=== PATIENT | female | born 1945 | race Caucasian/White ===

== ENCOUNTER 2023-09-06 15:24 | Emergency (ER) | payer MEDICARE, SELFPAY ==
[2023-09-06 15:40] VITALS: BP 113/61; PULSE 78; RESP 16; TEMP 36.3; O2SAT 98
--- NOTE | 2023-09-06 15:55 | ED.GENADULT ---
HPI - General Adult General Chief complaint: Upper Respiratory Infection Stated complaint: Cough Time Seen by Provider: 09/06/23 15:54 Source: patient, family, RN notes reviewed and old records reviewed Mode of arrival: ambulatory Limitations: no limitations History of Present Illness HPI narrative: 78 year old female who presents to [facility] care accompanied by spouse with complaints of 6 day history of productive cough, nasal congestion with drainage, some body aches and initially had a low grade fever. Patient reports that they recently moved her from [place] and she has not established with a physician in area yet. Patient reoirts that she is 3 weeks out from a right lumpectomy for breast cancer and will be having radiation treatment in near future. Patient states that she has been taking Tylenol a nd Suyapa for her symptoms but has progressively gotten worse. Patient denies any shortness of breath with no tachypnea noted. Patient reports that she has long history of arthritis and takes daily pain medication of OxyContin and [place] with Zofran for her chronic back pain. Patient has numerous allergies reported. MD complaint: cough productive, nasal congestion and drainage. Onset (ago): day(s) (6) Treatments prior to arrival: other (Tylenol and suyapa) Related Data Home Medications Medication Instructions Recorded Confirmed atenolol 100 mg tablet 100 mg PO DAILY 09/06/23 09/06/23 atorvastatin 10 mg tablet 10 mg PO DAILY 09/06/23 09/06/23 cholecalciferol (vitamin D3) 1,250 1,250 mcg PO MONTHLY 09/06/23 09/06/23 mcg (50,000 unit) capsule ciclopirox 0.77 % topical cream 1 applic topical BID 09/06/23 09/06/23 clobetasol 0.05 % scalp solution 1 applic topical DIRECTED 09/06/23 09/06/23 duloxetine 60 mg capsule,delayed 60 mg PO BID 09/06/23 09/06/23 release furosemide 20 mg tablet 20 mg PO DAILY 09/06/23 09/06/23 nabumetone 750 mg tablet 750 mg PO DAILY 09/06/23 09/06/23 ondansetron HCl 4 mg tablet 4 mg PO DIRECTED 09/06/23 09/06/23 pantoprazole 40 mg tablet,delayed 40 mg PO DAILY 09/06/23 09/06/23 release potassium chloride 20 mEq 20 meq PO DAILY 09/06/23 09/06/23 tablet,extended release(part/cryst) spironolactone 25 mg tablet 25 mg PO DAILY 09/06/23 09/06/23 tamoxifen 20 mg tablet 20 mg PO DAILY 09/06/23 09/06/23 tizanidine 4 mg tablet 4 mg PO TID 09/06/23 09/06/23 Allergies Allergy/AdvReac Type Severity Reaction Status Date / Time acetaminophen Allergy Hives Verified 09/06/23 16:26 [From Darvocet-N 100] adhesive tape Allergy Rash Verified 09/06/23 16:26 amoxicillin [From Augmentin] Allergy Rash Verified 09/06/23 16:26 aspirin Allergy Gastrointestinal Verified 09/06/23 16:26 Upset azithromycin Allergy Hives Verified 09/06/23 16:26 Cephalosporins Allergy Rash Verified 09/06/23 16:26 clarithromycin Allergy Hives Verified 09/06/23 16:26 clavulanic acid Allergy Rash Verified 09/06/23 16:26 [From Augmentin] doxycycline Allergy Hives Verified 09/06/23 16:26 erythromycin base Allergy Hives Verified 09/06/23 16:26 ibuprofen Allergy Gastrointestinal Verified 09/06/23 16:26 Upset Iodinated Contrast Media Allergy Hives Verified 09/06/23 16:26 iodine Allergy Hives Verified 09/06/23 16:26 levofloxacin Allergy Rash Verified 09/06/23 16:26 meperidine Allergy Gastrointestinal Verified 09/06/23 16:26 Upset mold Allergy Congested Verified 09/06/23 16:26 morphine Allergy Hives Verified 09/06/23 16:26 paroxetine Allergy Gastrointestinal Verified 09/06/23 16:26 Upset pentazocine Allergy Gastrointestinal Verified 09/06/23 16:26 Upset propoxyphene Allergy Hives Verified 09/06/23 16:26 [From Darvocet-N 100] Sulfa (Sulfonamide Allergy Hives Verified 09/06/23 16:26 Antibiotics) lactase AdvReac Gastrointestinal Verified 09/06/23 16:26 Upset Review of Systems Review of Systems: CONSTITUTIONAL: Reports malaise, chills, sweats, has felt feverish. EYES: Denies v
== END 2023-09-06 16:27 | disposition home or self-care (01) ==
PROVIDERS: Emergency Provider Registered Nurse
DX: J32.9 Chronic sinusitis, unspecified (principal); M19.90 Unspecified osteoarthritis, unspecified site; E78.5 Hyperlipidemia, unspecified; I10 Essential (primary) hypertension; Z96.653 Presence of artificial knee joint, bilateral; Z85.3 Personal history of malignant neoplasm of breast; Z90.11 Acquired absence of right breast and nipple; Z96.612 Presence of left artificial shoulder joint; Z96.611 Presence of right artificial shoulder joint
CPT/HCPCS: 99213; G0463

== ENCOUNTER 2024-01-17 08:45 | Inpatient (IN) | payer MEDICARE, SELFPAY ==
[2024-01-17] VITALS (54 sets, daily range): BP systolic 75–128; BP diastolic 41–105; PULSE 95–133; RESP 18–37; TEMP 36.4–39.5; O2SAT 90–100; BMI 45.9
--- NOTE | ~2024-01-17 | XR_ITS ---
Portable chest x-ray Comparison: 01/22/2024 Clinical History: Respiratory failure Findings: Endotracheal tube, NG tube, and bilateral central venous lines are in satisfactory positio ns. There is probable left basilar atelectasis versus pneumonia. There are minimal central congestive changes. Cardiomediastinal silhouette is stable. Bones and soft tissues are unremarkable, aside fro m right shoulder arthroplasty. Impression: Minimal central congestive changes with left basilar atelectasis versus pneumonia. Correlate clinical ly. Support tubes, as above. Reviewed, dictated and finalized at location M. Impression: Minimal central congestive changes with left basilar atelectasis versus pneumon ia. Correlate clinically. Support tubes, as above.
--- NOTE | ~2024-01-17 | XR_ITS ---
EXAMINATION: XR abdomen/kub 1V DATE: 01/20/2024 14:43 INDICATION: Ileus TECHNIQUE: A supine view of the abdomen on 2 radiographs was obtained. COMPARISON: 01/19/2024 FINDINGS: Nasogastric tube tip in proximal side port in the body of the stomach. Cholecystectomy clips in right upper quadrant. Right internal ureteral stent in expected position with performed over the right lizandro al pelvis and bladder. No dilated loops of bowel to suggest obstruction. Bilateral total hip arthropl asties with prominent asymmetric polyethylene liner wear. IMPRESSION: 1. No dilated loops of bowel to suggest obstruction. Reviewed, dictated and finalized at location A.
--- NOTE | ~2024-01-17 | XR_ITS ---
EXAMINATION: XR chest port-a-cath/central DATE: 01/17/2024 16:48 INDICATION: Internal jugular central venous catheter placement TECHNIQUE: frontal view of the chest was obtained. COMPARISON: Chest radiograph dated 01/17/2024 FINDINGS: Dual lumen right internal jugular central venous catheter with distal tip at the midsuperior vena cav a. Unchanged mild elevation the right hemidiaphragm. No airspace opacities, pulmonary edema, pleural effusion or pneumothorax. The cardiomediastinal silhouette is normal. Bilateral total shoulder arthro plasties. IMPRESSION: 1. Right internal jugular central venous catheter tip in the midsuperior vena cava. No acute cardiopu lmonary disease. Reviewed, dictated and finalized at location A. IMPRESSION: 1. Right internal jugular central venous catheter tip in the midsuperior vena c leeanne. No acute cardiopulmonary disease.
--- NOTE | ~2024-01-17 | CT_ITS ---
EXAMINATION: CT abdomen pelvis wo con DATE: 01/17/2024 10:11 INDICATION: Upper abdominal pain. Nausea. Diarrhea. TECHNIQUE: Computed tomography (CT) of the abdomen and pelvis was performed without intravenous contr ast. Automated exposure control and iterative reconstruction technique were employed. The dose-length product was 1445.16 mGy-cm. COMPARISON: None. FINDINGS: The visualized portions of the lung bases demonstrate mild atelectasis. No pleural effusion . Calcified right hilar lymph nodes are consistent with old granulomatous disease. The heart size is normal. No pericardial effusion. Calcifications in the liver and spleen are consistent with old granu lomatous disease. There is diffuse hepatic steatosis. There are changes of cholecystectomy. The pancr eas and adrenal glands are normal. There is mild right hydronephrosis. There is 11 mm stone at right ureteropelvic junction. There is a 6.3 cm cyst in left kidney. There is a 1 mm stone in left kidney. There are no dilated loops of bowel. The appendix is normal. There is severe thoracic and lumbar spon dylosis. There are bilateral total hip arthroplasties with asymmetric liner wear. IMPRESSION: 1. 11 mm stone at right ureteropelvic junction with mild right hydronephrosis. 2. 1 mm nonobstructing left kidney stone. 3. 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 Reviewed, dictated and finalized at location A.
--- NOTE | ~2024-01-17 | US_ITS ---
EXAMINATION: US renal BI DATE: 01/17/2024 19:01 INDICATION: Acute kidney injury TECHNIQUE: Multiple ultrasound grayscale images of the kidneys were obtained. COMPARISON: CT dated 01/17/2024 FINDINGS: The right kidney measures 11.2 x 6.1 x 5.9 cm. The left kidney measures 14.9 x 7.0 x 5.2 cm. Inclusiv e of a 7.2 cm anechoic exophytic cyst at the upper pole of the left kidney. The kidneys demonstrate n ormal echogenicity. Prior mild right hydronephrosis as resolved. There is no hydronephrosis in either kidney. No stones identified. The bladder is is not clearly visualized, likely decompressed with a Rocha catheter reportedly in place. IMPRESSION: 1. 7.2 cm left renal cyst. Otherwise normal kidneys with no hydronephrosis. Reviewed, dictated and finalized at location A.
--- NOTE | ~2024-01-17 | XR_ITS ---
EXAMINATION: XR chest 1V portable DATE: 01/17/2024 12:47 INDICATION: Shortness of breath. TECHNIQUE: A single frontal view of the chest was obtained. COMPARISON: CT abdomen and pelvis 01/17/2024 FINDINGS: There is no pneumonia, pleural effusion, or pneumothorax. The heart size is normal. There a re prominent pericardial fat pads. There are bilateral shoulder arthroplasties. IMPRESSION: 1. No acute cardiopulmonary disease. Reviewed, dictated and finalized at location A.
--- NOTE | ~2024-01-17 | CT_ITS ---
EXAMINATION: CT chest abdomen pelvis wo con DATE: 01/19/2024 09:47 INDICATION: Ischemic bowel. Pneumonia and pulmonary edema. TECHNIQUE: Computed tomography (CT) of the chest, abdomen, and pelvis was performed without intraveno us contrast. Automated exposure control and iterative reconstruction technique were employed. The dos e-length product was 1950.50 mGy-cm. COMPARISON: CT abdomen and pelvis 01/17/2024 FINDINGS: CHEST CT: There is mild atelectasis in the lungs with a dependent predominance. There are patchy peripheral air space opacities in right upper lobe. Calcified pulmonary nodules and calcified hilar and mediastinal lymph nodes are consistent with old granulomatous disease. The endotracheal tube tip is in expected p osition in the trachea. There is a nasogastric tube tip is in the stomach. There are bilateral should er arthroplasties. A right internal jugular central venous catheter is seen with tip in the superior vena cava. There is severe thoracic spondylosis. ABDOMEN/PELVIS CT: Calcifications in the liver and spleen are consistent with old granulomatous disease. There are cordon es of cholecystectomy. The pancreas, adrenal glands, and right kidney are normal. There is a right in ternal ureteral stent in expected position. There is an 8 mm stone in right renal pelvis. There is a 7.1 cm cyst in left kidney. There is a 2 mm stone in left kidney. The bladder is decompressed by a Fo aleks catheter. There are no dilated loops of bowel. The appendix is not visualized. There is a small v olume of ascites. There are no pathologically enlarged lymph nodes. There is edema of the intra-abdom inal fat and body wall. There are bilateral hip arthroplasties with asymmetric liner wear. There is s evere lumbar spondylosis. IMPRESSION: 1. Patchy airspace opacities in right lung upper lobe, consistent with atelectasis versus pneumonia. 2. Small pleural effusions, right worse than left. 3. Small volume of ascites. 4. 8 mm stone in right renal pelvis with right internal ureteral stent in expected position. 5. 2 mm nonobstructing left kidney stone. Reviewed, dictated and finalized at location A. IMPRESSION: 1. Patchy airspace opacities in right lung upper lobe, consistent with atelecta sis versus pneumonia. 2. Small pleural effusions, right worse than left. 3. Small volume of ascites. 4. 8 mm stone in right renal pelvis with right internal ureteral stent in expec yolanda position. 5. 2 mm nonobstructing left kidney stone.
--- NOTE | ~2024-01-17 | CT_ITS ---
EXAMINATION: CT brain wo con DATE: 01/23/2024 14:25 INDICATION: Altered mental status TECHNIQUE: Computed tomography (CT) of the head was performed without intravenous contrast. Sagittal and coronal reconstructions were performed. The mA was adjusted according to patient size. Iterative reconstruction technique was employed. The dose-length product was 681.00 mGy-cm. COMPARISON: None FINDINGS: No acute intracranial hemorrhage, acute infarction or abnormal extra axial fluid collection. Ventricl es are normal and symmetric. No mass/mass effect. Changes of bilateral intraocular lens replacement. The orbits and mastoid air cells are normal. Near complete opacification of the left maxillary sinus. Endotracheal tube and orogastric tube seen extending through the oral cavity. Intracranial calcified cerebral atherosclerosis is noted. IMPRESSION: 1. No acute intracranial process. Reviewed, dictated and finalized at location A.
--- NOTE | ~2024-01-17 | XR_ITS ---
EXAMINATION: XR chest 1V portable DATE: 01/21/2024 05:41 INDICATION: Intubated. Respiratory failure. TECHNIQUE: A single frontal view of the chest was obtained. COMPARISON: Chest single view 01/20/2024 FINDINGS: There are airspace opacities in the lower lung zones. A calcified right lung nodule and handy cified right hilar and mediastinal lymph nodes are consistent with old granulomatous disease. There i s a small left pleural effusion. No pneumothorax. Cardiomegaly is noted. The endotracheal tube tip is 3.6 cm above the annamaria. The nasogastric tube tip is beyond the inferior margin of the radiograph, b ut at least to the stomach. A left internal jugular central venous catheter is seen with tip at the s uperior cavoatrial junction. A right internal jugular central venous catheter is seen with tip in the superior vena cava. There are bilateral shoulder arthroplasties. IMPRESSION: 1. Airspace opacities in the lower lung zones with improvement on the right and worsening on the left , consistent with atelectasis versus pneumonia. 2. Stable small left pleural effusion. 3. Cardiomegaly. Reviewed, dictated and finalized at location A. IMPRESSION: 1. Airspace opacities in the lower lung zones with improvement on the right and worsening on the left, consistent with atelectasis versus pneumonia. 2. Stable small left pleural effusion. 3. Cardiomegaly.
--- NOTE | ~2024-01-17 | XR_ITS ---
EXAMINATION: XR chest port-a-cath/central DATE: 01/19/2024 14:42 INDICATION: Left internal jugular central venous dialysis catheter placement TECHNIQUE: frontal view of the chest was obtained. COMPARISON: Chest radiograph and CT dated 01/19/2024 FINDINGS: New large bore dual lumen left internal jugular central venous catheter with distal tip at the superi or cavoatrial junction. Unchanged smaller caliber right internal jugular central venous catheter with distal tip at the caudal superior vena cava. Endotracheal tube tip 5.0 cm above the annamaria. Nasogast nathanael tube extends below the left hemidiaphragm with distal tip collimated off the study. Opacities at the bilateral perihilar regions and lower lung zones. No pleural effusion or pneumothora x. Cardiomegaly. Bilateral total shoulder arthroplasties. IMPRESSION: 1. Lines and tubes in expected positions as detailed above. 2. Opacities in the bilateral lower lungs and perihilar regions which could represent atelectasis, pn eumonia, mild pulmonary edema or some combination are of. 2. Cardiomegaly. Reviewed, dictated and finalized at location A. IMPRESSION: 1. Lines and tubes in expected positions as detailed above. 2. Opacities in the bilateral lower lungs and perihilar regions which could rep resent atelectasis, pneumonia, mild pulmonary edema or some combination are of. 2. Cardiomegaly.
--- NOTE | ~2024-01-17 | XR_ITS ---
EXAMINATION: XR chest 1V portable DATE: 01/20/2024 05:42 INDICATION: Intubated. Respiratory failure. TECHNIQUE: A single frontal view of the chest was obtained. COMPARISON: Chest single view 01/19/2024, chest CT 01/19/2024 FINDINGS: There are airspace opacities in the lower lung zones. There are small pleural effusions. No pneumothorax. Cardiomegaly is noted. Calcified right hilar and mediastinal lymph nodes are consisten t with old granulomatous disease. The endotracheal tube tip is 5.2 cm above the annamaria. The nasogastr ic tube tip is in the stomach. A left internal jugular central venous catheter is seen with tip at th e superior cavoatrial junction. A right internal jugular central venous catheter is seen with tip in the superior vena cava. There are bilateral shoulder arthroplasties. IMPRESSION: 1. Stable airspace opacities in the lower lung zones, consistent with atelectasis versus pneumonia. 2. Small pleural effusions. 3. Cardiomegaly. Reviewed, dictated and finalized at location A. IMPRESSION: 1. Stable airspace opacities in the lower lung zones, consistent with atelectas is versus pneumonia. 2. Small pleural effusions. 3. Cardiomegaly.
--- NOTE | ~2024-01-17 | XR_ITS ---
EXAMINATION: XR chest 1V portable DATE: 01/19/2024 05:25 INDICATION: Intubated. Respiratory failure. TECHNIQUE: A single frontal view of the chest was obtained. COMPARISON: Chest single view 01/18/2024, CT abdomen and pelvis 01/17/2024 FINDINGS: The patient is rotated to her right. There are airspace opacities in right mid and lower humberto ng zones and left lower lung zone. No pleural effusion or pneumothorax. The heart size is normal. The endotracheal tube tip is 2.8 cm above the annamaria. A right internal jugular central venous catheter i s seen with tip in the superior vena cava. The nasogastric tube tip is beyond the inferior margin of the radiograph, but at least to the stomach. Bilateral shoulder arthroplasties are noted. IMPRESSION: 1. Stable airspace opacities in right mid and lower lung zones and left lower lung zone, consistent w ith atelectasis or less likely pneumonia. Reviewed, dictated and finalized at location A. IMPRESSION: 1. Stable airspace opacities in right mid and lower lung zones and left lower l kiarra zone, consistent with atelectasis or less likely pneumonia.
--- NOTE | ~2024-01-17 | XR_ITS ---
EXAMINATION: XR chest 1V portable DATE: 01/22/2024 08:03 INDICATION: Intubated. TECHNIQUE: A single frontal view of the chest was obtained. COMPARISON: Chest single view 01/21/2024 FINDINGS: The patient is rotated to her right. There are airspace opacities in the lower lung zones. There is a small left pleural effusion. No pneumothorax. Cardiomegaly is noted. The endotracheal tube tip is 1.9 cm above the annamaria. A right internal jugular central venous catheter is seen with tip in the superior vena cava. A left internal jugular central venous catheter is seen with tip in the prox imal right atrium. There are bilateral shoulder arthroplasties. IMPRESSION: 1. Stable airspace opacities in the lower lung zones, consistent with atelectasis versus pneumonia. 2. Stable small left pleural effusion. 3. Cardiomegaly. Reviewed, dictated and finalized at location A. IMPRESSION: 1. Stable airspace opacities in the lower lung zones, consistent with atelectas is versus pneumonia. 2. Stable small left pleural effusion. 3. Cardiomegaly.
--- NOTE | ~2024-01-17 | XR_ITS ---
EXAMINATION: XR chest ET placement, XR chest ET placement, XR abdomen gastric tube insert DATE: 01/17/2024 23:18 INDICATION: Endotracheal tube placement and repositioning and orogastric tube placement. TECHNIQUE: 1. Frontal view of the chest was obtained. 2. Repeat frontal view of the chest was obtained following endotracheal tube repositioning. 2. Frontal view of the abdomen was obtained. COMPARISON: Chest radiograph dated 01/17/2024 at 4:40 PM FINDINGS: CHEST: Endotracheal tube tip extends to level of the annamaria on the initial image. This is been withdrawn on the subsequent image with distal tip 3.5 cm above the annamaria. There is a right internal jugular centr al venous catheter with distal tip at the caudal superior vena cava. Unchanged mild elevation of the right hemidiaphragm. Mild streaky atelectasis at the left lung base a nd lateral right lower lung zone. No pulmonary edema, pleural effusion or pneumothorax. Arch size is within normal limits accounting for AP technique. Bilateral total shoulder arthroplasties. ABDOMEN: Nasogastric tube tip in proximal side port in the body the stomach. Cholecystectomy clips in right up per quadrant. IMPRESSION: 1. Endotracheal tube and nasogastric tube in expected positions as detailed above. 2. Unchanged mild elevation of the right hemidiaphragm with streaky atelectasis versus less likely pn eumonia at the bilateral lower lung zones. Reviewed, dictated and finalized at location A. IMPRESSION: 1. Endotracheal tube and nasogastric tube in expected positions as detailed abo ve. 2. Unchanged mild elevation of the right hemidiaphragm with streaky atelectasis versus less likely pneumonia at the bilateral lower lung zones. IMPRESSION: 1. Endotracheal tube and nasogastric tube in expected positions as detailed abo ve. 2. Unchanged mild elevation of the right hemidiaphragm with streaky atelectasis versus less likely pneumonia at the bilateral lower lung zones.
--- NOTE | ~2024-01-17 | CT_ITS ---
EXAMINATION: CT chest abdomen pelvis wo con DATE: 01/23/2024 14:25 INDICATION: Fever. TECHNIQUE: Computed tomography (CT) of the chest, abdomen, and pelvis was performed without intraveno us contrast. Automated exposure control and iterative reconstruction technique were employed. The dos e-length product was 1835.95 mGy-cm. COMPARISON: CT chest, abdomen, and pelvis 01/19/2024 FINDINGS: CHEST CT: The lungs demonstrate patchy peripheral airspace opacities in right upper lobe. There is mild atelect asis bilaterally with a dependent predominance. The endotracheal tube tip is in expected location. Th ere are small pleural effusions. The heart is normal. No pericardial effusion. A left internal jugula r central venous catheter is seen with tip at the superior cavoatrial junction. A right internal jugu lar central venous catheter is seen with tip in the superior vena cava. The nasogastric tube tip is i n the stomach. There are bilateral shoulder arthroplasties. There is severe thoracic spondylosis. ABDOMEN/PELVIS CT: Calcifications in the liver and spleen are consistent with old granulomatous disease. There are cordon es of cholecystectomy. The pancreas and adrenal glands are normal. There is a right internal ureteral stent in expected position. There is an 8 mm stone in right renal pelvis. There is a 6.9 cm cyst in left kidney. There is a 2 mm nonobstructing left kidney stone. There are no dilated loops of bowel. T he appendix is not visualized. There is a small volume of ascites. There is a catheter in the bladder . There are bilateral total hip arthroplasties. There is severe lumbar spondylosis. IMPRESSION: 1. Persistent patchy airspace opacities in right lung upper lobe, consistent with atelectasis versus pneumonia. 2. Small pleural effusions. 3. Small volume ascites. 4. 8 mm stone in right renal pelvis. Right internal ureteral stent in expected position. 5. 2 mm nonobstructing left kidney stone. Reviewed, dictated and finalized at location A. IMPRESSION: 1. Persistent patchy airspace opacities in right lung upper lobe, consistent wi th atelectasis versus pneumonia. 2. Small pleural effusions. 3. Small volume ascites. 4. 8 mm stone in right renal pelvis. Right internal ureteral stent in expected position. 5. 2 mm nonobstructing left kidney stone.
--- NOTE | ~2024-01-17 | XR_ITS ---
EXAMINATION: XR chest 1V portable DATE: 01/18/2024 05:38 INDICATION: Intubated. Respiratory failure. TECHNIQUE: A single frontal view of the chest was obtained. COMPARISON: Chest single view 01/17/2024, CT abdomen and pelvis 01/17/2024 FINDINGS: Sensitivity is decreased by obesity. There is mild atelectasis in the lower lung zones. No pleural effusion or pneumothorax. The heart size is normal. There are prominent pericardial fat pads. Calcified right hilar lymph nodes are consistent with old granulomatous disease. The endotracheal tu be tip is 4.2 cm above the annamaria. A right internal jugular central venous catheter is seen with tip at the superior cavoatrial junction. The nasogastric tube tip is beyond the inferior margin of the ra diograph, but at least to the stomach. There are bilateral shoulder arthroplasties. IMPRESSION: 1. Mild atelectasis in the lower lung zones. Reviewed, dictated and finalized at location A.
--- NOTE | ~2024-01-17 | XR_ITS ---
EXAMINATION: XR stent kub - surgery DATE: 01/17/2024 14:57 INDICATION: Right-sided ureteral stent placement. TECHNIQUE: 3 fluoroscopic images of the abdomen and pelvis were obtained during urologic procedure pe rformed by Dr. Gudino. Radiologist was not present for the procedure or imaging. COMPARISON: CT dated 01/17/2024 FINDINGS: There is cannulation and retrograde contrast injection into the right ureter extending into the renal pelvis and superimposed calyces of the horizontally oriented right kidney. There appears be a subtle persistent filling defect lower density than the injected contrast at the right ureteropelvic juncti on likely representing the previous noted stone. Final image demonstrates placement of a right architecture internship al ureteral stent with proximal loop formed in the right renal pelvis. It is unclear whether the ston e has been removed. IMPRESSION: 1. Persistent stone at the right ureteropelvic junction with placement of a right internal ureteral s tent in expected position. Is unclear the stone has been removed on the final image and would correla te with procedure note for further detail. Reviewed, dictated and finalized at location A. IMPRESSION: 1. Persistent stone at the right ureteropelvic junction with placement of a rig ht internal ureteral stent in expected position. Is unclear the stone has been removed on the final image and would correlate with procedure note for further detail.
[2024-01-17 09:15] LABS: Hematocrit 38.2 % (37.0-47.0); Hemoglobin 12.8 g/dL (12.0-15.0); Mean Corpuscular HGB Conc 33.5 g/dl (32-36); Mean Corpuscular Hemoglobin 32.8 pg (26-34); Mean Corpuscular Volume 97.9 fl (80-100); Mean Platelet Volume 10.3 fl (7.4-10.4); Platelet Count Result 135 k/mm3 (150-375); Red Cell Distribution Width 13.5 % (11.5-14.5); White Blood Count 13.5 K/mm3 (4.5-10.0)
--- NOTE | 2024-01-17 09:15 | ECG_ITS ---
Test Date: 2024-01-17 09:17:11 Measurements Intervals [place] Rate: 103 P: -28 VT: 154 QRS: -25 QRSD: 87 T: 13 QT: 337 QTc: 443 Interpretive Statements SINUS TACHYCARDIA BORDERLINE LEFT AXIS DEVIATION [QRS AXIS < -20] LOW QRS VOLTAGE IN PRECORDIAL LEADS [QRS DEFLECTION < 1.0 mV IN CHEST LEADS] MINIMAL VOLTAGE CRITERIA FOR LVH, CONSIDER NORMAL VARIANT [MEETS CRITERIA IN ONE OF: R(aVL), S(V1), R(V5), R(V5/V6)+S(V1)] No previous ECG available for comparison Electronically Signed On 01-17-2024 10:25:15 CDT by Yayo Meyer M.D.
--- NOTE | 2024-01-17 09:32 | ED_ITS ---
HPI - Nausea/Vomiting/Diarrhea General Chief complaint: Nausea/Vomiting/Diarrhea Stated complaint: N/V Time Seen by Provider: 01/17/24 09:20 History of Present Illness HPI Narrative: 78-year-old female history of IBS, CHF, hypertension osteoarthritis presents to the emergency room [facility] for evaluation of sudden onset of nausea and diarrhea. Patient states she developed nausea yesterday and has had multiple episodes of nonmelanotic loose stools. The patient states the diarrhea is consistent with her IBS. EMS delivered 4 mg of IV Zofran, patient states her nausea is improved. Patient endorses upper abdominal pain, describes the pain as a spasming sensation. Denies history of diverticulitis. denies fever. Related Data Home Medications Medication Instructions Recorded Confirmed atenolol 100 mg tablet 100 mg PO DAILY 09/06/23 09/06/23 atorvastatin 10 mg tablet 10 mg PO DAILY 09/06/23 09/06/23 cholecalciferol (vitamin D3) 1,250 1,250 mcg PO MONTHLY 09/06/23 09/06/23 mcg (50,000 unit) capsule ciclopirox 0.77 % topical cream 1 applic topical BID 09/06/23 09/06/23 clobetasol 0.05 % scalp solution 1 applic topical DIRECTED 09/06/23 09/06/23 duloxetine 60 mg capsule,delayed 60 mg PO BID 09/06/23 09/06/23 release furosemide 20 mg tablet 20 mg PO DAILY 09/06/23 09/06/23 nabumetone 750 mg tablet 750 mg PO DAILY 09/06/23 09/06/23 ondansetron HCl 4 mg tablet 4 mg PO DIRECTED 09/06/23 09/06/23 pantoprazole 40 mg tablet,delayed 40 mg PO DAILY 09/06/23 09/06/23 release potassium chloride 20 mEq 20 meq PO DAILY 09/06/23 09/06/23 tablet,extended release(part/cryst) spironolactone 25 mg tablet 25 mg PO DAILY 09/06/23 09/06/23 tamoxifen 20 mg tablet 20 mg PO DAILY 09/06/23 09/06/23 tizanidine 4 mg tablet 4 mg PO TID 09/06/23 09/06/23 Allergies Allergy/AdvReac Type Severity Reaction Status Date / Time acetaminophen Allergy Hives Verified 01/17/24 08:59 [From Darvocet-N 100] adhesive tape Allergy Rash Verified 01/17/24 08:59 amoxicillin [From Augmentin] Allergy Rash Verified 01/17/24 08:59 azithromycin Allergy Hives Verified 01/17/24 08:59 Cephalosporins Allergy Rash Verified 01/17/24 08:59 clarithromycin Allergy Hives Verified 01/17/24 08:59 clavulanic acid Allergy Rash Verified 01/17/24 08:59 [From Augmentin] doxycycline Allergy Hives Verified 01/17/24 08:59 erythromycin base Allergy Hives Verified 01/17/24 08:59 Iodinated Contrast Media Allergy Hives Verified 01/17/24 08:59 iodine Allergy Hives Verified 01/17/24 08:59 levofloxacin Allergy Rash Verified 01/17/24 08:59 mold Allergy Congested Verified 01/17/24 08:59 morphine Allergy Hives Verified 01/17/24 08:59 propoxyphene Allergy Hives Verified 01/17/24 08:59 [From Darvocet-N 100] Sulfa (Sulfonamide Allergy Hives Verified 01/17/24 08:59 Antibiotics) aspirin AdvReac Gastrointestinal Verified 01/17/24 12:47 Upset ibuprofen AdvReac Gastrointestinal Verified 01/17/24 12:47 Upset lactase AdvReac Gastrointestinal Verified 01/17/24 08:59 Upset meperidine AdvReac Gastrointestinal Verified 01/17/24 12:47 Upset paroxetine AdvReac Gastrointestinal Verified 01/17/24 12:47 Upset pentazocine AdvReac Gastrointestinal Verified 01/17/24 12:47 Upset Review of Systems Review of Systems: ROS unremarkable except for noted in HPI PMFSH Past Medical History Medical History Arthritis Breast cancer Bronchitis Chronic back pain Hyperlipidemia Hypertension Pneumonia Sarcoma right knee Seasonal allergies Surgical History Surgical History H/O bilateral hip replacements History of bilateral knee replacement History of lumpectomy of right breast History of replacement of both shoulder joints Hx of cholecystectomy Social History Social History Smoking status: Never smoker Alcohol intake: current Alcohol use details: rare Substance use: current Substance use type: opiates Other substance usage details: for chronic back pain Living arrangements: with family Gender identity (if verbalized by the patient): Female Exam Narrative: GENERAL: chronically ill-appearing, well-nourished HEAD: Normocephalic, atraumatic. EYES: Conjunctivae normal, PERRLA and EOMI. CHEST: Clear to auscultation. No respiratory distress. No wheezes rales or rhonchi. HEART: Regular rate and rhythm. No murmur heard. Normal peripheral pulses. ABDOMEN: Soft, upper abdominal tenderness, morbidly obese, nondistended, normal active bowel sounds. BACK: No CVA tenderness EXTREMITIES: Normal range of motion. No edema. No clubbing or cyanosis SKIN: Warm, dry, no rash. No noted wounds NEURO: No focal deficits. Alert and oriented x3. MAEW. CN's II-XI intact bilaterally PSYCH: Cooperative. Normal mood and affect. Course Vital Signs Vital signs: Vital Signs Temperature 37.1 C 01/17/24 08:47 Pulse Rate 108 H 01/17/24 08:47 Respiratory Rate 32 H 01/17/24 08:47 Blood Pressure 110/57 L 01/17/24 08:47 Pulse Oximetry 95 01/17/24 08:47 Oxygen Delivery Room Air 01/17/24 08:47 Temperature 36.4 C 01/17/24 10:36 Pulse Rate 105 H 01/17/24 13:26 Respiratory Rate 32 H 01/17/24 13:26 Blood Pressure 94/58 L 01/17/24 13:26 Pulse Oximetry 100 01/17/24 13:26 Oxygen Delivery Room Air 01/17/24 08:47 MDM - Nausea/Vomiting/Diarrhea MDM Narrative Medical decision making narrative: 78-year-old female presented to the emergency room for evaluation of generalized abdominal pain associated with nausea. CT scan showed a 11 mm obstructed stone in the right distal ureter. UA shows evidence of cystitis. Patient had a mildly elevated leukocytosis. Urology was consulted, they are agreeable to take patient to the OR for urethral stent. During the course of her ER stay, patient became hypotensive. MD Hughes was consulted. urosepsis protocol was initiated. Lactic acid and blood cultures are pending. IV Cipro was ordered and is pending blood culture collection. Creatinine is 2 point, BUN 31, Consistent with AMARIS secondary to obstructed stone.Nor-E GTT was initiated peripherally due to patient having soft pressures. Blood pressures were in the 70s over 40s range. Lab Data 01/17/24 09:08 01/17/24 09:08 Labs: Lab Results 01/17/24 01/17/24 Range/Units 09:08 10:36 WBC 13.5 H (4.5-10.0) K/mm3 RBC 3.90 L (4.2-5.4) M/mm3 Hgb 12.8 (12.0-15.0) g/dL Hct 38.2 (37.0-47.0) % MCV 97.9 (80-100) fl MCH 32.8 (26-34) pg MCHC 33.5 (32-36) g/dl RDW 13.5 (11.5-14.5) % Plt Count 135 L (150-375) k/mm3 MPV 10.3 (7.4-10.4) fl Immature Gran % (Auto) Not Reportable Neut % (Auto) Not Reportable Lymph % (Auto) Not Reportable Mower % (Auto) Not Reportable Eos % (Auto) Not Reportable Baso % (Auto) Not Reportable Lymph # (Auto) Not Reportable Mower # (Auto) Not Reportable Eos # (Auto) Not Reportable Baso # (Auto) Not Reportable Abs Immat Gran (auto) Not Reportable Absolute Neuts (auto) Not Reportable Absolute Nucleated RBC Not Reportable Total Counted 100 Neutrophils % (Manual) 88 H (46-73) % Band Neutrophils % 10 H (0-6) % Lymphocytes % (Manual) 2.0 L (18-44) % Nucleated RBC % Not Reportable Abs Neuts (Manual) 13.23 H (1.7-7.2) K/mm3 Abs Lymphs (Manual) 0.27 L (1.1-4.5) K/mm3 Platelet Estimate Slightly decreased (Adequate) Schistocytes None seen Sodium 135 L (137-145) mmol/L Potassium 4.3 (3.4-5.0) mmol/L Chloride 105 (98-107) mmol/L Carbon Dioxide 13 L (22-30) mmol/L Anion Gap 17 H (4-12) mmol/L BUN 31 H (7-17) mg/dL Creatinine 2.90 H (0.7-1.0) mg/dL Estim Creat Clear Calc 17 ml/min Estimated GFR 16 L (59 - ) Glucose 158 H (65-110) mg/dL Calcium 8.0 L (8.4-10.2) mg/dL Total Bilirubin 1.3 (0.2-1.3) mg/dL AST 31 (14-36) U/L ALT 22 (6-35) U/L Alkaline Phosphatase 195 H (38-126) U/L NT-Pro-B Natriuret Pep 8340 H (19.9-100) pg/mL Total Protein 6.0 L (6.3-8.2) g/dL Albumin 3.1 L (3.5-5.1) g/dL Lipase 31 (23-300) U/L Urine Color Dark yellow (Yellow) Urine Appearance Turbid H (Clear) Urine pH 5.0 (5.0-9.0) Ur Specific [place] 1.026 (1.001-1.035) Urine Protein 2+ H (Negative) mg/dL Urine Glucose (UA) 3+ H (Negative) mg/dL Urine Ketones Trace H (Negative) mg/dL Ur Blood (Man) 3+ H (Negative) Urine Nitrate Negative (Negative) Urine Bilirubin 1+ H (Negative) Urine Urobilinogen 1.0 (<2.0) mg/dL Add Ur Microanalysis Reviewed Leukocyte Esterase Rfl 3+ H (Negative) ELOY/UL Urine RBC 21-50 H (0-2) /hpf Urine WBC >100 H (0-3) /hpf Ur Squamous Epith Cells Many H (Few) /hpf Urine Bacteria 4+ H /hpf Urine Casts 11-20 Discharge Plan Discharge Clinical Impression: Kidney stone, AMARIS (acute kidney injury), Acute hypotension Patient Disposition: Still a Patient Condition: Critical Time of Disposition: 13:30
[2024-01-17] MEDS: SODIUM CHLORIDE 0.9% IV 1,000 ML 999 ML IV CONT ×2 (09:50→12:15)
[2024-01-17 10:14] LABS: Albumin Level 3.1 g/dL (3.5-5.1); Alkaline Phosphatase 195 U/L (38-126); Anion Gap 17 mmol/L (4-12); Aspartate Amino Transferase 31 U/L (14-36); Bilirubin,Total 1.3 mg/dL (0.2-1.3); Blood Urea Nitrogen 31 mg/dL (7-17); Carbon Dioxide 13 mmol/L (22-30); Chloride 105 mmol/L (98-107); Estimated CRCL calculation 17 ml/min; Estimated Glomerular Filt Rate 16; Glucose 158 mg/dL (65-110); Lipase 31 U/L (23-300); Potassium 4.3 mmol/L (3.4-5.0); Sodium 135 mmol/L (137-145)
[2024-01-17 10:27] LABS: Band Neutrophils Percent 10 % (0-6); Lymphocytes Absolute Manual 0.27 K/mm3 (1.1-4.5); Neutrophils Absolute Manual 13.23 K/mm3 (1.7-7.2); Neutrophils Percent Manual 88 % (46-73); Total Cells Counted 100
[2024-01-17 10:28] LABS: Platelet Estimate Slightly Decreased (Adequate); Schistocytes None Seen
[2024-01-17 10:53] LABS: Alanine Aminotransferase 22 U/L (6-35)
[2024-01-17 10:58] LABS: Add Urine Microscopic? YES; Appearance Urine Turbid (Clear); Bacteria Urine 4+ /hpf; Bilirubin Urine 1+ (Negative); Blood Urine 3+ (Negative); Color Urine Dark Yellow (Yellow); Glucose Urine UA 3+ mg/dL (Negative); Ketones Urine Trace mg/dL (Negative); Leukocyte Esterase Ur 3+ LEU/UL (Negative); Need Manual Microscopic Reviewed; Nitrate Urine Negative (Negative); Protein Urine 2+ mg/dL (Negative); RBC Urine 21-50 /hpf (0-2); Specific Grav Ur 1.026 (1.001-1.035); Squamous Epithelial Cell Urine Many /hpf (Few); WBC Urine >100 /hpf (0-3)
[2024-01-17] MEDS: CIPROFLOXACIN 400 MG/D5W 200ML 200 ML 200 MG IVPB (12:02)
--- NOTE | 2024-01-17 12:45 | WPDURCON ---
Assessment and Plan Assessment and plan (1) Sepsis: Code(s): A41.9 - Sepsis, unspecified organism Status: Acute Assessment and Plan: Secondary to infected stone. Continue IV fluids, broad spectrum antibiotics, and management per primary team. Monitor BP, fever curve, WBC. Blood cultures pending (2) Right ureteral stone: Code(s): N20.1 - Calculus of ureter Status: Acute Assessment and Plan: 11 mm right UPJ stone with mild right hydro. Will proceed with cystoscopy and right ureteral stent placement emergently with Dr. Gudino. NPO diet. Discussed procedure with patient and her and they are agreeable to proceed. Understands temporary nature of stent and need for definitive stone management at a later date pending resolution of infection. (3) Hydronephrosis: Code(s): N13.30 - Unspecified hydronephrosis Status: Acute Assessment and Plan: As above (4) UTI (urinary tract infection): Code(s): N39.0 - Urinary tract infection, site not specified Status: Acute Assessment and Plan: Urine culture pending. Continue empiric antibiotics while awaiting culture results. Urology Consult Note HPI Date Seen: 01/17/24 Primary Care Provider: Sanjay Castro Consult Narrative Narrative: Ju Driscoll is a 78 year old female with no prior urologic history who is being seen in consultation for septic right ureteral stone. Yesterday she had onset of diffuse abdominal pain with diarrhea and weakness. She endorsed chills but no fevers. No nausea or vomiting. No dysuria or hematuria. Today she was extremely weak and therefore presented to the ER. On arrival, she was afebrile and vital signs were stable. Her BP declined since presentation to 70s/40s and she became mildly tachycardic and tachypneic. Labs demonstrated an elevated WBC of 13.5. Creatinine elevated at 2.9, however no prior labs to establish baseline. UA obtained via straight catheter was abnormal with turbid urine, 3+ leukocytes, 3+ blood, and >[address] of her abdomen/pelvis was completed which showed an 11 mm right UPJ stone with mild right hydronephrosis as well as a 1 mm nonobstructing left renal stone. At the time of my evaluation, she is feeling poorly with persistent abdominal pain. She denies dizziness or lightheadedness. Discussed with patient and her at the bedside need for right ureteral stent placement and they are agreeable. She is being resuscitated with IV fluids and central line placement is being considered due to hypotension. Review of Systems Review of Systems: All systems reviewed & are unremarkable except as noted in HPI and below PMFSH Past Medical History Medical History Arthritis Breast cancer Bronchitis Chronic back pain Hyperlipidemia Hypertension Pneumonia Sarcoma right knee Seasonal allergies Surgical History Surgical History H/O bilateral hip replacements History of bilateral knee replacement History of lumpectomy of right breast History of replacement of both shoulder joints Hx of cholecystectomy Social History Social History Smoking status: Never smoker Alcohol intake: current Alcohol use details: rare Substance use: current Substance use type: opiates Other substance usage details: for chronic back pain Living arrangements: with family Gender identity (if verbalized by the patient): Female Meds Home Medications and Allergies Home Medications Medication Instructions Recorded Confirmed Type amoxicillin 875 mg tablet 875 mg PO Q12H #20 tabs 09/06/23 Rx atenolol 100 mg tablet 100 mg PO DAILY 09/06/23 09/06/23 History atorvastatin 10 mg tablet 10 mg PO DAILY 09/06/23 09/06/23 History cholecalciferol (vitamin D3) 1,250 1,250 mcg PO MONTHLY 09/06/23 09/06/23 History mcg (50,000 unit) capsule ciclopirox 0.77 % topical cream 1 applic topical BID 09/06/23 09/06/23 History clobetasol 0.05 % scalp solution 1 applic topical DIRECTED 09/06/23 09/06/23 History duloxetine 60 mg capsule,delayed 60 mg PO BID 09/06/23 09/06/23 History release furosemide 20 mg tablet 20 mg PO DAILY 09/06/23 09/06/23 History nabumetone 750 mg tablet 750 mg PO DAILY 09/06/23 09/06/23 History ondansetron HCl 4 mg tablet 4 mg PO DIRECTED 09/06/23 09/06/23 History pantoprazole 40 mg tablet,delayed 40 mg PO DAILY 09/06/23 09/06/23 History release potassium chloride 20 mEq 20 meq PO DAILY 09/06/23 09/06/23 History tablet,extended release(part/cryst) spironolactone 25 mg tablet 25 mg PO DAILY 09/06/23 09/06/23 History tamoxifen 20 mg tablet 20 mg PO DAILY 09/06/23 09/06/23 History tizanidine 4 mg tablet 4 mg PO TID 09/06/23 09/06/23 History Allergies Allergy/AdvReac Type Severity Reaction Status Date / Time acetaminophen Allergy Hives Verified 01/17/24 08:59 [From Darvocet-N 100] adhesive tape Allergy Rash Verified 01/17/24 08:59 amoxicillin [From Augmentin] Allergy Rash Verified 01/17/24 08:59 azithromycin Allergy Hives Verified 01/17/24 08:59 Cephalosporins Allergy Rash Verified 01/17/24 08:59 clarithromycin Allergy Hives Verified 01/17/24 08:59 clavulanic acid Allergy Rash Verified 01/17/24 08:59 [From Augmentin] doxycycline Allergy Hives Verified 01/17/24 08:59 erythromycin base Allergy Hives Verified 01/17/24 08:59 Iodinated Contrast Media Allergy Hives Verified 01/17/24 08:59 iodine Allergy Hives Verified 01/17/24 08:59 levofloxacin Allergy Rash Verified 01/17/24 08:59 mold Allergy Congested Verified 01/17/24 08:59 morphine Allergy Hives Verified 01/17/24 08:59 propoxyphene Allergy Hives Verified 01/17/24 08:59 [From Darvocet-N 100] Sulfa (Sulfonamide Allergy Hives Verified 01/17/24 08:59 Antibiotics) aspirin AdvReac Gastrointestinal Verified 01/17/24 12:47 Upset ibuprofen AdvReac Gastrointestinal Verified 01/17/24 12:47 Upset lactase AdvReac Gastrointestinal Verified 01/17/24 08:59 Upset meperidine AdvReac Gastrointestinal Verified 01/17/24 12:47 Upset paroxetine AdvReac Gastrointestinal Verified 01/17/24 12:47 Upset pentazocine AdvReac Gastrointestinal Verified 01/17/24 12:47 Upset Vital Signs Vital Signs - 24 hr 01/17/24 08:47 01/17/24 09:15 01/17/24 09:31 Temperature 98.7 F Pulse Rate 108 H 106 H 102 H Respiratory Rate 32 H 23 H 20 Blood Pressure 110/57 L 85/47 L Pulse Oximetry 95 94 95 Oxygen Delivery Room Air 01/17/24 09:51 01/17/24 10:36 01/17/24 11:01 Temperature 97.6 F Pulse Rate 99 102 H 97 Respiratory Rate 20 20 20 Blood Pressure 87/45 L 126/105 H 91/46 L Pulse Oximetry 93 95 Oxygen Delivery 01/17/24 12:06 Temperature Pulse Rate 95 Respiratory Rate 25 H Blood Pressure 75/49 L Pulse Oximetry 94 Oxygen Delivery Exam Narrative: General: Awake, alert, appears acutely ill HEENT: Normocephalic, atraumatic, sclerae anicteric Respiratory: Normal respiratory effort, no accessory muscle use Abdomen: Nondistended, soft, nontender Skin: Normal coloration, warm and dry Neurologic: No focal neuro deficits noted Psychiatric: Appropriate mood and affect, judgment and insight intact Results Labs 01/17/24 09:08 01/17/24 09:08 Labs: Short CBC 01/17/24 Range/Units 09:08 WBC 13.5 H (4.5-10.0) K/mm3 Hgb 12.8 (12.0-15.0) g/dL Hct 38.2 (37.0-47.0) % Plt Count 135 L (150-375) k/mm3 BMP 01/17/24 09:08 Sodium 135 L Potassium 4.3 Chloride 105 Carbon Dioxide 13 L BUN 31 H Creatinine 2.90 H Glucose 158 H Calcium 8.0 L Liver Function 01/17/24 Range/Units 09:08 Total Bilirubin 1.3 (0.2-1.3) mg/dL AST 31 (14-36) U/L ALT 22 (6-35) U/L Alkaline Phosphatase 195 H (38-126) U/L Albumin 3.1 L (3.5-5.1) g/dL Urine 01/17/24 Range/Units 10:36 Urine Color Dark yellow (Yellow) Urine Appearance Turbid H (Clear) Urine pH 5.0 (5.0-9.0) Ur Specific [place] 1.026 (1.001-1.035) Urine Protein 2+ H (Negative) mg/dL Urine Glucose (UA) 3+ H (Negative) mg/dL
[2024-01-17] MEDS: fentaNYL CITRATE INJ (*CRX) 100 MCG/2 ML VIAL 50 MCG IV PUSH (12:47)
[2024-01-17] MEDS: ONDANSETRON INJ 4 MG/2 ML VIAL IV PUSH (12:51)
[2024-01-17] MEDS: NOREPINEPHRINE 8 MG/D5W 250 ML 8 MG/250 ML BAG 9.38 MG IV CONT (13:02)
[2024-01-17 13:15] LABS: NT Pro B Type Natriuretic Pept 8340 pg/mL (19.9-100)
--- NOTE | 2024-01-17 13:18 | PC.NURSE ---
2L applied to pt per USED [facility]
--- NOTE | 2024-01-17 13:21 | WPDHPUPDATE1 ---
History and Physical Update Update Date/Time: 01/17/24 13:21 History and Physical has been reviewed, including an updated exam of the patient. There are NO changes in the patient's condition. Risks, benefits, and alternatives have been discussed and questions answered. Patient agrees to proceed with procedure. Proceed with cystoscopy, right retrograde, right ureteral stent placement
--- NOTE | 2024-01-17 13:46 | PC.NURSE ---
pt to OR with SUNITHA Taylor and SUNITHA Holley. Davidro sent with pt and pt currently on Levophed at [facility] [place].
[2024-01-17] MEDS: AZTREONAM 1 GM in SODIUM CHLORIDE 0.9% IV 50 ML 100 ML IVPB ×2 (14:26→21:57)
[2024-01-17 14:45] LABS: Alveolar/Arterial O2 Gradient < 0.0 mmHg; Base Excess ABG -9.2 mEq/l (+/-2.0); Fractional Inspired Oxygen 28 %; HCO3 ABG 17.1 mEq/l (22.0-26.0); Oxygen Content ABG 16.9 %vol (16.0-22.0); Oxygen Saturation ABG 99.1 % (95.0-100.0); Oxyhemoglobin 98.7 % THb (90.0-100.0); PO2 ABG 189.2 mmHg (80.0-100.0); PO2 FiO2 Ratio Arterial Blood 6.76 %; Total Hemoglobin 11.9 g/dL (12.0-18.0)
[2024-01-17 14:47] LABS: pH ABG 7.261 (7.350-7.450)
[2024-01-17 14:48] LABS: Device NASAL CANNULA; Site Drawn ARTLINE
--- NOTE | 2024-01-17 14:53 | W.PM.PROC2 ---
Procedure Note - Detailed Date of Procedure 01/17/24 Pre-op Diagnosis 11 mm right UPJ stone with sepsis and UTI Post-op Diagnosis Same Procedure Performed Cystoscopy, right retrograde pyelogram ureteral stent placement 6 [place] contour Surgeon Dean Gudino MD Anesthesia General Description of Procedure Patient was taken to the operative suite. Patient had a central line and art line placed by anesthesia. She was then prepped draped usual sterile fashion. She was correctly identified. Nineteen [place] scope was inserted the bladder. There were no tumors noted. Right ureteral orifice was cannulated with a ureteral catheter and a pyelogram was performed. Contrast made its way up the kidney. At the very small pelvis. A wire was inserted all the way up to the renal pelvis. Six [place] contour stent was placed with the proximal end coiled in the renal pelvis and the distal bladder. Sixteen [place] Rocha was inserted the bladder inflated with 10 cc in the balloon. Patient is taken to ICU. Will address the stone later point time. This completes dictation. Please send a copy to my office Estimated Blood Loss 0 Urine Output 20 Drains Yes Packing No Pathology None sent Complications No immediate complications Condition Stable Disposition PACU
--- NOTE | 2024-01-17 14:56 | P.PNAN_ITS ---
Anes - Initial Pre Proc Eval Procedure: Operation Date: 01/17/24 13:30 Proposed Procedures p Cystoscopy, Right Stent Placement - Dean Gudino MD Date/Time: 01/17/24 14:56 Surgeon: Ghanshyam Bowen MD Pre Op Diagnosis: Kidney stone Patient Data Age: 78 Gender: F Height: 1.55 m Weight: 110.7 kg Last Vital Signs Temp 97.6 F 01/17/24 10:36 Pulse 105 H 01/17/24 13:26 Resp 32 H 01/17/24 13:26 BP 94/58 L 01/17/24 13:26 Pulse Ox 100 01/17/24 13:26 O2 Del Method Room Air 01/17/24 08:47 Allergies Allergy/AdvReac Type Severity Reaction Status Date / Time acetaminophen Allergy Hives Verified 01/17/24 08:59 [From Darvocet-N 100] adhesive tape Allergy Rash Verified 01/17/24 08:59 amoxicillin [From Augmentin] Allergy Rash Verified 01/17/24 08:59 azithromycin Allergy Hives Verified 01/17/24 08:59 Cephalosporins Allergy Rash Verified 01/17/24 08:59 clarithromycin Allergy Hives Verified 01/17/24 08:59 clavulanic acid Allergy Rash Verified 01/17/24 08:59 [From Augmentin] doxycycline Allergy Hives Verified 01/17/24 08:59 erythromycin base Allergy Hives Verified 01/17/24 08:59 Iodinated Contrast Media Allergy Hives Verified 01/17/24 08:59 iodine Allergy Hives Verified 01/17/24 08:59 levofloxacin Allergy Rash Verified 01/17/24 08:59 mold Allergy Congested Verified 01/17/24 08:59 morphine Allergy Hives Verified 01/17/24 08:59 propoxyphene Allergy Hives Verified 01/17/24 08:59 [From Darvocet-N 100] Sulfa (Sulfonamide Allergy Hives Verified 01/17/24 08:59 Antibiotics) aspirin AdvReac Gastrointestinal Verified 01/17/24 12:47 Upset ibuprofen AdvReac Gastrointestinal Verified 01/17/24 12:47 Upset lactase AdvReac Gastrointestinal Verified 01/17/24 08:59 Upset meperidine AdvReac Gastrointestinal Verified 01/17/24 12:47 Upset paroxetine AdvReac Gastrointestinal Verified 01/17/24 12:47 Upset pentazocine AdvReac Gastrointestinal Verified 01/17/24 12:47 Upset Home Medications Medication Instructions Recorded Confirmed Type atenolol 100 mg tablet 100 mg PO DAILY 09/06/23 01/17/24 History atorvastatin 10 mg tablet 10 mg PO DAILY 09/06/23 01/17/24 History cholecalciferol (vitamin D3) 1,250 1,250 mcg PO MONTHLY 09/06/23 01/17/24 History mcg (50,000 unit) capsule duloxetine 60 mg capsule,delayed 120 mg PO DAILY 09/06/23 01/17/24 History release nabumetone 750 mg tablet 750 mg PO Q12H 09/06/23 01/17/24 History ondansetron HCl 4 mg tablet 4 mg PO Q6H PRN Nausea 09/06/23 01/17/24 History pantoprazole 40 mg tablet,delayed 40 mg PO DAILY 09/06/23 01/17/24 History release spironolactone 25 mg tablet 25 mg PO DAILY 09/06/23 01/17/24 History tamoxifen 20 mg tablet 20 mg PO DAILY 09/06/23 01/17/24 History empagliflozin 10 mg tablet 10 mg PO DAILY 01/17/24 01/17/24 History (Jardiance) oxycodone 5 mg tablet 5 mg PO Q6-8H PRN Pain (Scale 01/17/24 01/17/24 History Score 7-10) sumatriptan succinate 50 mg tablet 50 mg PO Q8H PRN Headache 01/17/24 01/17/24 History Laboratory Tests 01/17/24 01/17/24 01/17/24 09:08 10:36 14:41 WBC 13.5 H K/mm3 (4.5-10.0) RBC 3.90 L M/mm3 (4.2-5.4) Hgb 12.8 g/dL (12.0-15.0) Hct 38.2 % (37.0-47.0) MCV 97.9 fl (80-100) MCH 32.8 pg (26-34) MCHC 33.5 g/dl (32-36) RDW 13.5 % (11.5-14.5) Plt Count 135 L k/mm3 (150-375) MPV 10.3 fl (7.4-10.4) Immature Gran % (Auto) Not Reportable Neut % (Auto) Not Reportable Lymph % (Auto) Not Reportable [place] % (Auto) Not Reportable Eos % (Auto) Not Reportable Baso % (Auto) Not Reportable Lymph # (Auto) Not Reportable [place] # (Auto) Not Reportable Eos # (Auto) Not Reportable Baso # (Auto) Not Reportable Abs Immat Gran (auto) Not Reportable Absolute Neuts (auto) Not Reportable Absolute Nucleated RBC Not Reportable Total Counted 100 Neutrophils % (Manual) 88 H % (46-73) Band Neutrophils % 10 H % (0-6) Lymphocytes % (Manual) 2.0 L % (18-44) Nucleated RBC % Not Reportable Abs Neuts (Manual) 13.23 H K/mm3 (1.7-7.2) Abs Lymphs (Manual) 0.27 L K/mm3 (1.1-4.5) Platelet Estimate Slightly decreased (Adequate) Schistocytes None seen Puncture Site Artline ABG pH 7.261 L* (7.350-7.450) ABG pCO2 39.0 mmHg (35.0-45.0) ABG pO2 189.2 H mmHg (80.0-100.0) ABG PO2/FiO2 Ratio 6.76 % ABG HCO3 17.1 L mEq/l (22.0-26.0) ABG O2 Saturation 99.1 % (95.0-100.0) ABG O2 Content 16.9 %vol (16.0-22.0) ABG Base Excess -9.2 mEq/l (+/-2.0) A-a Gradient < 0.0 mmHg Oxyhemoglobin 98.7 % THb (90.0-100.0) Total Hemoglobin 11.9 L g/dL (12.0-18.0) O2 Delivery Device Nasal cannula O2 Liters/Min 2.0 LPM FiO2 28 % Sodium 135 L mmol/L (137-145) Potassium 4.3 mmol/L (3.4-5.0) Chloride 105 mmol/L (98-107) Carbon Dioxide 13 L mmol/L (22-30) Anion Gap 17 H mmol/L (4-12) BUN 31 H mg/dL (7-17) Creatinine 2.90 H mg/dL (0.7-1.0) Estim Creat Clear Calc 17 ml/min Estimated GFR 16 L (59 - ) Glucose 158 H mg/dL (65-110) Calcium 8.0 L mg/dL (8.4-10.2) Total Bilirubin 1.3 mg/dL (0.2-1.3) AST 31 U/L (14-36) ALT 22 U/L (6-35) Alkaline Phosphatase 195 H U/L (38-126) NT-Pro-B Natriuret Pep 8340 H pg/mL (19.9-100) Total Protein 6.0 L g/dL (6.3-8.2) Albumin 3.1 L g/dL (3.5-5.1) Lipase 31 U/L (23-300) Urine Color Dark yellow (Yellow) Urine Appearance Turbid H (Clear) Urine pH 5.0 (5.0-9.0) Ur Specific [place] 1.026 (1.001-1.035) Urine Protein 2+ H mg/dL (Negative) Urine Glucose (UA) 3+ H mg/dL (Negative) Urine Ketones Trace H mg/dL (Negative) Ur Blood (Man) 3+ H (Negative) Urine Nitrate Negative (Negative) Urine Bilirubin 1+ H (Negative) Urine Urobilinogen 1.0 mg/dL (<2.0) Add Ur Microanalysis Reviewed Leukocyte Esterase Rfl 3+ H ELOY/UL (Negative) Urine RBC 21-50 H /hpf (0-2) Urine WBC >100 H /hpf (0-3) Ur Squamous Epith Cells Many H /hpf (Few) Urine Bacteria 4+ H /hpf Urine Casts 11-20 Patient hx anesthesia problems: none Family hx anesthesia problems: none Results Review: All pre-operative results and documents have been reviewed as part of the pre-operative evaluation. [facility] Past Medical History Medical History Arthritis Breast cancer Bronchitis Chronic back pain Hyperlipidemia Hypertension Pneumonia Sarcoma right knee Seasonal allergies Surgical History Surgical History H/O bilateral hip replacements History of bilateral knee replacement History of lumpectomy of right breast History of replacement of both shoulder joints Hx of cholecystectomy Social History Social History Smoking status: Never smoker Alcohol intake: current Alcohol use details: rare Substance use: current Substance use type: opiates Other substance usage details: for chronic back pain Living arrangements: with family Gender identity (if verbalized by the patient): Female Anes - Eval Final PreProcedure Day of Procedure 01/17/24 14:56 Patient weight: morbidly obese Heart: regular rate and rhythm Lungs: clear to auscultation and decreased breath sounds Airway: Mallampati scale class II Neurological: alert and oriented and lethargic Last oral intake: >/= 8 hours ASA classification: V Emergent: yes Anesthetic plan: proceed Anesthesia type and monitoring: general GIVS and standard monitoring Results Review: All pre-operative results and documents have been reviewed as part of the pre- operative evaluation. Pt w HTN, hyperlipidemia, OA, hx breast CA. Now presents to ER w urosepsis and hypotension, rapidly worsening. Report from ER to OR that pt is rapidly deteriorating and will be transferred directly to OR for emergent management. I had a brief preop discussion w pt and her of 52 years in the hallway prior to transfer to OR 4 (cysto). I discussed need for preop central line, arterial line, possible intubation post op and certain ICU admission. I also discussed plan for IV sedation at this [facility] for this emergent procedure. Pt and her understand and wish to proceed. This note is entered late due to being in continuous contact w the pt from OR time until now. Informed Consent: The patient's anesthetic plan and its attendant risks and benefits were discussed with the patient/family/POA. Questions were solicited and answers provided to the satisfaction of the patient/family/POA.
--- NOTE | 2024-01-17 15:00 | WPDANESACPN ---
Arterial Cath Proc Note Consent: I have discussed with the patient/family/POA, the non-emergent placement of an arterial catheter, including its clinical necessity/indication and associated potential risks and complications. The patient/family/POA and/or understand(s) and acknowledge(s) the need to proceed with the arterial catheter insertion as an important element of the patient's clinical management. Given emergent patient conditions, temporal constraints may have precluded informed consent. Time-Out: A pre-procedural Time-Out was completed immediately before starting the procedure and confirmed: Patient Identification, Site, Procedure, Patient Position and the Availability of Requisite Equipment. Procedure Note Patient position: supine Insertion site: right radial Method of insertion: ultrasound-guided Composite Bond Technician prep: sterile gloves, mask and hat Site prep: chlorahexadine Skin anesthesia: 1% lidocaine Gauge: 20 gauge Length (cm): 4.4 cm Closure/Dressing: antimicrobial disc and tegaderm Complications: None immediately noted/suspected.
--- NOTE | 2024-01-17 15:01 | WPDANESCVCPN ---
Anes - Cent Venous Cath Note Consent: I have discussed with the patient/family/POA, the non-emergent placement of a central venous catheter, including its clinical necessity/indication and associated potential risks and complications. The patient/family/POA understand(s) and acknowledge(s) the need to proceed with central venous catheter insertion as an important element of the patient's clinical management given emergent patient conditions, temporal constraints may have precluded informed consent. Time-Out: A pre-procedural Time-Out was completed immediately before starting the procedure and confirmed: Patient Identification, Site, Procedure, Patient Position and the Availability of Requisite Equipment. Procedure Note Patient position: trendelenburg Central venous catheter insertion site: right internal jugular CVC method of insertion: ultrasound-guided Hand hygiene/Aseptic technique: Hand hygiene procedures were performed. Aseptic technique was maintained throughout the procedure. Sterile barrier precautions: Maximal sterile barrier precautions, including use of a cap, mask, sterile gown, sterile gloves and a sterile full body drape. Site prep: chlorhexidine Skin anesthesia: 1% lidocaine [place]: 7.5 Lumen: 3 Length (cm): 15 cm (16 cm. ) Depth of insertion (cm): 16 Closure/Dressing: suture, biopatch and tegaderm Complications: None immediately noted/suspected. Chest X Ray: Ordered/review to follow.
--- NOTE | 2024-01-17 15:25 | P.HP_ITS ---
H&P: HPI History of Present Illness Date/Time: 01/17/24 15:25 Chief Complaint: Weakness. Narrative: This is a 78-year-old female with hypertension, hyperlipidemia, prediabetes, breast cancer, and anxiety who presented to the emergency department via EMS from home for evaluation of weakness. The patient provides the following history and her provides additional information with the patient's permission. She has not been feeling well for the last day with symptoms to include fatigue, profound weakness, nausea, and loose stools. Today she started having pain throughout the abdomen which she has difficulties localizing. It is described as severe and normal spasming in nature. She has not been running a fever and denies sinus congestion, headache, sore throat, cough, chest pain, vomiting, melena, hematochezia, hematuria, and dysuria. She denies sick contacts. In the ED: She was afebrile on arrival, tachypneic, and tachycardic. Blood pressures were soft and trended downwards. Labs were significant for a WBC count of 13.5 (10% bands), hemoglobin 12.8, platelet 135, sodium 135, carbon dioxide 13, anion gap 17, BUN 31, creatinine 2.90, proBNP 8340. Urine was turbid with 2+ protein, 3+ glucose, trace ketones, 3+ blood, 1+ bilirubin, 3+ leukocyte esterase, 21 to 50 RBC, greater than 100 WBC, 4+ bacteria, and many squamous cells. Nasal MRSA screening was negative. CT of the abdomen and pelvis showed an 11 mm stone at the right ureteropelvic junction with mild right hydronephrosis. She was given ciprofloxacin 200 mg IV and she was taken to the OR on low-dose norepinephrine. In the OR: She underwent cystoscopy with right ureteral stent placement per Dr. Gudino. A central line and arterial line were placed per the anesthesiologist. Norepinephrine was titrated upwards and she did require vasopressin push dose. In the ICU: Upon arrival to the ICU she was tachypneic, tachycardic, and blood pressures in the 70s to 80s systolic. She was started on vasopressin in addition to the norepinephrine. Temperature spike to 103.1? F. Repeat labs were obtained and she was found to have a lactic acid level of 5.7 and increase in creatinine to 3.10. ABG showed a pH of 7.169, pCO2 38.2, bicarb 13.6. Given the patient's ongoing tachypnea, we did discuss noninvasive ventilation or even intubation due to concerns for impending respiratory failure. The patient was adamant that she did not want to try BiPAP as she has had in the past. She was given 2 amps sodium bicarbonate and was placed on Vapotherm which was much more comfortable for her. She seemed to improve for a couple of hours before her vital signs deteriorated (increasing tachycardia, tachypnea, and worsening hypotension). After multiple reassessments and discussions with the patient, her family, nursing staff, and the director of aviation Dr. Olsen, the decision was made to intubate the patient. Antibiotics were changed to aztreonam and vancomycin. Review of Systems Review of Systems: 12 systems were reviewed and are negativ e except for as per HPI. [facility] Past Medical History Medical History (Updated 01/17/24 @ 17:43 by Laurel Gomez PA-C) Arthritis Breast cancer Bronchitis Chronic back pain Hyperlipidemia Hypertension Pneumonia Sarcoma right knee Seasonal allergies Surgical History Surgical History (Updated 01/17/24 @ 15:57 by Laurel Gomez PA-C) History of arthroplasty of both hips History of arthroplasty of both knees History of arthroplasty of both shoulders History of cholecystectomy History of lumpectomy of right breast Family History Family History (Updated 01/17/24 @ 17:07 by Edith Parrish RN) Sibling Heart disease Hypertension Mother Heart disease Hypertension Father Heart disease CHF (congestive heart failure) Social History Social History (Updated 01/18/24 @ 00:06 by Laurel Gomez PA-C) Social History: Surrogate medical decision maker: Faustopraveen Driscoll, spouse. Code status: Full code. Smoking status: Never smoker Alcohol intake: never Alcohol use details: Rare alcohol use in moderation. Substance use: never Substance use type: opiates Other substance usage details: for chronic back pain Do You Feel Safe in your Home?: Yes Lack of Transportation: No Lack of Food: Never True Current Housing: I Have Housing Concerned About Future Housing: No Difficulty Paying Gas/Electric Bills: No Difficulty Paying for Meds: No Currently Unemployed: No Education: Decline to Answer Difficulty w/ Childcare or Family Care: No Living arrangements: with family Spiritual care concerns: No Meds Home Medications and Allergies Home Medications Medication Instructions Recorded Confirmed Type atenolol 100 mg tablet 100 mg PO DAILY 09/06/23 01/17/24 History atorvastatin 10 mg tablet 10 mg PO DAILY 09/06/23 01/17/24 History cholecalciferol (vitamin D3) 1,250 1,250 mcg PO MONTHLY 09/06/23 01/17/24 History mcg (50,000 unit) capsule duloxetine 60 mg capsule,delayed 60 mg PO DAILY 09/06/23 01/17/24 History release nabumetone 750 mg tablet 750 mg PO Q12H 09/06/23 01/17/24 History ondansetron HCl 4 mg tablet 4 mg PO Q6H PRN Nausea 09/06/23 01/17/24 History pantoprazole 40 mg tablet,delayed 40 mg PO DAILY 09/06/23 01/17/24 History release spironolactone 25 mg tablet 25 mg PO DAILY 09/06/23 01/17/24 History tamoxifen 20 mg tablet 20 mg PO DAILY 09/06/23 01/17/24 History Lactobacillus rhamnosus GG 10 1 cap PO HS 01/17/24 01/17/24 History billion cell capsule (Culturelle) cholecalciferol (vitamin D3) 50 2,000 unit PO DAILY 01/17/24 01/17/24 History mcg (2,000 unit) tablet (Vitamin D3) cranberry extract 500 mg capsule 500 mg PO DAILY 01/17/24 01/17/24 History cyanocobalamin (vitamin B-12) 2,500 mcg PO 2XW 01/17/24 01/17/24 History 2,500 mcg tablet empagliflozin 10 mg tablet 10 mg PO DAILY 01/17/24 01/17/24 History (Jardiance) furosemide 20 mg tablet 20 mg PO DAILY 01/17/24 01/17/24 History oxycodone 5 mg tablet 5 mg PO Q6-8H PRN Pain (Scale 01/17/24 01/17/24 History Score 7-10) sumatriptan succinate 50 mg tablet 50 mg PO Q8H PRN Headache 01/17/24 01/17/24 History Allergies Allergy/AdvReac Type Severity Reaction Status Date / Time acetaminophen Allergy Hives Verified 01/17/24 08:59 [From Darvocet-N 100] adhesive tape Allergy Rash Verified 01/17/24 08:59 amoxicillin [From Augmentin] Allergy Rash Verified 01/17/24 08:59 azithromycin Allergy Hives Verified 01/17/24 08:59 Cephalosporins Allergy Rash Verified 01/17/24 08:59 clarithromycin Allergy Hives Verified 01/17/24 08:59 clavulanic acid Allergy Rash Verified 01/17/24 08:59 [From Augmentin] doxycycline Allergy Hives Verified 01/17/24 08:59 erythromycin base Allergy Hives Verified 01/17/24 08:59 Iodinated Contrast Media Allergy Hives Verified 01/17/24 08:59 iodine Allergy Hives Verified 01/17/24 08:59 levofloxacin Allergy Rash Verified 01/17/24 08:59 mold Allergy Congested Verified 01/17/24 08:59 morphine Allergy Hives Verified 01/17/24 08:59 propoxyphene Allergy Hives Verified 01/17/24 08:59 [From Darvocet-N 100] Sulfa (Sulfonamide Allergy Hives Verified 01/17/24 08:59 Antibiotics) aspirin AdvReac Gastrointestinal Verified 01/17/24 12:47 Upset ibuprofen AdvReac Gastrointestinal Verified 01/17/24 12:47 Upset lactase AdvReac Gastrointestinal Verified 01/17/24 08:59 Upset meperidine AdvReac Gastrointestinal Verified 01/17/24 12:47 Upset paroxetine AdvReac Gastrointestinal Verified 01/17/24 12:47 Upset pentazocine AdvReac Gastrointestinal Verified 01/17/24 12:47 Upset Vital Signs Vital Signs - 24 hr 01/17/24 08:47 01/17/24 09:15 01/17/24 09:31 Temperature 98.7 F Pulse Rate 108 H 106 H 102 H Respiratory Rate 32 H 23 H 20 Blood Pressure 110/57 L 85/47 L Pulse Oximetry 95 94 95 Oxygen Delivery Room Air 01/17/24 09:51 01/17/24 10:36 01/17/24 11:01 Temperature 97.6 F Pulse Rate 99 102 H 97 Respiratory Rate 20 20 20 Blood Pressure 87/45 L 126/105 H 91/46 L Pulse Oximetry 93 95 Oxygen Delivery 01/17/24 12:06 01/17/24 13:02 01/17/24 13:19 Temperature Pulse Rate 95 99 103 H Respiratory Rate 25 H 31 H Blood Pressure 75/49 L 76/46 L 78/41 L Pulse Oximetry 94 90 Oxygen Delivery 01/17/24 13:20 01/17/24 13:26 Temperature Pulse Rate 104 H 105 H Respiratory Rate 32 H Blood Pressure 94/58 L Pulse Oximetry 100 Oxygen Delivery Exam Narrative: General: Ill-appearing female in the semi-Pino position in bed. Weight: 113.7 kg. BMI: 47.4. HEENT: Normocephalic, atraumatic. PERRL, EOMI. Sclera anicteric. Tacky mucous membranes. Neck: Supple. Central line in right IJ. Respiratory: Tachypneic and dyspneic. Respirations are shallow. SpO2 is 100% on 15 L high-flow. Lungs sound clear. Cardiovascular: Tachycardic with normal S1-S2. Gastrointestinal: Abdomen is soft and obese with hypoactive bowel sounds. Mild tenderness to palpation in the periumbilical region but no guarding or rebound tenderness. Skin: Hot and dry. Normal capillary refill. Extremities: No cyanosis, clubbing, or significant edema. Radial and pedal pulses intact. Neurological: Alert and oriented. Cranial nerves 2-12 are grossly intact. Generalized weakness without gross focal findings. Psychiatric: Cooperative with appropriate mood and affect. H&P: Results Labs Labs: Short CBC 01/17/24 Range/Units 09:08 WBC 13.5 H (4.5-10.0) K/mm3 Hgb 12.8 (12.0-15.0) g/dL Hct 38.2 (37.0-47.0) % Plt Count 135 L (150-375) k/mm3 BMP 01/17/24 09:08 Sodium 135 L Potassium 4.3 Chloride 105 Carbon Dioxide 13 L BUN 31 H Creatinine 2.90 H Glucose 158 H Calcium 8.0 L Liver Function 01/17/24 Range/Units 09:08 Total Bilirubin 1.3 (0.2-1.3) mg/dL AST 31 (14-36) U/L ALT 22 (6-35) U/L Alkaline Phosphatase 195 H (38-126) U/L Albumin 3.1 L (3.5-5.1) g/dL Urine 01/17/24 Range/Units 10:36 Urine Color Dark yellow (Yellow) Urine Appearance Turbid H (Clear) Urine pH 5.0 (5.0-9.0) Ur Specific Darling 1.026 (1.001-1.035) Urine Protein 2+ H (Negative) mg/dL Urine Glucose (UA) 3+ H (Negative) mg/dL Imaging Abdomen/Pelvis CT 01/17/24 10:23 IMPRESSION: 1. 11 mm stone at right ureteropelvic junction with mild right hydronephrosis. 2. 1 mm nonobstructing left kidney stone. 3. 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 Chest X-Ray 01/17/24 12:54 IMPRESSION: 1. No acute cardiopulmonary disease. Ureter Stent X-Ray 01/17/24 15:20 IMPRESSION: 1. Persistent stone at the right ureteropelvic junction with placement of a right internal ureteral stent in expected position. Is unclear the stone has been removed on the final image and would correlate with procedure note for further detail. ABG ABG results: 01/17/24 01/17/24 14:41 15:54 Puncture Site Artline Artline ABG pH 7.261 L* 7.169 L* ABG pCO2 39.0 38.2 ABG pO2 189.2 H 126.4 H ABG PO2/FiO2 Ratio 6.76 1.26 ABG HCO3 17.1 L 13.6 L ABG O2 Saturation 99.1 97.7 ABG O2 Content 16.9 16.2 ABG Base Excess -9.2 -14.1 A-a Gradient < 0.0 548.4 Oxyhemoglobin 98.7 97.7 Total Hemoglobin 11.9 L 11.6 L O2 Delivery Device Nasal cannula High flow nasal loy O2 Liters/Min 2.0 15.0 FiO2 28 100 Assessment and Plan Assessment and plan (1) Septic shock: Code(s): A41.9 - Sepsis, unspecified organism; R65.21 - Severe sepsis with septic shock Status: Acute Assessment and Plan: The patient meets criteria for septic shock with refractory hypotension, acute kidney injury, leukocytosis with bandemia, tachypnea, tachycardia, and fever. Source is urinary tract infection related to obstructing ureteral stone. * Central line inserted 01/17/2024 per anesthesiologist. * Currently on norepinephrine, vasopressin, and phenylephrine. * Maintain SBP > 95 and MAP > 65 for adequate end-organ perfusion. * Add stress dose steroids, hydrocortisone 100 mg q.8 hours. * Continue aztreonam and vancomycin pending blood and urine cultures. (2) Urinary tract infection: Code(s): N39.0 - Urinary tract infection, site not specified Status: Acute Assessment and Plan: UTI secondary to obstructing stones. Urinalysis was positive for 3+ leukocyte esterase, > 100 WBC, and 4+ bacteria. * Receive ciprofloxacin 200 mg in the ED; she has multiple drug allergies. * Changed to aztreonam 1 g q.8 hours and vancomycin pending cultures. (3) Right ureteral stone: Code(s): N20.1 - Calculus of ureter Status: Acute Assessment and Plan: CT scan showed an 11 mm stone at the right ureteropelvic junction with mild right hydronephrosis. * Postoperative day 0 status post cystoscopy with ureteral stent placement. * Needs close follow-up with Dr. Gudino for definitive management pending resolution of infection. (4) Hydronephrosis: Code(s): N13.30 - Unspecified hydronephrosis Status: Acute Assessment and Plan: CT scan showed mild right hydronephrosis secondary to ureteral stone. * Status post cystoscopy and stent placement. (5) Acute kidney injury: Code(s): N17.9 - Acute kidney failure, unspecified Status: Acute Assessment and Plan: Due to a combination of obstructing stone, hypoperfusion from hypotension, and sepsis; she is also on thiazide and loop diuretics as well as NSAIDS. * Rocha catheter has been inserted for strict I/O with minimal output since surgery. * Continue judicious IV fluid rehydration with close monitoring of volume status. * Renally dose all medications and hold nephrotoxic agents. * Renal ultrasound has been ordered for a.m. (6) Acute respiratory failure: Code(s): J96.00 - Acute respiratory failure, unspecified whether with hypoxia or hypercapnia Status: Acute Assessment and Plan: Patient is tachypneic and hypoxic due to acidosis. Chest x-ray is clear. * ABG shows concomitant metabolic and respiratory acidosis. * Patient was started on Vapotherm with some improvement but deteriorated and was subsequently intubated. * Currently on CMV with a tidal volume of 350, rate 24, peep 5. * Sedation with very low-dose fentanyl (patient reports significant nausea and vomiting) and midazolam. (7) Electrolyte abnormality: Code(s): E87.8 - Other disorders of electrolyte and fluid balance, not elsewhere classified Status: Acute Assessment and Plan: Patient has several electrolyte abnormalities including hypocalcemia and hypomagnesemia. * Calcium and magnesium will be replaced and monitored closely. (8) Hypertension: Code(s): I10 - Essential (primary) hypertension Status: Acute Assessment and Plan: She has refractory hypotension is currently on vasopressors as above. * Continue to hold antihypertensives. Quality VTE Prophylaxis VTE prophylaxis: pharmacologic ordered Hospitalist MIPS Advance Care Plan I have confirmed that the patient's Advanced Care Plan is present, code status is documented, or surrogate decision maker is listed in patient medical record.: Yes Medication Reconciliation I have utilized all available resources to obtain, update and review the patients current medications (includes all prescriptions, OTC, herbals, cannabis, and nutritional supplements).: Yes Critical Care Time Critical Care Time: Yes Total Critical Care Time: 95 Attestation: Due to a high probability of clinically significant, life threatening deterioration, the patient required my highest level of preparedness to intervene emergently and I personally spent this critical care time directly and personally managing the patient. This critical care time included obtaining a history; examining the patient; pulse oximetry; ordering and review of studies; arranging urgent treatment with development of a management plan; evaluation of patient's response to treatment; frequent reassessment; and discussions with other providers. It was exclusive of separately billable procedures and treating other patients and teaching time. Please see Assessment and Plan section and the rest of the note for further information on patient assessment and treatment.
[2024-01-17] MEDS: VASOPRESSIN INJ 100 UNITS in DEXTROSE 5% 95 ML IV CONT (15:36)
--- NOTE | 2024-01-17 15:37 | PC.NURSE ---
Patient received at this time. Norepinephrine drip increased to 30 mcg/min per Dr. Olsen and to start vasopressin at 0.04 units/min.
[2024-01-17] MEDS: SODIUM CHLORIDE 0.9% IV 1,000 ML 125 ML IV CONT (15:50)
[2024-01-17 15:59] LABS: Alveolar/Arterial O2 Gradient 548.4 mmHg; Base Excess ABG -14.1 mEq/l (+/-2.0); Fractional Inspired Oxygen 100 %; HCO3 ABG 13.6 mEq/l (22.0-26.0); Oxygen Content ABG 16.2 %vol (16.0-22.0); Oxygen Saturation ABG 97.7 % (95.0-100.0); Oxyhemoglobin 97.7 % THb (90.0-100.0); PCO2 ABG 38.2 mmHg (35.0-45.0); PO2 ABG 126.4 mmHg (80.0-100.0); PO2 FiO2 Ratio Arterial Blood 1.26 %; Total Hemoglobin 11.6 g/dL (12.0-18.0)
[2024-01-17 16:00] LABS: Device HIGH FLOW NASAL CANN; Site Drawn ARTLINE; pH ABG 7.169 (7.350-7.450)
[2024-01-17 16:02] LABS: Hematocrit 34.8 % (37.0-47.0); Hemoglobin 11.3 g/dL (12.0-15.0); Immature Platelet Fraction Pct 5.1 % (0.9-11.2); Mean Corpuscular HGB Conc 32.5 g/dl (32-36); Mean Corpuscular Hemoglobin 32.8 pg (26-34); Mean Corpuscular Volume 101.2 fl (80-100); Mean Platelet Volume 10.7 fl (7.4-10.4); Platelet Count Result 117 k/mm3 (150-375); Red Blood Count 3.44 M/mm3 (4.2-5.4); Red Cell Distribution Width 13.5 % (11.5-14.5); White Blood Count 23.5 K/mm3 (4.5-10.0)
[2024-01-17 16:08] LABS: Lactic Acid Reflex 5.7 mmol/L (0.7-2.0)
[2024-01-17 16:09] LABS: INR 1.4; Prothrombin Time 17.1 Seconds (11.1-14.7)
[2024-01-17 16:10] LABS: Partial Thromboplastin Time 38.6 Seconds (22.3-36.8)
[2024-01-17 16:21] LABS: Total Cells Counted 100
[2024-01-17 16:22] LABS: Band Neutrophils Percent 16 % (0-6); Eosinophils Absolute Manual 0.23 K/mm3 (0.02-0.50); Eosinophils Percent Manual 1 % (0-4); Lymphocytes Absolute Manual 1.88 K/mm3 (1.1-4.5); Lymphocytes Percent Manual 8 % (18-44); Metamyelocytes Percent 2 %; Monocytes Absolute Manual 0.23 K/mm3 (0.1-0.90); Monocytes Percent Manual 1 % (3-9); Neutrophils Absolute Manual 20.68 K/mm3 (1.7-7.2); Neutrophils Percent Manual 72 % (46-73)
[2024-01-17 16:23] LABS: Nucleated Red Blood Cells 1 %; Platelet Estimate Decreased (Adequate); Schistocytes None Seen
[2024-01-17] MEDS: SODIUM BICARBONATE 8.4% 50 MEQ/50 ML SYRINGE 100 MEQ IV PUSH (16:52)
[2024-01-17] MEDS: VANCOMYCIN 1,750 MG/NS 500 ML 1,750 MG/500 ML BAG 250 MG IVPB (16:56)
[2024-01-17] MEDS: ACETAMINOPHEN 650 MG SUPPOSITORY RECTAL (16:58)
[2024-01-17 17:29] LABS: Albumin Level 2.5 g/dL (3.5-5.1); Alkaline Phosphatase 107 U/L (38-126); Anion Gap 14 mmol/L (4-12); Aspartate Amino Transferase 34 U/L (14-36); Bilirubin,Total 0.9 mg/dL (0.2-1.3); Blood Urea Nitrogen 34 mg/dL (7-17); Calcium 7.1 mg/dL (8.4-10.2); Carbon Dioxide 14 mmol/L (22-30); Chloride 106 mmol/L (98-107); Estimated CRCL calculation 15 ml/min; Estimated Glomerular Filt Rate 14; Glucose 184 mg/dL (65-110); Phosphorus 3.2 mg/dL (2.5-4.5); Potassium 4.8 mmol/L (3.4-5.0); Sodium 134 mmol/L (137-145)
[2024-01-17] MEDS: MAGNESIUM SULF 2 GM/WATER 50ML 2 GM/50 ML BAG IVPB (17:51)
[2024-01-17] MEDS: CALCIUM GLUC 1,000 MG/NS 50 ML 1,000 MG/50 ML BAG 100 MG IVPB (17:52)
[2024-01-17] MEDS: ALBUMIN HUMAN 25% 25 GM/100 ML 100 ML IVPB (17:57)
[2024-01-17] MEDS: LACTATED RINGERS 1,000 ML 999 ML IV CONT (17:58)
[2024-01-17 18:09] LABS: Alanine Aminotransferase 20 U/L (6-35)
[2024-01-17] MEDS: SODIUM BICARBONATE 8.4% 150 MEQ in WATER, STERILE FOR INJECTION 950 ML 100 MEQ IV CONT (18:29)
[2024-01-17 18:31] LABS: MRSA (PCR) NOT DETECTED (NOT DETECTE)
[2024-01-17 18:49] LABS: Reflex Lactic Acid Yes or No Add Lactic
[2024-01-17] MEDS: NOREPINEPHRINE 8 MG/D5W 250 ML 8 MG/250 ML BAG 54.38 MG IV CONT (19:45)
[2024-01-17 19:47] LABS: Alveolar/Arterial O2 Gradient 357.4 mmHg; Carboxyhemoglobin 0.3 % THb (0-2.0); Fractional Inspired Oxygen 100 %; HCO3 ABG 15.9 mEq/l (22.0-26.0); Methemoglobin ABG 0.3 %THb (0-1.5); Oxygen Content ABG 16.7 %vol (16.0-22.0); Oxygen Saturation ABG 99.7 % (95.0-100.0); Oxyhemoglobin 99.1 % THb (90.0-100.0); PCO2 ABG 35.3 mmHg (35.0-45.0); PO2 ABG 320.3 mmHg (80.0-100.0); Reduced Hemoglobin 0.3 %THb (0-5.0); Total Hemoglobin 11.4 g/dL (12.0-18.0)
[2024-01-17 19:48] LABS: Device HIGH FLOW THERAPY; Site Drawn ARTLINE; pH ABG 7.272 (7.350-7.450)
[2024-01-17] MEDS: FAMOTIDINE 20 MG/2 ML VIAL IV PUSH (20:07)
[2024-01-17 20:20] LABS: Anion Gap 17 mmol/L (4-12); Blood Urea Nitrogen 34 mg/dL (7-17); Calcium 7.2 mg/dL (8.4-10.2); Carbon Dioxide 16 mmol/L (22-30); Chloride 102 mmol/L (98-107); Estimated CRCL calculation 16 ml/min; Estimated Glomerular Filt Rate 14; Glucose 146 mg/dL (65-110); Magnesium 1.7 mg/dL (1.6-2.3); Potassium 4.1 mmol/L (3.4-5.0); Sodium 135 mmol/L (137-145)
[2024-01-17 21:12] LABS: Lactic Acid Reflex 5.7 mmol/L (0.7-2.0)
[2024-01-17 21:42] LABS: Lactic Acid Reflex 5.7 mmol/L (0.7-2.0)
[2024-01-17] MEDS: HYDROCORTISONE SODIUM SUCCINATE 100 MG/2 ML VIAL IV PUSH (21:57)
[2024-01-17] MEDS: CENTRAL LINE FLUSH 10 ML IV PUSH (21:58)
[2024-01-17] MEDS: PHENYLEPHRINE HCL INJ 50 MG in DEXTROSE 5% IN WATER 250 ML/245 ML BAG 12 ML IV CONT (22:19)
[2024-01-17] MEDS: RAPID SEQUENCE INTUBATION KIT 1 EACH (22:45)
[2024-01-17] MEDS: MIDAZOLAM 100MG/NS 100ML(*CRX) 100 MG/100 ML BAG IV CONT (22:50)
[2024-01-17] MEDS: FENTANYL 2,500MCG/NS250ML(*CRX 2,500 MCG/250 ML BAG IV CONT (22:50)
--- NOTE | 2024-01-17 23:06 | WPDPROCEDUR ---
Procedures Intubation Intubation Date: 01/17/24 Intubation Time: 22:45 Consent: Patient gave verbal consent. A pre-procedural Time-Out was completed immediately before starting the procedure and confirmed: Patient Identification, Site, Procedure, Patient Position and the Availability of Requisite Equipment: Yes Sedative: etomidate Mg given: 20 Paralytic: rocuronium Mg given: 50 Laryngoscope: fiber optic video scope Assist device used: fiber optic device ET tube size: 7.5 Tube secured depth (cm): 21 Tube secured location: teeth Tube placement confirmation: visualized tube passing through cords, equal breath sounds bilaterally, no breath sounds over epigastrium and confirmation by capnometry Patient tolerated procedure: well Intubation complications: none Additional comments: Patient was preoxygenated and blood pressure was optimized prior to induction. Etomidate and rocuronium were given for RSI. 7.5 ET tube was placed easy, quickly, and atraumatically on 1st attempt using the glide scope. Tube was visualized passing through the vocal cords and was secured 21 cm at the lip. Tube placement was confirmed by capnography, mist in the ET tube, auscultation of lung sounds bilaterally, and absence of breath sounds over the stomach. Vital signs remained stable throughout. Vent settings and sedation orders per vocational services specialist. Chest x-ray pending at the time of this dictation.
--- NOTE | 2024-01-17 23:18 | PC.NURSE ---
RN found patient to have increased work of breathing, tachycardia, and hypotension. Laurel Gomez made aware and notified Dr. Olsen. Decision made to intubate patient. Laurel discussed at length with patient and . Prior to intubation, Neosynephrine maxed to 160 per Laurel's orders to increase blood pressure. Patient intubated at 2245 with 20mg of Etomidate and 50mg of Rocuronium. 2mg of Versed given IVP per Laurel post intubation for sedation. ETT 7.5 21 at the lip.
[2024-01-17 23:50] LABS: Alveolar/Arterial O2 Gradient 246.9 mmHg; Base Excess ABG -10.7 mEq/l (+/-2.0); Carboxyhemoglobin 0.3 % THb (0-2.0); Fractional Inspired Oxygen 90 %; HCO3 ABG 15.5 mEq/l (22.0-26.0); Methemoglobin ABG 0.1 %THb (0-1.5); Oxygen Content ABG 18.1 %vol (16.0-22.0); Oxygen Saturation ABG 99.7 % (95.0-100.0); Oxyhemoglobin 99.4 % THb (90.0-100.0); PCO2 ABG 35.5 mmHg (35.0-45.0); PO2 ABG 358.4 mmHg (80.0-100.0); PO2 FiO2 Ratio Arterial Blood 3.98 %; Reduced Hemoglobin 0.2 %THb (0-5.0); Total Hemoglobin 12.3 g/dL (12.0-18.0)
[2024-01-17 23:51] LABS: pH ABG 7.258 (7.350-7.450)
[2024-01-17 23:52] LABS: Arterial Blood Gas Vent Mode CMV; Arterial Blood Gas Ventilator rate 22 /MIN; Device VENTILATOR; Modified Allen's Test Pass; Site Drawn ARTLINE
[2024-01-17 23:53] LABS: Arterial Blood Gas PEEP 5 cmH2O; Arterial Blood Gas Tidal Volume 350 ml
[2024-01-18] VITALS (97 sets, daily range): BP systolic 92–143; BP diastolic 29–79; PULSE 90–115; RESP 22–32; TEMP 37.4–38.2; O2SAT 91–100; BMI 45.1
--- NOTE | 2024-01-18 | ECHO_ITS ---
Patient Info Name: Ju Driscoll Age: 78 years : 1945 Gender: Female Ht: 61 in Wt: 238 lbs BSA: 2.22 m2 HR: 99 bpm BP: 129 / 74 mmHg Heart Rhythm: Indeterminant Technical Quality: Fair Exam Date: 01/18/2024 9:12 AM Exam Location: Echo Lab Patient Status: Inpatient Admit Date: 01/17/2024 Staff Ordering Physician: Leonides Oslen MD Staff Occupational Therapist: Franko Eli RDCS Attending Provider: Musa Bowen MD Referring Physician: Raúl DELACRUZ; Exam Type: CA echo dop color flow w con Study Info Indications - SEPTIC SHOCK Complete two-dimensional, color flow and Doppler transthoracic echocardiogram is performed with contrast to opacify the left ventricle and to improve the deliniation of the left ventricle endocardial borders. Summary 1. 'D-shaped' septum in both systole and diastole consistent with RV pressure and volume overload. 2. Left ventricular chamber dimension is mildly enlarged. 3. Left ventricular systolic function is mildly reduced, estimated at 45-50%. 4. There is mildly increased left ventricular wall thickness. 5. The left ventricular diastolic function is abnormal. 6. Right ventricular chamber dimension is moderately enlarged. 7. Right ventricular systolic function is reduced. 8. Left atrial chamber dimension is moderately enlarged. 9. Right atrial chamber dimension is mildly enlarged. 10. There is mild mitral valve regurgitation. 11. There is moderate tricuspid valve regurgitation. 12. Moderate pulmonary hypertension, estimated pulmonary arterial systolic pressure is 52 mmHg. 13. There is small pericardial effusion. Left Ventricle 'D-shaped' septum in both systole and diastole consistent with RV pressure and volume overload. Left ventricular chamber dimension is mildly enlarged. Left ventricular systolic function is mildly reduced, estimated at 45-50%. There is mildly increased left ventricular wall thickness. The left ventricular diastolic function is abnormal. Right Ventricle Right ventricular chamber dimension is moderately enlarged. Right ventricular systolic function is reduced. Left Atria Left atrial chamber dimension is moderately enlarged. Right Atria Right atrial chamber dimension is mildly enlarged. Aortic Valve The aortic valve is trileaflet. There is mild aortic valve sclerosis. There is no aortic valve stenosis. There is trace aortic valve regurgitation. Pulmonic Valve The pulmonic valve is normal. There is no pulmonic valve stenosis. There is trace pulmonic regurgitation. Mitral Valve The mitral valve has calcified annulus. There is no mitral valve stenosis. There is mild mitral valve regurgitation. Tricuspid Valve The tricuspid valve leaflets are normal. There is no significant tricuspid valve stenosis. There is moderate tricuspid valve regurgitation. Moderate pulmonary hypertension, estimated pulmonary arterial systolic pressure is 52 mmHg. Pericardium/Pleural The pericardium appears normal. There is small pericardial effusion. Inferior Vena Cava Dilated inferior vena cava with <50% collapse upon inspiration consistent with elevated right atrial pressure, 15 mmHg. Aorta The aortic root size at the sinus of Valsalva is normal. Left Ventricular Outflow Tract Name Value Normal LVOT 2D LVOT Diameter 1.98 cm LVOT Doppler LVOT Peak Velocity 78.64 cm/s LVOT Peak Gradient 2 mmHg LVOT Mean Gradient 1 mmHg LVOT VTI 18.42 cm LVOT VTI/AV VTI Ratio 0.90 LVOT Stroke Volume 56.78 ml LVOT CO 5.17 l/min LVOT CI 2.33 L/min/m2 Pulmonic Valve Name Value Normal PV Doppler PV Peak Velocity 64.20 cm/s PV Peak Gradient 2 mmHg Mitral Valve Name Value Normal MV Doppler MV Decel [place] 406.05 cm/s2 MV PHT 0 s MV Area (PHT) 5.31 cm2 4.00-5.00 MV Regurgitation Doppler MR Peak Gradient 16 mmHg MV Diastolic Function MV E Peak Velocity 58.04 cm/s MV A Peak Velocity 96.87 cm/s MV E/A 0.60 MV Decel Time 0 s MV Annular TDI MV Septal e' Velocity 2.48 cm/s >=8.00 MV E/e' (Septal) 23.39 <=8.00 MV Lateral e' Velocity 7.04 cm/s >=10.00 MV E/e' (Lateral) 8.25 <=8.00 MV e' Average 4.76 MV E/e' (Average) 15.82 Tricuspid Valve Name Value Normal TV Regurgitation Doppler TR Peak Velocity 304.60 cm/s TR Peak Gradient 34 mmHg Estimated PAP/RSVP RA Pressure 15 mmHg <=5 PA Systolic Pressure 52 mmHg <36 RV Systolic Pressure 52 mmHg <36 TV Annular TDI TV Lateral Ana María s' Velocity 11.87 cm/s 9.50-18.70 Aortic Valve Name Value Normal AV Doppler AV Peak Velocity 117.86 cm/s AV Peak Gradient 6 mmHg AV Mean Gradient 3 mmHg AV VTI 20.39 cm AV Area (Cont Eq VTI) 2.79 cm2 >=3.00 AV Area (Cont Eq Jose) 2.06 cm2 AV V1/V2 Ratio 0.67 AV Regurgitation 2D LVOT Area 3.08 cm2 Ventricles Name Value Normal LV Dimensions 2D/MM IVS Diastolic Thickness (2D) 1.17 cm 0.60-1.00 LVID Diastole (2D) 4.91 cm 3.80-5.20 LVIW Diastolic Thickness (2D) 1.17 cm 0.60-0.90 LVID Systole (2D) 3.13 cm 2.20-3.50 LVOT Diameter 1.98 cm LV Mass (2D Cubed) 219.63 g 67.00-162.00 LV Mass Index (2D Cubed) 0.01 g/cm2 0.00-0.01 Relative Wall Thickness (2D) 0.48 LV Fractional Shortening/Ejection Fraction 2D/MM LV Fractional Shortening (2D) 36 % 27-45 LV EF (2D Teicholz) 66 % 54-74 LV Diastolic Volume (4C MOD) 124.87 ml LV EF (4C MOD) 65 % LV Diastolic Volume (2C MOD) 93.25 ml LV EF (2C MOD) 49 % LV Diastolic Volume (BP MOD) 114.02 ml 46.00-106.00 LV Diastolic Volume Index (BP MOD) 0.05 l/m2 0.03-0.06 LV Systolic Volume (BP MOD) 48.11 ml 14.00-42.00 LV Systolic Volume Index (BP MOD) 0.02 l/m2 0.01-0.02 LV EF (BP MOD) 58 % 54-74 LV Diastolic Length (4C) 8.18 cm LV Systolic Length (4C) 6.27 cm LV Stroke Volume (4C MOD) 80.82 ml Atria Name Value Normal LA Dimensions LA Volume (4C A-L) 36.06 ml RA Dimensions RA Area (4C) 11.32 cm2 <=18.00 Report Signatures
[2024-01-18] MEDS: METOCLOPRAMIDE HCL INJ 10 MG/2 ML VIAL IV PUSH (00:07)
[2024-01-18] MEDS: ALBUMIN HUMAN 25% 25 GM/100 ML 100 ML IVPB ×6 (00:08→20:50)
[2024-01-18] MEDS: NOREPINEPHRINE 8 MG/D5W 250 ML 8 MG/250 ML BAG 52.5 MG IV CONT (00:41)
[2024-01-18] MEDS: EPINEPHrine INJ 1 MG in DEXTROSE 5% IN WATER 250 ML 15.06 MG IV CONT (03:00)
[2024-01-18] MEDS: PHENYLEPHRINE HCL INJ 50 MG in DEXTROSE 5% IN WATER 250 ML/245 ML BAG 54 ML IV CONT ×3 (03:15→12:46)
[2024-01-18] MEDS: SODIUM BICARBONATE 8.4% 50 MEQ/50 ML SYRINGE 100 MEQ IV PUSH ×2 (03:32→09:37)
[2024-01-18 03:38] LABS: Hematocrit 30.6 % (37.0-47.0); Hemoglobin 10.2 g/dL (12.0-15.0); Immature Platelet Fraction Pct 9.6 % (0.9-11.2); Mean Corpuscular HGB Conc 33.3 g/dl (32-36); Mean Platelet Volume 11.1 fl (7.4-10.4); Platelet Count Result 71 k/mm3 (150-375); Red Blood Count 3.09 M/mm3 (4.2-5.4); White Blood Count 39.4 K/mm3 (4.5-10.0)
[2024-01-18 03:53] LABS: Alveolar/Arterial O2 Gradient 231.7 mmHg; Base Excess ABG -11.4 mEq/l (+/-2.0); Carboxyhemoglobin 0.3 % THb (0-2.0); Fractional Inspired Oxygen 65 %; HCO3 ABG 15.6 mEq/l (22.0-26.0); Oxygen Content ABG 16.1 %vol (16.0-22.0); Oxygen Saturation ABG 99.1 % (95.0-100.0); Oxyhemoglobin 98.9 % THb (90.0-100.0); PO2 ABG 189.3 mmHg (80.0-100.0); PO2 FiO2 Ratio Arterial Blood 2.91 %; Reduced Hemoglobin 0.8 %THb (0-5.0); Total Hemoglobin 11.3 g/dL (12.0-18.0)
[2024-01-18 03:54] LABS: Device VENTILATOR; Site Drawn ARTLINE; pH ABG 7.219 (7.350-7.450)
[2024-01-18 03:55] LABS: Arterial Blood Gas PEEP 8 cmH2O; Arterial Blood Gas Tidal Volume 350 ml; Arterial Blood Gas Vent Mode CMV; Arterial Blood Gas Ventilator rate 24 /MIN
[2024-01-18 04:00] LABS: Lactic Acid Reflex 11.6 mmol/L (0.7-2.0)
[2024-01-18 04:01] LABS: Alanine Aminotransferase 25 U/L (6-35); Albumin Level 2.8 g/dL (3.5-5.1); Alkaline Phosphatase 83 U/L (38-126); Anion Gap 22 mmol/L (4-12); Aspartate Amino Transferase 48 U/L (14-36); Bilirubin,Total 1.3 mg/dL (0.2-1.3); Blood Urea Nitrogen 36 mg/dL (7-17); Carbon Dioxide 27 mmol/L (22-30); Chloride 94 mmol/L (98-107); Estimated CRCL calculation 14 ml/min; Estimated Glomerular Filt Rate 13; Glucose 158 mg/dL (65-110); Magnesium 1.7 mg/dL (1.6-2.3); Potassium 4.4 mmol/L (3.4-5.0); Sodium 143 mmol/L (137-145)
[2024-01-18 04:04] LABS: Band Neutrophils Percent 7 % (0-6); Total Cells Counted 100
[2024-01-18 04:05] LABS: Lymphocytes Absolute Manual 2.36 K/mm3 (1.1-4.5); Lymphocytes Percent Manual 6 % (18-44); Monocytes Absolute Manual 1.97 K/mm3 (0.1-0.90); Monocytes Percent Manual 5 % (3-9); Neutrophils Absolute Manual 35.06 K/mm3 (1.7-7.2); Neutrophils Percent Manual 82 % (46-73)
[2024-01-18 04:06] LABS: Platelet Estimate Decreased (Adequate)
[2024-01-18 04:07] LABS: Schistocytes None Seen
--- NOTE | 2024-01-18 04:07 | PC.NURSE ---
Siddharth and daughter Huma updated on patient status and decompensation. Family coming to hospital to be at the bedside with patient.
[2024-01-18] MEDS: LACTATED RINGERS 1,000 ML 999 ML IV CONT (04:19)
[2024-01-18] MEDS: CALCIUM GLUCONATE 1,000 MG/10 ML VIAL 1000 MG IV PUSH ×2 (04:30→05:15)
--- NOTE | 2024-01-18 05:07 | P.PNCROSS_ITS ---
Event Note Event Note Event Note: Nursing staff update me that the patient's family is coming in to see the patie nt because she had been placed on a 4th pressor. The patient was having significant amount of ectopy and was having persistent hypotension despite being maxed out on Levophed Claudio-Synephrine and vasopressin. Patient is already on a bicarb drip. Patient's lactic acid had climbed to 11.6 even with these other measures. Patient was on ventilator settings tidal volume 350 rate of 24 and peep of 8. Patient's ABG demonstrated pH of 7.21 and pCO2 of 39 with PO2 of 185. The patient's calcium was low at 6. Shortly before the lab draw I had given her order for 2 amps of sodium bicarb push. IV came to bedside and gave order for 1 amp of calcium gluconate. Given that the patient had normal PO2 I did drop PEEP on the patient's vent settings to help decrease in her thoracic pressure and hopefully increase cardiac return. As I increase the patient's rate to 24 to help blow off some acidosis. With her current settings and the addition of epinephrine the patient blood pressures have improved somewhat. At the time of this dictation patient's blood pressure is 108/65 and older lower pulse ox is difficult to obtain due to difficulties with perfusion the patient's pulse ox is reading between 92 and 100%. The patient's daughter Huma and Siddharth arrived at bedside and we had a discussion about the patient's clinical course. A in the likelihood of survive ability if the patient were to undergo CPR and cardiopulmonary resuscitation in her current condition was discussed with the family. Given that CPR in the setting would not change the ultimate outcome for the patient or bring her back for a functional or significant quality of life the patient's has agreed to make the patient a DNR. If the patient's heart were to stop. He understands that we will continue with our current efforts and that we were still providing care in the hope of improvement but that the patient's condition is extremely critical and she is extremely unstable. The patient called his son on the phone and I had this same discussion with the patient's son. All family members were in agreement. The patient's son plans to board a flight at 08:30 in [place] to come and be with his mother in this time of need. 50 minutes minutes was spent in critical care activities Due to a high probability of clinically significant, life threatening deterioration, the patient required my highest level of preparedness to intervene emergently and I personally spent this critical care time directly and personally managing the patient. This critical care time included obtaining a history; examining the patient; pulse oximetry; ordering and review of studies; arranging urgent treatment with development of a management plan; evaluation of patient's response to treatment; frequent reassessment; and discussions with other providers. It was exclusive of separately billable procedures and treating other patients and teaching time. Please see Assessment and Plan section and the rest of the note for further information on patient assessment and treatment.
[2024-01-18] MEDS: NOREPINEPHRINE 8 MG/D5W 250 ML 8 MG/250 ML BAG 56.25 MG IV CONT ×4 (05:13→19:15)
[2024-01-18] MEDS: AZTREONAM 1 GM in SODIUM CHLORIDE 0.9% IV 50 ML 100 ML IVPB ×3 (05:18→21:03)
[2024-01-18] MEDS: HYDROCORTISONE SODIUM SUCCINATE 100 MG/2 ML VIAL IV PUSH ×3 (05:18→21:03)
[2024-01-18] MEDS: CENTRAL LINE FLUSH 10 ML IV PUSH ×3 (05:18→20:56)
[2024-01-18] MEDS: SODIUM BICARBONATE 8.4% 150 MEQ in WATER, STERILE FOR INJECTION 950 ML 100 MEQ IV CONT ×2 (05:30→15:56)
[2024-01-18] MEDS: EPINEPHrine INJ 1 MG in DEXTROSE 5% IN WATER 250 ML 75.3 MG IV CONT ×2 (06:18→09:44)
[2024-01-18] MEDS: PANTOPRAZOLE 40 MG TABLET PO (07:51)
[2024-01-18] MEDS: FAMOTIDINE 20 MG/2 ML VIAL IV PUSH ×2 (07:51→20:52)
[2024-01-18] MEDS: TAMOXIFEN CITRATE (*CHEMO) 10 MG TABLET 20 MG PO (07:54)
[2024-01-18] MEDS: MINERAL OIL/WHITE PETROLATUM OINTMENT 1 APPLIC EACH EYE ×2 (07:54→20:56)
[2024-01-18] MEDS: DULoxetine HCL 60 MG CAPSULE.DR 120 MG PO (07:54)
--- NOTE | 2024-01-18 08:03 | WPDUROPN2 ---
Progress Note: A&P Assessment and Plan (1) Septic shock: Code(s): A41.9 - Sepsis, unspecified organism; R65.21 - Severe sepsis with septic shock Status: Acute Assessment and Plan: Management per ICU team. Appears to be extremely poor prognosis at this point time as she has deteriorated. (2) Urinary tract infection: Code(s): N39.0 - Urinary tract infection, site not specified Status: Acute Assessment and Plan: As per above cultures pending (3) Kidney stone: Code(s): N20.0 - Calculus of kidney Status: Acute Assessment and Plan: Status post stent placement. No other active intervention during this hospitalization. Subjective Subjective Date/Time Seen: 01/18/24 08:03 Post Op day: 1 (Cystoscopy with right retrograde and right stent placement) Principal diagnosis: Right UPJ calculus with sepsis Interval history: Unfortunately patient has deteriorated further. White count is increased to 39,000 with a creatinine of 3.4 lactic acid of 11. She is currently intubated on 4 pressors. Follow-up ultrasound revealed no residual hydronephrosis. Objective Data Vital Signs Vital Signs: Vital Signs - 24 hr 01/17/24 08:47 01/17/24 09:15 01/17/24 09:31 Temperature 37.1 C Pulse Rate 108 H 106 H 102 H Respiratory Rate 32 H 23 H 20 Blood Pressure 110/57 L 85/47 L Pulse Oximetry 95 94 95 Oxygen Delivery Room Air Oxygen Flow Rate Fraction of Inspired Oxygen 01/17/24 09:51 01/17/24 10:36 01/17/24 11:01 Temperature 36.4 C Pulse Rate 99 102 H 97 Respiratory Rate 20 20 20 Blood Pressure 87/45 L 126/105 H 91/46 L Pulse Oximetry 93 95 Oxygen Delivery Oxygen Flow Rate Fraction of Inspired Oxygen 01/17/24 12:06 01/17/24 13:02 01/17/24 13:19 Temperature Pulse Rate 95 99 103 H Respiratory Rate 25 H 31 H Blood Pressure 75/49 L 76/46 L 78/41 L Pulse Oximetry 94 90 Oxygen Delivery Oxygen Flow Rate Fraction of Inspired Oxygen 01/17/24 13:20 01/17/24 13:26 01/17/24 15:36 Temperature Pulse Rate 104 H 105 H 98 Respiratory Rate 32 H Blood Pressure 94/58 L 82/55 L Pulse Oximetry 100 Oxygen Delivery Oxygen Flow Rate Fraction of Inspired Oxygen 01/17/24 15:37 01/17/24 16:58 01/17/24 17:51 Temperature 39.5 C H 38.7 C H Pulse Rate 99 Respiratory Rate Blood Pressure 82/55 L Pulse Oximetry Oxygen Delivery Oxygen Flow Rate Fraction of Inspired Oxygen 01/17/24 15:55 01/17/24 16:00 01/17/24 16:00 Temperature 38.3 C H Pulse Rate 111 H 111 H Respiratory Rate 37 H Blood Pressure 128/75 Pulse Oximetry 97 100 Oxygen Delivery High Flow Nasal Cannula Oxygen Flow Rate 15 Fraction of Inspired Oxygen 01/17/24 16:00 01/17/24 18:00 01/17/24 18:00 Temperature 38.6 C H Pulse Rate 111 H 103 H 103 H Respiratory Rate 37 H 31 H Blood Pressure 83/52 L Pulse Oximetry 100 100 Oxygen Delivery High Flow Nasal Cannula Oxygen Flow Rate 15 Fraction of Inspired Oxygen 01/17/24 18:25 01/17/24 17:30 01/17/24 15:45 Temperature Pulse Rate 103 H 103 H 102 H Respiratory Rate Blood Pressure 88/53 L 99/62 L Pulse Oximetry 99 Oxygen Delivery High Flow Therapy with Na Oxygen Flow Rate 45 Fraction of Inspired Oxygen 100 01/17/24 16:00 01/17/24 16:15 01/17/24 16:30 Temperature Pulse Rate 111 H 108 H 106 H Respiratory Rate Blood Pressure 128/75 120/65 104/59 L Pulse Oximetry Oxygen Delivery Oxygen Flow Rate Fraction of Inspired Oxygen 01/17/24 16:45 01/17/24 17:00 01/17/24 17:15 Temperature Pulse Rate 104 H 103 H 106 H Respiratory Rate Blood Pressure 89/53 L 89/52 L 91/54 L Pulse Oximetry Oxygen Delivery Oxygen Flow Rate Fraction of Inspired Oxygen 01/17/24 17:45 01/17/24 18:10 01/17/24 18:40 Temperature Pulse Rate 113 H 101 H 97 Respiratory Rate Blood Pressure 90/55 L 93/56 L 101/57 L Pulse Oximetry Oxygen Delivery Oxygen Flow Rate Fraction of Inspired Oxygen 01/17/24 19:30 01/17/24 19:59 01/17/24 19:45 Temperature Pulse Rate 106 H Respiratory Rate Blood Pressure 98/60 L Pulse Oximetry 100 100 Oxygen Delivery High Flow Therapy with Na High Flow Therapy with Na Oxygen Flow Rate 45 45 Fraction of Inspired Oxygen 100 70 01/17/24 19:45 01/17/24 19:45 01/17/24 20:21 Temperature Pulse Rate 106 H 106 H 108 H Respiratory Rate Blood Pressure 98/60 L 98/60 L 103/60 Pulse Oximetry Oxygen Delivery Oxygen Flow Rate Fraction of Inspired Oxygen 01/17/24 20:00 01/17/24 20:00 01/17/24 20:00 Temperature 37.7 C H Pulse Rate 105 H 106 H Respiratory Rate 24 H Blood Pressure 103/61 100/60 Pulse Oximetry 100 100 Oxygen Delivery High Flow Nasal Cannula Oxygen Flow Rate 45 Fraction of Inspired Oxygen 100 01/17/24 20:15 01/17/24 20:30 01/17/24 20:45 Temperature 37.7 C H 37.6 C H 37.6 C H Pulse Rate 106 H 107 H 106 H Respiratory Rate 26 H 24 H 26 H Blood Pressure 97/55 L 98/58 L 97/59 L Pulse Oximetry 100 100 100 Oxygen Delivery Oxygen Flow Rate Fraction of Inspired Oxygen 01/17/24 21:00 01/17/24 21:15 01/17/24 22:00 Temperature 37.6 C H 37.6 C H Pulse Rate 106 H 105 H 106 H Respiratory Rate 27 H 28 H Blood Pressure 95/56 L 92/57 L 95/56 L Pulse Oximetry 98 92 Oxygen Delivery Oxygen Flow Rate Fraction of Inspired Oxygen 01/17/24 22:15 01/17/24 22:00 01/17/24 22:19 Temperature 37.6 C H Pulse Rate 133 H 106 H 105 H Respiratory Rate 34 H Blood Pressure 87/62 L 95/56 L 100/59 L Pulse Oximetry 92 Oxygen Delivery Oxygen Flow Rate Fraction of Inspired Oxygen 01/17/24 22:20 01/17/24 22:50 01/17/24 22:50 Temperature Pulse Rate 120 H 104 H 103 H Respiratory Rate 22 H 22 H Blood Pressure 92/64 L Pulse Oximetry Oxygen Delivery Oxygen Flow Rate Fraction of Inspired Oxygen 01/17/24 23:00 01/17/24 21:30 01/17/24 22:00 Temperature 37.6 C H 37.6 C H Pulse Rate 105 H 106 H 106 H Respiratory Rate 22 H 29 H 32 H Blood Pressure 95/55 L 95/56 L Pulse Oximetry 98 98 Oxygen Delivery Oxygen Flow Rate Fraction of Inspired Oxygen 01/17/24 22:32 01/17/24 20:00 01/17/24 22:00 Temperature Pulse Rate 101 H 106 H 106 H Respiratory Rate Blood Pressure Pulse Oximetry 100 Oxygen Delivery Mechanical Ventilation Oxygen Flow Rate Fraction of Inspired Oxygen 100 01/17/24 23:44 01/17/24 22:16 01/17/24 22:30 Temperature 37.6 C H 37.6 C Pulse Rate 107 H 96 105 H Respiratory Rate 35 H 26 H Blood Pressure 114/63 91/64 L 101/60 Pulse Oximetry 93 95 Oxygen Delivery Oxygen Flow Rate Fraction of Inspired Oxygen 01/17/24 22:45 01/17/24 23:00 01/17/24 23:15 Temperature 37.6 C 37.5 C 37.5 C Pulse Rate 106 H 108 H 102 H Respiratory Rate 18 22 H 22 H Blood Pressure 109/66 110/61 113/64 Pulse Oximetry 100 100 100 Oxygen Delivery Oxygen Flow Rate Fraction of Inspired Oxygen 01/17/24 23:30 01/17/24 23:45 01/18/24 00:13 Temperature 37.4 C 37.4 C Pulse Rate 108 H 108 H 107 H Respiratory Rate 22 H 22 H Blood Pressure 109/61 109/62 106/62 Pulse Oximetry 100 100 Oxygen Delivery Oxygen Flow Rate Fraction of Inspired Oxygen 01/18/24 00:16 01/18/24 00:00 01/17/24 23:00 Temperature Pulse Rate 107 H 107 H 101 H Respiratory Rate 24 H Blood Pressure 108/63 110/60 Pulse Oximetry Oxygen Delivery Oxygen Flow Rate Fraction of Inspired Oxygen 01/18/24 00:00 01/18/24 00:00 01/18/24 00:00 Temperature Pulse Rate 107 H 107 H 107 H Respiratory Rate 22 H Blood Pressure 108/63 108/63 Pulse Oximetry Oxygen Delivery Oxygen Flow Rate Fraction of Inspired Oxygen 01/18/24 00:00 01/18/24 00:23 01/18/24 00:37 Temperature Pulse Rate 107 H 98 107 H Respiratory Rate 22 H 26 H Blood Pressure Pulse Oximetry 100 Oxygen Delivery Mechanical Ventilation Oxygen Flow Rate Fraction of Inspired Oxygen 65 01/18/24 00:40 01/18/24 00:41 01/18/24 00:44 Temperature Pulse Rate 108 H 108 H 108 H Respiratory Rate 26 H Blood Pressure 104/62 105/63 Pulse Oximetry Oxygen Delivery Oxygen Flow Rate Fraction of Inspired Oxygen 01/18/24 00:00 01/18/24 00:00 01/18/24 01:00 Temperature 37.4 C 37.4 C Pulse Rate 106 H 106 H 106 H Respiratory Rate 24 H 24 H 24 H Blood Pressure 110/64 105/61 Pulse Oximetry 100 100 99 Oxygen Delivery Mechanical Ventilation Oxygen Flow Rate Fraction of Inspired Oxygen 65 01/17/24 22:00 01/18/24 00:00 01/18/24 00:00 Temperature Pulse Rate 106 H Respiratory Rate Blood Pressure Pulse Oximetry 100 Oxygen Delivery High Flow Nasal Cannula Oxygen Flow Rate 45 Fraction of Inspired Oxygen 100 65 01/18/24 02:00 01/18/24 02:00 01/18/24 02:00 Temperature Pulse Rate 100 100 100 Respiratory Rate 24 H Blood Pressure 95/60 L 95/60 L Pulse Oximetry Oxygen Delivery Oxygen Flow Rate Fraction of Inspired Oxygen 01/18/24 02:00 01/18/24 02:00 01/18/24 02:00 Temperature Pulse Rate 100 100 100 Respiratory Rate 24 H Blood Pressure 95/60 L Pulse Oximetry Oxygen Delivery Oxygen Flow Rate Fraction of Inspired Oxygen 01/18/24 02:00 01/18/24 02:11 01/18/24 02:14 Temperature 37.6 C H Pulse Rate 100 102 H 100 Respiratory Rate 24 H 24 H Blood Pressure 95/60 L 95/59 L Pulse Oximetry 99 Oxygen Delivery Oxygen Flow Rate Fraction of Inspired Oxygen 01/18/24 02:15 01/18/24 02:17 01/18/24 02:25 Temperature 37.6 C H Pulse Rate 99 99 98 Respiratory Rate 24 H 24 H Blood Pressure 95/60 L 92/58 L Pulse Oximetry 100 Oxygen Delivery Oxygen Flow Rate Fraction of Inspired Oxygen 01/18/24 02:32 01/18/24 02:30 01/18/24 02:49 Temperature 37.6 C H Pulse Rate 99 98 101 H Respiratory Rate 24 H 24 H 24 H Blood Pressure 99/66 L Pulse Oximetry 98 Oxygen Delivery Oxygen Flow Rate Fraction of Inspired Oxygen 01/18/24 03:00 01/18/24 02:45 01/18/24 03:00 Temperature 37.6 C H 37.7 C H Pulse Rate 104 H 100 104 H Respiratory Rate 24 H 27 H Blood Pressure 98/63 L 97/64 L 98/63 L Pulse Oximetry 99 99 Oxygen Delivery Oxygen Flow Rate Fraction of Inspired Oxygen 01/18/24 03:03 01/18/24 03:05 01/18/24 03:14 Temperature Pulse Rate 106 H 104 H 106 H Respiratory Rate 30 H Blood Pressure 98/64 L 104/66 Pulse Oximetry Oxygen Delivery Oxygen Flow Rate Fraction of Inspired Oxygen 01/18/24 03:15 01/18/24 03:23 01/18/24 03:28 Temperature Pulse Rate 109 H 104 H 101 H Respiratory Rate Blood Pressure 102/64 96/65 L 115/72 Pulse Oximetry Oxygen Delivery Oxygen Flow Rate Fraction of Inspired Oxygen 01/18/24 03:34 01/18/24 03:15 01/18/24 03:30 Temperature 37.7 C H 37.7 C H Pulse Rate 98 108 H 101 H Respiratory Rate 30 H 28 H Blood Pressure 96/63 L 104/64 115/71 Pulse Oximetry 98 98 Oxygen Delivery Oxygen Flow Rate Fraction of Inspired Oxygen 01/18/24 03:39 01/18/24 03:50 01/18/24 04:00 Temperature Pulse Rate 109 H 111 H 114 H Respiratory Rate Blood Pressure 96/64 L 99/66 L 103/67 Pulse Oximetry Oxygen Delivery Oxygen Flow Rate Fraction of Inspired Oxygen 01/18/24 04:00 01/18/24 04:00 01/18/24 04:00 Temperature Pulse Rate 114 H 113 H 113 H Respiratory Rate Blood Pressure 102/66 103/67 102/67 Pulse Oximetry Oxygen Delivery Oxygen Flow Rate Fraction of Inspired Oxygen 01/18/24 04:00 01/18/24 04:00 01/18/24 04:00 Temperature Pulse Rate 114 H 114 H 113 H Respiratory Rate 24 H 24 H 29 H Blood Pressure Pulse Oximetry 99 Oxygen Delivery Mechanical Ventilation Oxygen Flow Rate Fraction of Inspired Oxygen 50 01/18/24 04:00 01/18/24 04:00 01/18/24 05:13 Temperature 37.7 C H Pulse Rate 113 H 109 H Respiratory Rate 29 H Blood Pressure 102/67 107/67 Pulse Oximetry 99 Oxygen Delivery Oxygen Flow Rate Fraction of Inspired Oxygen 50 01/18/24 05:13 01/18/24 04:15 01/18/24 04:30 Temperature 37.7 C H 37.7 C H Pulse Rate 109 H 115 H 113 H Respiratory Rate 28 H 29 H Blood Pressure 106/67 99/64 L 103/66 Pulse Oximetry 97 97 Oxygen Delivery Oxygen Flow Rate Fraction of Inspired Oxygen 01/18/24 04:45 01/18/24 05:00 01/18/24 03:00 Temperature 37.7 C H 37.6 C H Pulse Rate 112 H 109 H 109 H Respiratory Rate 29 H 29 H Blood Pressure 103/66 106/66 Pulse Oximetry 93 96 98 Oxygen Delivery Mechanical Ventilation Oxygen Flow Rate Fraction of Inspired Oxygen 50 01/18/24 05:00 01/18/24 06:00 01/18/24 06:00 Temperature Pulse Rate 109 H 109 H 109 H Respiratory Rate Blood Pressure 109/66 109/66 Pulse Oximetry 98 Oxygen Delivery Mechanical Ventilation Oxygen Flow Rate Fraction of Inspired Oxygen 50 01/18/24 06:00 01/18/24 06:00 01/18/24 06:00 Temperature Pulse Rate 109 H 109 H 109 H Respiratory Rate 28 H Blood Pressure 109/66 109/66 Pulse Oximetry Oxygen Delivery Oxygen Flow Rate Fraction of Inspired Oxygen 01/18/24 06:00 01/18/24 05:15 01/18/24 05:30 Temperature 37.5 C 37.4 C Pulse Rate 109 H 110 H 107 H Respiratory Rate 28 H 28 H 28 H Blood Pressure 106/67 112/68 Pulse Oximetry 97 97 Oxygen Delivery Oxygen Flow Rate Fraction of Inspired Oxygen 01/18/24 05:45 01/18/24 06:00 01/18/24 06:18 Temperature 37.4 C 37.4 C Pulse Rate 109 H 109 H 104 H Respiratory Rate 28 H 28 H Blood Pressure 109/66 109/66 108/65 Pulse Oximetry 97 97 Oxygen Delivery Oxygen Flow Rate Fraction of Inspired Oxygen 01/18/24 06:18 01/18/24 04:00 01/18/24 06:00 Temperature Pulse Rate 111 H 113 H 110 H Respiratory Rate Blood Pressure 108/63 Pulse Oximetry Oxygen Delivery Oxygen Flow Rate Fraction of Inspired Oxygen 01/18/24 07:35 Temperature Pulse Rate 107 H Respiratory Rate Blood Pressure Pulse Oximetry 96 Oxygen Delivery Mechanical Ventilation Oxygen Flow Rate Fraction of Inspired Oxygen 70 Intake/Output Intake/Output: Intake & Output 01/15/24 01/16/24 01/17/24 01/18/24 23:59 23:59 23:59 23:59 Intake Total 4514.6 2214.9 Output Total 140 100 Balance 4374.6 2114.9 Meds/Results Medications: Active Medications Generic Name Dose Route Start Last Admin Trade Name Freq PRN Reason Stop Dose Admin Acetaminophen 650 mg 01/17/24 16:33 01/17/24 16:58 Acetaminophen 650 Mg Suppository RECTAL 650 mg Q6H PRN Administration Mild Pain (1-3) or Fever Atorvastatin Calcium 10 mg 01/18/24 09:00 Atorvastatin 10 Mg Tablet PO DAILY [facility] Duloxetine HCl 120 mg 01/18/24 09:00 Duloxetine Hcl 60 Mg Capsule.Dr PO DAILY TANNA Empagliflozin 10 mg 01/18/24 09:00 Empagliflozin 10 Mg Tablet PO DAILY [facility] Enoxaparin Sodium 30 mg 01/18/24 09:00 Enoxaparin 30 Mg/0.3 Ml Syringe SUB-Q DAILY TANNA Famotidine 20 mg 01/17/24 21:00 01/17/24 20:07 Famotidine 20 Mg/2 Ml Vial IV PUSH 20 mg Q12HR TANNA Administration Hydrocortisone Sodium Succinate 100 mg 01/17/24 22:00 01/18/24 05:18 Hydrocortisone Sodium Succinate 100 Mg/2 Ml Vial IV PUSH 100 mg Q8HR TANNA Administration Norepinephrine Bitartrate 8 mg in 250 mls @ 56.25 mls/hr 01/17/24 13:00 01/18/24 06:00 Levophed 8 Mg/D5w 250 Ml IV CONT 30 mcg/min .Q4H27M TANNA 56.25 mls/hr Titration Protocol 30 MCG/MIN Aztreonam 1 gm/ Sodium 50 mls @ 100 mls/hr 01/17/24 14:00 01/18/24 05:48 Chloride IVPB Infused Q8H TANNA Infusion Vasopressin 100 units/ 100 mls @ 2.4 mls/hr 01/17/24 15:15 01/18/24 06:00 Dextrose IV CONT 0.04 units/min .[id number] TANNA 2.4 mls/hr Titration Protocol 0.04 UNITS/MIN Albumin Human 100 mls @ 60 mls/hr 01/17/24 18:00 01/18/24 05:30 Albutein IVPB 01/18/24 13:39 60 mls/hr Q6HR TANNA Administration Sodium Bicarbonate 150 meq/ 1,100 mls @ 100 mls/hr 01/17/24 18:00 01/18/24 05:30 Sterile Water IV CONT 100 mls/hr .Q11H TANNA Administration Phenylephrine HCl 50 mg/ 250 ml in 250 mls @ 54 mls/hr 01/17/24 22:10 01/18/24 06:00 Dextrose IV CONT 180 mcg/min .Q4H38M TANNA 54 mls/hr Titration Protocol 180 MCG/MIN Fentanyl Citrate 2,500 mcg in 250 mls @ 2.5 mls/hr 01/17/24 22:35 01/18/24 06:00 Fentanyl 2,500 Mcg/Ns 250 Ml IV CONT 25 mcg/hr .Q72H TANNA 2.5 mls/hr Titration Protocol 25 MCG/HR Midazolam HCl 100 mg in 100 mls @ 1 mls/hr 01/17/24 22:35 01/18/24 06:00 Versed 100 Mg/Ns 100 Ml IV CONT 1 mg/hr .Q72H TANNA 1 mls/hr Titration Protocol 1 MG/HR Epinephrine HCl 1 mg/ Dextrose 251 mls @ 75.3 mls/hr 01/18/24 02:45 01/18/24 06:18 IV CONT 5 mcg/min .Q3H20M TANNA 75.3 mls/hr Administration Protocol 5 MCG/MIN Calcium Gluconate 2,000 mg in 100 mls @ 100 mls/hr 01/18/24 08:00 Calcium Gluc 2,000 Mg/Ns 100ml IVPB 01/18/24 08:59 ONCE ONE Multi-Ingred Cream/Lotion/Oil/Oint 1 applic 01/18/24 09:00 Mineral Oil/White Petrolatum Ointment EACH EYE Q12HR [facility] Nabumetone 750 mg 01/17/24 21:00 Nabumetone 750 Mg Tablet PO Q12HR [facility] Ondansetron HCl 4 mg 01/17/24 12:42 01/17/24 12:51 Ondansetron Inj 4 Mg/2 Ml Vial IV PUSH 4 mg Q4H PRN Administration Nausea Ondansetron HCl 4 mg 01/17/24 15:19 Ondansetron Hcl Odt 4 Mg Tablet PO Q6H PRN Nausea Oxycodone HCl 5 mg 01/17/24 15:19 Oxycodone Hcl (*Crx) 5 Mg Tab Ir PO Q6-8H PRN Pain (Scale Score 7-10) Pantoprazole Sodium 40 mg 01/18/24 09:00 Pantoprazole 40 Mg Tablet PO DAILY [facility] Perflutren Lipid Microsphere 0 ml 01/18/24 07:53 Perflutren Lipid Microspheres 1.5 Ml Vial Diluted To 10 Ml Total Volume IV PUSH 01/21/24 07:53 ONCE PRN adequate visualization Protocol Sodium Chloride 10 ml 01/17/24 22:00 01/18/24 05:18 Central Line Flush IV PUSH 10 ml Q8HR TANNA Administration Sodium Chloride 20 ml 01/17/24 16:51 Central Line Flush IV PUSH PRN PRN after blood draws Sumatriptan Succinate 50 mg 01/17/24 15:19 Sumatriptan Succinate 25 Mg Tablet PO Q8H PRN Headache Tamoxifen Citrate 20 mg 01/18/24 09:00 Tamoxifen Citrate (*Chemo) 10 Mg Tablet PO DAILY [facility]ANNA Vancomycin HCl 1 each 01/17/24 16:30 Vancomycin For Acute Kidney Injury IVPB PRN PRN Vancomycin Protocol Radiology Results: ITS Impressions Abdomen/Pelvis CT 01/17/24 10:23 IMPRESSION: 1. 11 mm stone at right ureteropelvic junction with mild right hydronephrosis. 2. 1 mm nonobstructing left kidney stone. 3. 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 Ureter Stent X-Ray 01/17/24 15:20 IMPRESSION: 1. Persistent stone at the right ureteropelvic junction with placement of a right internal ureteral stent in expected position. Is unclear the stone has been removed on the final image and would correlate with procedure note for further detail. Renal Ultrasound 01/17/24 19:03 IMPRESSION: 1. 7.2 cm left renal cyst. Otherwise normal kidneys with no hydronephrosis. Abdomen X-Ray 01/17/24 23:21 IMPRESSION: 1. Endotracheal tube and nasogastric tube in expected positions as detailed above. 2. Unchanged mild elevation of the right hemidiaphragm with streaky atelectasis versus less likely pneumonia at the bilateral lower lung zones. Chest X-Ray 01/18/24 06:22 IMPRESSION: 1. Mild atelectasis in the lower lung zones. Labs Labs: Laboratory Results - last 24 hr 01/17/24 01/17/24 01/17/24 09:08 10:36 14:41 WBC 13.5 H RBC 3.90 L Hgb 12.8 Hct 38.2 MCV 97.9 MCH 32.8 MCHC 33.5 RDW 13.5 Plt Count 135 L MPV 10.3 Immature Gran % (Auto) Not Reportable Neut % (Auto) Not Reportable Lymph % (Auto) Not Reportable [place] % (Auto) Not Reportable Eos % (Auto) Not Reportable Baso % (Auto) Not Reportable Lymph # (Auto) Not Reportable [place] # (Auto) Not Reportable Eos # (Auto) Not Reportable Baso # (Auto) Not Reportable Abs Immat Gran (auto) Not Reportable Absolute Neuts (auto) Not Reportable Absolute Nucleated RBC Not Reportable Total Counted 100 Neutrophils % (Manual) 88 H Band Neutrophils % 10 H Lymphocytes % (Manual) 2.0 L Monocytes % (Manual) Eosinophils % (Manual) Metamyelocytes % Nucleated RBC % Not Reportable Abs Neuts (Manual) 13.23 H Abs Lymphs (Manual) 0.27 L Abs Monocytes (Manual) Absolute Eos (Manual) Nucleated RBCs Platelet Estimate Slightly decreased % Immature Plt Fraction Schistocytes None seen PT INR APTT Puncture Site Artline ABG pH 7.261 L* ABG pCO2 39.0 ABG pO2 189.2 H ABG PO2/FiO2 Ratio 6.76 ABG HCO3 17.1 L ABG O2 Saturation 99.1 ABG O2 Content 16.9 ABG Base Excess -9.2 A-a Gradient < 0.0 Oxyhemoglobin 98.7 Carboxyhemoglobin Methemoglobin Reduced Hemoglobin Total Hemoglobin 11.9 L O2 Delivery Device Nasal cannula O2 Liters/Min 2.0 Minute Volume Vent Rate Vent Mode FiO2 28 Tidal Volume PEEP Peak Inspir Pressure Pressure Support Sodium 135 L Potassium 4.3 Chloride 105 Carbon Dioxide 13 L Anion Gap 17 H BUN 31 H Creatinine 2.90 H Estim Creat Clear Calc 17 Estimated GFR 16 L Glucose 158 H Lactic Acid Calcium 8.0 L Phosphorus Magnesium Total Bilirubin 1.3 AST 31 ALT 22 Alkaline Phosphatase 195 H NT-Pro-B Natriuret Pep 8340 H Total Protein 6.0 L Albumin 3.1 L Lipase 31 TSH (Reflex) Urine Color Dark yellow Urine Appearance Turbid H Urine pH 5.0 Ur Specific [place] 1.026 Urine Protein 2+ H Urine Glucose (UA) 3+ H Urine Ketones Trace H Ur Blood (Man) 3+ H Urine Nitrate Negative Urine Bilirubin 1+ H Urine Urobilinogen 1.0 Add Ur Microanalysis Reviewed Leukocyte Esterase Rfl 3+ H Urine RBC 21-50 H Urine WBC >100 H Ur Squamous Epith Cells Many H Urine Bacteria 4+ H Urine Casts 11-20 Nasal MRSA (PCR) 01/17/24 01/17/24 01/17/24 15:43 15:46 15:54 WBC 23.5 H RBC 3.44 L Hgb 11.3 L Hct 34.8 L MCV 101.2 H MCH 32.8 MCHC 32.5 RDW 13.5 Plt Count 117 L MPV 10.7 H Immature Gran % (Auto) Not Reportable Neut % (Auto) Not Reportable Lymph % (Auto) Not Reportable [place] % (Auto) Not Reportable Eos % (Auto) Not Reportable Baso % (Auto) Not Reportable Lymph # (Auto) Not Reportable [place] # (Auto) Not Reportable Eos # (Auto) Not Reportable Baso # (Auto) Not Reportable Abs Immat Gran (auto) Not Reportable Absolute Neuts (auto) Not Reportable Absolute Nucleated RBC Not Reportable Total Counted 100 Neutrophils % (Manual) 72 Band Neutrophils % 16 H Lymphocytes % (Manual) 8 L Monocytes % (Manual) 1 L Eosinophils % (Manual) 1 Metamyelocytes % 2 Nucleated RBC % Not Reportable Abs Neuts (Manual) 20.68 H Abs Lymphs (Manual) 1.88 Abs Monocytes (Manual) 0.23 Absolute Eos (Manual) 0.23 Nucleated RBCs 1 Platelet Estimate Decreased % Immature Plt Fraction 5.1 Schistocytes None seen PT 17.1 H INR 1.4 APTT 38.6 H Puncture Site Artline ABG pH 7.169 L* ABG pCO2 38.2 ABG pO2 126.4 H ABG PO2/FiO2 Ratio 1.26 ABG HCO3 13.6 L ABG O2 Saturation 97.7 ABG O2 Content 16.2 ABG Base Excess -14.1 A-a Gradient 548.4 Oxyhemoglobin 97.7 Carboxyhemoglobin Methemoglobin Reduced Hemoglobin Total Hemoglobin 11.6 L O2 Delivery Device High flow nasal loy O2 Liters/Min 15.0 Minute Volume Vent Rate Vent Mode FiO2 100 Tidal Volume PEEP Peak Inspir Pressure Pressure Support Sodium 134 L Potassium 4.8 Chloride 106 Carbon Dioxide 14 L Anion Gap 14 H BUN 34 H Creatinine 3.20 H Estim Creat Clear Calc 15 Estimated GFR 14 L Glucose 184 H Lactic Acid 5.7 H* Calcium 7.1 L Phosphorus 3.2 Magnesium 1.0 L Total Bilirubin 0.9 AST 34 ALT 20 Alkaline Phosphatase 107 NT-Pro-B Natriuret Pep Total Protein 5.0 L Albumin 2.5 L Lipase TSH (Reflex) Urine Color Urine Appearance Urine pH Ur Specific [place] Urine Protein Urine Glucose (UA) Urine Ketones Ur Blood (Man) Urine Nitrate Urine Bilirubin Urine Urobilinogen Add Ur Microanalysis Leukocyte Esterase Rfl Urine RBC Urine WBC Ur Squamous Epith Cells Urine Bacteria Urine Casts Nasal MRSA (PCR) Not detected 01/17/24 01/17/24 01/17/24 19:36 19:49 19:56 WBC RBC Hgb Hct MCV MCH MCHC RDW Plt Count MPV Immature Gran % (Auto) Neut % (Auto) Lymph % (Auto) [place] % (Auto) Eos % (Auto) Baso % (Auto) Lymph # (Auto) [place] # (Auto) Eos # (Auto) Baso # (Auto) Abs Immat Gran (auto) Absolute Neuts (auto) Absolute Nucleated RBC Total Counted Neutrophils % (Manual) Band Neutrophils % Lymphocytes % (Manual) Monocytes % (Manual) Eosinophils % (Manual) Metamyelocytes % Nucleated RBC % Abs Neuts (Manual) Abs Lymphs (Manual) Abs Monocytes (Manual) Absolute Eos (Manual) Nucleated RBCs Platelet Estimate % Immature Plt Fraction Schistocytes PT INR APTT Puncture Site Artline ABG pH 7.272 L* ABG pCO2 35.3 ABG pO2 320.3 H ABG PO2/FiO2 Ratio 3.20 ABG HCO3 15.9 L ABG O2 Saturation 99.7 ABG O2 Content 16.7 ABG Base Excess -10.0 A-a Gradient 357.4 Oxyhemoglobin 99.1 Carboxyhemoglobin 0.3 Methemoglobin 0.3 Reduced Hemoglobin 0.3 Total Hemoglobin 11.4 L O2 Delivery Device High flow therapy O2 Liters/Min 45.0 Minute Volume Vent Rate Vent Mode FiO2 100 Tidal Volume PEEP Peak Inspir Pressure Pressure Support Sodium 135 L Potassium 4.1 Chloride 102 Carbon Dioxide 16 L Anion Gap 17 H BUN 34 H Creatinine 3.10 H Estim Creat Clear Calc 16 Estimated GFR 14 L Glucose 146 H Lactic Acid 5.7 H* 5.7 H* Calcium Phosphorus Magnesium Total Bilirubin AST ALT Alkaline Phosphatase NT-Pro-B Natriuret Pep Total Protein Albumin Lipase TSH (Reflex) Urine Color Urine Appearance Urine pH Ur Specific [place] Urine Protein Urine Glucose (UA) Urine Ketones Ur Blood (Man) Urine Nitrate Urine Bilirubin Urine Urobilinogen Add Ur Microanalysis Leukocyte Esterase Rfl Urine RBC Urine WBC Ur Squamous Epith Cells Urine Bacteria Urine Casts Nasal MRSA (PCR) 01/17/24 01/17/24 01/18/24 19:56 23:43 03:31 WBC 39.4 H RBC 3.09 L Hgb 10.2 L Hct 30.6 L MCV 99.0 MCH 33.0 MCHC 33.3 RDW 14.0 Plt Count 71 L MPV 11.1 H Immature Gran % (Auto) Not Reportable Neut % (Auto) Not Reportable Lymph % (Auto) Not Reportable [place] % (Auto) Not Reportable Eos % (Auto) Not Reportable Baso % (Auto) Not Reportable Lymph # (Auto) Not Reportable [place] # (Auto) Not Reportable Eos # (Auto) Not Reportable Baso # (Auto) Not Reportable Abs Immat Gran (auto) Not Reportable Absolute Neuts (auto) Not Reportable Absolute Nucleated RBC Not Reportable Total Counted 100 Neutrophils % (Manual) 82 H Band Neutrophils % 7 H Lymphocytes % (Manual) 6 L Monocytes % (Manual) 5 Eosinophils % (Manual) Metamyelocytes % Nucleated RBC % Not Reportable Abs Neuts (Manual) 35.06 H Abs Lymphs (Manual) 2.36 Abs Monocytes (Manual) 1.97 H Absolute Eos (Manual) Nucleated RBCs Platelet Estimate Decreased % Immature Plt Fraction 9.6 Schistocytes None seen PT INR APTT Puncture Site Artline ABG pH 7.258 L* ABG pCO2 35.5 ABG pO2 358.4 H ABG PO2/FiO2 Ratio 3.98 ABG HCO3 15.5 L ABG O2 Saturation 99.7 ABG O2 Content 18.1 ABG Base Excess -10.7 A-a Gradient 246.9 Oxyhemoglobin 99.4 Carboxyhemoglobin 0.3 Methemoglobin 0.1 Reduced Hemoglobin 0.2 Total Hemoglobin 12.3 O2 Delivery Device Ventilator O2 Liters/Min Not Reportable Minute Volume Not Reportable Vent Rate 22 Vent Mode Cmv FiO2 90 Tidal Volume 350 PEEP 5 Peak Inspir Pressure Not Reportable Pressure Support Not Reportable Sodium 143 Potassium 4.4 Chloride 94 L Carbon Dioxide 27 Anion Gap 22 H BUN 36 H Creatinine 3.40 H Estim Creat Clear Calc 14 Estimated GFR 13 L Glucose 158 H Lactic Acid Cancelled 11.6 H* Calcium 7.2 L 6.0 L Phosphorus 6.0 H Magnesium 1.7 1.7 Total Bilirubin 1.3 AST 48 H ALT 25 Alkaline Phosphatase 83 NT-Pro-B Natriuret Pep Total Protein 5.0 L Albumin 2.8 L Lipase TSH (Reflex) 1.010 Urine Color Urine Appearance Urine pH Ur Specific [place] Urine Protein Urine Glucose (UA) Urine Ketones Ur Blood (Man) Urine Nitrate Urine Bilirubin Urine Urobilinogen Add Ur Microanalysis Leukocyte Esterase Rfl Urine RBC Urine WBC Ur Squamous Epith Cells Urine Bacteria Urine Casts Nasal MRSA (PCR) 01/18/24 03:44 WBC RBC Hgb Hct MCV MCH MCHC RDW Plt Count MPV Immature Gran % (Auto) Neut % (Auto) Lymph % (Auto) [place] % (Auto) Eos % (Auto) Baso % (Auto) Lymph # (Auto) [place] # (Auto) Eos # (Auto) Baso # (Auto) Abs Immat Gran (auto) Absolute Neuts (auto) Absolute Nucleated RBC Total Counted Neutrophils % (Manual) Band Neutrophils % Lymphocytes % (Manual) Monocytes % (Manual) Eosinophils % (Manual) Metamyelocytes % Nucleated RBC % Abs Neuts (Manual) Abs Lymphs (Manual) Abs Monocytes (Manual) Absolute Eos (Manual) Nucleated RBCs Platelet Estimate % Immature Plt Fraction Schistocytes PT INR APTT Puncture Site Artline ABG pH 7.219 L* ABG pCO2 39.0 ABG pO2 189.3 H ABG PO2/FiO2 Ratio 2.91 ABG HCO3 15.6 L ABG O2 Saturation 99.1 ABG O2 Content 16.1 ABG Base Excess -11.4 A-a Gradient 231.7 Oxyhemoglobin 98.9 Carboxyhemoglobin 0.3 Methemoglobin 0.0 Reduced Hemoglobin 0.8 Total Hemoglobin 11.3 L O2 Delivery Device Ventilator O2 Liters/Min Not Reportable Minute Volume Not Reportable Vent Rate 24 Vent Mode Cmv FiO2 65 Tidal Volume 350 PEEP 8 Peak Inspir Pressure Not Reportable Pressure Support Not Reportable Sodium Potassium Chloride Carbon Dioxide Anion Gap BUN Creatinine Estim Creat Clear Calc Estimated GFR Glucose Lactic Acid Calcium Phosphorus Magnesium Total Bilirubin AST ALT Alkaline Phosphatase NT-Pro-B Natriuret Pep Total Protein Albumin Lipase TSH (Reflex) Urine Color Urine Appearance Urine pH Ur Specific [place] Urine Protein Urine Glucose (UA) Urine Ketones Ur Blood (Man) Urine Nitrate Urine Bilirubin Urine Urobilinogen Add Ur Microanalysis Leukocyte Esterase Rfl Urine RBC Urine WBC Ur Squamous Epith Cells Urine Bacteria Urine Casts Nasal MRSA (PCR)
--- NOTE | 2024-01-18 08:22 | WPDCNINT ---
Assessment and Plan Assessment and plan (1) Septic shock: Code(s): A41.9 - Sepsis, unspecified organism; R65.21 - Severe sepsis with septic shock Status: Acute Assessment and Plan: Septic shock likely related to pyelonephritis -right UPJ stone with hydronephrosis status post -hypotensive in the ER, received 2 L IV fluids -01/16: Status post cystoscopy, right retrograde pyelogram, right ureteral stent placement 6 Palestinian contour -anesthesia placed central line and art line in the OR -patient received additional 2 L IV fluids in the ICU, with multiple bicarb IV pushes -on bicarb infusion with severe metabolic acidosis -patient maxed out on Levophed, vasopressin and Claudio-Synephrine. -she is also on epinephrine at 7 mcg/min -lactic acid worsening, anuric, worsening creatinine -patient has multiple allergies, has been started on aztreonam and vancomycin (01/16) patient did get 1 dose of ciprofloxacin in the ER -continue stress dose steroids -critically ill patient condition is guarded (2) Acute respiratory failure: Code(s): J96.00 - Acute respiratory failure, unspecified whether with hypoxia or hypercapnia Status: Acute Assessment and Plan: Acute respiratory failure likely related to metabolic acidosis, severe septic shock -01/17/2024: Patient was intubated -chest x-ray and ABGs reviewed -remains on CMV mode of ventilation, peep of 5, 100% FiO2. -ventilator adjusted with increasing PEEP to 8, and wean FiO2 to maintain O2 sats > 92% -sedated with fentanyl and Versed infusion, maintain RASS of -2 (3) Pyelonephritis: Code(s): N12 - Tubulo-interstitial nephritis, not specified as acute or chronic Status: Acute Assessment and Plan: Patient presented with generalized weakness and diffuse abdominal pain, CT scan of the abdomen and pelvis showed right UPJ stone with hydronephrosis and possible pyelonephritis since UA revealed UTI -continue antibiotics as above -01/16: Status post cystoscopy, right retrograde pyelogram, right ureteral stent placement 6 Palestinian contour (4) Acute kidney injury: Code(s): N17.9 - Acute kidney failure, unspecified Status: Acute Assessment and Plan: Patient with acute kidney injury likely related to septic shock, ATN, hypotension, pyelonephritis. Patient on furosemide, spironolactone and atenolol at home. -has been adequately fluid-resuscitated -increasing lactic acid -will maintain mean arterial pressures > 70 mmHg at all times for adequate end organ perfusion -patient will be given albumin -currently on bicarb infusion -nephrology has been consulted -continue monitor renal function, urine output and electrolytes (5) Right ureteral stone: Code(s): N20.1 - Calculus of ureter Status: Acute Assessment and Plan: 01/16: Status post cystoscopy, right retrograde pyelogram, right ureteral stent placement 6 Palestinian contour -urology following (6) Metabolic acidosis: Code(s): E87.20 - Acidosis, unspecified Status: Acute Assessment and Plan: Severe metabolic acidosis with elevated lactic acidosis -has received multiple doses of sodium bicarb IV pushes -on sodium bicarb infusion -maintain adequate mean arterial pressures Plan DVT prophylaxis: Lovenox renally dosed Stress ulcer prophylaxis: Protonix Nutrition: NPO for now Code Status: DNR Critical Care Time Spent: 59 minutes Discussed with patient's , daughter and updated them with patient's condition and plan of care. They are aware that the patient is critically and condition is guarded. I explained to them regarding septic shock, acute kidney injury, lactic acidosis. I answered all the questions and made myself available of the have any other questions Due to a high probability of clinically significant, life threatening deterioration, the patient required my highest level of preparedness to intervene emergently and I personally spent this critical care time directly and personally managing the patient. This critical care time included obtaining a history; examining the patient; pulse oximetry; ordering and review of studies; arranging urgent treatment with development of a management plan; evaluation of patient's response to treatment; frequent reassessment; and discussions with other providers. It was exclusive of separately billable procedures and treating other patients and teaching time. Please see Assessment and Plan section and the rest of the note for further information on patient assessment and treatment This dictation may have been done utilizing a voice recognition system. Attempts have been made to correct errors. However, there may be uncorrected grammatical, spelling, and recognitions errors present. Data Security Administrator Consult Note Consult date: 01/18/24 Reason for consult: Septic shock, pyelonephritis, kidney stone, hydronephrosis HPI: Ju Driscoll is a 78 year old female seen with history of hypertension hyperlipidemia pre diabetes, breast cancer, anxiety, presented the ED via EMS from home on 01/17/2024 with complains of generalized weakness. According the records patient has not been feeling well for the last couple a days with increasing fatigue, profound weakness, nausea and loose stools. On the day of admission she complained of abdominal pain which was diffuse. She also has been having fevers but denies any chills. In the ED patient was afebrile, tachypneic, tachycardic, hypotensive patient was given 2 L IV fluid bolus, CT scan of the abdomen and pelvis showed 11 mm stone at the right UPJ with mild right hydronephrosis she was given ciprofloxacin was taken to the OR on low-dose norepinephrine through peripheral line. WBC count of 13.9 with 10% bands, hemoglobin 12.8, platelets 135, sodium 135, CO2 of 13, anion gap of 17, BUN 31 creatinine of 2.90 UA was positive for UTI revealed UTI, her nasal MRSA was negative. 01/16: Status post cystoscopy, right retrograde pyelogram, right ureteral stent placement 6 Palestinian contour After arrival to the ICU on the evening of 01/17/2024 patient was more hypotensive, requiring vasopressin, norepinephrine, Claudio-Synephrine was added overnight along with epinephrine. Patient's lactic acid was trending up, given additional IV fluids, patient was febrile to on T-max of 103.1?. Worsening creatinine and, metabolic acidosis as seen on ABGs. Patient did not want to try the BiPAP and had to be intubated after failing Vapotherm as she was in significant metabolic acidosis Patient seen and examined this morning, remains intubated on CMV mode of ventilation, peep of 5, 100% FiO2. Sedated with fentanyl 25 mcg/hr and Versed 1 mg/hr. Anuric. ABGs continue show severe metabolic acidosis, lactic acid up to 11.6. Patient is on maximum doses off vasopressin, Levophed, Claudio-Synephrine. Epinephrine at 7 mcg/min. Patient does not open her eyes and follows simple commands Review of Systems Review of Systems: ROS unobtainable: Yes unobtainable due to endotracheal tube, unobtainable due to medical condition and unobtainable due to mental status PMFSH Past Medical History Medical History (Updated 01/18/24 @ 09:43 by Leonides Olsen MD) Arthritis Breast cancer Bronchitis Chronic back pain Hyperlipidemia Hypertension Pneumonia Sarcoma right knee Seasonal allergies Surgical History Surgical History (Updated 01/17/24 @ 15:57 by Laurel Gomez PA-C) History of arthroplasty of both hips History of arthroplasty of both knees History of arthroplasty of both shoulders History of cholecystectomy History of lumpectomy of right breast Family History Family History (Updated 01/17/24 @ 17:07 by Edith Parrish RN) Sibling Heart disease Hypertension Mother Heart disease Hypertension Father Heart disease CHF (congestive heart failure) Social History Social History (Updated 01/18/24 @ 00:06 by Laurel Gomez PA-C) Social History: Surrogate medical decision maker: Fausto Driscoll, spouse. Code status: Full code. Smoking status: Never smoker Alcohol intake: never Alcohol use details: Rare alcohol use in moderation. Substance use: never Substance use type: opiates Other substance usage details: for chronic back pain Do You Feel Safe in your Home?: Yes Lack of Transportation: No Lack of Food: Never True Current Housing: I Have Housing Concerned About Future Housing: No Difficulty Paying Gas/Electric Bills: No Difficulty Paying for Meds: No Currently Unemployed: No Education: Decline to Answer Difficulty w/ Childcare or Family Care: No Living arrangements: with family Spiritual care concerns: No Meds Home Medications and Allergies Home Medications Medication Instructions Recorded Confirmed Type atenolol 100 mg tablet 100 mg PO DAILY 09/06/23 01/17/24 History atorvastatin 10 mg tablet 10 mg PO DAILY 09/06/23 01/17/24 History cholecalciferol (vitamin D3) 1,250 1,250 mcg PO MONTHLY 09/06/23 01/17/24 History mcg (50,000 unit) capsule duloxetine 60 mg capsule,delayed 60 mg PO DAILY 09/06/23 01/17/24 History release nabumetone 750 mg tablet 750 mg PO Q12H 09/06/23 01/17/24 History ondansetron HCl 4 mg tablet 4 mg PO Q6H PRN Nausea 09/06/23 01/17/24 History pantoprazole 40 mg tablet,delayed 40 mg PO DAILY 09/06/23 01/17/24 History release spironolactone 25 mg tablet 25 mg PO DAILY 09/06/23 01/17/24 History tamoxifen 20 mg tablet 20 mg PO DAILY 09/06/23 01/17/24 History Lactobacillus rhamnosus GG 10 1 cap PO HS 01/17/24 01/17/24 History billion cell capsule (Culturelle) cholecalciferol (vitamin D3) 50 2,000 unit PO DAILY 01/17/24 01/17/24 History mcg (2,000 unit) tablet (Vitamin D3) cranberry extract 500 mg capsule 500 mg PO DAILY 01/17/24 01/17/24 History cyanocobalamin (vitamin B-12) 2,500 mcg PO 2XW 01/17/24 01/17/24 History 2,500 mcg tablet empagliflozin 10 mg tablet 10 mg PO DAILY 01/17/24 01/17/24 History (Jardiance) furosemide 20 mg tablet 20 mg PO DAILY 01/17/24 01/17/24 History oxycodone 5 mg tablet 5 mg PO Q6-8H PRN Pain (Scale 01/17/24 01/17/24 History Score 7-10) sumatriptan succinate 50 mg tablet 50 mg PO Q8H PRN Headache 01/17/24 01/17/24 History Allergies Allergy/AdvReac Type Severity Reaction Status Date / Time acetaminophen Allergy Hives Verified 01/17/24 08:59 [From Darvocet-N 100] adhesive tape Allergy Rash Verified 01/17/24 08:59 amoxicillin [From Augmentin] Allergy Rash Verified 01/17/24 08:59 azithromycin Allergy Hives Verified 01/17/24 08:59 Cephalosporins Allergy Rash Verified 01/17/24 08:59 clarithromycin Allergy Hives Verified 01/17/24 08:59 clavulanic acid Allergy Rash Verified 01/17/24 08:59 [From Augmentin] doxycycline Allergy Hives Verified 01/17/24 08:59 erythromycin base Allergy Hives Verified 01/17/24 08:59 Iodinated Contrast Media Allergy Hives Verified 01/17/24 08:59 iodine Allergy Hives Verified 01/17/24 08:59 levofloxacin Allergy Rash Verified 01/17/24 08:59 mold Allergy Congested Verified 01/17/24 08:59 morphine Allergy Hives Verified 01/17/24 08:59 propoxyphene Allergy Hives Verified 01/17/24 08:59 [From Darvocet-N 100] Sulfa (Sulfonamide Allergy Hives Verified 01/17/24 08:59 Antibiotics) aspirin AdvReac Gastrointestinal Verified 01/17/24 12:47 Upset ibuprofen AdvReac Gastrointestinal Verified 01/17/24 12:47 Upset lactase AdvReac Gastrointestinal Verified 01/17/24 08:59 Upset meperidine AdvReac Gastrointestinal Verified 01/17/24 12:47 Upset paroxetine AdvReac Gastrointestinal Verified 01/17/24 12:47 Upset pentazocine AdvReac Gastrointestinal Verified 01/17/24 12:47 Upset Vital Signs Vital Signs - 24 hr 01/17/24 08:47 01/17/24 09:15 01/17/24 09:31 Temperature 98.7 F Pulse Rate 108 H 106 H 102 H Respiratory Rate 32 H 23 H 20 Blood Pressure 110/57 L 85/47 L Pulse Oximetry 95 94 95 Oxygen Delivery Room Air Oxygen Flow Rate Fraction of Inspired Oxygen 01/17/24 09:51 01/17/24 10:36 01/17/24 11:01 Temperature 97.6 F Pulse Rate 99 102 H 97 Respiratory Rate 20 20 20 Blood Pressure 87/45 L 126/105 H 91/46 L Pulse Oximetry 93 95 Oxygen Delivery Oxygen Flow Rate Fraction of Inspired Oxygen 01/17/24 12:06 01/17/24 13:02 01/17/24 13:19 Temperature Pulse Rate 95 99 103 H Respiratory Rate 25 H 31 H Blood Pressure 75/49 L 76/46 L 78/41 L Pulse Oximetry 94 90 Oxygen Delivery Oxygen Flow Rate Fraction of Inspired Oxygen 01/17/24 13:20 01/17/24 13:26 01/17/24 15:36 Temperature Pulse Rate 104 H 105 H 98 Respiratory Rate 32 H Blood Pressure 94/58 L 82/55 L Pulse Oximetry 100 Oxygen Delivery Oxygen Flow Rate Fraction of Inspired Oxygen 01/17/24 15:37 01/17/24 16:58 01/17/24 17:51 Temperature 103.1 F H 101.6 F H Pulse Rate 99 Respiratory Rate Blood Pressure 82/55 L Pulse Oximetry Oxygen Delivery Oxygen Flow Rate Fraction of Inspired Oxygen 01/17/24 15:55 01/17/24 16:00 01/17/24 16:00 Temperature 100.9 F H Pulse Rate 111 H 111 H Respiratory Rate 37 H Blood Pressure 128/75 Pulse Oximetry 97 100 Oxygen Delivery High Flow Nasal Cannula Oxygen Flow Rate 15 Fraction of Inspired Oxygen 01/17/24 16:00 01/17/24 18:00 01/17/24 18:00 Temperature 101.5 F H Pulse Rate 111 H 103 H 103 H Respiratory Rate 37 H 31 H Blood Pressure 83/52 L Pulse Oximetry 100 100 Oxygen Delivery High Flow Nasal Cannula Oxygen Flow Rate 15 Fraction of Inspired Oxygen 01/17/24 18:25 01/17/24 17:30 01/17/24 15:45 Temperature Pulse Rate 103 H 103 H 102 H Respiratory Rate Blood Pressure 88/53 L 99/62 L Pulse Oximetry 99 Oxygen Delivery High Flow Therapy with Na Oxygen Flow Rate 45 Fraction of Inspired Oxygen 100 01/17/24 16:00 01/17/24 16:15 01/17/24 16:30 Temperature Pulse Rate 111 H 108 H 106 H Respiratory Rate Blood Pressure 128/75 120/65 104/59 L Pulse Oximetry Oxygen Delivery Oxygen Flow Rate Fraction of Inspired Oxygen 01/17/24 16:45 01/17/24 17:00 01/17/24 17:15 Temperature Pulse Rate 104 H 103 H 106 H Respiratory Rate Blood Pressure 89/53 L 89/52 L 91/54 L Pulse Oximetry Oxygen Delivery Oxygen Flow Rate Fraction of Inspired Oxygen 01/17/24 17:45 01/17/24 18:10 01/17/24 18:40 Temperature Pulse Rate 113 H 101 H 97 Respiratory Rate Blood Pressure 90/55 L 93/56 L 101/57 L Pulse Oximetry Oxygen Delivery Oxygen Flow Rate Fraction of Inspired Oxygen 01/17/24 19:30 01/17/24 19:59 01/17/24 19:45 Temperature Pulse Rate 106 H Respiratory Rate Blood Pressure 98/60 L Pulse Oximetry 100 100 Oxygen Delivery High Flow Therapy with Na High Flow Therapy with Na Oxygen Flow Rate 45 45 Fraction of Inspired Oxygen 100 70 01/17/24 19:45 01/17/24 19:45 01/17/24 20:21 Temperature Pulse Rate 106 H 106 H 108 H Respiratory Rate Blood Pressure 98/60 L 98/60 L 103/60 Pulse Oximetry Oxygen Delivery Oxygen Flow Rate Fraction of Inspired Oxygen 01/17/24 20:00 01/17/24 20:00 01/17/24 20:00 Temperature 99.8 F H Pulse Rate 105 H 106 H Respiratory Rate 24 H Blood Pressure 103/61 100/60 Pulse Oximetry 100 100 Oxygen Delivery High Flow Nasal Cannula Oxygen Flow Rate 45 Fraction of Inspired Oxygen 100 01/17/24 20:15 01/17/24 20:30 01/17/24 20:45 Temperature 99.8 F H 99.7 F H 99.7 F H Pulse Rate 106 H 107 H 106 H Respiratory Rate 26 H 24 H 26 H Blood Pressure 97/55 L 98/58 L 97/59 L Pulse Oximetry 100 100 100 Oxygen Delivery Oxygen Flow Rate Fraction of Inspired Oxygen 01/17/24 21:00 01/17/24 21:15 01/17/24 22:00 Temperature 99.7 F H 99.7 F H Pulse Rate 106 H 105 H 106 H Respiratory Rate 27 H 28 H Blood Pressure 95/56 L 92/57 L 95/56 L Pulse Oximetry 98 92 Oxygen Delivery Oxygen Flow Rate Fraction of Inspired Oxygen 01/17/24 22:15 01/17/24 22:00 01/17/24 22:19 Temperature 99.7 F H Pulse Rate 133 H 106 H 105 H Respiratory Rate 34 H Blood Pressure 87/62 L 95/56 L 100/59 L Pulse Oximetry 92 Oxygen Delivery Oxygen Flow Rate Fraction of Inspired Oxygen 01/17/24 22:20 01/17/24 22:50 01/17/24 22:50 Temperature Pulse Rate 120 H 104 H 103 H Respiratory Rate 22 H 22 H Blood Pressure 92/64 L Pulse Oximetry Oxygen Delivery Oxygen Flow Rate Fraction of Inspired Oxygen 01/17/24 23:00 01/17/24 21:30 01/17/24 22:00 Temperature 99.7 F H 99.7 F H Pulse Rate 105 H 106 H 106 H Respiratory Rate 22 H 29 H 32 H Blood Pressure 95/55 L 95/56 L Pulse Oximetry 98 98 Oxygen Delivery Oxygen Flow Rate Fraction of Inspired Oxygen 01/17/24 22:32 01/17/24 20:00 01/17/24 22:00 Temperature Pulse Rate 101 H 106 H 106 H Respiratory Rate Blood Pressure Pulse Oximetry 100 Oxygen Delivery Mechanical Ventilation Oxygen Flow Rate Fraction of Inspired Oxygen 100 01/17/24 23:44 01/17/24 22:16 01/17/24 22:30 Temperature 99.7 F H 99.6 F Pulse Rate 107 H 96 105 H Respiratory Rate 35 H 26 H Blood Pressure 114/63 91/64 L 101/60 Pulse Oximetry 93 95 Oxygen Delivery Oxygen Flow Rate Fraction of Inspired Oxygen 01/17/24 22:45 01/17/24 23:00 01/17/24 23:15 Temperature 99.6 F 99.5 F 99.5 F Pulse Rate 106 H 108 H 102 H Respiratory Rate 18 22 H 22 H Blood Pressure 109/66 110/61 113/64 Pulse Oximetry 100 100 100 Oxygen Delivery Oxygen Flow Rate Fraction of Inspired Oxygen 01/17/24 23:30 01/17/24 23:45 01/18/24 00:13 Temperature 99.4 F 99.3 F Pulse Rate 108 H 108 H 107 H Respiratory Rate 22 H 22 H Blood Pressure 109/61 109/62 106/62 Pulse Oximetry 100 100 Oxygen Delivery Oxygen Flow Rate Fraction of Inspired Oxygen 01/18/24 00:16 01/18/24 00:00 01/17/24 23:00 Temperature Pulse Rate 107 H 107 H 101 H Respiratory Rate 24 H Blood Pressure 108/63 110/60 Pulse Oximetry Oxygen Delivery Oxygen Flow Rate Fraction of Inspired Oxygen 01/18/24 00:00 01/18/24 00:00 01/18/24 00:00 Temperature Pulse Rate 107 H 107 H 107 H Respiratory Rate 22 H Blood Pressure 108/63 108/63 Pulse Oximetry Oxygen Delivery Oxygen Flow Rate Fraction of Inspired Oxygen 01/18/24 00:00 01/18/24 00:23 01/18/24 00:37 Temperature Pulse Rate 107 H 98 107 H Respiratory Rate 22 H 26 H Blood Pressure Pulse Oximetry 100 Oxygen Delivery Mechanical Ventilation Oxygen Flow Rate Fraction of Inspired Oxygen 65 01/18/24 00:40 01/18/24 00:41 01/18/24 00:44 Temperature Pulse Rate 108 H 108 H 108 H Respiratory Rate 26 H Blood Pressure 104/62 105/63 Pulse Oximetry Oxygen Delivery Oxygen Flow Rate Fraction of Inspired Oxygen 01/18/24 00:00 01/18/24 00:00 01/18/24 01:00 Temperature 99.3 F 99.3 F Pulse Rate 106 H 106 H 106 H Respiratory Rate 24 H 24 H 24 H Blood Pressure 110/64 105/61 Pulse Oximetry 100 100 99 Oxygen Delivery Mechanical Ventilation Oxygen Flow Rate Fraction of Inspired Oxygen 65 01/17/24 22:00 01/18/24 00:00 01/18/24 00:00 Temperature Pulse Rate 106 H Respiratory Rate Blood Pressure Pulse Oximetry 100 Oxygen Delivery High Flow Nasal Cannula Oxygen Flow Rate 45 Fraction of Inspired Oxygen 100 65 01/18/24 02:00 01/18/24 02:00 01/18/24 02:00 Temperature Pulse Rate 100 100 100 Respiratory Rate 24 H Blood Pressure 95/60 L 95/60 L Pulse Oximetry Oxygen Delivery Oxygen Flow Rate Fraction of Inspired Oxygen 01/18/24 02:00 01/18/24 02:00 01/18/24 02:00 Temperature Pulse Rate 100 100 100 Respiratory Rate 24 H Blood Pressure 95/60 L Pulse Oximetry Oxygen Delivery Oxygen Flow Rate Fraction of Inspired Oxygen 01/18/24 02:00 01/18/24 02:11 01/18/24 02:14 Temperature 99.7 F H Pulse Rate 100 102 H 100 Respiratory Rate 24 H 24 H Blood Pressure 95/60 L 95/59 L Pulse Oximetry 99 Oxygen Delivery Oxygen Flow Rate Fraction of Inspired Oxygen 01/18/24 02:15 01/18/24 02:17 01/18/24 02:25 Temperature 99.7 F H Pulse Rate 99 99 98 Respiratory Rate 24 H 24 H Blood Pressure 95/60 L 92/58 L Pulse Oximetry 100 Oxygen Delivery Oxygen Flow Rate Fraction of Inspired Oxygen 01/18/24 02:32 01/18/24 02:30 01/18/24 02:49 Temperature 99.7 F H Pulse Rate 99 98 101 H Respiratory Rate 24 H 24 H 24 H Blood Pressure 99/66 L Pulse Oximetry 98 Oxygen Delivery Oxygen Flow Rate Fraction of Inspired Oxygen 01/18/24 03:00 01/18/24 02:45 01/18/24 03:00 Temperature 99.7 F H 99.8 F H Pulse Rate 104 H 100 104 H Respiratory Rate 24 H 27 H Blood Pressure 98/63 L 97/64 L 98/63 L Pulse Oximetry 99 99 Oxygen Delivery Oxygen Flow Rate Fraction of Inspired Oxygen 01/18/24 03:03 01/18/24 03:05 01/18/24 03:14 Temperature Pulse Rate 106 H 104 H 106 H Respiratory Rate 30 H Blood Pressure 98/64 L 104/66 Pulse Oximetry Oxygen Delivery Oxygen Flow Rate Fraction of Inspired Oxygen 01/18/24 03:15 01/18/24 03:23 01/18/24 03:28 Temperature Pulse Rate 109 H 104 H 101 H Respiratory Rate Blood Pressure 102/64 96/65 L 115/72 Pulse Oximetry Oxygen Delivery Oxygen Flow Rate Fraction of Inspired Oxygen 01/18/24 03:34 01/18/24 03:15 01/18/24 03:30 Temperature 99.9 F H 99.9 F H Pulse Rate 98 108 H 101 H Respiratory Rate 30 H 28 H Blood Pressure 96/63 L 104/64 115/71 Pulse Oximetry 98 98 Oxygen Delivery Oxygen Flow Rate Fraction of Inspired Oxygen 01/18/24 03:39 01/18/24 03:50 01/18/24 04:00 Temperature Pulse Rate 109 H 111 H 114 H Respiratory Rate Blood Pressure 96/64 L 99/66 L 103/67 Pulse Oximetry Oxygen Delivery Oxygen Flow Rate Fraction of Inspired Oxygen 01/18/24 04:00 01/18/24 04:00 01/18/24 04:00 Temperature Pulse Rate 114 H 113 H 113 H Respiratory Rate Blood Pressure 102/66 103/67 102/67 Pulse Oximetry Oxygen Delivery Oxygen Flow Rate Fraction of Inspired Oxygen 01/18/24 04:00 01/18/24 04:00 01/18/24 04:00 Temperature Pulse Rate 114 H 114 H 113 H Respiratory Rate 24 H 24 H 29 H Blood Pressure Pulse Oximetry 99 Oxygen Delivery Mechanical Ventilation Oxygen Flow Rate Fraction of Inspired Oxygen 50 01/18/24 04:00 01/18/24 04:00 01/18/24 05:13 Temperature 100 F H Pulse Rate 113 H 109 H Respiratory Rate 29 H Blood Pressure 102/67 107/67 Pulse Oximetry 99 Oxygen Delivery Oxygen Flow Rate Fraction of Inspired Oxygen 50 01/18/24 05:13 01/18/24 04:15 01/18/24 04:30 Temperature 100 F H 100 F H Pulse Rate 109 H 115 H 113 H Respiratory Rate 28 H 29 H Blood Pressure 106/67 99/64 L 103/66 Pulse Oximetry 97 97 Oxygen Delivery Oxygen Flow Rate Fraction of Inspired Oxygen 01/18/24 04:45 01/18/24 05:00 01/18/24 03:00 Temperature 99.8 F H 99.7 F H Pulse Rate 112 H 109 H 109 H Respiratory Rate 29 H 29 H Blood Pressure 103/66 106/66 Pulse Oximetry 93 96 98 Oxygen Delivery Mechanical Ventilation Oxygen Flow Rate Fraction of Inspired Oxygen 50 01/18/24 05:00 01/18/24 06:00 01/18/24 06:00 Temperature Pulse Rate 109 H 109 H 109 H Respiratory Rate Blood Pressure 109/66 109/66 Pulse Oximetry 98 Oxygen Delivery Mechanical Ventilation Oxygen Flow Rate Fraction of Inspired Oxygen 50 01/18/24 06:00 01/18/24 06:00 01/18/24 06:00 Temperature Pulse Rate 109 H 109 H 109 H Respiratory Rate 28 H Blood Pressure 109/66 109/66 Pulse Oximetry Oxygen Delivery Oxygen Flow Rate Fraction of Inspired Oxygen 01/18/24 06:00 01/18/24 05:15 01/18/24 05:30 Temperature 99.5 F 99.3 F Pulse Rate 109 H 110 H 107 H Respiratory Rate 28 H 28 H 28 H Blood Pressure 106/67 112/68 Pulse Oximetry 97 97 Oxygen Delivery Oxygen Flow Rate Fraction of Inspired Oxygen 01/18/24 05:45 01/18/24 06:00 01/18/24 06:18 Temperature 99.3 F 99.3 F Pulse Rate 109 H 109 H 104 H Respiratory Rate 28 H 28 H Blood Pressure 109/66 109/66 108/65 Pulse Oximetry 97 97 Oxygen Delivery Oxygen Flow Rate Fraction of Inspired Oxygen 01/18/24 06:18 01/18/24 04:00 01/18/24 06:00 Temperature Pulse Rate 111 H 113 H 110 H Respiratory Rate Blood Pressure 108/63 Pulse Oximetry Oxygen Delivery Oxygen Flow Rate Fraction of Inspired Oxygen 01/18/24 07:49 01/18/24 07:49 01/18/24 07:35 Temperature Pulse Rate 107 H 107 H 107 H Respiratory Rate Blood Pressure 102/64 102/65 Pulse Oximetry 96 Oxygen Delivery Mechanical Ventilation Oxygen Flow Rate Fraction of Inspired Oxygen 70 01/18/24 08:00 01/18/24 08:00 01/18/24 08:00 Temperature Pulse Rate 110 H 107 H 111 H Respiratory Rate Blood Pressure 99/59 L 99/66 L 99/66 L Pulse Oximetry Oxygen Delivery Oxygen Flow Rate Fraction of Inspired Oxygen 01/18/24 08:00 01/18/24 08:00 01/18/24 08:00 Temperature 99.5 F Pulse Rate 111 H 111 H 107 H Respiratory Rate 28 H 28 H 28 H Blood Pressure 105/64 Pulse Oximetry 97 Oxygen Delivery Oxygen Flow Rate Fraction of Inspired Oxygen Exam Narrative: General: Intubated and sedated HEENT:? Pupils are equal and reactive, sclera is clear. ETT in place Neck:? Supple Respiratory:? Coarse breath with crackles bilaterally, and wheezing, adequate air entry Cardiac:? S1-S2 is normal, tachycardia Abdomen:? Soft, nontender, nondistended, protuberant, hypoactive bowel sounds Extremities:? Bilateral lower extremity edema, decreased pedal pulses, feet are cold bilaterally and discolored Neuro:? Patient intubated, sedated, does not open her eyes or follow simple commands Skin:? Purple discoloration of bilateral feet and toes, tips of the fingers also discolored Psych:? Unable to assess Results Labs 01/18/24 03:31 01/18/24 03:31 Labs: Short CBC 01/17/24 01/17/24 01/18/24 Range/Units 09:08 15:46 03:31 WBC 13.5 H 23.5 H 39.4 H (4.5-10.0) K/mm3 Hgb 12.8 11.3 L 10.2 L (12.0-15.0) g/dL Hct 38.2 34.8 L 30.6 L (37.0-47.0) % Plt Count 135 L 117 L 71 L (150-375) k/mm3 BMP 01/17/24 01/17/24 01/17/24 09:08 15:43 19:56 Sodium 135 L 134 L 135 L Potassium 4.3 4.8 4.1 Chloride 105 106 102 Carbon Dioxide 13 L 14 L 16 L BUN 31 H 34 H 34 H Creatinine 2.90 H 3.20 H 3.10 H Glucose 158 H 184 H 146 H Calcium 8.0 L 7.1 L 7.2 L 01/18/24 03:31 Sodium 143 Potassium 4.4 Chloride 94 L Carbon Dioxide 27 BUN 36 H Creatinine 3.40 H Glucose 158 H Calcium 6.0 L Liver Function 01/17/24 01/17/24 01/18/24 Range/Units 09:08 15:43 03:31 Total Bilirubin 1.3 0.9 1.3 (0.2-1.3) mg/dL AST 31 34 48 H (14-36) U/L ALT 22 20 25 (6-35) U/L Alkaline Phosphatase 195 H 107 83 (38-126) U/L Albumin 3.1 L 2.5 L 2.8 L (3.5-5.1) g/dL Urine 01/17/24 Range/Units 10:36 Urine Color Dark yellow (Yellow) Urine Appearance Turbid H (Clear) Urine pH 5.0 (5.0-9.0) Ur Specific [place] 1.026 (1.001-1.035) Urine Protein 2+ H (Negative) mg/dL Urine Glucose (UA) 3+ H (Negative) mg/dL
--- NOTE | 2024-01-18 08:28 | WPDANESPN ---
Anes - Prog Note Post-Op Date/Time: 01/18/24 08:28 Cardiovascular status: other (4 pressers. 3 maxed out. ) Respiratory status: other (intubated. PSV) Airway patency: other (secured with ETT) Mental status: other (sedated) Post-Op hydration status: other (fluid overloaded) Vital Signs: Last Vital Signs Temp 37.5 C 01/18/24 08:00 Pulse 107 H 01/18/24 08:00 Resp 28 H 01/18/24 08:00 BP 105/64 01/18/24 08:00 Pulse Ox 97 01/18/24 08:00 O2 Del Method Mechanical Ventilation 01/18/24 07:35 O2 Flow Rate 45 01/17/24 22:00 FiO2 70 01/18/24 07:35 Pain Score (VAS): 210 I/O: Intake & Output 01/17/24 01/18/24 01/18/24 23:59 07:59 15:59 Intake Total 2224.3 2413.0 252.3 Output Total 100 100 Balance 2124.3 2313.0 252.3 Laboratory Tests 01/18/24 03:31 01/18/24 03:31 01/17/24 01/17/24 01/17/24 09:08 10:36 14:41 WBC 13.5 H RBC 3.90 L Hgb 12.8 Hct 38.2 MCV 97.9 MCH 32.8 MCHC 33.5 RDW 13.5 Plt Count 135 L MPV 10.3 Immature Gran % (Auto) Not Reportable Neut % (Auto) Not Reportable Lymph % (Auto) Not Reportable [place] % (Auto) Not Reportable Eos % (Auto) Not Reportable Baso % (Auto) Not Reportable Lymph # (Auto) Not Reportable [place] # (Auto) Not Reportable Eos # (Auto) Not Reportable Baso # (Auto) Not Reportable Abs Immat Gran (auto) Not Reportable Absolute Neuts (auto) Not Reportable Absolute Nucleated RBC Not Reportable Total Counted 100 Neutrophils % (Manual) 88 H Band Neutrophils % 10 H Lymphocytes % (Manual) 2.0 L Monocytes % (Manual) Eosinophils % (Manual) Metamyelocytes % Nucleated RBC % Not Reportable Abs Neuts (Manual) 13.23 H Abs Lymphs (Manual) 0.27 L Abs Monocytes (Manual) Absolute Eos (Manual) Nucleated RBCs Platelet Estimate Slightly decreased % Immature Plt Fraction Schistocytes None seen PT INR APTT Puncture Site Artline ABG pH 7.261 L* ABG pCO2 39.0 ABG pO2 189.2 H ABG PO2/FiO2 Ratio 6.76 ABG HCO3 17.1 L ABG O2 Saturation 99.1 ABG O2 Content 16.9 ABG Base Excess -9.2 A-a Gradient < 0.0 Oxyhemoglobin 98.7 Carboxyhemoglobin Methemoglobin Reduced Hemoglobin Total Hemoglobin 11.9 L O2 Delivery Device Nasal cannula O2 Liters/Min 2.0 Minute Volume Vent Rate Vent Mode FiO2 28 Tidal Volume PEEP Peak Inspir Pressure Pressure Support Sodium 135 L Potassium 4.3 Chloride 105 Carbon Dioxide 13 L Anion Gap 17 H BUN 31 H Creatinine 2.90 H Estim Creat Clear Calc 17 Estimated GFR 16 L Glucose 158 H Lactic Acid Calcium 8.0 L Phosphorus Magnesium Total Bilirubin 1.3 AST 31 ALT 22 Alkaline Phosphatase 195 H NT-Pro-B Natriuret Pep 8340 H Total Protein 6.0 L Albumin 3.1 L Lipase 31 TSH (Reflex) Urine Color Dark yellow Urine Appearance Turbid H Urine pH 5.0 Ur Specific [place] 1.026 Urine Protein 2+ H Urine Glucose (UA) 3+ H Urine Ketones Trace H Ur Blood (Man) 3+ H Urine Nitrate Negative Urine Bilirubin 1+ H Urine Urobilinogen 1.0 Add Ur Microanalysis Reviewed Leukocyte Esterase Rfl 3+ H Urine RBC 21-50 H Urine WBC >100 H Ur Squamous Epith Cells Many H Urine Bacteria 4+ H Urine Casts 11-20 Nasal MRSA (PCR) 01/17/24 01/17/24 01/17/24 15:43 15:46 15:54 WBC 23.5 H RBC 3.44 L Hgb 11.3 L Hct 34.8 L MCV 101.2 H MCH 32.8 MCHC 32.5 RDW 13.5 Plt Count 117 L MPV 10.7 H Immature Gran % (Auto) Not Reportable Neut % (Auto) Not Reportable Lymph % (Auto) Not Reportable [place] % (Auto) Not Reportable Eos % (Auto) Not Reportable Baso % (Auto) Not Reportable Lymph # (Auto) Not Reportable [place] # (Auto) Not Reportable Eos # (Auto) Not Reportable Baso # (Auto) Not Reportable Abs Immat Gran (auto) Not Reportable Absolute Neuts (auto) Not Reportable Absolute Nucleated RBC Not Reportable Total Counted 100 Neutrophils % (Manual) 72 Band Neutrophils % 16 H Lymphocytes % (Manual) 8 L Monocytes % (Manual) 1 L Eosinophils % (Manual) 1 Metamyelocytes % 2 Nucleated RBC % Not Reportable Abs Neuts (Manual) 20.68 H Abs Lymphs (Manual) 1.88 Abs Monocytes (Manual) 0.23 Absolute Eos (Manual) 0.23 Nucleated RBCs 1 Platelet Estimate Decreased % Immature Plt Fraction 5.1 Schistocytes None seen PT 17.1 H INR 1.4 APTT 38.6 H Puncture Site Artline ABG pH 7.169 L* ABG pCO2 38.2 ABG pO2 126.4 H ABG PO2/FiO2 Ratio 1.26 ABG HCO3 13.6 L ABG O2 Saturation 97.7 ABG O2 Content 16.2 ABG Base Excess -14.1 A-a Gradient 548.4 Oxyhemoglobin 97.7 Carboxyhemoglobin Methemoglobin Reduced Hemoglobin Total Hemoglobin 11.6 L O2 Delivery Device High flow nasal loy O2 Liters/Min 15.0 Minute Volume Vent Rate Vent Mode FiO2 100 Tidal Volume PEEP Peak Inspir Pressure Pressure Support Sodium 134 L Potassium 4.8 Chloride 106 Carbon Dioxide 14 L Anion Gap 14 H BUN 34 H Creatinine 3.20 H Estim Creat Clear Calc 15 Estimated GFR 14 L Glucose 184 H Lactic Acid 5.7 H* Calcium 7.1 L Phosphorus 3.2 Magnesium 1.0 L Total Bilirubin 0.9 AST 34 ALT 20 Alkaline Phosphatase 107 NT-Pro-B Natriuret Pep Total Protein 5.0 L Albumin 2.5 L Lipase TSH (Reflex) Urine Color Urine Appearance Urine pH Ur Specific [place] Urine Protein Urine Glucose (UA) Urine Ketones Ur Blood (Man) Urine Nitrate Urine Bilirubin Urine Urobilinogen Add Ur Microanalysis Leukocyte Esterase Rfl Urine RBC Urine WBC Ur Squamous Epith Cells Urine Bacteria Urine Casts Nasal MRSA (PCR) Not detected 01/17/24 01/17/24 01/17/24 19:36 19:49 19:56 WBC RBC Hgb Hct MCV MCH MCHC RDW Plt Count MPV Immature Gran % (Auto) Neut % (Auto) Lymph % (Auto) [place] % (Auto) Eos % (Auto) Baso % (Auto) Lymph # (Auto) [place] # (Auto) Eos # (Auto) Baso # (Auto) Abs Immat Gran (auto) Absolute Neuts (auto) Absolute Nucleated RBC Total Counted Neutrophils % (Manual) Band Neutrophils % Lymphocytes % (Manual) Monocytes % (Manual) Eosinophils % (Manual) Metamyelocytes % Nucleated RBC % Abs Neuts (Manual) Abs Lymphs (Manual) Abs Monocytes (Manual) Absolute Eos (Manual) Nucleated RBCs Platelet Estimate % Immature Plt Fraction Schistocytes PT INR APTT Puncture Site Artline ABG pH 7.272 L* ABG pCO2 35.3 ABG pO2 320.3 H ABG PO2/FiO2 Ratio 3.20 ABG HCO3 15.9 L ABG O2 Saturation 99.7 ABG O2 Content 16.7 ABG Base Excess -10.0 A-a Gradient 357.4 Oxyhemoglobin 99.1 Carboxyhemoglobin 0.3 Methemoglobin 0.3 Reduced Hemoglobin 0.3 Total Hemoglobin 11.4 L O2 Delivery Device High flow therapy O2 Liters/Min 45.0 Minute Volume Vent Rate Vent Mode FiO2 100 Tidal Volume PEEP Peak Inspir Pressure Pressure Support Sodium 135 L Potassium 4.1 Chloride 102 Carbon Dioxide 16 L Anion Gap 17 H BUN 34 H Creatinine 3.10 H Estim Creat Clear Calc 16 Estimated GFR 14 L Glucose 146 H Lactic Acid 5.7 H* 5.7 H* Calcium Phosphorus Magnesium Total Bilirubin AST ALT Alkaline Phosphatase NT-Pro-B Natriuret Pep Total Protein Albumin Lipase TSH (Reflex) Urine Color Urine Appearance Urine pH Ur Specific [place] Urine Protein Urine Glucose (UA) Urine Ketones Ur Blood (Man) Urine Nitrate Urine Bilirubin Urine Urobilinogen Add Ur Microanalysis Leukocyte Esterase Rfl Urine RBC Urine WBC Ur Squamous Epith Cells Urine Bacteria Urine Casts Nasal MRSA (PCR) 01/17/24 01/17/24 01/18/24 19:56 23:43 03:31 WBC 39.4 H RBC 3.09 L Hgb 10.2 L Hct 30.6 L MCV 99.0 MCH 33.0 MCHC 33.3 RDW 14.0 Plt Count 71 L MPV 11.1 H Immature Gran % (Auto) Not Reportable Neut % (Auto) Not Reportable Lymph % (Auto) Not Reportable [place] % (Auto) Not Reportable Eos % (Auto) Not Reportable Baso % (Auto) Not Reportable Lymph # (Auto) Not Reportable [place] # (Auto) Not Reportable Eos # (Auto) Not Reportable Baso # (Auto) Not Reportable Abs Immat Gran (auto) Not Reportable Absolute Neuts (auto) Not Reportable Absolute Nucleated RBC Not Reportable Total Counted 100 Neutrophils % (Manual) 82 H Band Neutrophils % 7 H Lymphocytes % (Manual) 6 L Monocytes % (Manual) 5 Eosinophils % (Manual) Metamyelocytes % Nucleated RBC % Not Reportable Abs Neuts (Manual) 35.06 H Abs Lymphs (Manual) 2.36 Abs Monocytes (Manual) 1.97 H Absolute Eos (Manual) Nucleated RBCs Platelet Estimate Decreased % Immature Plt Fraction 9.6 Schistocytes None seen PT INR APTT Puncture Site Artline ABG pH 7.258 L* ABG pCO2 35.5 ABG pO2 358.4 H ABG PO2/FiO2 Ratio 3.98 ABG HCO3 15.5 L ABG O2 Saturation 99.7 ABG O2 Content 18.1 ABG Base Excess -10.7 A-a Gradient 246.9 Oxyhemoglobin 99.4 Carboxyhemoglobin 0.3 Methemoglobin 0.1 Reduced Hemoglobin 0.2 Total Hemoglobin 12.3 O2 Delivery Device Ventilator O2 Liters/Min Not Reportable Minute Volume Not Reportable Vent Rate 22 Vent Mode Cmv FiO2 90 Tidal Volume 350 PEEP 5 Peak Inspir Pressure Not Reportable Pressure Support Not Reportable Sodium 143 Potassium 4.4 Chloride 94 L Carbon Dioxide 27 Anion Gap 22 H BUN 36 H Creatinine 3.40 H Estim Creat Clear Calc 14 Estimated GFR 13 L Glucose 158 H Lactic Acid Cancelled 11.6 H* Calcium 7.2 L 6.0 L Phosphorus 6.0 H Magnesium 1.7 1.7 Total Bilirubin 1.3 AST 48 H ALT 25 Alkaline Phosphatase 83 NT-Pro-B Natriuret Pep Total Protein 5.0 L Albumin 2.8 L Lipase TSH (Reflex) 1.010 Urine Color Urine Appearance Urine pH Ur Specific [place] Urine Protein Urine Glucose (UA) Urine Ketones Ur Blood (Man) Urine Nitrate Urine Bilirubin Urine Urobilinogen Add Ur Microanalysis Leukocyte Esterase Rfl Urine RBC Urine WBC Ur Squamous Epith Cells Urine Bacteria Urine Casts Nasal MRSA (PCR) 01/18/24 03:44 WBC RBC Hgb Hct MCV MCH MCHC RDW Plt Count MPV Immature Gran % (Auto) Neut % (Auto) Lymph % (Auto) [place] % (Auto) Eos % (Auto) Baso % (Auto) Lymph # (Auto) [place] # (Auto) Eos # (Auto) Baso # (Auto) Abs Immat Gran (auto) Absolute Neuts (auto) Absolute Nucleated RBC Total Counted Neutrophils % (Manual) Band Neutrophils % Lymphocytes % (Manual) Monocytes % (Manual) Eosinophils % (Manual) Metamyelocytes % Nucleated RBC % Abs Neuts (Manual) Abs Lymphs (Manual) Abs Monocytes (Manual) Absolute Eos (Manual) Nucleated RBCs Platelet Estimate % Immature Plt Fraction Schistocytes PT INR APTT Puncture Site Artline ABG pH 7.219 L* ABG pCO2 39.0 ABG pO2 189.3 H ABG PO2/FiO2 Ratio 2.91 ABG HCO3 15.6 L ABG O2 Saturation 99.1 ABG O2 Content 16.1 ABG Base Excess -11.4 A-a Gradient 231.7 Oxyhemoglobin 98.9 Carboxyhemoglobin 0.3 Methemoglobin 0.0 Reduced Hemoglobin 0.8 Total Hemoglobin 11.3 L O2 Delivery Device Ventilator O2 Liters/Min Not Reportable Minute Volume Not Reportable Vent Rate 24 Vent Mode Cmv FiO2 65 Tidal Volume 350 PEEP 8 Peak Inspir Pressure Not Reportable Pressure Support Not Reportable Sodium Potassium Chloride Carbon Dioxide Anion Gap BUN Creatinine Estim Creat Clear Calc Estimated GFR Glucose Lactic Acid Calcium Phosphorus Magnesium Total Bilirubin AST ALT Alkaline Phosphatase NT-Pro-B Natriuret Pep Total Protein Albumin Lipase TSH (Reflex) Urine Color Urine Appearance Urine pH Ur Specific [place] Urine Protein Urine Glucose (UA) Urine Ketones Ur Blood (Man) Urine Nitrate Urine Bilirubin Urine Urobilinogen Add Ur Microanalysis Leukocyte Esterase Rfl Urine RBC Urine WBC Ur Squamous Epith Cells Urine Bacteria Urine Casts Nasal MRSA (PCR) Post-procedural complaints: none Patient Feedback: Patient satisfied with anesthetic care.
[2024-01-18] MEDS: CALCIUM GLUC 2,000 MG/NS 100ML 2,000 MG/100 ML BAG 100 MG IVPB (08:35)
[2024-01-18 08:57] LABS: Alveolar/Arterial O2 Gradient 209.6 mmHg; Base Excess ABG -17.9 mEq/l (+/-2.0); Fractional Inspired Oxygen 70 %; HCO3 ABG 10.6 mEq/l (22.0-26.0); Oxygen Content ABG 15.9 %vol (16.0-22.0); Oxygen Saturation ABG 99.3 % (95.0-100.0); Oxyhemoglobin 99.1 % THb (90.0-100.0); PCO2 ABG 34.8 mmHg (35.0-45.0); PO2 ABG 252.1 mmHg (80.0-100.0)
[2024-01-18 08:59] LABS: Site Drawn ARTLINE; pH ABG 7.103 (7.350-7.450)
[2024-01-18 09:00] LABS: Arterial Blood Gas PEEP 8 cmH2O; Arterial Blood Gas Tidal Volume 400 ml; Arterial Blood Gas Vent Mode CMV; Arterial Blood Gas Ventilator rate 28 /MIN; Device VENTILATOR
--- NOTE | 2024-01-18 09:03 | P.CONNP_ITS ---
Assessment and Plan Assessment and plan (1) Acute kidney injury: Code(s): N17.9 - Acute kidney failure, unspecified Status: Acute Assessment and Plan: * due to ATN with multifactorial etiology: * hemodynamic instability/shock * infection/sepsis * BP medications prior to admission * diuretics prior to admission * obstructive uropathy * nephrolithiasis * s/p adequate fluid resuscitation * now requiring significant vasopressor support * check urine studies and CPK * remains at risk for REGISTERED PHARMACY TECHNICIAN/dialysis * follow repeat labs and UOP (2) Septic shock: Code(s): A41.9 - Sepsis, unspecified organism; R65.21 - Severe sepsis with septic shock Status: Acute Assessment and Plan: * due to pyelonephritis in association with obstructing right UPJ stone * s/p IVF resuscitation and now requiring vasopressor support * on levophed, vasopressin, claudio-synephrine and epinephrine * s/p cystoscopy, right retrograde pyelogram, right ureteral stent placement on 01/16 * on bicarb infusion due to severe metabolic acidosis * follow culture data * on IV antibiotics (3) Acute respiratory failure: Code(s): J96.00 - Acute respiratory failure, unspecified whether with hypoxia or hypercapnia Status: Acute Assessment and Plan: * secondary to metabolic acidosis and severe septic shock * continue ventilator support * wean when more stable (4) Metabolic acidosis: Code(s): E87.20 - Acidosis, unspecified Status: Acute Assessment and Plan: * due to AMARIS/ARF and severelactic acidosis * s/p multiple doses of sodium bicarb IV pushes * currently on bicarb infusion * follow trend of lactic acid (5) Pyelonephritis: Code(s): N12 - Tubulo-interstitial nephritis, not specified as acute or chronic Status: Acute Assessment and Plan: * as evidence by symptoms and imaging findings CT scan of the abdomen and pelvis with right UPJ stone with hydronephrosis and possible pyelonephritis given UA findings * on antibiotic therapy * s/p cystoscopy, right retrograde pyelogram, right ureteral stent placement on 01/16 (6) Right ureteral stone: Code(s): N20.1 - Calculus of ureter Status: Acute Assessment and Plan: * Urology following * see #4 Greater than 20 min was spent in reviewing electronic medical record as well as discussion with physicians involved in the patient's care given her critical illness at this time. She remains at high risk for renal replacement therapy/dialysis although if she needs it and she remains hemodynamically unstable, she will likely require transfer to a tertiary care facility where they can perform continuous renal replacement therapy. I will continue to follow the patient with you while she remains hospitalized to make further recommendations as deemed necessary. Thank you for allowing me to participate in care this patient. History of Present Illness Reason for Consult Consult date: 01/18/24 Reason for consult: acute renal failure Chief Complaint Chief complaint: Kidney stone History of Present Illness Narrative: All the information that I have obtained is from review of the electronic medical record as well as discussion with the physician/nurses involved in the patient's care as the patient is unable to provide any history due to her current status of being intubated and on mechanical ventilation. The patient is a 78-year-old female with a past medical history as outlined below who presented to [facility] Emergency room via EMS for further evaluation of generalized weakness. Apparently, the patient had not been feeling well for last one or two days with symptoms of fatigue, profound weakness, nausea, and loose stools. Early on the day of admission, she started having abdominal pain that was somewhat generalized in difficult to localize. It was apparently described as a severe spasming that would not go away. Given the persistence of the symptoms, she called EMS and she was transported to the ER for further assessment. Workup and evaluation emergency room demonstrated the patient being afebrile but she was tachypneic and tachycardic. Blood pressure is on the lower end of normal and actually trended down words while she was in the emergency room. Routine labs were significant for an elevated white blood cell count with left shift, metabolic acidosis with a CO2 of 13, acute kidney injury with a BUN of three when a creatinine of 2.9, and a BNP of 83 40. Her urinalysis was highly suggestive of urinary tract infection with turbid appearance, 2+ protein, 3+ glucose, 3+ blood, 3+ leukocyte esterase, 21-50 red blood cells, greater than 100 white blood cells as well as 4+ bacteria. She received aggressive IV fluid resuscitation for her hypotension and a subsequent CT scan of the abdomen pelvis demonstrated 11 mm stone at the right ureteropelvic junction with mild right hydronephrosis. As rib load pressure failed to significantly improve with IV fluids, she was started on low-dose Levophed and after appropriate cultures were obtained, was started on IV ciprofloxacin with your Urology consultation and subsequent transfer to the OR for intervention regarding her nephrolithiasis. She underwent cystoscopy, right retrograde pyelogram and right ureteral stent placement by Dr. Gudino. due to her ongoing hemodynamic instability, a central line was placed by anesthesiology and her Levophed was titrated up. She was subsequently transferred to the ICU postoperatively due to her critical status. by the time of her arrival to the ICU, she remained tachypneic, tachycardic and hypotensive despite current vasopressor therapy. Vasopressin was added in addition to Levophed in effort to optimize her mean arterial pressure. She developed a fever of 103.1 degrees and repeat labs demonstrated worsening lactic acidosis in conjunction with a rising creatinine. She refused BiPAP therapy so was placed on Vapotherm which did seem to alleviate her respiratory issues. Unfortunately, a few hours later, she became more unstable with worsening tachycardia, tachypnea, and hypotension and she required intubation and mechanical ventilation due to impending respiratory failure. Her IV antibiotics were adjusted due to concerns of overt sepsis. Further vasopressor support was instituted including Claudio-Synephrine and epinephrine due to her hemodynamic instability and shock. Unfortunately, repeat labs this morning show worsening metabolic acidosis in association with lactic acidosis despite her multitude of vasopressor therapies. Her renal function has worsened and she is almost anuric at this time. Renal consultation was requested due to her acute kidney injury/acute renal failure. From review of her records, the patient's baseline renal function is well within normal limits but as noted above, her renal function was already compromised by the time of her presentation and has worsened in the last 24 hr in association with a decline in urine output. Her acidosis has also signific antly deteriorated likely due to her worsening lactic acidosis with a concern for possible bowel ischemia. Despite her worsening creatinine and declining urine output, she has no critical electrolyte abnormalities at this time. Currently, the patient remains hemodynamically Emeka unstable and remains intubated and on mechanical ventilation. Review of Systems Review of Systems: As per HPI. [facility] Past Medical History Medical History Arthritis Breast cancer Bronchitis Chronic back pain Hyperlipidemia Hypertension Pneumonia Sarcoma right knee Seasonal allergies Surgical History Surgical History History of arthroplasty of both hips History of arthroplasty of both knees History of arthroplasty of both shoulders History of cholecystectomy History of lumpectomy of right breast Family History Family History Sibling Heart disease Hypertension Mother Heart disease Hypertension Father Heart disease CHF (congestive heart failure) Social History Social History Social History: Surrogate medical decision maker: [place] Driscoll, spouse. Code status: Full code. Smoking status: Never smoker Alcohol intake: never Alcohol use details: Rare alcohol use in moderation. Substance use: never Substance use type: opiates Other substance usage details: for chronic back pain Do You Feel Safe in your Home?: Yes Lack of Transportation: No Lack of Food: Never True Current Housing: I Have Housing Concerned About Future Housing: No Difficulty Paying Gas/Electric Bills: No Difficulty Paying for Meds: No Currently Unemployed: No Education: Decline to Answer Difficulty w/ Childcare or Family Care: No Living arrangements: with family Spiritual care concerns: No Meds Home Medications and Allergies Home Medications Medication Instructions Recorded Confirmed Type atenolol 100 mg tablet 100 mg PO DAILY 09/06/23 01/17/24 History atorvastatin 10 mg tablet 10 mg PO DAILY 09/06/23 01/17/24 History cholecalciferol (vitamin D3) 1,250 1,250 mcg PO MONTHLY 09/06/23 01/17/24 History mcg (50,000 unit) capsule duloxetine 60 mg capsule,delayed 60 mg PO DAILY 09/06/23 01/17/24 History release nabumetone 750 mg tablet 750 mg PO Q12H 09/06/23 01/17/24 History ondansetron HCl 4 mg tablet 4 mg PO Q6H PRN Nausea 09/06/23 01/17/24 History pantoprazole 40 mg tablet,delayed 40 mg PO DAILY 09/06/23 01/17/24 History release spironolactone 25 mg tablet 25 mg PO DAILY 09/06/23 01/17/24 History tamoxifen 20 mg tablet 20 mg PO DAILY 09/06/23 01/17/24 History Lactobacillus rhamnosus GG 10 1 cap PO HS 01/17/24 01/17/24 History billion cell capsule (Culturelle) cholecalciferol (vitamin D3) 50 2,000 unit PO DAILY 01/17/24 01/17/24 History mcg (2,000 unit) tablet (Vitamin D3) cranberry extract 500 mg capsule 500 mg PO DAILY 01/17/24 01/17/24 History cyanocobalamin (vitamin B-12) 2,500 mcg PO 2XW 01/17/24 01/17/24 History 2,500 mcg tablet empagliflozin 10 mg tablet 10 mg PO DAILY 01/17/24 01/17/24 History (Jardiance) furosemide 20 mg tablet 20 mg PO DAILY 01/17/24 01/17/24 History oxycodone 5 mg tablet 5 mg PO Q6-8H PRN Pain (Scale 01/17/24 01/17/24 History Score 7-10) sumatriptan succinate 50 mg tablet 50 mg PO Q8H PRN Headache 01/17/24 01/17/24 History Allergies Allergy/AdvReac Type Severity Reaction Status Date / Time acetaminophen Allergy Hives Verified 01/17/24 08:59 [From Darvocet-N 100] adhesive tape Allergy Rash Verified 01/17/24 08:59 amoxicillin [From Augmentin] Allergy Rash Verified 01/17/24 08:59 azithromycin Allergy Hives Verified 01/17/24 08:59 Cephalosporins Allergy Rash Verified 01/17/24 08:59 clarithromycin Allergy Hives Verified 01/17/24 08:59 clavulanic acid Allergy Rash Verified 01/17/24 08:59 [From Augmentin] doxycycline Allergy Hives Verified 01/17/24 08:59 erythromycin base Allergy Hives Verified 01/17/24 08:59 Iodinated Contrast Media Allergy Hives Verified 01/17/24 08:59 iodine Allergy Hives Verified 01/17/24 08:59 levofloxacin Allergy Rash Verified 01/17/24 08:59 mold Allergy Congested Verified 01/17/24 08:59 morphine Allergy Hives Verified 01/17/24 08:59 propoxyphene Allergy Hives Verified 01/17/24 08:59 [From Darvocet-N 100] Sulfa (Sulfonamide Allergy Hives Verified 01/17/24 08:59 Antibiotics) aspirin AdvReac Gastrointestinal Verified 01/17/24 12:47 Upset ibuprofen AdvReac Gastrointestinal Verified 01/17/24 12:47 Upset lactase AdvReac Gastrointestinal Verified 01/17/24 08:59 Upset meperidine AdvReac Gastrointestinal Verified 01/17/24 12:47 Upset paroxetine AdvReac Gastrointestinal Verified 01/17/24 12:47 Upset pentazocine AdvReac Gastrointestinal Verified 01/17/24 12:47 Upset Vital Signs Vital Signs Temp Pulse Resp BP Pulse Ox O2 Del Method O2 Flow Rate 01/18/24 09:00 99.5 F 105 H 29 H 129/78 100 01/18/24 08:00 99.5 F 107 H 28 H 105/64 97 01/18/24 08:00 111 H 28 H 01/18/24 08:00 111 H 28 H 01/18/24 08:00 111 H 99/66 L 01/18/24 08:00 107 H 99/66 L 01/18/24 08:00 110 H 99/59 L 01/18/24 07:35 107 H 96 Mechanical Ventilation 01/18/24 07:49 107 H 102/65 01/18/24 07:49 107 H 102/64 01/18/24 06:00 110 H 01/18/24 04:00 113 H 01/18/24 06:18 111 H 108/63 01/18/24 06:18 104 H 108/65 01/18/24 06:00 99.3 F 109 H 28 H 109/66 97 01/18/24 05:45 99.3 F 109 H 28 H 109/66 97 01/18/24 05:30 99.3 F 107 H 28 H 112/68 97 01/18/24 05:15 99.5 F 110 H 28 H 106/67 97 01/18/24 06:00 109 H 28 H 01/18/24 06:00 109 H 28 H 01/18/24 06:00 109 H 109/66 01/18/24 06:00 109 H 109/66 01/18/24 06:00 109 H 109/66 01/18/24 06:00 109 H 109/66 01/18/24 05:00 109 H 98 Mechanical Ventilation 01/18/24 03:00 109 H 98 Mechanical Ventilation 01/18/24 05:00 99.7 F H 109 H 29 H 106/66 96 01/18/24 04:45 99.8 F H 112 H 29 H 103/66 93 01/18/24 04:30 100 F H 113 H 29 H 103/66 97 01/18/24 04:15 100 F H 115 H 28 H 99/64 L 97 01/18/24 05:13 109 H 106/67 01/18/24 05:13 109 H 107/67 01/18/24 04:00 100 F H 113 H 29 H 102/67 99 01/18/24 04:00 01/18/24 04:00 113 H 29 H 99 Mechanical Ventilation 01/18/24 04:00 114 H 24 H 01/18/24 04:00 114 H 24 H 01/18/24 04:00 113 H 102/67 01/18/24 04:00 113 H 103/67 01/18/24 04:00 114 H 102/66 01/18/24 04:00 114 H 103/67 01/18/24 03:50 111 H 99/66 L 01/18/24 03:39 109 H 96/64 L 01/18/24 03:30 99.9 F H 101 H 28 H 115/71 98 01/18/24 03:15 99.9 F H 108 H 30 H 104/64 98 01/18/24 03:34 98 96/63 L 01/18/24 03:28 101 H 115/72 01/18/24 03:23 104 H 96/65 L 01/18/24 03:15 109 H 102/64 01/18/24 03:14 106 H 104/66 01/18/24 03:05 104 H 98/64 L 01/18/24 03:03 106 H 30 H 01/18/24 03:00 99.8 F H 104 H 27 H 98/63 L 99 01/18/24 02:45 99.7 F H 100 24 H 97/64 L 99 01/18/24 03:00 104 H 98/63 L 01/18/24 02:49 101 H 24 H 01/18/24 02:30 99.7 F H 98 24 H 99/66 L 98 01/18/24 02:32 99 24 H 01/18/24 02:25 98 92/58 L 01/18/24 02:17 99 24 H 01/18/24 02:15 99.7 F H 99 24 H 95/60 L 100 01/18/24 02:14 100 95/59 L 01/18/24 02:11 102 H 24 H 08/21/24 02:00 99.7 F H 100 24 H 95/60 L 99 01/18/24 02:00 100 01/18/24 02:00 100 24 H 01/18/24 02:00 100 95/60 L 01/18/24 02:00 100 24 H 01/18/24 02:00 100 95/60 L 01/18/24 02:00 100 95/60 L 01/18/24 00:00 106 H 01/18/24 00:00 01/17/24 22:00 100 High Flow Nasal Cannula 45 01/18/24 01:00 99.3 F 106 H 24 H 105/61 99 01/18/24 00:00 99.3 F 106 H 24 H 110/64 100 01/18/24 00:00 106 H 24 H 100 Mechanical Ventilation 01/18/24 00:44 108 H 26 H 01/18/24 00:41 108 H 105/63 01/18/24 00:40 108 H 104/62 01/18/24 00:37 107 H 26 H 01/18/24 00:23 98 100 Mechanical Ventilation 01/18/24 00:00 107 H 22 H 01/18/24 00:00 107 H 108/63 01/18/24 00:00 107 H 22 H 01/18/24 00:00 107 H 108/63 01/17/24 23:00 101 H 110/60 01/18/24 00:00 107 H 108/63 01/18/24 00:16 107 H 24 H 01/18/24 00:13 107 H 106/62 01/17/24 23:45 99.3 F 108 H 22 H 109/62 100 01/17/24 23:30 99.4 F 108 H 22 H 109/61 100 01/17/24 23:15 99.5 F 102 H 22 H 113/64 100 01/17/24 23:00 99.5 F 108 H 22 H 110/61 100 01/17/24 22:45 99.6 F 106 H 18 109/66 100 01/17/24 22:30 99.6 F 105 H 26 H 101/60 95 01/17/24 22:16 99.7 F H 96 35 H 91/64 L 93 01/17/24 23:44 107 H 114/63 01/17/24 22:00 106 H 01/17/24 20:00 106 H 01/17/24 22:32 101 H 100 Mechanical Ventilation 01/17/24 22:00 99.7 F H 106 H 32 H 95/56 L 98 01/17/24 21:30 99.7 F H 106 H 29 H 95/55 L 98 01/17/24 23:00 105 H 22 H 01/17/24 22:50 103 H 22 H 01/17/24 22:50 104 H 22 H 01/17/24 22:20 120 H 92/64 L 01/17/24 22:19 105 H 100/59 L 01/17/24 22:00 106 H 95/56 L 01/17/24 22:15 99.7 F H 133 H 34 H 87/62 L 92 01/17/24 22:00 106 H 95/56 L 01/17/24 21:15 99.7 F H 105 H 28 H 92/57 L 92 01/17/24 21:00 99.7 F H 106 H 27 H 95/56 L 98 01/17/24 20:45 99.7 F H 106 H 26 H 97/59 L 100 01/17/24 20:30 99.7 F H 107 H 24 H 98/58 L 100 01/17/24 20:15 99.8 F H 106 H 26 H 97/55 L 100 01/17/24 20:00 99.8 F H 106 H 24 H 100/60 100 01/17/24 20:00 100 High Flow Nasal Cannula 45 01/17/24 20:00 105 H 103/61 01/17/24 20:21 108 H 103/60 01/17/24 19:45 106 H 98/60 L 01/17/24 19:45 106 H 98/60 L 01/17/24 19:45 106 H 98/60 L 01/17/24 19:59 100 High Flow Therapy with Na 45 01/17/24 19:30 100 High Flow Therapy with Na 45 01/17/24 18:40 97 101/57 L 01/17/24 18:10 101 H 93/56 L 01/17/24 17:45 113 H 90/55 L 01/17/24 17:15 106 H 91/54 L 01/17/24 17:00 103 H 89/52 L 01/17/24 16:45 104 H 89/53 L 01/17/24 16:30 106 H 104/59 L 01/17/24 16:15 108 H 120/65 01/17/24 16:00 111 H 128/75 01/17/24 15:45 102 H 99/62 L 01/17/24 17:30 103 H 88/53 L 01/17/24 18:25 103 H 99 High Flow Therapy with Na 45 01/17/24 18:00 101.5 F H 103 H 31 H 83/52 L 100 01/17/24 18:00 103 H 01/17/24 16:00 111 H 37 H 100 High Flow Nasal Cannula 15 01/17/24 16:00 111 H 01/17/24 16:00 100.9 F H 111 H 37 H 128/75 100 01/17/24 15:55 97 High Flow Nasal Cannula 15 01/17/24 17:51 101.6 F H 01/17/24 16:58 103.1 F H 01/17/24 15:37 99 82/55 L 01/17/24 15:36 98 82/55 L 01/17/24 13:26 105 H 32 H 94/58 L 100 01/17/24 13:20 104 H 01/17/24 13:19 103 H 31 H 78/41 L 90 01/17/24 13:02 99 76/46 L 01/17/24 12:06 95 25 H 75/49 L 94 01/17/24 11:01 97 20 91/46 L 01/17/24 10:36 97.6 F 102 H 20 126/105 H 95 01/17/24 09:51 99 20 87/45 L 93 Exam Narrative: GENERAL APPEARANCE: elderly female intubated/sedated and on mechanical ventilation HEENT: normocephalic, atraumatic, normal conjunctiva and sclera, nares patient NECK: no lymphadenopathy, thyromegaly, or JVD MOUTH: normal lips, teeth, and gums; ETT in plce CARDIOVASCULAR: tachycardic RRR, normal S1 and S2, no rub RESPIRATORY: coarse with crackles and scattered wheezing ABDOMEN: soft, nontender, nondistended, hypoactive sounds present EXTREMITIES: bilateral 1+ edema noted NEUROLOGICAL: unable to assess SKIN: purple discoloration in finger tips, feet, and toes Results Lab Results 01/21/24 06:20 01/21/24 06:20 Lab results: Most recent lab results ABG pH 7.103 (7.350-7.450) L* 01/18/24 08:55 ABG pCO2 34.8 mmHg (35.0-45.0) L 01/18/24 08:55 ABG pO2 252.1 mmHg (80.0-100.0) H 01/18/24 08:55 ABG HCO3 10.6 mEq/l (22.0-26.0) L 01/18/24 08:55 ABG O2 Saturation 99.3 % (95.0-100.0) 01/18/24 08:55 Calcium 6.0 mg/dL (8.4-10.2) L 01/18/24 03:31 Phosphorus 6.0 mg/dL (2.5-4.5) H 01/18/24 03:31 Magnesium 1.7 mg/dL (1.6-2.3) 01/18/24 03:31
[2024-01-18] MEDS: PERFLUTREN LIPID MICROSPHERES 1.5 ML VIAL DILUTED TO 10 ML TOTAL VOLUME IV PUSH (09:20)
[2024-01-18 10:02] LABS: Lactic Acid Reflex 13.8 mmol/L (0.7-2.0)
--- NOTE | 2024-01-18 10:37 | IVDEFINITY ---
Prior to administration of IV Definity the patient was educated on the risks and benefits of the imaging enhancing agent including potential adverse side effects. The patient verbalized understanding. Allergies were verified. No exclusion criteria were identified and at least one of the following inclusion criteria were met: 1) physician request, 2) patient technically difficult to image (per the [place] [employer] guidelines of two or more segments not discernable within the apical view), or 3) questionable left ventricular function. ?
[2024-01-18 11:52] LABS: Glucose Point of Care 149 mg/dl (65-105)
[2024-01-18 12:37] LABS: Reflex Lactic Acid Yes or No Add Lactic
--- NOTE | 2024-01-18 13:15 | P.CONS_ITS ---
Assessment and Plan Assessment and plan (1) Metabolic acidosis: Code(s): E87.20 - Acidosis, unspecified Status: Acute Assessment and Plan: Patient has a severe metabolic acidosis and lactic acid level of approximately 13. This is most likely due to ongoing bowel ischemia if not necrosis. Patient is not stable enough to take to the operating room for exploration or even to take to the CT scanner to get a CT with IV contrast. (2) Septic shock: Code(s): A41.9 - Sepsis, unspecified organism; R65.21 - Severe sepsis with septic shock Status: Acute Assessment and Plan: Initially due to urosepsis and obstructing kidney stone with hydronephrosis which has progressed due to likely bowel ischemia from the use of supportive pressors at high doses she was unavoidable due to her hypotension. Patient is now DNR but family is gathering to make further decisions. (3) Urinary tract infection: Code(s): N39.0 - Urinary tract infection, site not specified Status: Acute Assessment and Plan: Urology has placed to ureteral stent to relieve the obstruction. (4) Ischemic bowel disease: Code(s): K55.9 - Vascular disorder of intestine, unspecified Status: Acute Assessment and Plan: patient likely has irreversible ischemic if not necrotic bowel causing severe metabolic acidosis and ongoing hypotension and sepsis. She is not stable enough to take to the CT scanner to diagnosis ischemic or necrotic bowel however all of the clinical indicators suggest that this is the problem. Had a long discussion with the patient's family and explained the problem and the ongoing ischemia which is not likely reversible given the need for high-dose pressors. The sepsis will not resolve without removing the source which is being contributed to by the ischemic bowel. This has resulted in a spiraling loop of conditions which will eventually result in multi-system organ failure and almost assuredly mortality for this patient. She is not stable no state to an operating room as I believe she would likely survive the insult of a laparotomy and extensive bow el resection. The patient's family understands the grave situation and I have answered all their questions. Overall I would recommend comfort measures for this patient. HPI Data of Consult Date/Time: 01/18/24 13:15 Requesting Physician: Ghanshyam Bowen MD Primary Care Provider: Sanjay Castro Consult Narrative Reason for consult: Sepsis, ischemic bowel Narrative: Ju Driscoll is a 78 year old female Who presents to the emergency room yesterday after being brought in by her because she was weak and having worsening lower abdominal pain. He said that she had diarrhea the day prior to coming to the emergency room. In the ER she was found to have urosepsis with bacteria and leuko site esterase in her urine. She was also found to have obstructing right kidney stone causing right hydronephrosis. She had a white blood cell [id number]. she was then taken to the operating room where Dr. Gudino placed a right ureteral stent to relieve the obstruction. Postoperatively she had hypotension hypoxia and was transferred to the intensive care unit. She eventually was intubated and overnight she has had increasing pressor support needs and is now on 4 pressors and maxed out. Lactic acid level increased from 8 to 13 overnight. PH is 7.1 despite multiple boluses of bicarb. She has acute renal failure with a creatinine of 3.6 and minimal urine output. She is intubated and sedated. Patient's family is at the bedside. Review of Systems Review of Systems: The remainder of the review of systems to include constitutional, HEENT, cardiovascular, respiratory, GI, , integumentary, musculoskeletal, endocrine, immunologic, hematologic, psychiatric, and neurologic are all negative except for which is mentioned above in the HPI. [facility] Past Medical History Medical History Arthritis Breast cancer Bronchitis Chronic back pain Hyperlipidemia Hypertension Pneumonia Sarcoma right knee Seasonal allergies Surgical History Surgical History History of arthroplasty of both hips History of arthroplasty of both knees History of arthroplasty of both shoulders History of cholecystectomy History of lumpectomy of right breast Family History Family History Sibling Heart disease Hypertension Mother Heart disease Hypertension Father Heart disease CHF (congestive heart failure) Social History Social History Social History: Surrogate medical decision maker: Fausto Driscoll, spouse. Code status: Full code. Smoking status: Never smoker Alcohol intake: never Alcohol use details: Rare alcohol use in moderation. Substance use: never Substance use type: opiates Other substance usage details: for chronic back pain Do You Feel Safe in your Home?: Yes Lack of Transportation: No Lack of Food: Never True Current Housing: I Have Housing Concerned About Future Housing: No Difficulty Paying Gas/Electric Bills: No Difficulty Paying for Meds: No Currently Unemployed: No Education: Decline to Answer Difficulty w/ Childcare or Family Care: No Living arrangements: with family Spiritual care concerns: No Meds Home Medications and Allergies Home Medications Medication Instructions Recorded Confirmed Type atenolol 100 mg tablet 100 mg PO DAILY 09/06/23 01/17/24 History atorvastatin 10 mg tablet 10 mg PO DAILY 09/06/23 01/17/24 History cholecalciferol (vitamin D3) 1,250 1,250 mcg PO MONTHLY 09/06/23 01/17/24 History mcg (50,000 unit) capsule duloxetine 60 mg capsule,delayed 60 mg PO DAILY 09/06/23 01/17/24 History release nabumetone 750 mg tablet 750 mg PO Q12H 09/06/23 01/17/24 History ondansetron HCl 4 mg tablet 4 mg PO Q6H PRN Nausea 09/06/23 01/17/24 History pantoprazole 40 mg tablet,delayed 40 mg PO DAILY 09/06/23 01/17/24 History release spironolactone 25 mg tablet 25 mg PO DAILY 09/06/23 01/17/24 History tamoxifen 20 mg tablet 20 mg PO DAILY 09/06/23 01/17/24 History Lactobacillus rhamnosus GG 10 1 cap PO HS 01/17/24 01/17/24 History billion cell capsule (Culturelle) cholecalciferol (vitamin D3) 50 2,000 unit PO DAILY 01/17/24 01/17/24 History mcg (2,000 unit) tablet (Vitamin D3) cranberry extract 500 mg capsule 500 mg PO DAILY 01/17/24 01/17/24 History cyanocobalamin (vitamin B-12) 2,500 mcg PO 2XW 01/17/24 01/17/24 History 2,500 mcg tablet empagliflozin 10 mg tablet 10 mg PO DAILY 01/17/24 01/17/24 History (Jardiance) furosemide 20 mg tablet 20 mg PO DAILY 01/17/24 01/17/24 History oxycodone 5 mg tablet 5 mg PO Q6-8H PRN Pain (Scale 01/17/24 01/17/24 History Score 7-10) sumatriptan succinate 50 mg tablet 50 mg PO Q8H PRN Headache 01/17/24 01/17/24 History Allergies Allergy/AdvReac Type Severity Reaction Status Date / Time acetaminophen Allergy Hives Verified 01/17/24 08:59 [From Darvocet-N 100] adhesive tape Allergy Rash Verified 01/17/24 08:59 amoxicillin [From Augmentin] Allergy Rash Verified 01/17/24 08:59 azithromycin Allergy Hives Verified 01/17/24 08:59 Cephalosporins Allergy Rash Verified 01/17/24 08:59 clarithromycin Allergy Hives Verified 01/17/24 08:59 clavulanic acid Allergy Rash Verified 01/17/24 08:59 [From Augmentin] doxycycline Allergy Hives Verified 01/17/24 08:59 erythromycin base Allergy Hives Verified 01/17/24 08:59 Iodinated Contrast Media Allergy Hives Verified 01/17/24 08:59 iodine Allergy Hives Verified 01/17/24 08:59 levofloxacin Allergy Rash Verified 01/17/24 08:59 mold Allergy Congested Verified 01/17/24 08:59 morphine Allergy Hives Verified 01/17/24 08:59 propoxyphene Allergy Hives Verified 01/17/24 08:59 [From Darvocet-N 100] Sulfa (Sulfonamide Allergy Hives Verified 01/17/24 08:59 Antibiotics) aspirin AdvReac Gastrointestinal Verified 01/17/24 12:47 Upset ibuprofen AdvReac Gastrointestinal Verified 01/17/24 12:47 Upset lactase AdvReac Gastrointestinal Verified 01/17/24 08:59 Upset meperidine AdvReac Gastrointestinal Verified 01/17/24 12:47 Upset paroxetine AdvReac Gastrointestinal Verified 01/17/24 12:47 Upset pentazocine AdvReac Gastrointestinal Verified 01/17/24 12:47 Upset Vital Signs Vital Signs - 24 hr 01/17/24 13:19 01/17/24 13:20 01/17/24 13:26 Temperature Pulse Rate 103 H 104 H 105 H Respiratory Rate 31 H 32 H Blood Pressure 78/41 L 94/58 L Pulse Oximetry 90 100 Oxygen Delivery Oxygen Flow Rate Fraction of Inspired Oxygen 01/17/24 15:36 01/17/24 15:37 01/17/24 16:58 Temperature 39.5 C H Pulse Rate 98 99 Respiratory Rate Blood Pressure 82/55 L 82/55 L Pulse Oximetry Oxygen Delivery Oxygen Flow Rate Fraction of Inspired Oxygen 01/17/24 17:51 01/17/24 15:55 01/17/24 16:00 Temperature 38.7 C H 38.3 C H Pulse Rate 111 H Respiratory Rate 37 H Blood Pressure 128/75 Pulse Oximetry 97 100 Oxygen Delivery High Flow Nasal Cannula Oxygen Flow Rate 15 Fraction of Inspired Oxygen 01/17/24 16:00 01/17/24 16:00 01/17/24 18:00 Temperature Pulse Rate 111 H 111 H 103 H Respiratory Rate 37 H Blood Pressure Pulse Oximetry 100 Oxygen Delivery High Flow Nasal Cannula Oxygen Flow Rate 15 Fraction of Inspired Oxygen 01/17/24 18:00 01/17/24 18:25 01/17/24 17:30 Temperature 38.6 C H Pulse Rate 103 H 103 H 103 H Respiratory Rate 31 H Blood Pressure 83/52 L 88/53 L Pulse Oximetry 100 99 Oxygen Delivery High Flow Therapy with Na Oxygen Flow Rate 45 Fraction of Inspired Oxygen 100 01/17/24 15:45 01/17/24 16:00 01/17/24 16:15 Temperature Pulse Rate 102 H 111 H 108 H Respiratory Rate Blood Pressure 99/62 L 128/75 120/65 Pulse Oximetry Oxygen Delivery Oxygen Flow Rate Fraction of Inspired Oxygen 01/17/24 16:30 01/17/24 16:45 01/17/24 17:00 Temperature Pulse Rate 106 H 104 H 103 H Respiratory Rate Blood Pressure 104/59 L 89/53 L 89/52 L Pulse Oximetry Oxygen Delivery Oxygen Flow Rate Fraction of Inspired Oxygen 01/17/24 17:15 01/17/24 17:45 01/17/24 18:10 Temperature Pulse Rate 106 H 113 H 101 H Respiratory Rate Blood Pressure 91/54 L 90/55 L 93/56 L Pulse Oximetry Oxygen Delivery Oxygen Flow Rate Fraction of Inspired Oxygen 01/17/24 18:40 01/17/24 19:30 01/17/24 19:59 Temperature Pulse Rate 97 Respiratory Rate Blood Pressure 101/57 L Pulse Oximetry 100 100 Oxygen Delivery High Flow Therapy with Na High Flow Therapy with Na Oxygen Flow Rate 45 45 Fraction of Inspired Oxygen 100 70 01/17/24 19:45 01/17/24 19:45 01/17/24 19:45 Temperature Pulse Rate 106 H 106 H 106 H Respiratory Rate Blood Pressure 98/60 L 98/60 L 98/60 L Pulse Oximetry Oxygen Delivery Oxygen Flow Rate Fraction of Inspired Oxygen 01/17/24 20:21 01/17/24 20:00 01/17/24 20:00 Temperature Pulse Rate 108 H 105 H Respiratory Rate Blood Pressure 103/60 103/61 Pulse Oximetry 100 Oxygen Delivery High Flow Nasal Cannula Oxygen Flow Rate 45 Fraction of Inspired Oxygen 100 01/17/24 20:00 01/17/24 20:15 01/17/24 20:30 Temperature 37.7 C H 37.7 C H 37.6 C H Pulse Rate 106 H 106 H 107 H Respiratory Rate 24 H 26 H 24 H Blood Pressure 100/60 97/55 L 98/58 L Pulse Oximetry 100 100 100 Oxygen Delivery Oxygen Flow Rate Fraction of Inspired Oxygen 01/17/24 20:45 01/17/24 21:00 01/17/24 21:15 Temperature 37.6 C H 37.6 C H 37.6 C H Pulse Rate 106 H 106 H 105 H Respiratory Rate 26 H 27 H 28 H Blood Pressure 97/59 L 95/56 L 92/57 L Pulse Oximetry 100 98 92 Oxygen Delivery Oxygen Flow Rate Fraction of Inspired Oxygen 01/17/24 22:00 01/17/24 22:15 01/17/24 22:00 Temperature 37.6 C H Pulse Rate 106 H 133 H 106 H Respiratory Rate 34 H Blood Pressure 95/56 L 87/62 L 95/56 L Pulse Oximetry 92 Oxygen Delivery Oxygen Flow Rate Fraction of Inspired Oxygen 01/17/24 22:19 01/17/24 22:20 01/17/24 22:50 Temperature Pulse Rate 105 H 120 H 104 H Respiratory Rate 22 H Blood Pressure 100/59 L 92/64 L Pulse Oximetry Oxygen Delivery Oxygen Flow Rate Fraction of Inspired Oxygen 01/17/24 22:50 01/17/24 23:00 01/17/24 21:30 Temperature 37.6 C H Pulse Rate 103 H 105 H 106 H Respiratory Rate 22 H 22 H 29 H Blood Pressure 95/55 L Pulse Oximetry 98 Oxygen Delivery Oxygen Flow Rate Fraction of Inspired Oxygen 01/17/24 22:00 01/17/24 22:32 01/17/24 20:00 Temperature 37.6 C H Pulse Rate 106 H 101 H 106 H Respiratory Rate 32 H Blood Pressure 95/56 L Pulse Oximetry 98 100 Oxygen Delivery Mechanical Ventilation Oxygen Flow Rate Fraction of Inspired Oxygen 100 01/17/24 22:00 01/17/24 23:44 01/17/24 22:16 Temperature 37.6 C H Pulse Rate 106 H 107 H 96 Respiratory Rate 35 H Blood Pressure 114/63 91/64 L Pulse Oximetry 93 Oxygen Delivery Oxygen Flow Rate Fraction of Inspired Oxygen 01/17/24 22:30 01/17/24 22:45 01/17/24 23:00 Temperature 37.6 C 37.6 C 37.5 C Pulse Rate 105 H 106 H 108 H Respiratory Rate 26 H 18 22 H Blood Pressure 101/60 109/66 110/61 Pulse Oximetry 95 100 100 Oxygen Delivery Oxygen Flow Rate Fraction of Inspired Oxygen 01/17/24 23:15 01/17/24 23:30 01/17/24 23:45 Temperature 37.5 C 37.4 C 37.4 C Pulse Rate 102 H 108 H 108 H Respiratory Rate 22 H 22 H 22 H Blood Pressure 113/64 109/61 109/62 Pulse Oximetry 100 100 100 Oxygen Delivery Oxygen Flow Rate Fraction of Inspired Oxygen 01/18/24 00:13 01/18/24 00:16 01/18/24 00:00 Temperature Pulse Rate 107 H 107 H 107 H Respiratory Rate 24 H Blood Pressure 106/62 108/63 Pulse Oximetry Oxygen Delivery Oxygen Flow Rate Fraction of Inspired Oxygen 01/17/24 23:00 01/18/24 00:00 01/18/24 00:00 Temperature Pulse Rate 101 H 107 H 107 H Respiratory Rate 22 H Blood Pressure 110/60 108/63 Pulse Oximetry Oxygen Delivery Oxygen Flow Rate Fraction of Inspired Oxygen 01/18/24 00:00 01/18/24 00:00 01/18/24 00:23 Temperature Pulse Rate 107 H 107 H 98 Respiratory Rate 22 H Blood Pressure 108/63 Pulse Oximetry 100 Oxygen Delivery Mechanical Ventilation Oxygen Flow Rate Fraction of Inspired Oxygen 65 01/18/24 00:37 01/18/24 00:40 01/18/24 00:41 Temperature Pulse Rate 107 H 108 H 108 H Respiratory Rate 26 H Blood Pressure 104/62 105/63 Pulse Oximetry Oxygen Delivery Oxygen Flow Rate Fraction of Inspired Oxygen 01/18/24 00:44 01/18/24 00:00 08/21/24 00:00 Temperature 37.4 C Pulse Rate 108 H 106 H 106 H Respiratory Rate 26 H 24 H 24 H Blood Pressure 110/64 Pulse Oximetry 100 100 Oxygen Delivery Mechanical Ventilation Oxygen Flow Rate Fraction of Inspired Oxygen 65 01/18/24 01:00 01/17/24 22:00 01/18/24 00:00 Temperature 37.4 C Pulse Rate 106 H Respiratory Rate 24 H Blood Pressure 105/61 Pulse Oximetry 99 100 Oxygen Delivery High Flow Nasal Cannula Oxygen Flow Rate 45 Fraction of Inspired Oxygen 100 65 01/18/24 00:00 01/18/24 02:00 01/18/24 02:00 Temperature Pulse Rate 106 H 100 100 Respiratory Rate Blood Pressure 95/60 L 95/60 L Pulse Oximetry Oxygen Delivery Oxygen Flow Rate Fraction of Inspired Oxygen 01/18/24 02:00 01/18/24 02:00 01/18/24 02:00 Temperature Pulse Rate 100 100 100 Respiratory Rate 24 H 24 H Blood Pressure 95/60 L Pulse Oximetry Oxygen Delivery Oxygen Flow Rate Fraction of Inspired Oxygen 01/18/24 02:00 01/18/24 02:00 01/18/24 02:11 Temperature 37.6 C H Pulse Rate 100 100 102 H Respiratory Rate 24 H 24 H Blood Pressure 95/60 L Pulse Oximetry 99 Oxygen Delivery Oxygen Flow Rate Fraction of Inspired Oxygen 01/18/24 02:14 01/18/24 02:15 01/18/24 02:17 Temperature 37.6 C H Pulse Rate 100 99 99 Respiratory Rate 24 H 24 H Blood Pressure 95/59 L 95/60 L Pulse Oximetry 100 Oxygen Delivery Oxygen Flow Rate Fraction of Inspired Oxygen 01/18/24 02:25 01/18/24 02:32 01/18/24 02:30 Temperature 37.6 C H Pulse Rate 98 99 98 Respiratory Rate 24 H 24 H Blood Pressure 92/58 L 99/66 L Pulse Oximetry 98 Oxygen Delivery Oxygen Flow Rate Fraction of Inspired Oxygen 01/18/24 02:49 01/18/24 03:00 01/18/24 02:45 Temperature 37.6 C H Pulse Rate 101 H 104 H 100 Respiratory Rate 24 H 24 H Blood Pressure 98/63 L 97/64 L Pulse Oximetry 99 Oxygen Delivery Oxygen Flow Rate Fraction of Inspired Oxygen 01/18/24 03:00 01/18/24 03:03 01/18/24 03:05 Temperature 37.7 C H Pulse Rate 104 H 106 H 104 H Respiratory Rate 27 H 30 H Blood Pressure 98/63 L 98/64 L Pulse Oximetry 99 Oxygen Delivery Oxygen Flow Rate Fraction of Inspired Oxygen 01/18/24 03:14 01/18/24 03:15 01/18/24 03:23 Temperature Pulse Rate 106 H 109 H 104 H Respiratory Rate Blood Pressure 104/66 102/64 96/65 L Pulse Oximetry Oxygen Delivery Oxygen Flow Rate Fraction of Inspired Oxygen 01/18/24 03:28 01/18/24 03:34 01/18/24 03:15 Temperature 37.7 C H Pulse Rate 101 H 98 108 H Respiratory Rate 30 H Blood Pressure 115/72 96/63 L 104/64 Pulse Oximetry 98 Oxygen Delivery Oxygen Flow Rate Fraction of Inspired Oxygen 01/18/24 03:30 01/18/24 03:39 01/18/24 03:50 Temperature 37.7 C H Pulse Rate 101 H 109 H 111 H Respiratory Rate 28 H Blood Pressure 115/71 96/64 L 99/66 L Pulse Oximetry 98 Oxygen Delivery Oxygen Flow Rate Fraction of Inspired Oxygen 01/18/24 04:00 01/18/24 04:00 01/18/24 04:00 Temperature Pulse Rate 114 H 114 H 113 H Respiratory Rate Blood Pressure 103/67 102/66 103/67 Pulse Oximetry Oxygen Delivery Oxygen Flow Rate Fraction of Inspired Oxygen 01/18/24 04:00 01/18/24 04:00 01/18/24 04:00 Temperature Pulse Rate 113 H 114 H 114 H Respiratory Rate 24 H 24 H Blood Pressure 102/67 Pulse Oximetry Oxygen Delivery Oxygen Flow Rate Fraction of Inspired Oxygen 01/18/24 04:00 01/18/24 04:00 01/18/24 04:00 Temperature 37.7 C H Pulse Rate 113 H 113 H Respiratory Rate 29 H 29 H Blood Pressure 102/67 Pulse Oximetry 99 99 Oxygen Delivery Mechanical Ventilation Oxygen Flow Rate Fraction of Inspired Oxygen 50 50 01/18/24 05:13 01/18/24 05:13 01/18/24 04:15 Temperature 37.7 C H Pulse Rate 109 H 109 H 115 H Respiratory Rate 28 H Blood Pressure 107/67 106/67 99/64 L Pulse Oximetry 97 Oxygen Delivery Oxygen Flow Rate Fraction of Inspired Oxygen 01/18/24 04:30 01/18/24 04:45 01/18/24 05:00 Temperature 37.7 C H 37.7 C H 37.6 C H Pulse Rate 113 H 112 H 109 H Respiratory Rate 29 H 29 H 29 H Blood Pressure 103/66 103/66 106/66 Pulse Oximetry 97 93 96 Oxygen Delivery Oxygen Flow Rate Fraction of Inspired Oxygen 01/18/24 03:00 01/18/24 05:00 01/18/24 06:00 Temperature Pulse Rate 109 H 109 H 109 H Respiratory Rate Blood Pressure 109/66 Pulse Oximetry 98 98 Oxygen Delivery Mechanical Ventilation Mechanical Ventilation Oxygen Flow Rate Fraction of Inspired Oxygen 50 50 01/18/24 06:00 01/18/24 06:00 01/18/24 06:00 Temperature Pulse Rate 109 H 109 H 109 H Respiratory Rate Blood Pressure 109/66 109/66 109/66 Pulse Oximetry Oxygen Delivery Oxygen Flow Rate Fraction of Inspired Oxygen 01/18/24 06:00 01/18/24 06:00 01/18/24 05:15 Temperature 37.5 C Pulse Rate 109 H 109 H 110 H Respiratory Rate 28 H 28 H 28 H Blood Pressure 106/67 Pulse Oximetry 97 Oxygen Delivery Oxygen Flow Rate Fraction of Inspired Oxygen 01/18/24 05:30 01/18/24 05:45 01/18/24 06:00 Temperature 37.4 C 37.4 C 37.4 C Pulse Rate 107 H 109 H 109 H Respiratory Rate 28 H 28 H 28 H Blood Pressure 112/68 109/66 109/66 Pulse Oximetry 97 97 97 Oxygen Delivery Oxygen Flow Rate Fraction of Inspired Oxygen 01/18/24 06:18 01/18/24 06:18 01/18/24 04:00 Temperature Pulse Rate 104 H 111 H 113 H Respiratory Rate Blood Pressure 108/65 108/63 Pulse Oximetry Oxygen Delivery Oxygen Flow Rate Fraction of Inspired Oxygen 01/18/24 06:00 01/18/24 07:49 01/18/24 07:49 Temperature Pulse Rate 110 H 107 H 107 H Respiratory Rate Blood Pressure 102/64 102/65 Pulse Oximetry Oxygen Delivery Oxygen Flow Rate Fraction of Inspired Oxygen 01/18/24 07:35 01/18/24 08:00 01/18/24 08:00 Temperature Pulse Rate 107 H 110 H 107 H Respiratory Rate Blood Pressure 99/59 L 99/66 L Pulse Oximetry 96 Oxygen Delivery Mechanical Ventilation Oxygen Flow Rate Fraction of Inspired Oxygen 70 01/18/24 08:00 01/18/24 08:00 08/21/24 08:00 Temperature Pulse Rate 111 H 111 H 111 H Respiratory Rate 28 H 28 H Blood Pressure 99/66 L Pulse Oximetry Oxygen Delivery Oxygen Flow Rate Fraction of Inspired Oxygen 01/18/24 08:00 01/18/24 09:00 01/18/24 09:22 Temperature 37.5 C 37.5 C Pulse Rate 107 H 105 H 102 H Respiratory Rate 28 H 29 H Blood Pressure 105/64 129/78 143/79 H Pulse Oximetry 97 100 Oxygen Delivery Oxygen Flow Rate Fraction of Inspired Oxygen 01/18/24 09:44 01/18/24 09:40 01/18/24 09:46 Temperature Pulse Rate 102 H 102 H 102 H Respiratory Rate Blood Pressure 143/79 H 141/78 H 141/78 H Pulse Oximetry Oxygen Delivery Oxygen Flow Rate Fraction of Inspired Oxygen 01/18/24 09:50 01/18/24 08:00 01/18/24 08:00 Temperature Pulse Rate 101 H 107 H Respiratory Rate 28 H Blood Pressure 131/74 Pulse Oximetry 96 Oxygen Delivery Mechanical Ventilation Oxygen Flow Rate Fraction of Inspired Oxygen 70 70 01/18/24 08:00 01/18/24 10:00 01/18/24 10:00 Temperature 37.5 C Pulse Rate 107 H 101 H 99 Respiratory Rate 28 H Blood Pressure 129/74 Pulse Oximetry 100 Oxygen Delivery Oxygen Flow Rate Fraction of Inspired Oxygen 01/18/24 11:00 01/18/24 10:00 01/18/24 10:00 Temperature 37.6 C Pulse Rate 104 H 104 H 104 H Respiratory Rate 28 H Blood Pressure 128/73 129/74 129/74 Pulse Oximetry 100 Oxygen Delivery Oxygen Flow Rate Fraction of Inspired Oxygen 01/18/24 10:00 01/18/24 10:00 01/18/24 10:00 Temperature Pulse Rate 104 H 104 H 104 H Respiratory Rate 28 H Blood Pressure 129/74 129/74 Pulse Oximetry Oxygen Delivery Oxygen Flow Rate Fraction of Inspired Oxygen 01/18/24 10:00 01/18/24 12:00 01/18/24 12:00 Temperature 37.7 C H Pulse Rate 104 H 105 H 105 H Respiratory Rate 28 H 28 H Blood Pressure 132/74 133/77 Pulse Oximetry 99 Oxygen Delivery Oxygen Flow Rate Fraction of Inspired Oxygen 01/18/24 12:00 01/18/24 12:00 01/18/24 12:00 Temperature Pulse Rate 105 H 103 H Respiratory Rate 28 H Blood Pressure Pulse Oximetry 100 Oxygen Delivery Mechanical Ventilation Oxygen Flow Rate Fraction of Inspired Oxygen 70 70 01/18/24 12:27 01/18/24 12:46 01/18/24 12:45 Temperature Pulse Rate 103 H 103 H 105 H Respiratory Rate Blood Pressure 129/75 129/75 129/75 Pulse Oximetry Oxygen Delivery Oxygen Flow Rate Fraction of Inspired Oxygen 01/18/24 10:34 01/18/24 12:00 01/18/24 13:00 Temperature Pulse Rate 101 H 105 H 104 H Respiratory Rate Blood Pressure 133/77 128/74 Pulse Oximetry 100 Oxygen Delivery Mechanical Ventilation Oxygen Flow Rate Fraction of Inspired Oxygen 70 01/18/24 12:00 01/18/24 12:00 01/18/24 12:00 Temperature Pulse Rate 105 H 105 H 105 H Respiratory Rate 28 H 28 H Blood Pressure 133/77 Pulse Oximetry Oxygen Delivery Oxygen Flow Rate Fraction of Inspired Oxygen Exam Const: Other: Patient is intubated and sedated. HENMT: Other: Oropharynx cannot be assessed as patient is intubated. Eyes: Sclera: sclerae normal and scleral abnormality Other: No scleral icterus. Neck: Neck: supple and no JVD Resp: Other: Coarse breath sounds bilaterally. Cardio: Other: Slightly tachycardic with normal rhythm. GI: Other: Abdomen is obese and mildly distended. No masses and no hernias. Cannot assess for tenderness due to patient being sedated. Skin: General skin exam: normal color and no rashes or lesions noted Neuro: Other: Patient is intubated and sedated. Cannot assess. Extrem: General: normal to inspection Psych: Other: Patient is intubated and sedated and cannot assess. Results Labs 01/18/24 03:31 01/18/24 03:31 Labs: Short CBC 01/17/24 01/18/24 Range/Units 15:46 03:31 WBC 23.5 H 39.4 H (4.5-10.0) K/mm3 Hgb 11.3 L 10.2 L (12.0-15.0) g/dL Hct 34.8 L 30.6 L (37.0-47.0) % Plt Count 117 L 71 L (150-375) k/mm3 BMP 01/17/24 01/17/24 01/18/24 15:43 19:56 03:31 Sodium 134 L 135 L 143 Potassium 4.8 4.1 4.4 Chloride 106 102 94 L Carbon Dioxide 14 L 16 L 27 BUN 34 H 34 H 36 H Creatinine 3.20 H 3.10 H 3.40 H Glucose 184 H 146 H 158 H Calcium 7.1 L 7.2 L 6.0 L Liver Function 01/17/24 01/18/24 Range/Units 15:43 03:31 Total Bilirubin 0.9 1.3 (0.2-1.3) mg/dL AST 34 48 H (14-36) U/L ALT 20 25 (6-35) U/L Alkaline Phosphatase 107 83 (38-126) U/L Albumin 2.5 L 2.8 L (3.5-5.1) g/dL
[2024-01-18 13:36] LABS: Lactic Acid 14.3 mmol/L (0.7-2.0)
[2024-01-18 14:35] LABS: Alveolar/Arterial O2 Gradient 190.4 mmHg; Base Excess ABG -13.1 mEq/l (+/-2.0); Fractional Inspired Oxygen 60 %; HCO3 ABG 13.6 mEq/l (22.0-26.0); Oxygen Content ABG 15.2 %vol (16.0-22.0); Oxygen Saturation ABG 99.1 % (95.0-100.0); PCO2 ABG 34.2 mmHg (35.0-45.0); PO2 ABG 199.8 mmHg (80.0-100.0); PO2 FiO2 Ratio Arterial Blood 3.33 %; Total Hemoglobin 10.6 g/dL (12.0-18.0)
[2024-01-18 14:36] LABS: Device VENTILATOR; Site Drawn ARTLINE; pH ABG 7.217 (7.350-7.450)
[2024-01-18 14:37] LABS: Arterial Blood Gas PEEP 8 cmH2O; Arterial Blood Gas Tidal Volume 400 ml; Arterial Blood Gas Vent Mode CMV; Arterial Blood Gas Ventilator rate 28 /MIN
[2024-01-18 16:40] LABS: Vancomycin Random 14.4 ug/mL (10-20)
[2024-01-18] MEDS: VANCOMYCIN 1,750 MG/NS 500 ML 1,750 MG/500 ML BAG 250 MG IVPB (18:00)
[2024-01-18] MEDS: PHENYLEPHRINE HCL INJ 50 MG in DEXTROSE 5% IN WATER 250 ML/245 ML BAG 42 ML IV CONT (18:19)
--- NOTE | 2024-01-18 18:30 | P.PN_ITS ---
Progress Note: A&P Assessment and Plan (1) Septic shock: Code(s): A41.9 - Sepsis, unspecified organism; R65.21 - Severe sepsis with septic shock Status: Acute Assessment and Plan: The patient meets criteria for septic shock with refractory hypotension, acute kidney injury, leukocytosis with bandemia, tachypnea, tachycardia, and fever. Source is urinary tract infection related to obstructing ureteral stone. * Central line inserted 01/17/2024 per anesthesiologist. * Currently on norepinephrine, vasopressin, and phenylephrine. * Maintain SBP > 95 and MAP > 65 for adequate end-organ perfusion. * Add stress dose steroids, hydrocortisone 100 mg q.8 hours. * Continue aztreonam and vancomycin pending blood and urine cultures. (2) Urinary tract infection: Code(s): N39.0 - Urinary tract infection, site not specified Status: Acute Assessment and Plan: UTI secondary to obstructing stones. Urinalysis was positive for 3+ leukocyte esterase, > 100 WBC, and 4+ bacteria. * Receive ciprofloxacin 200 mg in the ED; she has multiple drug allergies. * Changed to aztreonam 1 g q.8 hours and vancomycin pending cultures. (3) Right ureteral stone: Code(s): N20.1 - Calculus of ureter Status: Acute Assessment and Plan: CT scan showed an 11 mm stone at the right ureteropelvic junction with mild right hydronephrosis. * Postoperative day 0 status post cystoscopy with ureteral stent placement. * Needs close follow-up with Dr. Gudino for definitive management pending resolution of infection. (4) Hydronephrosis: Code(s): N13.30 - Unspecified hydronephrosis Status: Acute Assessment and Plan: CT scan showed mild right hydronephrosis secondary to ureteral stone. * Status post cystoscopy and stent placement. (5) Acute kidney injury: Code(s): N17.9 - Acute kidney failure, unspecified Status: Acute Assessment and Plan: Due to a combination of obstructing stone, hypoperfusion from hypotension, and sepsis; she is also on thiazide and loop diuretics as well as NSAIDS. * Rocha catheter has been inserted for strict I/O with minimal output since surgery. * Continue judicious IV fluid rehydration with close monitoring of volume status. * Renally dose all medications and hold nephrotoxic agents. * Renal ultrasound has been ordered for a.m. (6) Acute respiratory failure: Code(s): J96.00 - Acute respiratory failure, unspecified whether with hypoxia or hypercapnia Status: Acute Assessment and Plan: Patient is tachypneic and hypoxic due to acidosis. Chest x-ray is clear. * ABG shows concomitant metabolic and respiratory acidosis. * Patient was started on Vapotherm with some improvement but deteriorated and was subsequently intubated. * Currently on CMV with a tidal volume of 350, rate 24, peep 5. * Sedation with very low-dose fentanyl (patient reports significant nausea and vomiting) and midazolam. (7) Electrolyte abnormality: Code(s): E87.8 - Other disorders of electrolyte and fluid balance, not elsewhere classified Status: Acute Assessment and Plan: Patient has several electrolyte abnormalities including hypocalcemia and hypomagnesemia. * Calcium and magnesium will be replaced and monitored closely. (8) Hypertension: Code(s): I10 - Essential (primary) hypertension Status: Acute Assessment and Plan: She has refractory hypotension is currently on vasopressors as above. * Continue to hold antihypertensives. Plan on 01/16 patient was seen by her urologist for infected stone and had cystoscopy and right ureteral stent placement emergently, and was found to have UTI. Patient was started on broad-spectrum antibiotics. patient went to sepsis with hypotension was started on vasopressin, norepinephrine and fluids, patient condition was worsening and patient was intubated. Today rn anesthesiology spoke with the patient's family and recommended to add another pressor and also discussed the long-term care and family has decided to place the patient DNR, patient is seen rn anesthesiology, and urology. Subjective Date/time seen: 08/21/24 18:30 Interval history: H&K-SIC-[id number]: This is a 78-year-old female with hypertension, hyperlipidemia, prediabetes, breast cancer, and anxiety who presented to the emergency department via EMS from home for evaluation of weakness. The patient provides the following history and her provides additional information with the patient's permission. She has not been feeling well for the last day with symptoms to include fatigue, profound weakness, nausea, and loose stools. Today she started having pain throughout the abdomen which she has difficulties localizing. It is described as severe and normal spasming in nature. She has not been running a fever and denies sinus congestion, headache, sore throat, cough, chest pain, vomiting, melena, hematochezia, hematuria, and dysuria. She denies sick contacts. In the ED: She was afebrile on arrival, tachypneic, and tachycardic. Blood pressures were soft and trended downwards. Labs were significant for a WBC count of 13.5 (10% bands), hemoglobin 12.8, platelet 135, sodium 135, carbon dioxide 13, anion gap 17, BUN 31, creatinine 2.90, proBNP 8340. Urine was turbid with 2+ protein, 3+ glucose, trace ketones, 3+ blood, 1+ bilirubin, 3+ leukocyte esterase, 21 to 50 RBC, greater than 100 WBC, 4+ bacteria, and many squamous cells. Nasal MRSA screening was negative. CT of the abdomen and pelvis showed an 11 mm stone at the right ureteropelvic junction with mild right hydronephrosis. She was given ciprofloxacin 200 mg IV and she was taken to the OR on low-dose norepinephrine. In the OR: She underwent cystoscopy with right ureteral stent placement per Dr. Gudino. A central line and arterial line were placed per the anesthesiologist. Norepinephrine was titrated upwards and she did require vasopressin push dose. In the ICU: Upon arrival to the ICU she was tachypneic, tachycardic, and blood pressures in the 70s to 80s systolic. She was started on vasopressin in addition to the norepinephrine. Temperature spike to 103.1? F. Repeat labs were obtained and she was found to have a lactic acid level of 5.7 and increase in creatinine to 3.10. ABG showed a pH of 7.169, pCO2 38.2, bicarb 13.6. Given the patient's ongoing tachypnea, we did discuss noninvasive ventilation or even intubation due to concerns for impending respiratory failure. The patient was adamant that she did not want to try BiPAP as she has had in the past. She was given 2 amps sodium bicarbonate and was placed on Vapotherm which was much more comfortable for her. She seemed to improve for a couple of hours before her vital signs deteriorated (increasing tachycardia, tachypnea, and worsening hypotension). After multiple reassessments and discussions with the patient, her family, nursing staff, and the rn anesthesiology Dr. Olsen, the decision was made to int ubate the patient. Antibiotics were changed to aztreonam and vancomycin. today patient remains on ventilator requiring 3 pressors and still her blood pressure is low and may need one more patient is in septic shock. on 01/16 patient was seen by her urologist for infected stone and had cystoscopy and right ureteral stent placement emergently, and was found to have UTI. Patient was started on broad-spectrum antibiotics. patient went to sepsis with hypotension was started on vasopressin, norepinephrine and fluids, patient condition was worsening and patient was intubated. Today rn anesthesiology spoke with the patient's family and recommended to add another pressor and also discussed the long-term care and family has decided to place the patient DNR, patient is seen rn anesthesiology, and urology. Review of Systems Review of Systems: ROS unobtainable: Yes unobtainable due to endotracheal tube Exam Narrative: Morbidly obese Patient is comfortable, NAD HEENT: ET tube in place LUNGS:CTA HEART: RR S1S2 ABD: BS+, Soft and nontender Lower extremities: no edema SKIN: nonjaundiced Neuro: On vent and sedated. Objective Data Vital Signs Vital Signs: Vital Signs - 24 hr 01/17/24 18:40 01/17/24 19:30 01/17/24 19:59 Temperature Pulse Rate 97 Respiratory Rate Blood Pressure 101/57 L Pulse Oximetry 100 100 Oxygen Delivery High Flow Therapy with Na High Flow Therapy with Na Oxygen Flow Rate 45 45 Fraction of Inspired Oxygen 100 70 01/17/24 19:45 01/17/24 19:45 01/17/24 19:45 Temperature Pulse Rate 106 H 106 H 106 H Respiratory Rate Blood Pressure 98/60 L 98/60 L 98/60 L Pulse Oximetry Oxygen Delivery Oxygen Flow Rate Fraction of Inspired Oxygen 01/17/24 20:21 01/17/24 20:00 01/17/24 20:00 Temperature Pulse Rate 108 H 105 H Respiratory Rate Blood Pressure 103/60 103/61 Pulse Oximetry 100 Oxygen Delivery High Flow Nasal Cannula Oxygen Flow Rate 45 Fraction of Inspired Oxygen 100 01/17/24 20:00 01/17/24 20:15 01/17/24 20:30 Temperature 37.7 C H 37.7 C H 37.6 C H Pulse Rate 106 H 106 H 107 H Respiratory Rate 24 H 26 H 24 H Blood Pressure 100/60 97/55 L 98/58 L Pulse Oximetry 100 100 100 Oxygen Delivery Oxygen Flow Rate Fraction of Inspired Oxygen 01/17/24 20:45 01/17/24 21:00 01/17/24 21:15 Temperature 37.6 C H 37.6 C H 37.6 C H Pulse Rate 106 H 106 H 105 H Respiratory Rate 26 H 27 H 28 H Blood Pressure 97/59 L 95/56 L 92/57 L Pulse Oximetry 100 98 92 Oxygen Delivery Oxygen Flow Rate Fraction of Inspired Oxygen 01/17/24 22:00 01/17/24 22:15 01/17/24 22:00 Temperature 37.6 C H Pulse Rate 106 H 133 H 106 H Respiratory Rate 34 H Blood Pressure 95/56 L 87/62 L 95/56 L Pulse Oximetry 92 Oxygen Delivery Oxygen Flow Rate Fraction of Inspired Oxygen 01/17/24 22:19 01/17/24 22:20 01/17/24 22:50 Temperature Pulse Rate 105 H 120 H 104 H Respiratory Rate 22 H Blood Pressure 100/59 L 92/64 L Pulse Oximetry Oxygen Delivery Oxygen Flow Rate Fraction of Inspired Oxygen 01/17/24 22:50 01/17/24 23:00 01/17/24 21:30 Temperature 37.6 C H Pulse Rate 103 H 105 H 106 H Respiratory Rate 22 H 22 H 29 H Blood Pressure 95/55 L Pulse Oximetry 98 Oxygen Delivery Oxygen Flow Rate Fraction of Inspired Oxygen 01/17/24 22:00 01/17/24 22:32 01/17/24 20:00 Temperature 37.6 C H Pulse Rate 106 H 101 H 106 H Respiratory Rate 32 H Blood Pressure 95/56 L Pulse Oximetry 98 100 Oxygen Delivery Mechanical Ventilation Oxygen Flow Rate Fraction of Inspired Oxygen 100 01/17/24 22:00 01/17/24 23:44 01/17/24 22:16 Temperature 37.6 C H Pulse Rate 106 H 107 H 96 Respiratory Rate 35 H Blood Pressure 114/63 91/64 L Pulse Oximetry 93 Oxygen Delivery Oxygen Flow Rate Fraction of Inspired Oxygen 01/17/24 22:30 01/17/24 22:45 01/17/24 23:00 Temperature 37.6 C 37.6 C 37.5 C Pulse Rate 105 H 106 H 108 H Respiratory Rate 26 H 18 22 H Blood Pressure 101/60 109/66 110/61 Pulse Oximetry 95 100 100 Oxygen Delivery Oxygen Flow Rate Fraction of Inspired Oxygen 01/17/24 23:15 01/17/24 23:30 01/17/24 23:45 Temperature 37.5 C 37.4 C 37.4 C Pulse Rate 102 H 108 H 108 H Respiratory Rate 22 H 22 H 22 H Blood Pressure 113/64 109/61 109/62 Pulse Oximetry 100 100 100 Oxygen Delivery Oxygen Flow Rate Fraction of Inspired Oxygen 01/18/24 00:13 01/18/24 00:16 01/18/24 00:00 Temperature Pulse Rate 107 H 107 H 107 H Respiratory Rate 24 H Blood Pressure 106/62 108/63 Pulse Oximetry Oxygen Delivery Oxygen Flow Rate Fraction of Inspired Oxygen 01/17/24 23:00 01/18/24 00:00 01/18/24 00:00 Temperature Pulse Rate 101 H 107 H 107 H Respiratory Rate 22 H Blood Pressure 110/60 108/63 Pulse Oximetry Oxygen Delivery Oxygen Flow Rate Fraction of Inspired Oxygen 01/18/24 00:00 01/18/24 00:00 01/18/24 00:23 Temperature Pulse Rate 107 H 107 H 98 Respiratory Rate 22 H Blood Pressure 108/63 Pulse Oximetry 100 Oxygen Delivery Mechanical Ventilation Oxygen Flow Rate Fraction of Inspired Oxygen 65 01/18/24 00:37 01/18/24 00:40 01/18/24 00:41 Temperature Pulse Rate 107 H 108 H 108 H Respiratory Rate 26 H Blood Pressure 104/62 105/63 Pulse Oximetry Oxygen Delivery Oxygen Flow Rate Fraction of Inspired Oxygen 01/18/24 00:44 01/18/24 00:00 01/18/24 00:00 Temperature 37.4 C Pulse Rate 108 H 106 H 106 H Respiratory Rate 26 H 24 H 24 H Blood Pressure 110/64 Pulse Oximetry 100 100 Oxygen Delivery Mechanical Ventilation Oxygen Flow Rate Fraction of Inspired Oxygen 65 08/21/24 01:00 01/17/24 22:00 01/18/24 00:00 Temperature 37.4 C Pulse Rate 106 H Respiratory Rate 24 H Blood Pressure 105/61 Pulse Oximetry 99 100 Oxygen Delivery High Flow Nasal Cannula Oxygen Flow Rate 45 Fraction of Inspired Oxygen 100 65 01/18/24 00:00 01/18/24 02:00 01/18/24 02:00 Temperature Pulse Rate 106 H 100 100 Respiratory Rate Blood Pressure 95/60 L 95/60 L Pulse Oximetry Oxygen Delivery Oxygen Flow Rate Fraction of Inspired Oxygen 01/18/24 02:00 01/18/24 02:00 01/18/24 02:00 Temperature Pulse Rate 100 100 100 Respiratory Rate 24 H 24 H Blood Pressure 95/60 L Pulse Oximetry Oxygen Delivery Oxygen Flow Rate Fraction of Inspired Oxygen 01/18/24 02:00 01/18/24 02:00 01/18/24 02:11 Temperature 37.6 C H Pulse Rate 100 100 102 H Respiratory Rate 24 H 24 H Blood Pressure 95/60 L Pulse Oximetry 99 Oxygen Delivery Oxygen Flow Rate Fraction of Inspired Oxygen 01/18/24 02:14 01/18/24 02:15 01/18/24 02:17 Temperature 37.6 C H Pulse Rate 100 99 99 Respiratory Rate 24 H 24 H Blood Pressure 95/59 L 95/60 L Pulse Oximetry 100 Oxygen Delivery Oxygen Flow Rate Fraction of Inspired Oxygen 01/18/24 02:25 01/18/24 02:32 01/18/24 02:30 Temperature 37.6 C H Pulse Rate 98 99 98 Respiratory Rate 24 H 24 H Blood Pressure 92/58 L 99/66 L Pulse Oximetry 98 Oxygen Delivery Oxygen Flow Rate Fraction of Inspired Oxygen 01/18/24 02:49 01/18/24 03:00 01/18/24 02:45 Temperature 37.6 C H Pulse Rate 101 H 104 H 100 Respiratory Rate 24 H 24 H Blood Pressure 98/63 L 97/64 L Pulse Oximetry 99 Oxygen Delivery Oxygen Flow Rate Fraction of Inspired Oxygen 01/18/24 03:00 01/18/24 03:03 01/18/24 03:05 Temperature 37.7 C H Pulse Rate 104 H 106 H 104 H Respiratory Rate 27 H 30 H Blood Pressure 98/63 L 98/64 L Pulse Oximetry 99 Oxygen Delivery Oxygen Flow Rate Fraction of Inspired Oxygen 01/18/24 03:14 01/18/24 03:15 01/18/24 03:23 Temperature Pulse Rate 106 H 109 H 104 H Respiratory Rate Blood Pressure 104/66 102/64 96/65 L Pulse Oximetry Oxygen Delivery Oxygen Flow Rate Fraction of Inspired Oxygen 01/18/24 03:28 01/18/24 03:34 01/18/24 03:15 Temperature 37.7 C H Pulse Rate 101 H 98 108 H Respiratory Rate 30 H Blood Pressure 115/72 96/63 L 104/64 Pulse Oximetry 98 Oxygen Delivery Oxygen Flow Rate Fraction of Inspired Oxygen 01/18/24 03:30 01/18/24 03:39 01/18/24 03:50 Temperature 37.7 C H Pulse Rate 101 H 109 H 111 H Respiratory Rate 28 H Blood Pressure 115/71 96/64 L 99/66 L Pulse Oximetry 98 Oxygen Delivery Oxygen Flow Rate Fraction of Inspired Oxygen 01/18/24 04:00 01/18/24 04:00 01/18/24 04:00 Temperature Pulse Rate 114 H 114 H 113 H Respiratory Rate Blood Pressure 103/67 102/66 103/67 Pulse Oximetry Oxygen Delivery Oxygen Flow Rate Fraction of Inspired Oxygen 01/18/24 04:00 01/18/24 04:00 01/18/24 04:00 Temperature Pulse Rate 113 H 114 H 114 H Respiratory Rate 24 H 24 H Blood Pressure 102/67 Pulse Oximetry Oxygen Delivery Oxygen Flow Rate Fraction of Inspired Oxygen 01/18/24 04:00 01/18/24 04:00 01/18/24 04:00 Temperature 37.7 C H Pulse Rate 113 H 113 H Respiratory Rate 29 H 29 H Blood Pressure 102/67 Pulse Oximetry 99 99 Oxygen Delivery Mechanical Ventilation Oxygen Flow Rate Fraction of Inspired Oxygen 50 50 01/18/24 05:13 01/18/24 05:13 01/18/24 04:15 Temperature 37.7 C H Pulse Rate 109 H 109 H 115 H Respiratory Rate 28 H Blood Pressure 107/67 106/67 99/64 L Pulse Oximetry 97 Oxygen Delivery Oxygen Flow Rate Fraction of Inspired Oxygen 01/18/24 04:30 01/18/24 04:45 01/18/24 05:00 Temperature 37.7 C H 37.7 C H 37.6 C H Pulse Rate 113 H 112 H 109 H Respiratory Rate 29 H 29 H 29 H Blood Pressure 103/66 103/66 106/66 Pulse Oximetry 97 93 96 Oxygen Delivery Oxygen Flow Rate Fraction of Inspired Oxygen 01/18/24 03:00 01/18/24 05:00 01/18/24 06:00 Temperature Pulse Rate 109 H 109 H 109 H Respiratory Rate Blood Pressure 109/66 Pulse Oximetry 98 98 Oxygen Delivery Mechanical Ventilation Mechanical Ventilation Oxygen Flow Rate Fraction of Inspired Oxygen 50 50 01/18/24 06:00 01/18/24 06:00 01/18/24 06:00 Temperature Pulse Rate 109 H 109 H 109 H Respiratory Rate Blood Pressure 109/66 109/66 109/66 Pulse Oximetry Oxygen Delivery Oxygen Flow Rate Fraction of Inspired Oxygen 01/18/24 06:00 01/18/24 06:00 01/18/24 05:15 Temperature 37.5 C Pulse Rate 109 H 109 H 110 H Respiratory Rate 28 H 28 H 28 H Blood Pressure 106/67 Pulse Oximetry 97 Oxygen Delivery Oxygen Flow Rate Fraction of Inspired Oxygen 01/18/24 05:30 01/18/24 05:45 01/18/24 06:00 Temperature 37.4 C 37.4 C 37.4 C Pulse Rate 107 H 109 H 109 H Respiratory Rate 28 H 28 H 28 H Blood Pressure 112/68 109/66 109/66 Pulse Oximetry 97 97 97 Oxygen Delivery Oxygen Flow Rate Fraction of Inspired Oxygen 01/18/24 06:18 01/18/24 06:18 01/18/24 04:00 Temperature Pulse Rate 104 H 111 H 113 H Respiratory Rate Blood Pressure 108/65 108/63 Pulse Oximetry Oxygen Delivery Oxygen Flow Rate Fraction of Inspired Oxygen 01/18/24 06:00 01/18/24 07:49 01/18/24 07:49 Temperature Pulse Rate 110 H 107 H 107 H Respiratory Rate Blood Pressure 102/64 102/65 Pulse Oximetry Oxygen Delivery Oxygen Flow Rate Fraction of Inspired Oxygen 01/18/24 07:35 01/18/24 08:00 01/18/24 08:00 Temperature Pulse Rate 107 H 110 H 107 H Respiratory Rate Blood Pressure 99/59 L 99/66 L Pulse Oximetry 96 Oxygen Delivery Mechanical Ventilation Oxygen Flow Rate Fraction of Inspired Oxygen 70 01/18/24 08:00 01/18/24 08:00 01/18/24 08:00 Temperature Pulse Rate 111 H 111 H 111 H Respiratory Rate 28 H 28 H Blood Pressure 99/66 L Pulse Oximetry Oxygen Delivery Oxygen Flow Rate Fraction of Inspired Oxygen 01/18/24 08:00 01/18/24 09:00 01/18/24 09:22 Temperature 37.5 C 37.5 C Pulse Rate 107 H 105 H 102 H Respiratory Rate 28 H 29 H Blood Pressure 105/64 129/78 143/79 H Pulse Oximetry 97 100 Oxygen Delivery Oxygen Flow Rate Fraction of Inspired Oxygen 01/18/24 09:44 01/18/24 09:40 01/18/24 09:46 Temperature Pulse Rate 102 H 102 H 102 H Respiratory Rate Blood Pressure 143/79 H 141/78 H 141/78 H Pulse Oximetry Oxygen Delivery Oxygen Flow Rate Fraction of Inspired Oxygen 01/18/24 09:50 01/18/24 08:00 01/18/24 08:00 Temperature Pulse Rate 101 H 107 H Respiratory Rate 28 H Blood Pressure 131/74 Pulse Oximetry 96 Oxygen Delivery Mechanical Ventilation Oxygen Flow Rate Fraction of Inspired Oxygen 70 70 01/18/24 08:00 01/18/24 10:00 01/18/24 10:00 Temperature 37.5 C Pulse Rate 107 H 101 H 99 Respiratory Rate 28 H Blood Pressure 129/74 Pulse Oximetry 100 Oxygen Delivery Oxygen Flow Rate Fraction of Inspired Oxygen 01/18/24 11:00 01/18/24 10:00 01/18/24 10:00 Temperature 37.6 C Pulse Rate 104 H 104 H 104 H Respiratory Rate 28 H Blood Pressure 128/73 129/74 129/74 Pulse Oximetry 100 Oxygen Delivery Oxygen Flow Rate Fraction of Inspired Oxygen 01/18/24 10:00 01/18/24 10:00 01/18/24 10:00 Temperature Pulse Rate 104 H 104 H 104 H Respiratory Rate 28 H Blood Pressure 129/74 129/74 Pulse Oximetry Oxygen Delivery Oxygen Flow Rate Fraction of Inspired Oxygen 01/18/24 10:00 01/18/24 12:00 01/18/24 12:00 Temperature 37.7 C H Pulse Rate 104 H 105 H 105 H Respiratory Rate 28 H 28 H Blood Pressure 132/74 133/77 Pulse Oximetry 99 Oxygen Delivery Oxygen Flow Rate Fraction of Inspired Oxygen 01/18/24 12:00 01/18/24 12:00 01/18/24 12:00 Temperature Pulse Rate 105 H 103 H Respiratory Rate 28 H Blood Pressure Pulse Oximetry 100 Oxygen Delivery Mechanical Ventilation Oxygen Flow Rate Fraction of Inspired Oxygen 70 70 01/18/24 12:27 01/18/24 12:46 01/18/24 12:45 Temperature Pulse Rate 103 H 103 H 105 H Respiratory Rate Blood Pressure 129/75 129/75 129/75 Pulse Oximetry Oxygen Delivery Oxygen Flow Rate Fraction of Inspired Oxygen 01/18/24 10:34 01/18/24 12:00 01/18/24 13:00 Temperature Pulse Rate 101 H 105 H 104 H Respiratory Rate Blood Pressure 133/77 128/74 Pulse Oximetry 100 Oxygen Delivery Mechanical Ventilation Oxygen Flow Rate Fraction of Inspired Oxygen 70 01/18/24 12:00 01/18/24 12:00 01/18/24 12:00 Temperature Pulse Rate 105 H 105 H 105 H Respiratory Rate 28 H 28 H Blood Pressure 133/77 Pulse Oximetry Oxygen Delivery Oxygen Flow Rate Fraction of Inspired Oxygen 01/18/24 13:00 01/18/24 13:35 01/18/24 14:00 Temperature 37.7 C H Pulse Rate 94 95 102 H Respiratory Rate 28 H Blood Pressure 128/72 136/78 Pulse Oximetry 99 99 Oxygen Delivery Mechanical Ventilation Oxygen Flow Rate Fraction of Inspired Oxygen 70 01/18/24 14:10 01/18/24 14:10 01/18/24 14:00 Temperature 37.8 C H Pulse Rate 105 H 115 H 94 Respiratory Rate 28 H Blood Pressure 134/77 128/73 130/73 Pulse Oximetry 99 Oxygen Delivery Oxygen Flow Rate Fraction of Inspired Oxygen 01/18/24 14:25 01/18/24 14:13 01/18/24 14:28 Temperature Pulse Rate 94 96 96 Respiratory Rate Blood Pressure 120/69 118/66 118/66 Pulse Oximetry Oxygen Delivery Oxygen Flow Rate Fraction of Inspired Oxygen 01/18/24 14:00 01/18/24 14:00 01/18/24 14:00 Temperature Pulse Rate 96 94 96 Respiratory Rate 28 H 28 H Blood Pressure 121/69 Pulse Oximetry Oxygen Delivery Oxygen Flow Rate Fraction of Inspired Oxygen 01/18/24 14:00 01/18/24 15:00 01/18/24 16:00 Temperature 37.6 C Pulse Rate 94 95 95 Respiratory Rate 28 H Blood Pressure 118/67 113/63 Pulse Oximetry 99 Oxygen Delivery Oxygen Flow Rate Fraction of Inspired Oxygen 01/18/24 16:00 01/18/24 16:00 01/18/24 16:00 Temperature Pulse Rate 95 95 91 Respiratory Rate Blood Pressure 113/63 113/62 111/62 Pulse Oximetry Oxygen Delivery Oxygen Flow Rate Fraction of Inspired Oxygen 01/18/24 16:00 01/18/24 16:00 01/18/24 16:00 Temperature Pulse Rate 92 91 91 Respiratory Rate 28 H 28 H Blood Pressure Pulse Oximetry Oxygen Delivery Oxygen Flow Rate Fraction of Inspired Oxygen 01/18/24 16:00 01/18/24 16:00 01/18/24 17:00 Temperature 38.1 C H Pulse Rate 93 92 Respiratory Rate 28 H 28 H Blood Pressure 117/64 Pulse Oximetry 100 99 Oxygen Delivery Mechanical Ventilation Oxygen Flow Rate Fraction of Inspired Oxygen 60 60 01/18/24 17:14 01/18/24 16:00 01/18/24 16:34 Temperature 37.9 C H Pulse Rate 91 90 96 Respiratory Rate 28 H Blood Pressure 116/64 113/65 Pulse Oximetry 98 97 Oxygen Delivery Mechanical Ventilation Oxygen Flow Rate Fraction of Inspired Oxygen 60 01/18/24 18:00 01/18/24 18:18 01/18/24 18:19 Temperature 37.9 C H Pulse Rate 90 96 96 Respiratory Rate 28 H Blood Pressure 113/65 109/57 L 109/57 L Pulse Oximetry 98 Oxygen Delivery Oxygen Flow Rate Fraction of Inspired Oxygen 01/18/24 18:00 01/18/24 18:00 01/18/24 18:00 Temperature Pulse Rate 101 H 94 95 Respiratory Rate 32 H Blood Pressure 110/58 L Pulse Oximetry Oxygen Delivery Oxygen Flow Rate Fraction of Inspired Oxygen 01/18/24 18:00 01/18/24 18:00 01/18/24 18:00 Temperature Pulse Rate 95 95 100 Respiratory Rate 31 H Blood Pressure 111/58 L 111/58 L Pulse Oximetry Oxygen Delivery Oxygen Flow Rate Fraction of Inspired Oxygen Intake/Output Intake/Output: Intake & Output 01/15/24 01/16/24 01/17/24 01/18/24 23:59 23:59 23:59 23:59 Intake Total 4514.6 5394.7 Output Total 140 200 Balance 4374.6 5194.7 Meds/Results Medications: Active Medications Generic Name Dose Route Start Last Admin Trade Name Freq PRN Reason Stop Dose Admin Acetaminophen 650 mg 01/17/24 16:33 01/17/24 16:58 Acetaminophen 650 Mg Suppository RECTAL 650 mg Q6H PRN Administration Mild Pain (1-3) or Fever Atorvastatin Calcium 10 mg 01/18/24 09:00 Atorvastatin 10 Mg Tablet PO DAILY TANNA Duloxetine HCl 120 mg 01/18/24 09:00 01/18/24 07:54 Duloxetine Hcl 60 Mg Capsule.Dr PO 120 mg DAILY TANNA Administration Empagliflozin 10 mg 01/18/24 09:00 Empagliflozin 10 Mg Tablet PO DAILY TANNA Enoxaparin Sodium 30 mg 01/18/24 09:00 01/18/24 08:03 Enoxaparin 30 Mg/0.3 Ml Syringe SUB-Q Not Given DAILY TANNA Famotidine 20 mg 01/17/24 21:00 01/18/24 07:51 Famotidine 20 Mg/2 Ml Vial IV PUSH 20 mg Q12HR TANNA Administration Hydrocortisone Sodium Succinate 100 mg 01/17/24 22:00 01/18/24 14:22 Hydrocortisone Sodium Succinate 100 Mg/2 Ml Vial IV PUSH 100 mg Q8HR TANNA Administration Norepinephrine Bitartrate 8 mg in 250 mls @ 56.25 mls/hr 01/17/24 13:00 01/18/24 18:00 Levophed 8 Mg/D5w 250 Ml IV CONT 30 mcg/min .Q4H27M TANNA 56.25 mls/hr Titration Protocol 30 MCG/MIN Aztreonam 1 gm/ Sodium 50 mls @ 100 mls/hr 01/17/24 14:00 01/18/24 14:48 Chloride IVPB Infused Q8H TANNA Infusion Vasopressin 100 units/ 100 mls @ 2.4 mls/hr 01/17/24 15:15 01/18/24 18:00 Dextrose IV CONT 0.04 units/min .[id number] TANNA 2.4 mls/hr Titration Protocol 0.04 UNITS/MIN Sodium Bicarbonate 150 meq/ 1,100 mls @ 100 mls/hr 01/17/24 18:00 01/18/24 15:56 Sterile Water IV CONT 100 mls/hr .Q11H TANNA Administration Phenylephrine HCl 50 mg/ 250 ml in 250 mls @ 42 mls/hr 01/17/24 22:10 01/18/24 18:19 Dextrose IV CONT 140 mcg/min .[id number] TANNA 42 mls/hr Administration Protocol 140 MCG/MIN Fentanyl Citrate 2,500 mcg in 250 mls @ 5 mls/hr 01/17/24 22:35 01/18/24 18:00 Fentanyl 2,500 Mcg/Ns 250 Ml IV CONT 50 mcg/hr .Q50H TANNA 5 mls/hr Titration Protocol 50 MCG/HR Midazolam HCl 100 mg in 100 mls @ 1 mls/hr 01/17/24 22:35 01/18/24 18:00 Versed 100 Mg/Ns 100 Ml IV CONT 2 mg/hr .Q72H TANNA 2 mls/hr Titration Protocol 1 MG/HR Epinephrine HCl 4 mg/ Dextrose 254 mls @ 19.05 mls/hr 01/18/24 12:30 IV CONT .[id number] TANNA Protocol 5 MCG/MIN Albumin Human 100 mls @ 60 mls/hr 01/18/24 09:30 01/18/24 18:11 Albutein IVPB 01/19/24 05:09 Infused Q6H TANNA Infusion Vancomycin HCl 1,750 mg in 500 mls @ 250 mls/hr 01/18/24 18:00 01/18/24 18:00 Vancomycin 1,750 Mg/Ns 500 Ml IVPB 01/18/24 19:59 250 mls/hr ONCE ONE Administration Multi-Ingred Cream/Lotion/Oil/Oint 1 applic 01/18/24 09:00 01/18/24 07:54 Mineral Oil/White Petrolatum Ointment EACH EYE 1 applic Q12HR TANNA Administration Nabumetone 750 mg 01/17/24 21:00 Nabumetone 750 Mg Tablet PO Q12HR TANNA Ondansetron HCl 4 mg 01/17/24 12:42 01/17/24 12:51 Ondansetron Inj 4 Mg/2 Ml Vial IV PUSH 4 mg Q4H PRN Administration Nausea Ondansetron HCl 4 mg 01/17/24 15:19 Ondansetron Hcl Odt 4 Mg Tablet PO Q6H PRN Nausea Oxycodone HCl 5 mg 01/17/24 15:19 Oxycodone Hcl (*Crx) 5 Mg Tab Ir PO Q6-8H PRN Pain (Scale Score 7-10) Pantoprazole Sodium 40 mg 01/18/24 09:00 01/18/24 07:51 Pantoprazole 40 Mg Tablet PO 40 mg DAILY TANNA Administration Sodium Chloride 10 ml 01/17/24 22:00 01/18/24 14:18 Central Line Flush IV PUSH 10 ml Q8HR TANNA Administration Sodium Chloride 20 ml 01/17/24 16:51 Central Line Flush IV PUSH PRN PRN after blood draws Sumatriptan Succinate 50 mg 01/17/24 15:19 Sumatriptan Succinate 25 Mg Tablet PO Q8H PRN Headache Tamoxifen Citrate 20 mg 01/18/24 09:00 01/18/24 07:54 Tamoxifen Citrate (*Chemo) 10 Mg Tablet PO 20 mg DAILY TANNA Administration Vancomycin HCl 1 each 01/17/24 16:30 Vancomycin For Acute Kidney Injury IVPB PRN PRN Vancomycin Protocol Radiology Results: ITS Impressions Abdomen/Pelvis CT 01/17/24 10:23 IMPRESSION: 1. 11 mm stone at right ureteropelvic junction with mild right hydronephrosis. 2. 1 mm nonobstructing left kidney stone. 3. 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 Ureter Stent X-Ray 01/17/24 15:20 IMPRESSION: 1. Persistent stone at the right ureteropelvic junction with placement of a right internal ureteral stent in expected position. Is unclear the stone has been removed on the final image and would correlate with procedure note for further detail. Renal Ultrasound 01/17/24 19:03 IMPRESSION: 1. 7.2 cm left renal cyst. Otherwise normal kidneys with no hydronephrosis. Abdomen X-Ray 01/17/24 23:21 IMPRESSION: 1. Endotracheal tube and nasogastric tube in expected positions as detailed above. 2. Unchanged mild elevation of the right hemidiaphragm with streaky atelectasis versus less likely pneumonia at the bilateral lower lung zones. Chest X-Ray 01/18/24 06:22 IMPRESSION: 1. Mild atelectasis in the lower lung zones. Labs Labs: Laboratory Results - last 24 hr 01/17/24 01/17/24 01/17/24 15:46 19:36 19:49 WBC RBC Hgb Hct MCV MCH MCHC RDW Plt Count MPV Immature Gran % (Auto) Neut % (Auto) Lymph % (Auto) [place] % (Auto) Eos % (Auto) Baso % (Auto) Lymph # (Auto) [place] # (Auto) Eos # (Auto) Baso # (Auto) Abs Immat Gran (auto) Absolute Neuts (auto) Absolute Nucleated RBC Total Counted Neutrophils % (Manual) Band Neutrophils % Lymphocytes % (Manual) Monocytes % (Manual) Nucleated RBC % Abs Neuts (Manual) Abs Lymphs (Manual) Abs Monocytes (Manual) Platelet Estimate % Immature Plt Fraction Schistocytes Puncture Site Artline ABG pH 7.272 L* ABG pCO2 35.3 ABG pO2 320.3 H ABG PO2/FiO2 Ratio 3.20 ABG HCO3 15.9 L ABG O2 Saturation 99.7 ABG O2 Content 16.7 ABG Base Excess -10.0 A-a Gradient 357.4 Oxyhemoglobin 99.1 Carboxyhemoglobin 0.3 Methemoglobin 0.3 Reduced Hemoglobin 0.3 Total Hemoglobin 11.4 L O2 Delivery Device High flow therapy O2 Liters/Min 45.0 Minute Volume Vent Rate Vent Mode FiO2 100 Tidal Volume PEEP Peak Inspir Pressure Pressure Support Sodium Potassium Chloride Carbon Dioxide Anion Gap BUN Creatinine Estim Creat Clear Calc Estimated GFR Glucose POC Capillary Glucose Lactic Acid 5.7 H* Calcium Phosphorus Magnesium Total Bilirubin AST ALT Alkaline Phosphatase Total Protein Albumin TSH (Reflex) Nasal MRSA (PCR) Not detected Random Vancomycin 01/17/24 01/17/24 01/17/24 19:56 19:56 23:43 WBC RBC Hgb Hct MCV MCH MCHC RDW Plt Count MPV Immature Gran % (Auto) Neut % (Auto) Lymph % (Auto) [place] % (Auto) Eos % (Auto) Baso % (Auto) Lymph # (Auto) [place] # (Auto) Eos # (Auto) Baso # (Auto) Abs Immat Gran (auto) Absolute Neuts (auto) Absolute Nucleated RBC Total Counted Neutrophils % (Manual) Band Neutrophils % Lymphocytes % (Manual) Monocytes % (Manual) Nucleated RBC % Abs Neuts (Manual) Abs Lymphs (Manual) Abs Monocytes (Manual) Platelet Estimate % Immature Plt Fraction Schistocytes Puncture Site Artline ABG pH 7.258 L* ABG pCO2 35.5 ABG pO2 358.4 H ABG PO2/FiO2 Ratio 3.98 ABG HCO3 15.5 L ABG O2 Saturation 99.7 ABG O2 Content 18.1 ABG Base Excess -10.7 A-a Gradient 246.9 Oxyhemoglobin 99.4 Carboxyhemoglobin 0.3 Methemoglobin 0.1 Reduced Hemoglobin 0.2 Total Hemoglobin 12.3 O2 Delivery Device Ventilator O2 Liters/Min Not Reportable Minute Volume Not Reportable Vent Rate 22 Vent Mode Cmv FiO2 90 Tidal Volume 350 PEEP 5 Peak Inspir Pressure Not Reportable Pressure Support Not Reportable Sodium 135 L Potassium 4.1 Chloride 102 Carbon Dioxide 16 L Anion Gap 17 H BUN 34 H Creatinine 3.10 H Estim Creat Clear Calc 16 Estimated GFR 14 L Glucose 146 H POC Capillary Glucose Lactic Acid 5.7 H* Cancelled Calcium 7.2 L Phosphorus Magnesium 1.7 Total Bilirubin AST ALT Alkaline Phosphatase Total Protein Albumin TSH (Reflex) 1.010 Nasal MRSA (PCR) Random Vancomycin 01/18/24 01/18/24 01/18/24 03:31 03:44 08:55 WBC 39.4 H RBC 3.09 L Hgb 10.2 L Hct 30.6 L MCV 99.0 MCH 33.0 MCHC 33.3 RDW 14.0 Plt Count 71 L MPV 11.1 H Immature Gran % (Auto) Not Reportable Neut % (Auto) Not Reportable Lymph % (Auto) Not Reportable [place] % (Auto) Not Reportable Eos % (Auto) Not Reportable Baso % (Auto) Not Reportable Lymph # (Auto) Not Reportable [place] # (Auto) Not Reportable Eos # (Auto) Not Reportable Baso # (Auto) Not Reportable Abs Immat Gran (auto) Not Reportable Absolute Neuts (auto) Not Reportable Absolute Nucleated RBC Not Reportable Total Counted 100 Neutrophils % (Manual) 82 H Band Neutrophils % 7 H Lymphocytes % (Manual) 6 L Monocytes % (Manual) 5 Nucleated RBC % Not Reportable Abs Neuts (Manual) 35.06 H Abs Lymphs (Manual) 2.36 Abs Monocytes (Manual) 1.97 H Platelet Estimate Decreased % Immature Plt Fraction 9.6 Schistocytes None seen Puncture Site Artline Artline ABG pH 7.219 L* 7.103 L* ABG pCO2 39.0 34.8 L ABG pO2 189.3 H 252.1 H ABG PO2/FiO2 Ratio 2.91 3.60 ABG HCO3 15.6 L 10.6 L ABG O2 Saturation 99.1 99.3 ABG O2 Content 16.1 15.9 L ABG Base Excess -11.4 -17.9 A-a Gradient 231.7 209.6 Oxyhemoglobin 98.9 99.1 Carboxyhemoglobin 0.3 Methemoglobin 0.0 Reduced Hemoglobin 0.8 Total Hemoglobin 11.3 L 11.0 L O2 Delivery Device Ventilator Ventilator O2 Liters/Min Not Reportable Not Reportable Minute Volume Not Reportable Not Reportable Vent Rate 24 28 Vent Mode Cmv Cmv FiO2 65 70 Tidal Volume 350 400 PEEP 8 8 Peak Inspir Pressure Not Reportable Not Reportable Pressure Support Not Reportable Not Reportable Sodium 143 Potassium 4.4 Chloride 94 L Carbon Dioxide 27 Anion Gap 22 H BUN 36 H Creatinine 3.40 H Estim Creat Clear Calc 14 Estimated GFR 13 L Glucose 158 H POC Capillary Glucose Lactic Acid 11.6 H* Calcium 6.0 L Phosphorus 6.0 H Magnesium 1.7 Total Bilirubin 1.3 AST 48 H ALT 25 Alkaline Phosphatase 83 Total Protein 5.0 L Albumin 2.8 L TSH (Reflex) Nasal MRSA (PCR) Random Vancomycin 01/18/24 01/18/24 01/18/24 09:30 11:47 13:01 WBC RBC Hgb Hct MCV MCH MCHC RDW Plt Count MPV Immature Gran % (Auto) Neut % (Auto) Lymph % (Auto) [place] % (Auto) Eos % (Auto) Baso % (Auto) Lymph # (Auto) [place] # (Auto) Eos # (Auto) Baso # (Auto) Abs Immat Gran (auto) Absolute Neuts (auto) Absolute Nucleated RBC Total Counted Neutrophils % (Manual) Band Neutrophils % Lymphocytes % (Manual) Monocytes % (Manual) Nucleated RBC % Abs Neuts (Manual) Abs Lymphs (Manual) Abs Monocytes (Manual) Platelet Estimate % Immature Plt Fraction Schistocytes Puncture Site ABG pH ABG pCO2 ABG pO2 ABG PO2/FiO2 Ratio ABG HCO3 ABG O2 Saturation ABG O2 Content ABG Base Excess A-a Gradient Oxyhemoglobin Carboxyhemoglobin Methemoglobin Reduced Hemoglobin Total Hemoglobin O2 Delivery Device O2 Liters/Min Minute Volume Vent Rate Vent Mode FiO2 Tidal Volume PEEP Peak Inspir Pressure Pressure Support Sodium Potassium Chloride Carbon Dioxide Anion Gap BUN Creatinine Estim Creat Clear Calc Estimated GFR Glucose POC Capillary Glucose 149 H Lactic Acid 13.8 H* 14.3 H* Calcium Phosphorus Magnesium Total Bilirubin AST ALT Alkaline Phosphatase Total Protein Albumin TSH (Reflex) Nasal MRSA (PCR) Random Vancomycin 01/18/24 01/18/24 14:33 15:50 WBC RBC Hgb Hct MCV MCH MCHC RDW Plt Count MPV Immature Gran % (Auto) Neut % (Auto) Lymph % (Auto) [place] % (Auto) Eos % (Auto) Baso % (Auto) Lymph # (Auto) [place] # (Auto) Eos # (Auto) Baso # (Auto) Abs Immat Gran (auto) Absolute Neuts (auto) Absolute Nucleated RBC Total Counted Neutrophils % (Manual) Band Neutrophils % Lymphocytes % (Manual) Monocytes % (Manual) Nucleated RBC % Abs Neuts (Manual) Abs Lymphs (Manual) Abs Monocytes (Manual) Platelet Estimate % Immature Plt Fraction Schistocytes Puncture Site Artline ABG pH 7.217 L* ABG pCO2 34.2 L ABG pO2 199.8 H ABG PO2/FiO2 Ratio 3.33 ABG HCO3 13.6 L ABG O2 Saturation 99.1 ABG O2 Content 15.2 L ABG Base Excess -13.1 A-a Gradient 190.4 Oxyhemoglobin 99.0 Carboxyhemoglobin Methemoglobin Reduced Hemoglobin Total Hemoglobin 10.6 L O2 Delivery Device Ventilator O2 Liters/Min Not Reportable Minute Volume Not Reportable Vent Rate 28 Vent Mode Cmv FiO2 60 Tidal Volume 400 PEEP 8 Peak Inspir Pressure Not Reportable Pressure Support Not Reportable Sodium Potassium Chloride Carbon Dioxide Anion Gap BUN Creatinine Estim Creat Clear Calc Estimated GFR Glucose POC Capillary Glucose Lactic Acid Calcium Phosphorus Magnesium Total Bilirubin AST ALT Alkaline Phosphatase Total Protein Albumin TSH (Reflex) Nasal MRSA (PCR) Random Vancomycin 14.4
[2024-01-18] MEDS: NOREPINEPHRINE 8 MG/D5W 250 ML 8 MG/250 ML BAG 54.38 MG IV CONT (23:57)
[2024-01-19] VITALS (87 sets, daily range): BP systolic 102–150; BP diastolic 41–87; PULSE 68–741; RESP 20–28; TEMP 36.9–38.3; O2SAT 90–99
[2024-01-19 00:40] LABS: Glucose Point of Care < 20 mg/dl (65-105)
[2024-01-19] MEDS: DEXTROSE 50% 25 GM/50 ML SYRINGE IV PUSH ×3 (00:40→09:09)
--- NOTE | 2024-01-19 00:45 | PC.NURSE ---
Updated Jerald BOBBIN INSPECTOR regarding low blood sugar reading. Hypoglycemia set ordered. Q1H accuchecks x4, follow by Q2h x2 and then Q4hr from then on if stable.
[2024-01-19 01:05] LABS: Glucose Point of Care < 20 mg/dl (65-105)
--- NOTE | 2024-01-19 01:15 | PC.NURSE ---
Jhoan Benitez [employer]OL notified for continued hypoglycemia, repeat D50 amp push x1 now per hypoglycemia orders, get Serum Glucose, Update Dr. Olsen.
[2024-01-19 01:24] LABS: Glucose 180 mg/dL (65-110)
[2024-01-19 01:33] LABS: Glucose Point of Care 243 mg/dl (65-105)
[2024-01-19 01:33] LABS: Glucose Point of Care 35 mg/dl (65-105)
--- NOTE | 2024-01-19 01:42 | PC.NURSE ---
Jhoan Benitez NP notified regarding hypoglycemia events of patient. Patient has decrease perfusion to fingertips. When checked from Arterial Line, patient was found NOT to be hypoglycemic. Okay for Q4hr blood sugar checks from Jhoan Benitez NP. Do not check from fingertips, draw from Arterial Line.
[2024-01-19] MEDS: ALBUMIN HUMAN 25% 25 GM/100 ML 100 ML IVPB (02:32)
[2024-01-19 02:42] LABS: Glucose Point of Care 206 mg/dl (65-105)
[2024-01-19] MEDS: SODIUM BICARBONATE 8.4% 150 MEQ in WATER, STERILE FOR INJECTION 950 ML 100 MEQ IV CONT (03:24)
[2024-01-19] MEDS: AZTREONAM 1 GM in SODIUM CHLORIDE 0.9% IV 50 ML 100 ML IVPB ×2 (05:35→18:11)
[2024-01-19] MEDS: HYDROCORTISONE SODIUM SUCCINATE 100 MG/2 ML VIAL IV PUSH ×3 (05:35→21:30)
[2024-01-19 05:36] LABS: Hemoglobin 8.4 g/dL (12.0-15.0); Immature Platelet Fraction Pct 16.6 % (0.9-11.2); Mean Corpuscular HGB Conc 33.6 g/dl (32-36); Mean Corpuscular Hemoglobin 33.1 pg (26-34); Mean Corpuscular Volume 98.4 fl (80-100); Mean Platelet Volume 11.7 fl (7.4-10.4); Platelet Count Result 28 k/mm3 (150-375); Red Blood Count 2.54 M/mm3 (4.2-5.4); Red Cell Distribution Width 14.4 % (11.5-14.5); White Blood Count 28.8 K/mm3 (4.5-10.0)
[2024-01-19] MEDS: CENTRAL LINE FLUSH 10 ML IV PUSH ×3 (05:36→21:36)
[2024-01-19 05:48] LABS: INR 2.6; Prothrombin Time 27.8 Seconds (11.1-14.7)
[2024-01-19 05:48] LABS: Alveolar/Arterial O2 Gradient 191.5 mmHg; Base Excess ABG -4.1 mEq/l (+/-2.0); Carboxyhemoglobin 0.4 % THb (0-2.0); Fractional Inspired Oxygen 50 %; HCO3 ABG 20.2 mEq/l (22.0-26.0); Methemoglobin ABG 0.3 %THb (0-1.5); Oxygen Content ABG 18.6 %vol (16.0-22.0); Oxygen Saturation ABG 98.5 % (95.0-100.0); Oxyhemoglobin 97.9 % THb (90.0-100.0); PCO2 ABG 34.8 mmHg (35.0-45.0); PO2 ABG 125.9 mmHg (80.0-100.0); PO2 FiO2 Ratio Arterial Blood 2.52 %; Reduced Hemoglobin 1.4 %THb (0-5.0); Total Hemoglobin 13.4 g/dL (12.0-18.0); pH ABG 7.382 (7.350-7.450)
[2024-01-19 05:49] LABS: Partial Thromboplastin Time 37.9 Seconds (22.3-36.8)
[2024-01-19 05:49] LABS: Device VENTILATOR; Site Drawn ARTLINE
[2024-01-19 05:50] LABS: Arterial Blood Gas PEEP 8 cmH2O; Arterial Blood Gas Tidal Volume 400 ml; Arterial Blood Gas Vent Mode CMV; Arterial Blood Gas Ventilator rate 28 /MIN
[2024-01-19 05:51] LABS: Lactic Acid Reflex 9.3 mmol/L (0.7-2.0)
[2024-01-19 05:52] LABS: Albumin Level 3.7 g/dL (3.5-5.1); Alkaline Phosphatase 114 U/L (38-126); Anion Gap 23 mmol/L (4-12); Bilirubin,Total 2.5 mg/dL (0.2-1.3); Blood Urea Nitrogen 39 mg/dL (7-17); Calcium 6.5 mg/dL (8.4-10.2); Carbon Dioxide 21 mmol/L (22-30); Chloride 83 mmol/L (98-107); Glucose 141 mg/dL (65-110); Magnesium 1.4 mg/dL (1.6-2.3); Potassium 4.5 mmol/L (3.4-5.0); Sodium 127 mmol/L (137-145)
[2024-01-19 05:54] LABS: Alanine Aminotransferase 447 U/L (6-35); Estimated CRCL calculation 12 ml/min; Estimated Glomerular Filt Rate 10
[2024-01-19 06:22] LABS: Neutrophils Percent Manual 85 % (46-73)
[2024-01-19 06:23] LABS: Band Neutrophils Percent 7 % (0-6); Lymphocytes Absolute Manual 1.44 K/mm3 (1.1-4.5); Lymphocytes Percent Manual 5 % (18-44); Metamyelocytes Percent 1 %; Monocytes Absolute Manual 0.57 K/mm3 (0.1-0.90); Monocytes Percent Manual 2 % (3-9); Neutrophils Absolute Manual 26.49 K/mm3 (1.7-7.2); Platelet Estimate Decreased (Adequate); Schistocytes None Seen
[2024-01-19 06:52] LABS: Aspartate Amino Transferase 1018 U/L (14-36); Fibrinogen 335 mg/dl (215-510)
[2024-01-19] MEDS: NOREPINEPHRINE 8 MG/D5W 250 ML 8 MG/250 ML BAG 18.75 MG IV CONT (06:53)
[2024-01-19 07:11] LABS: D Dimer 9.68 ug/mL (<0.48)
[2024-01-19 08:32] LABS: Reflex Lactic Acid Yes or No Add Lactic
[2024-01-19] MEDS: PANTOPRAZOLE SODIUM IV 40 MG VIAL IV PUSH ×2 (09:06→21:35)
[2024-01-19] MEDS: MINERAL OIL/WHITE PETROLATUM OINTMENT 1 APPLIC EACH EYE ×2 (09:06→21:36)
[2024-01-19] MEDS: MAGNESIUM SULF 2 GM/WATER 50ML 2 GM/50 ML BAG IVPB (09:08)
[2024-01-19 09:12] LABS: Glucose Point of Care 65 mg/dl (65-105)
[2024-01-19 09:20] LABS: Lactic Acid 7.6 mmol/L (0.7-2.0)
--- NOTE | 2024-01-19 09:28 | WPDINTPN ---
Progress Note: A&P Assessment and Plan (1) Septic shock: Code(s): A41.9 - Sepsis, unspecified organism; R65.21 - Severe sepsis with septic shock Status: Acute Assessment and Plan: Septic shock likely related to pyelonephritis -right UPJ stone with hydronephrosis status post -hypotensive in the ER, received 2 L IV fluids -01/16: Status post cystoscopy, right retrograde pyelogram, right ureteral stent placement 6 [place] contour -anesthesia placed central line and art line in the OR -patient received additional 2 L IV fluids in the ICU, with multiple bicarb IV pushes Continue bicarb infusion for now -patient is OFF epinephrine, Claudoi-Synephrine, vasopressin -remains on Levophed will wean to maintain SBP > 120 mmHg or MAP > 70 mmHg -lactic acid has started to trend down, continue to monitor -patient has multiple allergies, has been started on aztreonam and vancomycin (01/16) patient did get 1 dose of ciprofloxacin in the ER -continue stress dose steroids -anuric, with renal dysfunction -shock liver with elevated LFTs and bilirubin -01/16: Urine cultures growing Gram-negative bacilli 01/16: Blood cultures pending (2) Acute respiratory failure: Code(s): J96.00 - Acute respiratory failure, unspecified whether with hypoxia or hypercapnia Status: Acute Assessment and Plan: Acute respiratory failure likely related to metabolic acidosis, severe septic shock -01/17/2024: Patient was intubated -chest x-ray reviewed -ABG significantly improved -remains on CMV mode of ventilation, peep of 5, 50% FiO2. wean FiO2 to maintain O2 sats > 92% -sedated with fentanyl and Versed infusion, maintain RASS of -2 (3) Pyelonephritis: Code(s): N12 - Tubulo-interstitial nephritis, not specified as acute or chronic Status: Acute Assessment and Plan: Patient presented with generalized weakness and diffuse abdominal pain, CT scan of the abdomen and pelvis showed right UPJ stone with hydronephrosis and possible pyelonephritis since UA revealed UTI -continue antibiotics as above -01/16: Status post cystoscopy, right retrograde pyelogram, right ureteral stent placement 6 [place] contour (4) Acute kidney injury: Code(s): N17.9 - Acute kidney failure, unspecified Status: Acute Assessment and Plan: Patient with acute kidney injury likely related to septic shock, ATN, hypotension, pyelonephritis. Patient on furosemide, spironolactone and atenolol at home. -has been adequately fluid-resuscitated and albumin -will maintain mean arterial pressures > 70 mmHg at all times for adequate end organ perfusion -continue bicarb infusion -patient with thrombocytopenia, elevated INR, will transfuse platelets and FFP, will place dialysis catheter and start dialysis today. -Discussed with Nephrology and he is agreeable with plan of dialysis -continue monitor renal function, urine output and electrolytes (5) Right ureteral stone: Code(s): N20.1 - Calculus of ureter Status: Acute Assessment and Plan: 01/16: Status post cystoscopy, right retrograde pyelogram, right ureteral stent placement 6 [place] contour -urology following (6) Metabolic acidosis: Code(s): E87.20 - Acidosis, unspecified Status: Acute Assessment and Plan: IMPROVING Severe metabolic acidosis with elevated lactic acidosis -status post multiple doses of sodium bicarb IV pushes -on sodium bicarb infusion -maintain adequate mean arterial pressures (7) Shock liver: Code(s): K72.00 - Acute and subacute hepatic failure without coma Status: Acute Assessment and Plan: Shock liver likely related to severe septic shock, hypotension, along with coagulopathy. INR 2.6. Fibrinogen levels within normal limits -will transfuse FFP (8) Thrombocytopenia: Code(s): D69.6 - Thrombocytopenia, unspecified Status: Acute Assessment and Plan: Thrombocytopenia likely related to septic shock -will transfuse 2 units of platelets since after place a dialysis catheter Plan DVT prophylaxis: Lovenox on hold, SCDs Stress ulcer prophylaxis: Protonix IV q.12 hours Nutrition: NPO for now Code Status: DNR Critical Care Time Spent: 44 minutes Discussed with patient's , daughter and updated them with patient's condition and plan of care. I discussed with them regarding dialysis to which that agreeable, they also aware that patient will be receiving blood products. I did explain to them that she is off 3 blood pressure medications and remains on 1 blood pressure support medication at this time. They are also aware that her liver has taken a hit secondary to the septic shock. Patient will be going to CT scan of the chest abdomen and pelvis which they are aware. I answered all questions Due to a high probability of clinically significant, life threatening deterioration, the patient required my highest level of preparedness to intervene emergently and I personally spent this critical care time directly and personally managing the patient. This critical care time included obtaining a history; examining the patient; pulse oximetry; ordering and review of studies; arranging urgent treatment with development of a management plan; evaluation of patient's response to treatment; frequent reassessment; and discussions with other providers. It was exclusive of separately billable procedures and treating other patients and teaching time. Please see Assessment and Plan section and the rest of the note for further information on patient assessment and treatment This dictation may have been done utilizing a voice recognition system. Attempts have been made to correct errors. However, there may be uncorrected grammatical, spelling, and recognitions errors present. Subjective Date/time seen: 01/19/24 09:28 Interval history: Reason for consult: Septic shock, pyelonephritis, kidney stones, hydronephrosis, shock liver, acute respiratory failure, thrombocytopenia 01/19/2024: Patient seen and examined in the ICU, remains intubated on CMV mode of ventilation, peep of 8, 50% FiO2. Patient remains on Levophed at 10 mcg/min. OFF epinephrine, Claudio-Synephrine and vasopressin remains on sodium bicarb infusion. Patient has been hypoglycemic requiring D50. Worsening creatinine,anuric. Shock liver, thrombocytopenia, elevated INR. Lactic acid, WBC trending down. Drop in hemoglobin. Hyponatremia Review of Systems Review of Systems: ROS unobtainable: Yes unobtainable due to endotracheal tube, unobtainable due to medical condition and unobtainable due to mental status Exam Narrative: General: Intubated and sedated HEENT:? Pupils are equal and reactive, sclera is clear. ETT in place Neck:? Supple Respiratory:? Coarse breath with crackles bilaterally, and wheezing, adequate air entry Cardiac:? S1-S2 is normal, tachycardia Abdomen:? Soft, nontender, nondistended, protuberant, hypoactive bowel sounds Extremities:? Bilateral lower extremity edema, dopplerable pedal pulses Neuro:? Patient intubated, sedated, does not open her eyes or follow simple commands Skin:? Purple discoloration of fingers of bilateral hands, bilateral feet discoloration much improved this morning Psych:? Unable to assess Objective Data Vital Signs Vital Signs: Vital Signs - 24 hr 01/18/24 09:44 01/18/24 09:40 01/18/24 09:46 Temperature Pulse Rate 102 H 102 H 102 H Respiratory Rate Blood Pressure 143/79 H 141/78 H 141/78 H Pulse Oximetry Oxygen Delivery Fraction of Inspired Oxygen 01/18/24 09:50 01/18/24 10:00 01/18/24 10:00 Temperature 99.5 F Pulse Rate 101 H 101 H 99 Respiratory Rate 28 H Blood Pressure 131/74 129/74 Pulse Oximetry 100 Oxygen Delivery Fraction of Inspired Oxygen 01/18/24 11:00 01/18/24 10:00 01/18/24 10:00 Temperature 99.6 F Pulse Rate 104 H 104 H 104 H Respiratory Rate 28 H Blood Pressure 128/73 129/74 129/74 Pulse Oximetry 100 Oxygen Delivery Fraction of Inspired Oxygen 01/18/24 10:00 01/18/24 10:00 01/18/24 10:00 Temperature Pulse Rate 104 H 104 H 104 H Respiratory Rate 28 H Blood Pressure 129/74 129/74 Pulse Oximetry Oxygen Delivery Fraction of Inspired Oxygen 01/18/24 10:00 01/18/24 12:00 01/18/24 12:00 Temperature 99.8 F H Pulse Rate 104 H 105 H 105 H Respiratory Rate 28 H 28 H Blood Pressure 132/74 133/77 Pulse Oximetry 99 Oxygen Delivery Fraction of Inspired Oxygen 01/18/24 12:00 01/18/24 12:00 01/18/24 12:00 Temperature Pulse Rate 105 H 103 H Respiratory Rate 28 H Blood Pressure Pulse Oximetry 100 Oxygen Delivery Mechanical Ventilation Fraction of Inspired Oxygen 70 70 01/18/24 12:27 01/18/24 12:46 01/18/24 12:45 Temperature Pulse Rate 103 H 103 H 105 H Respiratory Rate Blood Pressure 129/75 129/75 129/75 Pulse Oximetry Oxygen Delivery Fraction of Inspired Oxygen 01/18/24 10:34 01/18/24 12:00 01/18/24 13:00 Temperature Pulse Rate 101 H 105 H 104 H Respiratory Rate Blood Pressure 133/77 128/74 Pulse Oximetry 100 Oxygen Delivery Mechanical Ventilation Fraction of Inspired Oxygen 70 01/18/24 12:00 01/18/24 12:00 01/18/24 12:00 Temperature Pulse Rate 105 H 105 H 105 H Respiratory Rate 28 H 28 H Blood Pressure 133/77 Pulse Oximetry Oxygen Delivery Fraction of Inspired Oxygen 01/18/24 13:00 01/18/24 13:35 01/18/24 14:00 Temperature 99.8 F H Pulse Rate 94 95 102 H Respiratory Rate 28 H Blood Pressure 128/72 136/78 Pulse Oximetry 99 99 Oxygen Delivery Mechanical Ventilation Fraction of Inspired Oxygen 70 01/18/24 14:10 01/18/24 14:10 01/18/24 14:00 Temperature 100.0 F H Pulse Rate 105 H 115 H 94 Respiratory Rate 28 H Blood Pressure 134/77 128/73 130/73 Pulse Oximetry 99 Oxygen Delivery Fraction of Inspired Oxygen 01/18/24 14:25 01/18/24 14:13 01/18/24 14:28 Temperature Pulse Rate 94 96 96 Respiratory Rate Blood Pressure 120/69 118/66 118/66 Pulse Oximetry Oxygen Delivery Fraction of Inspired Oxygen 01/18/24 14:00 01/18/24 14:00 01/18/24 14:00 Temperature Pulse Rate 96 94 96 Respiratory Rate 28 H 28 H Blood Pressure 121/69 Pulse Oximetry Oxygen Delivery Fraction of Inspired Oxygen 01/18/24 14:00 01/18/24 15:00 01/18/24 16:00 Temperature 99.6 F Pulse Rate 94 95 95 Respiratory Rate 28 H Blood Pressure 118/67 113/63 Pulse Oximetry 99 Oxygen Delivery Fraction of Inspired Oxygen 01/18/24 16:00 01/18/24 16:00 01/18/24 16:00 Temperature Pulse Rate 95 95 91 Respiratory Rate Blood Pressure 113/63 113/62 111/62 Pulse Oximetry Oxygen Delivery Fraction of Inspired Oxygen 01/18/24 16:00 01/18/24 16:00 01/18/24 16:00 Temperature Pulse Rate 92 91 91 Respiratory Rate 28 H 28 H Blood Pressure Pulse Oximetry Oxygen Delivery Fraction of Inspired Oxygen 01/18/24 16:00 01/18/24 16:00 01/18/24 17:00 Temperature 100.5 F H Pulse Rate 93 92 Respiratory Rate 28 H 28 H Blood Pressure 117/64 Pulse Oximetry 100 99 Oxygen Delivery Mechanical Ventilation Fraction of Inspired Oxygen 60 60 01/18/24 17:14 01/18/24 16:00 01/18/24 16:34 Temperature 100.3 F H Pulse Rate 91 90 96 Respiratory Rate 28 H Blood Pressure 116/64 113/65 Pulse Oximetry 98 97 Oxygen Delivery Mechanical Ventilation Fraction of Inspired Oxygen 60 01/18/24 18:00 01/18/24 18:18 01/18/24 18:19 Temperature 100.3 F H Pulse Rate 90 96 96 Respiratory Rate 28 H Blood Pressure 113/65 109/57 L 109/57 L Pulse Oximetry 98 Oxygen Delivery Fraction of Inspired Oxygen 01/18/24 18:00 01/18/24 18:00 01/18/24 18:00 Temperature Pulse Rate 101 H 94 95 Respiratory Rate 32 H Blood Pressure 110/58 L Pulse Oximetry Oxygen Delivery Fraction of Inspired Oxygen 01/18/24 18:00 01/18/24 18:00 01/18/24 18:00 Temperature Pulse Rate 95 95 100 Respiratory Rate 31 H Blood Pressure 111/58 L 111/58 L Pulse Oximetry Oxygen Delivery Fraction of Inspired Oxygen 01/18/24 18:33 01/18/24 19:14 01/18/24 19:15 Temperature Pulse Rate 95 91 91 Respiratory Rate Blood Pressure 108/59 L 116/60 116/60 Pulse Oximetry Oxygen Delivery Fraction of Inspired Oxygen 01/18/24 19:25 01/18/24 19:40 01/18/24 19:55 Temperature Pulse Rate 92 93 92 Respiratory Rate Blood Pressure 135/69 132/68 132/68 Pulse Oximetry Oxygen Delivery Fraction of Inspired Oxygen 01/18/24 20:00 01/18/24 20:00 01/18/24 20:00 Temperature Pulse Rate 92 92 92 Respiratory Rate Blood Pressure 132/78 132/78 132/78 Pulse Oximetry Oxygen Delivery Fraction of Inspired Oxygen 01/18/24 20:00 01/18/24 20:00 01/18/24 20:00 Temperature Pulse Rate 92 92 92 Respiratory Rate 28 H 28 H Blood Pressure 132/78 Pulse Oximetry Oxygen Delivery Fraction of Inspired Oxygen 01/18/24 20:15 01/18/24 19:00 01/18/24 20:00 Temperature 100.5 F H 100.5 F H Pulse Rate 91 91 92 Respiratory Rate 28 H 28 H Blood Pressure 130/66 122/63 132/78 Pulse Oximetry 96 91 Oxygen Delivery Fraction of Inspired Oxygen 01/18/24 20:00 01/18/24 20:00 01/18/24 20:25 Temperature Pulse Rate 92 90 Respiratory Rate 28 H Blood Pressure Pulse Oximetry 97 98 Oxygen Delivery Mechanical Ventilation Mechanical Ventilation Fraction of Inspired Oxygen 60 60 60 01/18/24 20:45 01/18/24 21:00 01/18/24 21:05 Temperature Pulse Rate 91 90 91 Respiratory Rate 28 H Blood Pressure 128/65 135/70 Pulse Oximetry Oxygen Delivery Fraction of Inspired Oxygen 01/18/24 20:00 01/18/24 21:00 01/18/24 21:29 Temperature 100.5 F H Pulse Rate 91 91 92 Respiratory Rate 28 H Blood Pressure 133/67 138/70 Pulse Oximetry 97 Oxygen Delivery Fraction of Inspired Oxygen 01/18/24 21:48 01/18/24 22:00 01/18/24 22:00 Temperature Pulse Rate 91 92 91 Respiratory Rate Blood Pressure 137/70 136/69 136/69 Pulse Oximetry Oxygen Delivery Fraction of Inspired Oxygen 01/18/24 22:00 01/18/24 22:00 01/18/24 22:00 Temperature Pulse Rate 91 91 91 Respiratory Rate 28 H Blood Pressure 136/69 136/69 Pulse Oximetry Oxygen Delivery Fraction of Inspired Oxygen 01/18/24 22:00 01/18/24 22:05 01/18/24 22:00 Temperature Pulse Rate 91 90 91 Respiratory Rate 28 H Blood Pressure 131/68 Pulse Oximetry Oxygen Delivery Fraction of Inspired Oxygen 01/18/24 22:00 01/18/24 22:30 01/18/24 22:57 Temperature 100.5 F H Pulse Rate 91 90 92 Respiratory Rate 28 H Blood Pressure 135/69 135/70 135/71 Pulse Oximetry 97 Oxygen Delivery Fraction of Inspired Oxygen 01/18/24 23:19 01/18/24 23:15 01/18/24 23:00 Temperature 100.7 F H Pulse Rate 90 91 92 Respiratory Rate 28 H Blood Pressure 140/73 135/71 Pulse Oximetry 96 96 Oxygen Delivery Mechanical Ventilation Fraction of Inspired Oxygen 60 01/18/24 23:42 01/18/24 23:57 01/19/24 01:10 Temperature Pulse Rate 94 91 84 Respiratory Rate Blood Pressure 128/29 L 134/71 134/66 Pulse Oximetry Oxygen Delivery Fraction of Inspired Oxygen 01/19/24 01:30 01/19/24 00:00 01/19/24 00:00 Temperature Pulse Rate 83 88 88 Respiratory Rate Blood Pressure 139/69 134/70 134/70 Pulse Oximetry Oxygen Delivery Fraction of Inspired Oxygen 01/19/24 00:00 01/19/24 00:00 01/19/24 00:00 Temperature Pulse Rate 88 88 88 Respiratory Rate 28 H Blood Pressure 134/70 134/70 Pulse Oximetry Oxygen Delivery Fraction of Inspired Oxygen 01/19/24 00:00 01/19/24 00:19 01/19/24 00:30 Temperature Pulse Rate 88 90 89 Respiratory Rate 28 H Blood Pressure 136/71 137/72 Pulse Oximetry Oxygen Delivery Fraction of Inspired Oxygen 01/19/24 00:35 01/19/24 00:00 01/19/24 00:00 Temperature Pulse Rate 89 91 Respiratory Rate Blood Pressure 136/71 Pulse Oximetry Oxygen Delivery Fraction of Inspired Oxygen 60 01/19/24 00:00 01/19/24 00:00 01/19/24 01:00 Temperature 100.9 F H 100.8 F H Pulse Rate 88 88 83 Respiratory Rate 28 H 28 H 28 H Blood Pressure 134/70 140/70 Pulse Oximetry 95 95 94 Oxygen Delivery Mechanical Ventilation Fraction of Inspired Oxygen 60 01/19/24 01:55 01/19/24 01:45 01/19/24 01:47 Temperature Pulse Rate 93 82 81 Respiratory Rate Blood Pressure 140/73 134/67 Pulse Oximetry 94 Oxygen Delivery Mechanical Ventilation Fraction of Inspired Oxygen 60 01/19/24 02:00 01/19/24 02:00 01/19/24 02:00 Temperature Pulse Rate 93 93 93 Respiratory Rate Blood Pressure 139/73 139/73 137/73 Pulse Oximetry Oxygen Delivery Fraction of Inspired Oxygen 01/19/24 02:00 01/19/24 02:00 01/19/24 02:07 Temperature Pulse Rate 93 93 93 Respiratory Rate 28 H 28 H Blood Pressure 139/73 Pulse Oximetry Oxygen Delivery Fraction of Inspired Oxygen 01/19/24 02:00 01/19/24 02:00 01/19/24 02:15 Temperature 100.5 F H Pulse Rate 93 93 93 Respiratory Rate 28 H Blood Pressure 139/73 137/73 Pulse Oximetry 94 Oxygen Delivery Fraction of Inspired Oxygen 01/19/24 02:30 01/19/24 03:20 01/19/24 03:00 Temperature 100.4 F H Pulse Rate 79 78 80 Respiratory Rate 28 H Blood Pressure 131/69 136/72 133/71 Pulse Oximetry 94 Oxygen Delivery Fraction of Inspired Oxygen 01/19/24 03:30 01/19/24 03:40 01/19/24 03:50 Temperature Pulse Rate 79 78 92 Respiratory Rate Blood Pressure 133/71 127/69 150/87 H Pulse Oximetry Oxygen Delivery Fraction of Inspired Oxygen 01/19/24 04:10 01/19/24 04:20 01/19/24 04:00 Temperature Pulse Rate 79 79 79 Respiratory Rate Blood Pressure 139/80 124/65 133/75 Pulse Oximetry Oxygen Delivery Fraction of Inspired Oxygen 01/19/24 04:00 01/19/24 04:00 01/19/24 04:00 Temperature Pulse Rate 79 79 79 Respiratory Rate 28 H 28 H Blood Pressure 133/75 Pulse Oximetry Oxygen Delivery Fraction of Inspired Oxygen 01/19/24 04:00 01/19/24 04:00 01/19/24 05:00 Temperature 100.4 F H 100.1 F H Pulse Rate 79 87 Respiratory Rate 28 H 28 H Blood Pressure 133/75 106/60 Pulse Oximetry 96 95 Oxygen Delivery Fraction of Inspired Oxygen 50 01/19/24 04:00 01/19/24 05:18 01/19/24 05:33 Temperature Pulse Rate 79 86 74 Respiratory Rate 28 H Blood Pressure 123/68 120/64 Pulse Oximetry 97 Oxygen Delivery Mechanical Ventilation Fraction of Inspired Oxygen 50 01/19/24 05:48 01/19/24 06:00 01/19/24 06:00 Temperature Pulse Rate 76 77 75 Respiratory Rate Blood Pressure 126/67 125/66 125/66 Pulse Oximetry Oxygen Delivery Fraction of Inspired Oxygen 01/19/24 06:00 01/19/24 06:00 01/19/24 06:00 Temperature Pulse Rate 76 77 77 Respiratory Rate 28 H 28 H Blood Pressure 125/65 Pulse Oximetry Oxygen Delivery Fraction of Inspired Oxygen 01/19/24 06:08 01/19/24 06:12 01/19/24 06:13 Temperature Pulse Rate 76 75 75 Respiratory Rate 28 H Blood Pressure 122/63 131/68 Pulse Oximetry Oxygen Delivery Fraction of Inspired Oxygen 01/19/24 04:00 01/19/24 06:00 01/19/24 06:00 Temperature 100.0 F H Pulse Rate 81 76 Respiratory Rate Blood Pressure Pulse Oximetry Oxygen Delivery Fraction of Inspired Oxygen 01/19/24 06:15 01/19/24 06:30 01/19/24 06:40 Temperature Pulse Rate 75 75 86 Respiratory Rate Blood Pressure 126/65 126/67 Pulse Oximetry 96 Oxygen Delivery Mechanical Ventilation Fraction of Inspired Oxygen 50 01/19/24 06:53 08/22/24 06:53 01/19/24 07:59 Temperature Pulse Rate 88 87 87 Respiratory Rate Blood Pressure 118/62 118/63 Pulse Oximetry 96 Oxygen Delivery Mechanical Ventilation Fraction of Inspired Oxygen 50 01/19/24 08:23 Temperature Pulse Rate Respiratory Rate Blood Pressure Pulse Oximetry 94 Oxygen Delivery Mechanical Ventilation Fraction of Inspired Oxygen 40 Intake/Output Intake/Output: Intake & Output 01/16/24 01/17/24 01/18/24 01/19/24 23:59 23:59 23:59 23:59 Intake Total 4514.6 6609.8 1188.6 Output Total 140 200 85 Balance 4374.6 6409.8 1103.6 Meds/Results Medications: Active Medications Generic Name Dose Route Start Last Admin Trade Name Freq PRN Reason Stop Dose Admin Atorvastatin Calcium 10 mg 01/18/24 09:00 Atorvastatin 10 Mg Tablet PO DAILY TANNA Dextrose 12.5 gm 01/19/24 00:44 01/19/24 01:08 Dextrose 50% 25 Gm/50 Ml Syringe IV PUSH 12.5 gm PRN PRN Administration Hypoglycemia Protocol Duloxetine HCl 120 mg 01/18/24 09:00 01/18/24 07:54 Duloxetine Hcl 60 Mg Capsule.Dr PO 120 mg DAILY TANNA Administration Empagliflozin 10 mg 01/18/24 09:00 Empagliflozin 10 Mg Tablet PO DAILY TANNA Glucagon 1 mg 01/19/24 00:44 Glucagon For Inj 1 Mg Vial IM PRN PRN Hypoglycemia Protocol Glucose 15 gm 01/19/24 00:44 Glucose Oral Gel 15 Gm Of Glucse In 37.5 Gm Tube PO PRN PRN Hypoglycemia Protocol Hydrocortisone Sodium Succinate 100 mg 01/17/24 22:00 01/19/24 05:35 Hydrocortisone Sodium Succinate 100 Mg/2 Ml Vial IV PUSH 100 mg Q8HR TANNA Administration Norepinephrine Bitartrate 8 mg in 250 mls @ 18.75 mls/hr 01/17/24 13:00 01/19/24 06:53 Levophed 8 Mg/D5w 250 Ml IV CONT 10 mcg/min .[id number] TANNA 18.75 mls/hr Administration Protocol 10 MCG/MIN Aztreonam 1 gm/ Sodium 50 mls @ 100 mls/hr 01/17/24 14:00 01/19/24 06:05 Chloride IVPB Infused Q8H TANNA Infusion Vasopressin 100 units/ 100 mls @ 0.6 mls/hr 01/17/24 15:15 01/19/24 06:08 Dextrose IV CONT Infused .Q72H TANNA Titration Protocol 0.01 UNITS/MIN Fentanyl Citrate 2,500 mcg in 250 mls @ 5 mls/hr 01/17/24 22:35 01/19/24 06:12 Fentanyl 2,500 Mcg/Ns 250 Ml IV CONT 50 mcg/hr .Q50H TANNA 5 mls/hr Titration Protocol 50 MCG/HR Midazolam HCl 100 mg in 100 mls @ 2 mls/hr 01/17/24 22:35 01/19/24 06:00 Versed 100 Mg/Ns 100 Ml IV CONT 2 mg/hr .Q50H TANNA 2 mls/hr Titration Protocol 2 MG/HR Dextrose 1,000 mls @ 100 mls/hr 01/19/24 00:44 Dextrose 5% 1,000 Ml IVPB PRN PRN Hypoglycemia Protocol Sodium Chloride 250 mls @ 30 mls/hr 01/19/24 07:53 Normal Saline Iv IV CONT 01/19/24 16:12 .Q8H20M STA Sodium Bicarbonate 150 meq/ 1,100 mls @ 100 mls/hr 01/19/24 10:00 Dextrose IV CONT .Q11H TANNA Multi-Ingred Cream/Lotion/Oil/Oint 1 applic 01/18/24 09:00 01/19/24 09:06 Mineral Oil/White Petrolatum Ointment EACH EYE 1 applic Q12HR TANNA Administration Nabumetone 750 mg 01/17/24 21:00 Nabumetone 750 Mg Tablet PO Q12HR TANNA Ondansetron HCl 4 mg 01/17/24 12:42 01/17/24 12:51 Ondansetron Inj 4 Mg/2 Ml Vial IV PUSH 4 mg Q4H PRN Administration Nausea Ondansetron HCl 4 mg 01/17/24 15:19 Ondansetron Hcl Odt 4 Mg Tablet PO Q6H PRN Nausea Oxycodone HCl 5 mg 01/17/24 15:19 Oxycodone Hcl (*Crx) 5 Mg Tab Ir PO Q6-8H PRN Pain (Scale Score 7-10) Pantoprazole Sodium 40 mg 01/18/24 09:00 01/18/24 07:51 Pantoprazole 40 Mg Tablet PO 40 mg DAILY TANNA Administration Pantoprazole Sodium 40 mg 01/19/24 09:00 01/19/24 09:06 Pantoprazole Sodium Iv 40 Mg Vial IV PUSH 40 mg Q12HR TANNA Administration Sodium Chloride 10 ml 01/17/24 22:00 01/19/24 05:36 Central Line Flush IV PUSH 10 ml Q8HR TANNA Administration Sodium Chloride 20 ml 01/17/24 16:51 Central Line Flush IV PUSH PRN PRN after blood draws Sumatriptan Succinate 50 mg 01/17/24 15:19 Sumatriptan Succinate 25 Mg Tablet PO Q8H PRN Headache Tamoxifen Citrate 20 mg 01/18/24 09:00 01/18/24 07:54 Tamoxifen Citrate (*Chemo) 10 Mg Tablet PO 20 mg DAILY TANNA Administration Vancomycin HCl 1 each 01/17/24 16:30 Vancomycin For Acute Kidney Injury IVPB PRN PRN Vancomycin Protocol Radiology Results: ITS Impressions Abdomen/Pelvis CT 01/17/24 10:23 IMPRESSION: 1. 11 mm stone at right ureteropelvic junction with mild right hydronephrosis. 2. 1 mm nonobstructing left kidney stone. 3. 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 Ureter Stent X-Ray 01/17/24 15:20 IMPRESSION: 1. Persistent stone at the right ureteropelvic junction with placement of a right internal ureteral stent in expected position. Is unclear the stone has been removed on the final image and would correlate with procedure note for further detail. Renal Ultrasound 01/17/24 19:03 IMPRESSION: 1. 7.2 cm left renal cyst. Otherwise normal kidneys with no hydronephrosis. Abdomen X-Ray 01/17/24 23:21 IMPRESSION: 1. Endotracheal tube and nasogastric tube in expected positions as detailed above. 2. Unchanged mild elevation of the right hemidiaphragm with streaky atelectasis versus less likely pneumonia at the bilateral lower lung zones. Chest X-Ray 01/19/24 06:04 IMPRESSION: 1. Stable airspace opacities in right mid and lower lung zones and left lower lung zone, consistent with atelectasis or less likely pneumonia. Labs Labs: Laboratory Results - last 24 hr 01/18/24 01/18/24 01/18/24 09:30 11:47 13:01 WBC RBC Hgb Hct MCV MCH MCHC RDW Plt Count MPV Immature Gran % (Auto) Neut % (Auto) Lymph % (Auto) [place] % (Auto) Eos % (Auto) Baso % (Auto) Lymph # (Auto) [place] # (Auto) Eos # (Auto) Baso # (Auto) Abs Immat Gran (auto) Absolute Neuts (auto) Absolute Nucleated RBC Neutrophils % (Manual) Band Neutrophils % Lymphocytes % (Manual) Monocytes % (Manual) Metamyelocytes % Nucleated RBC % Abs Neuts (Manual) Abs Lymphs (Manual) Abs Monocytes (Manual) Platelet Estimate % Immature Plt Fraction Schistocytes PT INR APTT Fibrinogen D-Dimer Puncture Site ABG pH ABG pCO2 ABG pO2 ABG PO2/FiO2 Ratio ABG HCO3 ABG O2 Saturation ABG O2 Content ABG Base Excess A-a Gradient Oxyhemoglobin Carboxyhemoglobin Methemoglobin Reduced Hemoglobin Total Hemoglobin O2 Delivery Device O2 Liters/Min Minute Volume Vent Rate Vent Mode FiO2 Tidal Volume PEEP Peak Inspir Pressure Pressure Support Sodium Potassium Chloride Carbon Dioxide Anion Gap BUN Creatinine Estim Creat Clear Calc Estimated GFR Glucose POC Capillary Glucose 149 H Lactic Acid 13.8 H* 14.3 H* Calcium Phosphorus Magnesium Total Bilirubin AST ALT Alkaline Phosphatase Total Protein Albumin Random Vancomycin 01/18/24 01/18/24 01/19/24 14:33 15:50 00:37 WBC RBC Hgb Hct MCV MCH MCHC RDW Plt Count MPV Immature Gran % (Auto) Neut % (Auto) Lymph % (Auto) [place] % (Auto) Eos % (Auto) Baso % (Auto) Lymph # (Auto) [place] # (Auto) Eos # (Auto) Baso # (Auto) Abs Immat Gran (auto) Absolute Neuts (auto) Absolute Nucleated RBC Neutrophils % (Manual) Band Neutrophils % Lymphocytes % (Manual) Monocytes % (Manual) Metamyelocytes % Nucleated RBC % Abs Neuts (Manual) Abs Lymphs (Manual) Abs Monocytes (Manual) Platelet Estimate % Immature Plt Fraction Schistocytes PT INR APTT Fibrinogen D-Dimer Puncture Site Artline ABG pH 7.217 L* ABG pCO2 34.2 L ABG pO2 199.8 H ABG PO2/FiO2 Ratio 3.33 ABG HCO3 13.6 L ABG O2 Saturation 99.1 ABG O2 Content 15.2 L ABG Base Excess -13.1 A-a Gradient 190.4 Oxyhemoglobin 99.0 Carboxyhemoglobin Methemoglobin Reduced Hemoglobin Total Hemoglobin 10.6 L O2 Delivery Device Ventilator O2 Liters/Min Not Reportable Minute Volume Not Reportable Vent Rate 28 Vent Mode Cmv FiO2 60 Tidal Volume 400 PEEP 8 Peak Inspir Pressure Not Reportable Pressure Support Not Reportable Sodium Potassium Chloride Carbon Dioxide Anion Gap BUN Creatinine Estim Creat Clear Calc Estimated GFR Glucose POC Capillary Glucose < 20 L* Lactic Acid Calcium Phosphorus Magnesium Total Bilirubin AST ALT Alkaline Phosphatase Total Protein Albumin Random Vancomycin 14.4 01/19/24 01/19/24 01/19/24 01:03 01:10 01:22 WBC RBC Hgb Hct MCV MCH MCHC RDW Plt Count MPV Immature Gran % (Auto) Neut % (Auto) Lymph % (Auto) [place] % (Auto) Eos % (Auto) Baso % (Auto) Lymph # (Auto) [place] # (Auto) Eos # (Auto) Baso # (Auto) Abs Immat Gran (auto) Absolute Neuts (auto) Absolute Nucleated RBC Neutrophils % (Manual) Band Neutrophils % Lymphocytes % (Manual) Monocytes % (Manual) Metamyelocytes % Nucleated RBC % Abs Neuts (Manual) Abs Lymphs (Manual) Abs Monocytes (Manual) Platelet Estimate % Immature Plt Fraction Schistocytes PT INR APTT Fibrinogen D-Dimer Puncture Site ABG pH ABG pCO2 ABG pO2 ABG PO2/FiO2 Ratio ABG HCO3 ABG O2 Saturation ABG O2 Content ABG Base Excess A-a Gradient Oxyhemoglobin Carboxyhemoglobin Methemoglobin Reduced Hemoglobin Total Hemoglobin O2 Delivery Device O2 Liters/Min Minute Volume Vent Rate Vent Mode FiO2 Tidal Volume PEEP Peak Inspir Pressure Pressure Support Sodium Potassium Chloride Carbon Dioxide Anion Gap BUN Creatinine Estim Creat Clear Calc Estimated GFR Glucose 180 H POC Capillary Glucose < 20 L* 35 L* Lactic Acid Calcium Phosphorus Magnesium Total Bilirubin AST ALT Alkaline Phosphatase Total Protein Albumin Random Vancomycin 01/19/24 01/19/24 01/19/24 01:30 02:37 05:22 WBC RBC Hgb Hct MCV MCH MCHC RDW Plt Count MPV Immature Gran % (Auto) Neut % (Auto) Lymph % (Auto) [place] % (Auto) Eos % (Auto) Baso % (Auto) Lymph # (Auto) [place] # (Auto) Eos # (Auto) Baso # (Auto) Abs Immat Gran (auto) Absolute Neuts (auto) Absolute Nucleated RBC Neutrophils % (Manual) Band Neutrophils % Lymphocytes % (Manual) Monocytes % (Manual) Metamyelocytes % Nucleated RBC % Abs Neuts (Manual) Abs Lymphs (Manual) Abs Monocytes (Manual) Platelet Estimate % Immature Plt Fraction Schistocytes PT INR APTT Fibrinogen D-Dimer Puncture Site Artline ABG pH 7.382 ABG pCO2 34.8 L ABG pO2 125.9 H ABG PO2/FiO2 Ratio 2.52 ABG HCO3 20.2 L ABG O2 Saturation 98.5 ABG O2 Content 18.6 ABG Base Excess -4.1 A-a Gradient 191.5 Oxyhemoglobin 97.9 Carboxyhemoglobin 0.4 Methemoglobin 0.3 Reduced Hemoglobin 1.4 Total Hemoglobin 13.4 O2 Delivery Device Ventilator O2 Liters/Min Not Reportable Minute Volume Not Reportable Vent Rate 28 Vent Mode Cmv FiO2 50 Tidal Volume 400 PEEP 8 Peak Inspir Pressure Not Reportable Pressure Support Not Reportable Sodium Potassium Chloride Carbon Dioxide Anion Gap BUN Creatinine Estim Creat Clear Calc Estimated GFR Glucose POC Capillary Glucose 243 H 206 H Lactic Acid Calcium Phosphorus Magnesium Total Bilirubin AST ALT Alkaline Phosphatase Total Protein Albumin Random Vancomycin 01/19/24 01/19/24 01/19/24 05:30 05:30 08:56 WBC 28.8 H RBC 2.54 L Hgb 8.4 L Hct 25.0 L MCV 98.4 MCH 33.1 MCHC 33.6 RDW 14.4 Plt Count 28 L D MPV 11.7 H Immature Gran % (Auto) Not Reportable Neut % (Auto) Not Reportable Lymph % (Auto) Not Reportable [place] % (Auto) Not Reportable Eos % (Auto) Not Reportable Baso % (Auto) Not Reportable Lymph # (Auto) Not Reportable [place] # (Auto) Not Reportable Eos # (Auto) Not Reportable Baso # (Auto) Not Reportable Abs Immat Gran (auto) Not Reportable Absolute Neuts (auto) Not Reportable Absolute Nucleated RBC Not Reportable Neutrophils % (Manual) 85 H Band Neutrophils % 7 H Lymphocytes % (Manual) 5 L Monocytes % (Manual) 2 L Metamyelocytes % 1 Nucleated RBC % Not Reportable Abs Neuts (Manual) 26.49 H Abs Lymphs (Manual) 1.44 Abs Monocytes (Manual) 0.57 Platelet Estimate Decreased % Immature Plt Fraction 16.6 H Schistocytes None seen PT 27.8 H D INR 2.6 APTT 37.9 H Cancelled Fibrinogen 335 D-Dimer 9.68 H Puncture Site ABG pH ABG pCO2 ABG pO2 ABG PO2/FiO2 Ratio ABG HCO3 ABG O2 Saturation ABG O2 Content ABG Base Excess A-a Gradient Oxyhemoglobin Carboxyhemoglobin Methemoglobin Reduced Hemoglobin Total Hemoglobin O2 Delivery Device O2 Liters/Min Minute Volume Vent Rate Vent Mode FiO2 Tidal Volume PEEP Peak Inspir Pressure Pressure Support Sodium 127 L Potassium 4.5 Chloride 83 L Carbon Dioxide 21 L Anion Gap 23 H BUN 39 H Creatinine 4.10 H Estim Creat Clear Calc 12 Estimated GFR 10 L Glucose 141 H POC Capillary Glucose Lactic Acid 9.3 H* 7.6 H* Calcium 6.5 L Phosphorus 5.0 H Magnesium 1.4 L Total Bilirubin 2.5 H AST 1018 H ALT 447 H Alkaline Phosphatase 114 Total Protein 6.0 L Albumin 3.7 Random Vancomycin 01/19/24 09:05 WBC RBC Hgb Hct MCV MCH MCHC RDW Plt Count MPV Immature Gran % (Auto) Neut % (Auto) Lymph % (Auto) [place] % (Auto) Eos % (Auto) Baso % (Auto) Lymph # (Auto) [place] # (Auto) Eos # (Auto) Baso # (Auto) Abs Immat Gran (auto) Absolute Neuts (auto) Absolute Nucleated RBC Neutrophils % (Manual) Band Neutrophils % Lymphocytes % (Manual) Monocytes % (Manual) Metamyelocytes % Nucleated RBC % Abs Neuts (Manual) Abs Lymphs (Manual) Abs Monocytes (Manual) Platelet Estimate % Immature Plt Fraction Schistocytes PT INR APTT Fibrinogen D-Dimer Puncture Site ABG pH ABG pCO2 ABG pO2 ABG PO2/FiO2 Ratio ABG HCO3 ABG O2 Saturation ABG O2 Content ABG Base Excess A-a Gradient Oxyhemoglobin Carboxyhemoglobin Methemoglobin Reduced Hemoglobin Total Hemoglobin O2 Delivery Device O2 Liters/Min Minute Volume Vent Rate Vent Mode FiO2 Tidal Volume PEEP Peak Inspir Pressure Pressure Support Sodium Potassium Chloride Carbon Dioxide Anion Gap BUN Creatinine Estim Creat Clear Calc Estimated GFR Glucose POC Capillary Glucose 65 Lactic Acid Calcium Phosphorus Magnesium Total Bilirubin AST ALT Alkaline Phosphatase Total Protein Albumin Random Vancomycin Quality VTE Prophylaxis VTE prophylaxis: pharmacologic ordered
[2024-01-19] MEDS: SODIUM BICARBONATE 8.4% 150 MEQ in DEXTROSE 5% 1,000 ML 950 ML 100 MEQ IV CONT ×2 (10:22→21:29)
[2024-01-19] MEDS: SODIUM CHLORIDE 0.9% IV 250 ML 30 ML IV CONT (10:25)
[2024-01-19] MEDS: PHYTONADIONE ADULT INJ 10 MG in DEXTROSE 5% IN WATER 50 ML 100 MG IVPB (11:18)
[2024-01-19 11:27] LABS: Alveolar/Arterial O2 Gradient 105.1 mmHg; Base Excess ABG 0.4 mEq/l (+/-2.0); Fractional Inspired Oxygen 30 %; HCO3 ABG 22.1 mEq/l (22.0-26.0); Oxygen Content ABG 12.3 %vol (16.0-22.0); Oxygen Saturation ABG 97.2 % (95.0-100.0); Oxyhemoglobin 96.2 % THb (90.0-100.0); PCO2 ABG 25.4 mmHg (35.0-45.0); PO2 FiO2 Ratio Arterial Blood 2.63 %
[2024-01-19 11:28] LABS: Arterial Blood Gas PEEP 8 cmH2O; Arterial Blood Gas Tidal Volume 400 ml; Arterial Blood Gas Vent Mode CMV; Arterial Blood Gas Ventilator rate 28 /MIN; Device VENTILATOR; Site Drawn ARTLINE; pH ABG 7.557 (7.350-7.450)
--- NOTE | 2024-01-19 11:32 | PCFNICU ---
ICU Rounding Note: Pt current nutrition is NPO. Last recorded weight is 127.8 kg, up from 108.4 kg on admit. Nursing is aware of > 10% weight change. Bowel Motility: +BM reported 01/16 Labs Reviewed: GFR 10, BUN 39, Cr 4.1,Glu 141, Mg 1.4,Na 127 Meds Noted:Versed, Fentanyl, Levophed,. Skin:WNL Additional Notes: Patient remains on a mechanical vent. Plans for Dialysis today. Discussions regarding nutrition in rounds, no nutrition planned for today. Tube feeding recommendations: Nepro at 20 ml/hr advance by 10 ml q 4 hours to goal rate of 40 ml/hr. Following daily in ICU rounds. Will monitor weight labs, skin, oral intake, meds every Tuesday and Tuesday.
[2024-01-19 12:22] LABS: Glucose Point of Care 144 mg/dl (65-105)
--- NOTE | 2024-01-19 12:37 | P.PN_ITS ---
Progress Note: A&P Assessment and Plan (1) Ischemic bowel disease: Code(s): K55.9 - Vascular disorder of intestine, unspecified Status: Acute Assessment and Plan: Patient probably does have some degree of ischemic bowel. However with the decrease in need for any pressors at this point from 4 pressors down to 1 pressor and improvement in her white blood cell count and lactic acid levels I think that there is no obvious necrotic small bowel and that there may be hold for recovery of the bowel. CT scan showed no obvious evidence of perforation or free air succus or fecal content within the abdomen from any perforations. Perfusion of the bowel however was not able to be gauged due to not using any IV contrast. The patient does have acute kidney injury and acute renal failure and was started on dialysis this afternoon. Her liver enzymes have increased and counseled are critically low. she is getting blood products now to address these issues. Agree with continued aggressive supportive management. no role for management at this time as she continues to improve without surgical intervention . Will follow. Subjective Date/time seen: 01/19/24 12:37 Interval history: Patient is still critically ill in intensive care unit on ventilator sedated. Her overall condition however has improved from yesterday. Lactic acid levels have decreased. She has been weaned off of 3 of the 4 pressors and only remains on Levophed now. Liver enzymes have increased an INR has prolonged but white blood cell count is decreasing. Lactic acid level is decreasing as well. CT scan chest abdomen pelvis without contrast earlier today showed nondilated bowel without free air or evidence of perforation or ascites in the abdomen. Atelectasis of base the lungs was noted and right kidney stone and stent in place. Patient remains on IV antibiotics. Exam GI: Other: Abdomen is obese and soft. Unable to gauge any tenderness to the patient being sedated on the ventilator. Objective Data Vital Signs Vital Signs: Vital Signs - 24 hr 01/18/24 12:46 01/18/24 12:45 01/18/24 13:00 Temperature Pulse Rate 103 H 105 H 104 H Respiratory Rate Blood Pressure 129/75 129/75 128/74 Pulse Oximetry Oxygen Delivery Fraction of Inspired Oxygen 01/18/24 13:00 01/18/24 13:35 01/18/24 14:00 Temperature 37.7 C H Pulse Rate 94 95 102 H Respiratory Rate 28 H Blood Pressure 128/72 136/78 Pulse Oximetry 99 99 Oxygen Delivery Mechanical Ventilation Fraction of Inspired Oxygen 70 01/18/24 14:10 01/18/24 14:10 01/18/24 14:00 Temperature 37.8 C H Pulse Rate 105 H 115 H 94 Respiratory Rate 28 H Blood Pressure 134/77 128/73 130/73 Pulse Oximetry 99 Oxygen Delivery Fraction of Inspired Oxygen 01/18/24 14:25 01/18/24 14:13 01/18/24 14:28 Temperature Pulse Rate 94 96 96 Respiratory Rate Blood Pressure 120/69 118/66 118/66 Pulse Oximetry Oxygen Delivery Fraction of Inspired Oxygen 01/18/24 14:00 01/18/24 14:00 01/18/24 14:00 Temperature Pulse Rate 96 94 96 Respiratory Rate 28 H 28 H Blood Pressure 121/69 Pulse Oximetry Oxygen Delivery Fraction of Inspired Oxygen 01/18/24 14:00 01/18/24 15:00 01/18/24 16:00 Temperature 37.6 C Pulse Rate 94 95 95 Respiratory Rate 28 H Blood Pressure 118/67 113/63 Pulse Oximetry 99 Oxygen Delivery Fraction of Inspired Oxygen 01/18/24 16:00 01/18/24 16:00 01/18/24 16:00 Temperature Pulse Rate 95 95 91 Respiratory Rate Blood Pressure 113/63 113/62 111/62 Pulse Oximetry Oxygen Delivery Fraction of Inspired Oxygen 01/18/24 16:00 01/18/24 16:00 01/18/24 16:00 Temperature Pulse Rate 92 91 91 Respiratory Rate 28 H 28 H Blood Pressure Pulse Oximetry Oxygen Delivery Fraction of Inspired Oxygen 01/18/24 16:00 01/18/24 16:00 01/18/24 17:00 Temperature 38.1 C H Pulse Rate 93 92 Respiratory Rate 28 H 28 H Blood Pressure 117/64 Pulse Oximetry 100 99 Oxygen Delivery Mechanical Ventilation Fraction of Inspired Oxygen 60 60 01/18/24 17:14 01/18/24 16:00 01/18/24 16:34 Temperature 37.9 C H Pulse Rate 91 90 96 Respiratory Rate 28 H Blood Pressure 116/64 113/65 Pulse Oximetry 98 97 Oxygen Delivery Mechanical Ventilation Fraction of Inspired Oxygen 60 01/18/24 18:00 01/18/24 18:18 01/18/24 18:19 Temperature 37.9 C H Pulse Rate 90 96 96 Respiratory Rate 28 H Blood Pressure 113/65 109/57 L 109/57 L Pulse Oximetry 98 Oxygen Delivery Fraction of Inspired Oxygen 01/18/24 18:00 01/18/24 18:00 01/18/24 18:00 Temperature Pulse Rate 101 H 94 95 Respiratory Rate 32 H Blood Pressure 110/58 L Pulse Oximetry Oxygen Delivery Fraction of Inspired Oxygen 01/18/24 18:00 01/18/24 18:00 01/18/24 18:00 Temperature Pulse Rate 95 95 100 Respiratory Rate 31 H Blood Pressure 111/58 L 111/58 L Pulse Oximetry Oxygen Delivery Fraction of Inspired Oxygen 01/18/24 18:33 01/18/24 19:14 01/18/24 19:15 Temperature Pulse Rate 95 91 91 Respiratory Rate Blood Pressure 108/59 L 116/60 116/60 Pulse Oximetry Oxygen Delivery Fraction of Inspired Oxygen 01/18/24 19:25 01/18/24 19:40 01/18/24 19:55 Temperature Pulse Rate 92 93 92 Respiratory Rate Blood Pressure 135/69 132/68 132/68 Pulse Oximetry Oxygen Delivery Fraction of Inspired Oxygen 01/18/24 20:00 01/18/24 20:00 01/18/24 20:00 Temperature Pulse Rate 92 92 92 Respiratory Rate Blood Pressure 132/78 132/78 132/78 Pulse Oximetry Oxygen Delivery Fraction of Inspired Oxygen 01/18/24 20:00 01/18/24 20:00 01/18/24 20:00 Temperature Pulse Rate 92 92 92 Respiratory Rate 28 H 28 H Blood Pressure 132/78 Pulse Oximetry Oxygen Delivery Fraction of Inspired Oxygen 01/18/24 20:15 01/18/24 19:00 01/18/24 20:00 Temperature 38.1 C H 38.1 C H Pulse Rate 91 91 92 Respiratory Rate 28 H 28 H Blood Pressure 130/66 122/63 132/78 Pulse Oximetry 96 91 Oxygen Delivery Fraction of Inspired Oxygen 01/18/24 20:00 01/18/24 20:00 01/18/24 20:25 Temperature Pulse Rate 92 90 Respiratory Rate 28 H Blood Pressure Pulse Oximetry 97 98 Oxygen Delivery Mechanical Ventilation Mechanical Ventilation Fraction of Inspired Oxygen 60 60 60 01/18/24 20:45 01/18/24 21:00 01/18/24 21:05 Temperature Pulse Rate 91 90 91 Respiratory Rate 28 H Blood Pressure 128/65 135/70 Pulse Oximetry Oxygen Delivery Fraction of Inspired Oxygen 01/18/24 20:00 01/18/24 21:00 01/18/24 21:29 Temperature 38.1 C H Pulse Rate 91 91 92 Respiratory Rate 28 H Blood Pressure 133/67 138/70 Pulse Oximetry 97 Oxygen Delivery Fraction of Inspired Oxygen 01/18/24 21:48 01/18/24 22:00 01/18/24 22:00 Temperature Pulse Rate 91 92 91 Respiratory Rate Blood Pressure 137/70 136/69 136/69 Pulse Oximetry Oxygen Delivery Fraction of Inspired Oxygen 01/18/24 22:00 01/18/24 22:00 01/18/24 22:00 Temperature Pulse Rate 91 91 91 Respiratory Rate 28 H Blood Pressure 136/69 136/69 Pulse Oximetry Oxygen Delivery Fraction of Inspired Oxygen 01/18/24 22:00 01/18/24 22:05 01/18/24 22:00 Temperature Pulse Rate 91 90 91 Respiratory Rate 28 H Blood Pressure 131/68 Pulse Oximetry Oxygen Delivery Fraction of Inspired Oxygen 01/18/24 22:00 01/18/24 22:30 01/18/24 22:57 Temperature 38.1 C H Pulse Rate 91 90 92 Respiratory Rate 28 H Blood Pressure 135/69 135/70 135/71 Pulse Oximetry 97 Oxygen Delivery Fraction of Inspired Oxygen 01/18/24 23:19 01/18/24 23:15 01/18/24 23:00 Temperature 38.2 C H Pulse Rate 90 91 92 Respiratory Rate 28 H Blood Pressure 140/73 135/71 Pulse Oximetry 96 96 Oxygen Delivery Mechanical Ventilation Fraction of Inspired Oxygen 60 01/18/24 23:42 01/18/24 23:57 01/19/24 01:10 Temperature Pulse Rate 94 91 84 Respiratory Rate Blood Pressure 128/29 L 134/71 134/66 Pulse Oximetry Oxygen Delivery Fraction of Inspired Oxygen 01/19/24 01:30 01/19/24 00:00 01/19/24 00:00 Temperature Pulse Rate 83 88 88 Respiratory Rate Blood Pressure 139/69 134/70 134/70 Pulse Oximetry Oxygen Delivery Fraction of Inspired Oxygen 01/19/24 00:00 01/19/24 00:00 01/19/24 00:00 Temperature Pulse Rate 88 88 88 Respiratory Rate 28 H Blood Pressure 134/70 134/70 Pulse Oximetry Oxygen Delivery Fraction of Inspired Oxygen 01/19/24 00:00 01/19/24 00:19 01/19/24 00:30 Temperature Pulse Rate 88 90 89 Respiratory Rate 28 H Blood Pressure 136/71 137/72 Pulse Oximetry Oxygen Delivery Fraction of Inspired Oxygen 01/19/24 00:35 01/19/24 00:00 01/19/24 00:00 Temperature Pulse Rate 89 91 Respiratory Rate Blood Pressure 136/71 Pulse Oximetry Oxygen Delivery Fraction of Inspired Oxygen 60 01/19/24 00:00 01/19/24 00:00 01/19/24 01:00 Temperature 38.3 C H 38.2 C H Pulse Rate 88 88 83 Respiratory Rate 28 H 28 H 28 H Blood Pressure 134/70 140/70 Pulse Oximetry 95 95 94 Oxygen Delivery Mechanical Ventilation Fraction of Inspired Oxygen 60 01/19/24 01:55 01/19/24 01:45 01/19/24 01:47 Temperature Pulse Rate 93 82 81 Respiratory Rate Blood Pressure 140/73 134/67 Pulse Oximetry 94 Oxygen Delivery Mechanical Ventilation Fraction of Inspired Oxygen 60 01/19/24 02:00 01/19/24 02:00 01/19/24 02:00 Temperature Pulse Rate 93 93 93 Respiratory Rate Blood Pressure 139/73 139/73 137/73 Pulse Oximetry Oxygen Delivery Fraction of Inspired Oxygen 01/19/24 02:00 01/19/24 02:00 01/19/24 02:07 Temperature Pulse Rate 93 93 93 Respiratory Rate 28 H 28 H Blood Pressure 139/73 Pulse Oximetry Oxygen Delivery Fraction of Inspired Oxygen 01/19/24 02:00 01/19/24 02:00 01/19/24 02:15 Temperature 38.1 C H Pulse Rate 93 93 93 Respiratory Rate 28 H Blood Pressure 139/73 137/73 Pulse Oximetry 94 Oxygen Delivery Fraction of Inspired Oxygen 01/19/24 02:30 01/19/24 03:20 01/19/24 03:00 Temperature 38.0 C H Pulse Rate 79 78 80 Respiratory Rate 28 H Blood Pressure 131/69 136/72 133/71 Pulse Oximetry 94 Oxygen Delivery Fraction of Inspired Oxygen 01/19/24 03:30 01/19/24 03:40 01/19/24 03:50 Temperature Pulse Rate 79 78 92 Respiratory Rate Blood Pressure 133/71 127/69 150/87 H Pulse Oximetry Oxygen Delivery Fraction of Inspired Oxygen 01/19/24 04:10 01/19/24 04:20 01/19/24 04:00 Temperature Pulse Rate 79 79 79 Respiratory Rate Blood Pressure 139/80 124/65 133/75 Pulse Oximetry Oxygen Delivery Fraction of Inspired Oxygen 01/19/24 04:00 01/19/24 04:00 01/19/24 04:00 Temperature Pulse Rate 79 79 79 Respiratory Rate 28 H 28 H Blood Pressure 133/75 Pulse Oximetry Oxygen Delivery Fraction of Inspired Oxygen 01/19/24 04:00 01/19/24 04:00 01/19/24 05:00 Temperature 38.0 C H 37.8 C H Pulse Rate 79 87 Respiratory Rate 28 H 28 H Blood Pressure 133/75 106/60 Pulse Oximetry 96 95 Oxygen Delivery Fraction of Inspired Oxygen 50 01/19/24 04:00 01/19/24 05:18 01/19/24 05:33 Temperature Pulse Rate 79 86 74 Respiratory Rate 28 H Blood Pressure 123/68 120/64 Pulse Oximetry 97 Oxygen Delivery Mechanical Ventilation Fraction of Inspired Oxygen 50 01/19/24 05:48 01/19/24 06:00 01/19/24 06:00 Temperature Pulse Rate 76 77 75 Respiratory Rate Blood Pressure 126/67 125/66 125/66 Pulse Oximetry Oxygen Delivery Fraction of Inspired Oxygen 01/19/24 06:00 01/19/24 06:00 01/19/24 06:00 Temperature Pulse Rate 76 77 77 Respiratory Rate 28 H 28 H Blood Pressure 125/65 Pulse Oximetry Oxygen Delivery Fraction of Inspired Oxygen 01/19/24 06:08 01/19/24 06:12 01/19/24 06:13 Temperature Pulse Rate 76 75 75 Respiratory Rate 28 H Blood Pressure 122/63 131/68 Pulse Oximetry Oxygen Delivery Fraction of Inspired Oxygen 01/19/24 04:00 01/19/24 06:00 01/19/24 06:00 Temperature 37.8 C H Pulse Rate 81 76 Respiratory Rate Blood Pressure Pulse Oximetry Oxygen Delivery Fraction of Inspired Oxygen 01/19/24 06:15 01/19/24 06:30 01/19/24 06:40 Temperature Pulse Rate 75 75 86 Respiratory Rate Blood Pressure 126/65 126/67 Pulse Oximetry 96 Oxygen Delivery Mechanical Ventilation Fraction of Inspired Oxygen 50 01/19/24 06:53 01/19/24 06:53 01/19/24 07:59 Temperature Pulse Rate 88 87 87 Respiratory Rate Blood Pressure 118/62 118/63 Pulse Oximetry 96 Oxygen Delivery Mechanical Ventilation Fraction of Inspired Oxygen 50 01/19/24 08:23 01/19/24 10:21 01/19/24 09:56 Temperature Pulse Rate 85 76 Respiratory Rate Blood Pressure 102/52 L Pulse Oximetry 94 96 Oxygen Delivery Mechanical Ventilation Mechanical Ventilation Fraction of Inspired Oxygen 40 40 01/19/24 10:30 01/19/24 07:00 01/19/24 08:00 Temperature 37.6 C 37.4 C Pulse Rate 76 75 Respiratory Rate 28 H 28 H Blood Pressure 109/58 L 115/61 Pulse Oximetry 92 92 Oxygen Delivery Fraction of Inspired Oxygen 40 01/19/24 08:00 01/19/24 08:00 01/19/24 09:00 Temperature 37.4 C 37.5 C Pulse Rate 88 87 75 Respiratory Rate 28 H 28 H Blood Pressure 112/60 120/65 Pulse Oximetry 96 Oxygen Delivery Fraction of Inspired Oxygen 01/19/24 08:00 01/19/24 10:48 01/19/24 10:48 Temperature 37.5 C Pulse Rate 75 74 Respiratory Rate 28 H Blood Pressure 121/65 Pulse Oximetry 98 94 93 Oxygen Delivery Mechanical Ventilation Mechanical Ventilation Fraction of Inspired Oxygen 40 30 01/19/24 10:00 01/19/24 10:00 01/19/24 11:41 Temperature 37.5 C 37.4 C Pulse Rate 76 74 85 Respiratory Rate 28 H 22 H Blood Pressure 122/66 141/78 H Pulse Oximetry 94 95 Oxygen Delivery Fraction of Inspired Oxygen 01/19/24 11:45 01/19/24 11:33 01/19/24 11:50 Temperature Pulse Rate 85 73 84 Respiratory Rate Blood Pressure 140/77 141/77 H Pulse Oximetry 95 Oxygen Delivery Mechanical Ventilation Fraction of Inspired Oxygen 30 01/19/24 11:55 01/19/24 11:56 01/19/24 12:00 Temperature 37.4 C Pulse Rate 70 72 71 Respiratory Rate 22 H Blood Pressure 136/72 135/73 126/68 Pulse Oximetry 95 Oxygen Delivery Fraction of Inspired Oxygen Intake/Output Intake/Output: Intake & Output 01/16/24 01/17/24 01/18/24 01/19/24 23:59 23:59 23:59 23:59 Intake Total 4514.6 6609.8 1941.5 Output Total 140 200 85 Balance 4374.6 6409.8 1856.5 Meds/Results Medications: Active Medications Generic Name Dose Route Start Last Admin Trade Name Alexq PRN Reason Stop Dose Admin Atorvastatin Calcium 10 mg 01/18/24 09:00 Atorvastatin 10 Mg Tablet PO DAILY TANNA Dextrose 12.5 gm 01/19/24 00:44 01/19/24 01:08 Dextrose 50% 25 Gm/50 Ml Syringe IV PUSH 12.5 gm PRN PRN Administration Hypoglycemia Protocol Duloxetine HCl 120 mg 01/18/24 09:00 01/18/24 07:54 Duloxetine Hcl 60 Mg Capsule. PO 120 mg DAILY TANNA Administration Empagliflozin 10 mg 01/18/24 09:00 Empagliflozin 10 Mg Tablet PO DAILY TANNA Epoetin Brent-epbx 10,000 units 01/19/24 20:00 Epoetin Brent-Epbx 10,000 Units/Ml Vial IV PUSH 01/19/24 20:01 ONCE ONE Glucagon 1 mg 01/19/24 00:44 Glucagon For Inj 1 Mg Vial IM PRN PRN Hypoglycemia Protocol Glucose 15 gm 01/19/24 00:44 Glucose Oral Gel 15 Gm Of Glucse In 37.5 Gm Tube PO PRN PRN Hypoglycemia Protocol Hydrocortisone Sodium Succinate 100 mg 01/17/24 22:00 01/19/24 05:35 Hydrocortisone Sodium Succinate 100 Mg/2 Ml Vial IV PUSH 100 mg Q8HR TANNA Administration Norepinephrine Bitartrate 8 mg in 250 mls @ 15 mls/hr 01/17/24 13:00 01/19/24 12:00 Levophed 8 Mg/D5w 250 Ml IV CONT 8 mcg/min .[id number] TANNA 15 mls/hr Titration Protocol 8 MCG/MIN Vasopressin 100 units/ 100 mls @ 0.6 mls/hr 01/17/24 15:15 01/19/24 06:08 Dextrose IV CONT Infused .Q72H TANNA Titration Protocol 0.01 UNITS/MIN Fentanyl Citrate 2,500 mcg in 250 mls @ 5 mls/hr 01/17/24 22:35 01/19/24 06:12 Fentanyl 2,500 Mcg/Ns 250 Ml IV CONT 50 mcg/hr .Q50H TANNA 5 mls/hr Titration Protocol 50 MCG/HR Midazolam HCl 100 mg in 100 mls @ 2 mls/hr 01/17/24 22:35 01/19/24 06:00 Versed 100 Mg/Ns 100 Ml IV CONT 2 mg/hr .Q50H TANNA 2 mls/hr Titration Protocol 2 MG/HR Dextrose 1,000 mls @ 100 mls/hr 01/19/24 00:44 Dextrose 5% 1,000 Ml IVPB PRN PRN Hypoglycemia Protocol Sodium Chloride 250 mls @ 30 mls/hr 01/19/24 07:53 01/19/24 10:25 Normal Saline Iv IV CONT 01/19/24 16:12 30 mls/hr .Q8H20M STA Administration Sodium Bicarbonate 150 meq/ 1,100 mls @ 100 mls/hr 01/19/24 10:00 01/19/24 10:22 Dextrose IV CONT 100 mls/hr .Q11H TANNA Administration Aztreonam 1 gm/ Sodium 50 mls @ 100 mls/hr 01/19/24 18:00 Chloride IVPB Q12H TANNA Albumin Human 50 mls @ 999 mls/hr 01/19/24 12:02 Albutein IVPB 02/18/24 12:01 Q10M PRN HYPOTENSION Sodium Chloride 1,000 mls @ 999 mls/hr 01/19/24 12:02 Normal Saline Iv IV CONT 01/19/24 13:02 .Q1H1M ONE Multi-Ingred Cream/Lotion/Oil/Oint 1 applic 01/18/24 09:00 01/19/24 09:06 Mineral Oil/White Petrolatum Ointment EACH EYE 1 applic Q12HR TANNA Administration Nabumetone 750 mg 01/17/24 21:00 Nabumetone 750 Mg Tablet PO Q12HR TANNA Ondansetron HCl 4 mg 01/17/24 12:42 01/17/24 12:51 Ondansetron Inj 4 Mg/2 Ml Vial IV PUSH 4 mg Q4H PRN Administration Nausea Ondansetron HCl 4 mg 01/17/24 15:19 Ondansetron Hcl Odt 4 Mg Tablet PO Q6H PRN Nausea Oxycodone HCl 5 mg 01/17/24 15:19 Oxycodone Hcl (*Crx) 5 Mg Tab Ir PO Q6-8H PRN Pain (Scale Score 7-10) Pantoprazole Sodium 40 mg 01/18/24 09:00 01/18/24 07:51 Pantoprazole 40 Mg Tablet PO 40 mg DAILY TANNA Administration Pantoprazole Sodium 40 mg 01/19/24 09:00 01/19/24 09:06 Pantoprazole Sodium Iv 40 Mg Vial IV PUSH 40 mg Q12HR TANNA Administration Sodium Chloride 10 ml 01/17/24 22:00 01/19/24 05:36 Central Line Flush IV PUSH 10 ml Q8HR TANNA Administration Sodium Chloride 20 ml 01/17/24 16:51 Central Line Flush IV PUSH PRN PRN after blood draws Sumatriptan Succinate 50 mg 01/17/24 15:19 Sumatriptan Succinate 25 Mg Tablet PO Q8H PRN Headache Tamoxifen Citrate 20 mg 01/18/24 09:00 01/18/24 07:54 Tamoxifen Citrate (*Chemo) 10 Mg Tablet PO 20 mg DAILY TANNA Administration Vancomycin HCl 1 each 01/17/24 16:30 Vancomycin For Acute Kidney Injury IVPB PRN PRN Vancomycin Protocol Radiology Results: ITS Impressions Abdomen/Pelvis CT 01/17/24 10:23 IMPRESSION: 1. 11 mm stone at right ureteropelvic junction with mild right hydronephrosis. 2. 1 mm nonobstructing left kidney stone. 3. 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 Ureter Stent X-Ray 01/17/24 15:20 IMPRESSION: 1. Persistent stone at the right ureteropelvic junction with placement of a right internal ureteral stent in expected position. Is unclear the stone has been removed on the final image and would correlate with procedure note for further detail. Renal Ultrasound 01/17/24 19:03 IMPRESSION: 1. 7.2 cm left renal cyst. Otherwise normal kidneys with no hydronephrosis. Abdomen X-Ray 01/17/24 23:21 IMPRESSION: 1. Endotracheal tube and nasogastric tube in expected positions as detailed above. 2. Unchanged mild elevation of the right hemidiaphragm with streaky atelectasis versus less likely pneumonia at the bilateral lower lung zones. Chest X-Ray 01/19/24 06:04 IMPRESSION: 1. Stable airspace opacities in right mid and lower lung zones and left lower lung zone, consistent with atelectasis or less likely pneumonia. Chest/Abdomen/Pelvis CT 01/19/24 09:48 IMPRESSION: 1. Patchy airspace opacities in right lung upper lobe, consistent with atelectasis versus pneumonia. 2. Small pleural effusions, right worse than left. 3. Small volume of ascites. 4. 8 mm stone in right renal pelvis with right internal ureteral stent in expected position. 5. 2 mm nonobstructing left kidney stone. Labs Labs: Laboratory Results - last 24 hr 01/18/24 01/18/24 01/18/24 13:01 14:33 15:50 WBC RBC Hgb Hct MCV MCH MCHC RDW Plt Count MPV Immature Gran % (Auto) Neut % (Auto) Lymph % (Auto) [place] % (Auto) Eos % (Auto) Baso % (Auto) Lymph # (Auto) [place] # (Auto) Eos # (Auto) Baso # (Auto) Abs Immat Gran (auto) Absolute Neuts (auto) Absolute Nucleated RBC Neutrophils % (Manual) Band Neutrophils % Lymphocytes % (Manual) Monocytes % (Manual) Metamyelocytes % Nucleated RBC % Abs Neuts (Manual) Abs Lymphs (Manual) Abs Monocytes (Manual) Platelet Estimate % Immature Plt Fraction Schistocytes PT INR APTT Fibrinogen D-Dimer Puncture Site Artline ABG pH 7.217 L* ABG pCO2 34.2 L ABG pO2 199.8 H ABG PO2/FiO2 Ratio 3.33 ABG HCO3 13.6 L ABG O2 Saturation 99.1 ABG O2 Content 15.2 L ABG Base Excess -13.1 A-a Gradient 190.4 Oxyhemoglobin 99.0 Carboxyhemoglobin Methemoglobin Reduced Hemoglobin Total Hemoglobin 10.6 L O2 Delivery Device Ventilator O2 Liters/Min Not Reportable Minute Volume Not Reportable Vent Rate 28 Vent Mode Cmv FiO2 60 Tidal Volume 400 PEEP 8 Peak Inspir Pressure Not Reportable Pressure Support Not Reportable Sodium Potassium Chloride Carbon Dioxide Anion Gap BUN Creatinine Estim Creat Clear Calc Estimated GFR Glucose POC Capillary Glucose Lactic Acid 14.3 H* Calcium Phosphorus Magnesium Total Bilirubin AST ALT Alkaline Phosphatase Total Protein Albumin Random Vancomycin 14.4 Blood Type 01/19/24 01/19/24 01/19/24 00:37 01:03 01:10 WBC RBC Hgb Hct MCV MCH MCHC RDW Plt Count MPV Immature Gran % (Auto) Neut % (Auto) Lymph % (Auto) [place] % (Auto) Eos % (Auto) Baso % (Auto) Lymph # (Auto) [place] # (Auto) Eos # (Auto) Baso # (Auto) Abs Immat Gran (auto) Absolute Neuts (auto) Absolute Nucleated RBC Neutrophils % (Manual) Band Neutrophils % Lymphocytes % (Manual) Monocytes % (Manual) Metamyelocytes % Nucleated RBC % Abs Neuts (Manual) Abs Lymphs (Manual) Abs Monocytes (Manual) Platelet Estimate % Immature Plt Fraction Schistocytes PT INR APTT Fibrinogen D-Dimer Puncture Site ABG pH ABG pCO2 ABG pO2 ABG PO2/FiO2 Ratio ABG HCO3 ABG O2 Saturation ABG O2 Content ABG Base Excess A-a Gradient Oxyhemoglobin Carboxyhemoglobin Methemoglobin Reduced Hemoglobin Total Hemoglobin O2 Delivery Device O2 Liters/Min Minute Volume Vent Rate Vent Mode FiO2 Tidal Volume PEEP Peak Inspir Pressure Pressure Support Sodium Potassium Chloride Carbon Dioxide Anion Gap BUN Creatinine Estim Creat Clear Calc Estimated GFR Glucose 180 H POC Capillary Glucose < 20 L* < 20 L* Lactic Acid Calcium Phosphorus Magnesium Total Bilirubin AST ALT Alkaline Phosphatase Total Protein Albumin Random Vancomycin Blood Type 01/19/24 01/19/24 01/19/24 01:22 01:30 02:37 WBC RBC Hgb Hct MCV MCH MCHC RDW Plt Count MPV Immature Gran % (Auto) Neut % (Auto) Lymph % (Auto) [place] % (Auto) Eos % (Auto) Baso % (Auto) Lymph # (Auto) [place] # (Auto) Eos # (Auto) Baso # (Auto) Abs Immat Gran (auto) Absolute Neuts (auto) Absolute Nucleated RBC Neutrophils % (Manual) Band Neutrophils % Lymphocytes % (Manual) Monocytes % (Manual) Metamyelocytes % Nucleated RBC % Abs Neuts (Manual) Abs Lymphs (Manual) Abs Monocytes (Manual) Platelet Estimate % Immature Plt Fraction Schistocytes PT INR APTT Fibrinogen D-Dimer Puncture Site ABG pH ABG pCO2 ABG pO2 ABG PO2/FiO2 Ratio ABG HCO3 ABG O2 Saturation ABG O2 Content ABG Base Excess A-a Gradient Oxyhemoglobin Carboxyhemoglobin Methemoglobin Reduced Hemoglobin Total Hemoglobin O2 Delivery Device O2 Liters/Min Minute Volume Vent Rate Vent Mode FiO2 Tidal Volume PEEP Peak Inspir Pressure Pressure Support Sodium Potassium Chloride Carbon Dioxide Anion Gap BUN Creatinine Estim Creat Clear Calc Estimated GFR Glucose POC Capillary Glucose 35 L* 243 H 206 H Lactic Acid Calcium Phosphorus Magnesium Total Bilirubin AST ALT Alkaline Phosphatase Total Protein Albumin Random Vancomycin Blood Type 01/19/24 01/19/24 01/19/24 05:22 05:30 05:30 WBC 28.8 H RBC 2.54 L Hgb 8.4 L Hct 25.0 L MCV 98.4 MCH 33.1 MCHC 33.6 RDW 14.4 Plt Count 28 L D MPV 11.7 H Immature Gran % (Auto) Not Reportable Neut % (Auto) Not Reportable Lymph % (Auto) Not Reportable [place] % (Auto) Not Reportable Eos % (Auto) Not Reportable Baso % (Auto) Not Reportable Lymph # (Auto) Not Reportable [place] # (Auto) Not Reportable Eos # (Auto) Not Reportable Baso # (Auto) Not Reportable Abs Immat Gran (auto) Not Reportable Absolute Neuts (auto) Not Reportable Absolute Nucleated RBC Not Reportable Neutrophils % (Manual) 85 H Band Neutrophils % 7 H Lymphocytes % (Manual) 5 L Monocytes % (Manual) 2 L Metamyelocytes % 1 Nucleated RBC % Not Reportable Abs Neuts (Manual) 26.49 H Abs Lymphs (Manual) 1.44 Abs Monocytes (Manual) 0.57 Platelet Estimate Decreased % Immature Plt Fraction 16.6 H Schistocytes None seen PT 27.8 H D INR 2.6 APTT 37.9 H Cancelled Fibrinogen 335 D-Dimer 9.68 H Puncture Site Artline ABG pH 7.382 ABG pCO2 34.8 L ABG pO2 125.9 H ABG PO2/FiO2 Ratio 2.52 ABG HCO3 20.2 L ABG O2 Saturation 98.5 ABG O2 Content 18.6 ABG Base Excess -4.1 A-a Gradient 191.5 Oxyhemoglobin 97.9 Carboxyhemoglobin 0.4 Methemoglobin 0.3 Reduced Hemoglobin 1.4 Total Hemoglobin 13.4 O2 Delivery Device Ventilator O2 Liters/Min Not Reportable Minute Volume Not Reportable Vent Rate 28 Vent Mode Cmv FiO2 50 Tidal Volume 400 PEEP 8 Peak Inspir Pressure Not Reportable Pressure Support Not Reportable Sodium 127 L Potassium 4.5 Chloride 83 L Carbon Dioxide 21 L Anion Gap 23 H BUN 39 H Creatinine 4.10 H Estim Creat Clear Calc 12 Estimated GFR 10 L Glucose 141 H POC Capillary Glucose Lactic Acid 9.3 H* Calcium 6.5 L Phosphorus 5.0 H Magnesium 1.4 L Total Bilirubin 2.5 H AST 1018 H ALT 447 H Alkaline Phosphatase 114 Total Protein 6.0 L Albumin 3.7 Random Vancomycin Blood Type 01/19/24 01/19/24 01/19/24 08:56 09:05 11:20 WBC RBC Hgb Hct MCV MCH MCHC RDW Plt Count MPV Immature Gran % (Auto) Neut % (Auto) Lymph % (Auto) [place] % (Auto) Eos % (Auto) Baso % (Auto) Lymph # (Auto) [place] # (Auto) Eos # (Auto) Baso # (Auto) Abs Immat Gran (auto) Absolute Neuts (auto) Absolute Nucleated RBC Neutrophils % (Manual) Band Neutrophils % Lymphocytes % (Manual) Monocytes % (Manual) Metamyelocytes % Nucleated RBC % Abs Neuts (Manual) Abs Lymphs (Manual) Abs Monocytes (Manual) Platelet Estimate % Immature Plt Fraction Schistocytes PT INR APTT Fibrinogen D-Dimer Puncture Site Artline ABG pH 7.557 H* ABG pCO2 25.4 L ABG pO2 79.0 L ABG PO2/FiO2 Ratio 2.63 ABG HCO3 22.1 ABG O2 Saturation 97.2 ABG O2 Content 12.3 L ABG Base Excess 0.4 A-a Gradient 105.1 Oxyhemoglobin 96.2 Carboxyhemoglobin Methemoglobin Reduced Hemoglobin Total Hemoglobin 9.0 L O2 Delivery Device Ventilator O2 Liters/Min Not Reportable Minute Volume Not Reportable Vent Rate 28 Vent Mode Cmv FiO2 30 Tidal Volume 400 PEEP 8 Peak Inspir Pressure Not Reportable Pressure Support Not Reportable Sodium Potassium Chloride Carbon Dioxide Anion Gap BUN Creatinine Estim Creat Clear Calc Estimated GFR Glucose POC Capillary Glucose 65 Lactic Acid 7.6 H* Calcium Phosphorus Magnesium Total Bilirubin AST ALT Alkaline Phosphatase Total Protein Albumin Random Vancomycin Blood Type O Positive 01/19/24 12:19 WBC RBC Hgb Hct MCV MCH MCHC RDW Plt Count MPV Immature Gran % (Auto) Neut % (Auto) Lymph % (Auto) [place] % (Auto) Eos % (Auto) Baso % (Auto) Lymph # (Auto) [place] # (Auto) Eos # (Auto) Baso # (Auto) Abs Immat Gran (auto) Absolute Neuts (auto) Absolute Nucleated RBC Neutrophils % (Manual) Band Neutrophils % Lymphocytes % (Manual) Monocytes % (Manual) Metamyelocytes % Nucleated RBC % Abs Neuts (Manual) Abs Lymphs (Manual) Abs Monocytes (Manual) Platelet Estimate % Immature Plt Fraction Schistocytes PT INR APTT Fibrinogen D-Dimer Puncture Site ABG pH ABG pCO2 ABG pO2 ABG PO2/FiO2 Ratio ABG HCO3 ABG O2 Saturation ABG O2 Content ABG Base Excess A-a Gradient Oxyhemoglobin Carboxyhemoglobin Methemoglobin Reduced Hemoglobin Total Hemoglobin O2 Delivery Device O2 Liters/Min Minute Volume Vent Rate Vent Mode FiO2 Tidal Volume PEEP Peak Inspir Pressure Pressure Support Sodium Potassium Chloride Carbon Dioxide Anion Gap BUN Creatinine Estim Creat Clear Calc Estimated GFR Glucose POC Capillary Glucose 144 H Lactic Acid Calcium Phosphorus Magnesium Total Bilirubin AST ALT Alkaline Phosphatase Total Protein Albumin Random Vancomycin Blood Type
[2024-01-19] MEDS: CALCIUM GLUC 2,000 MG/NS 100ML 2,000 MG/100 ML BAG 100 MG IVPB (12:58)
--- NOTE | 2024-01-19 14:39 | P.PCNBED_ITS ---
Procedures Hemodialysis Catheter Placement Left IJ: Discussed w/ patient and/or surrogate, the non-emergent placement of a hemodialysis catheter, including it's clinincal necessity/indication & associated potential risks & complications.: Yes The patient and/or surrogate understand(s) and acknowledge(s) the need to proceed with hemodialysis catheter insertion as an important element of the patient's clinical management.: Yes Consent: Consent obtained HD Catheter Date: 01/19/24 HD Catheter Time: 14:40 Pre-procedural Time-Out was completed immediately before starting the procedure and confirmed: Patient Identification, Site, Procedure, Patient Position and the Availability of Requisite Equipment.: Yes Patient Position: supine Patient Placed on Monitor/Pulse Ox: Yes Provider Prep: mask, sterile gown, sterile gloves, Max. sterile barrier precautions, cap and hand hygiene Hemodialysis Catheter Prep: Chlorhexidine scrub Local Anesthesia Used: lidocaine 1% Amount of anesthesia used (mL): 3 Ultrasound Used for Placement: Yes Hemodialysis Catheter Inserted: triple Danish: 12 Length (cm): 20 Depth of Insertion (cm): 20 Post Procedure: sutured in place, good blood return, all ports aspirated, flushed, capped, transparent dressing, hemostatic product, antimicrobial product, securement product and aseptic technique maintained throughout procedure Post Procedure X-Ray: tip of catheter in good position and no pneumothorax seen Patient Tolerated Procedure: well Complications: none
--- NOTE | 2024-01-19 15:14 | P.PN_ITS ---
Progress Note: A&P Assessment and Plan (1) Septic shock: Code(s): A41.9 - Sepsis, unspecified organism; R65.21 - Severe sepsis with septic shock Status: Acute Assessment and Plan: The patient meets criteria for septic shock with refractory hypotension, acute kidney injury, leukocytosis with bandemia, tachypnea, tachycardia, and fever. Source is urinary tract infection related to obstructing ureteral stone. * Central line inserted 01/17/2024 per anesthesiologist. * Currently on norepinephrine, vasopressin, and phenylephrine. * Maintain SBP > 95 and MAP > 65 for adequate end-organ perfusion. * Add stress dose steroids, hydrocortisone 100 mg q.8 hours. * Continue aztreonam and vancomycin pending blood and urine cultures. (2) Urinary tract infection: Code(s): N39.0 - Urinary tract infection, site not specified Status: Acute Assessment and Plan: UTI secondary to obstructing stones. Urinalysis was positive for 3+ leukocyte esterase, > 100 WBC, and 4+ bacteria. * Receive ciprofloxacin 200 mg in the ED; she has multiple drug allergies. * Changed to aztreonam 1 g q.8 hours and vancomycin pending cultures. (3) Right ureteral stone: Code(s): N20.1 - Calculus of ureter Status: Acute Assessment and Plan: CT scan showed an 11 mm stone at the right ureteropelvic junction with mild right hydronephrosis. * Postoperative day 0 status post cystoscopy with ureteral stent placement. * Needs close follow-up with Dr. Gudino for definitive management pending resolution of infection. (4) Hydronephrosis: Code(s): N13.30 - Unspecified hydronephrosis Status: Acute Assessment and Plan: CT scan showed mild right hydronephrosis secondary to ureteral stone. * Status post cystoscopy and stent placement. (5) Acute kidney injury: Code(s): N17.9 - Acute kidney failure, unspecified Status: Acute Assessment and Plan: Due to a combination of obstructing stone, hypoperfusion from hypotension, and sepsis; she is also on thiazide and loop diuretics as well as NSAIDS. * Rocha catheter has been inserted for strict I/O with minimal output since surgery. * Continue judicious IV fluid rehydration with close monitoring of volume status. * Renally dose all medications and hold nephrotoxic agents. * Renal ultrasound has been ordered for a.m. (6) Acute respiratory failure: Code(s): J96.00 - Acute respiratory failure, unspecified whether with hypoxia or hypercapnia Status: Acute Assessment and Plan: Patient is tachypneic and hypoxic due to acidosis. Chest x-ray is clear. * ABG shows concomitant metabolic and respiratory acidosis. * Patient was started on Vapotherm with some improvement but deteriorated and was subsequently intubated. * Currently on CMV with a tidal volume of 350, rate 24, peep 5. * Sedation with very low-dose fentanyl (patient reports significant nausea and vomiting) and midazolam. (7) Electrolyte abnormality: Code(s): E87.8 - Other disorders of electrolyte and fluid balance, not elsewhere classified Status: Acute Assessment and Plan: Patient has several electrolyte abnormalities including hypocalcemia and hypomagnesemia. * Calcium and magnesium will be replaced and monitored closely. (8) Hypertension: Code(s): I10 - Essential (primary) hypertension Status: Acute Assessment and Plan: She has refractory hypotension is currently on vasopressors as above. * Continue to hold antihypertensives. Plan on 01/16 patient was seen by her urologist for infected stone and had cystoscopy and right ureteral stent placement emergently, and was found to have UTI. Patient was started on broad-spectrum antibiotics. patient went to sepsis with hypotension was started on vasopressin, norepinephrine and fluids, patient condition was worsening and patient was intubated. on 01/17 assistant softball coach spoke with the patient's family and recommended to add another pressor and also discussed the long-term care and family has decided to place the patient DNR. today patient clinical symptoms are improving her BP is trending up and currently requiring only one pressure, however her Sr Cr remains elevated patient have temporary dialysis to improver her kidney function, also there was concern that patient may have injury her intestine, CT scan of abdomen did not show any perforation and seen by general surgeon does not suspect patient has any perforation however there is likelihood of ischemic bowl possibly 2/2 hypoperfusion. we appreciate assistant softball coach, will continue to monitor and follow the patient. Subjective Date/time seen: 01/19/24 15:14 Interval history: on 01/16 patient was seen by her urologist for infected stone and had cystoscopy and right ureteral stent placement emergently, and was found to have UTI. Patient was started on broad-spectrum antibiotics. patient went to sepsis with hypotension was started on vasopressin, norepinephrine and fluids, patient condition was worsening and patient was intubated. on 01/17 assistant softball coach spoke with the patient's family and recommended to add another pressor and also disc ussed the long-term care and family has decided to place the patient DNR. today patient clinical symptoms are improving her BP is trending up and currently requiring only one pressure, however her Sr Cr remains elevated patient have temporary dialysis to improver her kidney function, also there was concern that patient may have injury her intestine, CT scan of abdomen did not show any perforation and seen by general surgeon does not suspect patient has any perforation however there is likelihood of ischemic bowl possibly 2/2 hypoperfusion. we appreciate assistant softball coach, will continue to monitor and follow the patient. Review of Systems Review of Systems: ROS unobtainable: Yes unobtainable due to endotracheal tube Exam Narrative: Morbidly obese Patient is comfortable, NAD HEENT: ET tube in place LUNGS:CTA HEART: RR S1S2 ABD: BS+, Soft and nontender Lower extremities: no edema SKIN: nonjaundiced Neuro: On vent and sedated. Objective Data Vital Signs Vital Signs: Vital Signs - 24 hr 01/18/24 16:00 01/18/24 16:00 01/18/24 16:00 Temperature Pulse Rate 95 95 95 Respiratory Rate Blood Pressure 113/63 113/63 113/62 Pulse Oximetry Oxygen Delivery Fraction of Inspired Oxygen 01/18/24 16:00 01/18/24 16:00 01/18/24 16:00 Temperature Pulse Rate 91 92 91 Respiratory Rate 28 H 28 H Blood Pressure 111/62 Pulse Oximetry Oxygen Delivery Fraction of Inspired Oxygen 01/18/24 16:00 01/18/24 16:00 01/18/24 16:00 Temperature Pulse Rate 91 93 Respiratory Rate 28 H Blood Pressure Pulse Oximetry 100 Oxygen Delivery Mechanical Ventilation Fraction of Inspired Oxygen 60 60 01/18/24 17:00 01/18/24 17:14 01/18/24 16:00 Temperature 38.1 C H 37.9 C H Pulse Rate 92 91 90 Respiratory Rate 28 H 28 H Blood Pressure 117/64 116/64 113/65 Pulse Oximetry 99 98 Oxygen Delivery Fraction of Inspired Oxygen 01/18/24 16:34 01/18/24 18:00 01/18/24 18:18 Temperature 37.9 C H Pulse Rate 96 90 96 Respiratory Rate 28 H Blood Pressure 113/65 109/57 L Pulse Oximetry 97 98 Oxygen Delivery Mechanical Ventilation Fraction of Inspired Oxygen 60 01/18/24 18:19 01/18/24 18:00 01/18/24 18:00 Temperature Pulse Rate 96 101 H 94 Respiratory Rate 32 H Blood Pressure 109/57 L Pulse Oximetry Oxygen Delivery Fraction of Inspired Oxygen 01/18/24 18:00 01/18/24 18:00 01/18/24 18:00 Temperature Pulse Rate 95 95 95 Respiratory Rate Blood Pressure 110/58 L 111/58 L 111/58 L Pulse Oximetry Oxygen Delivery Fraction of Inspired Oxygen 01/18/24 18:00 01/18/24 18:33 01/18/24 19:14 Temperature Pulse Rate 100 95 91 Respiratory Rate 31 H Blood Pressure 108/59 L 116/60 Pulse Oximetry Oxygen Delivery Fraction of Inspired Oxygen 01/18/24 19:15 01/18/24 19:25 01/18/24 19:40 Temperature Pulse Rate 91 92 93 Respiratory Rate Blood Pressure 116/60 135/69 132/68 Pulse Oximetry Oxygen Delivery Fraction of Inspired Oxygen 01/18/24 19:55 01/18/24 20:00 01/18/24 20:00 Temperature Pulse Rate 92 92 92 Respiratory Rate Blood Pressure 132/68 132/78 132/78 Pulse Oximetry Oxygen Delivery Fraction of Inspired Oxygen 01/18/24 20:00 01/18/24 20:00 01/18/24 20:00 Temperature Pulse Rate 92 92 92 Respiratory Rate 28 H Blood Pressure 132/78 132/78 Pulse Oximetry Oxygen Delivery Fraction of Inspired Oxygen 01/18/24 20:00 01/18/24 20:15 01/18/24 19:00 Temperature 38.1 C H Pulse Rate 92 91 91 Respiratory Rate 28 H 28 H Blood Pressure 130/66 122/63 Pulse Oximetry 96 Oxygen Delivery Fraction of Inspired Oxygen 01/18/24 20:00 01/18/24 20:00 01/18/24 20:00 Temperature 38.1 C H Pulse Rate 92 92 Respiratory Rate 28 H 28 H Blood Pressure 132/78 Pulse Oximetry 91 97 Oxygen Delivery Mechanical Ventilation Fraction of Inspired Oxygen 60 60 01/18/24 20:25 01/18/24 20:45 01/18/24 21:00 Temperature Pulse Rate 90 91 90 Respiratory Rate 28 H Blood Pressure 128/65 Pulse Oximetry 98 Oxygen Delivery Mechanical Ventilation Fraction of Inspired Oxygen 60 01/18/24 21:05 01/18/24 20:00 01/18/24 21:00 Temperature 38.1 C H Pulse Rate 91 91 91 Respiratory Rate 28 H Blood Pressure 135/70 133/67 Pulse Oximetry 97 Oxygen Delivery Fraction of Inspired Oxygen 01/18/24 21:29 01/18/24 21:48 01/18/24 22:00 Temperature Pulse Rate 92 91 92 Respiratory Rate Blood Pressure 138/70 137/70 136/69 Pulse Oximetry Oxygen Delivery Fraction of Inspired Oxygen 01/18/24 22:00 01/18/24 22:00 01/18/24 22:00 Temperature Pulse Rate 91 91 91 Respiratory Rate Blood Pressure 136/69 136/69 136/69 Pulse Oximetry Oxygen Delivery Fraction of Inspired Oxygen 01/18/24 22:00 01/18/24 22:00 01/18/24 22:05 Temperature Pulse Rate 91 91 90 Respiratory Rate 28 H 28 H Blood Pressure 131/68 Pulse Oximetry Oxygen Delivery Fraction of Inspired Oxygen 01/18/24 22:00 01/18/24 22:00 01/18/24 22:30 Temperature 38.1 C H Pulse Rate 91 91 90 Respiratory Rate 28 H Blood Pressure 135/69 135/70 Pulse Oximetry 97 Oxygen Delivery Fraction of Inspired Oxygen 01/18/24 22:57 01/18/24 23:19 01/18/24 23:15 Temperature Pulse Rate 92 90 91 Respiratory Rate Blood Pressure 135/71 140/73 Pulse Oximetry 96 Oxygen Delivery Mechanical Ventilation Fraction of Inspired Oxygen 60 01/18/24 23:00 01/18/24 23:42 01/18/24 23:57 Temperature 38.2 C H Pulse Rate 92 94 91 Respiratory Rate 28 H Blood Pressure 135/71 128/29 L 134/71 Pulse Oximetry 96 Oxygen Delivery Fraction of Inspired Oxygen 01/19/24 01:10 01/19/24 01:30 01/19/24 00:00 Temperature Pulse Rate 84 83 88 Respiratory Rate Blood Pressure 134/66 139/69 134/70 Pulse Oximetry Oxygen Delivery Fraction of Inspired Oxygen 01/19/24 00:00 01/19/24 00:00 01/19/24 00:00 Temperature Pulse Rate 88 88 88 Respiratory Rate Blood Pressure 134/70 134/70 134/70 Pulse Oximetry Oxygen Delivery Fraction of Inspired Oxygen 01/19/24 00:00 01/19/24 00:00 01/19/24 00:19 Temperature Pulse Rate 88 88 90 Respiratory Rate 28 H 28 H Blood Pressure 136/71 Pulse Oximetry Oxygen Delivery Fraction of Inspired Oxygen 01/19/24 00:30 01/19/24 00:35 01/19/24 00:00 Temperature Pulse Rate 89 89 91 Respiratory Rate Blood Pressure 137/72 136/71 Pulse Oximetry Oxygen Delivery Fraction of Inspired Oxygen 01/19/24 00:00 01/19/24 00:00 01/19/24 00:00 Temperature 38.3 C H Pulse Rate 88 88 Respiratory Rate 28 H 28 H Blood Pressure 134/70 Pulse Oximetry 95 95 Oxygen Delivery Mechanical Ventilation Fraction of Inspired Oxygen 60 60 01/19/24 01:00 01/19/24 01:55 01/19/24 01:45 Temperature 38.2 C H Pulse Rate 83 93 82 Respiratory Rate 28 H Blood Pressure 140/70 140/73 134/67 Pulse Oximetry 94 Oxygen Delivery Fraction of Inspired Oxygen 01/19/24 01:47 01/19/24 02:00 01/19/24 02:00 Temperature Pulse Rate 81 93 93 Respiratory Rate Blood Pressure 139/73 139/73 Pulse Oximetry 94 Oxygen Delivery Mechanical Ventilation Fraction of Inspired Oxygen 60 01/19/24 02:00 01/19/24 02:00 01/19/24 02:00 Temperature Pulse Rate 93 93 93 Respiratory Rate 28 H 28 H Blood Pressure 137/73 Pulse Oximetry Oxygen Delivery Fraction of Inspired Oxygen 01/19/24 02:07 01/19/24 02:00 01/19/24 02:00 Temperature 38.1 C H Pulse Rate 93 93 93 Respiratory Rate 28 H Blood Pressure 139/73 139/73 Pulse Oximetry 94 Oxygen Delivery Fraction of Inspired Oxygen 01/19/24 02:15 01/19/24 02:30 01/19/24 03:20 Temperature Pulse Rate 93 79 78 Respiratory Rate Blood Pressure 137/73 131/69 136/72 Pulse Oximetry Oxygen Delivery Fraction of Inspired Oxygen 01/19/24 03:00 01/19/24 03:30 01/19/24 03:40 Temperature 38.0 C H Pulse Rate 80 79 78 Respiratory Rate 28 H Blood Pressure 133/71 133/71 127/69 Pulse Oximetry 94 Oxygen Delivery Fraction of Inspired Oxygen 01/19/24 03:50 01/19/24 04:10 01/19/24 04:20 Temperature Pulse Rate 92 79 79 Respiratory Rate Blood Pressure 150/87 H 139/80 124/65 Pulse Oximetry Oxygen Delivery Fraction of Inspired Oxygen 01/19/24 04:00 01/19/24 04:00 01/19/24 04:00 Temperature Pulse Rate 79 79 79 Respiratory Rate 28 H Blood Pressure 133/75 133/75 Pulse Oximetry Oxygen Delivery Fraction of Inspired Oxygen 01/19/24 04:00 01/19/24 04:00 01/19/24 04:00 Temperature 38.0 C H Pulse Rate 79 79 Respiratory Rate 28 H 28 H Blood Pressure 133/75 Pulse Oximetry 96 Oxygen Delivery Fraction of Inspired Oxygen 50 01/19/24 05:00 01/19/24 04:00 01/19/24 05:18 Temperature 37.8 C H Pulse Rate 87 79 86 Respiratory Rate 28 H 28 H Blood Pressure 106/60 123/68 Pulse Oximetry 95 97 Oxygen Delivery Mechanical Ventilation Fraction of Inspired Oxygen 50 01/19/24 05:33 01/19/24 05:48 01/19/24 06:00 Temperature Pulse Rate 74 76 77 Respiratory Rate Blood Pressure 120/64 126/67 125/66 Pulse Oximetry Oxygen Delivery Fraction of Inspired Oxygen 01/19/24 06:00 01/19/24 06:00 01/19/24 06:00 Temperature Pulse Rate 75 76 77 Respiratory Rate 28 H Blood Pressure 125/66 125/65 Pulse Oximetry Oxygen Delivery Fraction of Inspired Oxygen 01/19/24 06:00 01/19/24 06:08 01/19/24 06:12 Temperature Pulse Rate 77 76 75 Respiratory Rate 28 H 28 H Blood Pressure 122/63 Pulse Oximetry Oxygen Delivery Fraction of Inspired Oxygen 01/19/24 06:13 01/19/24 04:00 01/19/24 06:00 Temperature Pulse Rate 75 81 76 Respiratory Rate Blood Pressure 131/68 Pulse Oximetry Oxygen Delivery Fraction of Inspired Oxygen 01/19/24 06:00 01/19/24 06:15 01/19/24 06:30 Temperature 37.8 C H Pulse Rate 75 75 Respiratory Rate Blood Pressure 126/65 Pulse Oximetry 96 Oxygen Delivery Mechanical Ventilation Fraction of Inspired Oxygen 50 01/19/24 06:40 01/19/24 06:53 01/19/24 06:53 Temperature Pulse Rate 86 88 87 Respiratory Rate Blood Pressure 126/67 118/62 118/63 Pulse Oximetry Oxygen Delivery Fraction of Inspired Oxygen 01/19/24 07:59 01/19/24 08:23 01/19/24 10:21 Temperature Pulse Rate 87 85 Respiratory Rate Blood Pressure 102/52 L Pulse Oximetry 96 94 Oxygen Delivery Mechanical Ventilation Mechanical Ventilation Fraction of Inspired Oxygen 50 40 01/19/24 09:56 01/19/24 10:30 01/19/24 07:00 Temperature 37.6 C 37.4 C Pulse Rate 76 76 75 Respiratory Rate 28 H 28 H Blood Pressure 109/58 L 115/61 Pulse Oximetry 96 92 92 Oxygen Delivery Mechanical Ventilation Fraction of Inspired Oxygen 40 01/19/24 08:00 01/19/24 08:00 01/19/24 08:00 Temperature 37.4 C Pulse Rate 88 87 Respiratory Rate 28 H Blood Pressure 112/60 Pulse Oximetry 96 Oxygen Delivery Fraction of Inspired Oxygen 40 01/19/24 09:00 01/19/24 08:00 01/19/24 10:48 Temperature 37.5 C 37.5 C Pulse Rate 75 75 74 Respiratory Rate 28 H 28 H Blood Pressure 120/65 121/65 Pulse Oximetry 98 94 Oxygen Delivery Mechanical Ventilation Fraction of Inspired Oxygen 40 01/19/24 10:48 01/19/24 10:00 01/19/24 10:00 Temperature 37.5 C Pulse Rate 76 74 Respiratory Rate 28 H Blood Pressure 122/66 Pulse Oximetry 93 94 Oxygen Delivery Mechanical Ventilation Fraction of Inspired Oxygen 30 01/19/24 11:41 01/19/24 11:45 01/19/24 11:33 Temperature 37.4 C Pulse Rate 85 85 73 Respiratory Rate 22 H Blood Pressure 141/78 H 140/77 Pulse Oximetry 95 95 Oxygen Delivery Mechanical Ventilation Fraction of Inspired Oxygen 30 01/19/24 11:50 01/19/24 11:55 01/19/24 11:56 Temperature 37.4 C Pulse Rate 84 70 72 Respiratory Rate 22 H Blood Pressure 141/77 H 136/72 135/73 Pulse Oximetry 95 Oxygen Delivery Fraction of Inspired Oxygen 01/19/24 12:00 01/19/24 12:56 01/19/24 13:00 Temperature 37.3 C Pulse Rate 71 82 82 Respiratory Rate 22 H Blood Pressure 126/68 135/72 136/72 Pulse Oximetry 94 Oxygen Delivery Fraction of Inspired Oxygen 01/19/24 13:30 01/19/24 13:50 01/19/24 13:50 Temperature 37.2 C Pulse Rate 741 H 81 81 Respiratory Rate 22 H 22 H Blood Pressure 137/72 132/70 Pulse Oximetry 98 Oxygen Delivery Fraction of Inspired Oxygen 01/19/24 13:50 01/19/24 14:05 01/19/24 14:30 Temperature 37.1 C Pulse Rate 81 81 70 Respiratory Rate 22 H 22 H Blood Pressure 128/68 144/79 H Pulse Oximetry 98 Oxygen Delivery Fraction of Inspired Oxygen 01/19/24 14:38 01/19/24 14:39 01/19/24 14:36 Temperature Pulse Rate 70 70 71 Respiratory Rate 22 H 22 H Blood Pressure Pulse Oximetry 94 Oxygen Delivery Mechanical Ventilation Fraction of Inspired Oxygen 30 Intake/Output Intake/Output: Intake & Output 01/16/24 01/17/24 01/18/24 01/19/24 23:59 23:59 23:59 23:59 Intake Total 4514.6 6609.8 2792.8 Output Total 140 200 85 Balance 4374.6 6409.8 2707.8 Meds/Results Medications: Active Medications Generic Name Dose Route Start Last Admin Trade Name Freq PRN Reason Stop Dose Admin Atorvastatin Calcium 10 mg 01/18/24 09:00 Atorvastatin 10 Mg Tablet PO DAILY [facility] Dextrose 12.5 gm 01/19/24 00:44 01/19/24 01:08 Dextrose 50% 25 Gm/50 Ml Syringe IV PUSH 12.5 gm PRN PRN Administration Hypoglycemia Protocol Duloxetine HCl 120 mg 01/18/24 09:00 01/18/24 07:54 Duloxetine Hcl 60 Mg Capsule.Dr PO 120 mg DAILY TANNA Administration Empagliflozin 10 mg 01/18/24 09:00 Empagliflozin 10 Mg Tablet PO DAILY TANNA Epoetin Brent-epbx 10,000 units 01/19/24 20:00 Epoetin Brent-Epbx 10,000 Units/Ml Vial IV PUSH 01/19/24 20:01 ONCE ONE Glucagon 1 mg 01/19/24 00:44 Glucagon For Inj 1 Mg Vial IM PRN PRN Hypoglycemia Protocol Glucose 15 gm 01/19/24 00:44 Glucose Oral Gel 15 Gm Of Glucse In 37.5 Gm Tube PO PRN PRN Hypoglycemia Protocol Hydrocortisone Sodium Succinate 100 mg 01/17/24 22:00 01/19/24 12:58 Hydrocortisone Sodium Succinate 100 Mg/2 Ml Vial IV PUSH 100 mg Q8HR TANNA Administration Norepinephrine Bitartrate 8 mg in 250 mls @ 9.375 mls/hr 01/17/24 13:00 01/19/24 14:30 Levophed 8 Mg/D5w 250 Ml IV CONT 5 mcg/min .Q24H TANNA 9.38 mls/hr Titration Protocol 5 MCG/MIN Vasopressin 100 units/ 100 mls @ 0.6 mls/hr 01/17/24 15:15 01/19/24 06:08 Dextrose IV CONT Infused .Q72H TANNA Titration Protocol 0.01 UNITS/MIN Fentanyl Citrate 2,500 mcg in 250 mls @ 5 mls/hr 01/17/24 22:35 01/19/24 14:38 Fentanyl 2,500 Mcg/Ns 250 Ml IV CONT 50 mcg/hr .Q50H TANNA 5 mls/hr Titration Protocol 50 MCG/HR Midazolam HCl 100 mg in 100 mls @ 2 mls/hr 01/17/24 22:35 01/19/24 14:39 Versed 100 Mg/Ns 100 Ml IV CONT 2 mg/hr .Q50H TANNA 2 mls/hr Titration Protocol 2 MG/HR Dextrose 1,000 mls @ 100 mls/hr 01/19/24 00:44 Dextrose 5% 1,000 Ml IVPB PRN PRN Hypoglycemia Protocol Sodium Chloride 250 mls @ 30 mls/hr 01/19/24 07:53 01/19/24 10:25 Normal Saline Iv IV CONT 01/19/24 16:12 30 mls/hr .Q8H20M STA Administration Sodium Bicarbonate 150 meq/ 1,100 mls @ 100 mls/hr 01/19/24 10:00 01/19/24 10:22 Dextrose IV CONT 100 mls/hr .Q11H TANNA Administration Aztreonam 1 gm/ Sodium 50 mls @ 100 mls/hr 01/19/24 18:00 Chloride IVPB Q12H TANNA Albumin Human 50 mls @ 999 mls/hr 01/19/24 12:02 Albutein IVPB 02/18/24 12:01 Q10M PRN HYPOTENSION Multi-Ingred Cream/Lotion/Oil/Oint 1 applic 01/18/24 09:00 01/19/24 09:06 Mineral Oil/White Petrolatum Ointment EACH EYE 1 applic Q12HR TANNA Administration Nabumetone 750 mg 01/17/24 21:00 Nabumetone 750 Mg Tablet PO Q12HR TANNA Ondansetron HCl 4 mg 01/17/24 12:42 01/17/24 12:51 Ondansetron Inj 4 Mg/2 Ml Vial IV PUSH 4 mg Q4H PRN Administration Nausea Ondansetron HCl 4 mg 01/17/24 15:19 Ondansetron Hcl Odt 4 Mg Tablet PO Q6H PRN Nausea Oxycodone HCl 5 mg 01/17/24 15:19 Oxycodone Hcl (*Crx) 5 Mg Tab Ir PO Q6-8H PRN Pain (Scale Score 7-10) Pantoprazole Sodium 40 mg 01/18/24 09:00 01/18/24 07:51 Pantoprazole 40 Mg Tablet PO 40 mg DAILY TANNA Administration Pantoprazole Sodium 40 mg 01/19/24 09:00 01/19/24 09:06 Pantoprazole Sodium Iv 40 Mg Vial IV PUSH 40 mg Q12HR TANNA Administration Sodium Chloride 10 ml 01/17/24 22:00 01/19/24 12:58 Central Line Flush IV PUSH 10 ml Q8HR TANNA Administration Sodium Chloride 20 ml 01/17/24 16:51 Central Line Flush IV PUSH PRN PRN after blood draws Sumatriptan Succinate 50 mg 01/17/24 15:19 Sumatriptan Succinate 25 Mg Tablet PO Q8H PRN Headache Tamoxifen Citrate 20 mg 01/18/24 09:00 01/18/24 07:54 Tamoxifen Citrate (*Chemo) 10 Mg Tablet PO 20 mg DAILY TANNA Administration Vancomycin HCl 1 each 01/17/24 16:30 Vancomycin For Acute Kidney Injury IVPB PRN PRN Vancomycin Protocol Radiology Results: ITS Impressions Abdomen/Pelvis CT 01/17/24 10:23 IMPRESSION: 1. 11 mm stone at right ureteropelvic junction with mild right hydronephrosis. 2. 1 mm nonobstructing left kidney stone. 3. 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 Ureter Stent X-Ray 01/17/24 15:20 IMPRESSION: 1. Persistent stone at the right ureteropelvic junction with placement of a right internal ureteral stent in expected position. Is unclear the stone has been removed on the final image and would correlate with procedure note for further detail. Renal Ultrasound 01/17/24 19:03 IMPRESSION: 1. 7.2 cm left renal cyst. Otherwise normal kidneys with no hydronephrosis. Abdomen X-Ray 01/17/24 23:21 IMPRESSION: 1. Endotracheal tube and nasogastric tube in expected positions as detailed above. 2. Unchanged mild elevation of the right hemidiaphragm with streaky atelectasis versus less likely pneumonia at the bilateral lower lung zones. Chest/Abdomen/Pelvis CT 01/19/24 09:48 IMPRESSION: 1. Patchy airspace opacities in right lung upper lobe, consistent with atelectasis versus pneumonia. 2. Small pleural effusions, right worse than left. 3. Small volume of ascites. 4. 8 mm stone in right renal pelvis with right internal ureteral stent in expected position. 5. 2 mm nonobstructing left kidney stone. Chest X-Ray 01/19/24 14:47 IMPRESSION: 1. Lines and tubes in expected positions as detailed above. 2. Opacities in the bilateral lower lungs and perihilar regions which could represent atelectasis, pneumonia, mild pulmonary edema or some combination are of. 2. Cardiomegaly. Labs Labs: Laboratory Results - last 24 hr 01/18/24 01/19/24 01/19/24 15:50 00:37 01:03 WBC RBC Hgb Hct MCV MCH MCHC RDW Plt Count MPV Immature Gran % (Auto) Neut % (Auto) Lymph % (Auto) Osborne % (Auto) Eos % (Auto) Baso % (Auto) Lymph # (Auto) Osborne # (Auto) Eos # (Auto) Baso # (Auto) Abs Immat Gran (auto) Absolute Neuts (auto) Absolute Nucleated RBC Neutrophils % (Manual) Band Neutrophils % Lymphocytes % (Manual) Monocytes % (Manual) Metamyelocytes % Nucleated RBC % Abs Neuts (Manual) Abs Lymphs (Manual) Abs Monocytes (Manual) Platelet Estimate % Immature Plt Fraction Schistocytes PT INR APTT Fibrinogen D-Dimer Puncture Site ABG pH ABG pCO2 ABG pO2 ABG PO2/FiO2 Ratio ABG HCO3 ABG O2 Saturation ABG O2 Content ABG Base Excess A-a Gradient Oxyhemoglobin Carboxyhemoglobin Methemoglobin Reduced Hemoglobin Total Hemoglobin O2 Delivery Device O2 Liters/Min Minute Volume Vent Rate Vent Mode FiO2 Tidal Volume PEEP Peak Inspir Pressure Pressure Support Sodium Potassium Chloride Carbon Dioxide Anion Gap BUN Creatinine Estim Creat Clear Calc Estimated GFR Glucose POC Capillary Glucose < 20 L* < 20 L* Lactic Acid Calcium Phosphorus Magnesium Total Bilirubin AST ALT Alkaline Phosphatase Total Protein Albumin Random Vancomycin 14.4 Blood Type 01/19/24 01/19/24 01/19/24 01:10 01:22 01:30 WBC RBC Hgb Hct MCV MCH MCHC RDW Plt Count MPV Immature Gran % (Auto) Neut % (Auto) Lymph % (Auto) Osborne % (Auto) Eos % (Auto) Baso % (Auto) Lymph # (Auto) Osborne # (Auto) Eos # (Auto) Baso # (Auto) Abs Immat Gran (auto) Absolute Neuts (auto) Absolute Nucleated RBC Neutrophils % (Manual) Band Neutrophils % Lymphocytes % (Manual) Monocytes % (Manual) Metamyelocytes % Nucleated RBC % Abs Neuts (Manual) Abs Lymphs (Manual) Abs Monocytes (Manual) Platelet Estimate % Immature Plt Fraction Schistocytes PT INR APTT Fibrinogen D-Dimer Puncture Site ABG pH ABG pCO2 ABG pO2 ABG PO2/FiO2 Ratio ABG HCO3 ABG O2 Saturation ABG O2 Content ABG Base Excess A-a Gradient Oxyhemoglobin Carboxyhemoglobin Methemoglobin Reduced Hemoglobin Total Hemoglobin O2 Delivery Device O2 Liters/Min Minute Volume Vent Rate Vent Mode FiO2 Tidal Volume PEEP Peak Inspir Pressure Pressure Support Sodium Potassium Chloride Carbon Dioxide Anion Gap BUN Creatinine Estim Creat Clear Calc Estimated GFR Glucose 180 H POC Capillary Glucose 35 L* 243 H Lactic Acid Calcium Phosphorus Magnesium Total Bilirubin AST ALT Alkaline Phosphatase Total Protein Albumin Random Vancomycin Blood Type 01/19/24 01/19/24 01/19/24 02:37 05:22 05:30 WBC 28.8 H RBC 2.54 L Hgb 8.4 L Hct 25.0 L MCV 98.4 MCH 33.1 MCHC 33.6 RDW 14.4 Plt Count 28 L D MPV 11.7 H Immature Gran % (Auto) Not Reportable Neut % (Auto) Not Reportable Lymph % (Auto) Not Reportable Osborne % (Auto) Not Reportable Eos % (Auto) Not Reportable Baso % (Auto) Not Reportable Lymph # (Auto) Not Reportable Osborne # (Auto) Not Reportable Eos # (Auto) Not Reportable Baso # (Auto) Not Reportable Abs Immat Gran (auto) Not Reportable Absolute Neuts (auto) Not Reportable Absolute Nucleated RBC Not Reportable Neutrophils % (Manual) 85 H Band Neutrophils % 7 H Lymphocytes % (Manual) 5 L Monocytes % (Manual) 2 L Metamyelocytes % 1 Nucleated RBC % Not Reportable Abs Neuts (Manual) 26.49 H Abs Lymphs (Manual) 1.44 Abs Monocytes (Manual) 0.57 Platelet Estimate Decreased % Immature Plt Fraction 16.6 H Schistocytes None seen PT 27.8 H D INR 2.6 APTT 37.9 H Fibrinogen D-Dimer Puncture Site Artline ABG pH 7.382 ABG pCO2 34.8 L ABG pO2 125.9 H ABG PO2/FiO2 Ratio 2.52 ABG HCO3 20.2 L ABG O2 Saturation 98.5 ABG O2 Content 18.6 ABG Base Excess -4.1 A-a Gradient 191.5 Oxyhemoglobin 97.9 Carboxyhemoglobin 0.4 Methemoglobin 0.3 Reduced Hemoglobin 1.4 Total Hemoglobin 13.4 O2 Delivery Device Ventilator O2 Liters/Min Not Reportable Minute Volume Not Reportable Vent Rate 28 Vent Mode Cmv FiO2 50 Tidal Volume 400 PEEP 8 Peak Inspir Pressure Not Reportable Pressure Support Not Reportable Sodium Potassium Chloride Carbon Dioxide Anion Gap BUN Creatinine Estim Creat Clear Calc Estimated GFR Glucose POC Capillary Glucose 206 H Lactic Acid Calcium Phosphorus Magnesium Total Bilirubin AST ALT Alkaline Phosphatase Total Protein Albumin Random Vancomycin Blood Type 01/19/24 01/19/24 01/19/24 05:30 08:56 09:05 WBC RBC Hgb Hct MCV MCH MCHC RDW Plt Count MPV Immature Gran % (Auto) Neut % (Auto) Lymph % (Auto) Osborne % (Auto) Eos % (Auto) Baso % (Auto) Lymph # (Auto) Osborne # (Auto) Eos # (Auto) Baso # (Auto) Abs Immat Gran (auto) Absolute Neuts (auto) Absolute Nucleated RBC Neutrophils % (Manual) Band Neutrophils % Lymphocytes % (Manual) Monocytes % (Manual) Metamyelocytes % Nucleated RBC % Abs Neuts (Manual) Abs Lymphs (Manual) Abs Monocytes (Manual) Platelet Estimate % Immature Plt Fraction Schistocytes PT INR APTT Cancelled Fibrinogen 335 D-Dimer 9.68 H Puncture Site ABG pH ABG pCO2 ABG pO2 ABG PO2/FiO2 Ratio ABG HCO3 ABG O2 Saturation ABG O2 Content ABG Base Excess A-a Gradient Oxyhemoglobin Carboxyhemoglobin Methemoglobin Reduced Hemoglobin Total Hemoglobin O2 Delivery Device O2 Liters/Min Minute Volume Vent Rate Vent Mode FiO2 Tidal Volume PEEP Peak Inspir Pressure Pressure Support Sodium 127 L Potassium 4.5 Chloride 83 L Carbon Dioxide 21 L Anion Gap 23 H BUN 39 H Creatinine 4.10 H Estim Creat Clear Calc 12 Estimated GFR 10 L Glucose 141 H POC Capillary Glucose 65 Lactic Acid 9.3 H* 7.6 H* Calcium 6.5 L Phosphorus 5.0 H Magnesium 1.4 L Total Bilirubin 2.5 H AST 1018 H ALT 447 H Alkaline Phosphatase 114 Total Protein 6.0 L Albumin 3.7 Random Vancomycin Blood Type O Positive 01/19/24 01/19/24 11:20 12:19 WBC RBC Hgb Hct MCV MCH MCHC RDW Plt Count MPV Immature Gran % (Auto) Neut % (Auto) Lymph % (Auto) Osborne % (Auto) Eos % (Auto) Baso % (Auto) Lymph # (Auto) Osborne # (Auto) Eos # (Auto) Baso # (Auto) Abs Immat Gran (auto) Absolute Neuts (auto) Absolute Nucleated RBC Neutrophils % (Manual) Band Neutrophils % Lymphocytes % (Manual) Monocytes % (Manual) Metamyelocytes % Nucleated RBC % Abs Neuts (Manual) Abs Lymphs (Manual) Abs Monocytes (Manual) Platelet Estimate % Immature Plt Fraction Schistocytes PT INR APTT Fibrinogen D-Dimer Puncture Site Artline ABG pH 7.557 H* ABG pCO2 25.4 L ABG pO2 79.0 L ABG PO2/FiO2 Ratio 2.63 ABG HCO3 22.1 ABG O2 Saturation 97.2 ABG O2 Content 12.3 L ABG Base Excess 0.4 A-a Gradient 105.1 Oxyhemoglobin 96.2 Carboxyhemoglobin Methemoglobin Reduced Hemoglobin Total Hemoglobin 9.0 L O2 Delivery Device Ventilator O2 Liters/Min Not Reportable Minute Volume Not Reportable Vent Rate 28 Vent Mode Cmv FiO2 30 Tidal Volume 400 PEEP 8 Peak Inspir Pressure Not Reportable Pressure Support Not Reportable Sodium Potassium Chloride Carbon Dioxide Anion Gap BUN Creatinine Estim Creat Clear Calc Estimated GFR Glucose POC Capillary Glucose 144 H Lactic Acid Calcium Phosphorus Magnesium Total Bilirubin AST ALT Alkaline Phosphatase Total Protein Albumin Random Vancomycin Blood Type Quality VTE Prophylaxis VTE prophylaxis: pharmacologic ordered
[2024-01-19] MEDS: SODIUM CHLORIDE 0.9% IV 1,000 ML 999 ML IV CONT (16:00)
--- NOTE | 2024-01-19 16:30 | P.PNNP_ITS ---
Progress Note: A&P Assessment and Plan (1) Acute kidney injury: Code(s): N17.9 - Acute kidney failure, unspecified Status: Acute Assessment and Plan: * due to ATN with multifactorial etiology: * hemodynamic instability/shock * infection/sepsis * BP medications prior to admission * diuretics prior to admission * obstructive uropathy * nephrolithiasis * s/p adequate fluid resuscitation * still requiring low dose vasopressor support (levophed) * given worsening creatinine, metabolic acidosis, and anuria -- initiated on [employer]/hemodialysis today * follow repeat labs and UOP for potential renal recovery (2) Septic shock: Code(s): A41.9 - Sepsis, unspecified organism; R65.21 - Severe sepsis with septic shock Status: Acute Assessment and Plan: * due to pyelonephritis in association with obstructing right UPJ stone * s/p IVF resuscitation and was requiring significant vasopressor support * weaned of vasopressin, juanis-synephrine and epinephrine * remains on low dose levophed gtt * s/p cystoscopy, right retrograde pyelogram, right ureteral stent placement on 01/16 * on bicarb infusion due to severe metabolic acidosis * follow culture data - results noted * on IV antibiotics (3) Acute respiratory failure: Code(s): J96.00 - Acute respiratory failure, unspecified whether with hypoxia or hypercapnia Status: Acute Assessment and Plan: * secondary to metabolic acidosis and severe septic shock * continue ventilator support * wean when more stable (4) Metabolic acidosis: Code(s): E87.20 - Acidosis, unspecified Status: Acute Assessment and Plan: * due to AMARIS/ARF and severelactic acidosis * s/p multiple doses of sodium bicarb IV pushes * currently on bicarb infusion * dialysis should help * follow trend of lactic acid (5) Pyelonephritis: Code(s): N12 - Tubulo-interstitial nephritis, not specified as acute or chronic Status: Acute Assessment and Plan: * as evidence by symptoms and imaging findings CT scan of the abdomen and pelvis with right UPJ stone with hydronephrosis and possible pyelonephritis given UA findings * on antibiotic therapy * s/p cystoscopy, right retrograde pyelogram, right ureteral stent placement on 01/16 (6) Right ureteral stone: Code(s): N20.1 - Calculus of ureter Status: Acute Assessment and Plan: * Urology following * see #4 (7) Shock liver: Code(s): K72.00 - Acute and subacute hepatic failure without coma Status: Acute Assessment and Plan: * due to severe sepsis and shock * follow trend of LFTs and INR (8) Thrombocytopenia: Code(s): D69.6 - Thrombocytopenia, unspecified Status: Acute Assessment and Plan: * likely related to septic shock * follow trend of platelets Will continue to follow. Subjective Date/time seen: 01/19/24 16:30 Interval history: Follow-up for acute kidney injury/acute renal failure. Seen earlier today and currently while on hemodialysis (seen on HD at 4:20PM); significant reduction in vasopressor requirements noted (just on levophed gtt currently); however, renal function continues to deteriorate with almost anuria noted; lactic acid remains elevated but trending down as well; noted coagulopathy and elevated LFTs by AM labs as well; remains on bicarbonate gtt. Exam Narrative: General: elderly female intubated/sedated and on mechanical ventilation Heart: normal S1 and S2; no rub Lungs: coarse breath sounds with bibasilar crackles Abdomen: soft, nontender, nondistended, positive bowel sounds Extremities: 1+ edema noted bilaterally Skin: purple discoloration in feet/toes/finger tips Objective Data Vital Signs Vital Signs: Vital Signs Temp Pulse Resp BP Pulse Ox O2 Del Method FiO2 01/19/24 16:30 79 135/67 01/19/24 16:15 79 131/67 01/19/24 16:00 78 22 H 01/19/24 14:00 81 22 H 01/19/24 12:00 72 22 H 01/19/24 10:00 76 28 H 01/19/24 08:00 88 28 H 01/19/24 16:00 78 22 H 01/19/24 14:00 81 22 H 01/19/24 12:00 72 22 H 01/19/24 10:00 76 28 H 01/19/24 08:00 88 22 H 01/19/24 16:00 77 136/68 01/19/24 14:00 81 127/67 01/19/24 10:00 76 113/65 01/19/24 08:00 88 116/62 01/19/24 16:00 98.8 F 79 22 H 133/67 91 01/19/24 16:00 78 01/19/24 16:00 80 136/71 01/19/24 15:54 98.6 F 79 22 H 142/75 H 01/19/24 15:54 30 01/19/24 12:00 79 22 H 99 Mechanical Ventilation 30 01/19/24 15:00 100.7 F H 76 20 107/41 L 99 01/19/24 14:00 100.6 F H 75 20 108/54 L 99 01/19/24 14:00 75 01/19/24 13:00 100.5 F H 77 20 111/51 L 99 01/19/24 12:00 30 01/19/24 12:00 100.2 F H 79 20 127/66 99 01/19/24 12:00 71 01/19/24 11:00 100 F H 76 20 125/50 L 99 01/19/24 14:36 71 94 Mechanical Ventilation 01/19/24 14:39 70 22 H 01/19/24 14:38 70 22 H 01/19/24 14:30 70 144/79 H 01/19/24 14:05 98.8 F 81 22 H 128/68 98 01/19/24 13:50 81 22 H 01/19/24 13:50 81 22 H 01/19/24 13:50 99.0 F 81 22 H 132/70 98 01/19/24 13:30 741 H 137/72 01/19/24 13:00 82 136/72 01/19/24 12:56 99.1 F 82 22 H 135/72 94 01/19/24 12:00 71 126/68 01/19/24 11:56 99.4 F 72 22 H 135/73 95 01/19/24 11:55 70 136/72 01/19/24 11:50 84 141/77 H 01/19/24 11:33 73 95 Mechanical Ventilation 01/19/24 11:45 85 140/77 01/19/24 11:41 99.4 F 85 22 H 141/78 H 95 01/19/24 10:00 99.5 F 74 28 H 122/66 94 01/19/24 10:00 76 01/19/24 10:48 93 Mechanical Ventilation 01/19/24 10:48 99.5 F 74 28 H 121/65 94 01/19/24 08:00 75 98 Mechanical Ventilation 40 01/19/24 09:00 99.5 F 75 28 H 120/65 01/19/24 08:00 87 01/19/24 08:00 99.4 F 88 28 H 112/60 96 01/19/24 08:00 40 01/19/24 07:00 99.4 F 75 28 H 115/61 92 01/19/24 10:30 99.6 F 76 28 H 109/58 L 92 01/19/24 09:56 76 96 Mechanical Ventilation 40 01/19/24 10:21 85 102/52 L 01/19/24 08:23 94 Mechanical Ventilation 40 01/19/24 07:59 87 96 Mechanical Ventilation 50 01/19/24 06:53 87 118/63 01/19/24 06:53 88 118/62 01/19/24 06:40 86 126/67 01/19/24 06:30 75 126/65 01/19/24 06:15 75 96 Mechanical Ventilation 50 01/19/24 06:00 100.0 F H 01/19/24 06:00 76 01/19/24 04:00 81 01/19/24 06:13 75 131/68 01/19/24 06:12 75 28 H 01/19/24 06:08 76 122/63 01/19/24 06:00 77 28 H 01/19/24 06:00 77 28 H 01/19/24 06:00 76 125/65 01/19/24 06:00 75 125/66 01/19/24 06:00 77 125/66 01/19/24 05:48 76 126/67 01/19/24 05:33 74 120/64 01/19/24 05:18 86 123/68 01/19/24 04:00 79 28 H 97 Mechanical Ventilation 50 01/19/24 05:00 100.1 F H 87 28 H 106/60 95 01/19/24 04:00 100.4 F H 79 28 H 133/75 96 01/19/24 04:00 50 01/19/24 04:00 79 28 H 01/19/24 04:00 79 28 H 01/19/24 04:00 79 133/75 01/19/24 04:00 79 133/75 01/19/24 04:20 79 124/65 01/19/24 04:10 79 139/80 01/19/24 03:50 92 150/87 H 01/19/24 03:40 78 127/69 01/19/24 03:30 79 133/71 01/19/24 03:00 100.4 F H 80 28 H 133/71 94 01/19/24 03:20 78 136/72 01/19/24 02:30 79 131/69 01/19/24 02:15 93 137/73 01/19/24 02:00 100.5 F H 93 28 H 139/73 94 01/19/24 02:00 93 01/19/24 02:07 93 139/73 01/19/24 02:00 93 28 H 01/19/24 02:00 93 28 H 01/19/24 02:00 93 137/73 01/19/24 02:00 93 139/73 01/19/24 02:00 93 139/73 01/19/24 01:47 81 94 Mechanical Ventilation 60 01/19/24 01:45 82 134/67 01/19/24 01:55 93 140/73 01/19/24 01:00 100.8 F H 83 28 H 140/70 94 01/19/24 00:00 100.9 F H 88 28 H 134/70 95 01/19/24 00:00 88 28 H 95 Mechanical Ventilation 60 01/19/24 00:00 60 01/19/24 00:00 91 01/19/24 00:35 89 136/71 01/19/24 00:30 89 137/72 01/19/24 00:19 90 136/71 01/19/24 00:00 88 28 H 01/19/24 00:00 88 28 H 01/19/24 00:00 88 134/70 01/19/24 00:00 88 134/70 01/19/24 00:00 88 134/70 01/19/24 00:00 88 134/70 01/19/24 01:30 83 139/69 01/19/24 01:10 84 134/66 01/18/24 23:57 91 134/71 01/18/24 23:42 94 128/29 L 01/18/24 23:00 100.7 F H 92 28 H 135/71 96 01/18/24 23:15 91 96 Mechanical Ventilation 60 01/18/24 23:19 90 140/73 01/18/24 22:57 92 135/71 01/18/24 22:30 90 135/70 01/18/24 22:00 100.5 F H 91 28 H 135/69 97 01/18/24 22:00 91 01/18/24 22:05 90 131/68 01/18/24 22:00 91 28 H 01/18/24 22:00 91 28 H 01/18/24 22:00 91 136/69 01/18/24 22:00 91 136/69 01/18/24 22:00 91 136/69 01/18/24 22:00 92 136/69 01/18/24 21:48 91 137/70 01/18/24 21:29 92 138/70 01/18/24 21:00 100.5 F H 91 28 H 133/67 97 01/18/24 20:00 91 01/18/24 21:05 91 135/70 01/18/24 21:00 90 28 H 01/18/24 20:45 91 128/65 01/18/24 20:25 90 98 Mechanical Ventilation 60 01/18/24 20:00 60 01/18/24 20:00 92 28 H 97 Mechanical Ventilation 60 01/18/24 20:00 100.5 F H 92 28 H 132/78 91 01/18/24 19:00 100.5 F H 91 28 H 122/63 96 01/18/24 20:15 91 130/66 01/18/24 20:00 92 28 H 01/18/24 20:00 92 28 H 01/18/24 20:00 92 132/78 01/18/24 20:00 92 132/78 01/18/24 20:00 92 132/78 01/18/24 20:00 92 132/78 01/18/24 19:55 92 132/68 01/18/24 19:40 93 132/68 01/18/24 19:25 92 135/69 01/18/24 19:15 91 116/60 01/18/24 19:14 91 116/60 01/18/24 18:33 95 108/59 L 01/18/24 18:00 100 31 H 01/18/24 18:00 95 111/58 L 01/18/24 18:00 95 111/58 L 01/18/24 18:00 95 110/58 L 01/18/24 18:00 94 01/18/24 18:00 101 H 32 H 01/18/24 18:19 96 109/57 L 01/18/24 18:18 96 109/57 L 01/18/24 18:00 100.3 F H 90 28 H 113/65 98 Intake/Output Intake/Output: Intake & Output 01/16/24 01/17/24 01/18/24 01/19/24 23:59 23:59 23:59 23:59 Intake Total 4514.6 6609.8 2823.0 Output Total 140 200 85 Balance 4374.6 6409.8 2738.0 Meds/Results Medications: Active Medications Generic Name Dose Route Start Last Admin Trade Name Freq PRN Reason Stop Dose Admin Atorvastatin Calcium 10 mg 01/18/24 09:00 Atorvastatin 10 Mg Tablet PO DAILY TANNA Dextrose 12.5 gm 01/19/24 00:44 01/19/24 01:08 Dextrose 50% 25 Gm/50 Ml Syringe IV PUSH 12.5 gm PRN PRN Administration Hypoglycemia Protocol Duloxetine HCl 120 mg 01/18/24 09:00 01/18/24 07:54 Duloxetine Hcl 60 Mg Capsule.Dr PO 120 mg DAILY TANNA Administration Empagliflozin 10 mg 01/18/24 09:00 Empagliflozin 10 Mg Tablet PO DAILY TANNA Epoetin Brent-epbx 10,000 units 01/19/24 20:00 Epoetin Brent-Epbx 10,000 Units/Ml Vial IV PUSH 01/19/24 20:01 ONCE ONE Glucagon 1 mg 01/19/24 00:44 Glucagon For Inj 1 Mg Vial IM PRN PRN Hypoglycemia Protocol Glucose 15 gm 01/19/24 00:44 Glucose Oral Gel 15 Gm Of Glucse In 37.5 Gm Tube PO PRN PRN Hypoglycemia Protocol Hydrocortisone Sodium Succinate 100 mg 01/17/24 22:00 01/19/24 12:58 Hydrocortisone Sodium Succinate 100 Mg/2 Ml Vial IV PUSH 100 mg Q8HR TANNA Administration Norepinephrine Bitartrate 8 mg in 250 mls @ 7.5 mls/hr 01/17/24 13:00 01/18 16:43 Levophed 8 Mg/D5w 250 Ml IV CONT 4 mcg/min .Q24H TANNA 7.5 mls/hr Titration Protocol 4 MCG/MIN Vasopressin 100 units/ 100 mls @ 0.6 mls/hr 01/17/24 15:15 01/19/24 06:08 Dextrose IV CONT Infused .Q72H TANNA Titration Protocol 0.01 UNITS/MIN Fentanyl Citrate 2,500 mcg in 250 mls @ 5 mls/hr 01/17/24 22:35 01/19/24 16:00 Fentanyl 2,500 Mcg/Ns 250 Ml IV CONT 50 mcg/hr .Q50H TANNA 5 mls/hr Titration Protocol 50 MCG/HR Midazolam HCl 100 mg in 100 mls @ 2 mls/hr 01/17/24 22:35 01/19/24 16:00 Versed 100 Mg/Ns 100 Ml IV CONT 2 mg/hr .Q50H TANNA 2 mls/hr Titration Protocol 2 MG/HR Dextrose 1,000 mls @ 100 mls/hr 01/19/24 00:44 Dextrose 5% 1,000 Ml IVPB PRN PRN Hypoglycemia Protocol Sodium Bicarbonate 150 meq/ 1,100 mls @ 100 mls/hr 01/19/24 10:00 01/19/24 10:22 Dextrose IV CONT 100 mls/hr .Q11H TANNA Administration Aztreonam 1 gm/ Sodium 50 mls @ 100 mls/hr 01/19/24 18:00 Chloride IVPB Q12H TANNA Albumin Human 50 mls @ 999 mls/hr 01/19/24 12:02 Albutein IVPB 02/18/24 12:01 Q10M PRN HYPOTENSION Multi-Ingred Cream/Lotion/Oil/Oint 1 applic 01/18/24 09:00 01/19/24 09:06 Mineral Oil/White Petrolatum Ointment EACH EYE 1 applic Q12HR TANNA Administration Nabumetone 750 mg 01/17/24 21:00 Nabumetone 750 Mg Tablet PO Q12HR TANNA Ondansetron HCl 4 mg 01/17/24 12:42 01/17/24 12:51 Ondansetron Inj 4 Mg/2 Ml Vial IV PUSH 4 mg Q4H PRN Administration Nausea Ondansetron HCl 4 mg 01/17/24 15:19 Ondansetron Hcl Odt 4 Mg Tablet PO Q6H PRN Nausea Oxycodone HCl 5 mg 01/17/24 15:19 Oxycodone Hcl (*Crx) 5 Mg Tab Ir PO Q6-8H PRN Pain (Scale Score 7-10) Pantoprazole Sodium 40 mg 01/18/24 09:00 01/18/24 07:51 Pantoprazole 40 Mg Tablet PO 40 mg DAILY TANNA Administration Pantoprazole Sodium 40 mg 01/19/24 09:00 01/19/24 09:06 Pantoprazole Sodium Iv 40 Mg Vial IV PUSH 40 mg Q12HR TANNA Administration Sodium Chloride 10 ml 01/17/24 22:00 01/19/24 12:58 Central Line Flush IV PUSH 10 ml Q8HR TANNA Administration Sodium Chloride 20 ml 01/17/24 16:51 Central Line Flush IV PUSH PRN PRN after blood draws Sumatriptan Succinate 50 mg 01/17/24 15:19 Sumatriptan Succinate 25 Mg Tablet PO Q8H PRN Headache Tamoxifen Citrate 20 mg 01/18/24 09:00 01/18/24 07:54 Tamoxifen Citrate (*Chemo) 10 Mg Tablet PO 20 mg DAILY TANNA Administration Vancomycin HCl 1 each 01/17/24 16:30 Vancomycin For Acute Kidney Injury IVPB PRN PRN Vancomycin Protocol Radiology Results: ITS Impressions Abdomen/Pelvis CT 01/17/24 10:23 IMPRESSION: 1. 11 mm stone at right ureteropelvic junction with mild right hydronephrosis. 2. 1 mm nonobstructing left kidney stone. 3. 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 Ureter Stent X-Ray 01/17/24 15:20 IMPRESSION: 1. Persistent stone at the right ureteropelvic junction with placement of a rig ht internal ureteral stent in expected position. Is unclear the stone has been removed on the final image and would correlate with procedure note for further detail. Renal Ultrasound 01/17/24 19:03 IMPRESSION: 1. 7.2 cm left renal cyst. Otherwise normal kidneys with no hydronephrosis. Abdomen X-Ray 01/17/24 23:21 IMPRESSION: 1. Endotracheal tube and nasogastric tube in expected positions as detailed above. 2. Unchanged mild elevation of the right hemidiaphragm with streaky atelectasis versus less likely pneumonia at the bilateral lower lung zones. Chest/Abdomen/Pelvis CT 01/19/24 09:48 IMPRESSION: 1. Patchy airspace opacities in right lung upper lobe, consistent with atelectasis versus pneumonia. 2. Small pleural effusions, right worse than left. 3. Small volume of ascites. 4. 8 mm stone in right renal pelvis with right internal ureteral stent in expected position. 5. 2 mm nonobstructing left kidney stone. Chest X-Ray 01/19/24 14:47 IMPRESSION: 1. Lines and tubes in expected positions as detailed above. 2. Opacities in the bilateral lower lungs and perihilar regions which could represent atelectasis, pneumonia, mild pulmonary edema or some combination are of. 2. Cardiomegaly. Labs Labs: Laboratory Tests 01/19/24 05:30 01/19/24 05:30 Lactic Acid 9.3 H* Calcium 6.5 L Phosphorus 5.0 H Magnesium 1.4 L Total Bilirubin 2.5 H AST 1018 H ALT 447 H Alkaline Phosphatase 114 Total Protein 6.0 L Albumin 3.7 Microbiology 01/17/24 10:36 Clean Catch Midstream Urine Culture - Final Klebsiella pneumoniae 01/17/24 16:12 Blood Blood Culture - Preliminary
[2024-01-19] MEDS: EPOETIN ALFA-EPBX 10,000 UNITS/ML VIAL 10000 UNITS IV PUSH (17:44)
[2024-01-19 18:13] LABS: Hematocrit 24.5 % (37.0-47.0); Hemoglobin 8.5 g/dL (12.0-15.0); Immature Platelet Fraction Pct 9.6 % (0.9-11.2); Mean Corpuscular HGB Conc 34.7 g/dl (32-36); Mean Corpuscular Hemoglobin 32.7 pg (26-34); Mean Corpuscular Volume 94.2 fl (80-100); Mean Platelet Volume 11.2 fl (7.4-10.4); Platelet Count Result 126 k/mm3 (150-375); Red Cell Distribution Width 14.2 % (11.5-14.5); White Blood Count 31.8 K/mm3 (4.5-10.0)
[2024-01-19 18:31] LABS: Lactic Acid Reflex 4.4 mmol/L (0.7-2.0)
[2024-01-19 18:36] LABS: Eosinophil Urine None Seen % (None Seen); Urine Eos QC 2nd Tech Confirmed
[2024-01-19 18:39] LABS: Glucose Point of Care 110 mg/dl (65-105)
[2024-01-19 18:57] LABS: Creatinine Urine 68.4 mg/dL
[2024-01-19 19:02] LABS: Vancomycin Random 19.1 ug/mL (10-20)
[2024-01-19 19:34] LABS: Hepatitis B Surface Antigen Negative (Negative)
[2024-01-19 19:43] LABS: Total Protein Urine Random 595 mg/dL
[2024-01-19 19:44] LABS: Total Protein Urine Random > 600 mg/dL
[2024-01-19 19:46] LABS: Ur Ttl Prot Creatinine Ratio > 8.77 mg/mg (0-0.20); Urea Random Urine < 67 MG/DL
[2024-01-19 19:51] LABS: Hepatitis B Surface Anti Res Negative
[2024-01-19 21:08] LABS: Reflex Lactic Acid Yes or No Add Lactic
[2024-01-19 21:13] LABS: INR 1.7; Prothrombin Time 20.2 Seconds (11.1-14.7)
[2024-01-19 21:42] LABS: Lactic Acid 5.2 mmol/L (0.7-2.0)
[2024-01-19 21:57] LABS: Glucose Point of Care 106 mg/dl (65-105)
[2024-01-20] VITALS (47 sets, daily range): BP systolic 91–163; BP diastolic 49–99; PULSE 70–87; RESP 18–88; TEMP 37–37.8; O2SAT 92–98
[2024-01-20] MEDS: MIDAZOLAM 100MG/NS 100ML(*CRX) 100 MG/100 ML BAG IV CONT (00:14)
[2024-01-20 01:03] LABS: Glucose Point of Care 146 mg/dl (65-105)
[2024-01-20] MEDS: CENTRAL LINE FLUSH 10 ML IV PUSH ×3 (06:11→20:27)
[2024-01-20] MEDS: AZTREONAM 1 GM in SODIUM CHLORIDE 0.9% IV 50 ML 100 ML IVPB ×2 (06:11→17:06)
[2024-01-20] MEDS: HYDROCORTISONE SODIUM SUCCINATE 100 MG/2 ML VIAL IV PUSH ×2 (06:11→09:07)
[2024-01-20 06:15] LABS: Base Excess ABG 1.5 mEq/l (+/-2.0); Carboxyhemoglobin 0.3 % THb (0-2.0); Fractional Inspired Oxygen 40 %; HCO3 ABG 22.9 mEq/l (22.0-26.0); Methemoglobin ABG 0.1 %THb (0-1.5); Oxygen Saturation ABG 97.3 % (95.0-100.0); Oxyhemoglobin 95.7 % THb (90.0-100.0); PCO2 ABG 24.4 mmHg (35.0-45.0); PO2 ABG 78.1 mmHg (80.0-100.0); PO2 FiO2 Ratio Arterial Blood 1.95 %; Reduced Hemoglobin 3.9 %THb (0-5.0); Total Hemoglobin 8.1 g/dL (12.0-18.0)
[2024-01-20 06:17] LABS: Device VENTILATOR; Site Drawn ARTLINE
[2024-01-20 06:18] LABS: Arterial Blood Gas PEEP 8 cmH2O; Arterial Blood Gas Tidal Volume 400 ml; Arterial Blood Gas Vent Mode CMV; Arterial Blood Gas Ventilator rate 22 /MIN
[2024-01-20 06:33] LABS: Glucose Point of Care 159 mg/dl (65-105)
[2024-01-20 06:53] LABS: Alanine Aminotransferase 360 U/L (6-35); Alkaline Phosphatase 162 U/L (38-126); Anion Gap 12 mmol/L (4-12); Aspartate Amino Transferase 483 U/L (14-36); Bilirubin,Total 2.9 mg/dL (0.2-1.3); Blood Urea Nitrogen 32 mg/dL (7-17); Carbon Dioxide 35 mmol/L (22-30); Chloride 86 mmol/L (98-107); Estimated CRCL calculation 19 ml/min; Estimated Glomerular Filt Rate 16; Glucose 162 mg/dL (65-110); Magnesium 1.8 mg/dL (1.6-2.3); Phosphorus 2.5 mg/dL (2.5-4.5); Potassium 3.6 mmol/L (3.4-5.0); Sodium 133 mmol/L (137-145)
[2024-01-20 06:58] LABS: Hematocrit 25.4 % (37.0-47.0); Hemoglobin 8.7 g/dL (12.0-15.0); Mean Corpuscular HGB Conc 34.3 g/dl (32-36); Mean Corpuscular Hemoglobin 32.8 pg (26-34); Mean Corpuscular Volume 95.8 fl (80-100); Platelet Count Result 86 k/mm3 (150-375); Red Blood Count 2.65 M/mm3 (4.2-5.4); Red Cell Distribution Width 14.5 % (11.5-14.5); White Blood Count 29.7 K/mm3 (4.5-10.0)
[2024-01-20 07:00] LABS: Lactic Acid Reflex 4.6 mmol/L (0.7-2.0)
[2024-01-20 07:13] LABS: INR 1.5; Prothrombin Time 18.8 Seconds (11.1-14.7)
[2024-01-20 07:14] LABS: Partial Thromboplastin Time 26.6 Seconds (22.3-36.8)
[2024-01-20 07:59] LABS: Glucose Point of Care 96 mg/dl (65-105)
[2024-01-20] MEDS: MINERAL OIL/WHITE PETROLATUM OINTMENT 1 APPLIC EACH EYE ×2 (08:12→20:26)
[2024-01-20] MEDS: SODIUM BICARBONATE 8.4% 150 MEQ in DEXTROSE 5% 1,000 ML 950 ML 100 MEQ IV CONT (08:12)
[2024-01-20] MEDS: PANTOPRAZOLE SODIUM IV 40 MG VIAL IV PUSH ×2 (08:12→20:26)
--- NOTE | 2024-01-20 08:41 | P.PNINT_ITS ---
Progress Note: A&P Assessment and Plan (1) Septic shock: Code(s): A41.9 - Sepsis, unspecified organism; R65.21 - Severe sepsis with septic shock Status: Acute Assessment and Plan: Septic shock likely related to pyelonephritis -right UPJ stone with hydronephrosis status post stent placement, also has evidence of pneumonia on the CT scan -01/16: Status post cystoscopy, right retrograde pyelogram, right ureteral stent placement 6 Citizen Of [place] contour -anesthesia placed central line and art line in the OR Patient has received significant IV fluids and now currently off -vasopressors have been weaned off -will decrease hydrocortisone to q.day and eventually wean it off -discontinue bicarb infusion for now -patient has multiple allergies and was started on aztreonam and vancomycin (01/16) patient did get 1 dose of ciprofloxacin in the ER -01/16: Urine cultures growing Klebsiella which is not pansensitive 01/16: Blood cultures pending Will discuss with pharmacy regarding switching antibiotics today (2) Acute respiratory failure: Code(s): J96.00 - Acute respiratory failure, unspecified whether with hypoxia or hypercapnia Status: Acute Assessment and Plan: Acute respiratory failure likely related to metabolic acidosis, severe septic shock, pneumonia -01/17/2024: Patient was intubated -chest x-ray reviewed advance ET tube by 2 cm -ABG reviewed. Continue CMV mode of ventilation, peep of 5, 40% FiO2. Decrease rate to 18 -sedated with fentanyl and Versed infusion, maintain RASS of -2 (3) Pyelonephritis: Code(s): N12 - Tubulo-interstitial nephritis, not specified as acute or chronic Status: Acute Assessment and Plan: Patient presented with generalized weakness and diffuse abdominal pain, CT scan of the abdomen and pelvis showed right UPJ stone with hydronephrosis and possible pyelonephritis since UA revealed UTI -continue antibiotics as above -01/16: Status post cystoscopy, right retrograde pyelogram, right ureteral stent placement 6 Citizen Of [place] contour (4) Acute kidney injury: Code(s): N17.9 - Acute kidney failure, unspecified Status: Acute Assessment and Plan: Patient with acute kidney injury likely related to septic shock, ATN, hypotension, pyelonephritis. Patient on furosemide, spironolactone and atenolol at home. 01/18 dialysis initiated Continue dialysis as per Nephrology Discontinue bicarb fluids Monitor urine output electrolytes and creatinine (5) Right ureteral stone: Code(s): N20.1 - Calculus of ureter Status: Acute Assessment and Plan: 01/16: Status post cystoscopy, right retrograde pyelogram, right ureteral stent placement 6 Citizen Of [place] contour -urology following (6) Metabolic acidosis: Code(s): E87.20 - Acidosis, unspecified Status: Acute Assessment and Plan: IMPROVING with dialysis Will discontinue sodium bicarb infusion (7) Shock liver: Code(s): K72.00 - Acute and subacute hepatic failure without coma Status: Acute Assessment and Plan: Shock liver likely related to severe septic shock, hypotension, along with coagulopathy. INR 2.6. Fibrinogen levels within normal limits 01/18 patient was transfused FFP Monitor INR. Hold anticoagulation (8) Thrombocytopenia: Code(s): D69.6 - Thrombocytopenia, unspecified Status: Acute Assessment and Plan: Thrombocytopenia likely related to septic shock 01/18 Patient was transfused 2 units of platelets since after place a dialysis catheter Monitor (9) Ischemic bowel disease: Code(s): K55.9 - Vascular disorder of intestine, unspecified Status: Acute Assessment and Plan: Patient had persistently high lactic acid level secondary to septic shock and there was concern for ischemic bowel although no obvious necrosis was seen on the CT scan. Patient now clinically improved although lactic acid has not normalized yet. On exam patient not any bowel sounds and does suggest ileus Check KUB Will start trickle tube feed and monitor closely. Will discuss with General surgery (10) Ileus: Code(s): K56.7 - Ileus, unspecified Status: Acute Assessment and Plan: See above (11) Electrolyte abnormality: Code(s): E87.8 - Other disorders of electrolyte and fluid balance, not elsewhere classified Status: Acute Assessment and Plan: Replace low calcium Plan DVT prophylaxis: Lovenox on hold, SCDs Stress ulcer prophylaxis: Protonix IV q.12 hours Nutrition: Will start trickle tube feeds today Code Status: DNR Critical Care Time Spent: 33 minutes Discussed with patient's , son and niece updated them with patient's condition and plan of care. I answered all questions Due to a high probability of clinically significant, life threatening deterioration, the patient required my highest level of preparedness to intervene emergently and I personally spent this critical care time directly and personally managing the patient. This critical care time included obtaining a history; examining the patient; pulse oximetry; ordering and review of studies; arranging urgent treatment with development of a management plan; evaluation of patient's response to treatment; frequent reassessment; and discussions with other providers. It was exclusive of separately billable procedures and treating other patients and teaching time. Please see Assessment and Plan section and the rest of the note for further information on patient assessment and treatment This dictation may have been done utilizing a voice recognition system. Attempts have been made to correct errors. However, there may be uncorrected grammatical, spelling, and recognitions errors present. Subjective Date/time seen: 01/20/24 Overnight events reviewed. Afebrile Continues to be on mechanical ventilation 40% FiO2 Off Levophed Continues to be sedated with Versed and fentanyl On bicarb drip Poor urine output Patient was dialyzed yesterday and 1 L fluid was removed. Interval history: Reason for consult: Septic shock, pyelonephritis, kidney stones, hydronephrosis, shock liver, acute respiratory failure, thrombocytopenia Review of Systems Review of Systems: ROS unobtainable: Yes unobtainable due to endotracheal tube, unobtainable due to medical condition and unobtainable due to mental status Exam Narrative: General: Intubated and sedated HEENT:? Pupils are equal and reactive, sclera is clear. ETT in place Neck:? Supple Respiratory:? Coarse breath with crackles bilaterally, and wheezing, adequate air entry Cardiac:? S1-S2 is normal, tachycardia Abdomen:? Soft, nontender, nondistended, protuberant, absent bowel sounds Extremities:? Bilateral lower extremity edema, palpable but weak bilateral dorsalis pedis pedal pulses, feet are cold Neuro:? Patient intubated, sedated, does not open her eyes or follow simple commands Skin:? Purple discoloration of fingers of bilateral hands, bilateral feet discoloration Psych:? Unable to assess Objective Data Vital Signs Vital Signs: Vital Signs - 24 hr 01/19/24 10:21 01/19/24 09:56 01/19/24 10:30 Temperature 37.6 C Pulse Rate 85 76 76 Respiratory Rate 28 H Blood Pressure 102/52 L 109/58 L Pulse Oximetry 96 92 Oxygen Delivery Mechanical Ventilation Fraction of Inspired Oxygen 40 01/19/24 09:00 01/19/24 10:48 01/19/24 10:48 Temperature 37.5 C 37.5 C Pulse Rate 75 74 Respiratory Rate 28 H 28 H Blood Pressure 120/65 121/65 Pulse Oximetry 94 93 Oxygen Delivery Mechanical Ventilation Fraction of Inspired Oxygen 30 01/19/24 10:00 01/19/24 10:00 01/19/24 11:41 Temperature 37.5 C 37.4 C Pulse Rate 76 74 85 Respiratory Rate 28 H 22 H Blood Pressure 122/66 141/78 H Pulse Oximetry 94 95 Oxygen Delivery Fraction of Inspired Oxygen 01/19/24 11:45 01/19/24 11:33 01/19/24 11:50 Temperature Pulse Rate 85 73 84 Respiratory Rate Blood Pressure 140/77 141/77 H Pulse Oximetry 95 Oxygen Delivery Mechanical Ventilation Fraction of Inspired Oxygen 30 01/19/24 11:55 01/19/24 11:56 01/19/24 12:00 Temperature 37.4 C Pulse Rate 70 72 71 Respiratory Rate 22 H Blood Pressure 136/72 135/73 126/68 Pulse Oximetry 95 Oxygen Delivery Fraction of Inspired Oxygen 01/19/24 12:56 01/19/24 13:00 01/19/24 13:30 Temperature 37.3 C Pulse Rate 82 82 741 H Respiratory Rate 22 H Blood Pressure 135/72 136/72 137/72 Pulse Oximetry 94 Oxygen Delivery Fraction of Inspired Oxygen 01/19/24 13:50 01/19/24 13:50 01/19/24 13:50 Temperature 37.2 C Pulse Rate 81 81 81 Respiratory Rate 22 H 22 H 22 H Blood Pressure 132/70 Pulse Oximetry 98 Oxygen Delivery Fraction of Inspired Oxygen 01/19/24 14:05 01/19/24 14:30 01/19/24 14:38 Temperature 37.1 C Pulse Rate 81 70 70 Respiratory Rate 22 H 22 H Blood Pressure 128/68 144/79 H Pulse Oximetry 98 Oxygen Delivery Fraction of Inspired Oxygen 01/19/24 14:39 01/19/24 14:36 01/19/24 11:00 Temperature 37.7 C H Pulse Rate 70 71 76 Respiratory Rate 22 H 20 Blood Pressure 125/50 L Pulse Oximetry 94 99 Oxygen Delivery Mechanical Ventilation Fraction of Inspired Oxygen 30 01/19/24 12:00 01/19/24 12:00 01/19/24 12:00 Temperature 37.9 C H Pulse Rate 71 79 Respiratory Rate 20 Blood Pressure 127/66 Pulse Oximetry 99 Oxygen Delivery Fraction of Inspired Oxygen 30 01/19/24 13:00 01/19/24 14:00 01/19/24 14:00 Temperature 38.1 C H 38.1 C H Pulse Rate 77 75 75 Respiratory Rate 20 20 Blood Pressure 111/51 L 108/54 L Pulse Oximetry 99 99 Oxygen Delivery Fraction of Inspired Oxygen 01/19/24 15:00 01/19/24 12:00 01/19/24 15:54 Temperature 38.2 C H Pulse Rate 76 79 Respiratory Rate 20 22 H Blood Pressure 107/41 L Pulse Oximetry 99 99 Oxygen Delivery Mechanical Ventilation Fraction of Inspired Oxygen 30 30 01/19/24 15:54 01/19/24 16:00 01/19/24 16:00 Temperature 37.0 C Pulse Rate 79 80 78 Respiratory Rate 22 H Blood Pressure 142/75 H 136/71 Pulse Oximetry Oxygen Delivery Fraction of Inspired Oxygen 01/19/24 16:00 01/19/24 10:00 01/19/24 14:00 Temperature 37.1 C Pulse Rate 79 76 81 Respiratory Rate 22 H Blood Pressure 133/67 113/65 127/67 Pulse Oximetry 91 Oxygen Delivery Fraction of Inspired Oxygen 01/19/24 16:00 01/19/24 10:00 01/19/24 12:00 Temperature Pulse Rate 77 76 72 Respiratory Rate 28 H 22 H Blood Pressure 136/68 Pulse Oximetry Oxygen Delivery Fraction of Inspired Oxygen 01/19/24 14:00 01/19/24 16:00 01/19/24 10:00 Temperature Pulse Rate 81 78 76 Respiratory Rate 22 H 22 H 28 H Blood Pressure Pulse Oximetry Oxygen Delivery Fraction of Inspired Oxygen 01/19/24 12:00 01/19/24 14:00 01/19/24 16:00 Temperature Pulse Rate 72 81 78 Respiratory Rate 22 H 22 H 22 H Blood Pressure Pulse Oximetry Oxygen Delivery Fraction of Inspired Oxygen 01/19/24 16:15 01/19/24 16:43 01/19/24 16:30 Temperature Pulse Rate 79 78 79 Respiratory Rate Blood Pressure 131/67 135/66 135/67 Pulse Oximetry Oxygen Delivery Fraction of Inspired Oxygen 01/19/24 17:00 01/19/24 16:45 01/19/24 17:15 Temperature Pulse Rate 78 78 78 Respiratory Rate Blood Pressure 135/64 134/65 138/65 Pulse Oximetry Oxygen Delivery Fraction of Inspired Oxygen 01/19/24 17:30 01/19/24 17:45 01/19/24 16:58 Temperature Pulse Rate 78 68 79 Respiratory Rate Blood Pressure 138/67 135/61 Pulse Oximetry 92 Oxygen Delivery Mechanical Ventilation Fraction of Inspired Oxygen 30 01/19/24 18:00 01/19/24 18:10 01/19/24 18:15 Temperature Pulse Rate 76 77 76 Respiratory Rate Blood Pressure 139/63 139/64 132/62 Pulse Oximetry Oxygen Delivery Fraction of Inspired Oxygen 01/19/24 17:00 01/19/24 18:00 01/19/24 18:00 Temperature 37.1 C 37.1 C Pulse Rate 76 75 74 Respiratory Rate 22 H 22 H Blood Pressure 124/54 L 125/52 L Pulse Oximetry 91 90 Oxygen Delivery Fraction of Inspired Oxygen 01/19/24 18:30 01/19/24 18:00 01/19/24 18:00 Temperature Pulse Rate 75 74 74 Respiratory Rate 22 H 22 H Blood Pressure 125/54 L Pulse Oximetry Oxygen Delivery Fraction of Inspired Oxygen 01/19/24 16:00 01/19/24 16:00 01/19/24 18:00 Temperature Pulse Rate 79 76 Respiratory Rate 22 H Blood Pressure 138/63 Pulse Oximetry 93 Oxygen Delivery Mechanical Ventilation Fraction of Inspired Oxygen 30 30 01/19/24 19:09 01/19/24 18:15 01/19/24 18:30 Temperature 37.1 C Pulse Rate 74 77 76 Respiratory Rate 22 H Blood Pressure 130/58 L 134/60 127/55 L Pulse Oximetry Oxygen Delivery Fraction of Inspired Oxygen 01/19/24 18:45 01/19/24 19:00 01/19/24 20:27 Temperature Pulse Rate 75 75 75 Respiratory Rate Blood Pressure 124/54 L 123/55 L Pulse Oximetry 95 Oxygen Delivery Mechanical Ventilation Fraction of Inspired Oxygen 30 01/19/24 20:00 01/19/24 20:00 01/19/24 20:00 Temperature Pulse Rate 78 78 78 Respiratory Rate 22 H Blood Pressure 138/63 138/63 Pulse Oximetry Oxygen Delivery Fraction of Inspired Oxygen 01/19/24 20:00 01/19/24 19:00 01/19/24 20:00 Temperature 37.1 C 36.9 C Pulse Rate 78 74 78 Respiratory Rate 22 H 22 H 22 H Blood Pressure 124/53 L 138/63 Pulse Oximetry 90 93 Oxygen Delivery Fraction of Inspired Oxygen 01/19/24 20:00 01/19/24 20:00 01/19/24 20:00 Temperature Pulse Rate 79 78 Respiratory Rate 22 H Blood Pressure Pulse Oximetry 93 Oxygen Delivery Mechanical Ventilation Fraction of Inspired Oxygen 30 30 01/19/24 21:00 01/19/24 22:00 01/19/24 22:00 Temperature 36.9 C 37.0 C Pulse Rate 74 79 79 Respiratory Rate 22 H 22 H Blood Pressure 140/61 138/62 Pulse Oximetry 93 94 Oxygen Delivery Fraction of Inspired Oxygen 01/19/24 23:26 01/20/24 00:14 01/20/24 00:14 Temperature Pulse Rate 80 83 83 Respiratory Rate 22 H 88 H Blood Pressure Pulse Oximetry 93 Oxygen Delivery Mechanical Ventilation Fraction of Inspired Oxygen 40 01/20/24 00:00 01/20/24 00:00 01/20/24 00:00 Temperature Pulse Rate 80 82 Respiratory Rate 22 H Blood Pressure Pulse Oximetry 94 Oxygen Delivery Mechanical Ventilation Fraction of Inspired Oxygen 30 30 01/19/24 23:00 01/20/24 00:00 01/20/24 01:00 Temperature 37.1 C 37.2 C 37.3 C Pulse Rate 82 82 81 Respiratory Rate 22 H 22 H 22 H Blood Pressure 144/66 H 163/72 H 119/96 H Pulse Oximetry 90 94 94 Oxygen Delivery Fraction of Inspired Oxygen 01/19/24 22:00 01/20/24 00:00 01/19/24 22:00 Temperature Pulse Rate 79 82 79 Respiratory Rate 22 H Blood Pressure 138/62 163/72 H Pulse Oximetry Oxygen Delivery Fraction of Inspired Oxygen 01/20/24 00:00 01/19/24 22:00 01/20/24 00:00 Temperature Pulse Rate 82 79 82 Respiratory Rate 22 H 22 H 22 H Blood Pressure Pulse Oximetry Oxygen Delivery Fraction of Inspired Oxygen 01/20/24 02:00 01/20/24 02:00 01/20/24 04:00 Temperature Pulse Rate 83 83 85 Respiratory Rate Blood Pressure 134/87 159/86 H Pulse Oximetry Oxygen Delivery Fraction of Inspired Oxygen 01/20/24 02:00 01/20/24 04:00 01/20/24 02:00 Temperature Pulse Rate 83 85 83 Respiratory Rate 22 H 22 H 22 H Blood Pressure Pulse Oximetry Oxygen Delivery Fraction of Inspired Oxygen 01/20/24 04:00 01/20/24 02:00 01/20/24 04:00 Temperature 37.4 C Pulse Rate 85 83 Respiratory Rate 22 H 22 H Blood Pressure 134/87 Pulse Oximetry 93 Oxygen Delivery Fraction of Inspired Oxygen 40 01/20/24 04:00 01/20/24 05:00 01/20/24 04:00 Temperature 37.7 C H Pulse Rate 85 84 87 Respiratory Rate 22 H 22 H Blood Pressure 144/79 H Pulse Oximetry 93 94 Oxygen Delivery Mechanical Ventilation Fraction of Inspired Oxygen 40 01/20/24 03:00 01/20/24 04:00 01/20/24 05:17 Temperature 37.6 C H 37.7 C H Pulse Rate 85 85 85 Respiratory Rate 22 H 22 H Blood Pressure 153/82 H 159/86 H Pulse Oximetry 93 93 93 Oxygen Delivery Mechanical Ventilation Fraction of Inspired Oxygen 40 01/20/24 02:30 01/20/24 06:00 01/20/24 06:00 Temperature 37.7 C H Pulse Rate 84 85 85 Respiratory Rate 22 H Blood Pressure 120/99 H Pulse Oximetry 96 92 Oxygen Delivery Mechanical Ventilation Fraction of Inspired Oxygen 40 01/20/24 06:00 01/20/24 06:00 01/20/24 06:00 Temperature Pulse Rate 85 85 85 Respiratory Rate 22 H 22 H Blood Pressure 120/99 H Pulse Oximetry Oxygen Delivery Fraction of Inspired Oxygen 01/20/24 07:00 01/20/24 08:00 01/20/24 08:00 Temperature 37.5 C Pulse Rate 76 81 83 Respiratory Rate 20 22 H Blood Pressure 91/49 L 153/88 H Pulse Oximetry 94 Oxygen Delivery Fraction of Inspired Oxygen 01/20/24 08:00 01/20/24 08:00 Temperature 37.3 C Pulse Rate 83 81 Respiratory Rate 22 H 22 H Blood Pressure 153/88 H Pulse Oximetry 94 Oxygen Delivery Fraction of Inspired Oxygen Intake/Output Intake/Output: Intake & Output 01/17/24 01/18/24 01/19/24 01/20/24 23:59 23:59 23:59 23:59 Intake Total 4514.6 6609.8 5378.0 1140.0 Output Total 675 993 8080 125 Balance 4374.6 6409.8 4243.0 1015.0 Meds/Results Medications: Active Medications Generic Name Dose Route Start Last Admin Trade Name Freq PRN Reason Stop Dose Admin Dextrose 12.5 gm 01/20/24 08:35 Dextrose 50% 25 Gm/50 Ml Syringe IV PUSH PRN PRN Hypoglycemia Protocol Epoetin Brent-epbx 10,000 units 01/20/24 20:00 Epoetin Brent-Epbx 10,000 Units/Ml Vial IV PUSH 01/20/24 20:01 ONCE ONE Glucagon 1 mg 01/20/24 08:35 Glucagon For Inj 1 Mg Vial IM PRN PRN Hypoglycemia Protocol Glucose 15 gm 01/20/24 08:35 Glucose Oral Gel 15 Gm Of Glucse In 37.5 Gm Tube PO PRN PRN Hypoglycemia Protocol Hydrocortisone Sodium Succinate 100 mg 01/20/24 09:00 Hydrocortisone Sodium Succinate 100 Mg/2 Ml Vial IV PUSH QAM TANNA Norepinephrine Bitartrate 8 mg in 250 mls @ 0 mls/hr 01/17/24 13:00 01/20/24 08:18 Levophed 8 Mg/D5w 250 Ml IV CONT Not Given .Q0M TANNA Protocol 0 MCG/MIN Fentanyl Citrate 2,500 mcg in 250 mls @ 5 mls/hr 01/17/24 22:35 01/20/24 08:00 Fentanyl 2,500 Mcg/Ns 250 Ml IV CONT 50 mcg/hr .Q50H TANNA 5 mls/hr Titration Protocol 50 MCG/HR Midazolam HCl 100 mg in 100 mls @ 2 mls/hr 01/17/24 22:35 01/20/24 08:00 Versed 100 Mg/Ns 100 Ml IV CONT 2 mg/hr .Q50H TANNA 2 mls/hr Titration Protocol 2 MG/HR Aztreonam 1 gm/ Sodium 50 mls @ 100 mls/hr 01/19/24 18:00 01/20/24 06:41 Chloride IVPB Infused Q12H TANNA Infusion Albumin Human 50 mls @ 999 mls/hr 01/19/24 12:02 Albutein IVPB 02/18/24 12:01 Q10M PRN HYPOTENSION Calcium Gluconate 2,000 mg in 100 mls @ 100 mls/hr 01/20/24 08:15 Calcium Gluc 2,000 Mg/Ns 100ml IVPB 01/20/24 09:14 ONCE ONE Dextrose 1,000 mls @ 100 mls/hr 01/20/24 08:35 Dextrose 5% 1,000 Ml IVPB PRN PRN Hypoglycemia Protocol Insulin Aspart 2 - 5 units 01/20/24 08:35 Insulin Aspart (*Bkc) 100 Units/Ml SUB-Q Q4H [facility] Protocol Multi-Ingred Cream/Lotion/Oil/Oint 1 applic 01/18/24 09:00 01/20/24 08:12 Mineral Oil/White Petrolatum Ointment EACH EYE 1 applic Q12HR TANNA Administration Nabumetone 750 mg 01/17/24 21:00 Nabumetone 750 Mg Tablet PO Q12HR TANNA Ondansetron HCl 4 mg 01/17/24 12:42 01/17/24 12:51 Ondansetron Inj 4 Mg/2 Ml Vial IV PUSH 4 mg Q4H PRN Administration Nausea Pantoprazole Sodium 40 mg 01/19/24 09:00 01/20/24 08:12 Pantoprazole Sodium Iv 40 Mg Vial IV PUSH 40 mg Q12HR TANNA Administration Sodium Chloride 10 ml 01/17/24 22:00 01/20/24 06:11 Central Line Flush IV PUSH 10 ml Q8HR TANNA Administration Sodium Chloride 20 ml 01/17/24 16:51 Central Line Flush IV PUSH PRN PRN after blood draws Tolnaftate 1 applic 01/20/24 09:00 Tolnaftate 1% Powder 45 Gm Btl TOPICAL Q12HR TANNA Vancomycin HCl 1 each 01/19/24 21:33 Vancomycin For Hemodialysis IVPB PRN PRN Vancomycin Protocol Radiology Results: ITS Impressions Abdomen/Pelvis CT 01/17/24 10:23 IMPRESSION: 1. 11 mm stone at right ureteropelvic junction with mild right hydronephrosis. 2. 1 mm nonobstructing left kidney stone. 3. 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 Ureter Stent X-Ray 01/17/24 15:20 IMPRESSION: 1. Persistent stone at the right ureteropelvic junction with placement of a right internal ureteral stent in expected position. Is unclear the stone has been removed on the final image and would correlate with procedure note for further detail. Renal Ultrasound 01/17/24 19:03 IMPRESSION: 1. 7.2 cm left renal cyst. Otherwise normal kidneys with no hydronephrosis. Abdomen X-Ray 01/17/24 23:21 IMPRESSION: 1. Endotracheal tube and nasogastric tube in expected positions as detailed abov e. 2. Unchanged mild elevation of the right hemidiaphragm with streaky atelectasis versus less likely pneumonia at the bilateral lower lung zones. Chest/Abdomen/Pelvis CT 01/19/24 09:48 IMPRESSION: 1. Patchy airspace opacities in right lung upper lobe, consistent with atelectasis versus pneumonia. 2. Small pleural effusions, right worse than left. 3. Small volume of ascites. 4. 8 mm stone in right renal pelvis with right internal ureteral stent in expected position. 5. 2 mm nonobstructing left kidney stone. Chest X-Ray 01/20/24 06:12 IMPRESSION: 1. Stable airspace opacities in the lower lung zones, consistent with atelectasis versus pneumonia. 2. Small pleural effusions. 3. Cardiomegaly. Labs Labs: Laboratory Results - last 24 hr 01/19/24 01/19/24 01/19/24 08:56 09:05 11:20 WBC RBC Hgb Hct MCV MCH MCHC RDW Plt Count MPV % Immature Plt Fraction PT INR APTT Puncture Site Artline ABG pH 7.557 H* ABG pCO2 25.4 L ABG pO2 79.0 L ABG PO2/FiO2 Ratio 2.63 ABG HCO3 22.1 ABG O2 Saturation 97.2 ABG O2 Content 12.3 L ABG Base Excess 0.4 A-a Gradient 105.1 Oxyhemoglobin 96.2 Carboxyhemoglobin Methemoglobin Reduced Hemoglobin Total Hemoglobin 9.0 L O2 Delivery Device Ventilator O2 Liters/Min Not Reportable Minute Volume Not Reportable Vent Rate 28 Vent Mode Cmv FiO2 30 Tidal Volume 400 PEEP 8 Peak Inspir Pressure Not Reportable Pressure Support Not Reportable Sodium Potassium Chloride Carbon Dioxide Anion Gap BUN Creatinine Estim Creat Clear Calc Estimated GFR Glucose POC Capillary Glucose 65 Lactic Acid 7.6 H* Calcium Phosphorus Magnesium Total Bilirubin AST ALT Alkaline Phosphatase Total Protein Albumin Urine Eosinophils U Random Total Protein Ur Random Urea Urine Total Volume Urine Creatinine Protein/Creat Ratio 2 Random Vancomycin Hep Bs Antigen Hep Bs Antibody Blood Type O Positive 01/19/24 01/19/24 01/19/24 12:19 18:02 18:03 WBC 31.8 H RBC 2.60 L Hgb 8.5 L Hct 24.5 L MCV 94.2 MCH 32.7 MCHC 34.7 RDW 14.2 Plt Count 126 L D MPV 11.2 H % Immature Plt Fraction 9.6 PT INR APTT Puncture Site ABG pH ABG pCO2 ABG pO2 ABG PO2/FiO2 Ratio ABG HCO3 ABG O2 Saturation ABG O2 Content ABG Base Excess A-a Gradient Oxyhemoglobin Carboxyhemoglobin Methemoglobin Reduced Hemoglobin Total Hemoglobin O2 Delivery Device O2 Liters/Min Minute Volume Vent Rate Vent Mode FiO2 Tidal Volume PEEP Peak Inspir Pressure Pressure Support Sodium Potassium Chloride Carbon Dioxide Anion Gap BUN Creatinine Estim Creat Clear Calc Estimated GFR Glucose POC Capillary Glucose 144 H 110 H Lactic Acid 4.4 H* Calcium Phosphorus Magnesium Total Bilirubin AST ALT Alkaline Phosphatase Total Protein Albumin Urine Eosinophils U Random Total Protein Ur Random Urea Urine Total Volume Urine Creatinine Protein/Creat Ratio 2 Random Vancomycin 19.1 Hep Bs Antigen Negative Hep Bs Antibody Negative Blood Type 01/19/24 01/19/24 01/19/24 18:05 18:05 18:05 WBC RBC Hgb Hct MCV MCH MCHC RDW Plt Count MPV % Immature Plt Fraction PT INR APTT Puncture Site ABG pH ABG pCO2 ABG pO2 ABG PO2/FiO2 Ratio ABG HCO3 ABG O2 Saturation ABG O2 Content ABG Base Excess A-a Gradient Oxyhemoglobin Carboxyhemoglobin Methemoglobin Reduced Hemoglobin Total Hemoglobin O2 Delivery Device O2 Liters/Min Minute Volume Vent Rate Vent Mode FiO2 Tidal Volume PEEP Peak Inspir Pressure Pressure Support Sodium Potassium Chloride Carbon Dioxide Anion Gap BUN Creatinine Estim Creat Clear Calc Estimated GFR Glucose POC Capillary Glucose Lactic Acid Calcium Phosphorus Magnesium Total Bilirubin AST ALT Alkaline Phosphatase Total Protein Albumin Urine Eosinophils None seen U Random Total Protein > 600 595 Ur Random Urea < 67 Urine Total Volume TNP Urine Creatinine 68.4 69.0 Protein/Creat Ratio 2 > 8.77 H Random Vancomycin Hep Bs Antigen Hep Bs Antibody Blood Type 01/19/24 01/19/24 01/19/24 20:42 20:49 21:49 WBC RBC Hgb Hct MCV MCH MCHC RDW Plt Count MPV % Immature Plt Fraction PT 20.2 H D INR 1.7 APTT Puncture Site ABG pH ABG pCO2 ABG pO2 ABG PO2/FiO2 Ratio ABG HCO3 ABG O2 Saturation ABG O2 Content ABG Base Excess A-a Gradient Oxyhemoglobin Carboxyhemoglobin Methemoglobin Reduced Hemoglobin Total Hemoglobin O2 Delivery Device O2 Liters/Min Minute Volume Vent Rate Vent Mode FiO2 Tidal Volume PEEP Peak Inspir Pressure Pressure Support Sodium Potassium Chloride Carbon Dioxide Anion Gap BUN Creatinine Estim Creat Clear Calc Estimated GFR Glucose POC Capillary Glucose 106 H Lactic Acid 5.2 H* Calcium Phosphorus Magnesium Total Bilirubin AST ALT Alkaline Phosphatase Total Protein Albumin Urine Eosinophils U Random Total Protein Ur Random Urea Urine Total Volume Urine Creatinine Protein/Creat Ratio 2 Random Vancomycin Hep Bs Antigen Hep Bs Antibody Blood Type 01/20/24 01/20/24 01/20/24 00:06 05:26 05:28 WBC RBC Hgb Hct MCV MCH MCHC RDW Plt Count MPV % Immature Plt Fraction PT INR APTT Puncture Site Artline ABG pH 7.590 H* ABG pCO2 24.4 L ABG pO2 78.1 L ABG PO2/FiO2 Ratio 1.95 ABG HCO3 22.9 ABG O2 Saturation 97.3 ABG O2 Content 11.0 L ABG Base Excess 1.5 A-a Gradient 179.0 Oxyhemoglobin 95.7 Carboxyhemoglobin 0.3 Methemoglobin 0.1 Reduced Hemoglobin 3.9 Total Hemoglobin 8.1 L O2 Delivery Device Ventilator O2 Liters/Min Not Reportable Minute Volume Not Reportable Vent Rate 22 Vent Mode Cmv FiO2 40 Tidal Volume 400 PEEP 8 Peak Inspir Pressure Not Reportable Pressure Support Not Reportable Sodium Potassium Chloride Carbon Dioxide Anion Gap BUN Creatinine Estim Creat Clear Calc Estimated GFR Glucose POC Capillary Glucose 146 H 159 H Lactic Acid Calcium Phosphorus Magnesium Total Bilirubin AST ALT Alkaline Phosphatase Total Protein Albumin Urine Eosinophils U Random Total Protein Ur Random Urea Urine Total Volume Urine Creatinine Protein/Creat Ratio 2 Random Vancomycin Hep Bs Antigen Hep Bs Antibody Blood Type 01/20/24 01/20/24 01/20/24 06:24 06:25 07:57 WBC RBC Hgb Hct MCV MCH MCHC RDW Plt Count MPV % Immature Plt Fraction PT 18.8 H INR 1.5 APTT 26.6 Puncture Site ABG pH ABG pCO2 ABG pO2 ABG PO2/FiO2 Ratio ABG HCO3 ABG O2 Saturation ABG O2 Content ABG Base Excess A-a Gradient Oxyhemoglobin Carboxyhemoglobin Methemoglobin Reduced Hemoglobin Total Hemoglobin O2 Delivery Device O2 Liters/Min Minute Volume Vent Rate Vent Mode FiO2 Tidal Volume PEEP Peak Inspir Pressure Pressure Support Sodium 133 L Potassium 3.6 Chloride 86 L Carbon Dioxide 35 H Anion Gap 12 BUN 32 H Creatinine 2.80 H Estim Creat Clear Calc 19 Estimated GFR 16 L Glucose 162 H POC Capillary Glucose 96 Lactic Acid 4.6 H* Calcium 7.0 L Phosphorus 2.5 Magnesium 1.8 Total Bilirubin 2.9 H AST 483 H ALT 360 H Alkaline Phosphatase 162 H Total Protein 5.0 L Albumin 3.0 L Urine Eosinophils U Random Total Protein Ur Random Urea Urine Total Volume Urine Creatinine Protein/Creat Ratio 2 Random Vancomycin Hep Bs Antigen Hep Bs Antibody Blood Type
[2024-01-20 08:46] LABS: Band Neutrophils Percent 15 % (0-6); Lymphocytes Absolute Manual 2.07 K/mm3 (1.1-4.5); Metamyelocytes Percent 2 %; Monocytes Absolute Manual 1.18 K/mm3 (0.1-0.90); Monocytes Percent Manual 4 % (3-9); Neutrophils Absolute Manual 25.83 K/mm3 (1.7-7.2); Neutrophils Percent Manual 72 % (46-73); Total Cells Counted 100
[2024-01-20 08:47] LABS: Anisocytosis 1+; Hypochromasia 2+; Platelet Estimate Slightly Decreased (Adequate); Schistocytes None Seen
[2024-01-20] MEDS: FENTANYL 2,500MCG/NS250ML(*CRX 2,500 MCG/250 ML BAG IV CONT (09:03)
[2024-01-20] MEDS: CALCIUM GLUC 2,000 MG/NS 100ML 2,000 MG/100 ML BAG 100 MG IVPB (09:05)
[2024-01-20] MEDS: TOLNAFTATE 1% POWDER 45 GM BTL 1 APPLIC TOPICAL ×2 (09:07→20:27)
[2024-01-20 09:15] LABS: Vancomycin Random 22.9 ug/mL (10-20)
--- NOTE | 2024-01-20 09:26 | WPDUROPN2 ---
Progress Note: A&P Assessment and Plan (1) Septic shock: Code(s): A41.9 - Sepsis, unspecified organism; R65.21 - Severe sepsis with septic shock Status: Acute Assessment and Plan: Secondary to urosepsis. Appears to be improving with down trend in lactic acid and leukocytosis. She has come off several pressors. Management per ICU team (2) Urinary tract infection: Code(s): N39.0 - Urinary tract infection, site not specified Status: Acute Assessment and Plan: Urine culture with growth of Klebsiella pneumoniae. Blood cultures negative to date. Continue broad-spectrum antibiotics managed by examination scorer (3) Right ureteral stone: Code(s): N20.1 - Calculus of ureter Status: Acute Assessment and Plan: 11 mm right UPJ stone. Underwent cystoscopy, right retrograde pyelogram, right ureteral stent placement on 01/17/2024. Repeat CT abdomen/pelvis completed on 01/18 shows right ureteral stent in expected position with stone remaining in right UPJ. No plans for further intervention during this hospitalization. Will monitor her clinical course to determine plans for stone management. Subjective Subjective Date/Time Seen: 01/20/24 09:26 Interval history: Remains intubated and sedated. Slight improvement in WBC today compared to yesterday, to 29.7. Started hemodialysis yesterday. Creatinine is 2.8 today. Noted to have poor urine output, though this appears slightly improved today. Rocha catheter in place draining clear yellow urine. Review of Systems Review of Systems: ROS unobtainable: Yes unobtainable due to medical condition Exam Narrative: General: Critically ill, lying supine in bed, sedated Respiratory: On mechanical ventilation Abdomen: Nondistended : Rocha catheter draining clear yellow urine Skin: Normal coloration Objective Data Vital Signs Vital Signs: Vital Signs - 24 hr 01/19/24 10:21 01/19/24 09:56 01/19/24 10:30 Temperature 99.6 F Pulse Rate 85 76 76 Respiratory Rate 28 H Blood Pressure 102/52 L 109/58 L Pulse Oximetry 96 92 Oxygen Delivery Mechanical Ventilation Fraction of Inspired Oxygen 40 01/19/24 10:48 01/19/24 10:48 01/19/24 10:00 Temperature 99.5 F Pulse Rate 74 76 Respiratory Rate 28 H Blood Pressure 121/65 Pulse Oximetry 94 93 Oxygen Delivery Mechanical Ventilation Fraction of Inspired Oxygen 30 08/22/24 10:00 01/19/24 11:41 01/19/24 11:45 Temperature 99.5 F 99.4 F Pulse Rate 74 85 85 Respiratory Rate 28 H 22 H Blood Pressure 122/66 141/78 H 140/77 Pulse Oximetry 94 95 Oxygen Delivery Fraction of Inspired Oxygen 01/19/24 11:33 01/19/24 11:50 01/19/24 11:55 Temperature Pulse Rate 73 84 70 Respiratory Rate Blood Pressure 141/77 H 136/72 Pulse Oximetry 95 Oxygen Delivery Mechanical Ventilation Fraction of Inspired Oxygen 30 01/19/24 11:56 01/19/24 12:00 01/19/24 12:56 Temperature 99.4 F 99.1 F Pulse Rate 72 71 82 Respiratory Rate 22 H 22 H Blood Pressure 135/73 126/68 135/72 Pulse Oximetry 95 94 Oxygen Delivery Fraction of Inspired Oxygen 01/19/24 13:00 01/19/24 13:30 01/19/24 13:50 Temperature 99.0 F Pulse Rate 82 741 H 81 Respiratory Rate 22 H Blood Pressure 136/72 137/72 132/70 Pulse Oximetry 98 Oxygen Delivery Fraction of Inspired Oxygen 01/19/24 13:50 01/19/24 13:50 01/19/24 14:05 Temperature 98.8 F Pulse Rate 81 81 81 Respiratory Rate 22 H 22 H 22 H Blood Pressure 128/68 Pulse Oximetry 98 Oxygen Delivery Fraction of Inspired Oxygen 01/19/24 14:30 01/19/24 14:38 01/19/24 14:39 Temperature Pulse Rate 70 70 70 Respiratory Rate 22 H 22 H Blood Pressure 144/79 H Pulse Oximetry Oxygen Delivery Fraction of Inspired Oxygen 01/19/24 14:36 01/19/24 11:00 01/19/24 12:00 Temperature 100 F H Pulse Rate 71 76 71 Respiratory Rate 20 Blood Pressure 125/50 L Pulse Oximetry 94 99 Oxygen Delivery Mechanical Ventilation Fraction of Inspired Oxygen 30 01/19/24 12:00 01/19/24 12:00 01/19/24 13:00 Temperature 100.2 F H 100.5 F H Pulse Rate 79 77 Respiratory Rate 20 20 Blood Pressure 127/66 111/51 L Pulse Oximetry 99 99 Oxygen Delivery Fraction of Inspired Oxygen 30 01/19/24 14:00 01/19/24 14:00 01/19/24 15:00 Temperature 100.6 F H 100.7 F H Pulse Rate 75 75 76 Respiratory Rate 20 20 Blood Pressure 108/54 L 107/41 L Pulse Oximetry 99 99 Oxygen Delivery Fraction of Inspired Oxygen 01/19/24 12:00 01/19/24 15:54 01/19/24 15:54 Temperature 98.6 F Pulse Rate 79 79 Respiratory Rate 22 H 22 H Blood Pressure 142/75 H Pulse Oximetry 99 Oxygen Delivery Mechanical Ventilation Fraction of Inspired Oxygen 30 30 01/19/24 16:00 01/19/24 16:00 01/19/24 16:00 Temperature 98.8 F Pulse Rate 80 78 79 Respiratory Rate 22 H Blood Pressure 136/71 133/67 Pulse Oximetry 91 Oxygen Delivery Fraction of Inspired Oxygen 01/19/24 10:00 01/19/24 14:00 01/19/24 16:00 Temperature Pulse Rate 76 81 77 Respiratory Rate Blood Pressure 113/65 127/67 136/68 Pulse Oximetry Oxygen Delivery Fraction of Inspired Oxygen 01/19/24 10:00 01/19/24 12:00 01/19/24 14:00 Temperature Pulse Rate 76 72 81 Respiratory Rate 28 H 22 H 22 H Blood Pressure Pulse Oximetry Oxygen Delivery Fraction of Inspired Oxygen 01/19/24 16:00 01/19/24 10:00 01/19/24 12:00 Temperature Pulse Rate 78 76 72 Respiratory Rate 22 H 28 H 22 H Blood Pressure Pulse Oximetry Oxygen Delivery Fraction of Inspired Oxygen 01/19/24 14:00 01/19/24 16:00 01/19/24 16:15 Temperature Pulse Rate 81 78 79 Respiratory Rate 22 H 22 H Blood Pressure 131/67 Pulse Oximetry Oxygen Delivery Fraction of Inspired Oxygen 01/19/24 16:43 01/19/24 16:30 01/19/24 17:00 Temperature Pulse Rate 78 79 78 Respiratory Rate Blood Pressure 135/66 135/67 135/64 Pulse Oximetry Oxygen Delivery Fraction of Inspired Oxygen 01/19/24 16:45 01/19/24 17:15 01/19/24 17:30 Temperature Pulse Rate 78 78 78 Respiratory Rate Blood Pressure 134/65 138/65 138/67 Pulse Oximetry Oxygen Delivery Fraction of Inspired Oxygen 01/19/24 17:45 01/19/24 16:58 01/19/24 18:00 Temperature Pulse Rate 68 79 76 Respiratory Rate Blood Pressure 135/61 139/63 Pulse Oximetry 92 Oxygen Delivery Mechanical Ventilation Fraction of Inspired Oxygen 30 01/19/24 18:10 01/19/24 18:15 01/19/24 17:00 Temperature 98.8 F Pulse Rate 77 76 76 Respiratory Rate 22 H Blood Pressure 139/64 132/62 124/54 L Pulse Oximetry 91 Oxygen Delivery Fraction of Inspired Oxygen 01/19/24 18:00 01/19/24 18:00 01/19/24 18:30 Temperature 98.7 F Pulse Rate 75 74 75 Respiratory Rate 22 H Blood Pressure 125/52 L 125/54 L Pulse Oximetry 90 Oxygen Delivery Fraction of Inspired Oxygen 01/19/24 18:00 01/19/24 18:00 01/19/24 16:00 Temperature Pulse Rate 74 74 79 Respiratory Rate 22 H 22 H 22 H Blood Pressure Pulse Oximetry 93 Oxygen Delivery Mechanical Ventilation Fraction of Inspired Oxygen 30 01/19/24 16:00 01/19/24 18:00 01/19/24 19:09 Temperature 98.8 F Pulse Rate 76 74 Respiratory Rate 22 H Blood Pressure 138/63 130/58 L Pulse Oximetry Oxygen Delivery Fraction of Inspired Oxygen 30 01/19/24 18:15 01/19/24 18:30 01/19/24 18:45 Temperature Pulse Rate 77 76 75 Respiratory Rate Blood Pressure 134/60 127/55 L 124/54 L Pulse Oximetry Oxygen Delivery Fraction of Inspired Oxygen 01/19/24 19:00 01/19/24 20:27 01/19/24 20:00 Temperature Pulse Rate 75 75 78 Respiratory Rate Blood Pressure 123/55 L 138/63 Pulse Oximetry 95 Oxygen Delivery Mechanical Ventilation Fraction of Inspired Oxygen 30 01/19/24 20:00 01/19/24 20:00 01/19/24 20:00 Temperature Pulse Rate 78 78 78 Respiratory Rate 22 H 22 H Blood Pressure 138/63 Pulse Oximetry Oxygen Delivery Fraction of Inspired Oxygen 01/19/24 19:00 01/19/24 20:00 01/19/24 20:00 Temperature 98.8 F 98.4 F Pulse Rate 74 78 79 Respiratory Rate 22 H 22 H Blood Pressure 124/53 L 138/63 Pulse Oximetry 90 93 Oxygen Delivery Fraction of Inspired Oxygen 01/19/24 20:00 01/19/24 20:00 01/19/24 21:00 Temperature 98.4 F Pulse Rate 78 74 Respiratory Rate 22 H 22 H Blood Pressure 140/61 Pulse Oximetry 93 93 Oxygen Delivery Mechanical Ventilation Fraction of Inspired Oxygen 30 30 01/19/24 22:00 01/19/24 22:00 01/19/24 23:26 Temperature 98.6 F Pulse Rate 79 79 80 Respiratory Rate 22 H Blood Pressure 138/62 Pulse Oximetry 94 93 Oxygen Delivery Mechanical Ventilation Fraction of Inspired Oxygen 40 01/20/24 00:14 01/20/24 00:14 01/20/24 00:00 Temperature Pulse Rate 83 83 80 Respiratory Rate 22 H 88 H Blood Pressure Pulse Oximetry Oxygen Delivery Fraction of Inspired Oxygen 01/20/24 00:00 01/20/24 00:00 01/19/24 23:00 Temperature 98.8 F Pulse Rate 82 82 Respiratory Rate 22 H 22 H Blood Pressure 144/66 H Pulse Oximetry 94 90 Oxygen Delivery Mechanical Ventilation Fraction of Inspired Oxygen 30 30 01/20/24 00:00 01/20/24 01:00 01/19/24 22:00 Temperature 99.0 F 99.2 F Pulse Rate 82 81 79 Respiratory Rate 22 H 22 H Blood Pressure 163/72 H 119/96 H 138/62 Pulse Oximetry 94 94 Oxygen Delivery Fraction of Inspired Oxygen 01/20/24 00:00 01/19/24 22:00 01/20/24 00:00 Temperature Pulse Rate 82 79 82 Respiratory Rate 22 H 22 H Blood Pressure 163/72 H Pulse Oximetry Oxygen Delivery Fraction of Inspired Oxygen 01/19/24 22:00 01/20/24 00:00 01/20/24 02:00 Temperature Pulse Rate 79 82 83 Respiratory Rate 22 H 22 H Blood Pressure Pulse Oximetry Oxygen Delivery Fraction of Inspired Oxygen 01/20/24 02:00 01/20/24 04:00 01/20/24 02:00 Temperature Pulse Rate 83 85 83 Respiratory Rate 22 H Blood Pressure 134/87 159/86 H Pulse Oximetry Oxygen Delivery Fraction of Inspired Oxygen 01/20/24 04:00 01/20/24 02:00 01/20/24 04:00 Temperature Pulse Rate 85 83 85 Respiratory Rate 22 H 22 H 22 H Blood Pressure Pulse Oximetry Oxygen Delivery Fraction of Inspired Oxygen 01/20/24 02:00 01/20/24 04:00 01/20/24 04:00 Temperature 99.4 F Pulse Rate 83 85 Respiratory Rate 22 H 22 H Blood Pressure 134/87 Pulse Oximetry 93 93 Oxygen Delivery Mechanical Ventilation Fraction of Inspired Oxygen 40 40 01/20/24 05:00 01/20/24 04:00 01/20/24 03:00 Temperature 99.9 F H 99.7 F H Pulse Rate 84 87 85 Respiratory Rate 22 H 22 H Blood Pressure 144/79 H 153/82 H Pulse Oximetry 94 93 Oxygen Delivery Fraction of Inspired Oxygen 01/20/24 04:00 01/20/24 05:17 01/20/24 02:30 Temperature 99.9 F H Pulse Rate 85 85 84 Respiratory Rate 22 H Blood Pressure 159/86 H Pulse Oximetry 93 93 96 Oxygen Delivery Mechanical Ventilation Mechanical Ventilation Fraction of Inspired Oxygen 40 40 01/20/24 06:00 01/20/24 06:00 01/20/24 06:00 Temperature 99.8 F H Pulse Rate 85 85 85 Respiratory Rate 22 H Blood Pressure 120/99 H 120/99 H Pulse Oximetry 92 Oxygen Delivery Fraction of Inspired Oxygen 01/20/24 06:00 01/20/24 06:00 01/20/24 07:00 Temperature 99.5 F Pulse Rate 85 85 76 Respiratory Rate 22 H 22 H 20 Blood Pressure 91/49 L Pulse Oximetry 94 Oxygen Delivery Fraction of Inspired Oxygen 01/20/24 08:00 01/20/24 08:00 01/20/24 08:00 Temperature Pulse Rate 81 83 83 Respiratory Rate 22 H 22 H Blood Pressure 153/88 H Pulse Oximetry Oxygen Delivery Fraction of Inspired Oxygen 01/20/24 08:00 01/20/24 08:33 01/20/24 08:51 Temperature 99.2 F Pulse Rate 81 81 Respiratory Rate 22 H Blood Pressure 153/88 H Pulse Oximetry 94 94 Oxygen Delivery Mechanical Ventilation Fraction of Inspired Oxygen 40 40 01/20/24 08:51 01/20/24 09:03 01/20/24 09:03 Temperature 99.5 F Pulse Rate 83 83 Respiratory Rate 18 18 Blood Pressure Pulse Oximetry Oxygen Delivery Fraction of Inspired Oxygen 01/20/24 09:00 Temperature 99.5 F Pulse Rate 83 Respiratory Rate 18 Blood Pressure 153/88 H Pulse Oximetry 94 Oxygen Delivery Fraction of Inspired Oxygen Intake/Output Intake/Output: Intake & Output 01/17/24 01/18/24 01/19/24 01/20/24 23:59 23:59 23:59 23:59 Intake Total 4514.6 6609.8 5378.0 1170.1 Output Total 700 506 3257 125 Balance 4374.6 6409.8 4243.0 1045.1 Meds/Results Medications: Active Medications Generic Name Dose Route Start Last Admin Trade Name Freq PRN Reason Stop Dose Admin Dextrose 12.5 gm 01/20/24 08:35 Dextrose 50% 25 Gm/50 Ml Syringe IV PUSH PRN PRN Hypoglycemia Protocol Epoetin Brent-epbx 10,000 units 01/20/24 20:00 Epoetin Brent-Epbx 10,000 Units/Ml Vial IV PUSH 01/20/24 20:01 ONCE ONE Glucagon 1 mg 01/20/24 08:35 Glucagon For Inj 1 Mg Vial IM PRN PRN Hypoglycemia Protocol Glucose 15 gm 01/20/24 08:35 Glucose Oral Gel 15 Gm Of Glucse In 37.5 Gm Tube PO PRN PRN Hypoglycemia Protocol Hydrocortisone Sodium Succinate 100 mg 01/20/24 09:00 01/20/24 09:07 Hydrocortisone Sodium Succinate 100 Mg/2 Ml Vial IV PUSH 100 mg QAM TANNA Administration Norepinephrine Bitartrate 8 mg in 250 mls @ 0 mls/hr 01/17/24 13:00 01/20/24 08:18 Levophed 8 Mg/D5w 250 Ml IV CONT Not Given .Q0M TANNA Protocol 0 MCG/MIN Fentanyl Citrate 2,500 mcg in 250 mls @ 5 mls/hr 01/17/24 22:35 01/20/24 09:03 Fentanyl 2,500 Mcg/Ns 250 Ml IV CONT 50 mcg/hr .Q50H TANNA 5 mls/hr Administration Protocol 50 MCG/HR Midazolam HCl 100 mg in 100 mls @ 2 mls/hr 01/17/24 22:35 01/20/24 08:00 Versed 100 Mg/Ns 100 Ml IV CONT 2 mg/hr .Q50H TANNA 2 mls/hr Titration Protocol 2 MG/HR Aztreonam 1 gm/ Sodium 50 mls @ 100 mls/hr 01/19/24 18:00 01/20/24 06:41 Chloride IVPB Infused Q12H TANNA Infusion Albumin Human 50 mls @ 999 mls/hr 01/19/24 12:02 Albutein IVPB 02/18/24 12:01 Q10M PRN HYPOTENSION Dextrose 1,000 mls @ 100 mls/hr 01/20/24 08:35 Dextrose 5% 1,000 Ml IVPB PRN PRN Hypoglycemia Protocol Insulin Aspart 2 - 5 units 01/20/24 08:35 01/20/24 09:07 Insulin Aspart (*Bkc) 100 Units/Ml SUB-Q Not Given Q4H [facility] Protocol Multi-Ingred Cream/Lotion/Oil/Oint 1 applic 01/18/24 09:00 01/20/24 08:12 Mineral Oil/White Petrolatum Ointment EACH EYE 1 applic Q12HR TANNA Administration Nabumetone 750 mg 01/17/24 21:00 Nabumetone 750 Mg Tablet PO Q12HR TANNA Ondansetron HCl 4 mg 01/17/24 12:42 01/17/24 12:51 Ondansetron Inj 4 Mg/2 Ml Vial IV PUSH 4 mg Q4H PRN Administration Nausea Pantoprazole Sodium 40 mg 01/19/24 09:00 01/20/24 08:12 Pantoprazole Sodium Iv 40 Mg Vial IV PUSH 40 mg Q12HR TANNA Administration Sodium Chloride 10 ml 01/17/24 22:00 01/20/24 06:11 Central Line Flush IV PUSH 10 ml Q8HR TANNA Administration Sodium Chloride 20 ml 01/17/24 16:51 Central Line Flush IV PUSH PRN PRN after blood draws Tolnaftate 1 applic 01/20/24 09:00 01/20/24 09:07 Tolnaftate 1% Powder 45 Gm Btl TOPICAL 1 applic Q12HR TANNA Administration Vancomycin HCl 1 each 01/19/24 21:33 Vancomycin For Hemodialysis IVPB PRN PRN Vancomycin Protocol Radiology Results: ITS Impressions Abdomen/Pelvis CT 01/17/24 10:23 IMPRESSION: 1. 11 mm stone at right ureteropelvic junction with mild right hydronephrosis. 2. 1 mm nonobstructing left kidney stone. 3. 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 Ureter Stent X-Ray 01/17/24 15:20 IMPRESSION: 1. Persistent stone at the right ureteropelvic junction with placement of a right internal ureteral stent in expected position. Is unclear the stone has been removed on the final image and would correlate with procedure note for further detail. Renal Ultrasound 01/17/24 19:03 IMPRESSION: 1. 7.2 cm left renal cyst. Otherwise normal kidneys with no hydronephrosis. Abdomen X-Ray 01/17/24 23:21 IMPRESSION: 1. Endotracheal tube and nasogastric tube in expected positions as detailed above. 2. Unchanged mild elevation of the right hemidiaphragm with streaky atelectasis versus less likely pneumonia at the bilateral lower lung zones. Chest/Abdomen/Pelvis CT 01/19/24 09:48 IMPRESSION: 1. Patchy airspace opacities in right lung upper lobe, consistent with atelectasis versus pneumonia. 2. Small pleural effusions, right worse than left. 3. Small volume of ascites. 4. 8 mm stone in right renal pelvis with right internal ureteral stent in expected position. 5. 2 mm nonobstructing left kidney stone. Chest X-Ray 01/20/24 06:12 IMPRESSION: 1. Stable airspace opacities in the lower lung zones, consistent with atelectasis versus pneumonia. 2. Small pleural effusions. 3. Cardiomegaly. Labs Labs: Laboratory Results - last 24 hr 01/19/24 01/19/24 01/19/24 08:56 11:20 12:19 WBC RBC Hgb Hct MCV MCH MCHC RDW Plt Count MPV Immature Gran % (Auto) Neut % (Auto) Lymph % (Auto) [place] % (Auto) Eos % (Auto) Baso % (Auto) Lymph # (Auto) [place] # (Auto) Eos # (Auto) Baso # (Auto) Abs Immat Gran (auto) Absolute Neuts (auto) Absolute Nucleated RBC Total Counted Neutrophils % (Manual) Band Neutrophils % Lymphocytes % (Manual) Monocytes % (Manual) Metamyelocytes % Nucleated RBC % Abs Neuts (Manual) Abs Lymphs (Manual) Abs Monocytes (Manual) Platelet Estimate % Immature Plt Fraction Hypochromasia Anisocytosis Schistocytes PT INR APTT Puncture Site Artline ABG pH 7.557 H* ABG pCO2 25.4 L ABG pO2 79.0 L ABG PO2/FiO2 Ratio 2.63 ABG HCO3 22.1 ABG O2 Saturation 97.2 ABG O2 Content 12.3 L ABG Base Excess 0.4 A-a Gradient 105.1 Oxyhemoglobin 96.2 Carboxyhemoglobin Methemoglobin Reduced Hemoglobin Total Hemoglobin 9.0 L O2 Delivery Device Ventilator O2 Liters/Min Not Reportable Minute Volume Not Reportable Vent Rate 28 Vent Mode Cmv FiO2 30 Tidal Volume 400 PEEP 8 Peak Inspir Pressure Not Reportable Pressure Support Not Reportable Sodium Potassium Chloride Carbon Dioxide Anion Gap BUN Creatinine Estim Creat Clear Calc Estimated GFR Glucose POC Capillary Glucose 144 H Lactic Acid Calcium Phosphorus Magnesium Total Bilirubin AST ALT Alkaline Phosphatase Total Protein Albumin Urine Eosinophils U Random Total Protein Ur Random Urea Urine Total Volume Urine Creatinine Protein/Creat Ratio 2 Random Vancomycin Hep Bs Antigen Hep Bs Antibody Blood Type O Positive 01/19/24 01/19/24 01/19/24 18:02 18:03 18:05 WBC 31.8 H RBC 2.60 L Hgb 8.5 L Hct 24.5 L MCV 94.2 MCH 32.7 MCHC 34.7 RDW 14.2 Plt Count 126 L D MPV 11.2 H Immature Gran % (Auto) Neut % (Auto) Lymph % (Auto) [place] % (Auto) Eos % (Auto) Baso % (Auto) Lymph # (Auto) [place] # (Auto) Eos # (Auto) Baso # (Auto) Abs Immat Gran (auto) Absolute Neuts (auto) Absolute Nucleated RBC Total Counted Neutrophils % (Manual) Band Neutrophils % Lymphocytes % (Manual) Monocytes % (Manual) Metamyelocytes % Nucleated RBC % Abs Neuts (Manual) Abs Lymphs (Manual) Abs Monocytes (Manual) Platelet Estimate % Immature Plt Fraction 9.6 Hypochromasia Anisocytosis Schistocytes PT INR APTT Puncture Site ABG pH ABG pCO2 ABG pO2 ABG PO2/FiO2 Ratio ABG HCO3 ABG O2 Saturation ABG O2 Content ABG Base Excess A-a Gradient Oxyhemoglobin Carboxyhemoglobin Methemoglobin Reduced Hemoglobin Total Hemoglobin O2 Delivery Device O2 Liters/Min Minute Volume Vent Rate Vent Mode FiO2 Tidal Volume PEEP Peak Inspir Pressure Pressure Support Sodium Potassium Chloride Carbon Dioxide Anion Gap BUN Creatinine Estim Creat Clear Calc Estimated GFR Glucose POC Capillary Glucose 110 H Lactic Acid 4.4 H* Calcium Phosphorus Magnesium Total Bilirubin AST ALT Alkaline Phosphatase Total Protein Albumin Urine Eosinophils None seen U Random Total Protein > 600 Ur Random Urea Urine Total Volume Urine Creatinine Protein/Creat Ratio 2 Random Vancomycin 19.1 Hep Bs Antigen Negative Hep Bs Antibody Negative Blood Type 01/19/24 01/19/24 01/19/24 18:05 18:05 20:42 WBC RBC Hgb Hct MCV MCH MCHC RDW Plt Count MPV Immature Gran % (Auto) Neut % (Auto) Lymph % (Auto) [place] % (Auto) Eos % (Auto) Baso % (Auto) Lymph # (Auto) [place] # (Auto) Eos # (Auto) Baso # (Auto) Abs Immat Gran (auto) Absolute Neuts (auto) Absolute Nucleated RBC Total Counted Neutrophils % (Manual) Band Neutrophils % Lymphocytes % (Manual) Monocytes % (Manual) Metamyelocytes % Nucleated RBC % Abs Neuts (Manual) Abs Lymphs (Manual) Abs Monocytes (Manual) Platelet Estimate % Immature Plt Fraction Hypochromasia Anisocytosis Schistocytes PT 20.2 H D INR 1.7 APTT Puncture Site ABG pH ABG pCO2 ABG pO2 ABG PO2/FiO2 Ratio ABG HCO3 ABG O2 Saturation ABG O2 Content ABG Base Excess A-a Gradient Oxyhemoglobin Carboxyhemoglobin Methemoglobin Reduced Hemoglobin Total Hemoglobin O2 Delivery Device O2 Liters/Min Minute Volume Vent Rate Vent Mode FiO2 Tidal Volume PEEP Peak Inspir Pressure Pressure Support Sodium Potassium Chloride Carbon Dioxide Anion Gap BUN Creatinine Estim Creat Clear Calc Estimated GFR Glucose POC Capillary Glucose Lactic Acid Calcium Phosphorus Magnesium Total Bilirubin AST ALT Alkaline Phosphatase Total Protein Albumin Urine Eosinophils U Random Total Protein 595 Ur Random Urea < 67 Urine Total Volume TNP Urine Creatinine 68.4 69.0 Protein/Creat Ratio 2 > 8.77 H Random Vancomycin Hep Bs Antigen Hep Bs Antibody Blood Type 01/19/24 01/19/24 01/20/24 20:49 21:49 00:06 WBC RBC Hgb Hct MCV MCH MCHC RDW Plt Count MPV Immature Gran % (Auto) Neut % (Auto) Lymph % (Auto) [place] % (Auto) Eos % (Auto) Baso % (Auto) Lymph # (Auto) [place] # (Auto) Eos # (Auto) Baso # (Auto) Abs Immat Gran (auto) Absolute Neuts (auto) Absolute Nucleated RBC Total Counted Neutrophils % (Manual) Band Neutrophils % Lymphocytes % (Manual) Monocytes % (Manual) Metamyelocytes % Nucleated RBC % Abs Neuts (Manual) Abs Lymphs (Manual) Abs Monocytes (Manual) Platelet Estimate % Immature Plt Fraction Hypochromasia Anisocytosis Schistocytes PT INR APTT Puncture Site ABG pH ABG pCO2 ABG pO2 ABG PO2/FiO2 Ratio ABG HCO3 ABG O2 Saturation ABG O2 Content ABG Base Excess A-a Gradient Oxyhemoglobin Carboxyhemoglobin Methemoglobin Reduced Hemoglobin Total Hemoglobin O2 Delivery Device O2 Liters/Min Minute Volume Vent Rate Vent Mode FiO2 Tidal Volume PEEP Peak Inspir Pressure Pressure Support Sodium Potassium Chloride Carbon Dioxide Anion Gap BUN Creatinine Estim Creat Clear Calc Estimated GFR Glucose POC Capillary Glucose 106 H 146 H Lactic Acid 5.2 H* Calcium Phosphorus Magnesium Total Bilirubin AST ALT Alkaline Phosphatase Total Protein Albumin Urine Eosinophils U Random Total Protein Ur Random Urea Urine Total Volume Urine Creatinine Protein/Creat Ratio 2 Random Vancomycin Hep Bs Antigen Hep Bs Antibody Blood Type 01/20/24 01/20/24 01/20/24 05:26 05:28 06:24 WBC 29.7 H RBC 2.65 L Hgb 8.7 L Hct 25.4 L MCV 95.8 MCH 32.8 MCHC 34.3 RDW 14.5 Plt Count 86 L MPV 12.0 H Immature Gran % (Auto) Not Reportable Neut % (Auto) Not Reportable Lymph % (Auto) Not Reportable [place] % (Auto) Not Reportable Eos % (Auto) Not Reportable Baso % (Auto) Not Reportable Lymph # (Auto) Not Reportable [place] # (Auto) Not Reportable Eos # (Auto) Not Reportable Baso # (Auto) Not Reportable Abs Immat Gran (auto) Not Reportable Absolute Neuts (auto) Not Reportable Absolute Nucleated RBC Not Reportable Total Counted 100 Neutrophils % (Manual) 72 Band Neutrophils % 15 H Lymphocytes % (Manual) 7.0 L Monocytes % (Manual) 4 Metamyelocytes % 2 Nucleated RBC % Not Reportable Abs Neuts (Manual) 25.83 H Abs Lymphs (Manual) 2.07 Abs Monocytes (Manual) 1.18 H Platelet Estimate Slightly decreased % Immature Plt Fraction 10.0 Hypochromasia 2+ Anisocytosis 1+ Schistocytes None seen PT 18.8 H INR 1.5 APTT 26.6 Puncture Site Artline ABG pH 7.590 H* ABG pCO2 24.4 L ABG pO2 78.1 L ABG PO2/FiO2 Ratio 1.95 ABG HCO3 22.9 ABG O2 Saturation 97.3 ABG O2 Content 11.0 L ABG Base Excess 1.5 A-a Gradient 179.0 Oxyhemoglobin 95.7 Carboxyhemoglobin 0.3 Methemoglobin 0.1 Reduced Hemoglobin 3.9 Total Hemoglobin 8.1 L O2 Delivery Device Ventilator O2 Liters/Min Not Reportable Minute Volume Not Reportable Vent Rate 22 Vent Mode Cmv FiO2 40 Tidal Volume 400 PEEP 8 Peak Inspir Pressure Not Reportable Pressure Support Not Reportable Sodium 133 L Potassium 3.6 Chloride 86 L Carbon Dioxide 35 H Anion Gap 12 BUN 32 H Creatinine 2.80 H Estim Creat Clear Calc 19 Estimated GFR 16 L Glucose 162 H POC Capillary Glucose 159 H Lactic Acid Calcium 7.0 L Phosphorus 2.5 Magnesium 1.8 Total Bilirubin 2.9 H AST 483 H ALT 360 H Alkaline Phosphatase 162 H Total Protein 5.0 L Albumin 3.0 L Urine Eosinophils U Random Total Protein Ur Random Urea Urine Total Volume Urine Creatinine Protein/Creat Ratio 2 Random Vancomycin Hep Bs Antigen Hep Bs Antibody Blood Type 01/20/24 01/20/24 01/20/24 06:25 07:57 08:00 WBC RBC Hgb Hct MCV MCH MCHC RDW Plt Count MPV Immature Gran % (Auto) Neut % (Auto) Lymph % (Auto) [place] % (Auto) Eos % (Auto) Baso % (Auto) Lymph # (Auto) [place] # (Auto) Eos # (Auto) Baso # (Auto) Abs Immat Gran (auto) Absolute Neuts (auto) Absolute Nucleated RBC Total Counted Neutrophils % (Manual) Band Neutrophils % Lymphocytes % (Manual) Monocytes % (Manual) Metamyelocytes % Nucleated RBC % Abs Neuts (Manual) Abs Lymphs (Manual) Abs Monocytes (Manual) Platelet Estimate % Immature Plt Fraction Hypochromasia Anisocytosis Schistocytes PT INR APTT Puncture Site ABG pH ABG pCO2 ABG pO2 ABG PO2/FiO2 Ratio ABG HCO3 ABG O2 Saturation ABG O2 Content ABG Base Excess A-a Gradient Oxyhemoglobin Carboxyhemoglobin Methemoglobin Reduced Hemoglobin Total Hemoglobin O2 Delivery Device O2 Liters/Min Minute Volume Vent Rate Vent Mode FiO2 Tidal Volume PEEP Peak Inspir Pressure Pressure Support Sodium Potassium Chloride Carbon Dioxide Anion Gap BUN Creatinine Estim Creat Clear Calc Estimated GFR Glucose POC Capillary Glucose 96 Lactic Acid 4.6 H* Calcium Phosphorus Magnesium Total Bilirubin AST ALT Alkaline Phosphatase Total Protein Albumin Urine Eosinophils U Random Total Protein Ur Random Urea Urine Total Volume Urine Creatinine Protein/Creat Ratio 2 Random Vancomycin 22.9 H Hep Bs Antigen Hep Bs Antibody Blood Type
[2024-01-20 09:40] LABS: Reflex Lactic Acid Yes or No Add Lactic
[2024-01-20] MEDS: EPOETIN ALFA-EPBX 10,000 UNITS/ML VIAL 10000 UNITS IV PUSH (10:22)
--- NOTE | 2024-01-20 10:32 | P.PNNP_ITS ---
Progress Note: A&P Assessment and Plan (1) Acute kidney injury: Code(s): N17.9 - Acute kidney failure, unspecified Status: Acute Assessment and Plan: * due to ATN with multifactorial etiology: * hemodynamic instability/shock * infection/sepsis * BP medications prior to admission * diuretics prior to admission * obstructive uropathy * nephrolithiasis * s/p adequate fluid resuscitation * still requiring low dose vasopressor support (levophed) * given worsening creatinine, metabolic acidosis, and anuria -- initiated on [employer]/hemodialysis * HD yesterday * HD today * plan HD tomorrow as well * follow repeat labs and UOP for potential renal recovery (2) Septic shock: Code(s): A41.9 - Sepsis, unspecified organism; R65.21 - Severe sepsis with septic shock Status: Acute Assessment and Plan: * due to pyelonephritis in association with obstructing right UPJ stone * s/p IVF resuscitation and was requiring significant vasopressor support * weaned of levophed, vasopressin, juanis-synephrine and epinephrine * s/p cystoscopy, right retrograde pyelogram, right ureteral stent placement on 12/29 * follow culture data - results noted * on IV antibiotics (3) Acute respiratory failure: Code(s): J96.00 - Acute respiratory failure, unspecified whether with hypoxia or hypercapnia Status: Acute Assessment and Plan: * secondary to metabolic acidosis and severe septic shock * continue ventilator support * wean when more stable (4) Metabolic acidosis: Code(s): E87.20 - Acidosis, unspecified Status: Acute Assessment and Plan: * improving * due to AMARIS/ARF and severe lactic acidosis * repeat CT scan without evidence of bowel ischemia * s/p multiple doses of sodium bicarb IV pushes * off bicarb infusion * dialysis helping * follow trend of lactic acid (5) Pyelonephritis: Code(s): N12 - Tubulo-interstitial nephritis, not specified as acute or chronic Status: Acute Assessment and Plan: * as evidence by symptoms and imaging findings CT scan of the abdomen and pelvis with right UPJ stone with hydronephrosis and possible pyelonephritis given UA findings * on antibiotic therapy * s/p cystoscopy, right retrograde pyelogram, right ureteral stent placement on 01/16 (6) Right ureteral stone: Code(s): N20.1 - Calculus of ureter Status: Acute Assessment and Plan: * Urology following * see #4 (7) Shock liver: Code(s): K72.00 - Acute and subacute hepatic failure without coma Status: Acute Assessment and Plan: * due to severe sepsis and shock * follow trend of LFTs and INR (8) Thrombocytopenia: Code(s): D69.6 - Thrombocytopenia, unspecified Status: Acute Assessment and Plan: * likely related to septic shock * follow trend of platelets Will continue to follow. Subjective Date/time seen: 01/20/24 10:32 Interval history: Follow-up for acute kidney injury/acute renal failure. Tolerated hemodialysis treatment yesterday afternoon and tolerating dialysis treatment this morning at the time of my visit (seen on HD at 10:20AM); weaned off all vasopressor therapy with stable hemodynamics currently; remains intubated/sedated and on ventilator support; lactic acidosis still present but better; still not making much urine; off bicarb gtt at this time. Exam Narrative: General: elderly female intubated/sedated and on mechanical ventilation Heart: normal S1 and S2; no rub Lungs: coarse breath sounds with bibasilar crackles Abdomen: soft, nontender, nondistended, positive bowel sounds Extremities: 1+ edema noted bilaterally Skin: purple discoloration in feet/toes/finger tips Objective Data Vital Signs Vital Signs: Vital Signs Temp Pulse Resp BP Pulse Ox O2 Del Method FiO2 01/20/24 10:30 80 147/76 H 01/20/24 10:15 79 144/82 H 01/20/24 10:00 99.6 70 18 143/82 H Mechanical Ventilation 40 01/20/24 09:24 99.5 F 82 18 151/85 H 94 01/20/24 09:44 71 132/83 01/20/24 08:00 79 01/20/24 09:00 99.5 F 83 18 153/88 H 94 01/20/24 09:03 83 18 01/20/24 09:03 83 18 01/20/24 08:51 99.5 F 01/20/24 08:51 40 01/20/24 08:33 81 94 Mechanical Ventilation 40 01/20/24 08:00 99.2 F 81 22 H 153/88 H 94 01/20/24 08:00 83 22 H 01/20/24 08:00 83 22 H 01/20/24 08:00 81 153/88 H 01/20/24 07:00 99.5 F 76 20 91/49 L 94 01/20/24 06:00 85 22 H 01/20/24 06:00 85 22 H 01/20/24 06:00 85 120/99 H 01/20/24 06:00 99.8 F H 85 22 H 120/99 H 92 01/20/24 06:00 85 01/20/24 02:30 84 96 Mechanical Ventilation 40 01/20/24 05:17 85 93 Mechanical Ventilation 40 01/20/24 04:00 99.9 F H 85 22 H 159/86 H 93 01/20/24 03:00 99.7 F H 85 22 H 153/82 H 93 01/20/24 04:00 87 01/20/24 05:00 99.9 F H 84 22 H 144/79 H 94 01/20/24 04:00 85 22 H 93 Mechanical Ventilation 40 01/20/24 04:00 40 01/20/24 02:00 99.4 F 83 22 H 134/87 93 01/20/24 04:00 85 22 H 01/20/24 02:00 83 22 H 01/20/24 04:00 85 22 H 01/20/24 02:00 83 22 H 01/20/24 04:00 85 159/86 H 01/20/24 02:00 83 134/87 01/20/24 02:00 83 01/20/24 00:00 82 22 H 01/19/24 22:00 79 22 H 01/20/24 00:00 82 22 H 01/19/24 22:00 79 22 H 01/20/24 00:00 82 163/72 H 01/19/24 22:00 79 138/62 01/20/24 01:00 99.2 F 81 22 H 119/96 H 94 01/20/24 00:00 99.0 F 82 22 H 163/72 H 94 01/19/24 23:00 98.8 F 82 22 H 144/66 H 90 01/20/24 00:00 82 22 H 94 Mechanical Ventilation 30 01/20/24 00:00 30 01/20/24 00:00 80 01/20/24 00:14 83 88 H 01/20/24 00:14 83 22 H 01/19/24 23:26 80 93 Mechanical Ventilation 40 01/19/24 22:00 79 01/19/24 22:00 98.6 F 79 22 H 138/62 94 01/19/24 21:00 98.4 F 74 22 H 140/61 93 01/19/24 20:00 30 01/19/24 20:00 78 22 H 93 Mechanical Ventilation 30 01/19/24 20:00 79 01/19/24 20:00 98.4 F 78 22 H 138/63 93 01/19/24 19:00 98.8 F 74 22 H 124/53 L 90 01/19/24 20:00 78 22 H 01/19/24 20:00 78 138/63 01/19/24 20:00 78 22 H 01/19/24 20:00 78 138/63 01/19/24 20:27 75 95 Mechanical Ventilation 30 01/19/24 19:00 75 123/55 L 01/19/24 18:45 75 124/54 L 01/19/24 18:30 76 127/55 L 01/19/24 18:15 77 134/60 01/19/24 19:09 98.8 F 74 22 H 130/58 L 01/19/24 18:00 76 138/63 01/19/24 16:00 30 01/19/24 16:00 79 22 H 93 Mechanical Ventilation 30 01/19/24 18:00 74 22 H 01/19/24 18:00 74 22 H 01/19/24 18:30 75 125/54 L 01/19/24 18:00 74 01/19/24 18:00 98.7 F 75 22 H 125/52 L 90 01/19/24 17:00 98.8 F 76 22 H 124/54 L 91 01/19/24 18:15 76 132/62 01/19/24 18:10 77 139/64 01/19/24 18:00 76 139/63 01/19/24 16:58 79 92 Mechanical Ventilation 30 01/19/24 17:45 68 135/61 01/19/24 17:30 78 138/67 01/19/24 17:15 78 138/65 01/19/24 16:45 78 134/65 01/19/24 17:00 78 135/64 01/19/24 16:30 79 135/67 01/19/24 16:43 78 135/66 01/19/24 16:15 79 131/67 01/19/24 16:00 78 22 H 01/19/24 14:00 81 22 H 01/19/24 12:00 72 22 H 01/19/24 16:00 78 22 H 01/19/24 14:00 81 22 H 01/19/24 12:00 72 22 H 01/19/24 16:00 77 136/68 01/19/24 14:00 81 127/67 01/19/24 16:00 98.8 F 79 22 H 133/67 91 01/19/24 16:00 78 01/19/24 16:00 80 136/71 01/19/24 15:54 98.6 F 79 22 H 142/75 H 01/19/24 15:54 30 01/19/24 12:00 79 22 H 99 Mechanical Ventilation 30 01/19/24 15:00 100.7 F H 76 20 107/41 L 99 01/19/24 14:00 100.6 F H 75 20 108/54 L 99 01/19/24 14:00 75 01/19/24 13:00 100.5 F H 77 20 111/51 L 99 01/19/24 12:00 30 01/19/24 12:00 100.2 F H 79 20 127/66 99 01/19/24 12:00 71 01/19/24 14:36 71 94 Mechanical Ventilation 30 01/19/24 14:39 70 22 H 01/19/24 14:38 70 22 H 01/19/24 14:30 70 144/79 H 01/19/24 14:05 98.8 F 81 22 H 128/68 98 01/19/24 13:50 81 22 H 01/19/24 13:50 81 22 H 01/19/24 13:50 99.0 F 81 22 H 132/70 98 01/19/24 13:30 741 H 137/72 01/19/24 13:00 82 136/72 01/19/24 12:56 99.1 F 82 22 H 135/72 94 01/19/24 12:00 71 126/68 01/19/24 11:56 99.4 F 72 22 H 135/73 95 01/19/24 11:55 70 136/72 01/19/24 11:50 84 141/77 H 01/19/24 11:33 73 95 Mechanical Ventilation 30 01/19/24 11:45 85 140/77 01/19/24 11:41 99.4 F 85 22 H 141/78 H 95 Intake/Output Intake/Output: Intake & Output 01/17/24 01/18/24 01/19/24 01/20/24 23:59 23:59 23:59 23:59 Intake Total 4514.6 6609.8 5378.0 1178.9 Output Total 224 647 7920 125 Balance 4374.6 6409.8 4243.0 1053.9 Meds/Results Medications: Active Medications Generic Name Dose Route Start Last Admin Trade Name Freq PRN Reason Stop Dose Admin Dextrose 12.5 gm 01/20/24 08:35 Dextrose 50% 25 Gm/50 Ml Syringe IV PUSH PRN PRN Hypoglycemia Protocol Epoetin Brent-epbx 10,000 units 01/20/24 20:00 01/20/24 10:22 Epoetin Brent-Epbx 10,000 Units/Ml Vial IV PUSH 01/20/24 20:01 10,000 units ONCE ONE Administration Glucagon 1 mg 01/20/24 08:35 Glucagon For Inj 1 Mg Vial IM PRN PRN Hypoglycemia Protocol Glucose 15 gm 01/20/24 08:35 Glucose Oral Gel 15 Gm Of Glucse In 37.5 Gm Tube PO PRN PRN Hypoglycemia Protocol Hydrocortisone Sodium Succinate 100 mg 01/20/24 09:00 01/20/24 09:07 Hydrocortisone Sodium Succinate 100 Mg/2 Ml Vial IV PUSH 100 mg QAM TANNA Administration Norepinephrine Bitartrate 8 mg in 250 mls @ 0 mls/hr 01/17/24 13:00 01/20/24 10:00 Levophed 8 Mg/D5w 250 Ml IV CONT 0 mcg/min .Q0M TANNA 0 mls/hr Titration Protocol 0 MCG/MIN Fentanyl Citrate 2,500 mcg in 250 mls @ 5 mls/hr 01/17/24 22:35 01/20/24 10:00 Fentanyl 2,500 Mcg/Ns 250 Ml IV CONT 50 mcg/hr .Q50H TANNA 5 mls/hr Titration Protocol 50 MCG/HR Midazolam HCl 100 mg in 100 mls @ 2 mls/hr 01/17/24 22:35 01/20/24 10:00 Versed 100 Mg/Ns 100 Ml IV CONT 2 mg/hr .Q50H TANNA 2 mls/hr Titration Protocol 2 MG/HR Aztreonam 1 gm/ Sodium 50 mls @ 100 mls/hr 01/19/24 18:00 01/20/24 06:41 Chloride IVPB Infused Q12H TANNA Infusion Albumin Human 50 mls @ 999 mls/hr 01/19/24 12:02 Albutein IVPB 02/18/24 12:01 Q10M PRN HYPOTENSION Dextrose 1,000 mls @ 100 mls/hr 01/20/24 08:35 Dextrose 5% 1,000 Ml IVPB PRN PRN Hypoglycemia Protocol Insulin Aspart 2 - 5 units 01/20/24 08:35 01/20/24 09:07 Insulin Aspart (*Bkc) 100 Units/Ml SUB-Q Not Given Q4H TANNA Protocol Multi-Ingred Cream/Lotion/Oil/Oint 1 applic 01/18/24 09:00 01/20/24 08:12 Mineral Oil/White Petrolatum Ointment EACH EYE 1 applic Q12HR TANNA Administration Nabumetone 750 mg 01/17/24 21:00 Nabumetone 750 Mg Tablet PO Q12HR TANNA Ondansetron HCl 4 mg 01/17/24 12:42 01/17/24 12:51 Ondansetron Inj 4 Mg/2 Ml Vial IV PUSH 4 mg Q4H PRN Administration Nausea Pantoprazole Sodium 40 mg 01/19/24 09:00 01/20/24 08:12 Pantoprazole Sodium Iv 40 Mg Vial IV PUSH 40 mg Q12HR TANNA Administration Sodium Chloride 10 ml 01/17/24 22:00 01/20/24 06:11 Central Line Flush IV PUSH 10 ml Q8HR TANNA Administration Sodium Chloride 20 ml 01/17/24 16:51 Central Line Flush IV PUSH PRN PRN after blood draws Tolnaftate 1 applic 01/20/24 09:00 01/20/24 09:07 Tolnaftate 1% Powder 45 Gm Btl TOPICAL 1 applic Q12HR TANNA Administration Radiology Results: ITS Impressions Abdomen/Pelvis CT 01/17/24 10:23 IMPRESSION: 1. 11 mm stone at right ureteropelvic junction with mild right hydronephrosis. 2. 1 mm nonobstructing left kidney stone. 3. 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 Ureter Stent X-Ray 01/17/24 15:20 IMPRESSION: 1. Persistent stone at the right ureteropelvic junction with placement of a right internal ureteral stent in expected position. Is unclear the stone has been removed on the final image and would correlate with procedure note for further detail. Renal Ultrasound 01/17/24 19:03 IMPRESSION: 1. 7.2 cm left renal cyst. Otherwise normal kidneys with no hydronephrosis. Abdomen X-Ray 01/17/24 23:21 IMPRESSION: 1. Endotracheal tube and nasogastric tube in expected positions as detailed above. 2. Unchanged mild elevation of the right hemidiaphragm with streaky atelectasis versus less likely pneumonia at the bilateral lower lung zones. Chest/Abdomen/Pelvis CT 01/19/24 09:48 IMPRESSION: 1. Patchy airspace opacities in right lung upper lobe, consistent with atelectasis versus pneumonia. 2. Small pleural effusions, right worse than left. 3. Small volume of ascites. 4. 8 mm stone in right renal pelvis with right internal ureteral stent in expected position. 5. 2 mm nonobstructing left kidney stone. Chest X-Ray 01/20/24 06:12 IMPRESSION: 1. Stable airspace opacities in the lower lung zones, consistent with atelectasis versus pneumonia. 2. Small pleural effusions. 3. Cardiomegaly. Labs Labs: Laboratory Tests 01/20/24 06:24 01/20/24 06:24 Calcium 7.0 L Phosphorus 2.5 Magnesium 1.8 Total Bilirubin 2.9 H AST 483 H ALT 360 H Alkaline Phosphatase 162 H Total Protein 5.0 L Albumin 3.0 L Microbiology 01/17/24 10:36 Clean Catch Midstream Urine Culture - Final Klebsiella pneumoniae
--- NOTE | 2024-01-20 10:36 | PCNFU ---
Nutrition Follow-Up Complete: Predicted suboptimal energy intake as related to mechanical vent as evidenced by NPO goal: Meet estimated nutritional needs Patient is progressing towards goal. We will continue current goal. Pt current nutrition is Nepro at 20 ml/hr. Nutrition recommendation: goal rate at 40 ml/hr. Last recorded weight is 130.3 kg, up from 108.4 kg on admit. Bowel Motility: +BM reported 01/19 Labs Reviewed:Glu 162, Cr 2.8,GFR 16, Na 133 Meds Noted: Versed, Fentanyl, Protonix Skin: WNL Additional Notes: Patient remains on mechanical vent. Tube feedings to start today of Nepro at 20 ml/hr. Recommend goal rate of tube feedings at 40 ml/hr with water flush 30 ml q 4 hours. Plans for Dialysis again today, 1 liter removed 01/18. Agree with diet orders. Will follow in ICU rounds and monitor weight labs, skin, oral intake, meds every Tuesday and Tuesday.
[2024-01-20 10:54] LABS: Hepatitis B Core Ab Total NON-REACTIVE (NON-REACTIVE)
[2024-01-20 11:09] LABS: Lactic Acid 2.5 mmol/L (0.7-2.0)
[2024-01-20 11:50] LABS: Glucose Point of Care 101 mg/dl (65-105)
--- NOTE | 2024-01-20 14:22 | P.PN_ITS ---
Progress Note: A&P Assessment and Plan (1) Septic shock: Code(s): A41.9 - Sepsis, unspecified organism; R65.21 - Severe sepsis with septic shock Status: Acute Assessment and Plan: Septic shock secondary to urosepsis. Possible pneumonia may be contributing as well. Peers the bowel was no longer ischemic as she would not be improving in terms of her acidosis and being weaned off of pressors if she was still having ischemic bowel issues. She does likely have an ileus due to her critical illness and being on a ventilator. Agree with starting trophic tube feeds per the nasogastric to. She is on hemodialysis now due to acute renal failure. Nephrology is managing that. Consider TPN if she is unable to tolerate tube feeds with large residuals because of ileus. No need for surgical management at this time. We will continue to follow peripherally. (2) Ileus: Code(s): K56.7 - Ileus, unspecified Status: Acute Subjective Date/time seen: 01/20/24 14:22 Interval history: Patient remains intubated and sedated. Pressors have been weaned off however. She did receive dialysis and they got on 3L of fluid. 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 [address]. Platelet count is up to 86,000 after platelet transfusion. Lactic acid level is down to 2.5. Total bilirubin is 2.9 AST 43 and ALT 360. Albumin is 3.0. Exam GI: Other: Abdomen is obese but soft. Does not appear to be particularly distended. Unable to elicit any tenderness due the patient being sedated. Objective Data Vital Signs Vital Signs: Vital Signs - 24 hr 01/19/24 14:30 01/19/24 14:38 01/19/24 14:39 Temperature Pulse Rate 70 70 70 Respiratory Rate 22 H 22 H Blood Pressure 144/79 H Pulse Oximetry Oxygen Delivery Fraction of Inspired Oxygen 01/19/24 14:36 01/19/24 15:00 01/19/24 15:54 Temperature 38.2 C H Pulse Rate 71 76 Respiratory Rate 20 Blood Pressure 107/41 L Pulse Oximetry 94 99 Oxygen Delivery Mechanical Ventilation Fraction of Inspired Oxygen 30 30 01/19/24 15:54 01/19/24 16:00 01/19/24 16:00 Temperature 37.0 C Pulse Rate 79 80 78 Respiratory Rate 22 H Blood Pressure 142/75 H 136/71 Pulse Oximetry Oxygen Delivery Fraction of Inspired Oxygen 01/19/24 16:00 01/19/24 16:00 01/19/24 16:00 Temperature 37.1 C Pulse Rate 79 77 78 Respiratory Rate 22 H 22 H Blood Pressure 133/67 136/68 Pulse Oximetry 91 Oxygen Delivery Fraction of Inspired Oxygen 01/19/24 16:00 01/19/24 16:15 01/19/24 16:43 Temperature Pulse Rate 78 79 78 Respiratory Rate 22 H Blood Pressure 131/67 135/66 Pulse Oximetry Oxygen Delivery Fraction of Inspired Oxygen 01/19/24 16:30 01/19/24 17:00 01/19/24 16:45 Temperature Pulse Rate 79 78 78 Respiratory Rate Blood Pressure 135/67 135/64 134/65 Pulse Oximetry Oxygen Delivery Fraction of Inspired Oxygen 01/19/24 17:15 01/19/24 17:30 01/19/24 17:45 Temperature Pulse Rate 78 78 68 Respiratory Rate Blood Pressure 138/65 138/67 135/61 Pulse Oximetry Oxygen Delivery Fraction of Inspired Oxygen 01/19/24 16:58 01/19/24 18:00 01/19/24 18:10 Temperature Pulse Rate 79 76 77 Respiratory Rate Blood Pressure 139/63 139/64 Pulse Oximetry 92 Oxygen Delivery Mechanical Ventilation Fraction of Inspired Oxygen 30 01/19/24 18:15 01/19/24 17:00 01/19/24 18:00 Temperature 37.1 C 37.1 C Pulse Rate 76 76 75 Respiratory Rate 22 H 22 H Blood Pressure 132/62 124/54 L 125/52 L Pulse Oximetry 91 90 Oxygen Delivery Fraction of Inspired Oxygen 01/19/24 18:00 01/19/24 18:30 01/19/24 18:00 Temperature Pulse Rate 74 75 74 Respiratory Rate 22 H Blood Pressure 125/54 L Pulse Oximetry Oxygen Delivery Fraction of Inspired Oxygen 01/19/24 18:00 01/19/24 16:00 01/19/24 16:00 Temperature Pulse Rate 74 79 Respiratory Rate 22 H 22 H Blood Pressure Pulse Oximetry 93 Oxygen Delivery Mechanical Ventilation Fraction of Inspired Oxygen 30 30 01/19/24 18:00 01/19/24 19:09 01/19/24 18:15 Temperature 37.1 C Pulse Rate 76 74 77 Respiratory Rate 22 H Blood Pressure 138/63 130/58 L 134/60 Pulse Oximetry Oxygen Delivery Fraction of Inspired Oxygen 01/19/24 18:30 01/19/24 18:45 01/19/24 19:00 Temperature Pulse Rate 76 75 75 Respiratory Rate Blood Pressure 127/55 L 124/54 L 123/55 L Pulse Oximetry Oxygen Delivery Fraction of Inspired Oxygen 01/19/24 20:27 01/19/24 20:00 01/19/24 20:00 Temperature Pulse Rate 75 78 78 Respiratory Rate 22 H Blood Pressure 138/63 Pulse Oximetry 95 Oxygen Delivery Mechanical Ventilation Fraction of Inspired Oxygen 30 01/19/24 20:00 01/19/24 20:00 01/19/24 19:00 Temperature 37.1 C Pulse Rate 78 78 74 Respiratory Rate 22 H 22 H Blood Pressure 138/63 124/53 L Pulse Oximetry 90 Oxygen Delivery Fraction of Inspired Oxygen 01/19/24 20:00 01/19/24 20:00 01/19/24 20:00 Temperature 36.9 C Pulse Rate 78 79 78 Respiratory Rate 22 H 22 H Blood Pressure 138/63 Pulse Oximetry 93 93 Oxygen Delivery Mechanical Ventilation Fraction of Inspired Oxygen 30 01/19/24 20:00 01/19/24 21:00 01/19/24 22:00 Temperature 36.9 C 37.0 C Pulse Rate 74 79 Respiratory Rate 22 H 22 H Blood Pressure 140/61 138/62 Pulse Oximetry 93 94 Oxygen Delivery Fraction of Inspired Oxygen 30 01/19/24 22:00 01/19/24 23:26 01/20/24 00:14 Temperature Pulse Rate 79 80 83 Respiratory Rate 22 H Blood Pressure Pulse Oximetry 93 Oxygen Delivery Mechanical Ventilation Fraction of Inspired Oxygen 40 01/20/24 00:14 01/20/24 00:00 01/20/24 00:00 Temperature Pulse Rate 83 80 Respiratory Rate 88 H Blood Pressure Pulse Oximetry Oxygen Delivery Fraction of Inspired Oxygen 30 01/20/24 00:00 01/19/24 23:00 01/20/24 00:00 Temperature 37.1 C 37.2 C Pulse Rate 82 82 82 Respiratory Rate 22 H 22 H 22 H Blood Pressure 144/66 H 163/72 H Pulse Oximetry 94 90 94 Oxygen Delivery Mechanical Ventilation Fraction of Inspired Oxygen 30 01/20/24 01:00 01/19/24 22:00 01/20/24 00:00 Temperature 37.3 C Pulse Rate 81 79 82 Respiratory Rate 22 H Blood Pressure 119/96 H 138/62 163/72 H Pulse Oximetry 94 Oxygen Delivery Fraction of Inspired Oxygen 01/19/24 22:00 01/20/24 00:00 01/19/24 22:00 Temperature Pulse Rate 79 82 79 Respiratory Rate 22 H 22 H 22 H Blood Pressure Pulse Oximetry Oxygen Delivery Fraction of Inspired Oxygen 01/20/24 00:00 01/20/24 02:00 01/20/24 02:00 Temperature Pulse Rate 82 83 83 Respiratory Rate 22 H Blood Pressure 134/87 Pulse Oximetry Oxygen Delivery Fraction of Inspired Oxygen 01/20/24 04:00 01/20/24 02:00 01/20/24 04:00 Temperature Pulse Rate 85 83 85 Respiratory Rate 22 H 22 H Blood Pressure 159/86 H Pulse Oximetry Oxygen Delivery Fraction of Inspired Oxygen 01/20/24 02:00 01/20/24 04:00 01/20/24 02:00 Temperature 37.4 C Pulse Rate 83 85 83 Respiratory Rate 22 H 22 H 22 H Blood Pressure 134/87 Pulse Oximetry 93 Oxygen Delivery Fraction of Inspired Oxygen 01/20/24 04:00 01/20/24 04:00 01/20/24 05:00 Temperature 37.7 C H Pulse Rate 85 84 Respiratory Rate 22 H 22 H Blood Pressure 144/79 H Pulse Oximetry 93 94 Oxygen Delivery Mechanical Ventilation Fraction of Inspired Oxygen 40 40 01/20/24 04:00 01/20/24 03:00 01/20/24 04:00 Temperature 37.6 C H 37.7 C H Pulse Rate 87 85 85 Respiratory Rate 22 H 22 H Blood Pressure 153/82 H 159/86 H Pulse Oximetry 93 93 Oxygen Delivery Fraction of Inspired Oxygen 01/20/24 05:17 01/20/24 02:30 01/20/24 06:00 Temperature Pulse Rate 85 84 85 Respiratory Rate Blood Pressure Pulse Oximetry 93 96 Oxygen Delivery Mechanical Ventilation Mechanical Ventilation Fraction of Inspired Oxygen 40 40 01/20/24 06:00 01/20/24 06:00 01/20/24 06:00 Temperature 37.7 C H Pulse Rate 85 85 85 Respiratory Rate 22 H 22 H Blood Pressure 120/99 H 120/99 H Pulse Oximetry 92 Oxygen Delivery Fraction of Inspired Oxygen 01/20/24 06:00 01/20/24 07:00 01/20/24 08:00 Temperature 37.5 C Pulse Rate 85 76 81 Respiratory Rate 22 H 20 Blood Pressure 91/49 L 153/88 H Pulse Oximetry 94 Oxygen Delivery Fraction of Inspired Oxygen 01/20/24 08:00 01/20/24 08:00 01/20/24 08:00 Temperature 37.3 C Pulse Rate 83 83 81 Respiratory Rate 22 H 22 H 22 H Blood Pressure 153/88 H Pulse Oximetry 94 Oxygen Delivery Fraction of Inspired Oxygen 01/20/24 08:33 01/20/24 08:51 01/20/24 08:51 Temperature 37.5 C Pulse Rate 81 Respiratory Rate Blood Pressure Pulse Oximetry 94 Oxygen Delivery Mechanical Ventilation Fraction of Inspired Oxygen 40 40 01/20/24 08:00 01/20/24 09:03 01/20/24 09:03 Temperature Pulse Rate 83 83 Respiratory Rate 18 18 Blood Pressure Pulse Oximetry Oxygen Delivery Mechanical Ventilation Fraction of Inspired Oxygen 40 01/20/24 09:00 01/20/24 08:00 01/20/24 09:44 Temperature 37.5 C Pulse Rate 83 79 71 Respiratory Rate 18 Blood Pressure 153/88 H 132/83 Pulse Oximetry 94 Oxygen Delivery Fraction of Inspired Oxygen 01/20/24 09:24 01/20/24 10:00 01/20/24 10:15 Temperature 37.5 C Pulse Rate 82 70 79 Respiratory Rate 18 Blood Pressure 151/85 H 143/82 H 144/82 H Pulse Oximetry 94 Oxygen Delivery Fraction of Inspired Oxygen 01/20/24 10:00 01/20/24 10:00 01/20/24 10:00 Temperature 37.6 C Pulse Rate 82 82 82 Respiratory Rate 18 18 Blood Pressure 143/82 H Pulse Oximetry 94 Oxygen Delivery Fraction of Inspired Oxygen 01/20/24 10:00 01/20/24 10:00 01/20/24 10:30 Temperature Pulse Rate 82 82 80 Respiratory Rate 18 Blood Pressure 143/82 H 147/76 H Pulse Oximetry Oxygen Delivery Fraction of Inspired Oxygen 01/20/24 10:45 01/20/24 11:00 01/20/24 11:15 Temperature Pulse Rate 80 80 80 Respiratory Rate Blood Pressure 143/80 H 141/80 H 149/81 H Pulse Oximetry Oxygen Delivery Fraction of Inspired Oxygen 01/20/24 11:30 01/20/24 11:45 01/20/24 12:00 Temperature Pulse Rate 81 81 77 Respiratory Rate Blood Pressure 149/81 H 145/82 H 154/83 H Pulse Oximetry Oxygen Delivery Fraction of Inspired Oxygen 01/20/24 12:15 01/20/24 13:00 01/20/24 11:27 Temperature Pulse Rate 79 80 79 Respiratory Rate Blood Pressure 154/89 H 151/80 H Pulse Oximetry 95 Oxygen Delivery Mechanical Ventilation Fraction of Inspired Oxygen 40 01/20/24 11:42 01/20/24 12:00 01/20/24 12:00 Temperature 37.5 C Pulse Rate 79 80 79 Respiratory Rate 18 18 18 Blood Pressure 154/83 H Pulse Oximetry 95 95 Oxygen Delivery Mechanical Ventilation Fraction of Inspired Oxygen 40 01/20/24 12:00 01/20/24 12:00 01/20/24 12:00 Temperature Pulse Rate 79 79 Respiratory Rate 18 Blood Pressure 154/83 H Pulse Oximetry Oxygen Delivery Fraction of Inspired Oxygen 40 01/20/24 12:00 01/20/24 12:30 01/20/24 13:38 Temperature Pulse Rate 79 78 81 Respiratory Rate Blood Pressure 147/86 H 155/83 H Pulse Oximetry Oxygen Delivery Fraction of Inspired Oxygen 01/20/24 12:45 01/20/24 13:16 01/20/24 13:26 Temperature 37.6 C Pulse Rate 81 79 80 Respiratory Rate 18 Blood Pressure 147/90 H 153/83 H 146/78 H Pulse Oximetry 95 Oxygen Delivery Fraction of Inspired Oxygen 01/20/24 14:00 01/20/24 14:00 Temperature 37.4 C Pulse Rate 78 79 Respiratory Rate 18 Blood Pressure 140/72 Pulse Oximetry 95 Oxygen Delivery Fraction of Inspired Oxygen Intake/Output Intake/Output: Intake & Output 01/17/24 01/18/24 01/19/24 01/20/24 23:59 23:59 23:59 23:59 Intake Total 4514.6 6609.8 5378.0 1292.9 Output Total 247 158 0132 3128 Balance 4374.6 6409.8 4243.0 -1835.1 Meds/Results Medications: Active Medications Generic Name Dose Route Start Last Admin Trade Name Freq PRN Reason Stop Dose Admin Dextrose 12.5 gm 01/20/24 08:35 Dextrose 50% 25 Gm/50 Ml Syringe IV PUSH PRN PRN Hypoglycemia Protocol Epoetin Brent-epbx 10,000 units 01/20/24 20:00 01/20/24 10:22 Epoetin Brent-Epbx 10,000 Units/Ml Vial IV PUSH 01/20/24 20:01 10,000 units ONCE ONE Administration Glucagon 1 mg 01/20/24 08:35 Glucagon For Inj 1 Mg Vial IM PRN PRN Hypoglycemia Protocol Glucose 15 gm 01/20/24 08:35 Glucose Oral Gel 15 Gm Of Glucse In 37.5 Gm Tube PO PRN PRN Hypoglycemia Protocol Hydrocortisone Sodium Succinate 100 mg 01/20/24 09:00 01/20/24 09:07 Hydrocortisone Sodium Succinate 100 Mg/2 Ml Vial IV PUSH 100 mg QAM TANNA Administration Fentanyl Citrate 2,500 mcg in 250 mls @ 5 mls/hr 01/17/24 22:35 01/20/24 12:00 Fentanyl 2,500 Mcg/Ns 250 Ml IV CONT 50 mcg/hr .Q50H TANNA 5 mls/hr Titration Protocol 50 MCG/HR Midazolam HCl 100 mg in 100 mls @ 2 mls/hr 01/17/24 22:35 01/20/24 12:00 Versed 100 Mg/Ns 100 Ml IV CONT 2 mg/hr .Q50H TANNA 2 mls/hr Titration Protocol 2 MG/HR Aztreonam 1 gm/ Sodium 50 mls @ 100 mls/hr 01/19/24 18:00 01/20/24 06:41 Chloride IVPB Infused Q12H TANNA Infusion Albumin Human 50 mls @ 999 mls/hr 01/19/24 12:02 Albutein IVPB 02/18/24 12:01 Q10M PRN HYPOTENSION Dextrose 1,000 mls @ 100 mls/hr 01/20/24 08:35 Dextrose 5% 1,000 Ml IVPB PRN PRN Hypoglycemia Protocol Insulin Aspart 2 - 5 units 01/20/24 08:35 01/20/24 11:51 Insulin Aspart (*Bkc) 100 Units/Ml SUB-Q Not Given Q4H TANNA Protocol Multi-Ingred Cream/Lotion/Oil/Oint 1 applic 01/18/24 09:00 01/20/24 08:12 Mineral Oil/White Petrolatum Ointment EACH EYE 1 applic Q12HR TANNA Administration Nabumetone 750 mg 01/17/24 21:00 Nabumetone 750 Mg Tablet PO Q12HR TANNA Ondansetron HCl 4 mg 01/17/24 12:42 01/17/24 12:51 Ondansetron Inj 4 Mg/2 Ml Vial IV PUSH 4 mg Q4H PRN Administration Nausea Pantoprazole Sodium 40 mg 01/19/24 09:00 01/20/24 08:12 Pantoprazole Sodium Iv 40 Mg Vial IV PUSH 40 mg Q12HR TANNA Administration Sodium Chloride 10 ml 01/17/24 22:00 01/20/24 13:35 Central Line Flush IV PUSH 10 ml Q8HR TANNA Administration Sodium Chloride 20 ml 01/17/24 16:51 Central Line Flush IV PUSH PRN PRN after blood draws Tolnaftate 1 applic 01/20/24 09:00 01/20/24 09:07 Tolnaftate 1% Powder 45 Gm Btl TOPICAL 1 applic Q12HR TANNA Administration Radiology Results: ITS Impressions Abdomen/Pelvis CT 01/17/24 10:23 IMPRESSION: 1. 11 mm stone at right ureteropelvic junction with mild right hydronephrosis. 2. 1 mm nonobstructing left kidney stone. 3. 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 Ureter Stent X-Ray 01/17/24 15:20 IMPRESSION: 1. Persistent stone at the right ureteropelvic junction with placement of a right internal ureteral stent in expected position. Is unclear the stone has been removed on the final image and would correlate with procedure note for further detail. Renal Ultrasound 01/17/24 19:03 IMPRESSION: 1. 7.2 cm left renal cyst. Otherwise normal kidneys with no hydronephrosis. Abdomen X-Ray 01/17/24 23:21 IMPRESSION: 1. Endotracheal tube and nasogastric tube in expected positions as detailed above. 2. Unchanged mild elevation of the right hemidiaphragm with streaky atelectasis versus less likely pneumonia at the bilateral lower lung zones. Chest/Abdomen/Pelvis CT 01/19/24 09:48 IMPRESSION: 1. Patchy airspace opacities in right lung upper lobe, consistent with atelectasis versus pneumonia. 2. Small pleural effusions, right worse than left. 3. Small volume of ascites. 4. 8 mm stone in right renal pelvis with right internal ureteral stent in expected position. 5. 2 mm nonobstructing left kidney stone. Chest X-Ray 01/20/24 06:12 IMPRESSION: 1. Stable airspace opacities in the lower lung zones, consistent with atelectasis versus pneumonia. 2. Small pleural effusions. 3. Cardiomegaly. Labs Labs: Laboratory Results - last 24 hr 01/19/24 01/19/24 01/19/24 05:30 18:02 18:03 WBC 31.8 H RBC 2.60 L Hgb 8.5 L Hct 24.5 L MCV 94.2 MCH 32.7 MCHC 34.7 RDW 14.2 Plt Count 126 L D MPV 11.2 H Immature Gran % (Auto) Neut % (Auto) Lymph % (Auto) [place] % (Auto) Eos % (Auto) Baso % (Auto) Lymph # (Auto) [place] # (Auto) Eos # (Auto) Baso # (Auto) Abs Immat Gran (auto) Absolute Neuts (auto) Absolute Nucleated RBC Total Counted Neutrophils % (Manual) Band Neutrophils % Lymphocytes % (Manual) Monocytes % (Manual) Metamyelocytes % Nucleated RBC % Abs Neuts (Manual) Abs Lymphs (Manual) Abs Monocytes (Manual) Platelet Estimate % Immature Plt Fraction 9.6 Hypochromasia Anisocytosis Schistocytes PT INR APTT Puncture Site ABG pH ABG pCO2 ABG pO2 ABG PO2/FiO2 Ratio ABG HCO3 ABG O2 Saturation ABG O2 Content ABG Base Excess A-a Gradient Oxyhemoglobin Carboxyhemoglobin Methemoglobin Reduced Hemoglobin Total Hemoglobin O2 Delivery Device O2 Liters/Min Minute Volume Vent Rate Vent Mode FiO2 Tidal Volume PEEP Peak Inspir Pressure Pressure Support Sodium Potassium Chloride Carbon Dioxide Anion Gap BUN Creatinine Estim Creat Clear Calc Estimated GFR Glucose POC Capillary Glucose 110 H Lactic Acid 4.4 H* Calcium Phosphorus Magnesium Total Bilirubin AST ALT Alkaline Phosphatase Total Protein Albumin Urine Eosinophils U Random Total Protein Ur Random Urea Urine Total Volume Urine Creatinine Protein/Creat Ratio 2 Random Vancomycin 19.1 Hep Bs Antigen Negative Hep Bs Antibody Negative Hep B Core Total Ab Non-reactive 01/19/24 01/19/24 01/19/24 18:05 18:05 18:05 WBC RBC Hgb Hct MCV MCH MCHC RDW Plt Count MPV Immature Gran % (Auto) Neut % (Auto) Lymph % (Auto) [place] % (Auto) Eos % (Auto) Baso % (Auto) Lymph # (Auto) [place] # (Auto) Eos # (Auto) Baso # (Auto) Abs Immat Gran (auto) Absolute Neuts (auto) Absolute Nucleated RBC Total Counted Neutrophils % (Manual) Band Neutrophils % Lymphocytes % (Manual) Monocytes % (Manual) Metamyelocytes % Nucleated RBC % Abs Neuts (Manual) Abs Lymphs (Manual) Abs Monocytes (Manual) Platelet Estimate % Immature Plt Fraction Hypochromasia Anisocytosis Schistocytes PT INR APTT Puncture Site ABG pH ABG pCO2 ABG pO2 ABG PO2/FiO2 Ratio ABG HCO3 ABG O2 Saturation ABG O2 Content ABG Base Excess A-a Gradient Oxyhemoglobin Carboxyhemoglobin Methemoglobin Reduced Hemoglobin Total Hemoglobin O2 Delivery Device O2 Liters/Min Minute Volume Vent Rate Vent Mode FiO2 Tidal Volume PEEP Peak Inspir Pressure Pressure Support Sodium Potassium Chloride Carbon Dioxide Anion Gap BUN Creatinine Estim Creat Clear Calc Estimated GFR Glucose POC Capillary Glucose Lactic Acid Calcium Phosphorus Magnesium Total Bilirubin AST ALT Alkaline Phosphatase Total Protein Albumin Urine Eosinophils None seen U Random Total Protein > 600 595 Ur Random Urea < 67 Urine Total Volume TNP Urine Creatinine 68.4 69.0 Protein/Creat Ratio 2 > 8.77 H Random Vancomycin Hep Bs Antigen Hep Bs Antibody Hep B Core Total Ab 01/19/24 01/19/24 01/19/24 20:42 20:49 21:49 WBC RBC Hgb Hct MCV MCH MCHC RDW Plt Count MPV Immature Gran % (Auto) Neut % (Auto) Lymph % (Auto) [place] % (Auto) Eos % (Auto) Baso % (Auto) Lymph # (Auto) [place] # (Auto) Eos # (Auto) Baso # (Auto) Abs Immat Gran (auto) Absolute Neuts (auto) Absolute Nucleated RBC Total Counted Neutrophils % (Manual) Band Neutrophils % Lymphocytes % (Manual) Monocytes % (Manual) Metamyelocytes % Nucleated RBC % Abs Neuts (Manual) Abs Lymphs (Manual) Abs Monocytes (Manual) Platelet Estimate % Immature Plt Fraction Hypochromasia Anisocytosis Schistocytes PT 20.2 H D INR 1.7 APTT Puncture Site ABG pH ABG pCO2 ABG pO2 ABG PO2/FiO2 Ratio ABG HCO3 ABG O2 Saturation ABG O2 Content ABG Base Excess A-a Gradient Oxyhemoglobin Carboxyhemoglobin Methemoglobin Reduced Hemoglobin Total Hemoglobin O2 Delivery Device O2 Liters/Min Minute Volume Vent Rate Vent Mode FiO2 Tidal Volume PEEP Peak Inspir Pressure Pressure Support Sodium Potassium Chloride Carbon Dioxide Anion Gap BUN Creatinine Estim Creat Clear Calc Estimated GFR Glucose POC Capillary Glucose 106 H Lactic Acid 5.2 H* Calcium Phosphorus Magnesium Total Bilirubin AST ALT Alkaline Phosphatase Total Protein Albumin Urine Eosinophils U Random Total Protein Ur Random Urea Urine Total Volume Urine Creatinine Protein/Creat Ratio 2 Random Vancomycin Hep Bs Antigen Hep Bs Antibody Hep B Core Total Ab 01/20/24 01/20/24 01/20/24 00:06 05:26 05:28 WBC RBC Hgb Hct MCV MCH MCHC RDW Plt Count MPV Immature Gran % (Auto) Neut % (Auto) Lymph % (Auto) [place] % (Auto) Eos % (Auto) Baso % (Auto) Lymph # (Auto) [place] # (Auto) Eos # (Auto) Baso # (Auto) Abs Immat Gran (auto) Absolute Neuts (auto) Absolute Nucleated RBC Total Counted Neutrophils % (Manual) Band Neutrophils % Lymphocytes % (Manual) Monocytes % (Manual) Metamyelocytes % Nucleated RBC % Abs Neuts (Manual) Abs Lymphs (Manual) Abs Monocytes (Manual) Platelet Estimate % Immature Plt Fraction Hypochromasia Anisocytosis Schistocytes PT INR APTT Puncture Site Artline ABG pH 7.590 H* ABG pCO2 24.4 L ABG pO2 78.1 L ABG PO2/FiO2 Ratio 1.95 ABG HCO3 22.9 ABG O2 Saturation 97.3 ABG O2 Content 11.0 L ABG Base Excess 1.5 A-a Gradient 179.0 Oxyhemoglobin 95.7 Carboxyhemoglobin 0.3 Methemoglobin 0.1 Reduced Hemoglobin 3.9 Total Hemoglobin 8.1 L O2 Delivery Device Ventilator O2 Liters/Min Not Reportable Minute Volume Not Reportable Vent Rate 22 Vent Mode Cmv FiO2 40 Tidal Volume 400 PEEP 8 Peak Inspir Pressure Not Reportable Pressure Support Not Reportable Sodium Potassium Chloride Carbon Dioxide Anion Gap BUN Creatinine Estim Creat Clear Calc Estimated GFR Glucose POC Capillary Glucose 146 H 159 H Lactic Acid Calcium Phosphorus Magnesium Total Bilirubin AST ALT Alkaline Phosphatase Total Protein Albumin Urine Eosinophils U Random Total Protein Ur Random Urea Urine Total Volume Urine Creatinine Protein/Creat Ratio 2 Random Vancomycin Hep Bs Antigen Hep Bs Antibody Hep B Core Total Ab 01/20/24 01/20/24 01/20/24 06:24 06:25 07:57 WBC 29.7 H RBC 2.65 L Hgb 8.7 L Hct 25.4 L MCV 95.8 MCH 32.8 MCHC 34.3 RDW 14.5 Plt Count 86 L MPV 12.0 H Immature Gran % (Auto) Not Reportable Neut % (Auto) Not Reportable Lymph % (Auto) Not Reportable [place] % (Auto) Not Reportable Eos % (Auto) Not Reportable Baso % (Auto) Not Reportable Lymph # (Auto) Not Reportable [place] # (Auto) Not Reportable Eos # (Auto) Not Reportable Baso # (Auto) Not Reportable Abs Immat Gran (auto) Not Reportable Absolute Neuts (auto) Not Reportable Absolute Nucleated RBC Not Reportable Total Counted 100 Neutrophils % (Manual) 72 Band Neutrophils % 15 H Lymphocytes % (Manual) 7.0 L Monocytes % (Manual) 4 Metamyelocytes % 2 Nucleated RBC % Not Reportable Abs Neuts (Manual) 25.83 H Abs Lymphs (Manual) 2.07 Abs Monocytes (Manual) 1.18 H Platelet Estimate Slightly decreased % Immature Plt Fraction 10.0 Hypochromasia 2+ Anisocytosis 1+ Schistocytes None seen PT 18.8 H INR 1.5 APTT 26.6 Puncture Site ABG pH ABG pCO2 ABG pO2 ABG PO2/FiO2 Ratio ABG HCO3 ABG O2 Saturation ABG O2 Content ABG Base Excess A-a Gradient Oxyhemoglobin Carboxyhemoglobin Methemoglobin Reduced Hemoglobin Total Hemoglobin O2 Delivery Device O2 Liters/Min Minute Volume Vent Rate Vent Mode FiO2 Tidal Volume PEEP Peak Inspir Pressure Pressure Support Sodium 133 L Potassium 3.6 Chloride 86 L Carbon Dioxide 35 H Anion Gap 12 BUN 32 H Creatinine 2.80 H Estim Creat Clear Calc 19 Estimated GFR 16 L Glucose 162 H POC Capillary Glucose 96 Lactic Acid 4.6 H* Calcium 7.0 L Phosphorus 2.5 Magnesium 1.8 Total Bilirubin 2.9 H AST 483 H ALT 360 H Alkaline Phosphatase 162 H Total Protein 5.0 L Albumin 3.0 L Urine Eosinophils U Random Total Protein Ur Random Urea Urine Total Volume Urine Creatinine Protein/Creat Ratio 2 Random Vancomycin Hep Bs Antigen Hep Bs Antibody Hep B Core Total Ab 01/20/24 01/20/24 01/20/24 08:00 10:40 11:46 WBC RBC Hgb Hct MCV MCH MCHC RDW Plt Count MPV Immature Gran % (Auto) Neut % (Auto) Lymph % (Auto) [place] % (Auto) Eos % (Auto) Baso % (Auto) Lymph # (Auto) [place] # (Auto) Eos # (Auto) Baso # (Auto) Abs Immat Gran (auto) Absolute Neuts (auto) Absolute Nucleated RBC Total Counted Neutrophils % (Manual) Band Neutrophils % Lymphocytes % (Manual) Monocytes % (Manual) Metamyelocytes % Nucleated RBC % Abs Neuts (Manual) Abs Lymphs (Manual) Abs Monocytes (Manual) Platelet Estimate % Immature Plt Fraction Hypochromasia Anisocytosis Schistocytes PT INR APTT Puncture Site ABG pH ABG pCO2 ABG pO2 ABG PO2/FiO2 Ratio ABG HCO3 ABG O2 Saturation ABG O2 Content ABG Base Excess A-a Gradient Oxyhemoglobin Carboxyhemoglobin Methemoglobin Reduced Hemoglobin Total Hemoglobin O2 Delivery Device O2 Liters/Min Minute Volume Vent Rate Vent Mode FiO2 Tidal Volume PEEP Peak Inspir Pressure Pressure Support Sodium Potassium Chloride Carbon Dioxide Anion Gap BUN Creatinine Estim Creat Clear Calc Estimated GFR Glucose POC Capillary Glucose 101 Lactic Acid 2.5 H Calcium Phosphorus Magnesium Total Bilirubin AST ALT Alkaline Phosphatase Total Protein Albumin Urine Eosinophils U Random Total Protein Ur Random Urea Urine Total Volume Urine Creatinine Protein/Creat Ratio 2 Random Vancomycin 22.9 H Hep Bs Antigen Hep Bs Antibody Hep B Core Total Ab
[2024-01-20 15:54] LABS: Glucose Point of Care 154 mg/dl (65-105)
--- NOTE | 2024-01-20 16:49 | P.PN_ITS ---
Progress Note: A&P Assessment and Plan (1) Septic shock: Code(s): A41.9 - Sepsis, unspecified organism; R65.21 - Severe sepsis with septic shock Status: Acute Assessment and Plan: The patient meets criteria for septic shock with refractory hypotension, acute kidney injury, leukocytosis with bandemia, tachypnea, tachycardia, and fever. Source is urinary tract infection related to obstructing ureteral stone. * Central line inserted 01/17/2024 per anesthesiologist. * Currently on norepinephrine, vasopressin, and phenylephrine. * Maintain SBP > 95 and MAP > 65 for adequate end-organ perfusion. * Add stress dose steroids, hydrocortisone 100 mg q.8 hours. * Continue aztreonam and vancomycin pending blood and urine cultures. (2) Urinary tract infection: Code(s): N39.0 - Urinary tract infection, site not specified Status: Acute Assessment and Plan: UTI secondary to obstructing stones. Urinalysis was positive for 3+ leukocyte esterase, > 100 WBC, and 4+ bacteria. * Receive ciprofloxacin 200 mg in the ED; she has multiple drug allergies. * Changed to aztreonam 1 g q.8 hours and vancomycin pending cultures. (3) Right ureteral stone: Code(s): N20.1 - Calculus of ureter Status: Acute Assessment and Plan: CT scan showed an 11 mm stone at the right ureteropelvic junction with mild right hydronephrosis. * Postoperative day 0 status post cystoscopy with ureteral stent placement. * Needs close follow-up with Dr. Gudino for definitive management pending resolution of infection. (4) Hydronephrosis: Code(s): N13.30 - Unspecified hydronephrosis Status: Acute Assessment and Plan: CT scan showed mild right hydronephrosis secondary to ureteral stone. * Status post cystoscopy and stent placement. (5) Acute kidney injury: Code(s): N17.9 - Acute kidney failure, unspecified Status: Acute Assessment and Plan: Due to a combination of obstructing stone, hypoperfusion from hypotension, and sepsis; she is also on thiazide and loop diuretics as well as NSAIDS. * Rocha catheter has been inserted for strict I/O with minimal output since surgery. * Continue judicious IV fluid rehydration with close monitoring of volume status. * Renally dose all medications and hold nephrotoxic agents. * Renal ultrasound has been ordered for a.m. (6) Acute respiratory failure: Code(s): J96.00 - Acute respiratory failure, unspecified whether with hypoxia or hypercapnia Status: Acute Assessment and Plan: Patient is tachypneic and hypoxic due to acidosis. Chest x-ray is clear. * ABG shows concomitant metabolic and respiratory acidosis. * Patient was started on Vapotherm with some improvement but deteriorated and was subsequently intubated. * Currently on CMV with a tidal volume of 350, rate 24, peep 5. * Sedation with very low-dose fentanyl (patient reports significant nausea and vomiting) and midazolam. (7) Electrolyte abnormality: Code(s): E87.8 - Other disorders of electrolyte and fluid balance, not elsewhere classified Status: Acute Assessment and Plan: Patient has several electrolyte abnormalities including hypocalcemia and hypomagnesemia. * Calcium and magnesium will be replaced and monitored closely. (8) Hypertension: Code(s): I10 - Essential (primary) hypertension Status: Acute Assessment and Plan: She has refractory hypotension is currently on vasopressors as above. * Continue to hold antihypertensives. Plan on 01/16 patient was seen by her urologist for infected stone and had cystoscopy and right ureteral stent placement emergently, and was found to have UTI- pyelonephritis, Patient was started on broad-spectrum antibiotics. patient went to sepsis with hypotension was started on vasopressin, norepinephrine and fluids, patient condition was worsening and patient was intubated. on 01/17 custom miller spoke with the patient's family and recommended to add another pressor and also discussed the long-term care and family has decided to place the patient DNR. patient clinical symptoms are improving her BP is trending up and currently requiring only one pressure, however her Sr Cr remains elevated suspect ATN 2/2 hypotension, patient have temporary dialysis to improver her kidney function, also there was concern that patient may have injury her intestine, CT scan of abdomen did not show any perforation and seen by general surgeon does not suspect patient has any perforation however there is likelihood of ischemic bowl possibly 2/2 hypoperfusion. we appreciate custom miller, will continue to monitor and follow the patient. Subjective Date/time seen: 01/20/24 16:49 Interval history: on 01/16 patient was seen by her urologist for infected stone and had cystoscopy and right ureteral stent placement emergently, and was found to have UTI- pyelonephritis, Patient was started on broad-spectrum antibiotics. patient went to sepsis with hypotension was started on vasopressin, norepinephrine and fluids, patient condition was worsening and patient was intubated. on 01/17 custom miller spoke with the patient's family and recommended to add another pressor and also discussed the long-term care and family has decided to place the patient DNR. patient clinical symptoms are improving her BP is trending up and currently requiring only one pressure, however her Sr Cr remains elevated suspect ATN 2/2 hypotension, patient have temporary dialysis to improver her kidney function, also there was concern that patient may have injury her intestine, CT scan of abdomen did not show any perforation and seen by general surgeon does not suspect patient has any perforation however there is likelihood of ischemic bowl possibly 2/2 hypoperfusion. we appreciate custom miller, will continue to monitor and follow the patient. Review of Systems Review of Systems: ROS unobtainable: Yes unobtainable due to mental status Exam Narrative: Morbidly obese Patient is comfortable, NAD HEENT: ET tube in place LUNGS:CTA HEART: RR S1S2 ABD: BS+, Soft and nontender Lower extremities: no edema SKIN: nonjaundiced Neuro: On vent and sedated. Objective Data Vital Signs Vital Signs: Vital Signs - 24 hr 01/19/24 17:00 01/19/24 17:15 01/19/24 17:30 Temperature Pulse Rate 78 78 78 Respiratory Rate Blood Pressure 135/64 138/65 138/67 Pulse Oximetry Oxygen Delivery Fraction of Inspired Oxygen 01/19/24 17:45 01/19/24 16:58 01/19/24 18:00 Temperature Pulse Rate 68 79 76 Respiratory Rate Blood Pressure 135/61 139/63 Pulse Oximetry 92 Oxygen Delivery Mechanical Ventilation Fraction of Inspired Oxygen 30 01/19/24 18:10 01/19/24 18:15 01/19/24 17:00 Temperature 37.1 C Pulse Rate 77 76 76 Respiratory Rate 22 H Blood Pressure 139/64 132/62 124/54 L Pulse Oximetry 91 Oxygen Delivery Fraction of Inspired Oxygen 01/19/24 18:00 01/19/24 18:00 01/19/24 18:30 Temperature 37.1 C Pulse Rate 75 74 75 Respiratory Rate 22 H Blood Pressure 125/52 L 125/54 L Pulse Oximetry 90 Oxygen Delivery Fraction of Inspired Oxygen 01/19/24 18:00 01/19/24 18:00 01/19/24 18:00 Temperature Pulse Rate 74 74 76 Respiratory Rate 22 H 22 H Blood Pressure 138/63 Pulse Oximetry Oxygen Delivery Fraction of Inspired Oxygen 01/19/24 19:09 01/19/24 18:15 01/19/24 18:30 Temperature 37.1 C Pulse Rate 74 77 76 Respiratory Rate 22 H Blood Pressure 130/58 L 134/60 127/55 L Pulse Oximetry Oxygen Delivery Fraction of Inspired Oxygen 01/19/24 18:45 01/19/24 19:00 01/19/24 20:27 Temperature Pulse Rate 75 75 75 Respiratory Rate Blood Pressure 124/54 L 123/55 L Pulse Oximetry 95 Oxygen Delivery Mechanical Ventilation Fraction of Inspired Oxygen 30 01/19/24 20:00 01/19/24 20:00 01/19/24 20:00 Temperature Pulse Rate 78 78 78 Respiratory Rate 22 H Blood Pressure 138/63 138/63 Pulse Oximetry Oxygen Delivery Fraction of Inspired Oxygen 01/19/24 20:00 01/19/24 19:00 01/19/24 20:00 Temperature 37.1 C 36.9 C Pulse Rate 78 74 78 Respiratory Rate 22 H 22 H 22 H Blood Pressure 124/53 L 138/63 Pulse Oximetry 90 93 Oxygen Delivery Fraction of Inspired Oxygen 01/19/24 20:00 01/19/24 20:00 01/19/24 20:00 Temperature Pulse Rate 79 78 Respiratory Rate 22 H Blood Pressure Pulse Oximetry 93 Oxygen Delivery Mechanical Ventilation Fraction of Inspired Oxygen 30 30 01/19/24 21:00 01/19/24 22:00 01/19/24 22:00 Temperature 36.9 C 37.0 C Pulse Rate 74 79 79 Respiratory Rate 22 H 22 H Blood Pressure 140/61 138/62 Pulse Oximetry 93 94 Oxygen Delivery Fraction of Inspired Oxygen 01/19/24 23:26 01/20/24 00:14 01/20/24 00:14 Temperature Pulse Rate 80 83 83 Respiratory Rate 22 H 88 H Blood Pressure Pulse Oximetry 93 Oxygen Delivery Mechanical Ventilation Fraction of Inspired Oxygen 40 01/20/24 00:00 01/20/24 00:00 01/20/24 00:00 Temperature Pulse Rate 80 82 Respiratory Rate 22 H Blood Pressure Pulse Oximetry 94 Oxygen Delivery Mechanical Ventilation Fraction of Inspired Oxygen 30 30 01/19/24 23:00 01/20/24 00:00 01/20/24 01:00 Temperature 37.1 C 37.2 C 37.3 C Pulse Rate 82 82 81 Respiratory Rate 22 H 22 H 22 H Blood Pressure 144/66 H 163/72 H 119/96 H Pulse Oximetry 90 94 94 Oxygen Delivery Fraction of Inspired Oxygen 01/19/24 22:00 01/20/24 00:00 01/19/24 22:00 Temperature Pulse Rate 79 82 79 Respiratory Rate 22 H Blood Pressure 138/62 163/72 H Pulse Oximetry Oxygen Delivery Fraction of Inspired Oxygen 01/20/24 00:00 01/19/24 22:00 01/20/24 00:00 Temperature Pulse Rate 82 79 82 Respiratory Rate 22 H 22 H 22 H Blood Pressure Pulse Oximetry Oxygen Delivery Fraction of Inspired Oxygen 01/20/24 02:00 01/20/24 02:00 01/20/24 04:00 Temperature Pulse Rate 83 83 85 Respiratory Rate Blood Pressure 134/87 159/86 H Pulse Oximetry Oxygen Delivery Fraction of Inspired Oxygen 01/20/24 02:00 01/20/24 04:00 01/20/24 02:00 Temperature Pulse Rate 83 85 83 Respiratory Rate 22 H 22 H 22 H Blood Pressure Pulse Oximetry Oxygen Delivery Fraction of Inspired Oxygen 01/20/24 04:00 01/20/24 02:00 01/20/24 04:00 Temperature 37.4 C Pulse Rate 85 83 Respiratory Rate 22 H 22 H Blood Pressure 134/87 Pulse Oximetry 93 Oxygen Delivery Fraction of Inspired Oxygen 40 01/20/24 04:00 01/20/24 05:00 01/20/24 04:00 Temperature 37.7 C H Pulse Rate 85 84 87 Respiratory Rate 22 H 22 H Blood Pressure 144/79 H Pulse Oximetry 93 94 Oxygen Delivery Mechanical Ventilation Fraction of Inspired Oxygen 40 01/20/24 03:00 01/20/24 04:00 01/20/24 05:17 Temperature 37.6 C H 37.7 C H Pulse Rate 85 85 85 Respiratory Rate 22 H 22 H Blood Pressure 153/82 H 159/86 H Pulse Oximetry 93 93 93 Oxygen Delivery Mechanical Ventilation Fraction of Inspired Oxygen 40 01/20/24 02:30 01/20/24 06:00 01/20/24 06:00 Temperature 37.7 C H Pulse Rate 84 85 85 Respiratory Rate 22 H Blood Pressure 120/99 H Pulse Oximetry 96 92 Oxygen Delivery Mechanical Ventilation Fraction of Inspired Oxygen 40 01/20/24 06:00 01/20/24 06:00 01/20/24 06:00 Temperature Pulse Rate 85 85 85 Respiratory Rate 22 H 22 H Blood Pressure 120/99 H Pulse Oximetry Oxygen Delivery Fraction of Inspired Oxygen 01/20/24 07:00 01/20/24 08:00 01/20/24 08:00 Temperature 37.5 C Pulse Rate 76 81 83 Respiratory Rate 20 22 H Blood Pressure 91/49 L 153/88 H Pulse Oximetry 94 Oxygen Delivery Fraction of Inspired Oxygen 01/20/24 08:00 01/20/24 08:00 01/20/24 08:33 Temperature 37.3 C Pulse Rate 83 81 81 Respiratory Rate 22 H 22 H Blood Pressure 153/88 H Pulse Oximetry 94 94 Oxygen Delivery Mechanical Ventilation Fraction of Inspired Oxygen 40 01/20/24 08:51 01/20/24 08:51 01/20/24 08:00 Temperature 37.5 C Pulse Rate Respiratory Rate Blood Pressure Pulse Oximetry Oxygen Delivery Mechanical Ventilation Fraction of Inspired Oxygen 40 40 01/20/24 09:03 01/20/24 09:03 01/20/24 09:00 Temperature 37.5 C Pulse Rate 83 83 83 Respiratory Rate 18 18 18 Blood Pressure 153/88 H Pulse Oximetry 94 Oxygen Delivery Fraction of Inspired Oxygen 01/20/24 08:00 01/20/24 09:44 01/20/24 09:24 Temperature 37.5 C Pulse Rate 79 71 82 Respiratory Rate 18 Blood Pressure 132/83 151/85 H Pulse Oximetry 94 Oxygen Delivery Fraction of Inspired Oxygen 01/20/24 10:00 01/20/24 10:15 01/20/24 10:00 Temperature Pulse Rate 70 79 82 Respiratory Rate Blood Pressure 143/82 H 144/82 H Pulse Oximetry Oxygen Delivery Fraction of Inspired Oxygen 01/20/24 10:00 01/20/24 10:00 01/20/24 10:00 Temperature 37.6 C Pulse Rate 82 82 82 Respiratory Rate 18 18 18 Blood Pressure 143/82 H Pulse Oximetry 94 Oxygen Delivery Fraction of Inspired Oxygen 01/20/24 10:00 01/20/24 10:30 01/20/24 10:45 Temperature Pulse Rate 82 80 80 Respiratory Rate Blood Pressure 143/82 H 147/76 H 143/80 H Pulse Oximetry Oxygen Delivery Fraction of Inspired Oxygen 01/20/24 11:00 01/20/24 11:15 01/20/24 11:30 Temperature Pulse Rate 80 80 81 Respiratory Rate Blood Pressure 141/80 H 149/81 H 149/81 H Pulse Oximetry Oxygen Delivery Fraction of Inspired Oxygen 01/20/24 11:45 01/20/24 12:00 01/20/24 12:15 Temperature Pulse Rate 81 77 79 Respiratory Rate Blood Pressure 145/82 H 154/83 H 154/89 H Pulse Oximetry Oxygen Delivery Fraction of Inspired Oxygen 01/20/24 13:00 01/20/24 11:27 01/20/24 11:42 Temperature Pulse Rate 80 79 79 Respiratory Rate 18 Blood Pressure 151/80 H Pulse Oximetry 95 95 Oxygen Delivery Mechanical Ventilation Mechanical Ventilation Fraction of Inspired Oxygen 40 40 01/20/24 12:00 01/20/24 12:00 01/20/24 12:00 Temperature 37.5 C Pulse Rate 80 79 79 Respiratory Rate 18 18 18 Blood Pressure 154/83 H Pulse Oximetry 95 Oxygen Delivery Fraction of Inspired Oxygen 01/20/24 12:00 01/20/24 12:00 01/20/24 12:00 Temperature Pulse Rate 79 79 Respiratory Rate Blood Pressure 154/83 H Pulse Oximetry Oxygen Delivery Fraction of Inspired Oxygen 40 01/20/24 12:30 01/20/24 13:38 01/20/24 12:45 Temperature Pulse Rate 78 81 81 Respiratory Rate Blood Pressure 147/86 H 155/83 H 147/90 H Pulse Oximetry Oxygen Delivery Fraction of Inspired Oxygen 01/20/24 13:16 01/20/24 13:26 01/20/24 14:00 Temperature 37.6 C Pulse Rate 79 80 78 Respiratory Rate 18 Blood Pressure 153/83 H 146/78 H Pulse Oximetry 95 Oxygen Delivery Fraction of Inspired Oxygen 01/20/24 14:00 01/20/24 14:43 01/20/24 14:00 Temperature 37.4 C Pulse Rate 79 83 82 Respiratory Rate 18 18 Blood Pressure 140/72 Pulse Oximetry 95 98 Oxygen Delivery Mechanical Ventilation Fraction of Inspired Oxygen 40 01/20/24 14:00 01/20/24 15:35 01/20/24 16:00 Temperature Pulse Rate 82 82 87 Respiratory Rate 18 18 18 Blood Pressure Pulse Oximetry 98 Oxygen Delivery Mechanical Ventilation Fraction of Inspired Oxygen 40 01/20/24 16:00 01/20/24 16:00 01/20/24 16:00 Temperature 37.4 C Pulse Rate 86 86 86 Respiratory Rate 18 18 Blood Pressure 154/75 H Pulse Oximetry 98 Oxygen Delivery Fraction of Inspired Oxygen 01/20/24 16:00 Temperature Pulse Rate Respiratory Rate Blood Pressure Pulse Oximetry Oxygen Delivery Fraction of Inspired Oxygen 40 Intake/Output Intake/Output: Intake & Output 01/17/24 01/18/24 01/19/24 01/20/24 23:59 23:59 23:59 23:59 Intake Total 4514.6 6609.8 5378.0 1385.9 Output Total 889 686 0167 3378 Balance 4374.6 6409.8 4243.0 -1992.1 Meds/Results Medications: Active Medications Generic Name Dose Route Start Last Admin Trade Name Freq PRN Reason Stop Dose Admin Dextrose 12.5 gm 01/20/24 08:35 Dextrose 50% 25 Gm/50 Ml Syringe IV PUSH PRN PRN Hypoglycemia Protocol Epoetin Brent-epbx 10,000 units 01/20/24 20:00 01/20/24 10:22 Epoetin Brent-Epbx 10,000 Units/Ml Vial IV PUSH 01/20/24 20:01 10,000 units ONCE ONE Administration Glucagon 1 mg 01/20/24 08:35 Glucagon For Inj 1 Mg Vial IM PRN PRN Hypoglycemia Protocol Glucose 15 gm 01/20/24 08:35 Glucose Oral Gel 15 Gm Of Glucse In 37.5 Gm Tube PO PRN PRN Hypoglycemia Protocol Hydrocortisone Sodium Succinate 100 mg 01/20/24 09:00 01/20/24 09:07 Hydrocortisone Sodium Succinate 100 Mg/2 Ml Vial IV PUSH 100 mg QAM TANNA Administration Fentanyl Citrate 2,500 mcg in 250 mls @ 5 mls/hr 01/17/24 22:35 01/20/24 1 6:00 Fentanyl 2,500 Mcg/Ns 250 Ml IV CONT 50 mcg/hr .Q50H TANNA 5 mls/hr Titration Protocol 50 MCG/HR Midazolam HCl 100 mg in 100 mls @ 2 mls/hr 01/17/24 22:35 01/20/24 16:00 Versed 100 Mg/Ns 100 Ml IV CONT 2 mg/hr .Q50H TANNA 2 mls/hr Titration Protocol 2 MG/HR Aztreonam 1 gm/ Sodium 50 mls @ 100 mls/hr 01/19/24 18:00 01/20/24 06:41 Chloride IVPB Infused Q12H TANNA Infusion Albumin Human 50 mls @ 999 mls/hr 01/19/24 12:02 Albutein IVPB 02/18/24 12:01 Q10M PRN HYPOTENSION Dextrose 1,000 mls @ 100 mls/hr 01/20/24 08:35 Dextrose 5% 1,000 Ml IVPB PRN PRN Hypoglycemia Protocol Insulin Aspart 2 - 5 units 01/20/24 08:35 01/20/24 15:57 Insulin Aspart (*Bkc) 100 Units/Ml SUB-Q Not Given Q4H TANNA Protocol Multi-Ingred Cream/Lotion/Oil/Oint 1 applic 01/18/24 09:00 01/20/24 08:12 Mineral Oil/White Petrolatum Ointment EACH EYE 1 applic Q12HR TANNA Administration Nabumetone 750 mg 01/17/24 21:00 Nabumetone 750 Mg Tablet PO Q12HR TANNA Ondansetron HCl 4 mg 01/17/24 12:42 01/17/24 12:51 Ondansetron Inj 4 Mg/2 Ml Vial IV PUSH 4 mg Q4H PRN Administration Nausea Pantoprazole Sodium 40 mg 01/19/24 09:00 01/20/24 08:12 Pantoprazole Sodium Iv 40 Mg Vial IV PUSH 40 mg Q12HR TANNA Administration Sodium Chloride 10 ml 01/17/24 22:00 01/20/24 13:35 Central Line Flush IV PUSH 10 ml Q8HR TANNA Administration Sodium Chloride 20 ml 01/17/24 16:51 Central Line Flush IV PUSH PRN PRN after blood draws Tolnaftate 1 applic 01/20/24 09:00 01/20/24 09:07 Tolnaftate 1% Powder 45 Gm Btl TOPICAL 1 applic Q12HR TANNA Administration Radiology Results: ITS Impressions Abdomen/Pelvis CT 01/17/24 10:23 IMPRESSION: 1. 11 mm stone at right ureteropelvic junction with mild right hydronephrosis. 2. 1 mm nonobstructing left kidney stone. 3. 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 Ureter Stent X-Ray 01/17/24 15:20 IMPRESSION: 1. Persistent stone at the right ureteropelvic junction with placement of a right internal ureteral stent in expected position. Is unclear the stone has been removed on the final image and would correlate with procedure note for further detail. Renal Ultrasound 01/17/24 19:03 IMPRESSION: 1. 7.2 cm left renal cyst. Otherwise normal kidneys with no hydronephrosis. Chest/Abdomen/Pelvis CT 01/19/24 09:48 IMPRESSION: 1. Patchy airspace opacities in right lung upper lobe, consistent with atelectasis versus pneumonia. 2. Small pleural effusions, right worse than left. 3. Small volume of ascites. 4. 8 mm stone in right renal pelvis with right internal ureteral stent in expected position. 5. 2 mm nonobstructing left kidney stone. Chest X-Ray 01/20/24 06:12 IMPRESSION: 1. Stable airspace opacities in the lower lung zones, consistent with atelectasis versus pneumonia. 2. Small pleural effusions. 3. Cardiomegaly. Abdomen X-Ray 01/20/24 14:55 IMPRESSION: 1. No dilated loops of bowel to suggest obstruction. Labs Labs: Laboratory Results - last 24 hr 01/19/24 01/19/24 01/19/24 05:30 18:02 18:03 WBC 31.8 H RBC 2.60 L Hgb 8.5 L Hct 24.5 L MCV 94.2 MCH 32.7 MCHC 34.7 RDW 14.2 Plt Count 126 L D MPV 11.2 H Immature Gran % (Auto) Neut % (Auto) Lymph % (Auto) [place] % (Auto) Eos % (Auto) Baso % (Auto) Lymph # (Auto) [place] # (Auto) Eos # (Auto) Baso # (Auto) Abs Immat Gran (auto) Absolute Neuts (auto) Absolute Nucleated RBC Total Counted Neutrophils % (Manual) Band Neutrophils % Lymphocytes % (Manual) Monocytes % (Manual) Metamyelocytes % Nucleated RBC % Abs Neuts (Manual) Abs Lymphs (Manual) Abs Monocytes (Manual) Platelet Estimate % Immature Plt Fraction 9.6 Hypochromasia Anisocytosis Schistocytes PT INR APTT Puncture Site ABG pH ABG pCO2 ABG pO2 ABG PO2/FiO2 Ratio ABG HCO3 ABG O2 Saturation ABG O2 Content ABG Base Excess A-a Gradient Oxyhemoglobin Carboxyhemoglobin Methemoglobin Reduced Hemoglobin Total Hemoglobin O2 Delivery Device O2 Liters/Min Minute Volume Vent Rate Vent Mode FiO2 Tidal Volume PEEP Peak Inspir Pressure Pressure Support Sodium Potassium Chloride Carbon Dioxide Anion Gap BUN Creatinine Estim Creat Clear Calc Estimated GFR Glucose POC Capillary Glucose 110 H Lactic Acid 4.4 H* Calcium Phosphorus Magnesium Total Bilirubin AST ALT Alkaline Phosphatase Total Protein Albumin Urine Eosinophils U Random Total Protein Ur Random Urea Urine Total Volume Urine Creatinine Protein/Creat Ratio 2 Random Vancomycin 19.1 Hep Bs Antigen Negative Hep Bs Antibody Negative Hep B Core Total Ab Non-reactive 01/19/24 01/19/24 01/19/24 18:05 18:05 18:05 WBC RBC Hgb Hct MCV MCH MCHC RDW Plt Count MPV Immature Gran % (Auto) Neut % (Auto) Lymph % (Auto) [place] % (Auto) Eos % (Auto) Baso % (Auto) Lymph # (Auto) [place] # (Auto) Eos # (Auto) Baso # (Auto) Abs Immat Gran (auto) Absolute Neuts (auto) Absolute Nucleated RBC Total Counted Neutrophils % (Manual) Band Neutrophils % Lymphocytes % (Manual) Monocytes % (Manual) Metamyelocytes % Nucleated RBC % Abs Neuts (Manual) Abs Lymphs (Manual) Abs Monocytes (Manual) Platelet Estimate % Immature Plt Fraction Hypochromasia Anisocytosis Schistocytes PT INR APTT Puncture Site ABG pH ABG pCO2 ABG pO2 ABG PO2/FiO2 Ratio ABG HCO3 ABG O2 Saturation ABG O2 Content ABG Base Excess A-a Gradient Oxyhemoglobin Carboxyhemoglobin Methemoglobin Reduced Hemoglobin Total Hemoglobin O2 Delivery Device O2 Liters/Min Minute Volume Vent Rate Vent Mode FiO2 Tidal Volume PEEP Peak Inspir Pressure Pressure Support Sodium Potassium Chloride Carbon Dioxide Anion Gap BUN Creatinine Estim Creat Clear Calc Estimated GFR Glucose POC Capillary Glucose Lactic Acid Calcium Phosphorus Magnesium Total Bilirubin AST ALT Alkaline Phosphatase Total Protein Albumin Urine Eosinophils None seen U Random Total Protein > 600 595 Ur Random Urea < 67 Urine Total Volume TNP Urine Creatinine 68.4 69.0 Protein/Creat Ratio 2 > 8.77 H Random Vancomycin Hep Bs Antigen Hep Bs Antibody Hep B Core Total Ab 01/19/24 01/19/24 01/19/24 20:42 20:49 21:49 WBC RBC Hgb Hct MCV MCH MCHC RDW Plt Count MPV Immature Gran % (Auto) Neut % (Auto) Lymph % (Auto) [place] % (Auto) Eos % (Auto) Baso % (Auto) Lymph # (Auto) [place] # (Auto) Eos # (Auto) Baso # (Auto) Abs Immat Gran (auto) Absolute Neuts (auto) Absolute Nucleated RBC Total Counted Neutrophils % (Manual) Band Neutrophils % Lymphocytes % (Manual) Monocytes % (Manual) Metamyelocytes % Nucleated RBC % Abs Neuts (Manual) Abs Lymphs (Manual) Abs Monocytes (Manual) Platelet Estimate % Immature Plt Fraction Hypochromasia Anisocytosis Schistocytes PT 20.2 H D INR 1.7 APTT Puncture Site ABG pH ABG pCO2 ABG pO2 ABG PO2/FiO2 Ratio ABG HCO3 ABG O2 Saturation ABG O2 Content ABG Base Excess A-a Gradient Oxyhemoglobin Carboxyhemoglobin Methemoglobin Reduced Hemoglobin Total Hemoglobin O2 Delivery Device O2 Liters/Min Minute Volume Vent Rate Vent Mode FiO2 Tidal Volume PEEP Peak Inspir Pressure Pressure Support Sodium Potassium Chloride Carbon Dioxide Anion Gap BUN Creatinine Estim Creat Clear Calc Estimated GFR Glucose POC Capillary Glucose 106 H Lactic Acid 5.2 H* Calcium Phosphorus Magnesium Total Bilirubin AST ALT Alkaline Phosphatase Total Protein Albumin Urine Eosinophils U Random Total Protein Ur Random Urea Urine Total Volume Urine Creatinine Protein/Creat Ratio 2 Random Vancomycin Hep Bs Antigen Hep Bs Antibody Hep B Core Total Ab 01/20/24 01/20/24 01/20/24 00:06 05:26 05:28 WBC RBC Hgb Hct MCV MCH MCHC RDW Plt Count MPV Immature Gran % (Auto) Neut % (Auto) Lymph % (Auto) [place] % (Auto) Eos % (Auto) Baso % (Auto) Lymph # (Auto) [place] # (Auto) Eos # (Auto) Baso # (Auto) Abs Immat Gran (auto) Absolute Neuts (auto) Absolute Nucleated RBC Total Counted Neutrophils % (Manual) Band Neutrophils % Lymphocytes % (Manual) Monocytes % (Manual) Metamyelocytes % Nucleated RBC % Abs Neuts (Manual) Abs Lymphs (Manual) Abs Monocytes (Manual) Platelet Estimate % Immature Plt Fraction Hypochromasia Anisocytosis Schistocytes PT INR APTT Puncture Site Artline ABG pH 7.590 H* ABG pCO2 24.4 L ABG pO2 78.1 L ABG PO2/FiO2 Ratio 1.95 ABG HCO3 22.9 ABG O2 Saturation 97.3 ABG O2 Content 11.0 L ABG Base Excess 1.5 A-a Gradient 179.0 Oxyhemoglobin 95.7 Carboxyhemoglobin 0.3 Methemoglobin 0.1 Reduced Hemoglobin 3.9 Total Hemoglobin 8.1 L O2 Delivery Device Ventilator O2 Liters/Min Not Reportable Minute Volume Not Reportable Vent Rate 22 Vent Mode Cmv FiO2 40 Tidal Volume 400 PEEP 8 Peak Inspir Pressure Not Reportable Pressure Support Not Reportable Sodium Potassium Chloride Carbon Dioxide Anion Gap BUN Creatinine Estim Creat Clear Calc Estimated GFR Glucose POC Capillary Glucose 146 H 159 H Lactic Acid Calcium Phosphorus Magnesium Total Bilirubin AST ALT Alkaline Phosphatase Total Protein Albumin Urine Eosinophils U Random Total Protein Ur Random Urea Urine Total Volume Urine Creatinine Protein/Creat Ratio 2 Random Vancomycin Hep Bs Antigen Hep Bs Antibody Hep B Core Total Ab 01/20/24 01/20/24 01/20/24 06:24 06:25 07:57 WBC 29.7 H RBC 2.65 L Hgb 8.7 L Hct 25.4 L MCV 95.8 MCH 32.8 MCHC 34.3 RDW 14.5 Plt Count 86 L MPV 12.0 H Immature Gran % (Auto) Not Reportable Neut % (Auto) Not Reportable Lymph % (Auto) Not Reportable [place] % (Auto) Not Reportable Eos % (Auto) Not Reportable Baso % (Auto) Not Reportable Lymph # (Auto) Not Reportable [place] # (Auto) Not Reportable Eos # (Auto) Not Reportable Baso # (Auto) Not Reportable Abs Immat Gran (auto) Not Reportable Absolute Neuts (auto) Not Reportable Absolute Nucleated RBC Not Reportable Total Counted 100 Neutrophils % (Manual) 72 Band Neutrophils % 15 H Lymphocytes % (Manual) 7.0 L Monocytes % (Manual) 4 Metamyelocytes % 2 Nucleated RBC % Not Reportable Abs Neuts (Manual) 25.83 H Abs Lymphs (Manual) 2.07 Abs Monocytes (Manual) 1.18 H Platelet Estimate Slightly decreased % Immature Plt Fraction 10.0 Hypochromasia 2+ Anisocytosis 1+ Schistocytes None seen PT 18.8 H INR 1.5 APTT 26.6 Puncture Site ABG pH ABG pCO2 ABG pO2 ABG PO2/FiO2 Ratio ABG HCO3 ABG O2 Saturation ABG O2 Content ABG Base Excess A-a Gradient Oxyhemoglobin Carboxyhemoglobin Methemoglobin Reduced Hemoglobin Total Hemoglobin O2 Delivery Device O2 Liters/Min Minute Volume Vent Rate Vent Mode FiO2 Tidal Volume PEEP Peak Inspir Pressure Pressure Support Sodium 133 L Potassium 3.6 Chloride 86 L Carbon Dioxide 35 H Anion Gap 12 BUN 32 H Creatinine 2.80 H Estim Creat Clear Calc 19 Estimated GFR 16 L Glucose 162 H POC Capillary Glucose 96 Lactic Acid 4.6 H* Calcium 7.0 L Phosphorus 2.5 Magnesium 1.8 Total Bilirubin 2.9 H AST 483 H ALT 360 H Alkaline Phosphatase 162 H Total Protein 5.0 L Albumin 3.0 L Urine Eosinophils U Random Total Protein Ur Random Urea Urine Total Volume Urine Creatinine Protein/Creat Ratio 2 Random Vancomycin Hep Bs Antigen Hep Bs Antibody Hep B Core Total Ab 01/20/24 01/20/24 01/20/24 08:00 10:40 11:46 WBC RBC Hgb Hct MCV MCH MCHC RDW Plt Count MPV Immature Gran % (Auto) Neut % (Auto) Lymph % (Auto) [place] % (Auto) Eos % (Auto) Baso % (Auto) Lymph # (Auto) [place] # (Auto) Eos # (Auto) Baso # (Auto) Abs Immat Gran (auto) Absolute Neuts (auto) Absolute Nucleated RBC Total Counted Neutrophils % (Manual) Band Neutrophils % Lymphocytes % (Manual) Monocytes % (Manual) Metamyelocytes % Nucleated RBC % Abs Neuts (Manual) Abs Lymphs (Manual) Abs Monocytes (Manual) Platelet Estimate % Immature Plt Fraction Hypochromasia Anisocytosis Schistocytes PT INR APTT Puncture Site ABG pH ABG pCO2 ABG pO2 ABG PO2/FiO2 Ratio ABG HCO3 ABG O2 Saturation ABG O2 Content ABG Base Excess A-a Gradient Oxyhemoglobin Carboxyhemoglobin Methemoglobin Reduced Hemoglobin Total Hemoglobin O2 Delivery Device O2 Liters/Min Minute Volume Vent Rate Vent Mode FiO2 Tidal Volume PEEP Peak Inspir Pressure Pressure Support Sodium Potassium Chloride Carbon Dioxide Anion Gap BUN Creatinine Estim Creat Clear Calc Estimated GFR Glucose POC Capillary Glucose 101 Lactic Acid 2.5 H Calcium Phosphorus Magnesium Total Bilirubin AST ALT Alkaline Phosphatase Total Protein Albumin Urine Eosinophils U Random Total Protein Ur Random Urea Urine Total Volume Urine Creatinine Protein/Creat Ratio 2 Random Vancomycin 22.9 H Hep Bs Antigen Hep Bs Antibody Hep B Core Total Ab 01/20/24 15:49 WBC RBC Hgb Hct MCV MCH MCHC RDW Plt Count MPV Immature Gran % (Auto) Neut % (Auto) Lymph % (Auto) [place] % (Auto) Eos % (Auto) Baso % (Auto) Lymph # (Auto) [place] # (Auto) Eos # (Auto) Baso # (Auto) Abs Immat Gran (auto) Absolute Neuts (auto) Absolute Nucleated RBC Total Counted Neutrophils % (Manual) Band Neutrophils % Lymphocytes % (Manual) Monocytes % (Manual) Metamyelocytes % Nucleated RBC % Abs Neuts (Manual) Abs Lymphs (Manual) Abs Monocytes (Manual) Platelet Estimate % Immature Plt Fraction Hypochromasia Anisocytosis Schistocytes PT INR APTT Puncture Site ABG pH ABG pCO2 ABG pO2 ABG PO2/FiO2 Ratio ABG HCO3 ABG O2 Saturation ABG O2 Content ABG Base Excess A-a Gradient Oxyhemoglobin Carboxyhemoglobin Methemoglobin Reduced Hemoglobin Total Hemoglobin O2 Delivery Device O2 Liters/Min Minute Volume Vent Rate Vent Mode FiO2 Tidal Volume PEEP Peak Inspir Pressure Pressure Support Sodium Potassium Chloride Carbon Dioxide Anion Gap BUN Creatinine Estim Creat Clear Calc Estimated GFR Glucose POC Capillary Glucose 154 H Lactic Acid Calcium Phosphorus Magnesium Total Bilirubin AST ALT Alkaline Phosphatase Total Protein Albumin Urine Eosinophils U Random Total Protein Ur Random Urea Urine Total Volume Urine Creatinine Protein/Creat Ratio 2 Random Vancomycin Hep Bs Antigen Hep Bs Antibody Hep B Core Total Ab
[2024-01-20 20:25] LABS: Glucose Point of Care 189 mg/dl (65-105)
[2024-01-21] VITALS (43 sets, daily range): BP systolic 80–145; BP diastolic 56–91; PULSE 73–112; RESP 16–29; TEMP 37–38.4; O2SAT 93–99
[2024-01-21 00:24] LABS: Glucose Point of Care 183 mg/dl (65-105)
[2024-01-21 04:43] LABS: Glucose Point of Care 191 mg/dl (65-105)
[2024-01-21 05:27] LABS: Alveolar/Arterial O2 Gradient 157.1 mmHg; Base Excess ABG 5.1 mEq/l (+/-2.0); Carboxyhemoglobin 0.4 % THb (0-2.0); Fractional Inspired Oxygen 40 %; HCO3 ABG 28.5 mEq/l (22.0-26.0); Methemoglobin ABG 0.2 %THb (0-1.5); Oxygen Content ABG 14.4 %vol (16.0-22.0); Oxygen Saturation ABG 97.1 % (95.0-100.0); Oxyhemoglobin 96.1 % THb (90.0-100.0); PCO2 ABG 37.7 mmHg (35.0-45.0); PO2 ABG 84.7 mmHg (80.0-100.0); PO2 FiO2 Ratio Arterial Blood 2.12 %; Reduced Hemoglobin 3.3 %THb (0-5.0); Total Hemoglobin 10.6 g/dL (12.0-18.0); pH ABG 7.497 (7.350-7.450)
[2024-01-21 05:32] LABS: Device VENTILATOR; Modified Allen's Test Pass; Site Drawn RIGHT BRACHIAL
[2024-01-21 05:33] LABS: Arterial Blood Gas PEEP 8 cmH2O; Arterial Blood Gas Tidal Volume 400 ml; Arterial Blood Gas Vent Mode CMV; Arterial Blood Gas Ventilator rate 18 /MIN
[2024-01-21] MEDS: CENTRAL LINE FLUSH 10 ML IV PUSH ×3 (05:38→21:33)
[2024-01-21] MEDS: AZTREONAM 1 GM in SODIUM CHLORIDE 0.9% IV 50 ML 100 ML IVPB ×2 (05:38→18:54)
[2024-01-21 06:32] LABS: Basophils Absolute Auto 0.1 K/mm3 (0.0-0.1); Basophils Percent Auto 0.2 % (0.2-1.2); Eosinophils Percent Auto 0.1 % (0-4.4); Hematocrit 29.4 % (37.0-47.0); Hemoglobin 9.7 g/dL (12.0-15.0); Immature Granulocyte Absolute 1.94 K/mm3 (0.00-0.031); Lymphocytes Absolute Auto 4.17 K/mm3 (0.9-3.2); Mean Corpuscular Hemoglobin 32.6 pg (26-34); Mean Corpuscular Volume 98.7 fl (80-100); Mean Platelet Volume 11.4 fl (7.4-10.4); Monocytes Percent Auto 6.3 % (2.6-8.5); Neutrophils Absolute Auto 23.9 K/mm3 (1.3-6.7); Neutrophils Percent Auto 74.4 % (45.5-73.1); Nucleated Red Blood Cells Perc 1.3 % (0.0-0.2); Platelet Count Result 49 k/mm3 (150-375); Red Blood Count 2.98 M/mm3 (4.2-5.4); Red Cell Distribution Width 14.5 % (11.5-14.5); White Blood Count 32.2 K/mm3 (4.5-10.0)
[2024-01-21 06:47] LABS: Alanine Aminotransferase 295 U/L (6-35); Albumin Level 2.8 g/dL (3.5-5.1); Alkaline Phosphatase 233 U/L (38-126); Anion Gap 10 mmol/L (4-12); Aspartate Amino Transferase 219 U/L (14-36); Bilirubin,Total 1.6 mg/dL (0.2-1.3); Blood Urea Nitrogen 37 mg/dL (7-17); Calcium 8.5 mg/dL (8.4-10.2); Carbon Dioxide 29 mmol/L (22-30); Chloride 98 mmol/L (98-107); Estimated CRCL calculation 21 ml/min; Estimated Glomerular Filt Rate 19; Glucose 195 mg/dL (65-110); Magnesium 2.1 mg/dL (1.6-2.3); Phosphorus 1.9 mg/dL (2.5-4.5); Potassium 3.7 mmol/L (3.4-5.0); Sodium 137 mmol/L (137-145)
[2024-01-21 07:04] LABS: INR 1.3; Prothrombin Time 16.6 Seconds (11.1-14.7)
[2024-01-21 07:05] LABS: Partial Thromboplastin Time 26.5 Seconds (22.3-36.8)
[2024-01-21 07:37] LABS: Platelet Estimate Decreased (Adequate)
[2024-01-21 07:38] LABS: Dohle Bodies Present; Schistocytes None Seen
--- NOTE | 2024-01-21 08:52 | WPDINTPN ---
Progress Note: A&P Assessment and Plan (1) Septic shock: Code(s): A41.9 - Sepsis, unspecified organism; R65.21 - Severe sepsis with septic shock Status: Acute Assessment and Plan: Septic shock likely related to pyelonephritis -right UPJ stone with hydronephrosis status post stent placement, also has evidence of pneumonia on the CT scan -01/16: Status post cystoscopy, right retrograde pyelogram, right ureteral stent placement 6 Turkmen contour Patient has received significant IV fluids and now currently off -vasopressors have been weaned off -discontinue hydrocortisone -patient has multiple allergies and was started on aztreonam and vancomycin (01/16) patient did get 1 dose of ciprofloxacin in the ER -01/16: Urine cultures growing Klebsiella which is not pansensitive. I discussed with Infectious Disease pharmacist. Due to patient's multiple antibiotic allergies and the fact the patient is clinically improving we have decided to continue with aztreonam at this time 01/16: Blood cultures negative till now Continue vancomycin to cover for skin, pneumonia, (2) Acute respiratory failure: Code(s): J96.00 - Acute respiratory failure, unspecified whether with hypoxia or hypercapnia Status: Acute Assessment and Plan: Acute respiratory failure likely related to metabolic acidosis, severe septic shock, pneumonia -01/17/2024: Patient was intubated -chest x-ray reviewed shows pneumonia and ET tube in acceptable position -ABG reviewed. Continue CMV mode of ventilation, peep of 5, 40% FiO2. Decrease rate to 16 -sedated with fentanyl and Versed infusion, maintain RASS of -2 (3) Pyelonephritis: Code(s): N12 - Tubulo-interstitial nephritis, not specified as acute or chronic Status: Acute Assessment and Plan: Patient presented with generalized weakness and diffuse abdominal pain, CT scan of the abdomen and pelvis showed right UPJ stone with hydronephrosis and possible pyelonephritis since UA revealed UTI -continue antibiotics as above -01/16: Status post cystoscopy, right retrograde pyelogram, right ureteral stent placement 6 Turkmen contour (4) Acute kidney injury: Code(s): N17.9 - Acute kidney failure, unspecified Status: Acute Assessment and Plan: Patient with acute kidney injury likely related to septic shock, ATN, hypotension, pyelonephritis. Patient on furosemide, spironolactone and atenolol at home. 01/18 dialysis initiated 01/19 patient was dialyzed on 3 L fluid was removed Continue dialysis as per Nephrology Off bicarb fluids now Monitor urine output electrolytes and creatinine (5) Right ureteral stone: Code(s): N20.1 - Calculus of ureter Status: Acute Assessment and Plan: 01/16: Status post cystoscopy, right retrograde pyelogram, right ureteral stent placement 6 Turkmen contour -urology following (6) Metabolic acidosis: Code(s): E87.20 - Acidosis, unspecified Status: Acute Assessment and Plan: IMPROVING with dialysis Will discontinue sodium bicarb infusion (7) Shock liver: Code(s): K72.00 - Acute and subacute hepatic failure without coma Status: Acute Assessment and Plan: Shock liver likely related to severe septic shock, hypotension, along with coagulopathy. LFTs are improving. Monitor (8) Thrombocytopenia: Code(s): D69.6 - Thrombocytopenia, unspecified Status: Acute Assessment and Plan: Thrombocytopenia likely related to septic shock 01/18 Patient was transfused 2 units of platelets since after place a dialysis catheter Monitor (9) Ischemic bowel disease: Code(s): K55.9 - Vascular disorder of intestine, unspecified Status: Acute Assessment and Plan: Patient had persistently high lactic acid level secondary to septic shock and there was concern for ischemic bowel although no obvious necrosis was seen on the CT scan. Patient now clinically improved although lactic acid has not normalized yet. On exam patient did not any bowel sounds and does suggest ileus KUB was done and was unremarkable. Patient did have a bowel movement Continue tube feed at current rate and monitor closely. General surgery is following (10) Ileus: Code(s): K56.7 - Ileus, unspecified Status: Acute Assessment and Plan: See above (11) Electrolyte abnormality: Code(s): E87.8 - Other disorders of electrolyte and fluid balance, not elsewhere classified Status: Acute Assessment and Plan: Patient is getting dialyzed now Replace low phosphate (12) Coagulopathy: Code(s): D68.9 - Coagulation defect, unspecified Status: Acute Assessment and Plan: 01/18 INR 2.6. patient was transfused FFP for invasive procedures INR now improved and stable Monitor INR. Hold anticoagulation at this time (13) Limb ischemia: Code(s): I99.8 - Other disorder of circulatory system Status: Acute Assessment and Plan: Both feet are cold and mottled, unable to Doppler or palpate bilateral dorsalis pedis or posterior tibial pulses, both hands are mottled with mottling of fingers both hands This is likely secondary to septic shock requiring multiple vasopressors. Unfortunately there is no solution to this and will continue monitor and hold perfusion improved. Will hold on any imaging with contrast at this time due to renal failure (14) Skin abnormalities: Code(s): L98.9 - Disorder of the skin and subcutaneous tissue, unspecified Status: Acute Assessment and Plan: Patient has a large bruise on the lateral side of her right thigh with a large fluid blister, she has a bruise on right side of her abdominal wall. This could be bruising secondary to coagulopathy and thrombocytopenia The more concerning lesion is the large area of bruising on right breast with central area of bright redness around the nipple with superficial skin breakdown. Again this could be bruising or ischemic necrosis secondary to severe shock the patient was in Consult wound care Continue vancomycin Will try to transfer patient to tertiary facility where vascular and Plastic surgery available. Plan DVT prophylaxis: Lovenox on hold, SCDs Stress ulcer prophylaxis: Protonix IV q.12 hours Nutrition: Continue trickle tube feeds for now Code Status: DNR Spoke to in detail with patient's son-in-law who was at bedside discussed exam findings including this skin findings. Discussed option of transferring to a tertiary facility where ID vascular and Plastic surgery consultation are available. He is agreeable to transfer. Discussed risks and benefits of transfer process he verbalized understanding and agreed to proceed at this time although he states he will discuss with the family members. Critical Care Time Spent: 40 minutes Discussed with patient's , son and niece updated them with patient's condition and plan of care. I answered all questions Due to a high probability of clinically significant, life threatening deterioration, the patient required my highest level of preparedness to intervene emergently and I personally spent this critical care time directly and personally managing the patient. This critical care time included obtaining a history; examining the patient; pulse oximetry; ordering and review of studies; arranging urgent treatment with development of a management plan; evaluation of patient's response to treatment; frequent reassessment; and discussions with other providers. It was exclusive of separately billable procedures and treating other patients and teaching time. Please see Assessment and Plan section and the rest of the note for further information on patient assessment and treatment This dictation may have been done utilizing a voice recognition system. Attempts have been made to correct errors. However, there may be uncorrected grammatical, spelling, and recognitions errors present. Subjective Date/time seen: 01/21/24 Overnight events reviewed. Patient is febrile overnight She was dialyzed yesterday and 3 L fluid was removed Remains oliguric Sedated and unresponsive. Sedation was held at 3:00 a.m. this morning Off vasopressors Continues to be on mechanical ventilation 40% FiO2 Tolerating tube feeds at 20 mL/hour Interval history: Reason for consult: Septic shock, pyelonephritis, kidney stones, hydronephrosis, shock liver, acute respiratory failure, thrombocytopenia Review of Systems Review of Systems: ROS unobtainable: Yes unobtainable due to endotracheal tube, unobtainable due to medical condition and unobtainable due to mental status Exam Narrative: General: Intubated and sedated HEENT:? Pupils are equal and reactive, sclera is clear. ETT in place Neck:? Supple Respiratory:? Coarse breath with crackles bilaterally, and wheezing, adequate air entry Cardiac:? S1-S2 is normal, tachycardia Abdomen:? Soft, nontender, nondistended, protuberant, absent bowel sounds Extremities:? Bilateral lower extremity edema, both feet are cold and mottled, unable to Doppler or palpate bilateral dorsalis pedis or posterior tibial pulses, both hands are mottled with mottling of fingers both hands Neuro:? Patient intubated, sedated, does not open her eyes or follow simple commands Skin:? Patient has a large bruise on the lateral side of her right thigh with fluid blister, has a bruise on right side of her abdominal wall, she has a large area of red Giovani on her right breast with superficial skin breakdown Psych:? Unable to assess Objective Data Vital Signs Vital Signs: Vital Signs - 24 hr 01/20/24 09:03 01/20/24 09:03 01/20/24 09:00 Temperature 37.5 C Pulse Rate 83 83 83 Respiratory Rate 18 18 18 Blood Pressure 153/88 H Pulse Oximetry 94 Oxygen Delivery Fraction of Inspired Oxygen 01/20/24 09:44 01/20/24 09:24 01/20/24 10:00 Temperature 37.5 C Pulse Rate 71 82 70 Respiratory Rate 18 Blood Pressure 132/83 151/85 H 143/82 H Pulse Oximetry 94 Oxygen Delivery Fraction of Inspired Oxygen 01/20/24 10:15 01/20/24 10:00 01/20/24 10:00 Temperature 37.6 C Pulse Rate 79 82 82 Respiratory Rate 18 Blood Pressure 144/82 H 143/82 H Pulse Oximetry 94 Oxygen Delivery Fraction of Inspired Oxygen 01/20/24 10:00 01/20/24 10:00 01/20/24 10:00 Temperature Pulse Rate 82 82 82 Respiratory Rate 18 18 Blood Pressure 143/82 H Pulse Oximetry Oxygen Delivery Fraction of Inspired Oxygen 01/20/24 10:30 01/20/24 10:45 01/20/24 11:00 Temperature Pulse Rate 80 80 80 Respiratory Rate Blood Pressure 147/76 H 143/80 H 141/80 H Pulse Oximetry Oxygen Delivery Fraction of Inspired Oxygen 01/20/24 11:15 01/20/24 11:30 01/20/24 11:45 Temperature Pulse Rate 80 81 81 Respiratory Rate Blood Pressure 149/81 H 149/81 H 145/82 H Pulse Oximetry Oxygen Delivery Fraction of Inspired Oxygen 01/20/24 12:00 01/20/24 12:15 01/20/24 13:00 Temperature Pulse Rate 77 79 80 Respiratory Rate Blood Pressure 154/83 H 154/89 H 151/80 H Pulse Oximetry Oxygen Delivery Fraction of Inspired Oxygen 01/20/24 11:27 01/20/24 11:42 01/20/24 12:00 Temperature 37.5 C Pulse Rate 79 79 80 Respiratory Rate 18 18 Blood Pressure 154/83 H Pulse Oximetry 95 95 95 Oxygen Delivery Mechanical Ventilation Mechanical Ventilation Fraction of Inspired Oxygen 40 40 01/20/24 12:00 01/20/24 12:00 01/20/24 12:00 Temperature Pulse Rate 79 79 79 Respiratory Rate 18 18 Blood Pressure 154/83 H Pulse Oximetry Oxygen Delivery Fraction of Inspired Oxygen 01/20/24 12:00 01/20/24 12:00 01/20/24 12:30 Temperature Pulse Rate 79 78 Respiratory Rate Blood Pressure 147/86 H Pulse Oximetry Oxygen Delivery Fraction of Inspired Oxygen 40 01/20/24 13:38 01/20/24 12:45 01/20/24 13:16 Temperature Pulse Rate 81 81 79 Respiratory Rate Blood Pressure 155/83 H 147/90 H 153/83 H Pulse Oximetry Oxygen Delivery Fraction of Inspired Oxygen 01/20/24 13:26 01/20/24 14:00 01/20/24 14:00 Temperature 37.6 C 37.4 C Pulse Rate 80 78 79 Respiratory Rate 18 18 Blood Pressure 146/78 H 140/72 Pulse Oximetry 95 95 Oxygen Delivery Fraction of Inspired Oxygen 01/20/24 14:43 01/20/24 14:00 01/20/24 14:00 Temperature Pulse Rate 83 82 82 Respiratory Rate 18 18 Blood Pressure Pulse Oximetry 98 Oxygen Delivery Mechanical Ventilation Fraction of Inspired Oxygen 40 01/20/24 15:35 01/20/24 16:00 01/20/24 16:00 Temperature Pulse Rate 82 87 86 Respiratory Rate 18 18 18 Blood Pressure Pulse Oximetry 98 Oxygen Delivery Mechanical Ventilation Fraction of Inspired Oxygen 40 01/20/24 16:00 01/20/24 16:00 01/20/24 16:00 Temperature 37.4 C Pulse Rate 86 86 Respiratory Rate 18 Blood Pressure 154/75 H Pulse Oximetry 98 Oxygen Delivery Fraction of Inspired Oxygen 40 01/20/24 17:05 01/20/24 17:59 01/20/24 18:00 Temperature Pulse Rate 84 77 77 Respiratory Rate 18 Blood Pressure Pulse Oximetry 98 Oxygen Delivery Mechanical Ventilation Fraction of Inspired Oxygen 40 01/20/24 18:00 01/20/24 18:00 01/20/24 20:09 Temperature 37.6 C H Pulse Rate 77 78 75 Respiratory Rate 18 18 Blood Pressure 141/72 H Pulse Oximetry 98 97 Oxygen Delivery Mechanical Ventilation Fraction of Inspired Oxygen 40 01/20/24 20:00 01/20/24 20:00 01/20/24 22:00 Temperature Pulse Rate 76 76 77 Respiratory Rate 18 18 18 Blood Pressure Pulse Oximetry Oxygen Delivery Fraction of Inspired Oxygen 01/20/24 22:00 01/20/24 20:00 01/20/24 20:00 Temperature 37.7 C H Pulse Rate 77 76 Respiratory Rate 18 18 Blood Pressure 147/78 H Pulse Oximetry 97 Oxygen Delivery Fraction of Inspired Oxygen 40 01/20/24 22:00 01/20/24 20:00 01/20/24 23:17 Temperature 37.8 C H Pulse Rate 77 73 Respiratory Rate 18 Blood Pressure 126/66 Pulse Oximetry 97 94 Oxygen Delivery Mechanical Ventilation Mechanical Ventilation Fraction of Inspired Oxygen 40 40 01/20/24 20:00 01/20/24 22:00 01/21/24 00:00 Temperature Pulse Rate 76 77 73 Respiratory Rate Blood Pressure Pulse Oximetry Oxygen Delivery Fraction of Inspired Oxygen 01/21/24 00:00 01/21/24 00:00 01/21/24 02:20 Temperature Pulse Rate 77 Respiratory Rate Blood Pressure Pulse Oximetry 93 Oxygen Delivery Mechanical Ventilation Mechanical Ventilation Fraction of Inspired Oxygen 40 40 40 01/21/24 00:00 01/21/24 02:00 01/21/24 04:00 Temperature Pulse Rate 76 76 79 Respiratory Rate 18 18 18 Blood Pressure Pulse Oximetry Oxygen Delivery Fraction of Inspired Oxygen 01/21/24 00:00 01/21/24 02:00 01/21/24 03:00 Temperature Pulse Rate 76 76 79 Respiratory Rate 18 18 18 Blood Pressure Pulse Oximetry Oxygen Delivery Fraction of Inspired Oxygen 01/21/24 04:00 01/21/24 00:00 01/21/24 05:02 Temperature 37.8 C H Pulse Rate 79 76 77 Respiratory Rate 18 18 Blood Pressure 142/77 H Pulse Oximetry 94 94 Oxygen Delivery Mechanical Ventilation Fraction of Inspired Oxygen 40 01/21/24 02:00 01/21/24 04:00 01/21/24 02:00 Temperature 38.0 C H 38.1 C H Pulse Rate 76 79 76 Respiratory Rate 18 18 Blood Pressure 145/76 H 125/70 Pulse Oximetry 94 94 Oxygen Delivery Fraction of Inspired Oxygen 01/21/24 04:00 01/21/24 04:00 01/21/24 04:00 Temperature Pulse Rate 77 Respiratory Rate Blood Pressure Pulse Oximetry Oxygen Delivery Mechanical Ventilation Fraction of Inspired Oxygen 40 40 01/21/24 06:00 01/21/24 06:00 01/21/24 06:00 Temperature 38.2 C H Pulse Rate 79 79 79 Respiratory Rate 18 18 18 Blood Pressure 104/56 L Pulse Oximetry 96 Oxygen Delivery Fraction of Inspired Oxygen 01/21/24 06:00 01/21/24 08:26 01/21/24 08:00 Temperature 37.8 C H Pulse Rate 79 76 82 Respiratory Rate 18 Blood Pressure 121/72 Pulse Oximetry 97 96 Oxygen Delivery Mechanical Ventilation Fraction of Inspired Oxygen 40 01/21/24 08:31 Temperature Pulse Rate 78 Respiratory Rate Blood Pressure 108/64 Pulse Oximetry Oxygen Delivery Fraction of Inspired Oxygen Intake/Output Intake/Output: Intake & Output 01/18/24 01/19/24 01/20/24 01/21/24 23:59 23:59 23:59 23:59 Intake Total 6609.8 5378.0 1475.9 485.5 Output Total 200 1135 3378 125 Balance 6409.8 4243.0 -1902.1 360.5 Meds/Results Medications: Active Medications Generic Name Dose Route Start Last Admin Trade Name Freq PRN Reason Stop Dose Admin Dextrose 12.5 gm 01/20/24 08:35 Dextrose 50% 25 Gm/50 Ml Syringe IV PUSH PRN PRN Hypoglycemia Protocol Epoetin Brent-epbx 10,000 units 01/21/24 20:00 Epoetin Brent-Epbx 10,000 Units/Ml Vial IV PUSH 01/21/24 20:01 ONCE ONE Glucagon 1 mg 01/20/24 08:35 Glucagon For Inj 1 Mg Vial IM PRN PRN Hypoglycemia Protocol Glucose 15 gm 01/20/24 08:35 Glucose Oral Gel 15 Gm Of Glucse In 37.5 Gm Tube PO PRN PRN Hypoglycemia Protocol Hydrocortisone Sodium Succinate 100 mg 01/20/24 09:00 01/20/24 09:07 Hydrocortisone Sodium Succinate 100 Mg/2 Ml Vial IV PUSH 100 mg QAM TANNA Administration Fentanyl Citrate 2,500 mcg in 250 mls @ 2.5 mls/hr 01/17/24 22:35 01/21/24 06:00 Fentanyl 2,500 Mcg/Ns 250 Ml IV CONT 0 mcg/hr .Q72H TANNA 0 mls/hr Titration Protocol 25 MCG/HR Midazolam HCl 100 mg in 100 mls @ 1 mls/hr 01/17/24 22:35 01/21/24 06:00 Versed 100 Mg/Ns 100 Ml IV CONT 0 mg/hr .Q72H TANNA 0 mls/hr Titration Protocol 1 MG/HR Aztreonam 1 gm/ Sodium 50 mls @ 100 mls/hr 01/19/24 18:00 01/21/24 06:08 Chloride IVPB Infused Q12H TANNA Infusion Albumin Human 50 mls @ 999 mls/hr 01/19/24 12:02 Albutein IVPB 02/18/24 12:01 Q10M PRN HYPOTENSION Dextrose 1,000 mls @ 100 mls/hr 01/20/24 08:35 Dextrose 5% 1,000 Ml IVPB PRN PRN Hypoglycemia Protocol Insulin Aspart 2 - 5 units 01/20/24 08:35 01/21/24 04:54 Insulin Aspart (*Bkc) 100 Units/Ml SUB-Q Not Given Q4H [facility] Protocol Multi-Ingred Cream/Lotion/Oil/Oint 1 applic 01/18/24 09:00 01/20/24 20:26 Mineral Oil/White Petrolatum Ointment EACH EYE 1 applic Q12HR TANNA Administration Nabumetone 750 mg 01/17/24 21:00 Nabumetone 750 Mg Tablet PO Q12HR TANNA Ondansetron HCl 4 mg 01/17/24 12:42 01/17/24 12:51 Ondansetron Inj 4 Mg/2 Ml Vial IV PUSH 4 mg Q4H PRN Administration Nausea Pantoprazole Sodium 40 mg 01/19/24 09:00 01/20/24 20:26 Pantoprazole Sodium Iv 40 Mg Vial IV PUSH 40 mg Q12HR TANNA Administration Sodium Chloride 10 ml 01/17/24 22:00 01/21/24 05:38 Central Line Flush IV PUSH 10 ml Q8HR TANNA Administration Sodium Chloride 20 ml 01/17/24 16:51 Central Line Flush IV PUSH PRN PRN after blood draws Tolnaftate 1 applic 01/20/24 09:00 01/20/24 20:27 Tolnaftate 1% Powder 45 Gm Btl TOPICAL 1 applic Q12HR TANNA Administration Radiology Results: ITS Impressions Abdomen/Pelvis CT 01/17/24 10:23 IMPRESSION: 1. 11 mm stone at right ureteropelvic junction with mild right hydronephrosis. 2. 1 mm nonobstructing left kidney stone. 3. 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 Ureter Stent X-Ray 01/17/24 15:20 IMPRESSION: 1. Persistent stone at the right ureteropelvic junction with placement of a right internal ureteral stent in expected position. Is unclear the stone has been removed on the final image and would correlate with procedure note for further detail. Renal Ultrasound 01/17/24 19:03 IMPRESSION: 1. 7.2 cm left renal cyst. Otherwise normal kidneys with no hydronephrosis. Chest/Abdomen/Pelvis CT 01/19/24 09:48 IMPRESSION: 1. Patchy airspace opacities in right lung upper lobe, consistent with atelectasis versus pneumonia. 2. Small pleural effusions, right worse than left. 3. Small volume of ascites. 4. 8 mm stone in right renal pelvis with right internal ureteral stent in expected position. 5. 2 mm nonobstructing left kidney stone. Abdomen X-Ray 01/20/24 14:55 IMPRESSION: 1. No dilated loops of bowel to suggest obstruction. Chest X-Ray 01/21/24 06:08 IMPRESSION: 1. Airspace opacities in the lower lung zones with improvement on the right and worsening on the left, consistent with atelectasis versus pneumonia. 2. Stable small left pleural effusion. 3. Cardiomegaly. Labs Labs: Laboratory Results - last 24 hr 01/19/24 01/20/24 01/20/24 05:30 08:00 10:40 WBC RBC Hgb Hct MCV MCH MCHC RDW Plt Count MPV Immature Gran % (Auto) Neut % (Auto) Lymph % (Auto) Kaufman % (Auto) Eos % (Auto) Baso % (Auto) Lymph # (Auto) Kaufman # (Auto) Eos # (Auto) Baso # (Auto) Abs Immat Gran (auto) Absolute Neuts (auto) Absolute Nucleated RBC Nucleated RBC % Dohle Bodies Platelet Estimate % Immature Plt Fraction Schistocytes PT INR APTT Puncture Site ABG pH ABG pCO2 ABG pO2 ABG PO2/FiO2 Ratio ABG HCO3 ABG O2 Saturation ABG O2 Content ABG Base Excess A-a Gradient Oxyhemoglobin Carboxyhemoglobin Methemoglobin Reduced Hemoglobin Total Hemoglobin O2 Delivery Device O2 Liters/Min Minute Volume Vent Rate Vent Mode FiO2 Tidal Volume PEEP Peak Inspir Pressure Pressure Support Sodium Potassium Chloride Carbon Dioxide Anion Gap BUN Creatinine Estim Creat Clear Calc Estimated GFR Glucose POC Capillary Glucose Lactic Acid 2.5 H Calcium Phosphorus Magnesium Total Bilirubin AST ALT Alkaline Phosphatase Total Protein Albumin Random Vancomycin 22.9 H Hep B Core Total Ab Non-reactive 01/20/24 01/20/24 01/20/24 11:46 15:49 20:15 WBC RBC Hgb Hct MCV MCH MCHC RDW Plt Count MPV Immature Gran % (Auto) Neut % (Auto) Lymph % (Auto) Kaufman % (Auto) Eos % (Auto) Baso % (Auto) Lymph # (Auto) Kaufman # (Auto) Eos # (Auto) Baso # (Auto) Abs Immat Gran (auto) Absolute Neuts (auto) Absolute Nucleated RBC Nucleated RBC % Dohle Bodies Platelet Estimate % Immature Plt Fraction Schistocytes PT INR APTT Puncture Site ABG pH ABG pCO2 ABG pO2 ABG PO2/FiO2 Ratio ABG HCO3 ABG O2 Saturation ABG O2 Content ABG Base Excess A-a Gradient Oxyhemoglobin Carboxyhemoglobin Methemoglobin Reduced Hemoglobin Total Hemoglobin O2 Delivery Device O2 Liters/Min Minute Volume Vent Rate Vent Mode FiO2 Tidal Volume PEEP Peak Inspir Pressure Pressure Support Sodium Potassium Chloride Carbon Dioxide Anion Gap BUN Creatinine Estim Creat Clear Calc Estimated GFR Glucose POC Capillary Glucose 101 154 H 189 H Lactic Acid Calcium Phosphorus Magnesium Total Bilirubin AST ALT Alkaline Phosphatase Total Protein Albumin Random Vancomycin Hep B Core Total Ab 01/21/24 01/21/24 01/21/24 00:09 04:21 05:06 WBC RBC Hgb Hct MCV MCH MCHC RDW Plt Count MPV Immature Gran % (Auto) Neut % (Auto) Lymph % (Auto) Kaufman % (Auto) Eos % (Auto) Baso % (Auto) Lymph # (Auto) Kaufman # (Auto) Eos # (Auto) Baso # (Auto) Abs Immat Gran (auto) Absolute Neuts (auto) Absolute Nucleated RBC Nucleated RBC % Dohle Bodies Platelet Estimate % Immature Plt Fraction Schistocytes PT INR APTT Puncture Site Right brachial ABG pH 7.497 H ABG pCO2 37.7 ABG pO2 84.7 ABG PO2/FiO2 Ratio 2.12 ABG HCO3 28.5 H ABG O2 Saturation 97.1 ABG O2 Content 14.4 L ABG Base Excess 5.1 A-a Gradient 157.1 Oxyhemoglobin 96.1 Carboxyhemoglobin 0.4 Methemoglobin 0.2 Reduced Hemoglobin 3.3 Total Hemoglobin 10.6 L O2 Delivery Device Ventilator O2 Liters/Min Not Reportable Minute Volume Not Reportable Vent Rate 18 Vent Mode Cmv FiO2 40 Tidal Volume 400 PEEP 8 Peak Inspir Pressure Not Reportable Pressure Support Not Reportable Sodium Potassium Chloride Carbon Dioxide Anion Gap BUN Creatinine Estim Creat Clear Calc Estimated GFR Glucose POC Capillary Glucose 183 H 191 H Lactic Acid Calcium Phosphorus Magnesium Total Bilirubin AST ALT Alkaline Phosphatase Total Protein Albumin Random Vancomycin Hep B Core Total Ab 01/21/24 06:20 WBC 32.2 H RBC 2.98 L Hgb 9.7 L Hct 29.4 L MCV 98.7 MCH 32.6 MCHC 33.0 RDW 14.5 Plt Count 49 L MPV 11.4 H Immature Gran % (Auto) 6.0 H Neut % (Auto) 74.4 H Lymph % (Auto) 13.0 L Kaufman % (Auto) 6.3 Eos % (Auto) 0.1 Baso % (Auto) 0.2 Lymph # (Auto) 4.17 H Kaufman # (Auto) 2.0 H Eos # (Auto) 0.0 Baso # (Auto) 0.1 Abs Immat Gran (auto) 1.94 H Absolute Neuts (auto) 23.9 H Absolute Nucleated RBC 0.430 H Nucleated RBC % 1.3 H Dohle Bodies Present Platelet Estimate Decreased % Immature Plt Fraction 12.0 H Schistocytes None seen PT 16.6 H INR 1.3 APTT 26.5 Puncture Site ABG pH ABG pCO2 ABG pO2 ABG PO2/FiO2 Ratio ABG HCO3 ABG O2 Saturation ABG O2 Content ABG Base Excess A-a Gradient Oxyhemoglobin Carboxyhemoglobin Methemoglobin Reduced Hemoglobin Total Hemoglobin O2 Delivery Device O2 Liters/Min Minute Volume Vent Rate Vent Mode FiO2 Tidal Volume PEEP Peak Inspir Pressure Pressure Support Sodium 137 Potassium 3.7 Chloride 98 Carbon Dioxide 29 Anion Gap 10 BUN 37 H Creatinine 2.40 H Estim Creat Clear Calc 21 Estimated GFR 19 L Glucose 195 H POC Capillary Glucose Lactic Acid Calcium 8.5 Phosphorus 1.9 L Magnesium 2.1 Total Bilirubin 1.6 H AST 219 H ALT 295 H Alkaline Phosphatase 233 H Total Protein 5.0 L Albumin 2.8 L Random Vancomycin Hep B Core Total Ab
[2024-01-21] MEDS: PANTOPRAZOLE SODIUM IV 40 MG VIAL IV PUSH ×2 (10:07→21:33)
[2024-01-21] MEDS: TOLNAFTATE 1% POWDER 45 GM BTL 1 APPLIC TOPICAL ×2 (10:07→21:33)
[2024-01-21] MEDS: MINERAL OIL/WHITE PETROLATUM OINTMENT 1 APPLIC EACH EYE ×2 (10:08→21:33)
[2024-01-21 10:33] LABS: Glucose Point of Care 184 mg/dl (65-105)
--- NOTE | 2024-01-21 10:51 | P.PNNP_ITS ---
Progress Note: A&P Assessment and Plan (1) Acute kidney injury: Code(s): N17.9 - Acute kidney failure, unspecified Status: Acute Assessment and Plan: * due to ATN with multifactorial etiology: * hemodynamic instability/shock * infection/sepsis * BP medications prior to admission * diuretics prior to admission * obstructive uropathy * nephrolithiasis * s/p adequate fluid resuscitation * still requiring low dose vasopressor support (levophed) * given worsening creatinine, metabolic acidosis, and anuria -- initiated on [employer]/hemodialysis * HD yesterday * HD today * plan HD tomorrow as well * follow repeat labs and UOP for potential renal recovery (2) Septic shock: Code(s): A41.9 - Sepsis, unspecified organism; R65.21 - Severe sepsis with septic shock Status: Acute Assessment and Plan: * due to pyelonephritis in association with obstructing right UPJ stone * s/p IVF resuscitation and was requiring significant vasopressor support * weaned of levophed, vasopressin, juanis-synephrine and epinephrine * s/p cystoscopy, right retrograde pyelogram, right ureteral stent placement on 12/29 * follow culture data - results noted * on IV antibiotics (3) Acute respiratory failure: Code(s): J96.00 - Acute respiratory failure, unspecified whether with hypoxia or hypercapnia Status: Acute Assessment and Plan: * secondary to metabolic acidosis and severe septic shock * continue ventilator support * wean when more stable (4) Metabolic acidosis: Code(s): E87.20 - Acidosis, unspecified Status: Acute Assessment and Plan: * improving * due to AMARIS/ARF and severe lactic acidosis * repeat CT scan without evidence of bowel ischemia * s/p multiple doses of sodium bicarb IV pushes * off bicarb infusion * dialysis helping * follow trend of lactic acid (5) Pyelonephritis: Code(s): N12 - Tubulo-interstitial nephritis, not specified as acute or chronic Status: Acute Assessment and Plan: * as evidence by symptoms and imaging findings CT scan of the abdomen and pelvis with right UPJ stone with hydronephrosis and possible pyelonephritis given UA findings * on antibiotic therapy * s/p cystoscopy, right retrograde pyelogram, right ureteral stent placement on 01/16 (6) Right ureteral stone: Code(s): N20.1 - Calculus of ureter Status: Acute Assessment and Plan: * Urology following * see #4 (7) Shock liver: Code(s): K72.00 - Acute and subacute hepatic failure without coma Status: Acute Assessment and Plan: * due to severe sepsis and shock * follow trend of LFTs and INR (8) Thrombocytopenia: Code(s): D69.6 - Thrombocytopenia, unspecified Status: Acute Assessment and Plan: * likely related to septic shock * follow trend of platelets Will continue to follow. Subjective Date/time seen: 01/21/24 10:51 Interval history: Follow-up for acute kidney injury/acute renal failure. Tolerated dialysis treatment yesterday with ~ 3L fluid removal and tolerating dialysis at the time of my visit (seen on HD at 10:40AM); remains intubated and on mechanical ventilation; off sedation since early this AM but remains unresponsive; remains hemodynamically stable off vasopressor therapy; several skin lesions noted concerning for ischemia possibly secondary to previous shock. Exam Narrative: General: elderly female intubated/sedated and on mechanical ventilation Heart: normal S1 and S2; no rub Lungs: coarse breath sounds with bibasilar crackles Abdomen: soft, nontender, nondistended, positive bowel sounds Extremities: 1+ edema noted bilaterally Skin: purple discoloration in feet/toes/finger tips Objective Data Vital Signs Vital Signs: Vital Signs Temp Pulse Resp BP Pulse Ox O2 Del Method FiO2 01/21/24 10:50 96 97 Mechanical Ventilation 40 01/21/24 10:15 108 H 116/81 01/21/24 10:00 106 H 111/76 01/21/24 10:00 106 H 18 01/21/24 08:00 76 18 01/21/24 08:00 40 01/21/24 10:00 100.6 F H 106 H 24 H 111/76 98 01/21/24 08:00 100.1 F H 76 18 121/72 97 01/21/24 09:00 82 106/74 01/21/24 11:45 101 H 84/63 L 01/21/24 11:30 102 H 104/77 01/21/24 11:15 98 95/73 L 01/21/24 11:00 98 97/73 L 01/21/24 10:45 98 97/71 L 01/21/24 10:30 98 101/75 01/21/24 09:45 94 120/91 H 01/21/24 09:30 87 109/76 01/21/24 09:15 85 116/76 01/21/24 08:45 80 106/72 01/21/24 08:31 40 01/21/24 08:31 78 108/64 01/21/24 08:00 100.1 F H 82 18 121/72 96 01/21/24 08:26 76 97 Mechanical Ventilation 40 01/21/24 06:00 79 01/21/24 06:00 100.7 F H 79 18 104/56 L 96 01/21/24 06:00 79 18 01/21/24 06:00 79 18 01/21/24 04:00 77 01/21/24 04:00 40 01/21/24 04:00 Mechanical Ventilation 40 01/21/24 02:00 76 01/21/24 04:00 100.6 F H 79 18 125/70 94 01/21/24 02:00 100.4 F H 76 18 145/76 H 94 01/21/24 05:02 77 94 Mechanical Ventilation 40 01/21/24 00:00 100.0 F H 76 18 142/77 H 94 01/21/24 04:00 79 18 01/21/24 03:00 79 18 01/21/24 02:00 76 18 01/21/24 00:00 76 18 01/21/24 04:00 79 18 01/21/24 02:00 76 18 01/21/24 00:00 76 18 01/21/24 02:20 77 93 Mechanical Ventilation 40 01/21/24 00:00 40 01/21/24 00:00 Mechanical Ventilation 40 01/21/24 00:00 73 01/20/24 22:00 77 01/20/24 20:00 76 01/20/24 23:17 73 94 Mechanical Ventilation 40 01/20/24 20:00 Mechanical Ventilation 40 01/20/24 22:00 100.1 F H 77 18 126/66 97 01/20/24 20:00 99.9 F H 76 18 147/78 H 97 01/20/24 20:00 40 01/20/24 22:00 77 18 01/20/24 22:00 77 18 01/20/24 20:00 76 18 01/20/24 20:00 76 18 01/20/24 20:09 75 97 Mechanical Ventilation 40 01/20/24 18:00 99.7 F H 78 18 141/72 H 98 01/20/24 18:00 77 18 01/20/24 18:00 77 18 01/20/24 17:59 77 01/20/24 17:05 84 98 Mechanical Ventilation 40 01/20/24 16:00 40 01/20/24 16:00 99.4 F 86 18 154/75 H 98 01/20/24 16:00 86 01/20/24 16:00 86 18 01/20/24 16:00 87 18 01/20/24 15:35 82 18 98 Mechanical Ventilation 40 Intake/Output Intake/Output: Intake & Output 01/18/24 01/19/24 01/20/24 01/21/24 23:59 23:59 23:59 23:59 Intake Total 6609.8 5378.0 1475.9 507.0 Output Total 200 1135 3378 2925 Balance 6409.8 4243.0 -1902.1 -2418.0 Meds/Results Medications: Active Medications Generic Name Dose Route Start Last Admin Trade Name Freq PRN Reason Stop Dose Admin Dextrose 12.5 gm 01/20/24 08:35 Dextrose 50% 25 Gm/50 Ml Syringe IV PUSH PRN PRN Hypoglycemia Protocol Epoetin Brent-epbx 10,000 units 01/21/24 20:00 01/21/24 10:53 Epoetin Brent-Epbx 10,000 Units/Ml Vial IV PUSH 01/21/24 20:01 10,000 units ONCE ONE Administration Glucagon 1 mg 01/20/24 08:35 Glucagon For Inj 1 Mg Vial IM PRN PRN Hypoglycemia Protocol Glucose 15 gm 01/20/24 08:35 Glucose Oral Gel 15 Gm Of Glucse In 37.5 Gm Tube PO PRN PRN Hypoglycemia Protocol Fentanyl Citrate 2,500 mcg in 250 mls @ 5 mls/hr 01/17/24 22:35 01/21/24 14:44 Fentanyl 2,500 Mcg/Ns 250 Ml IV CONT 50 mcg/hr .Q50H TANNA 5 mls/hr Titration Protocol 50 MCG/HR Midazolam HCl 100 mg in 100 mls @ 2 mls/hr 01/17/24 22:35 01/21/24 14:44 Versed 100 Mg/Ns 100 Ml IV CONT 2 mg/hr .Q50H TANNA 2 mls/hr Titration Protocol 2 MG/HR Aztreonam 1 gm/ Sodium 50 mls @ 100 mls/hr 01/19/24 18:00 01/21/24 06:08 Chloride IVPB Infused Q12H TANNA Infusion Albumin Human 50 mls @ 999 mls/hr 01/19/24 12:02 Albutein IVPB 02/18/24 12:01 Q10M PRN HYPOTENSION Dextrose 1,000 mls @ 100 mls/hr 01/20/24 08:35 Dextrose 5% 1,000 Ml IVPB PRN PRN Hypoglycemia Protocol Vancomycin HCl 1,000 mg in 250 mls @ 250 mls/hr 01/21/24 14:16 Vancomycin 1,000 Mg/Ns 250 Ml IVPB 01/21/24 15:15 ONCE ONE Insulin Aspart 2 - 5 units 01/20/24 08:35 01/21/24 12:01 Insulin Aspart (*Bkc) 100 Units/Ml SUB-Q Not Given Q4H [facility] Protocol Multi-Ingred Cream/Lotion/Oil/Oint 1 applic 01/18/24 09:00 01/21/24 10:08 Mineral Oil/White Petrolatum Ointment EACH EYE 1 applic Q12HR TANNA Administration Nabumetone 750 mg 01/17/24 21:00 Nabumetone 750 Mg Tablet PO Q12HR TANNA Ondansetron HCl 4 mg 01/17/24 12:42 01/17/24 12:51 Ondansetron Inj 4 Mg/2 Ml Vial IV PUSH 4 mg Q4H PRN Administration Nausea Pantoprazole Sodium 40 mg 01/19/24 09:00 01/21/24 10:07 Pantoprazole Sodium Iv 40 Mg Vial IV PUSH 40 mg Q12HR TANNA Administration Sodium Chloride 10 ml 01/17/24 22:00 01/21/24 13:27 Central Line Flush IV PUSH 10 ml Q8HR TANNA Administration Sodium Chloride 20 ml 01/17/24 16:51 Central Line Flush IV PUSH PRN PRN after blood draws Tolnaftate 1 applic 01/20/24 09:00 01/21/24 10:07 Tolnaftate 1% Powder 45 Gm Btl TOPICAL 1 applic Q12HR TANNA Administration Vancomycin HCl 1 each 01/21/24 09:37 Vancomycin For Hemodialysis IVPB PRN PRN Vancomycin Protocol Radiology Results: ITS Impressions Abdomen/Pelvis CT 01/17/24 10:23 IMPRESSION: 1. 11 mm stone at right ureteropelvic junction with mild right hydronephrosis. 2. 1 mm nonobstructing left kidney stone. 3. 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 Ureter Stent X-Ray 01/17/24 15:20 IMPRESSION: 1. Persistent stone at the right ureteropelvic junction with placement of a right internal ureteral stent in expected position. Is unclear the stone has been removed on the final image and would correlate with procedure note for further detail. Renal Ultrasound 01/17/24 19:03 IMPRESSION: 1. 7.2 cm left renal cyst. Otherwise normal kidneys with no hydronephrosis. Chest/Abdomen/Pelvis CT 01/19/24 09:48 IMPRESSION: 1. Patchy airspace opacities in right lung upper lobe, consistent with atelectasis versus pneumonia. 2. Small pleural effusions, right worse than left. 3. Small volume of ascites. 4. 8 mm stone in right renal pelvis with right internal ureteral stent in expected position. 5. 2 mm nonobstructing left kidney stone. Abdomen X-Ray 01/20/24 14:55 IMPRESSION: 1. No dilated loops of bowel to suggest obstruction. Chest X-Ray 01/21/24 06:08 IMPRESSION: 1. Airspace opacities in the lower lung zones with improvement on the right and worsening on the left, consistent with atelectasis versus pneumonia. 2. Stable small left pleural effusion. 3. Cardiomegaly. Labs Labs: Laboratory Tests 01/21/24 06:20 01/21/24 06:20 Calcium 8.5 Phosphorus 1.9 L Magnesium 2.1 Total Bilirubin 1.6 H AST 219 H ALT 295 H Alkaline Phosphatase 233 H Total Protein 5.0 L Albumin 2.8 L
[2024-01-21] MEDS: EPOETIN ALFA-EPBX 10,000 UNITS/ML VIAL 10000 UNITS IV PUSH (10:53)
--- NOTE | 2024-01-21 11:00 | PC.NURSE ---
Spoke to Dena with [facility] center at 1055. Patient accepted to [facility]. No bed available at this time. Updates on labs, vital signs, ventilator settings, and current assessment reported. [facility] transfer center to remain in contact until bed becomes available.
--- NOTE | 2024-01-21 11:20 | P.PNCROSS_ITS ---
Event Note Event Note Event Note: Spoke to Dr. Newman with [facility] medical ICU. Discuss case and she has accepted the patient for transfer to [facility]. She is on the wait list now and they will call once bed is available. Accepting physician Dr. Russo. I spoke to and updated patient's and other family members. I explained risks and benefits of transfer. I answered all their questions. They verbalized understanding and are agreeable to proceed at this time.
[2024-01-21] MEDS: MIDAZOLAM HCL (*CRX) 2 MG/2 ML VIAL IV PUSH (12:00)
[2024-01-21] MEDS: SODIUM PHOSPHATE 20 MM in DEXTROSE 5% IN WATER 250 ML 50 MM IVPB (12:00)
[2024-01-21] MEDS: HEPARIN SODIUM 1,000 UNITS/ML VIAL 4000 UNITS IV PUSH (12:14)
[2024-01-21 12:35] LABS: Glucose Point of Care 145 mg/dl (65-105)
[2024-01-21 13:56] LABS: Vancomycin Random 10.8 ug/mL (10-20)
[2024-01-21] MEDS: VANCOMYCIN 1,000 MG/NS 250 ML 1,000 MG/250 ML BAG 250 MG IVPB (15:00)
[2024-01-21] MEDS: INSULIN ASPART (*BKC) 100 UNITS/ML SUB-Q (16:35)
[2024-01-21 16:40] LABS: Glucose Point of Care 221 mg/dl (65-105)
--- NOTE | 2024-01-21 16:45 | P.PN_ITS ---
Progress Note: A&P Assessment and Plan (1) Septic shock: Code(s): A41.9 - Sepsis, unspecified organism; R65.21 - Severe sepsis with septic shock Status: Acute Assessment and Plan: The patient meets criteria for septic shock with refractory hypotension, acute kidney injury, leukocytosis with bandemia, tachypnea, tachycardia, and fever. Source is urinary tract infection related to obstructing ureteral stone. * Central line inserted 01/17/2024 per anesthesiologist. * Currently on norepinephrine, vasopressin, and phenylephrine. * Maintain SBP > 95 and MAP > 65 for adequate end-organ perfusion. * Add stress dose steroids, hydrocortisone 100 mg q.8 hours. * Continue aztreonam and vancomycin pending blood and urine cultures. (2) Urinary tract infection: Code(s): N39.0 - Urinary tract infection, site not specified Status: Acute Assessment and Plan: UTI secondary to obstructing stones. Urinalysis was positive for 3+ leukocyte esterase, > 100 WBC, and 4+ bacteria. * Receive ciprofloxacin 200 mg in the ED; she has multiple drug allergies. * Changed to aztreonam 1 g q.8 hours and vancomycin pending cultures. (3) Right ureteral stone: Code(s): N20.1 - Calculus of ureter Status: Acute Assessment and Plan: CT scan showed an 11 mm stone at the right ureteropelvic junction with mild right hydronephrosis. * Postoperative day 0 status post cystoscopy with ureteral stent placement. * Needs close follow-up with Dr. Gudino for definitive management pending resolution of infection. (4) Hydronephrosis: Code(s): N13.30 - Unspecified hydronephrosis Status: Acute Assessment and Plan: CT scan showed mild right hydronephrosis secondary to ureteral stone. * Status post cystoscopy and stent placement. (5) Acute kidney injury: Code(s): N17.9 - Acute kidney failure, unspecified Status: Acute Assessment and Plan: Due to a combination of obstructing stone, hypoperfusion from hypotension, and sepsis; she is also on thiazide and loop diuretics as well as NSAIDS. * Rocha catheter has been inserted for strict I/O with minimal output since surgery. * Continue judicious IV fluid rehydration with close monitoring of volume status. * Renally dose all medications and hold nephrotoxic agents. * Renal ultrasound has been ordered for a.m. (6) Acute respiratory failure: Code(s): J96.00 - Acute respiratory failure, unspecified whether with hypoxia or hypercapnia Status: Acute Assessment and Plan: Patient is tachypneic and hypoxic due to acidosis. Chest x-ray is clear. * ABG shows concomitant metabolic and respiratory acidosis. * Patient was started on Vapotherm with some improvement but deteriorated and was subsequently intubated. * Currently on CMV with a tidal volume of 350, rate 24, peep 5. * Sedation with very low-dose fentanyl (patient reports significant nausea and vomiting) and midazolam. (7) Electrolyte abnormality: Code(s): E87.8 - Other disorders of electrolyte and fluid balance, not elsewhere classified Status: Acute Assessment and Plan: Patient has several electrolyte abnormalities including hypocalcemia and hypomagnesemia. * Calcium and magnesium will be replaced and monitored closely. (8) Hypertension: Code(s): I10 - Essential (primary) hypertension Status: Acute Assessment and Plan: She has refractory hypotension is currently on vasopressors as above. * Continue to hold antihypertensives. Plan on 01/16 patient was seen by her urologist for infected stone and had cystoscopy and right ureteral stent placement emergently, and was found to have UTI- pyelonephritis, Patient was started on broad-spectrum antibiotics. patient went to sepsis with hypotension was started on vasopressin, norepinephrine and fluids, patient condition was worsening and patient was intubated. on 01/17 rural carrier spoke with the patient's family and recommended to add another pressor and also discussed the long-term care and family has decided to place the patient DNR. patient clinical symptoms are improving her BP is trending up and currently requiring only one pressure, however her Sr Cr remains elevated suspect ATN 2/2 hypotension, patient have temporary dialysis to improver her kidney function, also there was concern that patient may have injury her intestine, CT scan of abdomen did not show any perforation and seen by general surgeon does not suspect patient has any perforation however there is likelihood of ischemic bowl possibly 2/2 hypoperfusion. we appreciate rural carrier, will continue to monitor and follow the patient. Today spoke with Dr. Cruz rural carrier jenae right side appears weak and cyanotic patient does not feel any pain, and left chest is cyanotic, the rural carrier has spoke with an rural carrier at [facility] patient is accepted waiting for a bed. Subjective Date/time seen: 01/21/24 16:45 Interval history: on 01/16 patient was seen by her urologist for infected stone and had cystoscopy and right ureteral stent placement emergently, and was found to have UTI- pyelonephritis, Patient was started on broad-spectrum antibiotics. patient went to sepsis with hypotension was started on vasopressin, norepinephrine and fluids, patient condition was worsening and patient was intubated. on 01/17 rural carrier spoke with the patient's family and recommended to add another pressor and also discussed the long-term care and family has decided to place the patient DNR. patient clinical symptoms are improving her BP is trending up and currently requiring only one pressure, however her Sr Cr remains elevated suspect ATN 2/2 hypotension, patient have temporary dialysis to improver her kidney function, also there was concern that patient may have injury her intestine, CT scan of abdomen did not show any perforation and seen by general surgeon does not suspect patient has any perforation however there is likelihood of ischemic bowl possibly 2/2 hypoperfusion. we appreciate rural carrier, will continue to monitor and follow the patient. Today spoke with Dr. Cruz rural carrier patiet right side appears weak and cyanotic patient does not feel any pain, and left chest is cyanotic, the rural carrier has spoke with an rural carrier at [facility] patient is accepted waiting for a bed. Review of Systems Review of Systems: ROS unobtainable: Yes unobtainable due to endotracheal tube Exam Narrative: Morbidly obese Patient is comfortable, NAD HEENT: ET tube in place LUNGS:CTA HEART: RR S1S2 ABD: BS+, Soft and nontender Lower extremities: no edema SKIN: nonjaundiced Neuro: On vent and sedated. Objective Data Vital Signs Vital Signs: Vital Signs - 24 hr 01/20/24 17:05 01/20/24 17:59 01/20/24 18:00 Temperature Pulse Rate 84 77 77 Respiratory Rate 18 Blood Pressure Pulse Oximetry 98 Oxygen Delivery Mechanical Ventilation Fraction of Inspired Oxygen 40 01/20/24 18:00 01/20/24 18:00 01/20/24 20:09 Temperature 37.6 C H Pulse Rate 77 78 75 Respiratory Rate 18 18 Blood Pressure 141/72 H Pulse Oximetry 98 97 Oxygen Delivery Mechanical Ventilation Fraction of Inspired Oxygen 40 01/20/24 20:00 01/20/24 20:00 01/20/24 22:00 Temperature Pulse Rate 76 76 77 Respiratory Rate 18 18 18 Blood Pressure Pulse Oximetry Oxygen Delivery Fraction of Inspired Oxygen 01/20/24 22:00 01/20/24 20:00 01/20/24 20:00 Temperature 37.7 C H Pulse Rate 77 76 Respiratory Rate 18 18 Blood Pressure 147/78 H Pulse Oximetry 97 Oxygen Delivery Fraction of Inspired Oxygen 40 01/20/24 22:00 01/20/24 20:00 01/20/24 23:17 Temperature 37.8 C H Pulse Rate 77 73 Respiratory Rate 18 Blood Pressure 126/66 Pulse Oximetry 97 94 Oxygen Delivery Mechanical Ventilation Mechanical Ventilation Fraction of Inspired Oxygen 40 40 01/20/24 20:00 01/20/24 22:00 01/21/24 00:00 Temperature Pulse Rate 76 77 73 Respiratory Rate Blood Pressure Pulse Oximetry Oxygen Delivery Fraction of Inspired Oxygen 01/21/24 00:00 01/21/24 00:00 01/21/24 02:20 Temperature Pulse Rate 77 Respiratory Rate Blood Pressure Pulse Oximetry 93 Oxygen Delivery Mechanical Ventilation Mechanical Ventilation Fraction of Inspired Oxygen 40 40 40 01/21/24 00:00 01/21/24 02:00 01/21/24 04:00 Temperature Pulse Rate 76 76 79 Respiratory Rate 18 18 18 Blood Pressure Pulse Oximetry Oxygen Delivery Fraction of Inspired Oxygen 01/21/24 00:00 01/21/24 02:00 01/21/24 03:00 Temperature Pulse Rate 76 76 79 Respiratory Rate 18 18 18 Blood Pressure Pulse Oximetry Oxygen Delivery Fraction of Inspired Oxygen 01/21/24 04:00 01/21/24 00:00 01/21/24 05:02 Temperature 37.8 C H Pulse Rate 79 76 77 Respiratory Rate 18 18 Blood Pressure 142/77 H Pulse Oximetry 94 94 Oxygen Delivery Mechanical Ventilation Fraction of Inspired Oxygen 40 01/21/24 02:00 01/21/24 04:00 01/21/24 02:00 Temperature 38.0 C H 38.1 C H Pulse Rate 76 79 76 Respiratory Rate 18 18 Blood Pressure 145/76 H 125/70 Pulse Oximetry 94 94 Oxygen Delivery Fraction of Inspired Oxygen 01/21/24 04:00 01/21/24 04:00 01/21/24 04:00 Temperature Pulse Rate 77 Respiratory Rate Blood Pressure Pulse Oximetry Oxygen Delivery Mechanical Ventilation Fraction of Inspired Oxygen 40 40 01/21/24 06:00 01/21/24 06:00 01/21/24 06:00 Temperature 38.2 C H Pulse Rate 79 79 79 Respiratory Rate 18 18 18 Blood Pressure 104/56 L Pulse Oximetry 96 Oxygen Delivery Fraction of Inspired Oxygen 01/21/24 06:00 01/21/24 08:26 01/21/24 08:00 Temperature 37.8 C H Pulse Rate 79 76 82 Respiratory Rate 18 Blood Pressure 121/72 Pulse Oximetry 97 96 Oxygen Delivery Mechanical Ventilation Fraction of Inspired Oxygen 40 01/21/24 08:31 01/21/24 08:31 01/21/24 08:45 Temperature Pulse Rate 78 80 Respiratory Rate Blood Pressure 108/64 106/72 Pulse Oximetry Oxygen Delivery Fraction of Inspired Oxygen 40 01/21/24 09:15 01/21/24 09:30 01/21/24 09:45 Temperature Pulse Rate 85 87 94 Respiratory Rate Blood Pressure 116/76 109/76 120/91 H Pulse Oximetry Oxygen Delivery Fraction of Inspired Oxygen 01/21/24 10:30 01/21/24 10:45 01/21/24 11:00 Temperature Pulse Rate 98 98 98 Respiratory Rate Blood Pressure 101/75 97/71 L 97/73 L Pulse Oximetry Oxygen Delivery Fraction of Inspired Oxygen 01/21/24 11:15 01/21/24 11:30 01/21/24 11:45 Temperature Pulse Rate 98 102 H 101 H Respiratory Rate Blood Pressure 95/73 L 104/77 84/63 L Pulse Oximetry Oxygen Delivery Fraction of Inspired Oxygen 01/21/24 09:00 01/21/24 08:00 01/21/24 10:00 Temperature 37.8 C H 38.1 C H Pulse Rate 82 76 106 H Respiratory Rate 18 24 H Blood Pressure 106/74 121/72 111/76 Pulse Oximetry 97 98 Oxygen Delivery Fraction of Inspired Oxygen 01/21/24 08:00 01/21/24 08:00 01/21/24 10:00 Temperature Pulse Rate 76 106 H Respiratory Rate 18 18 Blood Pressure Pulse Oximetry Oxygen Delivery Fraction of Inspired Oxygen 40 01/21/24 10:00 01/21/24 10:15 01/21/24 10:50 Temperature Pulse Rate 106 H 108 H 96 Respiratory Rate Blood Pressure 111/76 116/81 Pulse Oximetry 97 Oxygen Delivery Mechanical Ventilation Fraction of Inspired Oxygen 40 01/21/24 08:00 01/21/24 10:00 01/21/24 11:32 Temperature Pulse Rate 77 109 H 101 H Respiratory Rate 29 H Blood Pressure Pulse Oximetry Oxygen Delivery Fraction of Inspired Oxygen 01/21/24 11:33 01/21/24 11:43 01/21/24 11:46 Temperature Pulse Rate 101 H 102 H 102 H Respiratory Rate 29 H 27 H Blood Pressure 104/68 Pulse Oximetry Oxygen Delivery Fraction of Inspired Oxygen 01/21/24 11:46 01/21/24 12:01 01/21/24 12:06 Temperature 38.4 C H Pulse Rate 102 H 112 H 90 Respiratory Rate 27 H 27 H Blood Pressure 80/64 L 101/61 Pulse Oximetry 95 Oxygen Delivery Fraction of Inspired Oxygen 01/21/24 12:00 01/21/24 12:00 01/21/24 12:00 Temperature 38.4 C H Pulse Rate 102 H 94 Respiratory Rate 16 Blood Pressure 98/69 L Pulse Oximetry 98 Oxygen Delivery Fraction of Inspired Oxygen 40 01/21/24 08:00 01/21/24 12:00 01/21/24 14:00 Temperature Pulse Rate 91 Respiratory Rate Blood Pressure Pulse Oximetry 97 96 Oxygen Delivery Mechanical Ventilation Mechanical Ventilation Fraction of Inspired Oxygen 40 40 01/21/24 14:00 01/21/24 14:44 01/21/24 14:44 Temperature 38.3 C H Pulse Rate 95 91 90 Respiratory Rate 16 16 16 Blood Pressure 108/72 Pulse Oximetry 99 Oxygen Delivery Fraction of Inspired Oxygen 01/21/24 13:26 01/21/24 13:26 01/21/24 14:04 Temperature Pulse Rate 92 90 93 Respiratory Rate 17 17 Blood Pressure Pulse Oximetry 96 Oxygen Delivery Mechanical Ventilation Fraction of Inspired Oxygen 45 Intake/Output Intake/Output: Intake & Output 01/18/24 01/19/24 01/20/24 01/21/24 23:59 23:59 23:59 23:59 Intake Total 6609.8 5378.0 1475.9 507.0 Output Total 200 1135 3378 2925 Balance 6409.8 4243.0 -1902.1 -2418.0 Meds/Results Medications: Active Medications Generic Name Dose Route Start Last Admin Trade Name Freq PRN Reason Stop Dose Admin Dextrose 12.5 gm 01/20/24 08:35 Dextrose 50% 25 Gm/50 Ml Syringe IV PUSH PRN PRN Hypoglycemia Protocol Epoetin Brent-epbx 10,000 units 01/21/24 20:00 01/21/24 10:53 Epoetin Brent-Epbx 10,000 Units/Ml Vial IV PUSH 01/21/24 20:01 10,000 units ONCE ONE Administration Glucagon 1 mg 01/20/24 08:35 Glucagon For Inj 1 Mg Vial IM PRN PRN Hypoglycemia Protocol Glucose 15 gm 01/20/24 08:35 Glucose Oral Gel 15 Gm Of Glucse In 37.5 Gm Tube PO PRN PRN Hypoglycemia Protocol Fentanyl Citrate 2,500 mcg in 250 mls @ 5 mls/hr 01/17/24 22:35 01/21/24 14:44 Fentanyl 2,500 Mcg/Ns 250 Ml IV CONT 50 mcg/hr .Q50H TANNA 5 mls/hr Titration Protocol 50 MCG/HR Midazolam HCl 100 mg in 100 mls @ 2 mls/hr 01/17/24 22:35 01/21/24 14:44 Versed 100 Mg/Ns 100 Ml IV CONT 2 mg/hr .Q50H TANNA 2 mls/hr Titration Protocol 2 MG/HR Aztreonam 1 gm/ Sodium 50 mls @ 100 mls/hr 01/19/24 18:00 01/21/24 06:08 Chloride IVPB Infused Q12H TANNA Infusion Albumin Human 50 mls @ 999 mls/hr 01/19/24 12:02 Albutein IVPB 02/18/24 12:01 Q10M PRN HYPOTENSION Dextrose 1,000 mls @ 100 mls/hr 01/20/24 08:35 Dextrose 5% 1,000 Ml IVPB PRN PRN Hypoglycemia Protocol Insulin Aspart 2 - 5 units 01/20/24 08:35 01/21/24 12:01 Insulin Aspart (*Bkc) 100 Units/Ml SUB-Q Not Given Q4H [facility] Protocol Multi-Ingred Cream/Lotion/Oil/Oint 1 applic 01/18/24 09:00 01/21/24 10:08 Mineral Oil/White Petrolatum Ointment EACH EYE 1 applic Q12HR TANNA Administration Nabumetone 750 mg 01/17/24 21:00 Nabumetone 750 Mg Tablet PO Q12HR TANNA Ondansetron HCl 4 mg 01/17/24 12:42 01/17/24 12:51 Ondansetron Inj 4 Mg/2 Ml Vial IV PUSH 4 mg Q4H PRN Administration Nausea Pantoprazole Sodium 40 mg 01/19/24 09:00 01/21/24 10:07 Pantoprazole Sodium Iv 40 Mg Vial IV PUSH 40 mg Q12HR TANNA Administration Sodium Chloride 10 ml 01/17/24 22:00 01/21/24 13:27 Central Line Flush IV PUSH 10 ml Q8HR TNANA Administration Sodium Chloride 20 ml 01/17/24 16:51 Central Line Flush IV PUSH PRN PRN after blood draws Tolnaftate 1 applic 01/20/24 09:00 01/21/24 10:07 Tolnaftate 1% Powder 45 Gm Btl TOPICAL 1 applic Q12HR TANNA Administration Vancomycin HCl 1 each 01/21/24 09:37 Vancomycin For Hemodialysis IVPB PRN PRN Vancomycin Protocol Radiology Results: ITS Impressions Abdomen/Pelvis CT 01/17/24 10:23 IMPRESSION: 1. 11 mm stone at right ureteropelvic junction with mild right hydronephrosis. 2. 1 mm nonobstructing left kidney stone. 3. 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 Ureter Stent X-Ray 01/17/24 15:20 IMPRESSION: 1. Persistent stone at the right ureteropelvic junction with placement of a right internal ureteral stent in expected position. Is unclear the stone has been removed on the final image and would correlate with procedure note for further detail. Renal Ultrasound 01/17/24 19:03 IMPRESSION: 1. 7.2 cm left renal cyst. Otherwise normal kidneys with no hydronephrosis. Chest/Abdomen/Pelvis CT 01/19/24 09:48 IMPRESSION: 1. Patchy airspace opacities in right lung upper lobe, consistent with atelectasis versus pneumonia. 2. Small pleural effusions, right worse than left. 3. Small volume of ascites. 4. 8 mm stone in right renal pelvis with right internal ureteral stent in expected position. 5. 2 mm nonobstructing left kidney stone. Abdomen X-Ray 01/20/24 14:55 IMPRESSION: 1. No dilated loops of bowel to suggest obstruction. Chest X-Ray 01/21/24 06:08 IMPRESSION: 1. Airspace opacities in the lower lung zones with improvement on the right and worsening on the left, consistent with atelectasis versus pneumonia. 2. Stable small left pleural effusion. 3. Cardiomegaly. Labs Labs: Laboratory Results - last 24 hr 01/20/24 01/21/24 01/21/24 20:15 00:09 04:21 WBC RBC Hgb Hct MCV MCH MCHC RDW Plt Count MPV Immature Gran % (Auto) Neut % (Auto) Lymph % (Auto) Canadian % (Auto) Eos % (Auto) Baso % (Auto) Lymph # (Auto) [place] # (Auto) Eos # (Auto) Baso # (Auto) Abs Immat Gran (auto) Absolute Neuts (auto) Absolute Nucleated RBC Nucleated RBC % Dohle Bodies Platelet Estimate % Immature Plt Fraction Schistocytes PT INR APTT Puncture Site ABG pH ABG pCO2 ABG pO2 ABG PO2/FiO2 Ratio ABG HCO3 ABG O2 Saturation ABG O2 Content ABG Base Excess A-a Gradient Oxyhemoglobin Carboxyhemoglobin Methemoglobin Reduced Hemoglobin Total Hemoglobin O2 Delivery Device O2 Liters/Min Minute Volume Vent Rate Vent Mode FiO2 Tidal Volume PEEP Peak Inspir Pressure Pressure Support Sodium Potassium Chloride Carbon Dioxide Anion Gap BUN Creatinine Estim Creat Clear Calc Estimated GFR Glucose POC Capillary Glucose 189 H 183 H 191 H Calcium Phosphorus Magnesium Total Bilirubin AST ALT Alkaline Phosphatase Total Protein Albumin Random Vancomycin 01/21/24 01/21/24 01/21/24 05:06 06:20 10:12 WBC 32.2 H RBC 2.98 L Hgb 9.7 L Hct 29.4 L MCV 98.7 MCH 32.6 MCHC 33.0 RDW 14.5 Plt Count 49 L MPV 11.4 H Immature Gran % (Auto) 6.0 H Neut % (Auto) 74.4 H Lymph % (Auto) 13.0 L Canadian % (Auto) 6.3 Eos % (Auto) 0.1 Baso % (Auto) 0.2 Lymph # (Auto) 4.17 H Canadian # (Auto) 2.0 H Eos # (Auto) 0.0 Baso # (Auto) 0.1 Abs Immat Gran (auto) 1.94 H Absolute Neuts (auto) 23.9 H Absolute Nucleated RBC 0.430 H Nucleated RBC % 1.3 H Dohle Bodies Present Platelet Estimate Decreased % Immature Plt Fraction 12.0 H Schistocytes None seen PT 16.6 H INR 1.3 APTT 26.5 Puncture Site Right brachial ABG pH 7.497 H ABG pCO2 37.7 ABG pO2 84.7 ABG PO2/FiO2 Ratio 2.12 ABG HCO3 28.5 H ABG O2 Saturation 97.1 ABG O2 Content 14.4 L ABG Base Excess 5.1 A-a Gradient 157.1 Oxyhemoglobin 96.1 Carboxyhemoglobin 0.4 Methemoglobin 0.2 Reduced Hemoglobin 3.3 Total Hemoglobin 10.6 L O2 Delivery Device Ventilator O2 Liters/Min Not Reportable Minute Volume Not Reportable Vent Rate 18 Vent Mode Cmv FiO2 40 Tidal Volume 400 PEEP 8 Peak Inspir Pressure Not Reportable Pressure Support Not Reportable Sodium 137 Potassium 3.7 Chloride 98 Carbon Dioxide 29 Anion Gap 10 BUN 37 H Creatinine 2.40 H Estim Creat Clear Calc 21 Estimated GFR 19 L Glucose 195 H POC Capillary Glucose 184 H Calcium 8.5 Phosphorus 1.9 L Magnesium 2.1 Total Bilirubin 1.6 H AST 219 H ALT 295 H Alkaline Phosphatase 233 H Total Protein 5.0 L Albumin 2.8 L Random Vancomycin 01/21/24 01/21/24 01/21/24 11:58 13:27 16:10 WBC RBC Hgb Hct MCV MCH MCHC RDW Plt Count MPV Immature Gran % (Auto) Neut % (Auto) Lymph % (Auto) Canadian % (Auto) Eos % (Auto) Baso % (Auto) Lymph # (Auto) [place] # (Auto) Eos # (Auto) Baso # (Auto) Abs Immat Gran (auto) Absolute Neuts (auto) Absolute Nucleated RBC Nucleated RBC % Dohle Bodies Platelet Estimate % Immature Plt Fraction Schistocytes PT INR APTT Puncture Site ABG pH ABG pCO2 ABG pO2 ABG PO2/FiO2 Ratio ABG HCO3 ABG O2 Saturation ABG O2 Content ABG Base Excess A-a Gradient Oxyhemoglobin Carboxyhemoglobin Methemoglobin Reduced Hemoglobin Total Hemoglobin O2 Delivery Device O2 Liters/Min Minute Volume Vent Rate Vent Mode FiO2 Tidal Volume PEEP Peak Inspir Pressure Pressure Support Sodium Potassium Chloride Carbon Dioxide Anion Gap BUN Creatinine Estim Creat Clear Calc Estimated GFR Glucose POC Capillary Glucose 145 H 221 H Calcium Phosphorus Magnesium Total Bilirubin AST ALT Alkaline Phosphatase Total Protein Albumin Random Vancomycin 10.8
[2024-01-21 21:38] LABS: Glucose Point of Care 169 mg/dl (65-105)
[2024-01-22] VITALS (25 sets, daily range): BP systolic 111–143; BP diastolic 51–79; PULSE 64–99; RESP 16–23; TEMP 38.2–38.8; O2SAT 93–95
[2024-01-22 00:53] LABS: Glucose Point of Care 167 mg/dl (65-105)
[2024-01-22 05:27] LABS: Hemoglobin 9.4 g/dL (12.0-15.0); Immature Platelet Fraction Pct 19.9 % (0.9-11.2); Mean Corpuscular HGB Conc 32.4 g/dl (32-36); Mean Corpuscular Hemoglobin 32.2 pg (26-34); Mean Corpuscular Volume 99.3 fl (80-100); Mean Platelet Volume 13.1 fl (7.4-10.4); Platelet Count Result 45 k/mm3 (150-375); Red Blood Count 2.92 M/mm3 (4.2-5.4); Red Cell Distribution Width 14.9 % (11.5-14.5); White Blood Count 43.8 K/mm3 (4.5-10.0)
[2024-01-22] MEDS: AZTREONAM 1 GM in SODIUM CHLORIDE 0.9% IV 50 ML 100 ML IVPB ×2 (05:29→18:45)
[2024-01-22] MEDS: CENTRAL LINE FLUSH 10 ML IV PUSH ×3 (05:30→20:27)
[2024-01-22 05:41] LABS: INR 1.3; Prothrombin Time 16.5 Seconds (11.1-14.7)
[2024-01-22 05:42] LABS: Partial Thromboplastin Time 26.6 Seconds (22.3-36.8)
[2024-01-22 05:43] LABS: Anion Gap 6 mmol/L (4-12); Blood Urea Nitrogen 37 mg/dL (7-17); Calcium 8.7 mg/dL (8.4-10.2); Carbon Dioxide 30 mmol/L (22-30); Chloride 101 mmol/L (98-107); Estimated CRCL calculation 22 ml/min; Estimated Glomerular Filt Rate 20; Glucose 167 mg/dL (65-110); Potassium 3.4 mmol/L (3.4-5.0); Sodium 137 mmol/L (137-145)
[2024-01-22 05:43] LABS: Alveolar/Arterial O2 Gradient 103.8 mmHg; Base Excess ABG 1.9 mEq/l (+/-2.0); Carboxyhemoglobin 0.2 % THb (0-2.0); Fractional Inspired Oxygen 30 %; HCO3 ABG 25.6 mEq/l (22.0-26.0); Methemoglobin ABG 0.1 %THb (0-1.5); Oxygen Content ABG 13.7 %vol (16.0-22.0); Oxygen Saturation ABG 94.3 % (95.0-100.0); Oxyhemoglobin 93.6 % THb (90.0-100.0); PCO2 ABG 36.8 mmHg (35.0-45.0); PO2 ABG 66.9 mmHg (80.0-100.0); PO2 FiO2 Ratio Arterial Blood 2.23 %; Reduced Hemoglobin 6.1 %THb (0-5.0); Total Hemoglobin 10.4 g/dL (12.0-18.0); pH ABG 7.461 (7.350-7.450)
[2024-01-22 05:44] LABS: Arterial Blood Gas PEEP 8 cmH2O; Arterial Blood Gas Tidal Volume 400 ml; Arterial Blood Gas Vent Mode CMV; Arterial Blood Gas Ventilator rate 16 /MIN; Device VENTILATOR; Site Drawn RIGHT BRACHIAL
[2024-01-22 08:42] LABS: Phosphorus 2.7 mg/dL (2.5-4.5)
[2024-01-22] MEDS: PANTOPRAZOLE SODIUM IV 40 MG VIAL IV PUSH ×2 (08:43→20:25)
[2024-01-22] MEDS: MINERAL OIL/WHITE PETROLATUM OINTMENT 1 APPLIC EACH EYE ×2 (08:47→20:25)
[2024-01-22] MEDS: TOLNAFTATE 1% POWDER 45 GM BTL 1 APPLIC TOPICAL ×2 (08:47→20:28)
[2024-01-22 09:00] LABS: Glucose Point of Care 143 mg/dl (65-105)
--- NOTE | 2024-01-22 09:22 | WPDINTPN ---
Progress Note: A&P Assessment and Plan (1) Septic shock: Code(s): A41.9 - Sepsis, unspecified organism; R65.21 - Severe sepsis with septic shock Status: Acute Assessment and Plan: Septic shock likely related to pyelonephritis -right UPJ stone with hydronephrosis status post stent placement, also has evidence of pneumonia on the CT scan -01/16: Status post cystoscopy, right retrograde pyelogram, right ureteral stent placement 6 Camb[place] contour Patient has received significant IV fluids and now currently off -vasopressors have been weaned off -discontinue hydrocortisone -patient has multiple allergies and was started on aztreonam and vancomycin (01/16) patient did get 1 dose of ciprofloxacin in the ER -01/16: Urine cultures growing Klebsiella which is not pansensitive. I discussed with Infectious Disease pharmacist. Due to patient's multiple antibiotic allergies and the fact the patient is clinically improving we have decided to continue with aztreonam at this time 01/16: Blood cultures negative till now Continue vancomycin to cover for skin, pneumonia, 01/21 continues to have fever. WBC further increased. Will add ciprofloxacin since patient tolerated Cipro dose in the ER. (2) Acute respiratory failure: Code(s): J96.00 - Acute respiratory failure, unspecified whether with hypoxia or hypercapnia Status: Acute Assessment and Plan: Acute respiratory failure likely related to metabolic acidosis, severe septic shock, pneumonia -01/17/2024: Patient was intubated -chest x-ray reviewed shows pneumonia and ET tube in acceptable position -ABG reviewed. Continue CMV mode of ventilation, peep of 5, 40% FiO2. Decrease rate to 16 decrease tidal volume to 360 -sedated with fentanyl and Versed infusion. Daily sedation holiday (3) Pyelonephritis: Code(s): N12 - Tubulo-interstitial nephritis, not specified as acute or chronic Status: Acute Assessment and Plan: Patient presented with generalized weakness and diffuse abdominal pain, CT scan of the abdomen and pelvis showed right UPJ stone with hydronephrosis and possible pyelonephritis since UA revealed UTI -continue antibiotics as above -01/16: Status post cystoscopy, right retrograde pyelogram, right ureteral stent placement 6 Cambodian contour (4) Acute kidney injury: Code(s): N17.9 - Acute kidney failure, unspecified Status: Acute Assessment and Plan: Patient with acute kidney injury likely related to septic shock, ATN, hypotension, pyelonephritis. Patient on furosemide, spironolactone and atenolol at home. 01/18 dialysis initiated 01/19 patient was dialyzed on 3 L fluid was removed 01/20 dialyzed again in 2800 mL fluid was removed Continue dialysis as per Nephrology Off bicarb fluids now Monitor urine output electrolytes and creatinine (5) Right ureteral stone: Code(s): N20.1 - Calculus of ureter Status: Acute Assessment and Plan: 01/16: Status post cystoscopy, right retrograde pyelogram, right ureteral stent placement 6 Cambodian contour -urology following (6) Metabolic acidosis: Code(s): E87.20 - Acidosis, unspecified Status: Acute Assessment and Plan: Resolved with with bicarb and dialysis (7) Shock liver: Code(s): K72.00 - Acute and subacute hepatic failure without coma Status: Acute Assessment and Plan: Shock liver likely related to severe septic shock, hypotension, along with coagulopathy. LFTs are improving. Monitor (8) Thrombocytopenia: Code(s): D69.6 - Thrombocytopenia, unspecified Status: Acute Assessment and Plan: Thrombocytopenia likely related to septic shock 01/18 Patient was transfused 2 units of platelets since after place a dialysis catheter Monitor (9) Ischemic bowel disease: Code(s): K55.9 - Vascular disorder of intestine, unspecified Status: Acute Assessment and Plan: Patient had persistently high lactic acid level secondary to septic shock and there was concern for ischemic bowel although no obvious necrosis was seen on the CT scan. Patient now clinically improved although lactic acid has not normalized yet. On exam patient did not any bowel sounds and does suggest ileus KUB was done and was unremarkable. Patient did have a bowel movement Continue tube feed and monitor closely. General surgery is following (10) Ileus: Code(s): K56.7 - Ileus, unspecified Status: Acute Assessment and Plan: See above (11) Electrolyte abnormality: Code(s): E87.8 - Other disorders of electrolyte and fluid balance, not elsewhere classified Status: Acute Assessment and Plan: Replace low potassium (12) Coagulopathy: Code(s): D68.9 - Coagulation defect, unspecified Status: Acute Assessment and Plan: 01/18 INR 2.6. patient was transfused FFP for invasive procedures INR now improved and stable Monitor INR. Hold anticoagulation at this time (13) Limb ischemia: Code(s): I99.8 - Other disorder of circulatory system Status: Acute Assessment and Plan: Both feet are cold and mottled, unable to Doppler or palpate bilateral dorsalis pedis or posterior tibial pulses, both hands are mottled with mottling of fingers both hands This is likely secondary to septic shock requiring multiple vasopressors. Unfortunately there is no solution to this and will continue monitor and hold perfusion improved. Will hold on any imaging with contrast at this time due to renal failure (14) Skin abnormalities: Code(s): L98.9 - Disorder of the skin and subcutaneous tissue, unspecified Status: Acute Assessment and Plan: Patient has a large bruise on the lateral side of her right thigh with a large fluid blister, she has a bruise on right side of her abdominal wall. This could be bruising secondary to coagulopathy and thrombocytopenia The more concerning lesion is the large area of bruising on right breast with central area of bright redness around the nipple with superficial skin breakdown. Again this could be bruising or ischemic necrosis secondary to severe shock the patient was in Consult wound care Continue vancomycin Patient has been accepted at [facility] and is waiting bed assignment for transfer where vascular and Plastic surgery is available available. Plan DVT prophylaxis: Lovenox on hold, SCDs Stress ulcer prophylaxis: Protonix IV q.12 hours Nutrition: Advance tube feeds to 40 mL/hour Code Status: DNR Patient has been accepted at [facility] and is waiting bed assignment for transfer Critical Care Time Spent: 35 minutes Discussed with patient's , son and niece updated them with patient's condition and plan of care. I answered all questions Due to a high probability of clinically significant, life threatening deterioration, the patient required my highest level of preparedness to intervene emergently and I personally spent this critical care time directly and personally managing the patient. This critical care time included obtaining a history; examining the patient; pulse oximetry; ordering and review of studies; arranging urgent treatment with development of a management plan; evaluation of patient's response to treatment; frequent reassessment; and discussions with other providers. It was exclusive of separately billable procedures and treating other patients and teaching time. Please see Assessment and Plan section and the rest of the note for further information on patient assessment and treatment This dictation may have been done utilizing a voice recognition system. Attempts have been made to correct errors. However, there may be uncorrected grammatical, spelling, and recognitions errors present. Subjective Date/time seen: 01/22/24 Overnight events reviewed. Afebrile Continues to be on mechanical ventilation 30% FiO2 Off vasopressors Continues to be sedated with Versed and fentanyl Tolerating tube feeds Poor urine output Interval history: Reason for consult: Septic shock, pyelonephritis, kidney stones, hydronephrosis, shock liver, acute respiratory failure, thrombocytopenia Review of Systems Review of Systems: ROS unobtainable: Yes unobtainable due to endotracheal tube, unobtainable due to medical condition and unobtainable due to mental status Exam Narrative: General: Intubated and sedated HEENT:? Pupils are equal and reactive, sclera is clear. ETT in place Neck:? Supple Respiratory:? Coarse breath with crackles bilaterally, and wheezing, adequate air entry Cardiac:? S1-S2 is normal, tachycardia Abdomen:? Soft, nontender, nondistended, protuberant, absent bowel sounds Extremities:? Bilateral lower extremity edema, both feet are cold and mottled, unable to Doppler or palpate bilateral dorsalis pedis or posterior tibial pulses, both hands are cyanotic with cyanosis of fingers both hands Neuro:? Patient intubated, sedated, does not open her eyes or follow simple commands Skin:? Patient has a large bruise on the lateral side of her right thigh with fluid blister, has a bruise on right side of her abdominal wall, she has a large area of red Giovani on her right breast with superficial skin breakdown Psych:? Unable to assess Objective Data Vital Signs Vital Signs: Vital Signs - 24 hr 01/21/24 09:30 01/21/24 09:45 01/21/24 10:30 Temperature Pulse Rate 87 94 98 Respiratory Rate Blood Pressure 109/76 120/91 H 101/75 Pulse Oximetry Oxygen Delivery Fraction of Inspired Oxygen 01/21/24 10:45 01/21/24 11:00 01/21/24 11:15 Temperature Pulse Rate 98 98 98 Respiratory Rate Blood Pressure 97/71 L 97/73 L 95/73 L Pulse Oximetry Oxygen Delivery Fraction of Inspired Oxygen 01/21/24 11:30 01/21/24 11:45 01/21/24 10:00 Temperature 38.1 C H Pulse Rate 102 H 101 H 106 H Respiratory Rate 24 H Blood Pressure 104/77 84/63 L 111/76 Pulse Oximetry 98 Oxygen Delivery Fraction of Inspired Oxygen 01/21/24 10:00 01/21/24 10:00 01/21/24 10:15 Temperature Pulse Rate 106 H 106 H 108 H Respiratory Rate 18 Blood Pressure 111/76 116/81 Pulse Oximetry Oxygen Delivery Fraction of Inspired Oxygen 01/21/24 10:50 01/21/24 10:00 01/21/24 11:32 Temperature Pulse Rate 96 109 H 101 H Respiratory Rate 29 H Blood Pressure Pulse Oximetry 97 Oxygen Delivery Mechanical Ventilation Fraction of Inspired Oxygen 40 01/21/24 11:33 01/21/24 11:43 01/21/24 11:46 Temperature Pulse Rate 101 H 102 H 102 H Respiratory Rate 29 H 27 H Blood Pressure 104/68 Pulse Oximetry Oxygen Delivery Fraction of Inspired Oxygen 01/21/24 11:46 01/21/24 12:01 01/21/24 12:06 Temperature 38.4 C H Pulse Rate 102 H 112 H 90 Respiratory Rate 27 H 27 H Blood Pressure 80/64 L 101/61 Pulse Oximetry 95 Oxygen Delivery Fraction of Inspired Oxygen 01/21/24 12:00 01/21/24 12:00 01/21/24 12:00 Temperature 38.4 C H Pulse Rate 102 H 94 Respiratory Rate 16 Blood Pressure 98/69 L Pulse Oximetry 98 Oxygen Delivery Fraction of Inspired Oxygen 40 01/21/24 12:00 01/21/24 14:00 01/21/24 14:00 Temperature 38.3 C H Pulse Rate 91 95 Respiratory Rate 16 Blood Pressure 108/72 Pulse Oximetry 96 99 Oxygen Delivery Mechanical Ventilation Fraction of Inspired Oxygen 40 01/21/24 14:44 01/21/24 14:44 01/21/24 13:26 Temperature Pulse Rate 91 90 92 Respiratory Rate 16 16 17 Blood Pressure Pulse Oximetry Oxygen Delivery Fraction of Inspired Oxygen 01/21/24 13:26 01/21/24 14:04 01/21/24 17:16 Temperature Pulse Rate 90 93 88 Respiratory Rate 17 Blood Pressure Pulse Oximetry 96 98 Oxygen Delivery Mechanical Ventilation Mechanical Ventilation Fraction of Inspired Oxygen 45 40 01/21/24 16:00 01/21/24 16:00 01/21/24 18:00 Temperature 38.3 C H Pulse Rate 90 90 88 Respiratory Rate 16 16 16 Blood Pressure 103/62 Pulse Oximetry 98 Oxygen Delivery Fraction of Inspired Oxygen 01/21/24 18:00 01/21/24 16:00 01/21/24 16:00 Temperature 38.3 C H Pulse Rate 88 86 Respiratory Rate 16 Blood Pressure 97/59 L Pulse Oximetry 97 Oxygen Delivery Fraction of Inspired Oxygen 40 01/21/24 16:00 01/21/24 18:00 01/21/24 16:00 Temperature Pulse Rate 85 90 Respiratory Rate 16 Blood Pressure Pulse Oximetry 97 Oxygen Delivery Mechanical Ventilation Fraction of Inspired Oxygen 40 01/21/24 18:00 01/21/24 20:19 01/21/24 20:00 Temperature Pulse Rate 88 85 85 Respiratory Rate 16 20 Blood Pressure Pulse Oximetry 98 Oxygen Delivery Mechanical Ventilation Fraction of Inspired Oxygen 40 01/21/24 20:00 01/21/24 20:00 01/21/24 20:00 Temperature Pulse Rate 85 85 Respiratory Rate 20 Blood Pressure Pulse Oximetry 98 Oxygen Delivery Mechanical Ventilation Fraction of Inspired Oxygen 35 01/21/24 22:00 01/21/24 22:00 01/21/24 20:00 Temperature 38.1 C H Pulse Rate 85 85 85 Respiratory Rate 19 19 20 Blood Pressure 124/75 Pulse Oximetry 98 Oxygen Delivery Fraction of Inspired Oxygen 01/21/24 20:00 01/21/24 22:00 01/21/24 22:00 Temperature 38.1 C H Pulse Rate 85 85 Respiratory Rate 19 Blood Pressure 130/59 L Pulse Oximetry 96 Oxygen Delivery Fraction of Inspired Oxygen 35 01/22/24 00:29 01/22/24 00:30 01/21/24 23:07 Temperature Pulse Rate 85 86 85 Respiratory Rate 16 16 Blood Pressure Pulse Oximetry 97 Oxygen Delivery Mechanical Ventilation Fraction of Inspired Oxygen 35 01/22/24 00:00 01/22/24 00:00 01/22/24 00:00 Temperature Pulse Rate 85 Respiratory Rate Blood Pressure Pulse Oximetry 95 Oxygen Delivery Mechanical Ventilation Fraction of Inspired Oxygen 30 30 01/22/24 00:00 01/22/24 02:00 01/22/24 02:00 Temperature 38.2 C H 38.3 C H Pulse Rate 85 84 84 Respiratory Rate 16 16 Blood Pressure 118/63 111/61 Pulse Oximetry 95 95 Oxygen Delivery Fraction of Inspired Oxygen 01/22/24 02:15 01/22/24 02:15 01/22/24 02:05 Temperature Pulse Rate 84 85 83 Respiratory Rate 16 16 Blood Pressure Pulse Oximetry 95 Oxygen Delivery Mechanical Ventilation Fraction of Inspired Oxygen 30 01/22/24 04:00 01/22/24 04:00 01/22/24 05:31 Temperature Pulse Rate 86 86 87 Respiratory Rate 16 16 16 Blood Pressure Pulse Oximetry Oxygen Delivery Fraction of Inspired Oxygen 01/22/24 05:05 01/22/24 04:00 01/22/24 04:00 Temperature Pulse Rate 87 Respiratory Rate Blood Pressure Pulse Oximetry 94 95 Oxygen Delivery Mechanical Ventilation Mechanical Ventilation Fraction of Inspired Oxygen 30 30 30 01/22/24 04:00 01/22/24 04:00 01/22/24 06:00 Temperature 38.4 C H Pulse Rate 86 86 86 Respiratory Rate 16 Blood Pressure 116/51 L Pulse Oximetry 95 Oxygen Delivery Fraction of Inspired Oxygen 01/22/24 06:00 01/22/24 06:00 01/22/24 06:00 Temperature 38.4 C H Pulse Rate 86 86 86 Respiratory Rate 16 16 16 Blood Pressure 114/64 Pulse Oximetry 93 Oxygen Delivery Fraction of Inspired Oxygen 01/22/24 07:51 01/22/24 07:51 01/22/24 08:00 Temperature Pulse Rate 82 82 89 Respiratory Rate 16 16 Blood Pressure Pulse Oximetry 93 93 Oxygen Delivery Mechanical Ventilation Mechanical Ventilation Fraction of Inspired Oxygen 30 30 01/22/24 08:05 01/22/24 08:00 Temperature 38.3 C H Pulse Rate 86 86 Respiratory Rate 16 16 Blood Pressure 118/59 L Pulse Oximetry 93 Oxygen Delivery Fraction of Inspired Oxygen Intake/Output Intake/Output: Intake & Output 01/19/24 01/20/24 01/21/24 01/22/24 23:59 23:59 23:59 23:59 Intake Total 5378.0 1475.9 935.8 454.6 Output Total 1135 3378 2945 45 Balance 4243.0 -1902.1 -2009.2 409.6 Meds/Results Medications: Active Medications Generic Name Dose Route Start Last Admin Trade Name Freq PRN Reason Stop Dose Admin Dextrose 12.5 gm 01/20/24 08:35 Dextrose 50% 25 Gm/50 Ml Syringe IV PUSH PRN PRN Hypoglycemia Protocol Glucagon 1 mg 01/20/24 08:35 Glucagon For Inj 1 Mg Vial IM PRN PRN Hypoglycemia Protocol Glucose 15 gm 01/20/24 08:35 Glucose Oral Gel 15 Gm Of Glucse In 37.5 Gm Tube PO PRN PRN Hypoglycemia Protocol Fentanyl Citrate 2,500 mcg in 250 mls @ 0 mls/hr 01/17/24 22:35 01/22/24 08:00 Fentanyl 2,500 Mcg/Ns 250 Ml IV CONT 0 mcg/hr .Q0M TANNA 0 mls/hr Titration Protocol Midazolam HCl 100 mg in 100 mls @ 0 mls/hr 01/17/24 22:35 01/22/24 08:05 Versed 100 Mg/Ns 100 Ml IV CONT 0 mg/hr .Q0M TANNA 0 mls/hr Titration Protocol Aztreonam 1 gm/ Sodium 50 mls @ 100 mls/hr 01/19/24 18:00 01/22/24 07:00 Chloride IVPB Infused Q12H TANNA Infusion Albumin Human 50 mls @ 999 mls/hr 01/19/24 12:02 Albutein IVPB 02/18/24 12:01 Q10M PRN HYPOTENSION Dextrose 1,000 mls @ 100 mls/hr 01/20/24 08:35 Dextrose 5% 1,000 Ml IVPB PRN PRN Hypoglycemia Protocol Insulin Aspart 2 - 5 units 01/20/24 08:35 01/22/24 08:07 Insulin Aspart (*Bkc) 100 Units/Ml SUB-Q Not Given Q4H [facility] Protocol Multi-Ingred Cream/Lotion/Oil/Oint 1 applic 01/18/24 09:00 01/22/24 08:47 Mineral Oil/White Petrolatum Ointment EACH EYE 1 applic Q12HR TANNA Administration Nabumetone 750 mg 01/17/24 21:00 Nabumetone 750 Mg Tablet PO Q12HR TANNA Ondansetron HCl 4 mg 01/17/24 12:42 01/17/24 12:51 Ondansetron Inj 4 Mg/2 Ml Vial IV PUSH 4 mg Q4H PRN Administration Nausea Pantoprazole Sodium 40 mg 01/19/24 09:00 01/22/24 08:43 Pantoprazole Sodium Iv 40 Mg Vial IV PUSH 40 mg Q12HR TANNA Administration Sodium Chloride 10 ml 01/17/24 22:00 01/22/24 05:30 Central Line Flush IV PUSH 10 ml Q8HR TANNA Administration Sodium Chloride 20 ml 01/17/24 16:51 Central Line Flush IV PUSH PRN PRN after blood draws Tolnaftate 1 applic 01/20/24 09:00 01/22/24 08:47 Tolnaftate 1% Powder 45 Gm Btl TOPICAL 1 applic Q12HR TANNA Administration Vancomycin HCl 1 each 01/21/24 09:37 Vancomycin For Hemodialysis IVPB PRN PRN Vancomycin Protocol Radiology Results: ITS Impressions Abdomen/Pelvis CT 01/17/24 10:23 IMPRESSION: 1. 11 mm stone at right ureteropelvic junction with mild right hydronephrosis. 2. 1 mm nonobstructing left kidney stone. 3. 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 Ureter Stent X-Ray 01/17/24 15:20 IMPRESSION: 1. Persistent stone at the right ureteropelvic junction with placement of a right internal ureteral stent in expected position. Is unclear the stone has been removed on the final image and would correlate with procedure note for further detail. Renal Ultrasound 01/17/24 19:03 IMPRESSION: 1. 7.2 cm left renal cyst. Otherwise normal kidneys with no hydronephrosis. Chest/Abdomen/Pelvis CT 01/19/24 09:48 IMPRESSION: 1. Patchy airspace opacities in right lung upper lobe, consistent with atelectasis versus pneumonia. 2. Small pleural effusions, right worse than left. 3. Small volume of ascites. 4. 8 mm stone in right renal pelvis with right internal ureteral stent in expected position. 5. 2 mm nonobstructing left kidney stone. Abdomen X-Ray 01/20/24 14:55 IMPRESSION: 1. No dilated loops of bowel to suggest obstruction. Chest X-Ray 01/22/24 08:09 IMPRESSION: 1. Stable airspace opacities in the lower lung zones, consistent with atelectasis versus pneumonia. 2. Stable small left pleural effusion. 3. Cardiomegaly. Labs Labs: Laboratory Results - last 24 hr 01/21/24 01/21/24 01/21/24 10:12 11:58 13:27 WBC RBC Hgb Hct MCV MCH MCHC RDW Plt Count MPV % Immature Plt Fraction PT INR APTT Puncture Site ABG pH ABG pCO2 ABG pO2 ABG PO2/FiO2 Ratio ABG HCO3 ABG O2 Saturation ABG O2 Content ABG Base Excess A-a Gradient Oxyhemoglobin Carboxyhemoglobin Methemoglobin Reduced Hemoglobin Total Hemoglobin O2 Delivery Device O2 Liters/Min Minute Volume Vent Rate Vent Mode FiO2 Tidal Volume PEEP Peak Inspir Pressure Pressure Support Sodium Potassium Chloride Carbon Dioxide Anion Gap BUN Creatinine Estim Creat Clear Calc Estimated GFR Glucose POC Capillary Glucose 184 H 145 H Calcium Phosphorus Magnesium Random Vancomycin 10.8 01/21/24 01/21/24 01/22/24 16:10 20:57 00:29 WBC RBC Hgb Hct MCV MCH MCHC RDW Plt Count MPV % Immature Plt Fraction PT INR APTT Puncture Site ABG pH ABG pCO2 ABG pO2 ABG PO2/FiO2 Ratio ABG HCO3 ABG O2 Saturation ABG O2 Content ABG Base Excess A-a Gradient Oxyhemoglobin Carboxyhemoglobin Methemoglobin Reduced Hemoglobin Total Hemoglobin O2 Delivery Device O2 Liters/Min Minute Volume Vent Rate Vent Mode FiO2 Tidal Volume PEEP Peak Inspir Pressure Pressure Support Sodium Potassium Chloride Carbon Dioxide Anion Gap BUN Creatinine Estim Creat Clear Calc Estimated GFR Glucose POC Capillary Glucose 221 H 169 H 167 H Calcium Phosphorus Magnesium Random Vancomycin 01/22/24 01/22/24 01/22/24 05:13 05:17 05:18 WBC 43.8 H RBC 2.92 L Hgb 9.4 L Hct 29.0 L MCV 99.3 MCH 32.2 MCHC 32.4 RDW 14.9 H Plt Count 45 L MPV 13.1 H % Immature Plt Fraction 19.9 H PT 16.5 H INR 1.3 APTT 26.6 Puncture Site Right brachial ABG pH 7.461 H ABG pCO2 36.8 ABG pO2 66.9 L ABG PO2/FiO2 Ratio 2.23 ABG HCO3 25.6 ABG O2 Saturation 94.3 L ABG O2 Content 13.7 L ABG Base Excess 1.9 A-a Gradient 103.8 Oxyhemoglobin 93.6 Carboxyhemoglobin 0.2 Methemoglobin 0.1 Reduced Hemoglobin 6.1 H Total Hemoglobin 10.4 L O2 Delivery Device Ventilator O2 Liters/Min Not Reportable Minute Volume Not Reportable Vent Rate 16 Vent Mode Cmv FiO2 30 Tidal Volume 400 PEEP 8 Peak Inspir Pressure Not Reportable Pressure Support Not Reportable Sodium 137 Potassium 3.4 Chloride 101 Carbon Dioxide 30 Anion Gap 6 BUN 37 H Creatinine 2.30 H Estim Creat Clear Calc 22 Estimated GFR 20 L Glucose 167 H POC Capillary Glucose Calcium 8.7 Phosphorus 2.7 Magnesium 2.0 Random Vancomycin 01/22/24 08:00 WBC RBC Hgb Hct MCV MCH MCHC RDW Plt Count MPV % Immature Plt Fraction PT INR APTT Puncture Site ABG pH ABG pCO2 ABG pO2 ABG PO2/FiO2 Ratio ABG HCO3 ABG O2 Saturation ABG O2 Content ABG Base Excess A-a Gradient Oxyhemoglobin Carboxyhemoglobin Methemoglobin Reduced Hemoglobin Total Hemoglobin O2 Delivery Device O2 Liters/Min Minute Volume Vent Rate Vent Mode FiO2 Tidal Volume PEEP Peak Inspir Pressure Pressure Support Sodium Potassium Chloride Carbon Dioxide Anion Gap BUN Creatinine Estim Creat Clear Calc Estimated GFR Glucose POC Capillary Glucose 143 H Calcium Phosphorus Magnesium Random Vancomycin Quality VTE Prophylaxis VTE prophylaxis: pharmacologic ordered
--- NOTE | 2024-01-22 09:33 | PC.NURSE ---
Spoke with Juventino with [facility] transfer center, updated vitals and labs provided. No bed available at this time. May have bed after rounds completed and patients potentially move. Will contact us later this shift.
[2024-01-22] MEDS: POTASSIUM CHLORIDE 20 MEQ PACKET (FOR LIQUID) 40 MEQ FEED TUBE (09:50)
[2024-01-22] MEDS: CIPROFLOXACIN 400 MG/D5W 200ML 200 ML 200 MG IVPB (11:00)
[2024-01-22 11:37] LABS: Glucose Point of Care 179 mg/dl (65-105)
--- NOTE | 2024-01-22 12:08 | P.PNNP_ITS ---
Progress Note: A&P Assessment and Plan (1) Acute kidney injury: Code(s): N17.9 - Acute kidney failure, unspecified Status: Acute Assessment and Plan: * due to ATN with multifactorial etiology: * hemodynamic instability/shock * infection/sepsis * BP medications prior to admission * diuretics prior to admission * obstructive uropathy * nephrolithiasis * s/p adequate fluid resuscitation * off vasopressor support (levophed) * given worsening creatinine, metabolic acidosis, and anuria -- initiated on [employer]/hemodialysis * HD holiday today * possivle next HD tomorrow or Tuesday * follow repeat labs and UOP for potential renal recovery (2) Septic shock: Code(s): A41.9 - Sepsis, unspecified organism; R65.21 - Severe sepsis with septic shock Status: Acute Assessment and Plan: * due to pyelonephritis in association with obstructing right UPJ stone * s/p IVF resuscitation and was requiring significant vasopressor support * weaned of levophed, vasopressin, juanis-synephrine and epinephrine * s/p cystoscopy, right retrograde pyelogram, right ureteral stent placement on 12/29 * follow culture data - results noted * on IV antibiotics (3) Acute respiratory failure: Code(s): J96.00 - Acute respiratory failure, unspecified whether with hypoxia or hypercapnia Status: Acute Assessment and Plan: * secondary to metabolic acidosis and severe septic shock * continue ventilator support * wean when more stable (4) Metabolic acidosis: Code(s): E87.20 - Acidosis, unspecified Status: Acute Assessment and Plan: * improving/resolved * due to AMARIS/ARF and severe lactic acidosis * repeat CT scan without evidence of bowel ischemia * s/p multiple doses of sodium bicarb IV pushes * off bicarb infusion * dialysis helping * follow trend of lactic acid (5) Pyelonephritis: Code(s): N12 - Tubulo-interstitial nephritis, not specified as acute or chronic Status: Acute Assessment and Plan: * as evidence by symptoms and imaging findings CT scan of the abdomen and pelvis with right UPJ stone with hydronephrosis and possible pyelonephritis given UA findings * on antibiotic therapy * s/p cystoscopy, right retrograde pyelogram, right ureteral stent placement on 01/16 (6) Right ureteral stone: Code(s): N20.1 - Calculus of ureter Status: Acute Assessment and Plan: * Urology following * see #4 (7) Shock liver: Code(s): K72.00 - Acute and subacute hepatic failure without coma Status: Acute Assessment and Plan: * due to severe sepsis and shock * follow trend of LFTs and INR (8) Thrombocytopenia: Code(s): D69.6 - Thrombocytopenia, unspecified Status: Acute Assessment and Plan: * likely related to septic shock * follow trend of platelets Will continue to follow. Subjective Date/time seen: 01/22/24 12:08 Interval history: Follow-up for acute kidney injury/acute renal failure. Tolerated dialysis treatment yesterday without any issue or problems; remains intubated/sedated and on mechanical ventilation; hemodynamically stable without the need for vasopressor support; still not making much urine output; due to concerning skin lesions secondary to ischemia, possible transfer to [facility] when bed is available; febrile at this time; daughter at bedside and we discussed the situation. Exam Narrative: General: elderly female intubated/sedated and on mechanical ventilation Heart: normal S1 and S2; no rub Lungs: coarse breath sounds with a few bibasilar crackles Abdomen: soft, nontender, nondistended, positive bowel sounds Extremities: 1+ edema noted bilaterally Skin: purple discoloration in feet/toes/finger tips Objective Data Vital Signs Vital Signs: Vital Signs Temp Pulse Resp BP Pulse Ox O2 Del Method FiO2 01/22/24 12:00 101.2 F H 97 16 140/72 93 30 01/22/24 11:12 93 17 94 Mechanical Ventilation 01/22/24 10:00 66 19 01/22/24 10:00 101.2 F H 89 18 130/79 94 01/22/24 10:00 97 01/22/24 08:00 30 01/22/24 08:00 86 01/22/24 08:00 100.9 F H 86 16 118/59 L 93 01/22/24 08:05 86 16 01/22/24 08:00 89 16 01/22/24 07:51 82 16 93 Mechanical Ventilation 30 01/22/24 07:51 82 93 Mechanical Ventilation 30 01/22/24 06:00 86 16 01/22/24 06:00 86 16 01/22/24 06:00 101.2 F H 86 16 114/64 93 01/22/24 06:00 86 01/22/24 04:00 86 01/22/24 04:00 101.1 F H 86 16 116/51 L 95 01/22/24 04:00 30 01/22/24 04:00 95 Mechanical Ventilation 30 01/22/24 05:05 87 94 Mechanical Ventilation 30 01/22/24 05:31 87 16 01/22/24 04:00 86 16 01/22/24 04:00 86 16 01/22/24 02:05 83 95 Mechanical Ventilation 30 01/22/24 02:15 85 16 01/22/24 02:15 84 16 01/22/24 02:00 100.9 F H 84 16 111/61 95 01/22/24 02:00 84 01/22/24 00:00 100.7 F H 85 16 118/63 95 01/22/24 00:00 85 01/22/24 00:00 30 01/22/24 00:00 95 Mechanical Ventilation 30 01/21/24 23:07 85 97 Mechanical Ventilation 35 01/22/24 00:30 86 16 01/22/24 00:29 85 16 01/21/24 22:00 100.6 F H 85 19 130/59 L 96 01/21/24 22:00 85 01/21/24 20:00 35 01/21/24 20:00 100.6 F H 85 20 124/75 98 01/21/24 22:00 85 19 01/21/24 22:00 85 19 01/21/24 20:00 85 01/21/24 20:00 98 Mechanical Ventilation 35 01/21/24 20:00 85 20 01/21/24 20:00 85 20 01/21/24 20:19 85 98 Mechanical Ventilation 40 01/21/24 18:00 88 16 01/21/24 18:00 85 01/21/24 18:00 101 F H 88 16 97/59 L 97 01/21/24 18:00 88 16 01/21/24 17:16 88 98 Mechanical Ventilation 40 Intake/Output Intake/Output: Intake & Output 01/19/24 01/20/24 01/21/24 01/22/24 23:59 23:59 23:59 23:59 Intake Total 5378.0 1475.9 935.8 654.6 Output Total 1135 3378 2945 45 Balance 4243.0 -1902.1 -2009.2 609.6 Meds/Results Medications: Active Medications Generic Name Dose Route Start Last Admin Trade Name Freq PRN Reason Stop Dose Admin Dextrose 12.5 gm 01/20/24 08:35 Dextrose 50% 25 Gm/50 Ml Syringe IV PUSH PRN PRN Hypoglycemia Protocol Glucagon 1 mg 01/20/24 08:35 Glucagon For Inj 1 Mg Vial IM PRN PRN Hypoglycemia Protocol Glucose 15 gm 01/20/24 08:35 Glucose Oral Gel 15 Gm Of Glucse In 37.5 Gm Tube PO PRN PRN Hypoglycemia Protocol Fentanyl Citrate 2,500 mcg in 250 mls @ 0 mls/hr 01/17/24 22:35 01/22/24 14:00 Fentanyl 2,500 Mcg/Ns 250 Ml IV CONT 0 mcg/hr .Q0M TANNA 0 mls/hr Titration Protocol Midazolam HCl 100 mg in 100 mls @ 0 mls/hr 01/17/24 22:35 01/22/24 14:00 Versed 100 Mg/Ns 100 Ml IV CONT 0 mg/hr .Q0M TANNA 0 mls/hr Titration Protocol Aztreonam 1 gm/ Sodium 50 mls @ 100 mls/hr 01/19/24 18:00 01/22/24 07:00 Chloride IVPB Infused Q12H TANNA Infusion Albumin Human 50 mls @ 999 mls/hr 01/19/24 12:02 Albutein IVPB 02/18/24 12:01 Q10M PRN HYPOTENSION Dextrose 1,000 mls @ 100 mls/hr 01/20/24 08:35 Dextrose 5% 1,000 Ml IVPB PRN PRN Hypoglycemia Protocol Ciprofloxacin/Dextrose 200 mls @ 200 mls/hr 01/22/24 10:00 01/22/24 12:00 Cipro 400 Mg/D5w 200 Ml IVPB Infused Q24H TANNA Infusion Insulin Aspart 2 - 5 units 01/20/24 08:35 01/22/24 11:39 Insulin Aspart (*Bkc) 100 Units/Ml SUB-Q Not Given Q4H TANNA Protocol Multi-Ingred Cream/Lotion/Oil/Oint 1 applic 01/18/24 09:00 01/22/24 08:47 Mineral Oil/White Petrolatum Ointment EACH EYE 1 applic Q12HR TANNA Administration Pantoprazole Sodium 40 mg 01/19/24 09:00 01/22/24 08:43 Pantoprazole Sodium Iv 40 Mg Vial IV PUSH 40 mg Q12HR TANNA Administration Sodium Chloride 10 ml 01/17/24 22:00 01/22/24 13:33 Central Line Flush IV PUSH 10 ml Q8HR TANNA Administration Sodium Chloride 20 ml 01/17/24 16:51 Central Line Flush IV PUSH PRN PRN after blood draws Tolnaftate 1 applic 01/20/24 09:00 01/22/24 08:47 Tolnaftate 1% Powder 45 Gm Btl TOPICAL 1 applic Q12HR TANNA Administration Vancomycin HCl 1 each 01/21/24 09:37 Vancomycin For Hemodialysis IVPB PRN PRN Vancomycin Protocol Radiology Results: ITS Impressions Abdomen/Pelvis CT 01/17/24 10:23 IMPRESSION: 1. 11 mm stone at right ureteropelvic junction with mild right hydronephrosis. 2. 1 mm nonobstructing left kidney stone. 3. 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 Ureter Stent X-Ray 01/17/24 15:20 IMPRESSION: 1. Persistent stone at the right ureteropelvic junction with placement of a right internal ureteral stent in expected position. Is unclear the stone has been removed on the final image and would correlate with procedure note for further detail. Renal Ultrasound 01/17/24 19:03 IMPRESSION: 1. 7.2 cm left renal cyst. Otherwise normal kidneys with no hydronephrosis. Chest/Abdomen/Pelvis CT 01/19/24 09:48 IMPRESSION: 1. Patchy airspace opacities in right lung upper lobe, consistent with atelectasis versus pneumonia. 2. Small pleural effusions, right worse than left. 3. Small volume of ascites. 4. 8 mm stone in right renal pelvis with right internal ureteral stent in expected position. 5. 2 mm nonobstructing left kidney stone. Abdomen X-Ray 01/20/24 14:55 IMPRESSION: 1. No dilated loops of bowel to suggest obstruction. Chest X-Ray 01/22/24 08:09 IMPRESSION: 1. Stable airspace opacities in the lower lung zones, consistent with atelectasis versus pneumonia. 2. Stable small left pleural effusion. 3. Cardiomegaly. Labs Labs: Laboratory Tests 01/22/24 05:17 01/22/24 05:17 Calcium 8.7 Phosphorus 2.7 Magnesium 2.0
--- NOTE | 2024-01-22 15:12 | P.PN_ITS ---
Progress Note: A&P Assessment and Plan (1) Septic shock: Code(s): A41.9 - Sepsis, unspecified organism; R65.21 - Severe sepsis with septic shock Status: Acute Assessment and Plan: The patient meets criteria for septic shock with refractory hypotension, acute kidney injury, leukocytosis with bandemia, tachypnea, tachycardia, and fever. Source is urinary tract infection related to obstructing ureteral stone. * Central line inserted 01/17/2024 per anesthesiologist. * Currently on norepinephrine, vasopressin, and phenylephrine. * Maintain SBP > 95 and MAP > 65 for adequate end-organ perfusion. * Add stress dose steroids, hydrocortisone 100 mg q.8 hours. * Continue aztreonam and vancomycin pending blood and urine cultures. (2) Urinary tract infection: Code(s): N39.0 - Urinary tract infection, site not specified Status: Acute Assessment and Plan: UTI secondary to obstructing stones. Urinalysis was positive for 3+ leukocyte esterase, > 100 WBC, and 4+ bacteria. * Receive ciprofloxacin 200 mg in the ED; she has multiple drug allergies. * Changed to aztreonam 1 g q.8 hours and vancomycin pending cultures. (3) Right ureteral stone: Code(s): N20.1 - Calculus of ureter Status: Acute Assessment and Plan: CT scan showed an 11 mm stone at the right ureteropelvic junction with mild right hydronephrosis. * Postoperative day 0 status post cystoscopy with ureteral stent placement. * Needs close follow-up with Dr. Gudino for definitive management pending resolution of infection. (4) Hydronephrosis: Code(s): N13.30 - Unspecified hydronephrosis Status: Acute Assessment and Plan: CT scan showed mild right hydronephrosis secondary to ureteral stone. * Status post cystoscopy and stent placement. (5) Acute kidney injury: Code(s): N17.9 - Acute kidney failure, unspecified Status: Acute Assessment and Plan: Due to a combination of obstructing stone, hypoperfusion from hypotension, and sepsis; she is also on thiazide and loop diuretics as well as NSAIDS. * Rocha catheter has been inserted for strict I/O with minimal output since surgery. * Continue judicious IV fluid rehydration with close monitoring of volume status. * Renally dose all medications and hold nephrotoxic agents. * Renal ultrasound has been ordered for a.m. (6) Acute respiratory failure: Code(s): J96.00 - Acute respiratory failure, unspecified whether with hypoxia or hypercapnia Status: Acute Assessment and Plan: Patient is tachypneic and hypoxic due to acidosis. Chest x-ray is clear. * ABG shows concomitant metabolic and respiratory acidosis. * Patient was started on Vapotherm with some improvement but deteriorated and was subsequently intubated. * Currently on CMV with a tidal volume of 350, rate 24, peep 5. * Sedation with very low-dose fentanyl (patient reports significant nausea and vomiting) and midazolam. (7) Electrolyte abnormality: Code(s): E87.8 - Other disorders of electrolyte and fluid balance, not elsewhere classified Status: Acute Assessment and Plan: Patient has several electrolyte abnormalities including hypocalcemia and hypomagnesemia. * Calcium and magnesium will be replaced and monitored closely. (8) Hypertension: Code(s): I10 - Essential (primary) hypertension Status: Acute Assessment and Plan: She has refractory hypotension is currently on vasopressors as above. * Continue to hold antihypertensives. Plan on 01/16 patient was seen by her urologist for infected stone and had cystoscopy and right ureteral stent placement emergently, and was found to have UTI- pyelonephritis, Patient was started on broad-spectrum antibiotics. patient went to sepsis with hypotension was started on vasopressin, norepinephrine and fluids, patient condition was worsening and patient was intubated. on 01/17 police [employer] prec[employer] spoke with the patient's family and recommended to add another pressor and also discussed the long-term care and family has decided to place the patient DNR. patient clinical symptoms are improving her BP is trending up and currently requiring only one pressure, however her Sr Cr remains elevated suspect ATN 2/2 hypotension, patient have temporary dialysis to improver her kidney function, also there was concern that patient may have injury her intestine, CT scan of abdomen did not show any perforation and seen by general surgeon does not suspect patient has any perforation however there is likelihood of ischemic bowl possibly 2/2 hypoperfusion. we appreciate police captain precinct, will continue to monitor and follow the patient. on 01/[address] Cruz police captain precinct patient right side appears weak and cyanotic patient does not feel any pain, and left chest is cyanotic, the police captain precinct has spoken with an police captain precinct at [facility] patient is accepted waiting for a bed. today patient's and son are present in the room answers their questions. will continue to monitor. appreciate police captain precinct. Subjective Date/time seen: 01/22/24 15:12 Interval history: on 01/16 patient was seen by her urologist for infected stone and had cystoscopy and right ureteral stent placement emergently, and was found to have UTI- pyelonephritis, Patient was started on broad-spectrum antibiotics. patient went to sepsis with hypotension was started on vasopressin, norepinephrine and fluids, patient condition was worsening and patient was intubated. on 01/17 police captain precinct spoke with the patient's family and recommended to add another pressor and also discussed the long-term care and family has decided to place the patient DNR. patient clinical symptoms are improving her BP is trending up and currently requiring only one pressure, however her Sr Cr remains elevated suspect ATN 2/2 hypotension, patient have temporary dialysis to improver her kidney function, also there was concern that patient may have injury her intestine, CT scan of abdomen did not show any perforation and seen by general surgeon does not suspect patient has any perforation however there is likelihood of ischemic bowl possibly 2/2 hypoperfusion. we appreciate police captain precinct, will continue to monitor and follow the patient. on 01/[address] Nancy reynoldsist patient right side appears weak and cyanotic patient does not feel any pain, and left chest is cyanotic, the police captain precinct has spoken with an police captain precinct at [facility] patient is accepted waiting for a bed. today patient's and son are present in the room answers their questions. will continue to monitor. appreciate police captain precinct. Review of Systems Review of Systems: ROS unobtainable: Yes unobtainable due to endotracheal tube Objective Data Vital Signs Vital Signs: Vital Signs - 24 hr 01/21/24 17:16 01/21/24 16:00 01/21/24 16:00 Temperature 38.3 C H Pulse Rate 88 90 90 Respiratory Rate 16 16 Blood Pressure 103/62 Pulse Oximetry 98 98 Oxygen Delivery Mechanical Ventilation Fraction of Inspired Oxygen 40 01/21/24 18:00 01/21/24 18:00 01/21/24 16:00 Temperature 38.3 C H Pulse Rate 88 88 Respiratory Rate 16 16 Blood Pressure 97/59 L Pulse Oximetry 97 Oxygen Delivery Fraction of Inspired Oxygen 40 01/21/24 16:00 01/21/24 16:00 01/21/24 18:00 Temperature Pulse Rate 86 85 Respiratory Rate Blood Pressure Pulse Oximetry 97 Oxygen Delivery Mechanical Ventilation Fraction of Inspired Oxygen 40 01/21/24 16:00 01/21/24 18:00 01/21/24 20:19 Temperature Pulse Rate 90 88 85 Respiratory Rate 16 16 Blood Pressure Pulse Oximetry 98 Oxygen Delivery Mechanical Ventilation Fraction of Inspired Oxygen 40 01/21/24 20:00 01/21/24 20:00 01/21/24 20:00 Temperature Pulse Rate 85 85 Respiratory Rate 20 20 Blood Pressure Pulse Oximetry 98 Oxygen Delivery Mechanical Ventilation Fraction of Inspired Oxygen 35 01/21/24 20:00 01/21/24 22:00 01/21/24 22:00 Temperature Pulse Rate 85 85 85 Respiratory Rate 19 19 Blood Pressure Pulse Oximetry Oxygen Delivery Fraction of Inspired Oxygen 01/21/24 20:00 01/21/24 20:00 01/21/24 22:00 Temperature 38.1 C H Pulse Rate 85 85 Respiratory Rate 20 Blood Pressure 124/75 Pulse Oximetry 98 Oxygen Delivery Fraction of Inspired Oxygen 35 01/21/24 22:00 01/22/24 00:29 01/22/24 00:30 Temperature 38.1 C H Pulse Rate 85 85 86 Respiratory Rate 19 16 16 Blood Pressure 130/59 L Pulse Oximetry 96 Oxygen Delivery Fraction of Inspired Oxygen 01/21/24 23:07 01/22/24 00:00 01/22/24 00:00 Temperature Pulse Rate 85 Respiratory Rate Blood Pressure Pulse Oximetry 97 95 Oxygen Delivery Mechanical Ventilation Mechanical Ventilation Fraction of Inspired Oxygen 35 30 30 01/22/24 00:00 01/22/24 00:00 01/22/24 02:00 Temperature 38.2 C H Pulse Rate 85 85 84 Respiratory Rate 16 Blood Pressure 118/63 Pulse Oximetry 95 Oxygen Delivery Fraction of Inspired Oxygen 01/22/24 02:00 01/22/24 02:15 01/22/24 02:15 Temperature 38.3 C H Pulse Rate 84 84 85 Respiratory Rate 16 16 16 Blood Pressure 111/61 Pulse Oximetry 95 Oxygen Delivery Fraction of Inspired Oxygen 01/22/24 02:05 01/22/24 04:00 01/22/24 04:00 Temperature Pulse Rate 83 86 86 Respiratory Rate 16 16 Blood Pressure Pulse Oximetry 95 Oxygen Delivery Mechanical Ventilation Fraction of Inspired Oxygen 30 01/22/24 05:31 01/22/24 05:05 01/22/24 04:00 Temperature Pulse Rate 87 87 Respiratory Rate 16 Blood Pressure Pulse Oximetry 94 95 Oxygen Delivery Mechanical Ventilation Mechanical Ventilation Fraction of Inspired Oxygen 30 30 01/22/24 04:00 01/22/24 04:00 01/22/24 04:00 Temperature 38.4 C H Pulse Rate 86 86 Respiratory Rate 16 Blood Pressure 116/51 L Pulse Oximetry 95 Oxygen Delivery Fraction of Inspired Oxygen 30 01/22/24 06:00 01/22/24 06:00 01/22/24 06:00 Temperature 38.4 C H Pulse Rate 86 86 86 Respiratory Rate 16 16 Blood Pressure 114/64 Pulse Oximetry 93 Oxygen Delivery Fraction of Inspired Oxygen 01/22/24 06:00 01/22/24 07:51 01/22/24 07:51 Temperature Pulse Rate 86 82 82 Respiratory Rate 16 16 Blood Pressure Pulse Oximetry 93 93 Oxygen Delivery Mechanical Ventilation Mechanical Ventilation Fraction of Inspired Oxygen 30 30 01/22/24 08:00 01/22/24 08:05 01/22/24 08:00 Temperature 38.3 C H Pulse Rate 89 86 86 Respiratory Rate 16 16 16 Blood Pressure 118/59 L Pulse Oximetry 93 Oxygen Delivery Fraction of Inspired Oxygen 01/22/24 08:00 01/22/24 08:00 01/22/24 10:00 Temperature Pulse Rate 86 97 Respiratory Rate Blood Pressure Pulse Oximetry Oxygen Delivery Fraction of Inspired Oxygen 30 01/22/24 10:00 01/22/24 08:00 01/22/24 10:00 Temperature 38.4 C H Pulse Rate 89 86 66 Respiratory Rate 18 16 19 Blood Pressure 130/79 Pulse Oximetry 94 93 Oxygen Delivery Mechanical Ventilation Fraction of Inspired Oxygen 30 01/22/24 10:00 01/22/24 11:12 01/22/24 11:12 Temperature Pulse Rate 64 93 93 Respiratory Rate 18 17 Blood Pressure Pulse Oximetry 94 94 Oxygen Delivery Mechanical Ventilation Fraction of Inspired Oxygen 30 01/22/24 12:00 01/22/24 12:00 01/22/24 12:00 Temperature 38.4 C H Pulse Rate 96 97 Respiratory Rate 16 Blood Pressure 140/72 Pulse Oximetry 93 Oxygen Delivery Fraction of Inspired Oxygen 30 01/22/24 12:00 01/22/24 12:00 01/22/24 12:00 Temperature Pulse Rate 86 73 97 Respiratory Rate 16 23 H 18 Blood Pressure Pulse Oximetry 93 Oxygen Delivery Mechanical Ventilation Fraction of Inspired Oxygen 30 01/22/24 14:00 01/22/24 14:00 01/22/24 14:00 Temperature 38.6 C H Pulse Rate 94 95 96 Respiratory Rate 21 H 19 Blood Pressure 115/61 Pulse Oximetry 93 Oxygen Delivery Fraction of Inspired Oxygen 01/22/24 14:00 01/22/24 14:25 Temperature Pulse Rate 93 93 Respiratory Rate 18 Blood Pressure Pulse Oximetry 93 Oxygen Delivery Mechanical Ventilation Fraction of Inspired Oxygen 30 Intake/Output Intake/Output: Intake & Output 01/19/24 01/20/24 01/21/24 01/22/24 23:59 23:59 23:59 23:59 Intake Total 5378.0 1475.9 935.8 454.6 Output Total 1135 3378 2945 45 Balance 4243.0 -1902.1 -2009.2 409.6 Meds/Results Medications: Active Medications Generic Name Dose Route Start Last Admin Trade Name Freq PRN Reason Stop Dose Admin Dextrose 12.5 gm 01/20/24 08:35 Dextrose 50% 25 Gm/50 Ml Syringe IV PUSH PRN PRN Hypoglycemia Protocol Glucagon 1 mg 01/20/24 08:35 Glucagon For Inj 1 Mg Vial IM PRN PRN Hypoglycemia Protocol Glucose 15 gm 01/20/24 08:35 Glucose Oral Gel 15 Gm Of Glucse In 37.5 Gm Tube PO PRN PRN Hypoglycemia Protocol Fentanyl Citrate 2,500 mcg in 250 mls @ 0 mls/hr 01/17/24 22:35 01/22/24 14:00 Fentanyl 2,500 Mcg/Ns 250 Ml IV CONT 0 mcg/hr .Q0M TANNA 0 mls/hr Titration Protocol Midazolam HCl 100 mg in 100 mls @ 0 mls/hr 01/17/24 22:35 01/22/24 14:00 Versed 100 Mg/Ns 100 Ml IV CONT 0 mg/hr .Q0M TANNA 0 mls/hr Titration Protocol Aztreonam 1 gm/ Sodium 50 mls @ 100 mls/hr 01/19/24 18:00 01/22/24 07:00 Chloride IVPB Infused Q12H TANNA Infusion Albumin Human 50 mls @ 999 mls/hr 01/19/24 12:02 Albutein IVPB 02/18/24 12:01 Q10M PRN HYPOTENSION Dextrose 1,000 mls @ 100 mls/hr 01/20/24 08:35 Dextrose 5% 1,000 Ml IVPB PRN PRN Hypoglycemia Protocol Ciprofloxacin/Dextrose 200 mls @ 200 mls/hr 01/22/24 10:00 01/22/24 11:00 Cipro 400 Mg/D5w 200 Ml IVPB 200 mls/hr Q24H TANNA Administration Insulin Aspart 2 - 5 units 01/20/24 08:35 01/22/24 11:39 Insulin Aspart (*Bkc) 100 Units/Ml SUB-Q Not Given Q4H TANNA Protocol Multi-Ingred Cream/Lotion/Oil/Oint 1 applic 01/18/24 09:00 01/22/24 08:47 Mineral Oil/White Petrolatum Ointment EACH EYE 1 applic Q12HR TANNA Administration Pantoprazole Sodium 40 mg 01/19/24 09:00 01/22/24 08:43 Pantoprazole Sodium Iv 40 Mg Vial IV PUSH 40 mg Q12HR TANNA Administration Sodium Chloride 10 ml 01/17/24 22:00 01/22/24 13:33 Central Line Flush IV PUSH 10 ml Q8HR TANNA Administration Sodium Chloride 20 ml 01/17/24 16:51 Central Line Flush IV PUSH PRN PRN after blood draws Tolnaftate 1 applic 01/20/24 09:00 01/22/24 08:47 Tolnaftate 1% Powder 45 Gm Btl TOPICAL 1 applic Q12HR TANNA Administration Vancomycin HCl 1 each 01/21/24 09:37 Vancomycin For Hemodialysis IVPB PRN PRN Vancomycin Protocol Radiology Results: ITS Impressions Abdomen/Pelvis CT 01/17/24 10:23 IMPRESSION: 1. 11 mm stone at right ureteropelvic junction with mild right hydronephrosis. 2. 1 mm nonobstructing left kidney stone. 3. 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 Ureter Stent X-Ray 01/17/24 15:20 IMPRESSION: 1. Persistent stone at the right ureteropelvic junction with placement of a right internal ureteral stent in expected position. Is unclear the stone has been removed on the final image and would correlate with procedure note for further detail. Renal Ultrasound 01/17/24 19:03 IMPRESSION: 1. 7.2 cm left renal cyst. Otherwise normal kidneys with no hydronephrosis. Chest/Abdomen/Pelvis CT 01/19/24 09:48 IMPRESSION: 1. Patchy airspace opacities in right lung upper lobe, consistent with atelectasis versus pneumonia. 2. Small pleural effusions, right worse than left. 3. Small volume of ascites. 4. 8 mm stone in right renal pelvis with right internal ureteral stent in expected position. 5. 2 mm nonobstructing left kidney stone. Abdomen X-Ray 01/20/24 14:55 IMPRESSION: 1. No dilated loops of bowel to suggest obstruction. Chest X-Ray 01/22/24 08:09 IMPRESSION: 1. Stable airspace opacities in the lower lung zones, consistent with atelectasis versus pneumonia. 2. Stable small left pleural effusion. 3. Cardiomegaly. Labs Labs: Laboratory Results - last 24 hr 01/21/24 01/21/24 01/22/24 16:10 20:57 00:29 WBC RBC Hgb Hct MCV MCH MCHC RDW Plt Count MPV % Immature Plt Fraction PT INR APTT Puncture Site ABG pH ABG pCO2 ABG pO2 ABG PO2/FiO2 Ratio ABG HCO3 ABG O2 Saturation ABG O2 Content ABG Base Excess A-a Gradient Oxyhemoglobin Carboxyhemoglobin Methemoglobin Reduced Hemoglobin Total Hemoglobin O2 Delivery Device O2 Liters/Min Minute Volume Vent Rate Vent Mode FiO2 Tidal Volume PEEP Peak Inspir Pressure Pressure Support Sodium Potassium Chloride Carbon Dioxide Anion Gap BUN Creatinine Estim Creat Clear Calc Estimated GFR Glucose POC Capillary Glucose 221 H 169 H 167 H Calcium Phosphorus Magnesium 01/22/24 01/22/24 01/22/24 05:13 05:17 05:18 WBC 43.8 H RBC 2.92 L Hgb 9.4 L Hct 29.0 L MCV 99.3 MCH 32.2 MCHC 32.4 RDW 14.9 H Plt Count 45 L MPV 13.1 H % Immature Plt Fraction 19.9 H PT 16.5 H INR 1.3 APTT 26.6 Puncture Site Right brachial ABG pH 7.461 H ABG pCO2 36.8 ABG pO2 66.9 L ABG PO2/FiO2 Ratio 2.23 ABG HCO3 25.6 ABG O2 Saturation 94.3 L ABG O2 Content 13.7 L ABG Base Excess 1.9 A-a Gradient 103.8 Oxyhemoglobin 93.6 Carboxyhemoglobin 0.2 Methemoglobin 0.1 Reduced Hemoglobin 6.1 H Total Hemoglobin 10.4 L O2 Delivery Device Ventilator O2 Liters/Min Not Reportable Minute Volume Not Reportable Vent Rate 16 Vent Mode Cmv FiO2 30 Tidal Volume 400 PEEP 8 Peak Inspir Pressure Not Reportable Pressure Support Not Reportable Sodium 137 Potassium 3.4 Chloride 101 Carbon Dioxide 30 Anion Gap 6 BUN 37 H Creatinine 2.30 H Estim Creat Clear Calc 22 Estimated GFR 20 L Glucose 167 H POC Capillary Glucose Calcium 8.7 Phosphorus 2.7 Magnesium 2.0 01/22/24 01/22/24 08:00 11:32 WBC RBC Hgb Hct MCV MCH MCHC RDW Plt Count MPV % Immature Plt Fraction PT INR APTT Puncture Site ABG pH ABG pCO2 ABG pO2 ABG PO2/FiO2 Ratio ABG HCO3 ABG O2 Saturation ABG O2 Content ABG Base Excess A-a Gradient Oxyhemoglobin Carboxyhemoglobin Methemoglobin Reduced Hemoglobin Total Hemoglobin O2 Delivery Device O2 Liters/Min Minute Volume Vent Rate Vent Mode FiO2 Tidal Volume PEEP Peak Inspir Pressure Pressure Support Sodium Potassium Chloride Carbon Dioxide Anion Gap BUN Creatinine Estim Creat Clear Calc Estimated GFR Glucose POC Capillary Glucose 143 H 179 H Calcium Phosphorus Magnesium Quality VTE Prophylaxis VTE prophylaxis: pharmacologic ordered
[2024-01-22 16:46] LABS: Glucose Point of Care 189 mg/dl (65-105)
[2024-01-22 20:40] LABS: Glucose Point of Care < 20 mg/dl (65-105)
[2024-01-22 20:40] LABS: Glucose Point of Care 72 mg/dl (65-105)
[2024-01-23] VITALS (39 sets, daily range): BP systolic 95–183; BP diastolic 55–91; PULSE 91–117; RESP 17–25; TEMP 37–38.8; O2SAT 88–98
[2024-01-23 00:43] LABS: Glucose Point of Care 233 mg/dl (65-105)
[2024-01-23 00:43] LABS: Glucose Point of Care 245 mg/dl (65-105)
[2024-01-23] MEDS: INSULIN ASPART (*BKC) 100 UNITS/ML SUB-Q ×4 (00:45→18:35)
[2024-01-23 05:27] LABS: Hematocrit 27.8 % (37.0-47.0); Hemoglobin 9.1 g/dL (12.0-15.0); Immature Platelet Fraction Pct 16.6 % (0.9-11.2); Mean Corpuscular HGB Conc 32.7 g/dl (32-36); Mean Corpuscular Hemoglobin 32.5 pg (26-34); Mean Corpuscular Volume 99.3 fl (80-100); Mean Platelet Volume 12.4 fl (7.4-10.4); Platelet Count Result 49 k/mm3 (150-375); Red Cell Distribution Width 14.9 % (11.5-14.5)
[2024-01-23 05:27] LABS: Glucose Point of Care 214 mg/dl (65-105)
[2024-01-23 05:42] LABS: Alanine Aminotransferase 152 U/L (6-35); Albumin Level 2.6 g/dL (3.5-5.1); Alkaline Phosphatase 216 U/L (38-126); Anion Gap 7 mmol/L (4-12); Aspartate Amino Transferase 88 U/L (14-36); Bilirubin,Total 0.8 mg/dL (0.2-1.3); Blood Urea Nitrogen 59 mg/dL (7-17); Calcium 8.4 mg/dL (8.4-10.2); Carbon Dioxide 28 mmol/L (22-30); Chloride 102 mmol/L (98-107); Estimated CRCL calculation 18 ml/min; Estimated Glomerular Filt Rate 16; Glucose 259 mg/dL (65-110); Magnesium 1.9 mg/dL (1.6-2.3); Phosphorus 2.6 mg/dL (2.5-4.5); Potassium 4.1 mmol/L (3.4-5.0); Sodium 137 mmol/L (137-145)
[2024-01-23 05:46] LABS: White Blood Count 58.3 K/mm3 (4.5-10.0)
[2024-01-23 05:54] LABS: Alveolar/Arterial O2 Gradient 96.2 mmHg; Base Excess ABG 1.8 mEq/l (+/-2.0); Carboxyhemoglobin 0.2 % THb (0-2.0); HCO3 ABG 25.6 mEq/l (22.0-26.0); Methemoglobin ABG 0.2 %THb (0-1.5); Oxygen Content ABG 13.7 %vol (16.0-22.0); Oxygen Saturation ABG 95.7 % (95.0-100.0); PCO2 ABG 36.9 mmHg (35.0-45.0); PO2 ABG 74.3 mmHg (80.0-100.0); Reduced Hemoglobin 4.6 %THb (0-5.0); Total Hemoglobin 10.2 g/dL (12.0-18.0); pH ABG 7.459 (7.350-7.450)
[2024-01-23 05:55] LABS: Arterial Blood Gas PEEP 8 cmH2O; Arterial Blood Gas Tidal Volume 360 ml; Arterial Blood Gas Vent Mode CMV; Arterial Blood Gas Ventilator rate 16 /MIN; Device VENTILATOR; Fractional Inspired Oxygen 30 %; PO2 FiO2 Ratio Arterial Blood 2.48 %; Site Drawn RIGHT BRACHIAL
[2024-01-23] MEDS: CENTRAL LINE FLUSH 10 ML IV PUSH ×2 (05:55→13:03)
[2024-01-23] MEDS: AZTREONAM 1 GM in SODIUM CHLORIDE 0.9% IV 50 ML 100 ML IVPB ×2 (06:49→18:24)
[2024-01-23 07:46] LABS: Glucose Point of Care 282 mg/dl (65-105)
[2024-01-23] MEDS: MINERAL OIL/WHITE PETROLATUM OINTMENT 1 APPLIC EACH EYE (08:02)
[2024-01-23] MEDS: TOLNAFTATE 1% POWDER 45 GM BTL 1 APPLIC TOPICAL (08:02)
[2024-01-23] MEDS: PANTOPRAZOLE SODIUM IV 40 MG VIAL IV PUSH (08:02)
[2024-01-23] MEDS: INSULIN GLARGINE (*BKC) 100 UNITS/ML 15 UNITS SUB-Q (09:20)
--- NOTE | 2024-01-23 09:33 | P.PNINT_ITS ---
Progress Note: A&P Assessment and Plan (1) Septic shock: Code(s): A41.9 - Sepsis, unspecified organism; R65.21 - Severe sepsis with septic shock Status: Acute Assessment and Plan: Septic shock likely related to pyelonephritis -right UPJ stone with hydronephrosis status post stent placement, also has evidence of pneumonia on the CT scan -01/16: Status post cystoscopy, right retrograde pyelogram, right ureteral stent placement 6 Ukrainian contour Patient has received significant IV fluids and now currently off -vasopressors have been weaned off -discontinue hydrocortisone -patient has multiple allergies and was started on aztreonam and vancomycin (01/16) patient did get 1 dose of ciprofloxacin in the ER -01/16: Urine cultures growing Klebsiella which is not pansensitive. I di scussed with Infectious Disease pharmacist. Due to patient's multiple antibiotic allergies and the fact the patient is clinically improving we have decided to continue with aztreonam at this time 01/16: Blood cultures negative till now Continue vancomycin to cover for skin, pneumonia, 01/21 continues to have fever. WBC further increased. Will add ciprofloxacin since patient tolerated Cipro dose in the ER. 01/22 continues to have fever with worsening of white count will repeat CT scan of chest abdomen pelvis to rule out any abscess or bowel necrosis. Unfortunately patient is allergic to contrast and iodine. (2) Acute respiratory failure: Code(s): J96.00 - Acute respiratory failure, unspecified whether with hypoxia or hypercapnia Status: Acute Assessment and Plan: Acute respiratory failure likely related to metabolic acidosis, severe septic shock, pneumonia -01/17/2024: Patient was intubated -chest x-ray reviewed shows pneumonia and ET tube in acceptable position -ABG reviewed. Continue CMV mode of ventilation, peep of 5, 40% FiO2. Decrease rate to 16 decrease tidal volume to 360 -sedated with fentanyl and Versed infusion. Daily sedation holiday (3) Pyelonephritis: Code(s): N12 - Tubulo-interstitial nephritis, not specified as acute or chronic Status: Acute Assessment and Plan: Patient presented with generalized weakness and diffuse abdominal pain, CT scan of the abdomen and pelvis showed right UPJ stone with hydronephrosis and possible pyelonephritis since UA revealed UTI -continue antibiotics as above -01/16: Status post cystoscopy, right retrograde pyelogram, right ureteral stent placement 6 Ukrainian contour (4) Acute kidney injury: Code(s): N17.9 - Acute kidney failure, unspecified Status: Acute Assessment and Plan: Patient with acute kidney injury likely related to septic shock, ATN, hypotension, pyelonephritis. Patient on furosemide, spironolactone and atenolol at home. 01/18 dialysis initiated 01/19 patient was dialyzed on 3 L fluid was removed 01/20 dialyzed again in 2800 mL fluid was removed 01/22 patient is being dialyzed again today Continue dialysis as per Nephrology Off bicarb fluids now Monitor urine output electrolytes and creatinine (5) Right ureteral stone: Code(s): N20.1 - Calculus of ureter Status: Acute Assessment and Plan: 01/16: Status post cystoscopy, right retrograde pyelogram, right ureteral stent placement 6 Ukrainian contour -urology following (6) Metabolic acidosis: Code(s): E87.20 - Acidosis, unspecified Status: Acute Assessment and Plan: Resolved with with bicarb and dialysis (7) Shock liver: Code(s): K72.00 - Acute and subacute hepatic failure without coma Status: Acute Assessment and Plan: Shock liver likely related to severe septic shock, hypotension, along with coagulopathy. LFTs are improving. Monitor (8) Thrombocytopenia: Code(s): D69.6 - Thrombocytopenia, unspecified Status: Acute Assessment and Plan: Thrombocytopenia likely related to septic shock 01/18 Patient was transfused 2 units of platelets since after place a dialysis catheter Monitor (9) Ischemic bowel disease: Code(s): K55.9 - Vascular disorder of intestine, unspecified Status: Acute Assessment and Plan: Patient had persistently high lactic acid level secondary to septic shock and there was concern for ischemic bowel although no obvious necrosis was seen on the CT scan. Patient now clinically improved although lactic acid has not normalized yet. On exam patient did not any bowel sounds and does suggest ileus KUB was done and was unremarkable. Patient did have a bowel movement Continue tube feed and monitor closely. General surgery is following Repeat CT scan ordered in light of persistently elevated WBC and fevers (10) Ileus: Code(s): K56.7 - Ileus, unspecified Status: Acute Assessment and Plan: See above (11) Electrolyte abnormality: Code(s): E87.8 - Other disorders of electrolyte and fluid balance, not elsewhere classified Status: Acute Assessment and Plan: Potassium level improved after replacement (12) Coagulopathy: Code(s): D68.9 - Coagulation defect, unspecified Status: Acute Assessment and Plan: 01/18 INR 2.6. patient was transfused FFP for invasive procedures INR now improved and stable Monitor INR. Hold anticoagulation at this time (13) Limb ischemia: Code(s): I99.8 - Other disorder of circulatory system Status: Acute Assessment and Plan: Both feet are cold and mottled, unable to Doppler or palpate bilateral dorsalis pedis or posterior tibial pulses, both hands are mottled with mottling of fingers both hands This is likely secondary to septic shock requiring multiple vasopressors. Unfortunately there is no solution to this and will continue monitor and hold perfusion improved. Will hold on any imaging with contrast at this time due to renal failure (14) Skin abnormalities: Code(s): L98.9 - Disorder of the skin and subcutaneous tissue, unspecified Status: Acute Assessment and Plan: Patient has a large bruise on the lateral side of her right thigh with a large fluid blister, she has a bruise on right side of her abdominal wall. This could be bruising secondary to coagulopathy and thrombocytopenia The more concerning lesion is the large area of bruising on right breast with central area of bright redness around the nipple with superficial skin breakdown. There is also black area of necrosis. Concern for ischemic necrosis secondary to severe shock the patient was in Consult wound care Continue vancomycin Patient has been accepted at [facility] and is waiting bed assignment for transfer where vascular and Plastic surgery is available available. (15) Hyperglycemia: Code(s): R73.9 - Hyperglycemia, unspecified Status: Acute Plan DVT prophylaxis: Lovenox on hold, SCDs Stress ulcer prophylaxis: Protonix IV q.12 hours Nutrition: Advance tube feeds to 40 mL/hour Code Status: DNR Patient has been accepted at [facility] and is waiting bed assignment for transfer Critical Care Time Spent: 32 minutes Discussed with patient's , son and niece updated them with patient's condition and plan of care. I answered all questions Due to a high probability of clinically significant, life threatening deterioration, the patient required my highest level of preparedness to intervene emergently and I personally spent this critical care time directly and personally managing the patient. This critical care time included obtaining a history; examining the patient; pulse oximetry; ordering and review of studies; arranging urgent treatment with development of a management plan; evaluation of patient's response to treatment; frequent reassessment; and discussions with other providers. It was exclusive of separately billable procedures and treating other patients and teaching time. Please see Assessment and Plan section and the rest of the note for further information on patient assessment and treatment This dictation may have been done utilizing a voice recognition system. Attempts have been made to correct errors. However, there may be uncorrected grammatical, spelling, and recognitions errors present. Subjective Date/time seen: 01/23/24 Overnight events reviewed. febrile Continues to be on mechanical ventilation 30% FiO2 Off sedation since yesterday morning Sinus rhythm on the monitor Tolerating tube feeds Low urine output Interval history: Reason for consult: Septic shock, pyelonephritis, kidney stones, hydronephrosis , shock liver, acute respiratory failure, thrombocytopenia Review of Systems Review of Systems: ROS unobtainable: Yes unobtainable due to endotracheal tube, unobtainable due to medical condition and unobtainable due to mental status Exam Narrative: General: Intubated and sedated HEENT:? Pupils are equal and reactive, sclera is clear. ETT in place Neck:? Supple Respiratory:? Coarse breath with crackles bilaterally, and wheezing, adequate air entry Cardiac:? S1-S2 is normal, tachycardia Abdomen:? Soft, nontender, nondistended, protuberant, absent bowel sounds Extremities:? Bilateral lower extremity edema, both feet are cold and mottled, unable to Doppler or palpate bilateral dorsalis pedis or posterior tibial pulses, both hands are cyanotic with cyanosis of fingers both hands Neuro:? Patient intubated, sedated, does not open her eyes or follow simple commands Skin:? Patient has a large bruise on the lateral side of her right thigh with fluid blister, has a bruise on right side of her abdominal wall, she has a large area of redness on her right breast with superficial skin breakdown which is worse. There is also area of necrosis. Psych:? Unable to assess Objective Data Vital Signs Vital Signs: Vital Signs - 24 hr 01/22/24 10:00 01/22/24 10:00 01/22/24 10:00 Temperature 38.4 C H Pulse Rate 97 89 66 Respiratory Rate 18 19 Blood Pressure 130/79 Pulse Oximetry 94 Oxygen Delivery Fraction of Inspired Oxygen 01/22/24 10:00 01/22/24 11:12 01/22/24 11:12 Temperature Pulse Rate 64 93 93 Respiratory Rate 18 17 Blood Pressure Pulse Oximetry 94 94 Oxygen Delivery Mechanical Ventilation Fraction of Inspired Oxygen 30 01/22/24 12:00 01/22/24 12:00 01/22/24 12:00 Temperature 38.4 C H Pulse Rate 96 97 Respiratory Rate 16 Blood Pressure 140/72 Pulse Oximetry 93 Oxygen Delivery Fraction of Inspired Oxygen 30 01/22/24 12:00 01/22/24 12:00 01/22/24 12:00 Temperature Pulse Rate 95 73 97 Respiratory Rate 16 23 H 18 Blood Pressure Pulse Oximetry 93 Oxygen Delivery Mechanical Ventilation Fraction of Inspired Oxygen 30 01/22/24 14:00 01/22/24 14:00 01/22/24 14:00 Temperature 38.6 C H Pulse Rate 94 95 96 Respiratory Rate 21 H 19 Blood Pressure 115/61 Pulse Oximetry 93 Oxygen Delivery Fraction of Inspired Oxygen 01/22/24 14:00 01/22/24 14:25 01/22/24 16:00 Temperature Pulse Rate 93 93 95 Respiratory Rate 18 18 Blood Pressure Pulse Oximetry 93 Oxygen Delivery Mechanical Ventilation Fraction of Inspired Oxygen 30 01/22/24 16:00 01/22/24 16:00 01/22/24 16:00 Temperature Pulse Rate 92 74 Respiratory Rate 18 Blood Pressure Pulse Oximetry Oxygen Delivery Fraction of Inspired Oxygen 30 01/22/24 16:00 01/22/24 16:00 01/22/24 16:00 Temperature 38.7 C H 38.7 C H Pulse Rate 95 95 98 Respiratory Rate 17 19 18 Blood Pressure 116/66 116/66 Pulse Oximetry 94 93 94 Oxygen Delivery Mechanical Ventilation Fraction of Inspired Oxygen 30 01/22/24 18:00 01/22/24 18:00 01/22/24 18:00 Temperature 38.7 C H Pulse Rate 97 72 86 Respiratory Rate 19 18 Blood Pressure 122/72 Pulse Oximetry 93 Oxygen Delivery Fraction of Inspired Oxygen 01/22/24 18:00 01/22/24 18:00 01/22/24 17:40 Temperature 38.7 C H Pulse Rate 95 98 97 Respiratory Rate 18 19 Blood Pressure 122/72 Pulse Oximetry 93 93 Oxygen Delivery Mechanical Ventilation Fraction of Inspired Oxygen 30 01/22/24 20:00 01/22/24 20:00 01/22/24 20:00 Temperature 38.8 C H Pulse Rate 98 98 98 Respiratory Rate 20 20 20 Blood Pressure 125/67 Pulse Oximetry 94 Oxygen Delivery Fraction of Inspired Oxygen 01/22/24 20:28 01/22/24 22:00 01/22/24 20:00 Temperature 38.8 C H Pulse Rate 98 98 Respiratory Rate 21 H Blood Pressure 143/61 H Pulse Oximetry 95 94 Oxygen Delivery Mechanical Ventilation Fraction of Inspired Oxygen 30 30 01/22/24 20:00 01/22/24 22:00 01/22/24 22:00 Temperature Pulse Rate 99 98 98 Respiratory Rate 21 H Blood Pressure Pulse Oximetry Oxygen Delivery Fraction of Inspired Oxygen 01/22/24 22:00 01/22/24 23:11 01/23/24 00:00 Temperature Pulse Rate 98 93 Respiratory Rate 21 H Blood Pressure Pulse Oximetry 95 Oxygen Delivery Mechanical Ventilation Fraction of Inspired Oxygen 30 30 01/23/24 00:00 01/23/24 00:00 01/23/24 00:00 Temperature 38.8 C H Pulse Rate 95 95 95 Respiratory Rate 18 18 18 Blood Pressure 154/65 H Pulse Oximetry 92 Oxygen Delivery Fraction of Inspired Oxygen 01/23/24 00:00 01/23/24 02:00 01/23/24 02:00 Temperature 38.7 C H Pulse Rate 95 97 95 Respiratory Rate 18 Blood Pressure 154/91 H Pulse Oximetry 94 Oxygen Delivery Fraction of Inspired Oxygen 01/23/24 02:00 01/23/24 02:00 01/23/24 02:48 Temperature Pulse Rate 95 95 92 Respiratory Rate 18 18 Blood Pressure Pulse Oximetry 92 Oxygen Delivery Mechanical Ventilation Fraction of Inspired Oxygen 30 01/23/24 04:00 01/23/24 06:00 01/23/24 04:00 Temperature Pulse Rate 94 95 94 Respiratory Rate 21 H 22 H 21 H Blood Pressure Pulse Oximetry Oxygen Delivery Fraction of Inspired Oxygen 01/23/24 06:00 01/23/24 05:06 01/23/24 04:00 Temperature Pulse Rate 95 92 95 Respiratory Rate 22 H Blood Pressure Pulse Oximetry 95 Oxygen Delivery Mechanical Ventilation Fraction of Inspired Oxygen 30 01/23/24 06:00 01/23/24 04:00 01/23/24 02:04 Temperature 38.7 C H Pulse Rate 94 96 Respiratory Rate 17 Blood Pressure Pulse Oximetry 93 Oxygen Delivery Fraction of Inspired Oxygen 30 01/23/24 02:31 01/23/24 04:03 01/23/24 06:01 Temperature 38.7 C H 38.6 C H 38.4 C H Pulse Rate 94 94 95 Respiratory Rate 17 21 H 23 H Blood Pressure 120/62 183/86 H Pulse Oximetry 94 93 94 Oxygen Delivery Fraction of Inspired Oxygen 01/23/24 06:06 01/23/24 08:14 Temperature 38.4 C H Pulse Rate 94 91 Respiratory Rate 22 H Blood Pressure Pulse Oximetry 95 Oxygen Delivery Mechanical Ventilation Fraction of Inspired Oxygen 30 Intake/Output Intake/Output: Intake & Output 01/20/24 01/21/24 01/22/24 01/23/24 23:59 23:59 23:59 23:59 Intake Total 1475.9 935.8 1185.6 588 Output Total [address] [facility] -1902.1 -2008.2 1040.6 338 Meds/Results Medications: Active Medications Generic Name Dose Route Start Last Admin Trade Name Freq PRN Reason Stop Dose Admin Dextrose 12.5 gm 01/20/24 08:35 Dextrose 50% 25 Gm/50 Ml Syringe IV PUSH PRN PRN Hypoglycemia Protocol Epoetin Brent-epbx 10,000 units 01/23/24 20:00 Epoetin Brent-Epbx 10,000 Units/Ml Vial IV PUSH 01/23/24 20:01 ONCE ONE Glucagon 1 mg 01/20/24 08:35 Glucagon For Inj 1 Mg Vial IM PRN PRN Hypoglycemia Protocol Glucose 15 gm 01/20/24 08:35 Glucose Oral Gel 15 Gm Of Glucse In 37.5 Gm Tube PO PRN PRN Hypoglycemia Protocol Fentanyl Citrate 2,500 mcg in 250 mls @ 0 mls/hr 01/17/24 22:35 01/23/24 06:00 Fentanyl 2,500 Mcg/Ns 250 Ml IV CONT 0 mcg/hr .Q0M TANNA 0 mls/hr Titration Protocol Midazolam HCl 100 mg in 100 mls @ 0 mls/hr 01/17/24 22:35 01/23/24 06:00 Versed 100 Mg/Ns 100 Ml IV CONT 0 mg/hr .Q0M TANNA 0 mls/hr Titration Protocol Aztreonam 1 gm/ Sodium 50 mls @ 100 mls/hr 01/19/24 18:00 01/23/24 06:49 Chloride IVPB 100 mls/hr Q12H TANNA Administration Albumin Human 50 mls @ 999 mls/hr 01/19/24 12:02 Albutein IVPB 02/18/24 12:01 Q10M PRN HYPOTENSION Dextrose 1,000 mls @ 100 mls/hr 01/20/24 08:35 Dextrose 5% 1,000 Ml IVPB PRN PRN Hypoglycemia Protocol Ciprofloxacin/Dextrose 200 mls @ 200 mls/hr 01/22/24 10:00 01/22/24 12:00 Cipro 400 Mg/D5w 200 Ml IVPB Infused Q24H TANNA Infusion Vancomycin HCl 1,000 mg in 250 mls @ 250 mls/hr 01/23/24 18:00 Vancomycin 1,000 Mg/Ns 250 Ml IVPB 01/23/24 18:59 ONCE ONE Insulin Aspart 3 - 6 units 01/23/24 08:15 01/23/24 08:32 Insulin Aspart (*Bkc) 100 Units/Ml SUB-Q Not Given Q4H [facility] Protocol Insulin Glargine 15 units 01/23/24 09:00 01/23/24 09:20 Insulin Glargine (*Bkc) 100 Units/Ml SUB-Q 15 units QAM TANNA Administration Multi-Ingred Cream/Lotion/Oil/Oint 1 applic 01/18/24 09:00 01/23/24 08:02 Mineral Oil/White Petrolatum Ointment EACH EYE 1 applic Q12HR TANNA Administration Pantoprazole Sodium 40 mg 01/19/24 09:00 01/23/24 08:02 Pantoprazole Sodium Iv 40 Mg Vial IV PUSH 40 mg Q12HR TANNA Administration Sodium Chloride 10 ml 01/17/24 22:00 01/23/24 05:55 Central Line Flush IV PUSH 10 ml Q8HR TANNA Administration Sodium Chloride 20 ml 01/17/24 16:51 Central Line Flush IV PUSH PRN PRN after blood draws Tolnaftate 1 applic 01/20/24 09:00 01/23/24 08:02 Tolnaftate 1% Powder 45 Gm Btl TOPICAL 1 applic Q12HR TANNA Administration Vancomycin HCl 1 each 01/21/24 09:37 Vancomycin For Hemodialysis IVPB PRN PRN Vancomycin Protocol Radiology Results: ITS Impressions Abdomen/Pelvis CT 01/17/24 10:23 IMPRESSION: 1. 11 mm stone at right ureteropelvic junction with mild right hydronephrosis. 2. 1 mm nonobstructing left kidney stone. 3. 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 Ureter Stent X-Ray 01/17/24 15:20 IMPRESSION: 1. Persistent stone at the right ureteropelvic junction with placement of a right internal ureteral stent in expected position. Is unclear the stone has been removed on the final image and would correlate with procedure note for further detail. Renal Ultrasound 01/17/24 19:03 IMPRESSION: 1. 7.2 cm left renal cyst. Otherwise normal kidneys with no hydronephrosis. Chest/Abdomen/Pelvis CT 01/19/24 09:48 IMPRESSION: 1. Patchy airspace opacities in right lung upper lobe, consistent with atelecta sis versus pneumonia. 2. Small pleural effusions, right worse than left. 3. Small volume of ascites. 4. 8 mm stone in right renal pelvis with right internal ureteral stent in expected position. 5. 2 mm nonobstructing left kidney stone. Abdomen X-Ray 01/20/24 14:55 IMPRESSION: 1. No dilated loops of bowel to suggest obstruction. Chest X-Ray 01/23/24 06:01 Impression: Minimal central congestive changes with left basilar atelectasis versus pneumonia. Correlate clinically. Support tubes, as above. Labs Labs: Laboratory Results - last 24 hr 01/22/24 01/22/24 01/22/24 11:32 16:31 20:33 WBC RBC Hgb Hct MCV MCH MCHC RDW Plt Count MPV % Immature Plt Fraction Puncture Site ABG pH ABG pCO2 ABG pO2 ABG PO2/FiO2 Ratio ABG HCO3 ABG O2 Saturation ABG O2 Content ABG Base Excess A-a Gradient Oxyhemoglobin Carboxyhemoglobin Methemoglobin Reduced Hemoglobin Total Hemoglobin O2 Delivery Device O2 Liters/Min Minute Volume Vent Rate Vent Mode FiO2 Tidal Volume PEEP Peak Inspir Pressure Pressure Support Sodium Potassium Chloride Carbon Dioxide Anion Gap BUN Creatinine Estim Creat Clear Calc Estimated GFR Glucose POC Capillary Glucose 179 H 189 H < 20 L* Calcium Phosphorus Magnesium Total Bilirubin AST ALT Alkaline Phosphatase Total Protein Albumin Random Vancomycin 01/22/24 01/23/24 01/23/24 20:35 00:28 00:30 WBC RBC Hgb Hct MCV MCH MCHC RDW Plt Count MPV % Immature Plt Fraction Puncture Site ABG pH ABG pCO2 ABG pO2 ABG PO2/FiO2 Ratio ABG HCO3 ABG O2 Saturation ABG O2 Content ABG Base Excess A-a Gradient Oxyhemoglobin Carboxyhemoglobin Methemoglobin Reduced Hemoglobin Total Hemoglobin O2 Delivery Device O2 Liters/Min Minute Volume Vent Rate Vent Mode FiO2 Tidal Volume PEEP Peak Inspir Pressure Pressure Support Sodium Potassium Chloride Carbon Dioxide Anion Gap BUN Creatinine Estim Creat Clear Calc Estimated GFR Glucose POC Capillary Glucose 72 245 H 233 H Calcium Phosphorus Magnesium Total Bilirubin AST ALT Alkaline Phosphatase Total Protein Albumin Random Vancomycin 01/23/24 01/23/24 01/23/24 05:16 05:23 05:45 WBC 58.3 H* RBC 2.80 L Hgb 9.1 L Hct 27.8 L MCV 99.3 MCH 32.5 MCHC 32.7 RDW 14.9 H Plt Count 49 L MPV 12.4 H % Immature Plt Fraction 16.6 H Puncture Site Right brachial ABG pH 7.459 H ABG pCO2 36.9 ABG pO2 74.3 L ABG PO2/FiO2 Ratio 2.48 ABG HCO3 25.6 ABG O2 Saturation 95.7 ABG O2 Content 13.7 L ABG Base Excess 1.8 A-a Gradient 96.2 Oxyhemoglobin 95.0 Carboxyhemoglobin 0.2 Methemoglobin 0.2 Reduced Hemoglobin 4.6 Total Hemoglobin 10.2 L O2 Delivery Device Ventilator O2 Liters/Min Not Reportable Minute Volume Not Reportable Vent Rate 16 Vent Mode Cmv FiO2 30 Tidal Volume 360 PEEP 8 Peak Inspir Pressure Not Reportable Pressure Support Not Reportable Sodium 137 Potassium 4.1 Chloride 102 Carbon Dioxide 28 Anion Gap 7 BUN 59 H D Creatinine 2.90 H Estim Creat Clear Calc 18 Estimated GFR 16 L Glucose 259 H POC Capillary Glucose 214 H Calcium 8.4 Phosphorus 2.6 Magnesium 1.9 Total Bilirubin 0.8 AST 88 H ALT 152 H Alkaline Phosphatase 216 H Total Protein 5.0 L Albumin 2.6 L Random Vancomycin 16.0 01/23/24 07:43 WBC RBC Hgb Hct MCV MCH MCHC RDW Plt Count MPV % Immature Plt Fraction Puncture Site ABG pH ABG pCO2 ABG pO2 ABG PO2/FiO2 Ratio ABG HCO3 ABG O2 Saturation ABG O2 Content ABG Base Excess A-a Gradient Oxyhemoglobin Carboxyhemoglobin Methemoglobin Reduced Hemoglobin Total Hemoglobin O2 Delivery Device O2 Liters/Min Minute Volume Vent Rate Vent Mode FiO2 Tidal Volume PEEP Peak Inspir Pressure Pressure Support Sodium Potassium Chloride Carbon Dioxide Anion Gap BUN Creatinine Estim Creat Clear Calc Estimated GFR Glucose POC Capillary Glucose 282 H Calcium Phosphorus Magnesium Total Bilirubin AST ALT Alkaline Phosphatase Total Protein Albumin Random Vancomycin Quality VTE Prophylaxis VTE prophylaxis: pharmacologic ordered
--- NOTE | 2024-01-23 09:36 | P.PNNP_ITS ---
Progress Note: A&P Assessment and Plan (1) Acute kidney injury: Code(s): N17.9 - Acute kidney failure, unspecified Status: Acute Assessment and Plan: * due to ATN with multifactorial etiology: * hemodynamic instability/shock * infection/sepsis * BP medications prior to admission * diuretics prior to admission * obstructive uropathy * nephrolithiasis * s/p adequate fluid resuscitation * off vasopressor support (levophed) * given worsening creatinine, metabolic acidosis, and anuria -- initiated on [employer]/hemodialysis * HD today * continue M/W/F schedule for now * follow repeat labs and UOP for potential renal recovery (2) Septic shock: Code(s): A41.9 - Sepsis, unspecified organism; R65.21 - Severe sepsis with septic shock Status: Acute Assessment and Plan: * due to pyelonephritis in association with obstructing right UPJ stone * s/p IVF resuscitation and was requiring significant vasopressor support * weaned of levophed, vasopressin, juanis-synephrine and epinephrine * s/p cystoscopy, right retrograde pyelogram, right ureteral stent placement on 12/29 * follow culture data - results noted * on IV antibiotics (3) Acute respiratory failure: Code(s): J96.00 - Acute respiratory failure, unspecified whether with hypoxia or hypercapnia Status: Acute Assessment and Plan: * secondary to metabolic acidosis and severe septic shock * continue ventilator support * wean when more stable (4) Metabolic acidosis: Code(s): E87.20 - Acidosis, unspecified Status: Acute Assessment and Plan: * improving/resolved * due to AMARIS/ARF and severe lactic acidosis * repeat CT scan without evidence of bowel ischemia * s/p multiple doses of sodium bicarb IV pushes * off bicarb infusion (5) Pyelonephritis: Code(s): N12 - Tubulo-interstitial nephritis, not specified as acute or chronic Status: Acute Assessment and Plan: * as evidence by symptoms and imaging findings CT scan of the abdomen and pelvis with right UPJ stone with hydronephrosis and possible pyelonephritis given UA findings * on antibiotic therapy * s/p cystoscopy, right retrograde pyelogram, right ureteral stent placement on 01/16 (6) Right ureteral stone: Code(s): N20.1 - Calculus of ureter Status: Acute Assessment and Plan: * Urology following * see #4 (7) Shock liver: Code(s): K72.00 - Acute and subacute hepatic failure without coma Status: Acute Assessment and Plan: * due to severe sepsis and shock * follow trend of LFTs and INR (8) Thrombocytopenia: Code(s): D69.6 - Thrombocytopenia, unspecified Status: Acute Assessment and Plan: * likely related to septic shock * follow trend of platelets Will continue to follow. Subjective Date/time seen: 01/23/24 9:36 Interval history: Follow-up for acute kidney injury/acute renal failure. Tolerating dialysis treatment at the time of my visit (seen on HD at 9:25AM); remains intubated and on mechanical ventilation; stable hemodynamics noted but continues to have poor urine output; recurrent fevers present in the last 24 ho urs in association with significant leukocytosis. Exam Narrative: General: elderly female intubated and on mechanical ventilation Heart: normal S1 and S2; no rub Lungs: coarse breath sounds but decreased at bases Abdomen: soft, nontender, nondistended, positive bowel sounds Extremities: 1+ edema noted bilaterally Skin: purple discoloration in feet/toes/finger tips noted Objective Data Vital Signs Vital Signs: Vital Signs Temp Pulse Resp BP Pulse Ox O2 Del Method FiO2 01/23/24 09:30 101 H 117/76 01/23/24 09:15 102 H 110/61 01/23/24 09:00 93 134/75 01/23/24 08:48 91 170/76 H 01/23/24 08:36 100.5 F H 94 22 H 177/83 H 98 01/23/24 08:36 30 01/23/24 08:14 91 95 Mechanical Ventilation 01/23/24 06:06 101.1 F H 94 22 H 01/23/24 06:01 101.1 F H 95 23 H 183/86 H 94 01/23/24 04:03 101.4 F H 94 21 H 93 01/23/24 02:31 101.7 F H 94 17 120/62 94 01/23/24 02:04 101.6 F H 96 17 93 01/23/24 04:00 30 01/23/24 06:00 94 01/23/24 04:00 95 01/23/24 05:06 92 95 Mechanical Ventilation 01/23/24 06:00 95 22 H 01/23/24 04:00 94 21 H 01/23/24 06:00 95 22 H 01/23/24 04:00 94 21 H 01/23/24 02:48 92 92 Mechanical Ventilation 30 01/23/24 02:00 95 18 01/23/24 02:00 95 18 01/23/24 02:00 101.6 F H 95 18 154/91 H 94 01/23/24 02:00 97 01/23/24 00:00 95 01/23/24 00:00 95 18 01/23/24 00:00 95 18 01/23/24 00:00 101.9 F H 95 18 154/65 H 92 01/23/24 00:00 30 01/22/24 23:11 93 95 Mechanical Ventilation 30 01/22/24 22:00 98 21 H 01/22/24 22:00 98 21 H 01/22/24 22:00 98 01/22/24 20:00 99 01/22/24 20:00 30 01/22/24 22:00 101.9 F H 98 21 H 143/61 H 94 01/22/24 20:28 98 95 Mechanical Ventilation 30 01/22/24 20:00 101.9 F H 98 20 125/67 94 01/22/24 20:00 98 20 01/22/24 20:00 98 20 01/22/24 17:40 97 93 Mechanical Ventilation 30 01/22/24 18:00 101.7 F H 98 19 122/72 93 01/22/24 18:00 95 18 01/22/24 18:00 86 18 01/22/24 18:00 101.6 F H 72 19 122/72 93 01/22/24 18:00 97 01/22/24 16:00 98 18 94 Mechanical Ventilation 30 01/22/24 16:00 101.7 F H 95 19 116/66 93 01/22/24 16:00 101.6 F H 95 17 116/66 94 01/22/24 16:00 30 01/22/24 16:00 74 01/22/24 16:00 92 18 01/22/24 16:00 95 18 01/22/24 14:25 93 93 Mechanical Ventilation 30 01/22/24 14:00 93 18 01/22/24 14:00 96 19 01/22/24 14:00 95 01/22/24 14:00 101.4 F H 94 21 H 115/61 93 01/22/24 12:00 97 18 01/22/24 12:00 73 23 H 01/22/24 12:00 95 16 93 Mechanical Ventilation 30 01/22/24 12:00 101.2 F H 97 16 140/72 93 01/22/24 12:00 30 01/22/24 12:00 96 Intake/Output Intake/Output: Intake & Output 01/20/24 01/21/24 01/22/24 01/23/24 23:59 23:59 23:59 23:59 Intake Total 1475.9 935.8 1185.6 588 Output Total 3378 2945 145 250 Balance -1902.1 -2009.2 1040.6 338 Meds/Results Medications: Active Medications Generic Name Dose Route Start Last Admin Trade Name Freq PRN Reason Stop Dose Admin Dextrose 12.5 gm 01/20/24 08:35 Dextrose 50% 25 Gm/50 Ml Syringe IV PUSH PRN PRN Hypoglycemia Protocol Epoetin Brent-epbx 10,000 units 01/23/24 20:00 01/23/24 10:48 Epoetin Brent-Epbx 10,000 Units/Ml Vial IV PUSH 01/23/24 20:01 10,000 units ONCE ONE Administration Glucagon 1 mg 01/20/24 08:35 Glucagon For Inj 1 Mg Vial IM PRN PRN Hypoglycemia Protocol Glucose 15 gm 01/20/24 08:35 Glucose Oral Gel 15 Gm Of Glucse In 37.5 Gm Tube PO PRN PRN Hypoglycemia Protocol Fentanyl Citrate 2,500 mcg in 250 mls @ 0 mls/hr 01/17/24 22:35 01/23/24 06:00 Fentanyl 2,500 Mcg/Ns 250 Ml IV CONT 0 mcg/hr .Q0M TANNA 0 mls/hr Titration Protocol Midazolam HCl 100 mg in 100 mls @ 0 mls/hr 01/17/24 22:35 01/23/24 06:00 Versed 100 Mg/Ns 100 Ml IV CONT 0 mg/hr .Q0M TANNA 0 mls/hr Titration Protocol Aztreonam 1 gm/ Sodium 50 mls @ 100 mls/hr 01/19/24 18:00 01/23/24 06:49 Chloride IVPB 100 mls/hr Q12H TANNA Administration Albumin Human 50 mls @ 999 mls/hr 01/19/24 12:02 Albutein IVPB 02/18/24 12:01 Q10M PRN HYPOTENSION Dextrose 1,000 mls @ 100 mls/hr 01/20/24 08:35 Dextrose 5% 1,000 Ml IVPB PRN PRN Hypoglycemia Protocol Ciprofloxacin/Dextrose 200 mls @ 200 mls/hr 01/22/24 10:00 01/22/24 12:00 Cipro 400 Mg/D5w 200 Ml IVPB Infused Q24H TANNA Infusion Vancomycin HCl 1,000 mg in 250 mls @ 250 mls/hr 01/23/24 18:00 Vancomycin 1,000 Mg/Ns 250 Ml IVPB 01/23/24 18:59 ONCE ONE Insulin Aspart 3 - 6 units 01/23/24 08:15 01/23/24 08:32 Insulin Aspart (*Bkc) 100 Units/Ml SUB-Q Not Given Q4H TANNA Protocol Insulin Glargine 15 units 01/23/24 09:00 01/23/24 09:20 Insulin Glargine (*Bkc) 100 Units/Ml SUB-Q 15 units QAM TANNA Administration Multi-Ingred Cream/Lotion/Oil/Oint 1 applic 01/18/24 09:00 01/23/24 08:02 Mineral Oil/White Petrolatum Ointment EACH EYE 1 applic Q12HR TANNA Administration Pantoprazole Sodium 40 mg 01/19/24 09:00 01/23/24 08:02 Pantoprazole Sodium Iv 40 Mg Vial IV PUSH 40 mg Q12HR TANNA Administration Sodium Chloride 10 ml 01/17/24 22:00 01/23/24 05:55 Central Line Flush IV PUSH 10 ml Q8HR TANNA Administration Sodium Chloride 20 ml 01/17/24 16:51 Central Line Flush IV PUSH PRN PRN after blood draws Tolnaftate 1 applic 01/20/24 09:00 01/23/24 08:02 Tolnaftate 1% Powder 45 Gm Btl TOPICAL 1 applic Q12HR TANNA Administration Vancomycin HCl 1 each 01/21/24 09:37 Vancomycin For Hemodialysis IVPB PRN PRN Vancomycin Protocol Radiology Results: ITS Impressions Abdomen/Pelvis CT 01/17/24 10:23 IMPRESSION: 1. 11 mm stone at right ureteropelvic junction with mild right hydronephrosis. 2. 1 mm nonobstructing left kidney stone. 3. 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 Ureter Stent X-Ray 01/17/24 15:20 IMPRESSION: 1. Persistent stone at the right ureteropelvic junction with placement of a right internal ureteral stent in expected position. Is unclear the stone has been removed on the final image and would correlate with procedure note for further detail. Renal Ultrasound 01/17/24 19:03 IMPRESSION: 1. 7.2 cm left renal cyst. Otherwise normal kidneys with no hydronephrosis. Chest/Abdomen/Pelvis CT 01/19/24 09:48 IMPRESSION: 1. Patchy airspace opacities in right lung upper lobe, consistent with atelectasis versus pneumonia. 2. Small pleural effusions, right worse than left. 3. Small volume of ascites. 4. 8 mm stone in right renal pelvis with right internal ureteral stent in expected position. 5. 2 mm nonobstructing left kidney stone. Abdomen X-Ray 01/20/24 14:55 IMPRESSION: 1. No dilated loops of bowel to suggest obstruction. Chest X-Ray 01/23/24 06:01 Impression: Minimal central congestive changes with left basilar atelectasis versus pneumonia. Correlate clinically. Support tubes, as above. Labs Labs: Laboratory Tests 01/23/24 05:16 01/23/24 05:16 Calcium 8.4 Phosphorus 2.6 Magnesium 1.9 Total Bilirubin 0.8 AST 88 H ALT 152 H Alkaline Phosphatase 216 H Total Protein 5.0 L Albumin 2.6 L Random Vancomycin 16.0 Microbiology 01/22/24 10:15 Blood Blood Culture - Preliminary 01/17/24 16:12 Blood Blood Culture - Final
[2024-01-23] MEDS: EPOETIN ALFA-EPBX 10,000 UNITS/ML VIAL 10000 UNITS IV PUSH (10:48)
--- NOTE | 2024-01-23 11:14 | PCFNICU ---
ICU Rounding Note: Pt current nutrition is Nepro at 40 ml/hr. Last recorded weight is 122.1 kg, up from 108.4 kg on admit. Bowel Motility: +BM reported 01/20 Labs Reviewed:Glu 259, GFR 16, BUN 59,Cr 2.9,Alb 2.6 Meds Noted: Protonix, Lantus, Cipro. Skin: WNL Additional Notes: Patient remains on mechanical vent. Tube feedings are being tolerated of Nepro at 40 ml/hr. Dialysis again today. Patient is on waitlist for [facility] for transfer. Agree with diet orders. Following daily in ICU rounds. Will monitor weight labs, skin, oral intake, meds every Tuesday and Tuesday. .
[2024-01-23 12:41] LABS: Glucose Point of Care 197 mg/dl (65-105)
[2024-01-23] MEDS: CIPROFLOXACIN 400 MG/D5W 200ML 200 ML 200 MG IVPB (12:58)
[2024-01-23] MEDS: VANCOMYCIN 1,000 MG/NS 250 ML 1,000 MG/250 ML BAG 250 MG IVPB (14:33)
--- NOTE | 2024-01-23 15:25 | WPDPN ---
Subjective Date/time seen: 01/23/24 15:25 Interval history: Asked to review the chart and exam patient per family request. Discussed with fiber analyst. Patient has necrotic finger tips and cold/pallor/mottling to the hands and feet bilaterally. Also with large area of erythema and necrosis to the right breast, right flank erythema with small eschar and large partially obscured right hip erythema wit recent opened bullae and serous fluid. No palpable pulses to the feet (and no doppler pulses per fiber analyst). Plan for transfer to [place] and awaiting bed availability. Spoke with family including about the plan of care with mechanical ventilation, holding sedation, dialysis and further investigation into her elevated WBC and persistent fevers (although probably related to necrosis and ischemia). Explained that the medical team will continue with current care plan unless family decide to de-escalate care. Family was asking about prognosis. Patient has been off sedation since yesterday but not responsive yet. She may have underlying cognitive issues but no way to tell at this point. MRI brain may be of some help but can not be performed here. Explained patient is making sone urine which is promising but that she may require HD short term and maybe even permanent. Necrotic skin issues would be better managed at at tertiary care center but not the overarching issue at the moment. The fever and elevated WBC without clear infectious etiology noted. On broad spectrum abx. Unclear on the full extent of damage to her hands and feet but suspect she may have some digit lose and maybe even partial foot/hand lose. Explained unclear the extent. They are considering comfort measures. They decline transfer to [facility] system but are still considering having patient going to [place]. They would like to speak with someone about hospice so care coordination notified by RN to come speak with family. [employer] and hospitalist notified of the above. Objective Data Vital Signs Vital Signs: Vital Signs - 24 hr 01/22/24 16:00 01/22/24 16:00 01/22/24 16:00 Temperature Pulse Rate 95 92 74 Respiratory Rate 18 18 Blood Pressure Pulse Oximetry Oxygen Delivery Fraction of Inspired Oxygen 01/22/24 16:00 01/22/24 16:00 01/22/24 16:00 Temperature 101.6 F H 101.7 F H Pulse Rate 95 95 Respiratory Rate 17 19 Blood Pressure 116/66 116/66 Pulse Oximetry 94 93 Oxygen Delivery Fraction of Inspired Oxygen 30 01/22/24 16:00 01/22/24 18:00 01/22/24 18:00 Temperature 101.6 F H Pulse Rate 98 97 72 Respiratory Rate 18 19 Blood Pressure 122/72 Pulse Oximetry 94 93 Oxygen Delivery Mechanical Ventilation Fraction of Inspired Oxygen 30 01/22/24 18:00 01/22/24 18:00 01/22/24 18:00 Temperature 101.7 F H Pulse Rate 86 95 98 Respiratory Rate 18 18 19 Blood Pressure 122/72 Pulse Oximetry 93 Oxygen Delivery Fraction of Inspired Oxygen 01/22/24 17:40 01/22/24 20:00 01/22/24 20:00 Temperature Pulse Rate 97 98 98 Respiratory Rate 20 20 Blood Pressure Pulse Oximetry 93 Oxygen Delivery Mechanical Ventilation Fraction of Inspired Oxygen 30 01/22/24 20:00 01/22/24 20:28 01/22/24 22:00 Temperature 101.9 F H 101.9 F H Pulse Rate 98 98 98 Respiratory Rate 20 21 H Blood Pressure 125/67 143/61 H Pulse Oximetry 94 95 94 Oxygen Delivery Mechanical Ventilation Fraction of Inspired Oxygen 30 01/22/24 20:00 01/22/24 20:00 01/22/24 22:00 Temperature Pulse Rate 99 98 Respiratory Rate Blood Pressure Pulse Oximetry Oxygen Delivery Fraction of Inspired Oxygen 30 01/22/24 22:00 01/22/24 22:00 01/22/24 23:11 Temperature Pulse Rate 98 98 93 Respiratory Rate 21 H 21 H Blood Pressure Pulse Oximetry 95 Oxygen Delivery Mechanical Ventilation Fraction of Inspired Oxygen 30 01/23/24 00:00 01/23/24 00:00 01/23/24 00:00 Temperature 101.9 F H Pulse Rate 95 95 Respiratory Rate 18 18 Blood Pressure 154/65 H Pulse Oximetry 92 Oxygen Delivery Fraction of Inspired Oxygen 30 01/23/24 00:00 01/23/24 00:00 01/23/24 02:00 Temperature Pulse Rate 95 95 97 Respiratory Rate 18 Blood Pressure Pulse Oximetry Oxygen Delivery Fraction of Inspired Oxygen 01/23/24 02:00 01/23/24 02:00 01/23/24 02:00 Temperature 101.6 F H Pulse Rate 95 95 95 Respiratory Rate 18 18 18 Blood Pressure 154/91 H Pulse Oximetry 94 Oxygen Delivery Fraction of Inspired Oxygen 01/23/24 02:48 01/23/24 04:00 01/23/24 06:00 Temperature Pulse Rate 92 94 95 Respiratory Rate 21 H 22 H Blood Pressure Pulse Oximetry 92 Oxygen Delivery Mechanical Ventilation Fraction of Inspired Oxygen 30 01/23/24 04:00 01/23/24 06:00 01/23/24 05:06 Temperature Pulse Rate 94 95 92 Respiratory Rate 21 H 22 H Blood Pressure Pulse Oximetry 95 Oxygen Delivery Mechanical Ventilation Fraction of Inspired Oxygen 30 01/23/24 04:00 01/23/24 06:00 01/23/24 04:00 Temperature Pulse Rate 95 94 Respiratory Rate Blood Pressure Pulse Oximetry Oxygen Delivery Fraction of Inspired Oxygen 30 01/23/24 02:04 01/23/24 02:31 01/23/24 04:03 Temperature 101.6 F H 101.7 F H 101.4 F H Pulse Rate 96 94 94 Respiratory Rate 17 17 21 H Blood Pressure 120/62 Pulse Oximetry 93 94 93 Oxygen Delivery Fraction of Inspired Oxygen 01/23/24 06:01 01/23/24 06:06 01/23/24 08:14 Temperature 101.1 F H 101.1 F H Pulse Rate 95 94 91 Respiratory Rate 23 H 22 H Blood Pressure 183/86 H Pulse Oximetry 94 95 Oxygen Delivery Mechanical Ventilation Fraction of Inspired Oxygen 30 01/23/24 08:36 01/23/24 08:36 01/23/24 08:48 Temperature 100.5 F H Pulse Rate 94 91 Respiratory Rate 22 H Blood Pressure 177/83 H 170/76 H Pulse Oximetry 98 Oxygen Delivery Fraction of Inspired Oxygen 30 01/23/24 12:37 01/23/24 09:00 01/23/24 09:15 Temperature 101.2 F H Pulse Rate 97 93 102 H Respiratory Rate 20 Blood Pressure 128/67 134/75 110/61 Pulse Oximetry 94 Oxygen Delivery Fraction of Inspired Oxygen 01/23/24 09:30 01/23/24 09:45 01/23/24 10:00 Temperature Pulse Rate 101 H 100 115 H Respiratory Rate Blood Pressure 117/76 124/70 137/68 Pulse Oximetry Oxygen Delivery Fraction of Inspired Oxygen 01/23/24 10:15 01/23/24 10:30 01/23/24 10:45 Temperature Pulse Rate 101 H 101 H 103 H Respiratory Rate Blood Pressure 130/87 140/73 146/79 H Pulse Oximetry Oxygen Delivery Fraction of Inspired Oxygen 01/23/24 11:00 01/23/24 11:15 01/23/24 11:30 Temperature Pulse Rate 102 H 101 H 95 Respiratory Rate Blood Pressure 145/73 H 124/74 95/55 L Pulse Oximetry Oxygen Delivery Fraction of Inspired Oxygen 01/23/24 11:45 01/23/24 12:00 01/23/24 12:15 Temperature Pulse Rate 101 H 104 H 102 H Respiratory Rate Blood Pressure 124/71 132/75 130/79 Pulse Oximetry Oxygen Delivery Fraction of Inspired Oxygen 01/23/24 12:21 01/23/24 11:30 01/23/24 08:00 Temperature Pulse Rate 101 H 102 H 93 Respiratory Rate Blood Pressure 141/74 H Pulse Oximetry 95 Oxygen Delivery Mechanical Ventilation Fraction of Inspired Oxygen 30 01/23/24 14:58 Temperature Pulse Rate 96 Respiratory Rate Blood Pressure Pulse Oximetry 95 Oxygen Delivery Mechanical Ventilation Fraction of Inspired Oxygen 30 Intake/Output Intake/Output: Intake & Output 01/20/24 01/21/24 01/22/24 01/23/24 23:59 23:59 23:59 23:59 Intake Total 1475.9 935.8 1185.6 588 Output Total 3378 2945 145 1450 [facility] -1902.1 -2009.2 1040.6 -862 Meds/Results Medications: Active Medications Generic Name Dose Route Start Last Admin Trade Name Freq PRN Reason Stop Dose Admin Dextrose 12.5 gm 01/20/24 08:35 Dextrose 50% 25 Gm/50 Ml Syringe IV PUSH PRN PRN Hypoglycemia Protocol Epoetin Brent-epbx 10,000 units 01/23/24 20:00 01/23/24 10:48 Epoetin Brent-Epbx 10,000 Units/Ml Vial IV PUSH 01/23/24 20:01 10,000 units ONCE ONE Administration Glucagon 1 mg 01/20/24 08:35 Glucagon For Inj 1 Mg Vial IM PRN PRN Hypoglycemia Protocol Glucose 15 gm 01/20/24 08:35 Glucose Oral Gel 15 Gm Of Glucse In 37.5 Gm Tube PO PRN PRN Hypoglycemia Protocol Aztreonam 1 gm/ Sodium 50 mls @ 100 mls/hr 01/19/24 18:00 01/23/24 06:49 Chloride IVPB 100 mls/hr Q12H TANNA Administration Albumin Human 50 mls @ 999 mls/hr 01/19/24 12:02 Albutein IVPB 02/18/24 12:01 Q10M PRN HYPOTENSION Dextrose 1,000 mls @ 100 mls/hr 01/20/24 08:35 Dextrose 5% 1,000 Ml IVPB PRN PRN Hypoglycemia Protocol Ciprofloxacin/Dextrose 200 mls @ 200 mls/hr 01/22/24 10:00 01/23/24 12:58 Cipro 400 Mg/D5w 200 Ml IVPB 200 mls/hr Q24H TANNA Administration Vancomycin HCl 1,000 mg in 250 mls @ 250 mls/hr 01/23/24 18:00 01/23/24 14:33 Vancomycin 1,000 Mg/Ns 250 Ml IVPB 01/23/24 18:59 250 mls/hr ONCE ONE Administration Insulin Aspart 3 - 6 units 01/23/24 08:15 01/23/24 12:52 Insulin Aspart (*Bkc) 100 Units/Ml SUB-Q Not Given Q4H TANNA Protocol Insulin Glargine 15 units 01/23/24 09:00 01/23/24 09:20 Insulin Glargine (*Bkc) 100 Units/Ml SUB-Q 15 units QAM TANNA Administration Multi-Ingred Cream/Lotion/Oil/Oint 1 applic 01/18/24 09:00 01/23/24 08:02 Mineral Oil/White Petrolatum Ointment EACH EYE 1 applic Q12HR TANNA Administration Pantoprazole Sodium 40 mg 01/19/24 09:00 01/23/24 08:02 Pantoprazole Sodium Iv 40 Mg Vial IV PUSH 40 mg Q12HR TANNA Administration Sodium Chloride 10 ml 01/17/24 22:00 01/23/24 13:03 Central Line Flush IV PUSH 10 ml Q8HR TANNA Administration Sodium Chloride 20 ml 01/17/24 16:51 Central Line Flush IV PUSH PRN PRN after blood draws Tolnaftate 1 applic 01/20/24 09:00 01/23/24 08:02 Tolnaftate 1% Powder 45 Gm Btl TOPICAL 1 applic Q12HR TANNA Administration Vancomycin HCl 1 each 01/21/24 09:37 Vancomycin For Hemodialysis IVPB PRN PRN Vancomycin Protocol Radiology Results: ITS Impressions Abdomen/Pelvis CT 01/17/24 10:23 IMPRESSION: 1. 11 mm stone at right ureteropelvic junction with mild right hydronephrosis. 2. 1 mm nonobstructing left kidney stone. 3. 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 Ureter Stent X-Ray 01/17/24 15:20 IMPRESSION: 1. Persistent stone at the right ureteropelvic junction with placement of a right internal ureteral stent in expected position. Is unclear the stone has been removed on the final image and would correlate with procedure note for further detail. Renal Ultrasound 01/17/24 19:03 IMPRESSION: 1. 7.2 cm left renal cyst. Otherwise normal kidneys with no hydronephrosis. Abdomen X-Ray 01/20/24 14:55 IMPRESSION: 1. No dilated loops of bowel to suggest obstruction. Chest X-Ray 01/23/24 06:01 Impression: Minimal central congestive changes with left basilar atelectasis versus pneumonia. Correlate clinically. Support tubes, as above. Chest/Abdomen/Pelvis CT 01/23/24 15:08 IMPRESSION: 1. Persistent patchy airspace opacities in right lung upper lobe, consistent with atelectasis versus pneumonia. 2. Small pleural effusions. 3. Small volume ascites. 4. 8 mm stone in right renal pelvis. Right internal ureteral stent in expected position. 5. 2 mm nonobstructing left kidney stone. Head CT 01/23/24 15:14 IMPRESSION: 1. No acute intracranial process. Labs Labs: Laboratory Results - last 24 hr 01/22/24 01/22/24 01/22/24 16:31 20:33 20:35 WBC RBC Hgb Hct MCV MCH MCHC RDW Plt Count MPV % Immature Plt Fraction Puncture Site ABG pH ABG pCO2 ABG pO2 ABG PO2/FiO2 Ratio ABG HCO3 ABG O2 Saturation ABG O2 Content ABG Base Excess A-a Gradient Oxyhemoglobin Carboxyhemoglobin Methemoglobin Reduced Hemoglobin Total Hemoglobin O2 Delivery Device O2 Liters/Min Minute Volume Vent Rate Vent Mode FiO2 Tidal Volume PEEP Peak Inspir Pressure Pressure Support Sodium Potassium Chloride Carbon Dioxide Anion Gap BUN Creatinine Estim Creat Clear Calc Estimated GFR Glucose POC Capillary Glucose 189 H < 20 L* 72 Calcium Phosphorus Magnesium Total Bilirubin AST ALT Alkaline Phosphatase Total Protein Albumin Random Vancomycin 01/23/24 01/23/24 01/23/24 00:28 00:30 05:09 WBC RBC Hgb Hct MCV MCH MCHC RDW Plt Count MPV % Immature Plt Fraction Puncture Site Cancelled ABG pH Cancelled ABG pCO2 Cancelled ABG pO2 Cancelled ABG PO2/FiO2 Ratio Cancelled ABG HCO3 Cancelled ABG O2 Saturation Cancelled ABG O2 Content Cancelled ABG Base Excess Cancelled A-a Gradient Cancelled Oxyhemoglobin Cancelled Carboxyhemoglobin Methemoglobin Reduced Hemoglobin Total Hemoglobin Cancelled O2 Delivery Device Cancelled O2 Liters/Min Cancelled Minute Volume Vent Rate Vent Mode FiO2 Cancelled Tidal Volume PEEP Peak Inspir Pressure Pressure Support Sodium Potassium Chloride Carbon Dioxide Anion Gap BUN Creatinine Estim Creat Clear Calc Estimated GFR Glucose POC Capillary Glucose 245 H 233 H Calcium Phosphorus Magnesium Total Bilirubin AST ALT Alkaline Phosphatase Total Protein Albumin Random Vancomycin 01/23/24 01/23/24 01/23/24 05:16 05:23 05:45 WBC 58.3 H* RBC 2.80 L Hgb 9.1 L Hct 27.8 L MCV 99.3 MCH 32.5 MCHC 32.7 RDW 14.9 H Plt Count 49 L MPV 12.4 H % Immature Plt Fraction 16.6 H Puncture Site Right brachial ABG pH 7.459 H ABG pCO2 36.9 ABG pO2 74.3 L ABG PO2/FiO2 Ratio 2.48 ABG HCO3 25.6 ABG O2 Saturation 95.7 ABG O2 Content 13.7 L ABG Base Excess 1.8 A-a Gradient 96.2 Oxyhemoglobin 95.0 Carboxyhemoglobin 0.2 Methemoglobin 0.2 Reduced Hemoglobin 4.6 Total Hemoglobin 10.2 L O2 Delivery Device Ventilator O2 Liters/Min Not Reportable Minute Volume Not Reportable Vent Rate 16 Vent Mode Cmv FiO2 30 Tidal Volume 360 PEEP 8 Peak Inspir Pressure Not Reportable Pressure Support Not Reportable Sodium 137 Potassium 4.1 Chloride 102 Carbon Dioxide 28 Anion Gap 7 BUN 59 H D Creatinine 2.90 H Estim Creat Clear Calc 18 Estimated GFR 16 L Glucose 259 H POC Capillary Glucose 214 H Calcium 8.4 Phosphorus 2.6 Magnesium 1.9 Total Bilirubin 0.8 AST 88 H ALT 152 H Alkaline Phosphatase 216 H Total Protein 5.0 L Albumin 2.6 L Random Vancomycin 16.0 01/23/24 01/23/24 07:43 12:38 WBC RBC Hgb Hct MCV MCH MCHC RDW Plt Count MPV % Immature Plt Fraction Puncture Site ABG pH ABG pCO2 ABG pO2 ABG PO2/FiO2 Ratio ABG HCO3 ABG O2 Saturation ABG O2 Content ABG Base Excess A-a Gradient Oxyhemoglobin Carboxyhemoglobin Methemoglobin Reduced Hemoglobin Total Hemoglobin O2 Delivery Device O2 Liters/Min Minute Volume Vent Rate Vent Mode FiO2 Tidal Volume PEEP Peak Inspir Pressure Pressure Support Sodium Potassium Chloride Carbon Dioxide Anion Gap BUN Creatinine Estim Creat Clear Calc Estimated GFR Glucose POC Capillary Glucose 282 H 197 H Calcium Phosphorus Magnesium Total Bilirubin AST ALT Alkaline Phosphatase Total Protein Albumin Random Vancomycin
--- NOTE | 2024-01-23 17:29 | P.PN_ITS ---
Progress Note: A&P Assessment and Plan (1) Septic shock: Code(s): A41.9 - Sepsis, unspecified organism; R65.21 - Severe sepsis with septic shock Status: Acute Assessment and Plan: The patient meets criteria for septic shock with refractory hypotension, acute kidney injury, leukocytosis with bandemia, tachypnea, tachycardia, and fever. Source is urinary tract infection related to obstructing ureteral stone. * Central line inserted 01/17/2024 per anesthesiologist. * Currently on norepinephrine, vasopressin, and phenylephrine. * Maintain SBP > 95 and MAP > 65 for adequate end-organ perfusion. * Add stress dose steroids, hydrocortisone 100 mg q.8 hours. * Continue aztreonam and vancomycin pending blood and urine cultures. (2) Urinary tract infection: Code(s): N39.0 - Urinary tract infection, site not specified Status: Acute Assessment and Plan: UTI secondary to obstructing stones. Urinalysis was positive for 3+ leukocyte esterase, > 100 WBC, and 4+ bacteria. * Receive ciprofloxacin 200 mg in the ED; she has multiple drug allergies. * Changed to aztreonam 1 g q.8 hours and vancomycin pending cultures. (3) Right ureteral stone: Code(s): N20.1 - Calculus of ureter Status: Acute Assessment and Plan: CT scan showed an 11 mm stone at the right ureteropelvic junction with mild right hydronephrosis. * Postoperative day 0 status post cystoscopy with ureteral stent placement. * Needs close follow-up with Dr. Gudino for definitive management pending resolution of infection. (4) Hydronephrosis: Code(s): N13.30 - Unspecified hydronephrosis Status: Acute Assessment and Plan: CT scan showed mild right hydronephrosis secondary to ureteral stone. * Status post cystoscopy and stent placement. (5) Acute kidney injury: Code(s): N17.9 - Acute kidney failure, unspecified Status: Acute Assessment and Plan: Due to a combination of obstructing stone, hypoperfusion from hypotension, and sepsis; she is also on thiazide and loop diuretics as well as NSAIDS. * Rocha catheter has been inserted for strict I/O with minimal output since surgery. * Continue judicious IV fluid rehydration with close monitoring of volume status. * Renally dose all medications and hold nephrotoxic agents. * Renal ultrasound has been ordered for a.m. (6) Acute respiratory failure: Code(s): J96.00 - Acute respiratory failure, unspecified whether with hypoxia or hypercapnia Status: Acute Assessment and Plan: Patient is tachypneic and hypoxic due to acidosis. Chest x-ray is clear. * ABG shows concomitant metabolic and respiratory acidosis. * Patient was started on Vapotherm with some improvement but deteriorated and was subsequently intubated. * Currently on CMV with a tidal volume of 350, rate 24, peep 5. * Sedation with very low-dose fentanyl (patient reports significant nausea and vomiting) and midazolam. (7) Electrolyte abnormality: Code(s): E87.8 - Other disorders of electrolyte and fluid balance, not elsewhere classified Status: Acute Assessment and Plan: Patient has several electrolyte abnormalities including hypocalcemia and hypomagnesemia. * Calcium and magnesium will be replaced and monitored closely. (8) Hypertension: Code(s): I10 - Essential (primary) hypertension Status: Acute Assessment and Plan: She has refractory hypotension is currently on vasopressors as above. * Continue to hold antihypertensives. Plan on 01/16 patient was seen by her urologist for infected stone and had cystoscopy and right ureteral stent placement emergently, and was found to have UTI- pyelonephritis, Patient was started on broad-spectrum antibiotics. patient went to sepsis with hypotension was started on vasopressin, norepinephrine and fluids, patient condition was worsening and patient was intubated. on 01/17 zmt operator spoke with the patient's family and recommended to add another pressor and also discussed the long-term care and family has decided to place the patient DNR. patient clinical symptoms are improving her BP is trending up and currently requiring only one pressure, however her Sr Cr remains elevated suspect ATN 2/2 hypotension, patient have temporary dialysis to improver her kidney function, also there was concern that patient may have injury her intestine, CT scan of abdomen did not show any perforation and seen by general surgeon does not suspect patient has any perforation however there is likelihood of ischemic bowl possibly 2/2 hypoperfusion. we appreciate zmt operator, will continue to monitor and follow the patient. on 01/[address] Cruz zmt operator patient right side appears weak and cyanotic patient does not feel any pain, and left chest is cyanotic, the zmt operator has spoken with an zmt operator at [facility] patient is accepted waiting for a bed. today patient's , son daughter are present in the room, Patient called Dr. Bowen to discuss further, I spoke with Dr. Mccoy, patient's is considering withdrawal of care and possibly hospice, I also spoke with the patient family, they are still have not decided. I have answered all their questions, will continue to monitor and further recommendation to follow. Subjective Date/time seen: 01/23/24 17:29 Interval history: on 01/16 patient was seen by her urologist for infected stone and had cystoscopy and right ureteral stent placement emergently, and was found to have UTI- pyelonephritis, Patient was started on broad-spectrum antibiotics. patient went to sepsis with hypotension was started on vasopressin, norepinephrine and fluids, patient condition was worsening and patient was intubated. on 01/17 zmt operator spoke with the patient's family and recommended to add another pressor and also discussed the long-term care and family has decided to place the patient DNR. patient clinical symptoms are improving her BP is trending up and currently requiring only one pressure, however her Sr Cr remains elevated suspect ATN 2/2 hypotension, patient have temporary dialysis to improver her kidney function, also there was concern that patient may have injury her intestine, CT scan of abdomen did not show any perforation and seen by general surgeon does not suspect patient has any perforation however there is likelihood of ischemic bowl possibly 2/2 hypoperfusion. we appreciate zmt operator, will continue to monitor and follow the patient. on 01/[address] Cruz zmt operator patient right side appears weak and cyanotic patient does not feel any pain, and left chest is cyanotic, the zmt operator has spoken with an zmt operator at [facility] patient is accepted waiting for a bed. today patient's , son daughter are present in the room, Patient called Dr. Bowen to discuss further, I spoke with Dr. Mccoy, patient's is considering withdrawal of care and possibly hospice, I also spoke with the patient family, they are still have not decided. I have answered all their questions, will continue to monitor and further recommendation to follow. Review of Systems Review of Systems: ROS unobtainable: Yes unobtainable due to endotracheal tube Exam Narrative: Morbidly obese Patient is comfortable, NAD HEENT: ET tube in place LUNGS:CTA HEART: RR S1S2 ABD: BS+, Soft and nontender Lower extremities: no edema SKIN: nonjaundiced Neuro: On vent and sedated. Objective Data Vital Signs Vital Signs: Vital Signs - 24 hr 01/22/24 18:00 01/22/24 18:00 01/22/24 18:00 Temperature 38.7 C H Pulse Rate 97 72 86 Respiratory Rate 19 18 Blood Pressure 122/72 Pulse Oximetry 93 Oxygen Delivery Fraction of Inspired Oxygen 01/22/24 18:00 01/22/24 18:00 01/22/24 17:40 Temperature 38.7 C H Pulse Rate 95 98 97 Respiratory Rate 18 19 Blood Pressure 122/72 Pulse Oximetry 93 93 Oxygen Delivery Mechanical Ventilation Fraction of Inspired Oxygen 30 01/22/24 20:00 01/22/24 20:00 01/22/24 20:00 Temperature 38.8 C H Pulse Rate 98 98 98 Respiratory Rate 20 20 20 Blood Pressure 125/67 Pulse Oximetry 94 Oxygen Delivery Fraction of Inspired Oxygen 01/22/24 20:28 01/22/24 22:00 01/22/24 20:00 Temperature 38.8 C H Pulse Rate 98 98 Respiratory Rate 21 H Blood Pressure 143/61 H Pulse Oximetry 95 94 Oxygen Delivery Mechanical Ventilation Fraction of Inspired Oxygen 30 30 01/22/24 20:00 01/22/24 22:00 01/22/24 22:00 Temperature Pulse Rate 99 98 98 Respiratory Rate 21 H Blood Pressure Pulse Oximetry Oxygen Delivery Fraction of Inspired Oxygen 01/22/24 22:00 01/22/24 23:11 01/23/24 00:00 Temperature Pulse Rate 98 93 Respiratory Rate 21 H Blood Pressure Pulse Oximetry 95 Oxygen Delivery Mechanical Ventilation Fraction of Inspired Oxygen 30 30 01/23/24 00:00 01/23/24 00:00 01/23/24 00:00 Temperature 38.8 C H Pulse Rate 95 95 95 Respiratory Rate 18 18 18 Blood Pressure 154/65 H Pulse Oximetry 92 Oxygen Delivery Fraction of Inspired Oxygen 01/23/24 00:00 01/23/24 02:00 01/23/24 02:00 Temperature 38.7 C H Pulse Rate 95 97 95 Respiratory Rate 18 Blood Pressure 154/91 H Pulse Oximetry 94 Oxygen Delivery Fraction of Inspired Oxygen 01/23/24 02:00 01/23/24 02:00 01/23/24 02:48 Temperature Pulse Rate 95 95 92 Respiratory Rate 18 18 Blood Pressure Pulse Oximetry 92 Oxygen Delivery Mechanical Ventilation Fraction of Inspired Oxygen 30 01/23/24 04:00 01/23/24 06:00 01/23/24 04:00 Temperature Pulse Rate 94 95 94 Respiratory Rate 21 H 22 H 21 H Blood Pressure Pulse Oximetry Oxygen Delivery Fraction of Inspired Oxygen 01/23/24 06:00 01/23/24 05:06 01/23/24 04:00 Temperature Pulse Rate 95 92 95 Respiratory Rate 22 H Blood Pressure Pulse Oximetry 95 Oxygen Delivery Mechanical Ventilation Fraction of Inspired Oxygen 30 01/23/24 06:00 01/23/24 04:00 01/23/24 02:04 Temperature 38.7 C H Pulse Rate 94 96 Respiratory Rate 17 Blood Pressure Pulse Oximetry 93 Oxygen Delivery Fraction of Inspired Oxygen 30 01/23/24 02:31 01/23/24 04:03 01/23/24 06:01 Temperature 38.7 C H 38.6 C H 38.4 C H Pulse Rate 94 94 95 Respiratory Rate 17 21 H 23 H Blood Pressure 120/62 183/86 H Pulse Oximetry 94 93 94 Oxygen Delivery Fraction of Inspired Oxygen 01/23/24 06:06 01/23/24 08:14 01/23/24 08:36 Temperature 38.4 C H Pulse Rate 94 91 Respiratory Rate 22 H Blood Pressure Pulse Oximetry 95 Oxygen Delivery Mechanical Ventilation Fraction of Inspired Oxygen 30 30 01/23/24 08:36 01/23/24 08:48 01/23/24 12:37 Temperature 38.1 C H 38.4 C H Pulse Rate 94 91 97 Respiratory Rate 22 H 20 Blood Pressure 177/83 H 170/76 H 128/67 Pulse Oximetry 98 94 Oxygen Delivery Fraction of Inspired Oxygen 01/23/24 09:00 01/23/24 09:15 01/23/24 09:30 Temperature Pulse Rate 93 102 H 101 H Respiratory Rate Blood Pressure 134/75 110/61 117/76 Pulse Oximetry Oxygen Delivery Fraction of Inspired Oxygen 01/23/24 09:45 01/23/24 10:00 01/23/24 10:15 Temperature Pulse Rate 100 115 H 101 H Respiratory Rate Blood Pressure 124/70 137/68 130/87 Pulse Oximetry Oxygen Delivery Fraction of Inspired Oxygen 01/23/24 10:30 01/23/24 10:45 01/23/24 11:00 Temperature Pulse Rate 101 H 103 H 102 H Respiratory Rate Blood Pressure 140/73 146/79 H 145/73 H Pulse Oximetry Oxygen Delivery Fraction of Inspired Oxygen 01/23/24 11:15 01/23/24 11:30 01/23/24 11:45 Temperature Pulse Rate 101 H 95 101 H Respiratory Rate Blood Pressure 124/74 95/55 L 124/71 Pulse Oximetry Oxygen Delivery Fraction of Inspired Oxygen 01/23/24 12:00 01/23/24 12:15 01/23/24 12:21 Temperature Pulse Rate 104 H 102 H 101 H Respiratory Rate Blood Pressure 132/75 130/79 141/74 H Pulse Oximetry Oxygen Delivery Fraction of Inspired Oxygen 01/23/24 11:30 01/23/24 08:00 01/23/24 14:58 Temperature Pulse Rate 102 H 93 96 Respiratory Rate Blood Pressure Pulse Oximetry 95 95 Oxygen Delivery Mechanical Ventilation Mechanical Ventilation Fraction of Inspired Oxygen 30 30 01/23/24 08:00 01/23/24 10:00 01/23/24 12:00 Temperature 38.1 C H 38.3 C H 38.5 C H Pulse Rate 93 100 117 H Respiratory Rate 18 22 H 23 H Blood Pressure 175/91 H 137/68 132/75 Pulse Oximetry 95 94 95 Oxygen Delivery Fraction of Inspired Oxygen 01/23/24 14:00 01/23/24 08:00 01/23/24 12:00 Temperature 38.4 C H Pulse Rate 99 Respiratory Rate 24 H Blood Pressure 141/79 H Pulse Oximetry 96 Oxygen Delivery Mechanical Ventilation Mechanical Ventilation Fraction of Inspired Oxygen 01/23/24 08:00 01/23/24 12:00 Temperature Pulse Rate Respiratory Rate Blood Pressure Pulse Oximetry Oxygen Delivery Fraction of Inspired Oxygen 30 30 Intake/Output Intake/Output: Intake & Output 01/20/24 01/21/24 01/22/24 01/23/24 23:59 23:59 23:59 23:59 Intake Total 1475.9 935.8 1185.6 588 Output Total 3378 2945 145 1450 Balance -1902.1 -2009.2 1040.6 -862 Meds/Results Medications: Active Medications Generic Name Dose Route Start Last Admin Trade Name Freq PRN Reason Stop Dose Admin Dextrose 12.5 gm 01/20/24 08:35 Dextrose 50% 25 Gm/50 Ml Syringe IV PUSH PRN PRN Hypoglycemia Protocol Epoetin Brent-epbx 10,000 units 01/23/24 20:00 01/23/24 10:48 Epoetin Brent-Epbx 10,000 Units/Ml Vial IV PUSH 01/23/24 20:01 10,000 units ONCE ONE Administration Glucagon 1 mg 01/20/24 08:35 Glucagon For Inj 1 Mg Vial IM PRN PRN Hypoglycemia Protocol Glucose 15 gm 01/20/24 08:35 Glucose Oral Gel 15 Gm Of Glucse In 37.5 Gm Tube PO PRN PRN Hypoglycemia Protocol Aztreonam 1 gm/ Sodium 50 mls @ 100 mls/hr 01/19/24 18:00 01/23/24 06:49 Chloride IVPB 100 mls/hr Q12H TANNA Administration Albumin Human 50 mls @ 999 mls/hr 01/19/24 12:02 Albutein IVPB 02/18/24 12:01 Q10M PRN HYPOTENSION Dextrose 1,000 mls @ 100 mls/hr 01/20/24 08:35 Dextrose 5% 1,000 Ml IVPB PRN PRN Hypoglycemia Protocol Ciprofloxacin/Dextrose 200 mls @ 200 mls/hr 01/22/24 10:00 01/23/24 12:58 Cipro 400 Mg/D5w 200 Ml IVPB 200 mls/hr Q24H TANNA Administration Vancomycin HCl 1,000 mg in 250 mls @ 250 mls/hr 01/23/24 18:00 01/23/24 14:33 Vancomycin 1,000 Mg/Ns 250 Ml IVPB 01/23/24 18:59 250 mls/hr ONCE ONE Administration Insulin Aspart 3 - 6 units 01/23/24 08:15 01/23/24 12:52 Insulin Aspart (*Bkc) 100 Units/Ml SUB-Q Not Given Q4H [facility] Protocol Insulin Glargine 15 units 01/23/24 09:00 01/23/24 09:20 Insulin Glargine (*Bkc) 100 Units/Ml SUB-Q 15 units QAM TANNA Administration Multi-Ingred Cream/Lotion/Oil/Oint 1 applic 01/18/24 09:00 01/23/24 08:02 Mineral Oil/White Petrolatum Ointment EACH EYE 1 applic Q12HR TANNA Administration Pantoprazole Sodium 40 mg 01/19/24 09:00 01/23/24 08:02 Pantoprazole Sodium Iv 40 Mg Vial IV PUSH 40 mg Q12HR TANNA Administration Sodium Chloride 10 ml 01/17/24 22:00 01/23/24 13:03 Central Line Flush IV PUSH 10 ml Q8HR TANNA Administration Sodium Chloride 20 ml 01/17/24 16:51 Central Line Flush IV PUSH PRN PRN after blood draws Tolnaftate 1 applic 01/20/24 09:00 01/23/24 08:02 Tolnaftate 1% Powder 45 Gm Btl TOPICAL 1 applic Q12HR TANNA Administration Vancomycin HCl 1 each 01/21/24 09:37 Vancomycin For Hemodialysis IVPB PRN PRN Vancomycin Protocol Radiology Results: ITS Impressions Abdomen/Pelvis CT 01/17/24 10:23 IMPRESSION: 1. 11 mm stone at right ureteropelvic junction with mild right hydronephrosis. 2. 1 mm nonobstructing left kidney stone. 3. 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 Ureter Stent X-Ray 01/17/24 15:20 IMPRESSION: 1. Persistent stone at the right ureteropelvic junction with placement of a right internal ureteral stent in expected position. Is unclear the stone has been removed on the final image and would correlate with procedure note for further detail. Renal Ultrasound 01/17/24 19:03 IMPRESSION: 1. 7.2 cm left renal cyst. Otherwise normal kidneys with no hydronephrosis. Abdomen X-Ray 01/20/24 14:55 IMPRESSION: 1. No dilated loops of bowel to suggest obstruction. Chest X-Ray 01/23/24 06:01 Impression: Minimal central congestive changes with left basilar atelectasis versus pneumonia. Correlate clinically. Support tubes, as above. Chest/Abdomen/Pelvis CT 01/23/24 15:08 IMPRESSION: 1. Persistent patchy airspace opacities in right lung upper lobe, consistent with atelectasis versus pneumonia. 2. Small pleural effusions. 3. Small volume ascites. 4. 8 mm stone in right renal pelvis. Right internal ureteral stent in expected position. 5. 2 mm nonobstructing left kidney stone. Head CT 01/23/24 15:14 IMPRESSION: 1. No acute intracranial process. Labs Labs: Laboratory Results - last 24 hr 01/22/24 01/22/24 01/23/24 20:33 20:35 00:28 WBC RBC Hgb Hct MCV MCH MCHC RDW Plt Count MPV % Immature Plt Fraction Puncture Site ABG pH ABG pCO2 ABG pO2 ABG PO2/FiO2 Ratio ABG HCO3 ABG O2 Saturation ABG O2 Content ABG Base Excess A-a Gradient Oxyhemoglobin Carboxyhemoglobin Methemoglobin Reduced Hemoglobin Total Hemoglobin O2 Delivery Device O2 Liters/Min Minute Volume Vent Rate Vent Mode FiO2 Tidal Volume PEEP Peak Inspir Pressure Pressure Support Sodium Potassium Chloride Carbon Dioxide Anion Gap BUN Creatinine Estim Creat Clear Calc Estimated GFR Glucose POC Capillary Glucose < 20 L* 72 245 H Calcium Phosphorus Magnesium Total Bilirubin AST ALT Alkaline Phosphatase Total Protein Albumin Random Vancomycin 01/23/24 01/23/24 01/23/24 00:30 05:09 05:16 WBC 58.3 H* RBC 2.80 L Hgb 9.1 L Hct 27.8 L MCV 99.3 MCH 32.5 MCHC 32.7 RDW 14.9 H Plt Count 49 L MPV 12.4 H % Immature Plt Fraction 16.6 H Puncture Site Cancelled ABG pH Cancelled ABG pCO2 Cancelled ABG pO2 Cancelled ABG PO2/FiO2 Ratio Cancelled ABG HCO3 Cancelled ABG O2 Saturation Cancelled ABG O2 Content Cancelled ABG Base Excess Cancelled A-a Gradient Cancelled Oxyhemoglobin Cancelled Carboxyhemoglobin Methemoglobin Reduced Hemoglobin Total Hemoglobin Cancelled O2 Delivery Device Cancelled O2 Liters/Min Cancelled Minute Volume Vent Rate Vent Mode FiO2 Cancelled Tidal Volume PEEP Peak Inspir Pressure Pressure Support Sodium 137 Potassium 4.1 Chloride 102 Carbon Dioxide 28 Anion Gap 7 BUN 59 H D Creatinine 2.90 H Estim Creat Clear Calc 18 Estimated GFR 16 L Glucose 259 H POC Capillary Glucose 233 H Calcium 8.4 Phosphorus 2.6 Magnesium 1.9 Total Bilirubin 0.8 AST 88 H ALT 152 H Alkaline Phosphatase 216 H Total Protein 5.0 L Albumin 2.6 L Random Vancomycin 16.0 01/23/24 01/23/24 01/23/24 05:23 05:45 07:43 WBC RBC Hgb Hct MCV MCH MCHC RDW Plt Count MPV % Immature Plt Fraction Puncture Site Right brachial ABG pH 7.459 H ABG pCO2 36.9 ABG pO2 74.3 L ABG PO2/FiO2 Ratio 2.48 ABG HCO3 25.6 ABG O2 Saturation 95.7 ABG O2 Content 13.7 L ABG Base Excess 1.8 A-a Gradient 96.2 Oxyhemoglobin 95.0 Carboxyhemoglobin 0.2 Methemoglobin 0.2 Reduced Hemoglobin 4.6 Total Hemoglobin 10.2 L O2 Delivery Device Ventilator O2 Liters/Min Not Reportable Minute Volume Not Reportable Vent Rate 16 Vent Mode Cmv FiO2 30 Tidal Volume 360 PEEP 8 Peak Inspir Pressure Not Reportable Pressure Support Not Reportable Sodium Potassium Chloride Carbon Dioxide Anion Gap BUN Creatinine Estim Creat Clear Calc Estimated GFR Glucose POC Capillary Glucose 214 H 282 H Calcium Phosphorus Magnesium Total Bilirubin AST ALT Alkaline Phosphatase Total Protein Albumin Random Vancomycin 01/23/24 12:38 WBC RBC Hgb Hct MCV MCH MCHC RDW Plt Count MPV % Immature Plt Fraction Puncture Site ABG pH ABG pCO2 ABG pO2 ABG PO2/FiO2 Ratio ABG HCO3 ABG O2 Saturation ABG O2 Content ABG Base Excess A-a Gradient Oxyhemoglobin Carboxyhemoglobin Methemoglobin Reduced Hemoglobin Total Hemoglobin O2 Delivery Device O2 Liters/Min Minute Volume Vent Rate Vent Mode FiO2 Tidal Volume PEEP Peak Inspir Pressure Pressure Support Sodium Potassium Chloride Carbon Dioxide Anion Gap BUN Creatinine Estim Creat Clear Calc Estimated GFR Glucose POC Capillary Glucose 197 H Calcium Phosphorus Magnesium Total Bilirubin AST ALT Alkaline Phosphatase Total Protein Albumin Random Vancomycin
[2024-01-23 18:33] LABS: Glucose Point of Care 209 mg/dl (65-105)
--- NOTE | 2024-01-23 19:50 | PC.NURSE ---
Family approached this RN and Connie RN during change of shift report. Family requesting patient be made comfort care. Dr. Smith notified. Dr. Smith asked that hospitalist come talk to family to clarify decision. Dr. Gomez notified and stated she will come to bedside to discuss with family.
--- NOTE | 2024-01-23 20:23 | P.PNCROSS_ITS ---
Event Note Event Note Event Note: I was called to the patient's room after family's decision to withdraw support gemma care. Patient has a family members were in the room we had discussion about end of life and withdrawal of support. who is at bedside and power of trust and estates attorney I stated that the have been her wishes after patient not believed to survive with a meaningful functional life. After discussing comfort care. Decision was made to go forward with withdrawal of support.
--- NOTE | 2024-01-23 20:34 | PC.NURSE ---
2010 Dr. Gomez to bedside to discuss comfort care with patient's family.Family education and states they would like to continue with comfort care. Dr. Smith notified.
[2024-01-23] MEDS: LORazepam INJ (*CRX) 2 MG/ML VIAL IV PUSH ×2 (20:36→22:01)
[2024-01-23] MEDS: MORPHINE SULFATE INJ (*CRX) 10 MG/ML AMP 5 MG IV PUSH (20:38)
[2024-01-23] MEDS: MORPHINE SULFATE (*CRX) 2 MG/ML INJ 4 MG IV PUSH ×2 (21:26→22:00)
--- NOTE | 2024-01-23 22:22 | PC.NURSE ---
RECEIVED PT VIA TRANSFER FROM ICU TO ROOM 242. PT TRANSFERRED FROM ICU BED TO MEDICAL BED. FAMILY AT BEDSIDE. PT APPEARS COMFORTABLE
[2024-01-23] MEDS: MORPHINE 50 MG/NS 100ML (*CRX) 50 MG/100 ML BAG 20 MG IV CONT (22:51)
[2024-01-24] MEDS: LORazepam INJ (*CRX) 2 MG/ML VIAL IV PUSH (00:13)
--- NOTE | 2024-01-24 00:24 | PC.NURSE ---
PT FAMILY REQUESTING ATIVAN TO BE GIVEN. PT APPEARS COMFORTABLE DOES NOT RESPOND TO ANY STIMULI. NO AGITATION OR RESTLESSNESS
[2024-01-24 03:33] VITALS: PULSE 102; RESP 25
[2024-01-24] MEDS: MORPHINE 50 MG/NS 100ML (*CRX) 50 MG/100 ML BAG 20 MG IV CONT ×2 (03:33→08:38)
[2024-01-24] MEDS: CENTRAL LINE FLUSH 10 ML IV PUSH (06:01)
[2024-01-24 08:00] VITALS: BP 59/24; PULSE 103; RESP 22; TEMP 37.9
[2024-01-24 08:33] VITALS: PULSE 80; RESP 16
[2024-01-24 08:38] VITALS: PULSE 80; RESP 16
[2024-01-24 13:28] VITALS: BP 70/35; PULSE 83
--- NOTE | 2024-01-24 13:35 | PC.NURSE ---
Patient before admitted into [facility]
--- NOTE | 2024-01-24 14:02 | PM.DDS ---
Discharge Summary Probable Cause of Probable Cause of : Septic shock Summary Hospital Course: on 01/16 patient was seen by her urologist for infected stone and had cystoscopy and right ureteral stent placement emergently, and was found to have UTI-pyelonephritis, Patient was started on broad-spectrum antibiotics. patient went to sepsis with hypotension was started on vasopressin, norepinephrine and fluids, patient condition was worsening and patient was intubated. on 01/17 skin care consultant spoke with the patient's family and recommended to add another pressor and also discussed the long-term care and family has decided to place the patient DNR. patient clinical symptoms are improving her BP is trending up and currently requiring only one pressure, however her Sr Cr remains elevated suspect ATN 2/2 hypotension, patient have temporary dialysis to improver her kidney function, also there was concern that patient may have injury her intestine, CT scan of abdomen did not show any perforation and seen by general surgeon does not suspect patient has any perforation however there is likelihood of ischemic bowl possibly 2/2 hypoperfusion. we appreciate skin care consultant, will continue to monitor and follow the patient. on 01/[address] Cruz skin care consultant patient right side appears weak and cyanotic patient does not feel any pain, and left chest is cyanotic, the skin care consultant has spoken with an skin care consultant at [facility] patient is accepted waiting for a bed. on 01/21 patient's , son daughter are present in the room, Patient called Dr. Bowen to discuss further, I spoke with Dr. Mccoy, patient's is considering withdrawal of care and possibly hospice, I also spoke with the patient family, they are still have not decided. I have answered all their questions, will continue to monitor and further recommendation to follow. Later on the evening of 01/22 patient family decided to withdraw the care and patient was extubated and move to medical floor, on 01/23 at 13:30 patient was pronounced.
== END 2024-01-24 13:30 | disposition hospice, inpatient (51) | DRG 853 ==
LOC: ANHED 12:12 → ANHIMU 13:08 → ANHICU 14:40 → ANH3MEDSUR 08-24 09:19 → ANHICU 08-24 09:19
PROVIDERS: Internal Medicine; Internal Medicine Nephrology; Physician Assistant; Student in an Organized Health Care Education/Training Program; Urology; Admitting Provider Internal Medicine; Emergency Provider Nurse Practitioner Family; Visit Provider Family Medicine
PROC: 0T768DZ Dilation of Right Ureter with Intraluminal Device, Via Natural or Artificial Opening Endoscopic (ICD-10-PCS; CPT 52352; principal; 2024-01-17 13:30)
DX: A41.9 Sepsis, unspecified organism (principal); J18.9 Pneumonia, unspecified organism; R65.21 Severe sepsis with septic shock; N17.0 Acute kidney failure with tubular necrosis; K72.00 Acute and subacute hepatic failure without coma; J96.90 Respiratory failure, unspecified, unspecified whether with hypoxia or hypercapnia; N13.6 Pyonephrosis; Z68.43 Body mass index [BMI] 50.0-59.9, adult; K55.9 Vascular disorder of intestine, unspecified; E87.21 Acute metabolic acidosis; D68.9 Coagulation defect, unspecified; D69.59 Other secondary thrombocytopenia; I99.8 Other disorder of circulatory system; K58.9 Irritable bowel syndrome, unspecified; E78.5 Hyperlipidemia, unspecified; I11.0 Hypertensive heart disease with heart failure; I50.9 Heart failure, unspecified; M19.90 Unspecified osteoarthritis, unspecified site; Z96.643 Presence of artificial hip joint, bilateral; Z96.653 Presence of artificial knee joint, bilateral; Z96.612 Presence of left artificial shoulder joint; Z96.611 Presence of right artificial shoulder joint; Z99.2 Dependence on renal dialysis; Z90.49 Acquired absence of other specified parts of digestive tract; Z85.3 Personal history of malignant neoplasm of breast; E66.01 Morbid (severe) obesity due to excess calories; E83.51 Hypocalcemia; E83.42 Hypomagnesemia; R73.9 Hyperglycemia, unspecified; Z66 Do not resuscitate
CPT/HCPCS: 31500; 36415; 36430; 36600; 70450; 71045; 71250; 74018; 74176; 76775; 80048; 80053; 80202; 81001; 82375; 82570; 82805; 82947; 82948; 83050; 83605; 83690; 83735; 83880; 84100; 84156; 84443; 84540; 85025; 85027; 85055; 85380; 85384; 85610; 85730; 85999; 86704; 86706; 86900; 86901; 87040; 87077; 87086; 87088; 87186; 87340; 87641; 93005; 94002; 94003; 96361; 96365; 99285; A9270; C1751; C1752; C1758; C1769; C2617; C8929; G0257; J0171; J0457; J0612; J0613; J0690; J0744; J1644; J1720; J1815; J2060; J2250; J2270; J2371; J2405; J2470; J2765; J3010; J3370; J3430; J3475; J7030; J7050; J7060; J7070; J7120; P9017; P9034; P9047; Q5105; Q9957; Q9966

== ENCOUNTER 2024-01-24 13:00 | HOS | payer OTHER, MEDICARE, SELFPAY ==
--- OUTSIDE RECORDS SUMMARY | 2024-08-24 10:04 | XMS_ITS | Clinical Summary ---
Author Organization [facility] Address [address] [place] [address] Care Team Providers Care Insurance Rater Name Role Phone Sanjay Castro MD Primary Care Provider [phone] Lucio Lezama MD Unavailable [phone] David Gorman MD Unavailable [phone] Ziyad Juarez MD Unavailable [phone] Melinda Floyd RN Unavailable Unavailable Allergies Active Allergy Reactions Criticality Noted Date Comments Adhesive Redness,Swelling Medium Adhesive Tape-Silicones Unknown,Swelling Medium 2011 Use skin prep before any tape. Skin Puffs up red sometimes weeps Aspirin Diarrhea,Vomiting Low Azithromycin Diarrhea,Vomiting Low 07/28/2008 Cat Hair Std Allergenic Ext Rhinitis Low 12/21/19 13 Cephalexin Diarrhea,Vomiting Low Clarithromycin Diarrhea,Vomiting Low 07/28/2008 Codeine Vomiting,Nausea And Vomiting Low 07/28/2008 Can take w/ zofran and reglan Doxycycline Diarrhea,Vomiting Low Erythromycin Diarrhea,Vomiting Low Fentanyl Nausea only,Vomiting Low Hydrochlorothiazide Rash Medium 09/20/2013 Hydrocodone Nausea Only,Vomiting Low Now able to tolerate when taken with zofran Ibuprofen Diarrhea,Vomiting Low 07/28/2008 Levofloxacin Rash Medium 03/08/2017 Rash on legs Meperidine Vomiting,Nausea only,Nausea Only Low Molds Extract Rhinitis Low 12/20/2012 Morphine Vomiting Low Able to tolerate post surgery with Zofran and Reglan Opioids - Morphine Analogues Nausea only,Vomiting Low Other Nausea Only,Unknown,Vomiti ng,Nausea And Vomiting Low 07/28/2008 anesthesia Anesthesia-Vomit ting Cats-Nasal/Respi ratory Dust-Nasal/Respi ratory Mold-Nasal/Respi ratory Ragweed-Nasal/Re spiratory Some foods-Diarrhea [place]- Severe Diarrhea Oxycodone Pdb-Dichzsjie-Mnu Nausea And Vomiting,Vomiting,N ausea only Low 07/28/2008 Can take w/ zofran and reglan Oxycodone-Acetaminophen Nausea Only,Vomiting,Nause a And Vomiting,Nausea only Low 07/28/2008 Can take w/ zofran and reglan Oxycodone-Aspirin Nausea Only,Vomiting Low Pentazocine Lactate Nausea Only,Vomiting,Nause a only Low Propoxyphene Vomiting,Nausea only,Nausea Only Low Ragweed Rhinitis Low 12/20/2012 Sulfamethoxazole-Trimethopr im Diarrhea,Other (See comments),Vomiting Low Reaction: Other: Caused knee incisions to turn bright red Troleandomycin Anaphylaxis High Medications atorvastatin (LIPITOR) 10 mg tablet 2 tablets (20 mg total) daily 09/14/19 19 Active ciclopirox 1 % shampoo 08/08/19 19 Active ciclopirox (LOPROX) 0.77 % cream ABI EXT AA BID 3 09/07/[address] (CYMBALTA) 60 mg capsule 1 capsule (60 mg total) daily 6 09/06/19 19 Active furosemide (LASIX) 20 mg tablet 2 tablets (40 mg total) daily 09/14/19 19 Active HYDROcodone-taiwo taminophen (NORCO) 5-325 mg per tablet TK 1 T PO Q 4 TO 6 H PRF PAIN 0 09/05/19 19 Active NARCAN 4 mg/actuation spray,non-aeros ol 06/14/19 19 Active NYSTOP powder APPLY ONCE TO THE AFFECTED AREA TOPICALLY EVERY 8 TO 12 HOURS NEEDED 11 09/07/19 19 Active ondansetron (ZOFRAN) 4 mg tablet TK 1 T PO Q 8 H PRN N 3 08/10/19 19 Active oxyCODONE (ROXICODONE) 5 mg immediate release tablet 1 tablet (5 mg total) every 8 (eight) hours as needed 0 09/06/[address] (PROTONIX) 40 mg EC tablet 1 tablet (40 mg total) daily 08/08/19 19 Active butalbital-acet aminophen-caff (ESGIC) 50-325-40 mg per capsule Take 1 capsule by mouth daily as needed 09/15/19 18 Active acetaminophen (TYLENOL) 500 mg tablet Take 650 mg by mouth as needed Active cholecalciferol (VITAMIN D-3) 1,000 unit capsule Take 2 capsules (2,000 Units total) by mouth daily Active cranberry fruit concentrate 450 mg tablet Take 1 tablet by mouth 2 (two) times a day Active cyanocobalamin (Vitamin B-12) 1,000 mcg tablet Take 2.5 tablets (2,500 mcg total) by mouth 2 (two) times a week Active cyclobenzaprine (FLEXERIL) 10 mg tablet Take 1 tablet (10 mg total) by mouth 09/15/19 18 Active diphenoxylate-a tropine (LOMOTIL) 2.5-0.025 mg per tablet Take 1 tablet by mouth 08/03/19 15 Active fexofenadine (JEREMI) 180 mg tablet Take 1 tablet (180 mg total) by mouth daily 09/05/19 13 Active hyoscyamine (LEVSIN) 0.125 mg tablet Take 1 tablet (0.125 mg total) by mouth every 4 (four) hours as needed 02/22/20 17 Active Lactobacillus rhamnosus GG (CULTURELLE) 10 billion cell capsule Take 1 capsule by mouth 2 (two) times a day Active loperamide (IMODIUM A-D) 2 mg tablet Take 1 tablet (2 mg total) by mouth as needed Active pseudoephedrine ER (SUDAFED) 120 mg 12 hr tablet Take 120 mg by mouth daily 05/09/20 12 Active vitamin E (AQUASOL E) 400 unit capsule Take 400 Units by mouth daily Active fluocinolone (DERMA-SMOOTHE) 0.01 % external oil Apply to affected area on scalp 2-3 times weekly 08/06/19 22 Active fluocinolone (DERMA-SMOOTH/F S) 0.01 % oil 08/06/19 22 Active HYDROcodone-taiwo taminophen (NORCO) 10-325 mg per tablet Take by mouth every 6 (six) hours as needed for pain 11/26/19 22 Active amoxicillin 500 mg tablet/capsule Take 1 tablet/capsule (500 mg total) by mouth Prior to dental procedures 07/10/19 24 Active calcium carbonate (TUMS) 500 mg (200 mg elemental calcium) chewable tablet Take 1 tablet/chew tab (500 mg total) by mouth Active clobetasoL (TEMOVATE) 0.05 % external solution APPLY TOPICALLY TO THE SCALP TWICE DAILY FOR 2 WEEKS ON 2 WEEKS OFF Active nabumetone (RELAFEN) 750 mg tablet Take 1 tablet (750 mg total) by mouth 03/23/20 23 Active spironolactone (ALDACTONE) 25 mg tablet Take 1 tablet (25 mg total) by mouth 04/11/20 23 Active tamoxifen (NOLVADEX) 20 mg tablet Take 1 tablet (20 mg total) by mouth 08/24/19 24 Active tiZANidine (ZANAFLEX) 4 mg tablet Take 1 tablet (4 mg total) by mouth 07/12/19 24 Active triamcinolone (KENALOG) 0.025 % cream Apply topically as needed Active atenoloL (TENORMIN) 100 mg tablet Take 1 tablet (100 mg total) by mouth daily 10/28/19 24 Active atenoloL (TENORMIN) 50 mg tablet Take 1 tablet (50 mg total) by mouth daily Takes 100 mg in the morning and 50 mg in the evening 10/28/19 24 Active empagliflozin (Jardiance) 10 mg tabletIndicatio ns:Heart Failure Take 1 tablet (10 mg total) by mouth daily 30 tablet 11 11/29/19 24 024 Discontinued Active Problems Problem Noted Date Diagnosed Date CESAR (obstructive sleep apnea) 11/18/2023 Overview (11/18/2023): Last Assessment & Plan: History and physical findings are indicative of high pretest probability for having obstructive sleep apnea. I discussed with the patient sleep study as well as treatment options for obstructive sleep apnea including use of CPAP, mandibular advancement device and surgical options. Weight optimization also discussed. At the present time the patient does not wish to have a sleep study. She will continue to sleep in the recliner. If she changes her mind she will let me know. 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 08/12/2021 Arthritis 09/19/2018 Benign essential HTN 09/19/2018 Open knee wound, right, sequela 01/06/2018 Hip pain, bilateral 09/14/2017 Knee pain, bilateral 09/14/2017 History of surgical procedure 06/17/2017 Suspected deep vein thrombosis (DVT) 06/17/2017 Type 2 diabetes mellitus without complications 1 Vitamin B 12 deficiency 2017 Overview (09/19/2018): Overview: Vitamin B12 every other day 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 HLD (hyperlipidemia) 06/10/2015 OA (osteoarthritis) 06/21/2013 Neck pain 10/04/2011 Surgical History Surgery Date Site/Laterality Comments TONSILLECTOMY ADENOIDECTOMY TOTAL KNEE ARTHROPLASTY HIP SURGERY CHOLECYSTECTOMY CATARACT EXTRACTION SKIN CANCER EXCISION COLONOSCOPY GASTROCNEMIUS RECESSION rotation flap SHOULDER SURGERY US GUIDED THORACENTESIS 10/15/2022 N/A Medical History Medical History Date Comments Allergic rhinitis Anxiety Arthritis Cancer (HCC) Gout Hypercholesteremia Hypertension Inflammatory bowel disease Obesity Osteoarthritis Pneumonia Urinary tract infection Weight loss Headache Fatigue Hearing deficit Low back pain Neck pain Family History Medical History Relation Name Comments Arthritis Brother Heart disease Brother Hypertension Brother Arthritis Father Diabetes Father Heart disease Father Hypertension Father Arthritis Mother Diabetes Mother Hypertension Mother Stroke Mother Cancer Paternal Grandmother Family history of malignant neoplasm - (Added by TW Conv) Arthritis Sister Breast cancer Sister Family history of malignant neoplasm of breast - (Added by TW Conv) Cancer Sister Heart disease Sister Hypertension Sister Relation Name Status Comments Brother Father Mother Paternal Grandmother Sister Social History Tobacco Use Types Packs/Day Years Used Date Smoking Tobacco: Never Smokeless Tobacco: Never Tobacco Cessation:Counseling Given: Not Answered Alcohol Use Standard Drinks/Week Comments Never 0 (1 standard drink = 0.6 oz pur e alcohol) AUDIT-C Answer Date Recorded Q1: How often do you have a drink containing alcohol? Never 06/16/2022 Q2: How many drinks containi ng alcohol do you have on a typical day when you are drinking? Patient does not drink Frequency of Binge Drinking Not on file 05/30 Personal Safety Answer Date Recorded Getting School Help Needed Not on file 05/25 Comments No Sex and Gender Information Value Date Recorded Sex Assigned at Not on file Legal Sex Female 2:07 PM CDT Gender Identity Female 11/23/2017 4:05 PM CDT Sexual Orientation Not on file Occupation Industry Job Start Date Job End Date retired Not on file Not on file Not on file Obstetrics History Last Filed Vital Signs Vital Sign Reading Time Taken Comments Blood Pressure 123/76 12/04/2023 4:12 PM CDT Pulse 76 12/04/2023 4:12 PM CDT Temperature 36.6 C (97.8 F) 12/04/2023 4:12 PM CDT Respiratory Rate 12 12/04/2023 4:12 PM CDT Oxygen Saturation 96% 12/04/2023 4:12 PM CDT Inhaled Oxygen Concentration - - Weight 108.9 kg (240 lb) 12/04/2023 4:12 PM CDT Height 154.9 cm (5' 1 ) 12/04/2023 4:12 PM CDT Body Mass Index 45.35 12/04/2023 4:12 PM CDT Plan of Treatment Not on file Goals Goal Patient Goal Type Associated Problems Recent Progress Patient-Stated? Author CCM Chronic Pain Care Plan Chronic Care Management No change(05/11 9:33 AM CHILD HEALTH ASSOCIATE) No Cherri York, RN Note: Problem: Chronic Pain Goals: 1. Minimize further functional decline 2. Maximize quality of life 3. Control pain Strategies: - Activity/exercise program recommendation - Conservative stepwise pain medicine strategy with multi-disciplinary approach - Recommend healthy lifestyle strategies and compensatory methods as needed Medical Devices Implanted Type Area Municipal Services Manager Device Identifier Shelf Expiration Date Model / Serial / Lot Knee Replacement Bilateral: Knee Shoulder Replacement Bilateral: Shoulder Hip Replacement Bilateral: Hip Insurance MEDICARE COMMERCIAL GENERIC MEDICARE [employer] MEDICARE SUPPLEMENT INSURANCE Care Teams Insurance Rater Relationship Specialty Start Date End Date Sanjay Castro MD [address] [place], [place] [address] PCP - General Geriatric Medicine 05/06/22 Lucio Lezama MD [address] [place] [address] Referring Physician Radiation Oncology 11/15/23 David Gorman MD [address] [place] [address] Referring Physician Cardiovascular Disease 11/17/23 Ziyad Juarez MD [address] [place] [address] Supervisor Cereal Transplant 11/17/23 Melinda Floyd, glost tile shaderMarketing And Promotions Manager Cardiology 11/17/23
--- OUTSIDE RECORDS SUMMARY | 2024-08-24 10:04 | XMS_ITS | Continuity of Care Document ---
Author Organization [facility] Address [address] [place] [address] Phone Care Team Providers Care Consulting Psychologist Name Role Phone [facility] Unavailable Unavailable Procedures Procedure Date Cataract Surgery Documented No Events NO Preoperative Order For IV Antibiotic Anesthesia; Lens Cataract Surgery Documented No Events NO Preoperative Order For IV Antibiotic Anesthesia; Lens Advance Directives Directive Yes / No Effective Date File Name No Information Encounters Encounter Description Practice Location Reason(s) For Visit Diagnoses Date Provider Providers Copied on Encounter [facility], [address] [place] [address], [address], tel:[phone] [facility] No Information [facility]. [address], [place], [id number], [place]. tel:[phone] Referring Provider: [address] [place], [address]. tel:[phone] [facility], [address] [place], [address], [place] tel:[phone] [facility] No Information [facility]. [address], [place], [id number], [place]. tel:[phone] Referring Provider: [address] [place], [address]. tel:[phone] Family History Family Member Type Diagnosis Age At Onset No Information Payers Payer name Insurance type Covered republican ID Authoriza tion(s) Medicare [facility] [id number] [place] [employer] [id number] Social History Type Description Quantity Date Captured Comments Sex Female Smoking Status No Information Chief Complaint And Reason For Visit No Information Reason For Referral Reason For Referral No Information History Of Present Illness Encounter Date Complaint History Of Prese nt Illness No Information Functional Status Date Functional Assessmen t No Information Instructions Date Instruction Additional Infor mation No Information Assessments Type Assessment Date No Information Patient Care Teams Name Effective Dates (start - stop) Status Members No Information
--- OUTSIDE RECORDS SUMMARY | 2024-08-24 10:04 | XMS_ITS | Encounter Summary ---
Author Organization [facility] [place] [facility] Address [address] [place] [address] Phone Care Team Providers Care Mathematics Improvement Teacher Name Role Phone Miscellaneous, Not In File Primary Care Provider Unavailable Sanjay Castro MD Primary Care Provider [phone] Unknown, Notinfile Primary Care Provider Unavail able Sanjay Castro MD Primary Care Provider [phone] Lucio Lezama MD Unavailable [phone] David Gorman MD Unavailable [phone] Ziyad Juarez MD Unavailable Sheridan Ventura RN Unavailable Unavailable Melinda Floyd RN Unavailable Unavailable Encounter Details Date Type Department Care Team (Latest Contact Info) Description 06/21/2017 Orders Only [facility] CONVERSION Scanning, Provider Social History Tobacco Use Types Packs/Day Years Used Date Smoking Tobacco: Never Assessed Comments Unknown Sex and Gender Information Value Date Recorded Sex Assigned at Not on file Legal Sex Female 2:07 PM CDT Gender Identity Female 11/23/2017 4:05 PM CDT Sexual Orientation Not on file documented as of this encounter Plan of Treatment Not on file documented as of this encounter Procedures Procedure Name Priority Date/Time Associated Diagnosis Comments VASCULAR LABORATORY REPORT 06/21/2017 4:02 PM COP documented in this encounter Results * VASCULAR LABORATORY REPORT (06/21/2017 4:02 PM COP) Anatomical Region Laterality Modality Ultrasound us Provider Scanning CV VASCULAR PROCEDURES Final R esult documented in this encounter Visit Diagnoses Not on filedocumented in this encounter Care Teams Mathematics Improvement Teacher Relationship Specialty Start Date End Date Miscellaneous, Not In File PCP - General 04/01/17 10/02/17 Sanjay Castro MD [address] [place], [place] [address] PCP - General 10/03/17 09/19/18 Unknown, Notinfile PCP - General 09/20/18 05/05/22 Sanjay Castro MD [address] [place], [place] [address] PCP - General Geriatric Medicine 05/06/22 Lucio Lezama MD [address] [place], [place] [address] Referring Physician Radiation Oncology 11/15/23 David Gorman MD [address] [place], [place] [address] Referring Physician Cardiovascular Disease 11/17/23 Ziyad Juarez MD [address] [place] [address] Interventional Physician Transplant 11/17/23 Sheridan Ventura, RN Registered Nurse Cardiology 11/17/23 11/17/23 Melinda Floyd, construction drillerDry Cans Operator Cardiology 11/17/23 documented as of this encounter
--- OUTSIDE RECORDS SUMMARY | 2024-08-24 10:04 | XMS_ITS | Clinical Summary ---
Author Organization [facility] Address [address] [place] [address] Care Team Providers Care Child Neurologist Name Role Phone Sanjay Castro MD Primary Care Provider [phone] Allergies Active Allergy Reactions Criticality Noted Date Comments Aspirin Diarrhea,Vomiting Sulfamethoxazole-Trimeth oprim Diarrhea,Vomiting Clarithromycin Diarrhea,Vomiting Cephalexin Diarrhea,Vomiting Codeine Vomiting Propoxyphene Nausea,Vomiting Meperidine Nausea,Vomiting Doxycycline Diarrhea,Vomiting Erythromycin Diarrhea,Vomiting Fentanyl Nausea,Vomiting Hydrocodone Nausea,Vomiting Now able to tolerate when taken with zofran Ibuprofen Diarrhea,Vomiting Morphine Vomiting Able to tolerate post surgery with Zofran and Reglan Other Unknown,Nausea,Vomi ting Anesthesia-Vomittin g Cats-Nasal/Respirat ory Dust-Nasal/Respirat ory Mold-Nasal/Respirat ory Ragweed-Nasal/Respi ratory Some foods-Diarrhea [place]- Severe Diarrhea Oxycodone-Acetaminophen Nausea,Vomiting Oxycodone-Aspirin Nausea,Vomiting Pentazocine Lactate Nausea,Vomiting Adhesive Tape Unknown Skin Puffs up red sometimes weeps Azithromycin Diarrhea,Vomiting Medications celecoxib (CELEBREX) 200 MG Capsule Take 200 mg by mouth every morning. Active PARoxetine (PAXIL) 40 MG Tablet Take 40 mg by mouth every morning. Active atenolol (TENORMIN) 25 MG Tablet Take 25 mg by mouth 2 times daily. Active gemfibrozil (LOPID) 300 mg Tablet Take 300 mg by mouth every morning. Active verapamil (CALAN,ISOPTIN) 120 MG Tablet Take 360 mg by mouth every morning. Active ondansetron (ZOFRAN) 4 MG Tablet Take 4 mg by mouth every morning. Active HYDROcodone-taiwo taminophen (NORCO) 5-325 MG Tablet Take by mouth. Take 1 tab in the morning and 1 tab 4-6 hours later Active furosemide (LASIX) 20 MG Tablet Take 20 mg by mouth every morning. Active acetaminophen (TYLENOL) 650 MG Tablet Controlled Release Take 650 mg by mouth every morning. Active other Take by mouth. Caltrate with D- 400 mg take every morning Active CALCIUM-VITAMIN D PO Take 500 Int'l Units by mouth every morning. Active SUMAtriptan (IMITREX) 50 MG Tablet Take by mouth as needed for Migraine. Use as directed. May repeat dose in 2 hours if headache recurs. Active SUMAtriptan Succinate (IMITREX SC) by Subcutaneous route as needed. Active butalbital-acet aminophen-caffe ine (FIORICET, ESGIC) 50-325-40 MG Tablet Take by mouth as needed for Headaches. Active traMADol (ULTRAM) 50 MG Tablet Take by mouth as needed for Pain. Active chlorzoxazone (PARAFON FORTE) 500 MG Tablet Take by mouth as needed for Muscle spasms. Active Lidocaine (LIDODERM EX) by Apply externally route as needed. Active Diphenoxylate-A tropine (LOMOTIL PO) Take by mouth as needed. Active Loperamide HCl (IMODIUM A-D PO) Take by mouth as needed. Active hyoscyamine (ANASPAZ, LEVSIN) 0.125 MG Tablet Take by mouth as needed for Cramping. Active ALPRAZolam (XANAX) 0.25 MG Tablet Take by mouth as needed. Active Phenylephrine HCl (AFRIN ALLERGY NA) by Nasal route as needed. Active Pseudoephedrine HCl (SUDAFED PO) Take by mouth as needed. Active atorvastatin (LIPITOR) 20 MG Tablet Take 20 mg by mouth every evening. Active fexofenadine (JEREMI) 180 MG Tablet Take 180 mg by mouth every evening. Active lansoprazole (PREVACID) 30 MG CAPSULE DELAYED RELEASE Take 30 mg by mouth every evening. Active Lactobacillus Rhamnosus, GG, (CULTURELLE PO) Take by mouth 2 times daily. Active Cyanocobalamin (VITAMIN B-12 PO) Take by mouth. Activ e Cranberry 450 MG Tablet Take by mouth every evening. Active Misc Natural Products (COSAMIN ASU ADVANCED FORMULA) Capsule Take 3 Caps by mouth daily. Active VITAMIN E PO Take by mouth. Ac tive diphenhydrAMINE (BENADRYL) 25 MG Tablet 6 Active nitrofurantoin, macrocrystal-mo nohydrate, (MACROBID) 100 MG Capsule Take 100 mg by mouth 2 times daily. Active Active Problems Problem Noted Date Diagnosed Date High blood pressure High cholesterol Arthritis Acid reflux Benign essential HTN Social History Tobacco Use Types Packs/Day Years Used Date Smoking Tobacco: Never Smokeless Tobacco: Never Alcohol Use Standard Drinks/Week Comments No 0 (1 standard drink = 0.6 oz pur e alcohol) Comments No Sex and Gender Information Value Date Recorded Sex Assigned at Not on file Legal Sex Female 4:54 PM CDT Gender Identity Not on file Sexual Orientation Not on file Last Filed Vital Signs Vital Sign Reading Time Taken Comments Blood Pressure 171/86 07/18/2017 12:51 PM LEGAL BILLING ANALYST Pulse 61 07/18/2017 12:51 PM LEGAL BILLING ANALYST Temperature - - Respiratory Rate - - Oxygen Saturation - - Inhaled Oxygen Concentration - - Weight 127.9 kg (281 lb 14.4 oz) 2017 12:51 PM LEGAL BILLING ANALYST Height 157.5 cm (5' 2 ) 07/18/2017 12:5 1 PM LEGAL BILLING ANALYST Body Mass Index 51.56 07/18/2017 12:51 PM LEGAL BILLING ANALYST Plan of Treatment Health Maintenance Due Date Last Done Comments DEXA Bone Density 1945 Hepatitis C Virus (HCV) Screening 1945 TdaP Immunization 1945 Pneumococcal Immunization (5 0+ years) (1 of 1 - PCV) 1994 Zoster Immunization (1 of 2) 1994 Respiratory Syncytial Virus (RSV) Immunization (Adult) (1 - 1-dose 75+ series) 2019 Influenza Immunization (#1) 2024 SARS-COV-2 Immunization ( - 2023- season) 2024 Hepatitis B Immunization Aged Out No longer eligible based on patient's age to complete this topic Meningococcal Immunization (ACWY) Aged Out No longer eligible based on patient's age to complete this topic Rotavirus Immunization Aged Out No lo nger eligible based on patient's age to complete this topic Insurance MEDICARE [employer] GENER[employer] Care Teams Child Neurologist Relationship Specialty Start Date End Date Sanjay Castro MD PCP - General Internal Medicine 02/01/14
--- OUTSIDE RECORDS SUMMARY | 2024-08-24 10:04 | XMS_ITS | Referral Summary ---
Author Organization [facility] Address [address] [place] [address] Care Team Providers Care Sales & Service Associate Name Role Phone Sanjay Castro MD Primary Care Provider [phone] Lucio Lezama MD Unavailable [phone] David Gorman MD Unavailable [phone] Ziyad Juarez MD Unavailable [phone] Melinda Floyd RN Unavailable Unavailable Allergies Active [...] ratory Mold-Nasal/Respi ratory Ragweed-Nasal/Re spiratory Some foods-Diarrhea [place]- Severe Diarrhea Oxycodone Lee-Nbtuoxjii-Obs Nausea And Vomiting,Vomiting,N ausea only Low 07/28/2008 [...] 06/10/2015 OA (osteoarthritis) 06/21/2013 Neck pain 10/04/2011 Social History Tobacco Use Types Packs/Day Years [...] file Not on file Not on file Last Filed Vital Signs [...] Chronic Care Management No change(05/11 9:33 AM SENIOR ACCOUNT MANAGER) Cherri Lai, RN Note: Problem: Chronic Pain Goals: 1. Minimize further functional decline 2. Maximize quality of life 3. Control pain Strategies: - Activity/exercise program recommendation - Conservative stepwise pain medicine strategy with multi-disciplinary approach - Recommend healthy lifestyle strategies and compensatory methods as needed Medical Devices Implanted Type Area Restaurant Kitchen And Service Manager Device Identifier Shelf Expiration Date Model / Serial / Lot Knee Replacement Bilateral: Knee Shoulder Replacement Bilateral: Shoulder Hip Replacement Bilateral: Hip Insurance MEDICARE [facility] Address: [facility] [address] [place] [address] COMMERCIAL GENERIC MEDICARE [employer] MEDICARE SUPPLEMENT INSURANCE Care Teams Sales & Service Associate Relationship Specialty Start Date End Date Sanjay Castro MD [address] [place] [address] PCP - General Geriatric Medicine 05/06/22 Lucio Lezama MD [address] [place] [address] Referring Physician Radiation Oncology 11/15/23 David Gorman MD [address] [place] [address] Referring Physician Cardiovascular Disease 11/17/23 Ziyad Juarez MD [address] [place] [address] Clothes Drier Assembler Transplant 11/17/23 Gerst, Melinda A., engineer byproductStoreperson Cardiology 11/17/23
== END 2024-01-24 13:30 | disposition expired | DRG 951 ==
LOC: ANHIMU 08-24 09:28
PROVIDERS: Admitting Provider Internal Medicine; Visit Provider Family Medicine
DX: Z51.5 Encounter for palliative care (principal); A41.9 Sepsis, unspecified organism; R65.20 Severe sepsis without septic shock; J18.9 Pneumonia, unspecified organism; R65.21 Severe sepsis with septic shock; N17.0 Acute kidney failure with tubular necrosis; K72.00 Acute and subacute hepatic failure without coma; J96.90 Respiratory failure, unspecified, unspecified whether with hypoxia or hypercapnia; N13.6 Pyonephrosis